=== PATIENT | female | born 1995 | race Caucasian/White ===

== ENCOUNTER 2023-06-03 06:36 | Outpatient (OUT) | payer BC, OTHER, SELFPAY ==
[2023-06-03 07:15] LABS: Basophils Percent Auto 0.3 % (0.2-2.0); Eosinophils Absolute Auto 0.1 10^3/uL (0.0-0.7); Eosinophils Percent Auto 1.2 % (0.9-7.0); Hematocrit 41.3 % (36.0-48.0); Hemoglobin 13.8 g/dL (12.0-16.0); Immature Granulocytes Abs Auto 0.01 10^3/uL (0.00-0.03); Immature Granulocytes Pct Auto 0.2 % (0.0-0.5); Lymphocytes Absolute Auto 1.7 10^3/uL (1.2-3.8); Lymphocytes Percent Auto 29.2 % (20.5-60.0); Mean Corpuscular HGB Conc 33.4 g/dL (29.9-35.2); Mean Corpuscular Hemoglobin 30.9 pg (26.7-34.0); Mean Corpuscular Volume 92.6 fL (81.0-99.0); Mean Platelet Volume 10.9 fL (9.5-13.5); Monocytes Absolute Auto 0.5 10^3/uL (0.3-0.8); Monocytes Percent Auto 8.6 % (1.7-12.0); Neutrophils Absolute Auto 3.6 10^3/uL (1.4-6.5); Neutrophils Percent Auto 60.5 % (43.0-75.0); Platelet Count 188 10^3/uL (150-450); Red Blood Count 4.46 10^6/uL (4.20-5.40); Red Cell Distribution Width 13.1 % (11.0-15.0)
[2023-06-03 07:21] LABS: Estimated Average Glucose 94 mg/dL; Glycohemoglobin A1C 4.9 % (4.5-6.2)
[2023-06-03 07:33] LABS: Alanine Aminotransferase 21 U/L (14-59); Albumin Globulin Ratio 1.1; Albumin Level 3.9 g/dL (3.4-5.0); Alkaline Phosphatase 49 U/L (46-116); Anion Gap 10.5; Aspartate Amino Transferase 17 U/L (15-37); BUN Creatinine Ratio 24.6; Bilirubin Total 0.2 mg/dL (0.2-1.0); Calcium 8.5 mg/dL (8.5-10.1); Carbon Dioxide 28.2 mmol/L (21.0-32.0); Chloride 105 mmol/L (98-107); Estimated GFR (African America >60 (>=60); Estimated GFR (Non-African Ame >60 (>=60); Globulin 3.5 g/dL; Glucose 100 mg/dL (74-106); Potassium 4.7 mmol/L (3.5-5.1); Sodium 139 mmol/L (136-145); Total Protein 7.4 g/dL (6.4-8.2)
[2023-06-03 08:24] LABS: Chol HDL Ratio 2.7; Cholesterol 126 mg/dL (<=200); HDL Cholesterol 47 mg/dL (40-60); Thyroid Stimulating Hormone 2.831 uIU/mL (0.358-3.740); Triglycerides 54 mg/dL (<=150); VLDL CHOLESTEROL 10.8 mg/dL
[2023-06-04 05:12] LABS: HCV Ab Non Reactive (Non Reactive); HIV Ab/p24 Ag Screen Non Reactive (Non Reactive)
== END 2023-06-03 06:37 | disposition home or self-care (01) ==
LOC: LAB 06:36
PROVIDERS: PCP Nurse Practitioner Primary Care; Visit Provider Nurse Practitioner Primary Care
DX: Z00.00 Encounter for general adult medical examination without abnormal findings (principal); Z11.59 Encounter for screening for other viral diseases; Z13.6 Encounter for screening for cardiovascular disorders; Z13.29 Encounter for screening for other suspected endocrine disorder; Z11.4 Encounter for screening for human immunodeficiency virus [HIV]
CPT/HCPCS: 36415; 80053; 80061; 83036; 84443; 85025; 86803; 87389

== ENCOUNTER 2023-07-06 21:55 | Outpatient (REF) | payer BC, SELFPAY ==
[2023-07-11 09:11] LABS: Age Gdln ACOG Testing Note (.); IGP, rfx Aptima HPV ASCU Note (.)
== END 2023-07-06 21:56 | disposition home or self-care (01) ==
LOC: LAB 21:55
PROVIDERS: PCP Nurse Practitioner Primary Care; Visit Provider Obstetrics & Gynecology
DX: Z01.419 Encounter for gynecological examination (general) (routine) without abnormal findings (principal)
CPT/HCPCS: G0145

== ENCOUNTER 2023-08-05 06:12 | Emergency (ER) | payer OTHER, BC, SELFPAY ==
[2023-08-05 06:20] VITALS: BP 98/70; PULSE 80; RESP 16; TEMP 36.6; O2SAT 98
--- NOTE | 2023-08-05 06:32 | PC.NURSE ---
Pt presents to ER post needle stick from work yesterday Pt states she had given a patient a vaccination and then stuck herself in the left hand with the needle Pt has no abnormal signs or symptoms at this time
--- NOTE | 2023-08-05 07:31 | ED.GENADUL1 ---
HPI - General Adult General Chief complaint: Extremity Injury, Upper Stated complaint: NEEDLE STICK/BWC Time Seen by Provider: 08/05/23 07:08 History of Present Illness HPI narrative: 28-year-old female presents for needlestick. 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 She was attempting to close the safety mechanism on the syringe and her hand slipped proximal to the base of the index finger. 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 The patient herself has no symptoms now. Related Data Home Medications Medication Instructions Recorded Confirmed No Known Home Medications 08/05/23 08/05/23 Allergies Allergy/AdvReac Type Severity Reaction Status Date / Time No Known Drug Allergies Allergy Verified 08/05/23 06:23 Review of Systems ROS Narrative A ten point review of systems is negative except as noted above. Exam Narrative Exam Narrative: Nurses note and vital signs reviewed and patient is not hypoxic. General: The patient appears well and in no apparent distress. Patient is resting comfortably sitting in the chair. Skin: Warm, dry, no pallor noted. There is no rash noted. Head: Normocephalic, atraumatic Eye: Normal conjunctiva, no drainage Ears, Nose, Mouth, and Throat: oral mucosa is moist. Nares patent. Cardiovascular: Regular Rate and Rhythm Respiratory: Patient is in no distress, no accessory muscle use, lungs are clear to auscultation, no wheezing, rales or rhonchi GI: nondistended Musculoskeletal: no erythema or dried blood on her hand Neurological: A&O, normal speech Psychiatric: Cooperative Constitutional Vital Signs, click to edit/add: Last Vital Signs Temp 97.8 F 08/05/23 06:20 Pulse 80 08/05/23 06:20 Resp 16 08/05/23 06:20 BP 98/70 08/05/23 06:20 Pulse Ox 98 08/05/23 06:20 O2 Del Method Room Air 08/05/23 06:20 Course Vital Signs Vital signs: Vital Signs Temperature 97.8 F 08/05/23 06:20 Pulse Rate 80 08/05/23 06:20 Respiratory Rate 16 08/05/23 06:20 Blood Pressure 98/70 08/05/23 06:20 Pulse Oximetry 98 08/05/23 06:20 Oxygen Delivery Method Room Air 08/05/23 06:20 Temperature 97.8 F 08/05/23 06:20 Pulse Rate 80 08/05/23 06:20 Respiratory Rate 16 08/05/23 06:20 Blood Pressure 98/70 08/05/23 06:20 Pulse Oximetry 98 08/05/23 06:20 Oxygen Delivery Method Room Air 08/05/23 06:20 Medical Decision Making MDM Narrative Medical decision making narrative: needlestick protocol followed. The patient's tetanus is up-to-date. She'll follow-up with occupational health. Differential Diagnosis Differential Diagnosis: needlestick Discharge Plan Discharge Chief Complaint: Extremity Injury, Upper Clinical Impression: Needlestick injury accident Patient Disposition: Home, Self-Care Time of Disposition Decision: 07:31 Condition: Good Mode of Transportation: Private Vehicle Prescriptions / Home Meds: No Action No Known Home Medications Instructions: Needle Stick Injuries (ED) Additional Instructions: follow-up with occupational health Stand Alone Forms: Portal Instructions Referrals: YANG EMANUEL APRN [Primary Care Provider] - 1 week
[2023-08-06 05:07] LABS: HBsAg Screen Negative (Negative); HCV Antibody Non Reactive (Non Reactive); HIV Ab/p24 Ag Screen Non Reactive (Non Reactive)
[2023-08-06 12:11] LABS: Rapid Plasma Reagin, Quant Non Reactive titer (NonRea<1:1)
== END 2023-08-05 08:41 | disposition home or self-care (01) ==
PROVIDERS: Emergency Provider Emergency Medicine; PCP Nurse Practitioner Primary Care
DX: S61.231A Puncture wound without foreign body of left index finger without damage to nail, initial encounter (principal); Z77.21 Contact with and (suspected) exposure to potentially hazardous body fluids; W46.1XXA Contact with contaminated hypodermic needle, initial encounter
CPT/HCPCS: 36415; 86592; 86803; 87340; 87389; 99283

== ENCOUNTER 2023-08-17 22:22 | Outpatient (REF) | payer BC, SELFPAY | END 2023-08-17 22:23 | disposition home or self-care (01) | LOC: LAB 22:22 | PROVIDERS: PCP Nurse Practitioner Primary Care; Visit Provider Nurse Practitioner Primary Care | DX: R30.0 Dysuria (principal) | CPT/HCPCS: 87086 ==

== ENCOUNTER 2023-10-15 07:23 | Outpatient (OUT) | payer BC, SELFPAY ==
[2023-10-15 08:32] LABS: HCG Quantitative 226 mIU/mL
--- OUTSIDE RECORDS SUMMARY | 2023-11-04 00:29 | XMS_ITS | CCD ---
Author Name Unknown Address [address] [place] [address] Organization [facility] Care Team Providers Care Photo Checker And Assembler Name Role Phone TARAS, DR EARLY Admitting Unavailable KARMARTK, DR EARLY Attending Unavailable HOY, DR GOLD Primary Care Unavailable KARASIK, DR EARLY Consulting Unavailable ZIEBER, DR SONIA Keen Consulting Unavailable KARASIK, DR EARLY Admitting Unavailable KARASIK, DR EARLY Attending Unavailable HOY, DR GOLD Primary Care Unavailable KARASIK, DR EARLY Consulting Unavailable KACEYY, DR GOLD Admitting Unavailable HOY, DR GOLD Attending Unavailable HOY, DR GOLD Primary Care Unavailable HOY, DR GOLD Consulting Unavailable HOY, DR GOLD Primary Care Unavailable HAWTHORNE, DR COREY Keen Admitting Unavailable HAWTHORNE, DR COREY Keen Attending Unavailable YAROSH, MARLENI Consulting Unavailable SHAISTA, VIVIEN Consulting Unavailable KACEYY, DR GOLD Admitting Unavailable HOY, DR GOLD Attending Unavailable HOY, DR GOLD Primary Care Unavailable HOY, DR GOLD Admitting Unavailable HOY, DR GOLD Attending Unavailable ROGERIO, DR GOLD Primary Care Unavailable KACEYY, DR GOLD Consulting Unavailable KACEYY, DR GOLD Admitting Unavailable HOY, DR GOLD Attending Unavailable HOY, DR GOLD Primary Care Unavailable HOY, DR GOLD Consulting Unavailable HOY, DR GOLD Admitting Unavailable KACEYY, DR GOLD Attending Unavailable KACEYY, DR GOLD Primary Care Unavailable ROGERIO, DR GOLD Consulting Unavailable KARASIK, DR EARLY Admitting Unavailable KARASIK, DR EARLY Attending Unavailable HOY, DR GOLD Primary Care Unavailable KARMARTK, DR EARLY Consulting Unavailable Problems Active Problems Problem Classification Problem Date Documented Date Episodic/Chronic Abdominal pain (4 sources) Pelvic and perineal pain; Translations: [PELVIC AND PERINEAL PAIN] Onset: 11-05-2022 Episodic Congestive heart failure; nonhypertensive (1 source) Unspecified diastolic (congestive) heart failure; Translations: [UNSPECIFIED DIASTOLIC HEART FAILURE] Onset: 02-05-2022 Chronic Deficiency and other anemia (1 source) Anemia, unspecified; Translations: [ANEMIA UNSPECIFIED] Onset: 11-07-2022 Episodic Diabetes mellitus without complication (1 source) Other abnormal glucose; Translations: [OTHER ABNORMAL GLUCOSE] Onset: 11-07-2022 Episodic Hypertension with complications and secondary hypertension (1 source) Hypertensive heart disease with heart failure; Translations: [HTN HEART DISEASE W/HEART FAIL] Onset: 02-05-2022 Chronic Malaise and fatigue (1 source) Other fatigue; Translations: [OTHER FATIGUE] Onset: 11-07-2022 Episodic Other female genital disorders (4 sources) Other specified noninflammatory disorders of vagina; Translations: [OTH SPEC NONINFLAMMATORY D/O VAGINA] Onset: 11-04-2022 Episodic Other upper respiratory infections (5 sources) Acute sinusitis, unspecified; Translations: [ACUTE SINUSITIS UNSPECIFIED] Onset: 01-15-2022 Episodic Unclassified (3 sources) CONTACT W/AND (SUSP) EXPOS COVID-19; Translations: [CONTACT W/AND (SUSP) EXPOS COVID-19] Onset: 01-15-2022 Viral infection (1 source) COVID-19; Translations: [COVID-19] Onset: 06-05-2022 Past or Other Problems Problem Classification Problem Date Documented Date Episodic/Chronic Immunizations and screening for infectious disease (1 source) Encounter for screening for human papillomavirus (HPV); Translations: [ENC SCREENING HUMAN PAPILLOMAVIRUS] Onset: 05-22-2022 Episodic Other circulatory disease (4 sources) Orthostatic hypotension; Translations: [ORTHOSTATIC HYPOTENSION] Onset: 02-01-2022 Episodic Other connective tissue disease (3 sources) Pain in right foot; Translations: [PAIN IN RIGHT FOOT] Onset: 03-27-2022 Episodic Other screening for suspected conditions (not mental disorders or infectious disease) (4 sources) Encounter for screening for malignant neoplasm of cervix; Translations: [ENC SCREENING MALIG NEOPLASM CERV] Onset: 05-16-2022 Episodic Other skin disorders (1 source) Corns and callosities; Translations: [CORNS AND CALLOSITIES] Onset: 03-28-2022 Episodic Skin and subcutaneous tissue infections (1 source) Cellulitis of right lower limb; Translations: [CELLULITIS OF RIGHT LOWER LIMB] Onset: 03-28-2022 Episodic Unclassified (1 source) CONTACT W/AND (SUSP) EXPOS COVID-19; Translations: [CONTACT W/AND (SUSP) EXPOS COVID-19] Onset: 06-04-2022 Results Test Name Value Interpretation Reference Range Facil ity CHLAMYDIA/GONOCOCCUS BACILIO (SW AB/URINE/PAPon 11-07-2022 Chlamydia trachomatis, BACILIO Negative Normal Negative [facility] Comment on above: Performed By: #### L IPID, CMP, T7, BNP, TSH #### [facility] [address], [place] [address] Dr. David Das Neisseria gonorrhoeae, BACILIO Negative Normal Negative [facility] Comment on above: Performed By: #### L IPID, CMP, T7, BNP, TSH #### [facility] [address], [place] [address] Dr. David Das US PELVIS AND TRANSVAGon US PELVIS AND TRANSVAG EXAMINATION: US P ARIEL AND TRANSVAG HISTORY: Pelvic and perineal pain COMPARISON: Ultrasound pelvis 10/30/2020 TECHNIQUE: Transabdominal and transvaginal sonographic examination. FINDINGS: UTERUS: Normal size and appearance. Uterus size: 9.4 x 5.0 x 5.0 cm ENDOMETRIUM: Normal homogeneous appearance. Endometrial thickness: 12 mm RIGHT OVARY: Normal size and appearance. Duplex Doppler demonstrates normal waveform and flow; resistive index 0.5. Ovary size: 3.5 x 2.3 x 3.5 cm LEFT OVARY: Normal size and appearance. Duplex Doppler demonstrates normal waveform and flow; resistive index 0.5. Ovary size: 2.8 x 1.7 x 3.2 cm CUL-DE-SAC: Unremarkable. No significant free fluid. BLADDER: Unremarkable. OTHER: None. IMPRESSION: 1. No acute or suspicious findings to account for patient's symptoms. Electronically authenticated by: SONIA CHEN Date: 2022-11-06 17:13 Normal [facility] V[facility]INITIS/VAGINOSIS DNA PROB Farhan 11-06-2022 Angelia species Negative Normal Negative [facility] Comment on above: Performed By: #### V AGINT #### [facility] [address] [place] [address] Dr. David Das Gardnerella vaginalis Negative Normal Negative [facility] Comment on above: Performed By: #### V AGINT #### [facility] [address] [place] [address] Dr. David Das Trichomonas vaginalis Negative Normal Negative [facility] Comment on above: Performed By: #### V AGINT #### [facility] [address] [place] [address] Dr. David Das INSULINon 11-04-2022 Insulin 17.4 uIU/mL Normal 2.6-24.9 [facility] Comment on above: Performed By: #### I NSULIN #### [facility] [address] [place] [address] Dr. David Das CBC AUTO DIFFon 11-03-2022 BASO # 0.0 103/ul Normal 0.0-0.1 [facility] Comment on above: Performed By: #### L IPID, CMP, T7, BNP, TSH #### [facility] [address] [place] [address] Dr. David Das Basophils/100 WBC (Bld) 0.4 % Normal 0.2-2.0 [facility] Comment on above: Performed By: #### L IPID, CMP, T7, BNP, TSH #### [facility] [address] [place] [address] Dr. David Das EO # 0.1 103/ul Normal 0.0-0.7 [facility] Comment on above: Performed By: #### L IPID, CMP, T7, BNP, TSH #### [facility] [address] [place] [address] Dr. David Das Eosinophils/100 WBC (Bld) 1.4 % Normal 0.9-7.0 [facility] Comment on above: Performed By: #### L IPID, CMP, T7, BNP, TSH #### [facility] [address] [place] [address] Dr. David Das Erythrocyte distribution wid th (RBC) [Ratio] 12.4 % Normal 11.0-15.0 [facility] Comment on above: Performed By: #### L IPID, CMP, T7, BNP, TSH #### [facility] [address] [place] [address] Dr. aDvid Das Hematocrit (Bld) [Volume fraction] 43.8 % Normal 3 6.0-48.0 [facility] Comment on above: Performed By: #### L IPID, CMP, T7, BNP, TSH #### [facility] [address] [place] [address] Dr. David Das Hemoglobin (Bld) [Mass/Vol] 14.6 g/dL Normal 12.0-16. 0 [facility] Comment on above: Performed By: #### L IPID, CMP, T7, BNP, TSH #### [facility] [address] [place] [address] Dr. David Das IG # 0.01 10e3/ul Normal 0.00-0.03 [facility] Comment on above: Performed By: #### L IPID, CMP, T7, BNP, TSH #### [facility] [address] [place] [address] Dr. David Das IG % 0.2 % Normal 0.0-0.5 [facility] Comment on above: Performed By: #### L IPID, CMP, T7, BNP, TSH #### [facility] [address] [place] [address] Dr. David Das LYMPH # 1.8 103/ul Normal 1.2-3.8 [facility] Comment on above: Performed By: #### L IPID, CMP, T7, BNP, TSH #### [facility] [address] [place] [address] Dr. David Das Lymphocytes/100 WBC (Bld) 33.3 % Normal 20.5-60.0 [facility] Comment on above: Performed By: #### L IPID, CMP, T7, BNP, TSH #### [facility] [address] [place] [address] Dr. David Das MANUAL DIFF REQ NO Normal [facility] Comment on above: Performed By: #### L IPID, CMP, T7, BNP, TSH #### [facility] [address] [place] [address] Dr. David Das MCH (RBC) [Entitic mass] 30.7 pg Normal 26.7-34.0 [facility] Comment on above: Performed By: #### L IPID, CMP, T7, BNP, TSH #### [facility] [address] [place] [address] Dr. David Das MCHC (RBC) [Mass/Vol] 33.3 g/dL Normal 29.9-35.2 [facility] Comment on above: Performed By: #### L IPID, CMP, T7, BNP, TSH #### [facility] [address] [place] [address] Dr. David Das MCV (RBC) [Entitic vol] 92.0 fL Normal 81.0-99.0 [facility] Comment on above: Performed By: #### L IPID, CMP, T7, BNP, TSH #### [facility] [address] [place] [address] Dr. David Das MONO # 0.4 103/ul Normal 0.3-0.8 [facility] Comment on above: Performed By: #### L IPID, CMP, T7, BNP, TSH #### [facility] [address] [place] [address] Dr. David Das Monocytes/100 WBC (Bld) 7.6 % Normal 1.7-12.0 [facility] Comment on above: Performed By: #### L IPID, CMP, T7, BNP, TSH #### [facility] [address] [place] [address] Dr. David Das NEUT # 3.2 103/ul Normal 1.4-6.5 [facility] Comment on above: Performed By: #### L IPID, CMP, T7, BNP, TSH #### [facility] [address] [place] [address] Dr. David Das Neutrophils/100 WBC (Bld) 57.1 % Normal 43.0-75.0 [facility] Comment on above: Performed By: #### L IPID, CMP, T7, BNP, TSH #### [facility] [address] [place] [address] Dr. David Das Platelet mean volume (Bld) [ Entitic vol] 10.5 fL Normal 9.5-13.5 [facility] Comment on above: Performed By: #### L IPID, CMP, T7, BNP, TSH #### [facility] [address] [place] [address] Dr. David Das PLT 200 103/ul Normal 150-450 [facility] Comment on above: Performed By: #### L IPID, CMP, T7, BNP, TSH #### [facility] [address] [place] [address] Dr. David Das RBC 4.76 106/ul Normal 4.20-5.40 [facility] Comment on above: Performed By: #### L IPID, CMP, T7, BNP, TSH #### [facility] [address] [place] [address] Dr. David Das WBC 5.5 103/ul Normal 4.0-11.0 [facility] Comment on above: Performed By: #### L IPID, CMP, T7, BNP, TSH #### [facility] [address] [place] [address] Dr. David Das FREE THYROXINE INDEX T7on FTI 2.38 Normal 1.30-4.50 [facility] Comment on above: Performed By: #### L IPID, CMP, T7, BNP, TSH #### [facility] [address] [place] [address] Dr. David Das T3U 33.0 % Normal 30.0-39.0 [facility] Comment on above: Performed By: #### L IPID, CMP, T7, BNP, TSH #### [facility] [address] [place] [address] Dr. David Das T4 [Mass/Vol] 7.20 ug/dL Normal 4.80-13.90 [facility] Comment on above: Performed By: #### L IPID, CMP, T7, BNP, TSH #### [facility] [address] [place] [address] [address] David Das GLYCOHEMOGLOBIN A1Con 2021 ADA RECOMMENDATION SEE BELOW Normal [facility] Comment on above: Result Comment: ADA RECOMMENDED LIMIT 4.0 - 6.0 ADA THERAPEUTIC TARGET < 7.0 ACTION SUGGESTED > 7.0 Performed By: #### L IPID, CMP, T7, BNP, TSH #### [facility] [address] [place] [address] [address] David Das Glucose [Mass/Vol] 103 mg/dL Normal [facility] Comment on above: Performed By: #### L IPID, CMP, T7, BNP, TSH #### [facility] [address] [place] [address] [address] David Das HbA1c (Bld) [Mass fraction] 5.2 % Normal 4.5-6.2 [facility] Comment on above: Performed By: #### L IPID, CMP, T7, BNP, TSH #### [facility] [address] [place] [address] [address] David Das IRONon 11-03-2022 Iron [Mass/Vol] 117.0 ug/dL Normal 50.0-170.0 [facility] Comment on above: Performed By: #### L IPID, CMP, T7, BNP, TSH #### [facility] [address] [place] [address] Dr. David Das LIPID PROFILEon 11-03-2022 CHOL-HDL RATIO NORM SEE BELOW Normal [facility] Comment on above: Result Comment: 3.3 - 4.4 LOW RISK 4.4 - 7.1 AVERAGE RISK 7.1 - 11.0 MODERATE RISK >11.0 HIGH RISK Performed By: #### L IPID, CMP, T7, BNP, TSH #### [facility] [address] [place] [address] [address] David Das Cholesterol [Mass/Vol] 120 mg/dL Normal <=200 Th [facility] Comment on above: Performed By: #### L IPID, CMP, T7, BNP, TSH #### [facility] [address] [place] [address] [address] David Das Cholesterol in HDL [Mass/Vol] 54 mg/dL Normal 40-60 [facility] Comment on above: Performed By: #### L IPID, CMP, T7, BNP, TSH #### [facility] [address] [place] [address] [address] David Das Cholesterol in LDL [Mass/Vol] 56.8 mg/dL Normal [facility] Comment on above: Performed By: #### L IPID, CMP, T7, BNP, TSH #### [facility] [address] [place] [address] Dr. David Das Cholesterol.total/Cholestero l in HDL [Mass ratio] 2.2 {ratio} Normal [facility] Comment on above: Performed By: #### L IPID, CMP, T7, BNP, TSH #### [facility] [address] [place] [address] Dr. David Das HDL NORMAL > or = 60 mg/dl - LO W CARDIOVASCULAR RISK <40 mg/dl - HIGH CARDIOVASCULAR RISK Normal [facility] Comment on above: Performed By: #### L IPID, CMP, T7, BNP, TSH #### [facility] [address] [place] [address] Dr. David Das LDL CALC NORMAL SEE BELOW Normal [facility] Comment on above: Result Comment: <100 mg/dl OPTIMAL 100 - 129 mg/dl NEAR OR ABOVE OPTIMAL 130 - 159 mg/dl BORDERLINE HIGH 160 - 189 mg/dl HIGH >190 mg/dl VERY HIGH Performed By: #### L IPID, CMP, T7, BNP, TSH #### [facility] [address] [place] [address] Dr. David Das Triglyceride [Mass/Vol] 46 mg/dL Normal <=150 T [facility] Comment on above: Performed By: #### L IPID, CMP, T7, BNP, TSH #### [facility] [address] [place] [address] Dr. David Das VLDL CALC 9.2 mg/dL Normal [facility] Comment on above: Performed By: #### L IPID, CMP, T7, BNP, TSH #### [facility] [address] [address] [address] David Das PROF 14(COMP METB)on 022 Albumin [Mass/Vol] 4.1 g/dL Normal 3.4-5.0 [facility] Comment on above: Performed By: #### L IPID, CMP, T7, BNP, TSH #### [facility] [address] [place] [address] [address] David Das Albumin/Globulin [Mass ratio] 1.2 {ratio} Normal [facility] Comment on above: Performed By: #### L IPID, CMP, T7, BNP, TSH #### [facility] [address] [place] [address] Dr. David Das ALP [Catalytic activity/Vol] 50 U/L Normal 46-116 [facility] Comment on above: Performed By: #### L IPID, CMP, T7, BNP, TSH #### [facility] [address] [place] [address] [address] David Das ALT [Catalytic activity/Vol] 15 U/L Normal 14-59 [facility] Comment on above: Performed By: #### L IPID, CMP, T7, BNP, TSH #### [facility] [address] [place] [address] [address] David Das Anion gap [Moles/Vol] 11.0 mmol/L Normal [facility] Comment on above: Performed By: #### L IPID, CMP, T7, BNP, TSH #### [facility] [address] [place] [address] [address] David Das AST [Catalytic activity/Vol] 16 U/L Normal 15-37 [facility] Comment on above: Performed By: #### L IPID, CMP, T7, BNP, TSH #### [facility] [address] [address] [address] David Das Bilirubin [Mass/Vol] 0.5 mg/dL Normal 0.2-1.0 [facility] Comment on above: Performed By: #### L IPID, CMP, T7, BNP, TSH #### [facility] [address] [address] [address] David Das Calcium [Mass/Vol] 8.7 mg/dL Normal 8.5-10.1 [facility] Comment on above: Performed By: #### L IPID, CMP, T7, BNP, TSH #### [facility] [address] [place] [address] [address] David Das Chloride [Moles/Vol] 104 mmol/L Normal 98-107 [facility] Comment on above: Performed By: #### L IPID, CMP, T7, BNP, TSH #### [facility] [address] [place] [address] Dr. David Das CO2 [Moles/Vol] 31.4 mmol/L Normal 21.0-32.0 [facility] Comment on above: Performed By: #### L IPID, CMP, T7, BNP, TSH #### [facility] [address] [place] [address] Dr. David Das Creatinine [Mass/Vol] 0.64 mg/dL Normal 0.55-1.02 [facility] Comment on above: Performed By: #### L IPID, CMP, T7, BNP, TSH #### [facility] [address] [place] [address] Dr. David Das EGFR-AF SWAZI >60 Normal >=60 [facility] Comment on above: Performed By: #### L IPID, CMP, T7, BNP, TSH #### [facility] [address] [place] [address] Dr. David Das EGFR-NON AF SWAZI >60 Normal >=60 [facility] Comment on above: Performed By: #### L IPID, CMP, T7, BNP, TSH #### [facility] [address] [place] [address] Dr. David Das Globulin (S) [Mass/Vol] 3.4 g/dL Normal T [facility] Comment on above: Performed By: #### L IPID, CMP, T7, BNP, TSH #### [facility] [address] [address] [address] David Das Glucose [Mass/Vol] 92 mg/dL Normal 74-106 [facility] Comment on above: Performed By: #### L IPID, CMP, T7, BNP, TSH #### [facility] [address] [place] [address] [address] David Das Potassium [Moles/Vol] 4.4 mmol/L Normal 3.5-5.1 [facility] Comment on above: Performed By: #### L IPID, CMP, T7, BNP, TSH #### [facility] [address] [place] [address] Dr. David Das Protein [Mass/Vol] 7.5 g/dL Normal 6.4-8.2 [facility] Comment on above: Performed By: #### L IPID, CMP, T7, BNP, TSH #### [facility] [address] [place] [address] Dr. David Das Sodium [Moles/Vol] 142 mmol/L Normal 136-145 [facility] Comment on above: Performed By: #### L IPID, CMP, T7, BNP, TSH #### [facility] [address] [place] [address] Dr. David Das Urea nitrogen [Mass/Vol] 11.0 mg/dL Normal 7.0-18.0 [facility] Comment on above: Performed By: #### L IPID, CMP, T7, BNP, TSH #### [facility] [address] [place] [address] Dr. David Das Urea nitrogen/Creatinine [Mass ratio] 17.2 mg/mg Normal [facility] Comment on above: Performed By: #### L IPID, CMP, T7, BNP, TSH #### [facility] [address] [place] [address] Dr. David Das TSHon 11-03-2022 TSH 1.923 uIU/mL Normal 0.358-3.740 [facility] Comment on above: Performed By: #### L IPID, CMP, T7, BNP, TSH #### [facility] [address] [address] [address] David Das Covid-19 PCR ([facility])on 05-17 SARS-CoV-2 (COVID-19) RNA BACILIO+probe Ql (Unsp spec) Detected Critically abnormal NOT DETECTED [facility] Comment on above: Result Comment: This test is not yet approved or cleared by the [place] FDA. When there are no FDA-approved or cleared tests available, and other criteria are met, FDA can make tests available under an emergency access mechanism called an Emergency Use Authorization (EUA). The EUA for this test is supported by the [place] of Health and Human Service's declaration that circumstances exist to justify the emergency use of in vitro diagnostics for the detection and/or diagnosis of the virus that causes COVID-19. This EUA will remain in effect for the duration of the COVID-19 declaration justifying emergency of IVDs, unless it is terminated or revoked by the FDA (after which the test may no longer be used). Performed By: #### C VDTBH #### [facility] [address] [address] [address] David Das PAP ACOG PANEL 2: 21 to 29on 05-23-2022 . . Normal [facility] Comment on above: Performed By: #### L IPID, CMP, T7, BNP, TSH #### [facility] [address] [id number] Daivd Das Age Gdln ACOG Testing - Normal [facility] Comment on above: Performed By: #### L IPID, CMP, T7, BNP, TSH #### [facility] [address], [place] [address] Dr. David Das DIAGNOSIS: Comment Normal [facility] Comment on above: Result Comment: NEGA TIVE FOR INTRAEPITHELIAL LESION OR MALIGNANCY. Performed By: #### L IPID, CMP, T7, BNP, TSH #### [facility] [address] [address] [address] David Das Methodology: Comment Normal [facility] Comment on above: Result Comment: This liquid based ThinPrep(R) pap test was screened with the use of an image guided system. Performed By: #### L IPID, CMP, T7, BNP, TSH #### [facility] [address] [address] [address] David Das Note: Comment Normal [facility] Comment on above: Result Comment: The Pap smear is a screening test designed to aid in the detection of premalignant and malignant conditions of the uterine cervix. It is not a diagnostic procedure and should not be used as the sole means of detecting cervical cancer. Both false-positive and false-negative reports do occur. . Performed By: #### L IPID, CMP, T7, BNP, TSH #### [facility] [address] [address] [address] David Das Performed by: Comment Normal [facility] Comment on above: Result Comment: Cayla Jay, Passenger Vessel Chef (ASCP) Performed By: #### L IPID, CMP, T7, BNP, TSH #### [facility] [address] [address] [address] David Das Reflex Criteria: Comment Normal [facility] Comment on above: Result Comment: The HPV DNA reflex criteria were not met with this specimen result therefore, no HPV testing was performed. . Performed By: #### L IPID, CMP, T7, BNP, TSH #### [facility] [address] [address] [address] David Das Specimen adequacy: Comment Normal [facility] Comment on above: Result Comment: Sati sfactory for evaluation. Endocervical and/or squamous metaplastic cells (endocervical component) are present. Areas of partially obscuring inflammatory exudate are present. Performed By: #### L IPID, CMP, T7, BNP, TSH #### [facility] [id number] David Das XR FOOT RT MIN 3 VIEWSon XR FOOT RT MIN 3 VIEWS IMAGES REVIEWED: XR FOOT RT MIN 3 VIEWS COMPARISON: None available. CLINICAL INDICATION: Pain, no injury. FINDINGS/IMPRESSION: Unremarkable radiographic appearance of the right foot. Electronically authenticated by: VIVIEN NOONAN Date: 2022-03-27 20:26 Normal [facility] Pathology Noteon 02-24-2022 Pathology Note [id number]:127 Normal [facility] Ambulatory Visit Summaryon 0 02-19-2022 Ambulatory Visit Summary ABEL ROBISON :1995 Visit Date:02/19/2022 Ambulatory Visit Instructions Your Diagnosis Changing nevus Your Care Team Attending Physician - CHAMP FUENTES, Marleni Keen Primary Care Physician - Rogerio FUENTES, Alla This Is Your Medications List ethinyl estradiol-norgestimate (Ortho Tri-Cyclen) Procedures Performed EGD - Esophagogastroduodenoscopy, Tonsillectomy. Medications What How Much When Instructions Unchanged ethinyl estradiol-norgestimate (Ortho Tri-Cyclen) 1 Tablets By Mouth Every day Allergies No Known Allergies No Known Medication Allergies Problems Ongoing - Any problem that you are currently receiving treatment for. Asthma BMI 26.0-26.9,adult Changing nevus IBS (irritable bowel syndrome) Orthostatic hypotension Scoliosis Normal [facility] General Surgery Office/Clini c Noteon 02-19-2022 General Surgery Office/Clinic Note Chief Complaint in-office excisional biopsy HPI Staff Presents for in-office excisional biopsy x 2. History of Present Illness patient here for excisional biopsy of right arm nevus; no changes since recent evaluation; also complains of enlarging right parietal scalp skin lesion, becomes irritated, no ulceration or bleeding. Review of Systems ROS - Provider Constitutional: no fever, no sweats, no weight loss. Eyes: no glasses, no blurred vision, no visual loss. ENMT: no dentures, no hoarseness, no swallowing difficulties, no hearing loss, no ear infection(s), no nose bleeds. Cardiovascular: normal blood pressure, no chest pain, regular heartbeat, no heart murmur. Respiratory: no shortness of breath, no cough, no asthma, no wheezing. Gastrointestinal: no nausea, no vomiting, no diarrhea, no constipation, no blood in stool, no change in bowel habits, no abdominal pain, no hepatitis. Genitourinary: no kidney stones, no urine infection, no dysuria. Musculoskeletal: no pain, no weakness. Skin: no changing moles, no rash, no skin lumps. Neurologic: no seizures, no epilepsy, no headache. Psychiatric: no emotional or psychiatric problem. Heme/Lymph: no bleeding problems, no anemia, no blood clots, no transfusions. Allergy/Immunologic: no swollen lymph nodes/glands, no IV drug abuse. Other: Additional ROS info: Except as noted in the above Review of Systems and in the History of Present Illness, all other systems have been reviewed and are negative or noncontributory. Physical Exam skin: right forearm with 6 mm raised irregular nevus, irregular pigmentation; right parietal scalp with 5 mm raised, nonpigmented verrucous lesion. Procedure patient brought to the procedure room, placed in supine position, area prepped and draped in sterile fashion; anesthetized with 1 % lidocaine; scalp lesion excised in elliptical fashion down to subcutaneous fat; total length 6mm; closed with interrupted 4-0 nylon sutures; right forearm lesion excised and closed in an identical fashion, total length 1.7 cm; tolerated well; ebl < 3 ml; sterile dressing applied. Assessment/Plan 1. 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 2. Neoplasm of uncertain behavior of skin (D48.5: Neoplasm of uncertain behavior of skin) see # 1 Follow-up No qualifying data available Problem List/Past Medical History Ongoing Asthma BMI 26.0-26.9,adult Changing nevus IBS (irritable bowel syndrome) Neoplasm of uncertain behavior of skin Orthostatic hypotension Scoliosis Historical No qualifying data Procedure/Surgical History EGD - Esophagogastroduodenoscopy, Tonsillectomy. Medications Ortho Tri-Cyclen, 1 tab(s), Oral, Daily Allergies No Known Allergies No Known Medication Allergies Social History Alcohol - Denies Alcohol Use, 02/12/2022 Substance Abuse - Denies Substance Abuse, 02/12/2022 Tobacco Never (less than 100 in lifetime) Tobacco Use:. Never Smokeless Tobacco Use:., 02/12/2022 Family History Anxiety: Mother. COPD: Mother. Depression: Father. Hypertension: Sister. Immunizations Vaccine Date Status influenza virus vaccine, inactivated 07/2021 Recorded Normal [facility] Comment on above: Result Comment: Elec tronically Signed By: CHAMP FUENTES, Marleni Fletcher\Date and Time Signed: 02/19/22 17:00 EDT Facesheeton 02-12-2022 Facesheet [id number] :127 Normal [facility] BNPon 02-01-2022 Natriuretic peptide B (Bld) [Mass/Vol] 64.0 pg/mL Normal <=450.0 [facility] Comment on above: Performed By: #### L IPID, CMP, T7, BNP, TSH #### [facility] [address] [place] [address] Dr. David Das CBC AUTO DIFFon 02-01-2022 BASO # 0.0 103/ul Normal 0.0-0.1 [facility] Comment on above: Performed By: #### L IPID, CMP, T7, BNP, TSH #### [facility] [address] [place] [address] Dr. David Das Basophils/100 WBC (Bld) 0.4 % Normal 0.2-2.0 T [facility] Comment on above: Performed By: #### L IPID, CMP, T7, BNP, TSH #### [facility] [address] [place] [address] Dr. David Das EO # 0.1 103/ul Normal 0.0-0.7 [facility] Comment on above: Performed By: #### L IPID, CMP, T7, BNP, TSH #### [facility] [address] [place] [address] Dr. David Das Eosinophils/100 WBC (Bld) 1.8 % Normal 0.9-7.0 [facility] Comment on above: Performed By: #### L IPID, CMP, T7, BNP, TSH #### [facility] [address] [place] [address] Dr. David Das Erythrocyte distribution wid th (RBC) [Ratio] 12.5 % Normal 11.0-15.0 [facility] Comment on above: Performed By: #### L IPID, CMP, T7, BNP, TSH #### [facility] [address] [place] [address] Dr. David Das Hematocrit (Bld) [Volume fraction] 43.6 % Normal 3 6.0-48.0 [facility] Comment on above: Performed By: #### L IPID, CMP, T7, BNP, TSH #### [facility] [address] [place] [address] Dr. David Das Hemoglobin (Bld) [Mass/Vol] 14.2 g/dL Normal 12.0-16. 0 [facility] Comment on above: Performed By: #### L IPID, CMP, T7, BNP, TSH #### [facility] [address] [place] [address] Dr. David Das IG # 0.01 10e3/ul Normal 0.00-0.03 [facility] Comment on above: Performed By: #### L IPID, CMP, T7, BNP, TSH #### [facility] [address] [place] [address] Dr. David Das IG % 0.2 % Normal 0.0-0.5 [facility] Comment on above: Performed By: #### L IPID, CMP, T7, BNP, TSH #### [facility] [address] [place] [address] Dr. David Das LYMPH # 1.8 103/ul Normal 1.2-3.8 [facility] Comment on above: Performed By: #### L IPID, CMP, T7, BNP, TSH #### [facility] [address] [place] [address] Dr. David Das Lymphocytes/100 WBC (Bld) 32.0 % Normal 20.5-60.0 [facility] Comment on above: Performed By: #### L IPID, CMP, T7, BNP, TSH #### [facility] [address] [place] [address] Dr. David Das MANUAL DIFF REQ NO Normal [facility] Comment on above: Performed By: #### L IPID, CMP, T7, BNP, TSH #### [facility] [address] [place] [address] Dr. David Das MCH (RBC) [Entitic mass] 30.8 pg Normal 26.7-34.0 [facility] Comment on above: Performed By: #### L IPID, CMP, T7, BNP, TSH #### [facility] [address] [place] [address] Dr. David Das MCHC (RBC) [Mass/Vol] 32.6 g/dL Normal 29.9-35.2 [facility] Comment on above: Performed By: #### L IPID, CMP, T7, BNP, TSH #### [facility] [address] [place] [address] Dr. David Das MCV (RBC) [Entitic vol] 94.6 fL Normal 81.0-99.0 [facility] Comment on above: Performed By: #### L IPID, CMP, T7, BNP, TSH #### [facility] [address] [place] [address] Dr. David Das MONO # 0.4 103/ul Normal 0.3-0.8 [facility] Comment on above: Performed By: #### L IPID, CMP, T7, BNP, TSH #### [facility] [address] [place] [address] Dr. David Das Monocytes/100 WBC (Bld) 6.5 % Normal 1.7-12.0 [facility] Comment on above: Performed By: #### L IPID, CMP, T7, BNP, TSH #### [facility] [address] [place] [address] Dr. David Das NEUT # 3.3 103/ul Normal 1.4-6.5 [facility] Comment on above: Performed By: #### L IPID, CMP, T7, BNP, TSH #### [facility] [address] [place] [address] Dr. David Das Neutrophils/100 WBC (Bld) 59.1 % Normal 43.0-75.0 [facility] Comment on above: Performed By: #### L IPID, CMP, T7, BNP, TSH #### [facility] [address] [address] [address] David Das Platelet mean volume (Bld) [ Entitic vol] 10.5 fL Normal 9.5-13.5 [facility] Comment on above: Performed By: #### L IPID, CMP, T7, BNP, TSH #### [facility] [address] [address] [address] David Das PLT 195 103/ul Normal 150-450 [facility] Comment on above: Performed By: #### L IPID, CMP, T7, BNP, TSH #### [facility] [address] [place] [address] Dr. David Das RBC 4.61 106/ul Normal 4.20-5.40 [facility] Comment on above: Performed By: #### L IPID, CMP, T7, BNP, TSH #### [facility] [address] [place] [address] Dr. David Das WBC 5.7 103/ul Normal 4.0-11.0 [facility] Comment on above: Performed By: #### L IPID, CMP, T7, BNP, TSH #### [facility] [address] [place] [address] Dr. David Das FREE THYROXINE INDEX T7on FTI 2.41 Normal [facility] Comment on above: Performed By: #### L IPID, CMP, T7, BNP, TSH #### [facility] [address] [place] [address] Dr. David Das T3U 33.0 % Normal 23.5-40.5 [facility] Comment on above: Performed By: #### L IPID, CMP, T7, BNP, TSH #### [facility] [address] [place] [address] Dr. David Das T4 [Mass/Vol] 7.30 ug/dL Normal 5.53-11.00 [facility] Comment on above: Performed By: #### L IPID, CMP, T7, BNP, TSH #### [facility] [address] [address] [address] David Das GLYCOHEMOGLOBIN A1Con 2021 ADA RECOMMENDATION ADA THERAPEUTIC TARG ET 6.0 - 7.0 ACTION SUGGESTED > 7.0 Normal [facility] Comment on above: Performed By: #### A 1C #### [facility] [address] [address] [address] David Das Glucose [Mass/Vol] 100 mg/dL Normal [facility] Comment on above: Performed By: #### A 1C #### [facility] [address] [address] [address] David Das HbA1c (Bld) [Mass fraction] 5.1 % Normal <=6.0 [facility] Comment on above: Performed By: #### A 1C #### [facility] [address] [address] [address] David Das IRONon 02-01-2022 Iron [Mass/Vol] 101.0 ug/dL Normal 37.0-170.0 [facility] Comment on above: Performed By: #### L IPID, CMP, T7, BNP, TSH #### [facility] [address] [address] [address] David Das LIPID PROFILEon 02-01-2022 CHOL-HDL RATIO NORM SEE BELOW Normal [facility] Comment on above: Result Comment: 3.3 - 4.4 LOW RISK 4.4 - 7.1 AVERAGE RISK 7.1 - 11.0 MODERATE RISK >11.0 HIGH RISK Performed By: #### L IPID, CMP, T7, BNP, TSH #### [facility] [address] [address] [address] David Das Cholesterol [Mass/Vol] 123 mg/dL Normal <=200 [facility] Comment on above: Performed By: #### L IPID, CMP, T7, BNP, TSH #### [facility] [address] [address] [address] David Das Cholesterol in HDL [Mass/Vol] 44 mg/dL Normal 40-60 [facility] Comment on above: Performed By: #### L IPID, CMP, T7, BNP, TSH #### [facility] [address] [address] [address] David Das Cholesterol in LDL [Mass/Vol] 63.2 mg/dL Normal [facility] Comment on above: Performed By: #### L IPID, CMP, T7, BNP, TSH #### [facility] [address] [address] [address] David Das Cholesterol.total/Cholestero l in HDL [Mass ratio] 2.8 {ratio} Normal [facility] Comment on above: Performed By: #### L IPID, CMP, T7, BNP, TSH #### [facility] [address] [place] [address] Dr. David Das HDL NORMAL > or = 60 mg/dl - LO W CARDIOVASCULAR RISK <40 mg/dl - HIGH CARDIOVASCULAR RISK Normal [facility] Comment on above: Performed By: #### L IPID, CMP, T7, BNP, TSH #### [facility] [address] [address] [address] David Das LDL CALC NORMAL SEE BELOW Normal [facility] Comment on above: Result Comment: <100 mg/dl OPTIMAL 100 - 129 mg/dl NEAR OR ABOVE OPTIMAL 130 - 159 mg/dl BORDERLINE HIGH 160 - 189 mg/dl HIGH >190 mg/dl VERY HIGH Performed By: #### L IPID, CMP, T7, BNP, TSH #### [facility] [address] [address] [address] David Das Triglyceride [Mass/Vol] 79 mg/dL Normal <=150 [facility] Comment on above: Performed By: #### L IPID, CMP, T7, BNP, TSH #### [facility] [address] [place] [address] Dr. David Das VLDL CALC 15.8 mg/dL Normal [facility] Comment on above: Performed By: #### L IPID, CMP, T7, BNP, TSH #### [facility] [address] [place] [address] Dr. David Das PROF 14(COMP METB)on 022 Albumin [Mass/Vol] 3.9 g/dL Normal 3.4-5.0 [facility] Comment on above: Performed By: #### L IPID, CMP, T7, BNP, TSH #### [facility] [address] [place] [address] Dr. David Das Albumin/Globulin [Mass ratio] 1.2 {ratio} Normal [facility] Comment on above: Performed By: #### L IPID, CMP, T7, BNP, TSH #### [facility] [address] [place] [address] Dr. David Das ALP [Catalytic activity/Vol] 49 U/L Normal 46-116 [facility] Comment on above: Performed By: #### L IPID, CMP, T7, BNP, TSH #### [facility] [address] [place] [address] Dr. David Das ALT [Catalytic activity/Vol] 13 U/L Critically low 14- 59 [facility] Comment on above: Performed By: #### L IPID, CMP, T7, BNP, TSH #### [facility] [address] [address] [address] David Das Anion gap [Moles/Vol] 12.6 mmol/L Normal [facility] Comment on above: Performed By: #### L IPID, CMP, T7, BNP, TSH #### [facility] [address] [place] [address] Dr. David Das AST [Catalytic activity/Vol] 10 U/L Critically low 15- 37 [facility] Comment on above: Performed By: #### L IPID, CMP, T7, BNP, TSH #### [facility] [address] [place] [address] Dr. David Das Bilirubin [Mass/Vol] 0.4 mg/dL Normal 0.2-1.3 [facility] Comment on above: Performed By: #### L IPID, CMP, T7, BNP, TSH #### [facility] [address] [place] [address] Dr. David Das Calcium [Mass/Vol] 8.7 mg/dL Normal 8.5-10.1 [facility] Comment on above: Performed By: #### L IPID, CMP, T7, BNP, TSH #### [facility] [address] [address] [address] David Das Chloride [Moles/Vol] 106 mmol/L Normal 98-107 [facility] Comment on above: Performed By: #### L IPID, CMP, T7, BNP, TSH #### [facility] [address] [address] [address] David Das CO2 [Moles/Vol] 27.9 mmol/L Normal 22.0-30.0 [facility] Comment on above: Performed By: #### L IPID, CMP, T7, BNP, TSH #### [facility] [address] [address] [address] David Das Creatinine [Mass/Vol] 0.69 mg/dL Normal 0.52-1.04 [facility] Comment on above: Performed By: #### L IPID, CMP, T7, BNP, TSH #### [facility] [address] [address] [address] David Das EGFR-AF SWAZI >60 Normal >=60 [facility] Comment on above: Performed By: #### L IPID, CMP, T7, BNP, TSH #### [facility] [address] [address] [address] David Das EGFR-NON AF SWAZI >60 Normal >=60 [facility] Comment on above: Performed By: #### L IPID, CMP, T7, BNP, TSH #### [facility] [address] [address] [address] David Das Globulin (S) [Mass/Vol] 3.2 g/dL Normal [facility] Comment on above: Performed By: #### L IPID, CMP, T7, BNP, TSH #### [facility] [address] [address] [address] David Das Glucose [Mass/Vol] 104 mg/dL Normal 74-106 [facility] Comment on above: Performed By: #### L IPID, CMP, T7, BNP, TSH #### [facility] [address] [place] [address] Dr. David Das Potassium [Moles/Vol] 4.5 mmol/L Normal 3.4-5.0 [facility] Comment on above: Performed By: #### L IPID, CMP, T7, BNP, TSH #### [facility] [address] [place] [address] Dr. David Das Protein [Mass/Vol] 7.1 g/dL Normal 6.1-8.2 [facility] Comment on above: Performed By: #### L IPID, CMP, T7, BNP, TSH #### [facility] [address] [place] [address] Dr. David Das Sodium [Moles/Vol] 142 mmol/L Normal 137-145 [facility] Comment on above: Performed By: #### L IPID, CMP, T7, BNP, TSH #### [facility] [address] [place] [address] Dr. David Das Urea nitrogen [Mass/Vol] 12.0 mg/dL Normal 7.0-18.0 [facility] Comment on above: Performed By: #### L IPID, CMP, T7, BNP, TSH #### [facility] [address] [place] [address] Dr. David Das Urea nitrogen/Creatinine [Mass ratio] 17.4 mg/mg Normal [facility] Comment on above: Performed By: #### L IPID, CMP, T7, BNP, TSH #### [facility] [address] [place] [address] Dr. David Das TSHon 02-01-2022 TSH 1.718 uIU/mL Normal 0.470-4.680 [facility] Comment on above: Performed By: #### L IPID, CMP, T7, BNP, TSH #### [facility] [address] [place] [address] Dr. David Das TSH RANGE SEE BELOW Normal [facility] Comment on above: Result Comment: <0.3 4 UIU/ml HYPERTHYROID 0.34-5.60 UIU/ml EUTHYROID >5.60 UIU/ml HYPOTHYROID Performed By: #### L IPID, CMP, T7, BNP, TSH #### [facility] [address], [place] [address] Dr. David Das Physician Referralon 022 Physician Referral [id number]:127 Normal [facility] Covid-19 PCR (CVDTBH)on 12-18 SARS-CoV-2 (COVID-19) RNA BACILIO+probe Ql (Unsp spec) Not detected Normal NOT DETECTED [facility] Comment on above: Result Comment: This test is not yet approved or cleared by the [place] FDA. When there are no FDA-approved or cleared tests available, and other criteria are met, FDA can make tests available under an emergency access mechanism called an Emergency Use Authorization (EUA). The EUA for this test is supported by the Facilitator of Health and Human Service's (HHS's) declaration that circumstances exist to justify the emergency use of in vitro diagnostics for the detection and/or diagnosis of the virus that causes COVID-19. This EUA will remain in effect (meaning this test can be used) for the duration of the COVID-19 declaration justifying emergency of IVDs, unless it is terminated or revoked by FDA (after which the test may no longer be used). When diagnostic testing is negative, the possibility of a false negative should be considered in the context of a patient's recent exposures and the presence of clinical signs and symptoms consistent with SARS-CoV-2. Performed By: #### C VDTBH #### [facility] [address], [place] [address] Dr. David Das Encounters Encounter Date Encounter Type Care Provider Facility Start: 11-05-2022 End: 11-06-[address] NNEKA GRAJEDA Facility:[facility] Start: 11-04-2022 End: 11-04-[address] NNEKA GRAJEDA Facility:[facility] Start: 11-03-2022 End: 11-04-[address] ALLA BEATTY Facility:[facility] Start: 08-22-[address] ALLA BEATTY Facility :[facility] Start: 06-04-2022 End: 06-04-[address] ALLA BEATTY Facility:[facility] Start: 05-16-2022 End: 05-16-[address] NNEKA GRAJEDA Facility:[facility] Start: 03-27-2022 End: 03-27-[address] ALLA BEATTY Facility:[facility] Start: 02-01-2022 End: 02-02-[address] ALLA BEATTY Facility:[facility] Start: 01-13-2022 End: 01-13-[address] ALLA BEATTY Facility:[facility] Payers Date Payer Category Payer Unknown [id number] 2.16.84 [id number] 1993 Unknown [id number] 2.16.84 [id number] 1993 Unknown [id number] 2.16.84 [id number] 1993 Unknown [id number] 2.16.84 [id number] 1993 Unknown [id number] 2.16.84 [id number] 1993 Unknown [id number] 2.16.84 [id number] 1993 Unknown [id number] .16.84 [id number] 1993 Unknown [id number] .16.84 [id number] 1993 Unknown [id number] 2.16.84 [id number] 1959 Self-pay 1961 Unknown [id number] 1959 Unknown [id number] 1959 Unknown [id number] 1961 Unknown [id number] Clinical Note 03-31-2022 Note Date & Type Note Facility 02-13-2022 Note Chief Complaint consultation for changing nevus HPI Staff 26 year old female presents on consultation from Dr. Beatty for changing nevus right forearm. History of Present Illness 26 yo female with h/o afib, IBS, referred for changing nevus right forearm; has increased in size and pigmentation is now irregular, no bleeding or ulceration, no personal or fmhx of skin cancer or melanoma. no asa or NSAID use. no tobacco use. Review of Systems PHQ Score Initial Depression Screen Score: 0 ROS - Provider Constitutional: no fever, no sweats, no weight loss. Eyes: no glasses, no blurred vision, no visual loss. ENMT: no dentures, no hoarseness, no swallowing difficulties, no hearing loss, no ear infection(s), no nose bleeds. Cardiovascular: normal blood pressure, no chest pain, regular heartbeat, no heart murmur. Respiratory: no shortness of breath, no cough, no asthma, no wheezing. Gastrointestinal: no nausea, no vomiting, no diarrhea, no constipation, no blood in stool, no change in bowel habits, no abdominal pain, no hepatitis. Genitourinary: no kidney stones, no urine infection, no dysuria. Musculoskeletal: no pain, no weakness. Skin: yes changing moles, no rash, no skin lumps. Neurologic: no seizures, no epilepsy, no headache. Psychiatric: no emotional or psychiatric problem. Heme/Lymph: no bleeding problems, no anemia, no blood clots, no transfusions. Allergy/Immunologic: no swollen lymph nodes/glands, no IV drug abuse. Other: Additional ROS info: Except as noted in the above Review of Systems and in the History of Present Illness, all other systems have been reviewed and are negative or noncontributory. Physical Exam Vitals & Measurements HR: 74(Peripheral) RR: 16 BP: 114/72 HT: 154.9 cm HT: 154.9 cm WT: 63.5 kg WT: 63.5 kg BMI: 26.46 HEENT: normal conjunctiva, sclera clear, no scleral icterus, EOM intact, PERRLA, oral mucosa moist without lesions. Neck: trachea midline, no mass, symmetric, no thyromegaly or nodules, no adenopathy Respiratory: lungs CTA, respirations non labored. Cardiovascular: regular rate and rhythm, no murmur, no pedal edema or varicosities. Musculoskeletal: normal gait, digits and nails without infection, nodes, cyanosis, clubbing. Skin: no rashes, 6 mm raised, pigmented nevus right forearm, irregular border and inrregular pigmentation, no ulceration, no subcutaneous nodules, induration. Psychiatric/Neuro: oriented to time, place, person, judgement normal, affect appropriate for age, insight intact, no focal deficits. Tests: review of old records completed, Discussed surgical options, risks, and possible complications with patient. Assessment/Plan 1. 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 Follow-up No qualifying data available Problem List/Past Medical History Ongoing Asthma BMI 26.0-26.9,adult Changing nevus IBS (irritable bowel syndrome) Orthostatic hypotension Scoliosis Historical No qualifying data Procedure/Surgical History EGD - Esophagogastroduodenoscopy, Tonsillectomy. Medications Ortho Tri-Cyclen, 1 tab(s), Oral, Daily Allergies No Known Allergies No Known Medication Allergies Social History Alcohol - Denies Alcohol Use, 02/12/2022 Substance Abuse - Denies Substance Abuse, 02/12/2022 Tobacco Never (less than 100 in lifetime) Tobacco Use:. Never Smokeless Tobacco Use:., 02/12/2022 Family History Anxiety: Mother. COPD: Mother. Depression: Father. Hypertension: Sister. Immunizations Vaccine Date Status influenza virus vaccine, inactivated 07/2021 Recorded [facility] Comment on above: Result Comment: Elec tronically Signed By: CHAMP FUENTES, Marleni Fletcher\Date and Time Signed: 02/13/22 15:41 EDT Summary Purpose Family History No Family History Records FoundNo Family History Records Found Advance Directives No Advanced Directives Records FoundNo Advanced Directives Records Found Additional Source Comments INFORMATION SOURCE (unrecogn ized section and content) DATE CREATED AUTHOR 02/25/2022 [facility] DATE CREATED AUTHOR AUTHOR'S ORGANIZ ATION 11/13/2022 [facility] FOR RECORDS PERTAINING TO PATIENTS WHO ARE OR HAVE BEEN ENROLLED IN A CHEMICAL DEPENDENCY/SUBSTANCEABUSE PROGRAM, SOME INFORMATION MAY BE OMITTED. This clinical summary was aggregated from multiple sources. Caution should be exercised in using it in the provision of clinical care. This summary normalizes information from multiple sources, and as a consequence, information in this document may materially change the coding, format and clinical context of patient data. In addition, data may be omitted in some cases. CLINICAL DECISIONS SHOULD BE BASED ON THE PRIMARY CLINICAL RECORDS. [employer] [facility]. provides no warranty or guarantee of the accuracy or completeness of information in this document.
== END 2023-10-15 07:24 | disposition home or self-care (01) ==
LOC: LAB 07:23
PROVIDERS: PCP Nurse Practitioner Primary Care
DX: Z32.00 Encounter for pregnancy test, result unknown (principal)
CPT/HCPCS: 36415; 84702

== ENCOUNTER 2023-10-19 08:29 | Outpatient (OUT) | payer BC, SELFPAY ==
[2023-10-19 09:48] LABS: HCG Quantitative 1340 mIU/mL
== END 2023-10-19 08:30 | disposition home or self-care (01) ==
LOC: LAB 08:32
PROVIDERS: PCP Nurse Practitioner Primary Care
DX: Z32.01 Encounter for pregnancy test, result positive (principal)
CPT/HCPCS: 36415; 84702

== ENCOUNTER 2023-12-14 14:56 | Outpatient (OUT) | payer BC, SELFPAY ==
--- OUTSIDE RECORDS SUMMARY | 2023-12-14 15:00 | XMS_ITS | CCD ---
Author Name Unknown Address [address] [place] [address] Organization [facility] Care Team Providers [facility] Director Name Role Phone TARAS, DR EARLY Admitting Unavailable KARASIK, DR EARLY Attending Unavailable HOY, DR GOLD Primary Care Unavailable KARASIK, DR EARLY Consulting Unavailable ZIEBER, DR SONIA Keen Consulting Unavailable KARASIK, DR EARLY Admitting Unavailable KARASIK, DR EARLY Attending Unavailable KACEYY, DR GOLD Primary Care Unavailable KARASIK, DR EARLY Consulting Unavailable HOY, DR GOLD Admitting Unavailable HOY, DR GOLD Attending Unavailable HOY, DR GOLD Primary Care Unavailable HOY, DR GOLD Consulting Unavailable HOY, DR GOLD Primary Care Unavailable MARINE, DR COREY Keen Admitting Unavailable HAWTHORNE, DR COREY Keen Attending Unavailable YAROSHMARLENI Consulting Unavailable SHAISTAVIVIEN Consulting Unavailable HOY, DR GOLD Admitting Unavailable HOY, DR GOLD Attending Unavailable HOY, DR GOLD Primary Care Unavailable HOY, DR GOLD Admitting Unavailable KACEYY, DR GOLD Attending Unavailable JESE, DR GOLD Primary Care Unavailable KACEYY, DR GOLD Consulting Unavailable HOY, DR GOLD Admitting Unavailable HOY, DR GOLD Attending Unavailable HOY, DR GOLD Primary Care Unavailable HOY, DR GOLD Consulting Unavailable KACEYY, DR GOLD Admitting Unavailable KACEYY, DR GOLD Attending Unavailable KACEYY, DR GOLD Primary Care Unavailable KACEYY, DR GOLD Consulting Unavailable KARASIK, DR EARLY Admitting Unavailable KARASIK, DR EARLY Attending Unavailable HOY, DR GOLD Primary Care Unavailable KARLETY, DR EARLY Consulting Unavailable GONZALES LEON Attending Unavailable Problems Active Problems Problem Classification Problem [...] Results Test Name Value Interpretation Reference Range Facility CHLAMYDIA/GONOCOCCUS BACILIO (SW AB/URINE/PAPon 11-07-2022 Chlamydia trachomatis, BACILIO Negative Normal Negative [facility] Comment on above: Performed By: #### L IPID, CMP, T7, BNP, TSH #### [facility] [address], [place] [address] Dr. David Das Neisseria gonorrhoeae, BACILIO Negative Normal Negative [facility] Comment on above: Performed By: #### L IPID, CMP, T7, BNP, TSH #### [facility] [address], [place] [address] Dr. David Das US PELVIS AND TRANSVAGon US PELVIS AND TRANSVAG EXAMINATION: US PELVIS AND TRANSVAG HISTORY: Pelvic and perineal pain [...] CHEN Date: 2022-11-06 17:13 Normal [facility] VAGINITIS/VAGINOSIS DNA PROB Farhan 11-06-2022 Angelia species Negative Normal Negative [facility] Comment on above: Performed By: #### V AGINT #### [facility] [address] [place] [address] Dr. David Das Gardnerella vaginalis Negative Normal Negative [facility] Comment on above: Performed By: #### V AGINT #### [facility] [address] [place] [address] Dr. David Das Trichomonas vaginalis Negative Normal Negative [facility] Comment on above: Performed By: #### V AGINT #### [facility] [address] [place] [address] Dr. David Das INSULINon 11-04-2022 Insulin 17.4 uIU/mL Normal 2.6-24.9 [facility] Comment on above: Performed By: #### I NSULIN #### [facility] [address] [place] [address] Dr. David Das CBC AUTO DIFFon 11-03-2022 BASO # 0.0 103/ul Normal 0.0-0.1 [facility] Comment on above: Performed By: #### L IPID, CMP, T7, BNP, TSH #### [facility] [address] [place] [address] Dr. David Das Basophils/100 WBC (Bld) 0.4 % Normal 0.2-2.0 [facility] Comment on above: Performed By: #### L IPID, CMP, T7, BNP, TSH #### [facility] [address] [place] [address] Dr. David Das EO # 0.1 103/ul Normal 0.0-0.7 [facility] Comment on above: Performed By: #### L IPID, CMP, T7, BNP, TSH #### [facility] [address] [place] [address] Dr. David Das Eosinophils/100 WBC (Bld) 1.4 % Normal 0.9-7.0 [facility] Comment on above: Performed By: #### L IPID, CMP, T7, BNP, TSH #### [facility] [address] [place] [address] Dr. David Das Erythrocyte distribution width (RBC) [Ratio] 12.4 % Normal 11.0-15.0 [facility] Comment on above: Performed By: #### L IPID, CMP, T7, BNP, TSH #### [facility] [address] [place] [address] Dr. David Das Hematocrit (Bld) [Volume fraction] 43.8 % Normal 36.0-48.0 [facility] Comment on above: Performed By: #### L IPID, CMP, T7, BNP, TSH #### [facility] [address] [place] [address] Dr. David Das Hemoglobin (Bld) [Mass/Vol] 14.6 g/dL Normal 12.0-16.0 [facility] Comment on above: Performed By: #### L IPID, CMP, T7, BNP, TSH #### [facility] [address] [place] [address] Dr. David Das IG # 0.01 10e3/ul Normal 0.00-0.03 [facility] Comment on above: Performed By: #### L IPID, CMP, T7, BNP, TSH #### [facility] [address] [place] [address] Dr. David Das IG % 0.2 % Normal 0.0-0.5 [facility] Comment on above: Performed By: #### L IPID, CMP, T7, BNP, TSH #### [facility] [address] [place] [address] Dr. David Das LYMPH # 1.8 103/ul Normal 1.2-3.8 [facility] Comment on above: Performed By: #### L IPID, CMP, T7, BNP, TSH #### [facility] [address] [place] [address] Dr. David Das Lymphocytes/100 WBC (Bld) 33.3 % Normal 20.5-60.0 [facility] Comment on above: Performed By: #### L IPID, CMP, T7, BNP, TSH #### [facility] [address] [place] [address] Dr. David Das MANUAL DIFF REQ NO Normal [facility] Comment on above: Performed By: #### L IPID, CMP, T7, BNP, TSH #### [facility] [address] [place] [address] Dr. David Das MCH (RBC) [Entitic mass] 30.7 pg Normal 26.7-34.0 [facility] Comment on above: Performed By: #### L IPID, CMP, T7, BNP, TSH #### [facility] [address] [place] [address] Dr. David Das MCHC (RBC) [Mass/Vol] 33.3 g/dL Normal 29.9-35.2 [facility] Comment on above: Performed By: #### L IPID, CMP, T7, BNP, TSH #### [facility] [address] [place] [address] Dr. David Das MCV (RBC) [Entitic vol] 92.0 fL Normal 81.0-99.0 [facility] Comment on above: Performed By: #### L IPID, CMP, T7, BNP, TSH #### [facility] [address] [place] [address] Dr. David Das MONO # 0.4 103/ul Normal 0.3-0.8 [facility] Comment on above: Performed By: #### L IPID, CMP, T7, BNP, TSH #### [facility] [address] [place] [address] Dr. David Das Monocytes/100 WBC (Bld) 7.6 % Normal 1.7-12.0 [facility] Comment on above: Performed By: #### L IPID, CMP, T7, BNP, TSH #### [facility] [address] [place] [address] Dr. David Das NEUT # 3.2 103/ul Normal 1.4-6.5 [facility] Comment on above: Performed By: #### L IPID, CMP, T7, BNP, TSH #### [facility] [address] [place] [address] Dr. David Das Neutrophils/100 WBC (Bld) 57.1 % Normal 43.0-75.0 [facility] Comment on above: Performed By: #### L IPID, CMP, T7, BNP, TSH #### [facility] [address] [place] [address] Dr. David Das Platelet mean volume (Bld) [Entitic vol] 10.5 fL Normal 9.5-13.5 [facility] Comment on above: Performed By: #### L IPID, CMP, T7, BNP, TSH #### [facility] [address] [place] [address] Dr. David Das PLT 200 103/ul Normal 150-450 [facility] Comment on above: Performed By: #### L IPID, CMP, T7, BNP, TSH #### [facility] [address] [place] [address] Dr. David Das RBC 4.76 106/ul Normal 4.20-5.40 [facility] Comment on above: Performed By: #### L IPID, CMP, T7, BNP, TSH #### [facility] [address] [place] [address] Dr. David Das WBC 5.5 103/ul Normal 4.0-11.0 [facility] Comment on above: Performed By: #### L IPID, CMP, T7, BNP, TSH #### [facility] [address] [place] [address] Dr. David Das FREE THYROXINE INDEX T7on FTI 2.38 Normal 1.30-4.50 [facility] Comment on above: Performed By: #### L IPID, CMP, T7, BNP, TSH #### [facility] [address] [place] [address] Dr. David Das T3U 33.0 % Normal 30.0-39.0 [facility] Comment on above: Performed By: #### L IPID, CMP, T7, BNP, TSH #### [facility] [address] [place] [address] Dr. David Das T4 [Mass/Vol] 7.20 ug/dL Normal 4.80-13.90 [facility] Comment on above: Performed By: #### L IPID, CMP, T7, BNP, TSH #### [facility] [address] [address] [address] David Das GLYCOHEMOGLOBIN A1Con 2021 ADA RECOMMENDATION SEE BELOW Normal [facility] Comment on above: Result Comment: ADA RECOMMENDED LIMIT 4.0 - 6.0 ADA THERAPEUTIC TARGET < 7.0 ACTION SUGGESTED > 7.0 Performed By: #### L IPID, CMP, T7, BNP, TSH #### [facility] [address] [address] [address] David Das Glucose [Mass/Vol] 103 mg/dL Normal [facility] Comment on above: Performed By: #### L IPID, CMP, T7, BNP, TSH #### [facility] [address] [address] [address] David Das HbA1c (Bld) [Mass fraction] 5.2 % Normal 4.5-6.2 [facility] Comment on above: Performed By: #### L IPID, CMP, T7, BNP, TSH #### [facility] [address] [address] [address] David Das IRONon 11-03-2022 Iron [Mass/Vol] 117.0 ug/dL Normal 50.0-170.0 [facility] Comment on above: Performed By: #### L IPID, CMP, T7, BNP, TSH #### [facility] [address] [address] [address] David Das LIPID PROFILEon 11-03-2022 CHOL-HDL RATIO NORM SEE BELOW Normal [facility] Comment on above: Result Comment: 3.3 - 4.4 LOW RISK 4.4 - 7.1 AVERAGE RISK 7.1 - 11.0 MODERATE RISK >11.0 HIGH RISK Performed By: #### L IPID, CMP, T7, BNP, TSH #### [facility] [address] [address] [address] David Das Cholesterol [Mass/Vol] 120 mg/dL Normal <=200 [facility] Comment on above: Performed By: #### L IPID, CMP, T7, BNP, TSH #### [facility] [address] [address] [address] David Das Cholesterol in HDL [Mass/Vol] 54 mg/dL Normal 40-60 [facility] Comment on above: Performed By: #### L IPID, CMP, T7, BNP, TSH #### [facility] [address] [address] [address] David Das Cholesterol in LDL [Mass/Vol] 56.8 mg/dL Normal [facility] Comment on above: Performed By: #### L IPID, CMP, T7, BNP, TSH #### [facility] [address] [address] [address] David Das Cholesterol.total/Ch olesterol in HDL [Mass ratio] 2.2 {ratio} Normal [facility] Comment on above: Performed By: #### L IPID, CMP, T7, BNP, TSH #### [facility] [address] [address] [address] David Das HDL NORMAL > or = 60 mg/dl - LO W CARDIOVASCULAR RISK <40 mg/dl - HIGH CARDIOVASCULAR RISK Normal [facility] Comment on above: Performed By: #### L IPID, CMP, T7, BNP, TSH #### [facility] [address] [address] [address] David Das LDL CALC NORMAL SEE BELOW Normal [facility] Comment on above: Result Comment: <100 mg/dl OPTIMAL 100 - 129 mg/dl NEAR OR ABOVE OPTIMAL 130 - 159 mg/dl BORDERLINE HIGH 160 - 189 mg/dl HIGH >190 mg/dl VERY HIGH Performed By: #### L IPID, CMP, T7, BNP, TSH #### [facility] [address] [address] [address] David Das Triglyceride [Mass/Vol] 46 mg/dL Normal <=150 [facility] Comment on above: Performed By: #### L IPID, CMP, T7, BNP, TSH #### [facility] [address] [address] [address] David Das VLDL CALC 9.2 mg/dL Normal [facility] Comment on above: Performed By: #### L IPID, CMP, T7, BNP, TSH #### [facility] [address] [place] [address] Dr. David Das PROF 14(COMP METB)on 022 Albumin [Mass/Vol] 4.1 g/dL Normal 3.4-5.0 [facility] Comment on above: Performed By: #### L IPID, CMP, T7, BNP, TSH #### [facility] [address] [place] [address] Dr. David Das Albumin/Globulin [Mass ratio] 1.2 {ratio} Normal [facility] Comment on above: Performed By: #### L IPID, CMP, T7, BNP, TSH #### [facility] [address] [place] [address] Dr. David Das ALP [Catalytic activity/Vol] 50 U/L Normal 46-116 [facility] Comment on above: Performed By: #### L IPID, CMP, T7, BNP, TSH #### [facility] [address] [place] [address] Dr. David Das ALT [Catalytic activity/Vol] 15 U/L Normal 14-59 [facility] Comment on above: Performed By: #### L IPID, CMP, T7, BNP, TSH #### [facility] [address] [place] [address] Dr. David Das Anion gap [Moles/Vol] 11.0 mmol/L Normal [facility] Comment on above: Performed By: #### L IPID, CMP, T7, BNP, TSH #### [facility] [address] [place] [address] Dr. David Das AST [Catalytic activity/Vol] 16 U/L Normal 15-37 [facility] Comment on above: Performed By: #### L IPID, CMP, T7, BNP, TSH #### [facility] [address] [place] [address] Dr. David Das Bilirubin [Mass/Vol] 0.5 mg/dL Normal 0.2-1.0 [facility] Comment on above: Performed By: #### L IPID, CMP, T7, BNP, TSH #### [facility] [address] [place] [address] Dr. David Das Calcium [Mass/Vol] 8.7 mg/dL Normal 8.5-10.1 [facility] Comment on above: Performed By: #### L IPID, CMP, T7, BNP, TSH #### [facility] [address] [place] [address] Dr. David Das Chloride [Moles/Vol] 104 mmol/L Normal 98-107 [facility] Comment on above: Performed By: #### L IPID, CMP, T7, BNP, TSH #### [facility] [address] [place] [address] Dr. David Das CO2 [Moles/Vol] 31.4 mmol/L Normal 21.0-32.0 [facility] Comment on above: Performed By: #### L IPID, CMP, T7, BNP, TSH #### [facility] [address] [place] [address] Dr. David Das Creatinine [Mass/Vol] 0.64 mg/dL Normal 0.55-1.02 [facility] Comment on above: Performed By: #### L IPID, CMP, T7, BNP, TSH #### [facility] [address] [place] [address] Dr. David Das EGFR-AF IRAQI >60 Normal >=60 [facility] Comment on above: Performed By: #### L IPID, CMP, T7, BNP, TSH #### [facility] [address] [place] [address] Dr. David Das EGFR-NON AF IRAQI >60 Normal >=60 [facility] Comment on above: Performed By: #### L IPID, CMP, T7, BNP, TSH #### [facility] [address] [place] [address] Dr. David Das Globulin (S) [Mass/Vol] 3.4 g/dL Normal [facility] Comment on above: Performed By: #### L IPID, CMP, T7, BNP, TSH #### [facility] [address] [place] [address] Dr. David Das Glucose [Mass/Vol] 92 mg/dL Normal 74-106 [facility] Comment on above: Performed By: #### L IPID, CMP, T7, BNP, TSH #### [facility] [address] [place] [address] Dr. David Das Potassium [Moles/Vol] 4.4 mmol/L Normal 3.5-5.1 [facility] Comment on above: Performed By: #### L IPID, CMP, T7, BNP, TSH #### [facility] [address] [place] [address] Dr. David Das Protein [Mass/Vol] 7.5 g/dL Normal 6.4-8.2 [facility] Comment on above: Performed By: #### L IPID, CMP, T7, BNP, TSH #### [facility] [address] [place] [address] Dr. David Das Sodium [Moles/Vol] 142 mmol/L Normal 136-145 [facility] Comment on above: Performed By: #### L IPID, CMP, T7, BNP, TSH #### [facility] [address] [place] [address] Dr. David Das Urea nitrogen [Mass/Vol] 11.0 mg/dL Normal 7.0-18.0 [facility] Comment on above: Performed By: #### L IPID, CMP, T7, BNP, TSH #### [facility] [address] [place] [address] Dr. David Das Urea nitrogen/Creatinine [Mass ratio] 17.2 mg/mg Normal [facility] Comment on above: Performed By: #### L IPID, CMP, T7, BNP, TSH #### [facility] [address] [place] [address] Dr. David Das TSHon 11-03-2022 TSH 1.923 uIU/mL Normal 0.358-3.740 [facility] Comment on above: Performed By: #### L IPID, CMP, T7, BNP, TSH #### [facility] [address] [place] [address] Dr. David Das Covid-19 PCR (CVDTB)on 05-17 SARS-CoV-2 (COVID-19) RNA BACILIO+probe Ql (Unsp spec) Detected Critically abnormal NOT DETECTED [facility] Comment on above: Result Comment: This test is not yet approved or cleared by the [place] FDA. When there are no FDA-approved or cleared tests available, and other criteria are met, FDA can make tests available under an emergency access mechanism called an Emergency Use Authorization (EUA). The EUA for this test is supported by the [place] of Health and Human Service's declaration that [...] used). Performed By: #### C VDTBH #### [facility] [address] [place] [address] Dr. David Das PAP ACOG PANEL 2: 21 to 29on 05-23-2022 . . Normal [facility] Comment on above: Performed By: #### L IPID, CMP, T7, BNP, TSH #### [facility] [address] [place] [address] Dr. David Das Age Gdln ACOG Testing - Normal [facility] Comment on above: Performed By: #### L IPID, CMP, T7, BNP, TSH #### [facility] [address] [place] [address] Dr. David Das DIAGNOSIS: Comment Normal [facility] Comment on above: Result Comment: NEGA TIVE FOR INTRAEPITHELIAL LESION OR MALIGNANCY. Performed By: #### L IPID, CMP, T7, BNP, TSH #### [facility] [address] [place] [address] Dr. David Das Methodology: Comment Normal [facility] Comment on above: Result Comment: This liquid based ThinPrep(R) pap test was screened with the use of an image guided system. Performed By: #### L IPID, CMP, T7, BNP, TSH #### [facility] [address] [address] [address] David Das Note: Comment Normal [facility] Comment on above: Result Comment: The Pap [...] L IPID, CMP, T7, BNP, TSH #### [facility] [address] [address] [address] David Das Performed by: Comment Normal [facility] Comment on above: Result Comment: Cayla Jay, Glass Embosser (ASCP) Performed By: #### L IPID, CMP, T7, BNP, TSH #### [facility] [address] [address] [address] David Das Reflex Criteria: Comment Normal [facility] Comment on above: Result Comment: The HPV DNA reflex criteria were not met with this specimen result therefore, no HPV testing was performed. . Performed By: #### L IPID, CMP, T7, BNP, TSH #### [facility] [address] [address] [address] David Das Specimen adequacy: Comment Normal [facility] Comment on above: Result Comment: Sati sfactory for evaluation. Endocervical and/or squamous metaplastic cells (endocervical component) are present. Areas of partially obscuring inflammatory exudate are present. Performed By: #### L IPID, CMP, T7, BNP, TSH #### [facility] [address] [address] [address] David Das XR FOOT RT MIN 3 VIEWSon XR FOOT RT MIN 3 VIEWS IMAGES REVIEWED: XR FOOT RT MIN 3 VIEWS COMPARISON: None available. CLINICAL INDICATION: Pain, no injury. FINDINGS/IMPRESSION: Unremarkable radiographic appearance of the right foot. Electronically authenticated by: VIVIEN NOONAN Date: 2022-03-27 20:26 Normal [facility] Pathology Noteon 02-24-2022 Pathology Note [id number]:127 Normal [facility] Ambulatory Visit Summaryon 0 02-19-2022 Ambulatory Visit Summary ABEL ROBISON :1995 Visit Date:02/19/2022 Ambulatory Visit Instructions Your Diagnosis Changing nevus Your Care Team Attending Physician - CHAMP FUENTES, Marleni Keen Primary Care Physician - Alla Sawant MD This Is Your Medications List ethinyl estradiol-norgestimat e (Ortho Tri-Cyclen) Procedures Performed EGD - Esophagogastroduodeno scopy, Tonsillectomy. Medications What How Much When Instructions Unchanged ethinyl estradiol-norgestimat e (Ortho Tri-Cyclen) 1 Tablets By Mouth Every day Allergies No Known Allergies No Known Medication Allergies Problems Ongoing - Any problem that you are currently receiving treatment for. Asthma BMI 26.0-26.9,adult Changing nevus IBS (irritable bowel syndrome) Orthostatic hypotension Scoliosis Normal [facility] General Surgery Office/Clini c Noteon 02-19-2022 [...] No qualifying data Procedure/Surgical History EGD - Esophagogastroduodeno scopy, Tonsillectomy. Medications Ortho Tri-Cyclen, 1 tab(s), Oral, [...] influenza virus vaccine, inactivated 07/2021 Recorded Normal [facility] Comment on above: Result Comment: Elec tronically Signed By: CHAMP FUENTES, Marleni Fletcher\Date and Time Signed: 02/19/22 17:00 EDT Facesheeton 02-12-2022 Facesheet [id number] .[id number]:127 Normal [facility] BNPon 02-01-2022 Natriuretic peptide B (Bld) [Mass/Vol] 64.0 pg/mL Normal <=450.0 [facility] Comment on above: Performed By: #### L IPID, CMP, T7, BNP, TSH #### [facility] [address] [place] [address] Dr. David Das CBC AUTO DIFFon 02-01-2022 BASO # 0.0 103/ul Normal 0.0-0.1 [facility] Comment on above: Performed By: #### L IPID, CMP, T7, BNP, TSH #### [facility] [address] [place] [address] Dr. David Das Basophils/100 WBC (Bld) 0.4 % Normal 0.2-2.0 [facility] Comment on above: Performed By: #### L IPID, CMP, T7, BNP, TSH #### [facility] [address] [place] [address] Dr. David Das EO # 0.1 103/ul Normal 0.0-0.7 [facility] Comment on above: Performed By: #### L IPID, CMP, T7, BNP, TSH #### [facility] [address] [place] [address] Dr. David Das Eosinophils/100 WBC (Bld) 1.8 % Normal 0.9-7.0 [facility] Comment on above: Performed By: #### L IPID, CMP, T7, BNP, TSH #### [facility] [address] [place] [address] Dr. David Das Erythrocyte distribution width (RBC) [Ratio] 12.5 % Normal 11.0-15.0 [facility] Comment on above: Performed By: #### L IPID, CMP, T7, BNP, TSH #### [facility] [address] [place] [address] Dr. David Das Hematocrit (Bld) [Volume fraction] 43.6 % Normal 36.0-48.0 [facility] Comment on above: Performed By: #### L IPID, CMP, T7, BNP, TSH #### [facility] [address] [place] [address] Dr. David Das Hemoglobin (Bld) [Mass/Vol] 14.2 g/dL Normal 12.0-16.0 [facility] Comment on above: Performed By: #### L IPID, CMP, T7, BNP, TSH #### [facility] [address] [place] [address] Dr. David aDs IG # 0.01 10e3/ul Normal 0.00-0.03 [facility] Comment on above: Performed By: #### L IPID, CMP, T7, BNP, TSH #### [facility] [address] [place] [address] Dr. David Das IG % 0.2 % Normal 0.0-0.5 [facility] Comment on above: Performed By: #### L IPID, CMP, T7, BNP, TSH #### [facility] [address] [place] [address] Dr. David Das LYMPH # 1.8 103/ul Normal 1.2-3.8 [facility] Comment on above: Performed By: #### L IPID, CMP, T7, BNP, TSH #### [facility] [address] [place] [address] Dr. David Das Lymphocytes/100 WBC (Bld) 32.0 % Normal 20.5-60.0 [facility] Comment on above: Performed By: #### L IPID, CMP, T7, BNP, TSH #### [facility] [address] [place] [address] Dr. David Das MANUAL DIFF REQ NO Normal [facility] Comment on above: Performed By: #### L IPID, CMP, T7, BNP, TSH #### [facility] [address] [place] [address] Dr. David Das MCH (RBC) [Entitic mass] 30.8 pg Normal 26.7-34.0 [facility] Comment on above: Performed By: #### L IPID, CMP, T7, BNP, TSH #### [facility] [address] [place] [address] Dr. David Das MCHC (RBC) [Mass/Vol] 32.6 g/dL Normal 29.9-35.2 [facility] Comment on above: Performed By: #### L IPID, CMP, T7, BNP, TSH #### [facility] [address] [place] [address] Dr. David Das MCV (RBC) [Entitic vol] 94.6 fL Normal 81.0-99.0 [facility] Comment on above: Performed By: #### L IPID, CMP, T7, BNP, TSH #### [facility] [address] [place] [address] Dr. David Das MONO # 0.4 103/ul Normal 0.3-0.8 [facility] Comment on above: Performed By: #### L IPID, CMP, T7, BNP, TSH #### [facility] [address] [place] [address] Dr. David Das Monocytes/100 WBC (Bld) 6.5 % Normal 1.7-12.0 [facility] Comment on above: Performed By: #### L IPID, CMP, T7, BNP, TSH #### [facility] [address] [place] [address] Dr. David Das NEUT # 3.3 103/ul Normal 1.4-6.5 [facility] Comment on above: Performed By: #### L IPID, CMP, T7, BNP, TSH #### [facility] [address] [place] [address] Dr. David Das Neutrophils/100 WBC (Bld) 59.1 % Normal 43.0-75.0 [facility] Comment on above: Performed By: #### L IPID, CMP, T7, BNP, TSH #### [facility] [address] [place] [address] Dr. David Das Platelet mean volume (Bld) [Entitic vol] 10.5 fL Normal 9.5-13.5 [facility] Comment on above: Performed By: #### L IPID, CMP, T7, BNP, TSH #### [facility] [address] [address] [address] David Das PLT 195 103/ul Normal 150-450 [facility] Comment on above: Performed By: #### L IPID, CMP, T7, BNP, TSH #### [facility] [address] [address] [address] David Das RBC 4.61 106/ul Normal 4.20-5.40 [facility] Comment on above: Performed By: #### L IPID, CMP, T7, BNP, TSH #### [facility] [address] [address] [address] David Das WBC 5.7 103/ul Normal 4.0-11.0 [facility] Comment on above: Performed By: #### L IPID, CMP, T7, BNP, TSH #### [facility] [address] [place] [address] Dr. David Das FREE THYROXINE INDEX T7on FTI 2.41 Normal [facility] Comment on above: Performed By: #### L IPID, CMP, T7, BNP, TSH #### [facility] [address] [place] [address] Dr. David Das T3U 33.0 % Normal 23.5-40.5 [facility] Comment on above: Performed By: #### L IPID, CMP, T7, BNP, TSH #### [facility] [address] [place] [address] Dr. David Das T4 [Mass/Vol] 7.30 ug/dL Normal 5.53-11.00 [facility] Comment on above: Performed By: #### L IPID, CMP, T7, BNP, TSH #### [facility] [address] [place] [address] Dr. David Das GLYCOHEMOGLOBIN A1Con 2021 ADA RECOMMENDATION ADA THERAPEUTIC TARGET 6.0 - 7.0 ACTION SUGGESTED > 7.0 Normal [facility] Comment on above: Performed By: #### A 1C #### [facility] [address] [address] [address] David Das Glucose [Mass/Vol] 100 mg/dL Normal [facility] Comment on above: Performed By: #### A 1C #### [facility] [address] [address] [address] David Das HbA1c (Bld) [Mass fraction] 5.1 % Normal <=6.0 [facility] Comment on above: Performed By: #### A 1C #### [facility] [address] [address] [address] David Das IRONon 02-01-2022 Iron [Mass/Vol] 101.0 ug/dL Normal 37.0-170.0 [facility] Comment on above: Performed By: #### L IPID, CMP, T7, BNP, TSH #### [facility] [address] [address] [address] David Das LIPID PROFILEon 02-01-2022 CHOL-HDL RATIO NORM SEE BELOW Normal [facility] Comment on above: Result Comment: 3.3 - 4.4 LOW RISK 4.4 - 7.1 AVERAGE RISK 7.1 - 11.0 MODERATE RISK >11.0 HIGH RISK Performed By: #### L IPID, CMP, T7, BNP, TSH #### [facility] [address] [address] [address] David Das Cholesterol [Mass/Vol] 123 mg/dL Normal <=200 [facility] Comment on above: Performed By: #### L IPID, CMP, T7, BNP, TSH #### [facility] [address] [address] [address] David Das Cholesterol in HDL [Mass/Vol] 44 mg/dL Normal 40-60 [facility] Comment on above: Performed By: #### L IPID, CMP, T7, BNP, TSH #### [facility] [address] [address] [address] David Das Cholesterol in LDL [Mass/Vol] 63.2 mg/dL Normal [facility] Comment on above: Performed By: #### L IPID, CMP, T7, BNP, TSH #### [facility] [address] [address] [address] David Das Cholesterol.total/Ch olesterol in HDL [Mass ratio] 2.8 {ratio} Normal [facility] Comment on above: Performed By: #### L IPID, CMP, T7, BNP, TSH #### [facility] [address] [address] [address] David Das HDL NORMAL > or = 60 mg/dl - LO W CARDIOVASCULAR RISK <40 mg/dl - HIGH CARDIOVASCULAR RISK Normal [facility] Comment on above: Performed By: #### L IPID, CMP, T7, BNP, TSH #### [facility] [address] [address] [address] David Das LDL CALC NORMAL SEE BELOW Normal [facility] Comment on above: Result Comment: <100 mg/dl OPTIMAL 100 - 129 mg/dl NEAR OR ABOVE OPTIMAL 130 - 159 mg/dl BORDERLINE HIGH 160 - 189 mg/dl HIGH >190 mg/dl VERY HIGH Performed By: #### L IPID, CMP, T7, BNP, TSH #### [facility] [address] [address] [address] David Das Triglyceride [Mass/Vol] 79 mg/dL Normal <=150 [facility] Comment on above: Performed By: #### L IPID, CMP, T7, BNP, TSH #### [facility] [address] [address] [address] David Das VLDL CALC 15.8 mg/dL Normal [facility] Comment on above: Performed By: #### L IPID, CMP, T7, BNP, TSH #### [facility] [address] [address] [address] David Das PROF 14(COMP METB)on 022 Albumin [Mass/Vol] 3.9 g/dL Normal 3.4-5.0 [facility] Comment on above: Performed By: #### L IPID, CMP, T7, BNP, TSH #### [facility] [address] [address] [address] David Das Albumin/Globulin [Mass ratio] 1.2 {ratio} Normal [facility] Comment on above: Performed By: #### L IPID, CMP, T7, BNP, TSH #### [facility] [address] [address] [address] David Das ALP [Catalytic activity/Vol] 49 U/L Normal 46-116 [facility] Comment on above: Performed By: #### L IPID, CMP, T7, BNP, TSH #### [facility] [address] [address] [address] David Das ALT [Catalytic activity/Vol] 13 U/L Critically low 14-59 [facility] Comment on above: Performed By: #### L IPID, CMP, T7, BNP, TSH #### [facility] [address] [address] [address] David Das Anion gap [Moles/Vol] 12.6 mmol/L Normal [facility] Comment on above: Performed By: #### L IPID, CMP, T7, BNP, TSH #### [facility] [address] [address] [address] David Das AST [Catalytic activity/Vol] 10 U/L Critically low 15-37 [facility] Comment on above: Performed By: #### L IPID, CMP, T7, BNP, TSH #### [facility] [address] [address] [address] David Das Bilirubin [Mass/Vol] 0.4 mg/dL Normal 0.2-1.3 [facility] Comment on above: Performed By: #### L IPID, CMP, T7, BNP, TSH #### [facility] [address] [address] [address] David Das Calcium [Mass/Vol] 8.7 mg/dL Normal 8.5-10.1 [facility] Comment on above: Performed By: #### L IPID, CMP, T7, BNP, TSH #### [facility] [address] [address] [address] David Das Chloride [Moles/Vol] 106 mmol/L Normal 98-107 [facility] Comment on above: Performed By: #### L IPID, CMP, T7, BNP, TSH #### [facility] [address] [address] [address] David Das CO2 [Moles/Vol] 27.9 mmol/L Normal 22.0-30.0 [facility] Comment on above: Performed By: #### L IPID, CMP, T7, BNP, TSH #### [facility] [address] [address] [address] David Das Creatinine [Mass/Vol] 0.69 mg/dL Normal 0.52-1.04 [facility] Comment on above: Performed By: #### L IPID, CMP, T7, BNP, TSH #### [facility] [address] [place] [address] Dr. David Das EGFR-AF IRAQI >60 Normal >=60 [facility] Comment on above: Performed By: #### L IPID, CMP, T7, BNP, TSH #### [facility] [address] [place] [address] Dr. David Das EGFR-NON AF IRAQI >60 Normal >=60 [facility] Comment on above: Performed By: #### L IPID, CMP, T7, BNP, TSH #### [facility] [address] [place] [address] Dr. David Das Globulin (S) [Mass/Vol] 3.2 g/dL Normal [facility] Comment on above: Performed By: #### L IPID, CMP, T7, BNP, TSH #### [facility] [address] [place] [address] Dr. David Das Glucose [Mass/Vol] 104 mg/dL Normal 74-106 [facility] Comment on above: Performed By: #### L IPID, CMP, T7, BNP, TSH #### [facility] [address] [place] [address] Dr. David Das Potassium [Moles/Vol] 4.5 mmol/L Normal 3.4-5.0 [facility] Comment on above: Performed By: #### L IPID, CMP, T7, BNP, TSH #### [facility] [address] [place] [address] Dr. David Das Protein [Mass/Vol] 7.1 g/dL Normal 6.1-8.2 [facility] Comment on above: Performed By: #### L IPID, CMP, T7, BNP, TSH #### [facility] [address] [place] [address] Dr. David Das Sodium [Moles/Vol] 142 mmol/L Normal 137-145 [facility] Comment on above: Performed By: #### L IPID, CMP, T7, BNP, TSH #### [facility] [address] [place] [address] Dr. David Das Urea nitrogen [Mass/Vol] 12.0 mg/dL Normal 7.0-18.0 [facility] Comment on above: Performed By: #### L IPID, CMP, T7, BNP, TSH #### [facility] [address] [place] [address] Dr. David Das Urea nitrogen/Creatinine [Mass ratio] 17.4 mg/mg Normal [facility] Comment on above: Performed By: #### L IPID, CMP, T7, BNP, TSH #### [facility] [address] [place] [address] Dr. David Das TSHon 02-01-2022 TSH 1.718 uIU/mL Normal 0.470-4.680 [facility] Comment on above: Performed By: #### L IPID, CMP, T7, BNP, TSH #### [facility] [address] [place] [address] Dr. David Das TSH RANGE SEE BELOW Normal [facility] Comment on above: Result Comment: <0.3 4 UIU/ml HYPERTHYROID 0.34-5.60 UIU/ml EUTHYROID >5.60 UIU/ml HYPOTHYROID Performed By: #### L IPID, CMP, T7, BNP, TSH #### [facility] [address] [place] [address] Dr. David Das Physician Referralon 03-16-2 022 Physician Referral [phone] [id number]:[id number] Normal [facility] Covid-19 PCR (CVDTB)on 12-18 SARS-CoV-2 (COVID-19) RNA BACILIO+probe Ql (Unsp spec) Not detected Normal NOT DETECTED [facility] Comment on above: Result Comment: This test is not yet approved or cleared by the [place] FDA. When there are no FDA-approved or cleared tests available, and other criteria are met, FDA can make tests available under an emergency access mechanism called an Emergency Use Authorization (EUA). The EUA for this test is supported by the [place] of Health and Human Service's (HHS's) declaration [...] consistent with SARS-CoV-2. Performed By: #### C [facility] #### [facility] [address] [place] [address] Dr. David Das Encounters Encounter Date Encounter Type Care Provider Facility Start: 12-09-2023 End: 12-09-2023 ambulatory GONZALES LEON Not Available Start: 11-05-2022 End: 11-06-[address] NNEKA GRAJEDA Facility:[facility] Start: 11-04-2022 End: 11-04-[address] NNEKA GRAJEDA Facility:[facility] Start: 11-03-2022 End: 11-04-[address] ALLA SAWANT Facility:[facility] Start: 08-22-[address] ALLA SAWANT Facility :[facility] Start: 06-04-2022 End: 06-04-[address] ALLA SAWANT Facility:[facility] Start: 05-16-2022 End: 05-16-[address] NNEKA GRAJEDA Facility:[facility] Start: 03-27-2022 End: 03-27-[address] ALLA SAWANT Facility:[facility] Start: 02-01-2022 End: 02-02-[address] ALLA SAWANT Facility:[facility] Start: 01-13-2022 End: 01-13-[address] ALLA SAWANT Facility:[facility] Payers Date Payer Category Payer Unknown [id number] 1995 Unknown [id number] 2.16.84 [id number] 1995 Unknown [id number] 2.16.84 [id number] 1993 Unknown [id number] 2.16.84 [id number] 1993 Unknown [id number] 2.16.84 [id number] 1993 Unknown [id number] 2.16.84 [id number] 1993 Unknown [id number] 2.16.84 [id number] 1993 Unknown [id number] 2.16.84 [id number] 1993 Unknown [id number] 2.16.84 [id number] 1993 Unknown [id number] 2.16.84 [id number] 1993 Unknown [id number] 2.16.84 [id number] 1959 Self-pay 1959 Unknown [id number] 1959 Unknown [id number] 1959 Unknown [id number] 1961 Unknown [id number] Clinical Note 02-13-2022 Note Date & Type Note Facility 02-13-2022 Note Chief Complaint consultation for changing nevus HPI Staff 26 year old female presents on consultation from Dr. Sawant for changing nevus right forearm. History of [...] Status influenza virus vaccine, inactivated 07/2021 Recorded [facility] Comment on above: Result Comment: Elec tronically Signed By: CHAMP FUENTES, Marleni Fletcher\Date and Time Signed: 02/13/22 15:41 EDT Summary Purpose Family History No Family History Records FoundNo Family History Records FoundNo Family History Records Found Advance Directives No Advanced Directives Records FoundNo Advanced Directives Records FoundNo Advanced Directives Records Found Additional Source Comments INFORMATION SOURCE (unrecogn ized section and content) DATE CREATED AUTHOR 02/25/2022 [facility] DATE CREATED AUTHOR AUTHOR'S ORGANIZ ATION 11/13/2022 [facility] DATE CREATED AUTHOR AUTHOR'S ORGANIZ ATION 12/10/2023 [facility] FOR RECORDS PERTAINING TO PATIENTS WHO ARE [...] BE BASED ON THE PRIMARY CLINICAL RECORDS. [facility] Values of n [facility]. provides no warranty or guarantee of the accuracy or completeness of information in this document.
--- NOTE | 2023-12-14 15:03 | US_ITS ---
[address] [address] Patient Name: ABEL ROBISON MRN: [id number] date: 1995 Sex: F Assigned Patient Location: [place] Current Patient Location: [place] Accession/Order Number: [id number] Exam Date: 12/14/2023 15:40 Report Date: 12/14/2023 17:11 At the request of: GONZALES LEON Procedure: US OB growth EXAMINATION: US OB growth HISTORY: bleeding in early O20.9 COMPARISON: No relevant comparison available. TECHNIQUE: Transabdominal sonographic examination was performed for obstetrical and evaluation. FINDINGS: Number: 1 Heart Rate: 159.8 bpm H.B. /min Amniotic Fluid Volume: Subjectively normal Placental Location: ANTERIOR Hypoechoic area measuring 3.9 x 2.8 x 4.4 cm adjacent to the gestational sac BIOMETRY: BPD: 2.1 cm 13 weeks 3 days , 51% HC: 8.2 cm 13 weeks 4 days, 50% AC: 6.6 cm 13 weeks 2 days, 70% FL: 0.9 cm 12 weeks 5 days, 27% EFW:68.1 grams; 2 oz, 28% FL/AC: 13.3 FL/BPD: 41.5 HC/AC: 1.2 GESTATIONAL AGE: Age by EDC: 13 weeks 0 days Age by current US: 13 weeks 2 days IBRAHIMA by current US: 06/18/24 IBRAHIMA by EDC: 06/20/24 US/US OB growth IMPRESSION: Normal interval growth 4.4 cm subchorionic hemorrhage *Reference: [employer] Practice Guideline for the performance of Obstetric Ultrasound Examinations, August 16, 2007. Electronically authenticated by: LINA MODI Date: 12/14/2023 17:11
== END 2023-12-14 14:57 | disposition home or self-care (01) ==
LOC: US 14:57
PROVIDERS: PCP Nurse Practitioner Primary Care; Visit Provider Obstetrics & Gynecology
DX: O20.9 Hemorrhage in early pregnancy, unspecified (principal); Z3A.13 13 weeks gestation of pregnancy
CPT/HCPCS: 76816

== ENCOUNTER 2023-12-28 12:46 | Outpatient (OUT) | payer BC, SELFPAY ==
--- OUTSIDE RECORDS SUMMARY | 2023-12-28 13:06 | XMS_ITS | CCD ---
Author Name Unknown Address [address] [place] [address] Organization [facility] Care Team Providers Care Fur Glazer Name Role Phone TARAS, DR EARLY Admitting [...] Chlamydia trachomatis, BACILIO Negative Normal Negative [facility] Comment on above: Performed By: #### L IPID, CMP, T7, BNP, TSH #### [facility] [address], [place] [address] Dr. David Das Neisseria gonorrhoeae, BACILIO Negative Normal Negative [facility] Comment on above: Performed By: #### L IPID, CMP, T7, BNP, TSH #### [facility] [address], [place] [address] Dr. David Das US PELVIS AND TRANSVAGon [...] SONIA CHEN Date: 2022-11-06 17:13 Normal [facility] VAGINITIS/VAGINOSIS DNA PROB Farhan 11-06-2022 Angelia species Negative Normal Negative [facility] [place] [facility] Comment on above: Performed By: #### V AGINT #### [facility] [address] [place] [address] Dr. David Das Gardnerella vaginalis Negative Normal Negative [facility] Comment on above: Performed By: #### V AGINT #### [facility] [address] [place] [address] Dr. David Das Trichomonas vaginalis Negative Normal Negative [facility] Comment on above: Performed By: #### V AGINT #### [facility] [address] [place] [address] Dr. David Das INSULINon 11-04-2022 Insulin 17.4 uIU/mL Normal 2.6-24.9 [facility] Comment on above: Performed By: #### I NSULIN #### [facility] [address] [place] [address] Dr. David Das CBC AUTO DIFFon 11-03-2022 BASO # 0.0 103/ul Normal 0.0-0.1 [facility] Comment on above: Performed By: #### L IPID, CMP, T7, BNP, TSH #### [facility] [address] [place] [address] Dr. David Das Basophils/100 WBC (Bld) 0.4 % Normal 0.2-2.0 [facility] Comment on above: Performed By: #### L IPID, CMP, T7, BNP, TSH #### [facility] [address] [place] [address] Dr. David Das EO # 0.1 103/ul Normal 0.0-0.7 [facility] Comment on above: Performed By: #### L IPID, CMP, T7, BNP, TSH #### [facility] [address] [place] [address] Dr. David Das Eosinophils/100 WBC (Bld) 1.4 % Normal 0.9-7.0 [facility] Comment on above: Performed By: #### L IPID, CMP, T7, BNP, TSH #### [facility] [address] [place] [address] Dr. David Das Erythrocyte distribution width (RBC) [Ratio] 12.4 % Normal 11.0-15.0 [facility] Comment on above: Performed By: #### L IPID, CMP, T7, BNP, TSH #### [facility] [address] [place] [address] Dr. David Das Hematocrit (Bld) [Volume fraction] 43.8 % Normal 36.0-48.0 [facility] Comment on above: Performed By: #### L IPID, CMP, T7, BNP, TSH #### [facility] [address] [place] [address] Dr. David Das Hemoglobin (Bld) [Mass/Vol] 14.6 g/dL Normal 12.0-16.0 [facility] Comment on above: Performed By: #### L IPID, CMP, T7, BNP, TSH #### [facility] [address] [place] [address] Dr. David Das IG # 0.01 10e3/ul Normal 0.00-0.03 [facility] Comment on above: Performed By: #### L IPID, CMP, T7, BNP, TSH #### [facility] [address] [place] [address] Dr. David Das IG % 0.2 % Normal 0.0-0.5 [facility] Comment on above: Performed By: #### L IPID, CMP, T7, BNP, TSH #### [facility] [address] [place] [address] Dr. David Das LYMPH # 1.8 103/ul Normal 1.2-3.8 [facility] Comment on above: Performed By: #### L IPID, CMP, T7, BNP, TSH #### [facility] [address] [place] [address] Dr. David Das Lymphocytes/100 WBC (Bld) 33.3 % Normal 20.5-60.0 [facility] Comment on above: Performed By: #### L IPID, CMP, T7, BNP, TSH #### [facility] [address] [place] [address] Dr. David Das MANUAL DIFF REQ NO Normal [facility] [place] [facility] Comment on above: Performed By: #### L IPID, CMP, T7, BNP, TSH #### [facility] [address] [place] [address] Dr. David Das MCH (RBC) [Entitic mass] 30.7 pg Normal 26.7-34.0 [facility] Comment on above: Performed By: #### L IPID, CMP, T7, BNP, TSH #### [facility] [address] [place] [address] Dr. David Das MCHC (RBC) [Mass/Vol] 33.3 g/dL Normal 29.9-35.2 [facility] Comment on above: Performed By: #### L IPID, CMP, T7, BNP, TSH #### [facility] [address] [place] [address] Dr. David Das MCV (RBC) [Entitic vol] 92.0 fL Normal 81.0-99.0 [facility] Comment on above: Performed By: #### L IPID, CMP, T7, BNP, TSH #### [facility] [address] [place] [address] Dr. David Das MONO # 0.4 103/ul Normal 0.3-0.8 [facility] Comment on above: Performed By: #### L IPID, CMP, T7, BNP, TSH #### [facility] [address] [place] [address] Dr. David Das Monocytes/100 WBC (Bld) 7.6 % Normal 1.7-12.0 [facility] Comment on above: Performed By: #### L IPID, CMP, T7, BNP, TSH #### [facility] [address] [place] [address] Dr. David Das NEUT # 3.2 103/ul Normal 1.4-6.5 [facility] Comment on above: Performed By: #### L IPID, CMP, T7, BNP, TSH #### [facility] [address] [place] [address] Dr. David Das Neutrophils/100 WBC (Bld) 57.1 % Normal 43.0-75.0 [facility] Comment on above: Performed By: #### L IPID, CMP, T7, BNP, TSH #### [facility] [address] [place] [address] Dr. David Das Platelet mean volume (Bld) [Entitic vol] 10.5 fL Normal 9.5-13.5 [facility] Comment on above: Performed By: #### L IPID, CMP, T7, BNP, TSH #### [facility] [address] [place] [address] Dr. David Das PLT 200 103/ul Normal 150-450 [facility] Comment on above: Performed By: #### L IPID, CMP, T7, BNP, TSH #### [facility] [address] [place] [address] Dr. David Das RBC 4.76 106/ul Normal 4.20-5.40 [facility] Comment on above: Performed By: #### L IPID, CMP, T7, BNP, TSH #### [facility] [address] [place] [address] Dr. David Das WBC 5.5 103/ul Normal 4.0-11.0 [facility] Comment on above: Performed By: #### L IPID, CMP, T7, BNP, TSH #### [facility] [address] [place] [address] Dr. David Das FREE THYROXINE INDEX T7on FTI 2.38 Normal 1.30-4.50 [facility] Comment on above: Performed By: #### L IPID, CMP, T7, BNP, TSH #### [facility] [address] [place] [address] Dr. David Das T3U 33.0 % Normal 30.0-39.0 [facility] Comment on above: Performed By: #### L IPID, CMP, T7, BNP, TSH #### [facility] [address] [place] [address] Dr. David Das T4 [Mass/Vol] 7.20 ug/dL Normal 4.80-13.90 [facility] [place] [facility] Comment on above: Performed By: #### L IPID, CMP, T7, BNP, TSH #### [facility] [address] [place] [address] [address] David Das GLYCOHEMOGLOBIN A1Con 2021 ADA RECOMMENDATION SEE BELOW Normal [facility] Comment on above: Result Comment: ADA RECOMMENDED LIMIT 4.0 - 6.0 ADA THERAPEUTIC TARGET < 7.0 ACTION SUGGESTED > 7.0 Performed By: #### L IPID, CMP, T7, BNP, TSH #### [facility] [address] [place] [address] [address] David Das Glucose [Mass/Vol] 103 mg/dL Normal [facility] Comment on above: Performed By: #### L IPID, CMP, T7, BNP, TSH #### [facility] [address] [address] [address] David Das HbA1c (Bld) [Mass fraction] 5.2 % Normal 4.5-6.2 [facility] Comment on above: Performed By: #### L IPID, CMP, T7, BNP, TSH #### [facility] [address] [address] [address] David Das IRONon 11-03-2022 Iron [Mass/Vol] 117.0 ug/dL Normal 50.0-170.0 [facility] Comment on above: Performed By: #### L IPID, CMP, T7, BNP, TSH #### [facility] [address] [address] [address] David Das LIPID PROFILEon 11-03-2022 CHOL-HDL RATIO NORM SEE BELOW Normal [facility] Comment on above: Result Comment: 3.3 - 4.4 LOW RISK 4.4 - 7.1 AVERAGE RISK 7.1 - 11.0 MODERATE RISK >11.0 HIGH RISK Performed By: #### L IPID, CMP, T7, BNP, TSH #### [facility] [address] [place] [address] [address] David Das Cholesterol [Mass/Vol] 120 mg/dL Normal <=200 [facility] Comment on above: Performed By: #### L IPID, CMP, T7, BNP, TSH #### [facility] [address] [address] [address] David Das Cholesterol in HDL [Mass/Vol] 54 mg/dL Normal 40-60 [facility] Comment on above: Performed By: #### L IPID, CMP, T7, BNP, TSH #### [facility] [address] [address] [address] David Das Cholesterol in LDL [Mass/Vol] 56.8 mg/dL Normal [facility] Comment on above: Performed By: #### L IPID, CMP, T7, BNP, TSH #### [facility] [address] [address] [address] David Das Cholesterol.total/Ch olesterol in HDL [Mass ratio] 2.2 {ratio} Normal [facility] Comment on above: Performed By: #### L IPID, CMP, T7, BNP, TSH #### [facility] [address] [address] [address] David Das HDL NORMAL > or = 60 mg/dl - LO W CARDIOVASCULAR RISK <40 mg/dl - HIGH CARDIOVASCULAR RISK Normal [facility] Comment on above: Performed By: #### L IPID, CMP, T7, BNP, TSH #### [facility] [address] [address] [address] David Das LDL CALC NORMAL SEE BELOW Normal [facility] [place] [facility] Comment on above: Result Comment: <100 mg/dl OPTIMAL 100 - 129 mg/dl NEAR OR ABOVE OPTIMAL 130 - 159 mg/dl BORDERLINE HIGH 160 - 189 mg/dl HIGH >190 mg/dl VERY HIGH Performed By: #### L IPID, CMP, T7, BNP, TSH #### [facility] [address] [place] [address] [address] David Das Triglyceride [Mass/Vol] 46 mg/dL Normal <=150 [facility] Comment on above: Performed By: #### L IPID, CMP, T7, BNP, TSH #### [facility] [address] [address] [address] David Das VLDL CALC 9.2 mg/dL Normal [facility] Comment on above: Performed By: #### L IPID, CMP, T7, BNP, TSH #### [facility] [address] [place] [address] Dr. David Das PROF 14(COMP METB)on 022 Albumin [Mass/Vol] 4.1 g/dL Normal 3.4-5.0 [facility] Comment on above: Performed By: #### L IPID, CMP, T7, BNP, TSH #### [facility] [address] [place] [address] Dr. David Das Albumin/Globulin [Mass ratio] 1.2 {ratio} Normal [facility] Comment on above: Performed By: #### L IPID, CMP, T7, BNP, TSH #### [facility] [address] [place] [address] Dr. David Das ALP [Catalytic activity/Vol] 50 U/L Normal 46-116 [facility] Comment on above: Performed By: #### L IPID, CMP, T7, BNP, TSH #### [facility] [address] [place] [address] Dr. David Das ALT [Catalytic activity/Vol] 15 U/L Normal 14-59 [facility] Comment on above: Performed By: #### L IPID, CMP, T7, BNP, TSH #### [facility] [address] [place] [address] Dr. David Das Anion gap [Moles/Vol] 11.0 mmol/L Normal [facility] Comment on above: Performed By: #### L IPID, CMP, T7, BNP, TSH #### [facility] [address] [place] [address] Dr. David Das AST [Catalytic activity/Vol] 16 U/L Normal 15-37 [facility] Comment on above: Performed By: #### L IPID, CMP, T7, BNP, TSH #### [facility] [address] [place] [address] Dr. David Das Bilirubin [Mass/Vol] 0.5 mg/dL Normal 0.2-1.0 [facility] Comment on above: Performed By: #### L IPID, CMP, T7, BNP, TSH #### [facility] [address] [place] [address] Dr. David Das Calcium [Mass/Vol] 8.7 mg/dL Normal 8.5-10.1 [facility] Comment on above: Performed By: #### L IPID, CMP, T7, BNP, TSH #### [facility] [address] [place] [address] Dr. David Das Chloride [Moles/Vol] 104 mmol/L Normal 98-107 [facility] Comment on above: Performed By: #### L IPID, CMP, T7, BNP, TSH #### [facility] [address] [place] [address] Dr. David Das CO2 [Moles/Vol] 31.4 mmol/L Normal 21.0-32.0 [facility] Comment on above: Performed By: #### L IPID, CMP, T7, BNP, TSH #### [facility] [address] [place] [address] Dr. David Das Creatinine [Mass/Vol] 0.64 mg/dL Normal 0.55-1.02 [facility] Comment on above: Performed By: #### L IPID, CMP, T7, BNP, TSH #### [facility] [address] [place] [address] Dr. David Das EGFR-AF ANDORRAN >60 Normal >=60 [facility] Comment on above: Performed By: #### L IPID, CMP, T7, BNP, TSH #### [facility] [address] [place] [address] Dr. David Das EGFR-NON AF ANDORRAN >60 Normal >=60 [facility] Comment on above: Performed By: #### L IPID, CMP, T7, BNP, TSH #### [facility] [address] [place] [address] Dr. David Das Globulin (S) [Mass/Vol] 3.4 g/dL Normal [facility] Comment on above: Performed By: #### L IPID, CMP, T7, BNP, TSH #### [facility] [address] [place] [address] Dr. David Das Glucose [Mass/Vol] 92 mg/dL Normal 74-106 [facility] Comment on above: Performed By: #### L IPID, CMP, T7, BNP, TSH #### [facility] [address] [place] [address] Dr. David Das Potassium [Moles/Vol] 4.4 mmol/L Normal 3.5-5.1 [facility] Comment on above: Performed By: #### L IPID, CMP, T7, BNP, TSH #### [facility] [address] [place] [address] Dr. David Das Protein [Mass/Vol] 7.5 g/dL Normal 6.4-8.2 [facility] Comment on above: Performed By: #### L IPID, CMP, T7, BNP, TSH #### [facility] [address] [place] [address] Dr. David Das Sodium [Moles/Vol] 142 mmol/L Normal 136-145 [facility] Comment on above: Performed By: #### L IPID, CMP, T7, BNP, TSH #### [facility] [address] [place] [address] Dr. David Das Urea nitrogen [Mass/Vol] 11.0 mg/dL Normal 7.0-18.0 [facility] Comment on above: Performed By: #### L IPID, CMP, T7, BNP, TSH #### [facility] [address] [place] [address] Dr. David Das Urea nitrogen/Creatinine [Mass ratio] 17.2 mg/mg Normal [facility] Comment on above: Performed By: #### L IPID, CMP, T7, BNP, TSH #### [facility] [address] [place] [address] Dr. David Das TSHon 11-03-2022 TSH 1.923 uIU/mL Normal 0.358-3.740 [facility] [place] [facility] Comment on above: Performed By: #### L IPID, CMP, T7, BNP, TSH #### [facility] [address] [place] [address] Dr. David Das Covid-19 PCR (CVDTB)on 05-17 SARS-CoV-2 (COVID-19) RNA BACILIO+probe Ql (Unsp spec) Detected Critically abnormal NOT DETECTED [facility] Comment on above: Result Comment: This test is not yet approved or cleared by the [place] FDA. When there are no FDA-approved or cleared tests available, and other criteria are met, FDA can make tests available under an emergency access mechanism called an Emergency Use Authorization (EUA). The EUA for this test is supported by the [place] of Health and Human Service's declaration that [...] used). Performed By: #### C VDTBH #### [facility] [address] [place] [address] Dr. David Das PAP ACOG PANEL 2: 21 to 29on 05-23-2022 . . Normal [facility] Comment on above: Performed By: #### L IPID, CMP, T7, BNP, TSH #### [facility] [address] [place] [address] Dr. David Das Age Gdln ACOG Testing - Normal [facility] Comment on above: Performed By: #### L IPID, CMP, T7, BNP, TSH #### [facility] [address] [place] [address] Dr. David Das DIAGNOSIS: Comment Normal [facility] Comment on above: Result Comment: NEGA TIVE FOR INTRAEPITHELIAL LESION OR MALIGNANCY. Performed By: #### L IPID, CMP, T7, BNP, TSH #### [facility] [address] [place] [address] Dr. David Das Methodology: Comment Normal [facility] Comment on above: Result Comment: This liquid based ThinPrep(R) pap test was screened with the use of an image guided system. Performed By: #### L IPID, CMP, T7, BNP, TSH #### [facility] [address] [address] [address] David Das Note: Comment Normal [facility] Comment on above: Result Comment: The Pap [...] L IPID, CMP, T7, BNP, TSH #### [facility] [address] [address] [address] David Das Performed by: Comment Normal [facility] [place] [facility] Comment on above: Result Comment: Cayla Jay, Pan Shaker (ASCP) Performed By: #### L IPID, CMP, T7, BNP, TSH #### [facility] [address] [address] [address] David Das Reflex Criteria: Comment Normal [facility] Comment on above: Result Comment: The HPV DNA reflex criteria were not met with this specimen result therefore, no HPV testing was performed. . Performed By: #### L IPID, CMP, T7, BNP, TSH #### [facility] [address] [address] [address] David Das Specimen adequacy: Comment Normal [facility] Comment on above: Result Comment: Sati sfactory for evaluation. Endocervical and/or squamous metaplastic cells (endocervical component) are present. Areas of partially obscuring inflammatory exudate are present. Performed By: #### L IPID, CMP, T7, BNP, TSH #### [facility] [address] [address] [address] David Das XR FOOT RT MIN 3 VIEWSon XR FOOT RT MIN 3 VIEWS IMAGES REVIEWED: XR FOOT RT MIN 3 VIEWS COMPARISON: None available. CLINICAL INDICATION: Pain, no injury. FINDINGS/IMPRESSION: Unremarkable radiographic appearance of the right foot. Electronically authenticated by: VIVIEN NOONAN Date: 2022-03-27 20:26 Normal [facility] Pathology Noteon 02-24-2022 Pathology Note [id number]:127 Normal [facility] Ambulatory Visit Summaryon 0 02-19-2022 Ambulatory [...] (irritable bowel syndrome) Orthostatic hypotension Scoliosis Normal [facility] General Surgery Office/Clini c Noteon 02-19-2022 [...] influenza virus vaccine, inactivated 07/2021 Recorded Normal [facility] Comment on above: Result Comment: Elec tronically Signed By: CHAMP FUENTES, Marleni Fletcher\Date and Time Signed: 02/19/22 17:00 EDT Facesheeton 02-12-2022 Facesheet [id number] .[id number]:127 Normal [facility] BNPon 02-01-2022 Natriuretic peptide B (Bld) [Mass/Vol] 64.0 pg/mL Normal <=450.0 [facility] Comment on above: Performed By: #### L IPID, CMP, T7, BNP, TSH #### [facility] [address] [place] [address] Dr. David Das CBC AUTO DIFFon 02-01-2022 BASO # 0.0 103/ul Normal 0.0-0.1 [facility] Comment on above: Performed By: #### L IPID, CMP, T7, BNP, TSH #### [facility] [address] [place] [address] Dr. David Das Basophils/100 WBC (Bld) 0.4 % Normal 0.2-2.0 [facility] Comment on above: Performed By: #### L IPID, CMP, T7, BNP, TSH #### [facility] [address] [place] [address] Dr. David Das EO # 0.1 103/ul Normal 0.0-0.7 [facility] Comment on above: Performed By: #### L IPID, CMP, T7, BNP, TSH #### [facility] [address] [place] [address] Dr. David Das Eosinophils/100 WBC (Bld) 1.8 % Normal 0.9-7.0 [facility] Comment on above: Performed By: #### L IPID, CMP, T7, BNP, TSH #### [facility] [address] [place] [address] Dr. David Das Erythrocyte distribution width (RBC) [Ratio] 12.5 % Normal 11.0-15.0 [facility] Comment on above: Performed By: #### L IPID, CMP, T7, BNP, TSH #### [facility] [address] [place] [address] Dr. David Das Hematocrit (Bld) [Volume fraction] 43.6 % Normal 36.0-48.0 [facility] Comment on above: Performed By: #### L IPID, CMP, T7, BNP, TSH #### [facility] [address] [place] [address] Dr. David Das Hemoglobin (Bld) [Mass/Vol] 14.2 g/dL Normal 12.0-16.0 [facility] Comment on above: Performed By: #### L IPID, CMP, T7, BNP, TSH #### [facility] [address] [place] [address] Dr. David Das IG # 0.01 10e3/ul Normal 0.00-0.03 [facility] Comment on above: Performed By: #### L IPID, CMP, T7, BNP, TSH #### [facility] [address] [place] [address] Dr. David Das IG % 0.2 % Normal 0.0-0.5 [facility] Comment on above: Performed By: #### L IPID, CMP, T7, BNP, TSH #### [facility] [address] [place] [address] Dr. David Das LYMPH # 1.8 103/ul Normal 1.2-3.8 [facility] Comment on above: Performed By: #### L IPID, CMP, T7, BNP, TSH #### [facility] [address] [place] [address] Dr. David Das Lymphocytes/100 WBC (Bld) 32.0 % Normal 20.5-60.0 [facility] Comment on above: Performed By: #### L IPID, CMP, T7, BNP, TSH #### [facility] [address] [place] [address] Dr. David Das MANUAL DIFF REQ NO Normal [facility] Comment on above: Performed By: #### L IPID, CMP, T7, BNP, TSH #### [facility] [address] [place] [address] Dr. David Das MCH (RBC) [Entitic mass] 30.8 pg Normal 26.7-34.0 [facility] Comment on above: Performed By: #### L IPID, CMP, T7, BNP, TSH #### [facility] [address] [place] [address] Dr. David Das MCHC (RBC) [Mass/Vol] 32.6 g/dL Normal 29.9-35.2 [facility] Comment on above: Performed By: #### L IPID, CMP, T7, BNP, TSH #### [facility] [address] [place] [address] Dr. David Das MCV (RBC) [Entitic vol] 94.6 fL Normal 81.0-99.0 [facility] Comment on above: Performed By: #### L IPID, CMP, T7, BNP, TSH #### [facility] [address] [place] [address] Dr. David Das MONO # 0.4 103/ul Normal 0.3-0.8 [facility] Comment on above: Performed By: #### L IPID, CMP, T7, BNP, TSH #### [facility] [address] [place] [address] Dr. David Das Monocytes/100 WBC (Bld) 6.5 % Normal 1.7-12.0 [facility] Comment on above: Performed By: #### L IPID, CMP, T7, BNP, TSH #### [facility] [address] [place] [address] Dr. David Das NEUT # 3.3 103/ul Normal 1.4-6.5 [facility] Comment on above: Performed By: #### L IPID, CMP, T7, BNP, TSH #### [facility] [address] [place] [address] Dr. David Das Neutrophils/100 WBC (Bld) 59.1 % Normal 43.0-75.0 [facility] Comment on above: Performed By: #### L IPID, CMP, T7, BNP, TSH #### [facility] [address] [place] [address] Dr. David Das Platelet mean volume (Bld) [Entitic vol] 10.5 fL Normal 9.5-13.5 [facility] Comment on above: Performed By: #### L IPID, CMP, T7, BNP, TSH #### [facility] [address] [address] [address] David Das PLT 195 103/ul Normal 150-450 [facility] Comment on above: Performed By: #### L IPID, CMP, T7, BNP, TSH #### [facility] [address] [address] [address] David Das RBC 4.61 106/ul Normal 4.20-5.40 [facility] Comment on above: Performed By: #### L IPID, CMP, T7, BNP, TSH #### [facility] [address] [address] [address] David Das WBC 5.7 103/ul Normal 4.0-11.0 [facility] Comment on above: Performed By: #### L IPID, CMP, T7, BNP, TSH #### [facility] [address] [place] [address] Dr. David Das FREE THYROXINE INDEX T7on FTI 2.41 Normal [facility] Comment on above: Performed By: #### L IPID, CMP, T7, BNP, TSH #### [facility] [address] [place] [address] Dr. David Das T3U 33.0 % Normal 23.5-40.5 [facility] Comment on above: Performed By: #### L IPID, CMP, T7, BNP, TSH #### [facility] [address] [place] [address] Dr. David Das T4 [Mass/Vol] 7.30 ug/dL Normal 5.53-11.00 [facility] Comment on above: Performed By: #### L IPID, CMP, T7, BNP, TSH #### [facility] [address] [place] [address] Dr. David Das GLYCOHEMOGLOBIN A1Con 2021 ADA RECOMMENDATION ADA THERAPEUTIC TARGET 6.0 - 7.0 ACTION SUGGESTED > 7.0 Normal [facility] Comment on above: Performed By: #### A 1C #### [facility] [address] [address] [address] David Das Glucose [Mass/Vol] 100 mg/dL Normal [facility] Comment on above: Performed By: #### A 1C #### [facility] [address] [address] [address] David Das HbA1c (Bld) [Mass fraction] 5.1 % Normal <=6.0 [facility] Comment on above: Performed By: #### A 1C #### [facility] [address] [address] [address] David Das IRONon 02-01-2022 Iron [Mass/Vol] 101.0 ug/dL Normal 37.0-170.0 [facility] Comment on above: Performed By: #### L IPID, CMP, T7, BNP, TSH #### [facility] [address] [address] [address] David Das LIPID PROFILEon 02-01-2022 CHOL-HDL RATIO NORM SEE BELOW Normal [facility] Comment on above: Result Comment: 3.3 - 4.4 LOW RISK 4.4 - 7.1 AVERAGE RISK 7.1 - 11.0 MODERATE RISK >11.0 HIGH RISK Performed By: #### L IPID, CMP, T7, BNP, TSH #### [facility] [address] [address] [address] David Das Cholesterol [Mass/Vol] 123 mg/dL Normal <=200 [facility] Comment on above: Performed By: #### L IPID, CMP, T7, BNP, TSH #### [facility] [address] [address] [address] David Das Cholesterol in HDL [Mass/Vol] 44 mg/dL Normal 40-60 [facility] Comment on above: Performed By: #### L IPID, CMP, T7, BNP, TSH #### [facility] [address] [address] [address] David Das Cholesterol in LDL [Mass/Vol] 63.2 mg/dL Normal [facility] Comment on above: Performed By: #### L IPID, CMP, T7, BNP, TSH #### [facility] [address] [address] [address] David Das Cholesterol.total/Ch olesterol in HDL [Mass ratio] 2.8 {ratio} Normal [facility] Comment on above: Performed By: #### L IPID, CMP, T7, BNP, TSH #### [facility] [address] [address] [address] David Das HDL NORMAL > or = 60 mg/dl - LO W CARDIOVASCULAR RISK <40 mg/dl - HIGH CARDIOVASCULAR RISK Normal [facility] Comment on above: Performed By: #### L IPID, CMP, T7, BNP, TSH #### [facility] [address] [address] [address] David Das LDL CALC NORMAL SEE BELOW Normal [facility] Comment on above: Result Comment: <100 mg/dl OPTIMAL 100 - 129 mg/dl NEAR OR ABOVE OPTIMAL 130 - 159 mg/dl BORDERLINE HIGH 160 - 189 mg/dl HIGH >190 mg/dl VERY HIGH Performed By: #### L IPID, CMP, T7, BNP, TSH #### [facility] [address] [address] [address] David Das Triglyceride [Mass/Vol] 79 mg/dL Normal <=150 [facility] Comment on above: Performed By: #### L IPID, CMP, T7, BNP, TSH #### [facility] [address] [address] [address] David Das VLDL CALC 15.8 mg/dL Normal [facility] Comment on above: Performed By: #### L IPID, CMP, T7, BNP, TSH #### [facility] [address] [address] [address] David Das PROF 14(COMP METB)on 022 Albumin [Mass/Vol] 3.9 g/dL Normal 3.4-5.0 [facility] Comment on above: Performed By: #### L IPID, CMP, T7, BNP, TSH #### [facility] [address] [address] [address] David Dsa Albumin/Globulin [Mass ratio] 1.2 {ratio} Normal [facility] Comment on above: Performed By: #### L IPID, CMP, T7, BNP, TSH #### [facility] [address] [address] [address] David Das ALP [Catalytic activity/Vol] 49 U/L Normal 46-116 [facility] Comment on above: Performed By: #### L IPID, CMP, T7, BNP, TSH #### [facility] [address] [address] [address] David Das ALT [Catalytic activity/Vol] 13 U/L Critically low 14-59 [facility] Comment on above: Performed By: #### L IPID, CMP, T7, BNP, TSH #### [facility] [address] [address] [address] David Das Anion gap [Moles/Vol] 12.6 mmol/L Normal [facility] Comment on above: Performed By: #### L IPID, CMP, T7, BNP, TSH #### [facility] [address] [address] [address] David Das AST [Catalytic activity/Vol] 10 U/L Critically low 15-37 [facility] Comment on above: Performed By: #### L IPID, CMP, T7, BNP, TSH #### [facility] [address] [address] [address] David Das Bilirubin [Mass/Vol] 0.4 mg/dL Normal 0.2-1.3 [facility] Comment on above: Performed By: #### L IPID, CMP, T7, BNP, TSH #### [facility] [address] [address] [address] David Das Calcium [Mass/Vol] 8.7 mg/dL Normal 8.5-10.1 [facility] Comment on above: Performed By: #### L IPID, CMP, T7, BNP, TSH #### [facility] [address] [address] [address] David Das Chloride [Moles/Vol] 106 mmol/L Normal 98-107 [facility] Comment on above: Performed By: #### L IPID, CMP, T7, BNP, TSH #### [facility] [address] [address] [address] David Das CO2 [Moles/Vol] 27.9 mmol/L Normal 22.0-30.0 [facility] Comment on above: Performed By: #### L IPID, CMP, T7, BNP, TSH #### [facility] [address] [address] [address] David Das Creatinine [Mass/Vol] 0.69 mg/dL Normal 0.52-1.04 [facility] Comment on above: Performed By: #### L IPID, CMP, T7, BNP, TSH #### [facility] [address] [place] [address] Dr. David Das EGFR-AF ANDORRAN >60 Normal >=60 [facility] Comment on above: Performed By: #### L IPID, CMP, T7, BNP, TSH #### [facility] [address] [place] [address] Dr. David Das EGFR-NON AF ANDORRAN >60 Normal >=60 [facility] Comment on above: Performed By: #### L IPID, CMP, T7, BNP, TSH #### [facility] [address] [place] [address] Dr. David Das Globulin (S) [Mass/Vol] 3.2 g/dL Normal [facility] Comment on above: Performed By: #### L IPID, CMP, T7, BNP, TSH #### [facility] [address] [place] [address] Dr. David Das Glucose [Mass/Vol] 104 mg/dL Normal 74-106 [facility] Comment on above: Performed By: #### L IPID, CMP, T7, BNP, TSH #### [facility] [address] [place] [address] Dr. David Das Potassium [Moles/Vol] 4.5 mmol/L Normal 3.4-5.0 [facility] Comment on above: Performed By: #### L IPID, CMP, T7, BNP, TSH #### [facility] [address] [place] [address] Dr. David Das Protein [Mass/Vol] 7.1 g/dL Normal 6.1-8.2 [facility] Comment on above: Performed By: #### L IPID, CMP, T7, BNP, TSH #### [facility] [address] [place] [address] Dr. David Das Sodium [Moles/Vol] 142 mmol/L Normal 137-145 [facility] Comment on above: Performed By: #### L IPID, CMP, T7, BNP, TSH #### [facility] [address] [place] [address] Dr. David Das Urea nitrogen [Mass/Vol] 12.0 mg/dL Normal 7.0-18.0 [facility] Comment on above: Performed By: #### L IPID, CMP, T7, BNP, TSH #### [facility] [address] [place] [address] Dr. David Das Urea nitrogen/Creatinine [Mass ratio] 17.4 mg/mg Normal [facility] Comment on above: Performed By: #### L IPID, CMP, T7, BNP, TSH #### [facility] [address] [place] [address] Dr. David Das TSHon 02-01-2022 TSH 1.718 uIU/mL Normal 0.470-4.680 [facility] Comment on above: Performed By: #### L IPID, CMP, T7, BNP, TSH #### [facility] [address] [place] [address] Dr. David Das TSH RANGE SEE BELOW Normal [facility] Comment on above: Result Comment: <0.3 4 UIU/ml HYPERTHYROID 0.34-5.60 UIU/ml EUTHYROID >5.60 UIU/ml HYPOTHYROID Performed By: #### L IPID, CMP, T7, BNP, TSH #### [facility] [address] [place] [address] Dr. David Das Physician Referralon 03-16-2 022 Physician Referral [phone] [id number]:[id number] Normal [facility] Covid-19 PCR (CVDTB)on 12-18 SARS-CoV-2 (COVID-19) RNA BACILIO+probe Ql (Unsp spec) Not detected Normal NOT DETECTED [facility] Comment on above: Result Comment: This test is not yet approved or cleared by the [place] FDA. When there are no FDA-approved or cleared tests available, and other criteria are met, FDA can make tests available under an emergency access mechanism called an Emergency Use Authorization (EUA). The EUA for this test is supported by the [place] of Health and Human Service's (HHS's) declaration [...] #### [facility] #### [facility] [address] [place] [address] Dr. David Das Encounters Encounter Date Encounter [...] Facility:[facility] Payers Date Payer Category Payer Unknown [id number] 1995 Unknown [id number] 2.16.84 [id number] 1993 Unknown [id number] 2.16.84 [id number] 1993 Unknown [id number] 2.16.84 [id number] 1993 Unknown [id number] 2.16.84 [id number] 1993 Unknown [id number] 2.16.84 [id number] 1993 Unknown [id number] 2.16.84 [id number] 1993 Unknown [id number] 2.16.84 [id number] 1993 Unknown [id number] 2.16.84 [id number] 1993 Unknown [id number] 2.16.84 [id number] 1993 Unknown [id number] 2.16.84 [id number] 1959 Self-pay 1959 Unknown [id number] 1959 Unknown [id number] 1959 Unknown [id number] 1959 Unknown [id number] Clinical Note 02-13-2022 Note Date & Type [...] Status influenza virus vaccine, inactivated 07/2021 Recorded [facility] Comment on above: Result Comment: Elec [...] section and content) DATE CREATED AUTHOR 02/25/2022 [facility] DATE CREATED AUTHOR AUTHOR'S ORGANIZ ATION 11/13/2022 [facility] DATE CREATED AUTHOR AUTHOR'S ORGANIZ ATION 12/10/2023 [facility] FOR RECORDS PERTAINING TO PATIENTS WHO [...] BE BASED ON THE PRIMARY CLINICAL RECORDS. [facility] [employer] [facility]. provides no warranty or guarantee of the accuracy or completeness of information in this document.
[2023-12-28 14:14] LABS: Basophils Percent Auto 0.3 % (0.2-2.0); Eosinophils Absolute Auto 0.1 10^3/uL (0.0-0.7); Eosinophils Percent Auto 0.6 % (0.9-7.0); Hematocrit 36.6 % (36.0-48.0); Hemoglobin 12.2 g/dL (12.0-16.0); Immature Granulocytes Abs Auto 0.04 10^3/uL (0.00-0.03); Immature Granulocytes Pct Auto 0.5 % (0.0-0.5); Lymphocytes Percent Auto 23.3 % (20.5-60.0); Mean Corpuscular HGB Conc 33.3 g/dL (29.9-35.2); Mean Corpuscular Hemoglobin 31.5 pg (26.7-34.0); Mean Corpuscular Volume 94.6 fL (81.0-99.0); Mean Platelet Volume 11.3 fL (9.5-13.5); Monocytes Absolute Auto 0.5 10^3/uL (0.3-0.8); Monocytes Percent Auto 6.3 % (1.7-12.0); Platelet Count 208 10^3/uL (150-450); Red Blood Count 3.87 10^6/uL (4.20-5.40); Red Cell Distribution Width 13.3 % (11.0-15.0); White Blood Count 8.6 10^3/uL (4.0-11.0)
[2023-12-29 06:12] LABS: Rubella Antibodies, IgG 1.69 index (Immune >0.99)
[2023-12-29 12:10] LABS: Rapid Plasma Reagin, Quant Non Reactive titer (NonRea<1:1)
[2024-01-04 12:13] LABS: AFP Value 37.6 ng/mL (.); Gest. Age on Collection Date 14.7 weeks (.); Gestat. Age Based On Ultrasound (.); Insulin Dep Diabetes No (.); Maternal Age At EDD 30.9 yr (.); OSBR Risk 1 IN See interpretation. (.); Results Report (.)
== END 2023-12-28 12:47 | disposition home or self-care (01) ==
LOC: LAB 12:46
PROVIDERS: PCP Nurse Practitioner Primary Care; Visit Provider Obstetrics & Gynecology
DX: Z34.91 Encounter for supervision of normal pregnancy, unspecified, first trimester (principal); N92.6 Irregular menstruation, unspecified; Z36.0 Encounter for antenatal screening for chromosomal anomalies
CPT/HCPCS: 36415; 82105; 85025; 86592; 86593; 86762; 86850; 86900; 86901; 87086

== ENCOUNTER 2024-01-11 14:44 | Outpatient (OUT) | payer BC, SELFPAY ==
--- NOTE | 2024-01-11 14:48 | US_ITS ---
[address] [address] Patient Name: ABEL ROBISON MRN: [id number] date: 1995 Sex: F Assigned Patient Location: US Current Patient Location: US Accession/Order Number: [id number] Exam Date: 01/11/2024 14:50 Report Date: 01/11/2024 15:22 At the request of: GONZALES LEON Procedure: US OB growth EXAMINATION: US OB growth HISTORY: subchorionic hemorrhage of placenta in second trimester COMPARISON: 12/14/2023 FINDINGS: Heart Rate: 159.8 bpm Amniotic Fluid Volume: Subjectively normal Number: 1.0 Position: Cephalic presentation, longitudinal lie PROCEDURE: Anterior fundal. No intraplacental or retroplacental echogenic abnormality BIOMETRY: BPD: 3.7 cm cm; 17 weeks 3 days; 68% HC: 13.6 cmcm; 17 weeks 1 days , 44% AC: 11.9 cm cm; 17 weeks 5 days, 71% FL: 2.2 cm cm; 16 weeks 4 days; 29.6 % % EFW: 183.0 grams, 6 ounces, 53% FL/AC: 18.5 FL/BPD: 59.2 HC/AC: 1.1 GESTATIONAL AGE: Age by EDC: 17 weeks 0 days IBRAHIMA by EDC: 06/20/2024 Age by US: 17 weeks 2 days IBRAHIMA by US: 06/18/2024 US/US OB growth IMPRESSION: Normal placenta Normal interval growth Electronically authenticated by: LINA MODI Date: 01/11/2024 15:22
[2024-01-13 01:07] LABS: Gest. Age on Collection Date 16.7 weeks (.); Gestat. Age Based On As provided (.); Insulin Dep Diabetes No (.); Maternal Age At EDD 30.9 yr (.); OSBR Risk 1 IN 3133 (.); Results Report (.)
== END 2024-01-11 14:45 | disposition home or self-care (01) ==
LOC: US 14:44
PROVIDERS: PCP Nurse Practitioner Primary Care; Visit Provider Obstetrics & Gynecology
DX: O41.8X20 Other specified disorders of amniotic fluid and membranes, second trimester, not applicable or unspecified (principal); O46.8X2 Other antepartum hemorrhage, second trimester; Z3A.17 17 weeks gestation of pregnancy
CPT/HCPCS: 36415; 76816; 82105

== ENCOUNTER 2024-03-09 12:03 | Outpatient (OUT) | payer BC, SELFPAY ==
[2024-03-09 13:43] LABS: Glucose 1 Hour 147 mg/dL (<130)
[2024-03-09 14:26] LABS: Basophils Percent Auto 0.2 % (0.2-2.0); Eosinophils Percent Auto 0.3 % (0.9-7.0); Hematocrit 35.8 % (36.0-48.0); Hemoglobin 11.8 g/dL (12.0-16.0); Immature Granulocytes Abs Auto 0.07 10^3/uL (0.00-0.03); Immature Granulocytes Pct Auto 0.8 % (0.0-0.5); Lymphocytes Absolute Auto 1.8 10^3/uL (1.2-3.8); Lymphocytes Percent Auto 20.3 % (20.5-60.0); Mean Corpuscular Hemoglobin 31.6 pg (26.7-34.0); Mean Corpuscular Volume 95.7 fL (81.0-99.0); Mean Platelet Volume 11.2 fL (9.5-13.5); Monocytes Absolute Auto 0.4 10^3/uL (0.3-0.8); Monocytes Percent Auto 4.8 % (1.7-12.0); Neutrophils Absolute Auto 6.5 10^3/uL (1.4-6.5); Neutrophils Percent Auto 73.6 % (43.0-75.0); Platelet Count 186 10^3/uL (150-450); Red Blood Count 3.74 10^6/uL (4.20-5.40); Red Cell Distribution Width 12.7 % (11.0-15.0); White Blood Count 8.8 10^3/uL (4.0-11.0)
== END 2024-03-09 12:04 | disposition home or self-care (01) ==
LOC: LAB 12:04
PROVIDERS: PCP Nurse Practitioner Primary Care; Visit Provider Obstetrics & Gynecology
DX: Z13.1 Encounter for screening for diabetes mellitus (principal)
CPT/HCPCS: 36415; 82950; 85025

== ENCOUNTER 2024-03-14 07:01 | Outpatient (OUT) | payer BC, SELFPAY ==
--- OUTSIDE RECORDS SUMMARY | 2024-03-14 07:04 | XMS_ITS | CCD ---
Author Organization [facility] Care Team Providers Care Tax Record Clerk Name Role Phone TARAS, DR EARLY Admitting [...] COREY Keen Attending Unavailable YAROSHMARLENI Consulting Unavailable SHAISTA, VIVIEN Consulting Unavailable KACEYY, [...] Care Unavailable HOY, DR GOLD Consulting Unavailable KARASIK, DR EARLY Admitting Unavailable KARMARTK, DR EARLY Attending Unavailable KACEYY, DR GOLD Primary Care Unavailable KARASIK, DR EARLY Consulting Unavailable Unavailable Primary Care Provider Unavailabl e GONZALES CUTLER Attending Unavailable GONZALES CUTLER Attending Unavailable GONZALES CUTLER Attending Unavailable GONZALES CUTLER Attending Unavailable Medications Current Medications Medication Drug Class(es) Dates Sig (Normalized) Sig (Original) loratadine 10 mg disintegrating oral tablet (1 source) take 1 tablet by mouth in the morning loratadine (Claritin Reditabs) 10 MG disintegrating tablet Take 10 mg by mouth in the morning. 0 Active ondansetron 4 mg disintegrating oral tablet (1 source) Serotonin-3 Receptor Antagonist Start: 12-09-2023 End: 01-08-2024 take 1 tablet by mouth every six hours as needed for nausea and vomiting and nausea and nausea ondansetron ODT (Zofran-ODT) 4 MG disintegrating tablet Indications: Nausea Take 1 tablet (4 mg) by mouth every 6 (six) hours if needed for nausea or vomiting 30 tablet 2 12/09/2023 01/08/2024 Active Vahkmfak-Wye-Pe-FA ( 1 + IRON PO) (1 source) Egieqjgd-Lrs-Ft-FA ( 1 + IRON PO) Take 1 each by mouth in the morning. 0 Active Problems Active Problems Problem Classification Problem Date [...] [CONTACT W/AND (SUSP) EXPOS COVID-19] Onset: 01-15-2022 Unclassified (1 source) OB Reminders Onset: 12-09-2023 12-09-2023 Viral infection (1 source) COVID-19; Translations: [COVID-19] [...] IN RIGHT FOOT] Onset: 03-27-2022 Episodic Other and delivery including normal (1 source) Surrogate ; Translations: [ state, gestational carrier] Onset: 07-06-2023 07-06-2023 Episodic Other screening for suspected conditions (not [...] Test Name Value Interpretation Reference Range Facility ALL CBC WITH AUTO DIFFon BASOPHILS ABSOLUTE AUTO 0.0 [facility] Basophils/100 WBC (Bld) 0.3 % 0.2 - 2.0 % [facility] Eosinophils/100 WBC (Bld) 0.6 % Low 0.9 - 7.0 % [facility] Erythrocyte distribution width (RBC) [Ratio] 13.3 % 11.0 - 15.0 % [facility] Hematocrit (Bld) [Volume fraction] 36.6 % 36.0 - 48.0 % [facility] Hemoglobin (Bld) [Mass/Vol] 12.2 g/dL 12.0 - 16.0 g/dL [facility] IMMATURE GRANULOCYTES ABS AUTO 0.04 High [facility] Immature granulocytes/100 WBC (Bld) 0.5 % 0.0 - 0.5 % [facility] Interpretation and review of laboratory results Abnormal [facility] LYMPHOCYTES ABSOLUTE AUTO 2.0 [facility] Lymphocytes/100 WBC (Bld) 23.3 % 20.5 - 60.0 % [facility] MCH (RBC) [Entitic mass] 31.5 pg 26.7 - 34.0 pg [facility] MCHC (RBC) [Mass/Vol] 33.3 g/dL 29.9 - 35.2 g/dL [facility] MCV (RBC) [Entitic vol] 94.6 fL 81.0 - 99.0 fL [facility] MONOCYTES ABSOLUTE AUTO 0.5 [facility] Monocytes/100 WBC (Bld) 6.3 % 1.7 - 12.0 % [facility] NEUTROPHILS ABSOLUTE AUTO 6.0 [facility] Neutrophils/100 WBC (Bld) 69.0 % 43.0 - 75.0 % [facility] Platelet mean volume (Bld) [Entitic vol] 11.3 fL 9.5 - 13.5 fL [facility] TBH EO # 0.1 [facility] TBH PLT 208 [facility] TB RBC 3.87 Low [facility] WBC 8.6 [facility] CHLAMYDIA/GONOCOCCUS BACILIO (SW AB/URINE/PAPon 11-07-2022 Chlamydia trachomatis, BACILIO Negative Normal Negative [facility] Comment on above: Performed By: #### L IPID, CMP, T7, BNP, TSH #### [facility] [address] [place], [place] [address] Dr. David Das Neisseria gonorrhoeae, BACILIO Negative Normal Negative [facility] Comment on above: Performed By: #### L IPID, CMP, T7, BNP, TSH #### [facility] [address] [place], [place] [address] Dr. David Das US PELVIS AND TRANSVAGon [...] SONIA CHEN Date: 2022-11-06 17:13 Normal [facility] VAGINITIS/VAGINOSIS DNA PROB Farhan 11-06-2022 Angelia species Negative Normal Negative [facility] Comment on above: Performed By: #### V AGINT #### [facility] [address] [place] [address] Dr. David Das Gardnerella vaginalis Negative Normal Negative [facility] Comment on above: Performed By: #### V AGINT #### [facility] [address] [place] [address] Dr. David Das Trichomonas vaginalis Negative Normal Negative [facility] Comment on above: Performed By: #### V AGINT #### [facility] [address] [place] [address] Dr. David Das INSULINon 11-04-2022 Insulin 17.4 uIU/mL Normal 2.6-24.9 [facility] Comment on above: Performed By: #### I NSULIN #### [facility] [address] [place] [address] Dr. David Das CBC AUTO DIFFon 11-03-2022 BASO # 0.0 103/ul Normal 0.0-0.1 [facility] Comment on above: Performed By: #### L IPID, CMP, T7, BNP, TSH #### [facility] [address] [place] [address] Dr. David Das Basophils/100 WBC (Bld) 0.4 % Normal 0.2-2.0 [facility] Comment on above: Performed By: #### L IPID, CMP, T7, BNP, TSH #### [facility] [address] [place] [address] Dr. David Das EO # 0.1 103/ul Normal 0.0-0.7 [facility] Comment on above: Performed By: #### L IPID, CMP, T7, BNP, TSH #### [facility] [address] [place] [address] [address] David Das Eosinophils/100 WBC (Bld) 1.4 % Normal 0.9-7.0 [facility] Comment on above: Performed By: #### L IPID, CMP, T7, BNP, TSH #### [facility] [address] [place] [address] Dr. David Das Erythrocyte distribution width (RBC) [Ratio] 12.4 % Normal 11.0-15.0 [facility] Comment on above: Performed By: #### L IPID, CMP, T7, BNP, TSH #### [facility] [address] [place] [address] Dr. David Das Hematocrit (Bld) [Volume fraction] 43.8 % Normal 36.0-48.0 [facility] Comment on above: Performed By: #### L IPID, CMP, T7, BNP, TSH #### [facility] [address] [place] [address] Dr. David Das Hemoglobin (Bld) [Mass/Vol] 14.6 g/dL Normal 12.0-16.0 [facility] Comment on above: Performed By: #### L IPID, CMP, T7, BNP, TSH #### [facility] [address] [place] [address] Dr. David Das IG # 0.01 10e3/ul Normal 0.00-0.03 [facility] Comment on above: Performed By: #### L IPID, CMP, T7, BNP, TSH #### [facility] [address] [place] [address] Dr. David Das IG % 0.2 % Normal 0.0-0.5 [facility] Comment on above: Performed By: #### L IPID, CMP, T7, BNP, TSH #### [facility] [address] [place] [address] Dr. David Das LYMPH # 1.8 103/ul Normal 1.2-3.8 [facility] Comment on above: Performed By: #### L IPID, CMP, T7, BNP, TSH #### [facility] [address] [place] [address] Dr. David Das Lymphocytes/100 WBC (Bld) 33.3 % Normal 20.5-60.0 [facility] Comment on above: Performed By: #### L IPID, CMP, T7, BNP, TSH #### [facility] [address] [place] [address] Dr. David Das MANUAL DIFF REQ NO Normal [facility] Comment on above: Performed By: #### L IPID, CMP, T7, BNP, TSH #### [facility] [address] [place] [address] Dr. David Das MCH (RBC) [Entitic mass] 30.7 pg Normal 26.7-34.0 [facility] Comment on above: Performed By: #### L IPID, CMP, T7, BNP, TSH #### [facility] [address] [place] [address] Dr. David Das MCHC (RBC) [Mass/Vol] 33.3 g/dL Normal 29.9-35.2 [facility] Comment on above: Performed By: #### L IPID, CMP, T7, BNP, TSH #### [facility] [address] [place] [address] Dr. David Das MCV (RBC) [Entitic vol] 92.0 fL Normal 81.0-99.0 [facility] Comment on above: Performed By: #### L IPID, CMP, T7, BNP, TSH #### [facility] [address] [place] [address] Dr. David Das MONO # 0.4 103/ul Normal 0.3-0.8 [facility] Comment on above: Performed By: #### L IPID, CMP, T7, BNP, TSH #### [facility] [address] [place] [address] [address] David Das Monocytes/100 WBC (Bld) 7.6 % Normal 1.7-12.0 [facility] Comment on above: Performed By: #### L IPID, CMP, T7, BNP, TSH #### [facility] [address] [place] [address] Dr. David Das NEUT # 3.2 103/ul Normal 1.4-6.5 [facility] Comment on above: Performed By: #### L IPID, CMP, T7, BNP, TSH #### [facility] [address] [place] [address] Dr. David Das Neutrophils/100 WBC (Bld) 57.1 % Normal 43.0-75.0 [facility] Comment on above: Performed By: #### L IPID, CMP, T7, BNP, TSH #### [facility] [address] [place] [address] Dr. David Das Platelet mean volume (Bld) [Entitic vol] 10.5 fL Normal 9.5-13.5 [facility] Comment on above: Performed By: #### L IPID, CMP, T7, BNP, TSH #### [facility] [address] [place] [address] Dr. David Das PLT 200 103/ul Normal 150-450 [facility] Comment on above: Performed By: #### L IPID, CMP, T7, BNP, TSH #### [facility] [address] [place] [address] Dr. David Das RBC 4.76 106/ul Normal 4.20-5.40 [facility] Comment on above: Performed By: #### L IPID, CMP, T7, BNP, TSH #### [facility] [address] [place] [address] Dr. David Das WBC 5.5 103/ul Normal 4.0-11.0 [facility] Comment on above: Performed By: #### L IPID, CMP, T7, BNP, TSH #### [facility] [address] [place] [address] [address] David Das FREE THYROXINE INDEX T7on FTI 2.38 Normal 1.30-4.50 [facility] Comment on above: Performed By: #### L IPID, CMP, T7, BNP, TSH #### [facility] [address] [place] [address] [address] David Das T3U 33.0 % Normal 30.0-39.0 [facility] Comment on above: Performed By: #### L IPID, CMP, T7, BNP, TSH #### [facility] [address] [place] [address] Dr. David Das T4 [Mass/Vol] 7.20 ug/dL Normal 4.80-13.90 [facility] Comment on above: Performed By: #### L IPID, CMP, T7, BNP, TSH #### [facility] [address] [place] [address] Dr. David Das GLYCOHEMOGLOBIN A1Con 2021 ADA RECOMMENDATION SEE BELOW Normal [facility] Comment on above: Result Comment: ADA RECOMMENDED LIMIT 4.0 - 6.0 ADA THERAPEUTIC TARGET < 7.0 ACTION SUGGESTED > 7.0 Performed By: #### L IPID, CMP, T7, BNP, TSH #### [facility] [address] [place] [address] Dr. David Das Glucose [Mass/Vol] 103 mg/dL Normal [facility] Comment on above: Performed By: #### L IPID, CMP, T7, BNP, TSH #### [facility] [address] [place] [address] Dr. David Das HbA1c (Bld) [Mass fraction] 5.2 % Normal 4.5-6.2 [facility] Comment on above: Performed By: #### L IPID, CMP, T7, BNP, TSH #### [facility] [address] [place] [address] Dr. David Das IRONon 11-03-2022 Iron [Mass/Vol] 117.0 ug/dL Normal 50.0-170.0 [facility] Comment on above: Performed By: #### L IPID, CMP, T7, BNP, TSH #### [facility] [address] [place] [address] [address] David Das LIPID PROFILEon 11-03-2022 CHOL-HDL RATIO NORM SEE BELOW Normal [facility] Comment on above: Result Comment: 3.3 - 4.4 LOW RISK 4.4 - 7.1 AVERAGE RISK 7.1 - 11.0 MODERATE RISK >11.0 HIGH RISK Performed By: #### L IPID, CMP, T7, BNP, TSH #### [facility] [address] [place] [address] [address] David Das Cholesterol [Mass/Vol] 120 mg/dL Normal <=200 [facility] Comment on above: Performed By: #### L IPID, CMP, T7, BNP, TSH #### [facility] [address] [place] [address] [address] David Das Cholesterol in HDL [Mass/Vol] 54 mg/dL Normal 40-60 [facility] Comment on above: Performed By: #### L IPID, CMP, T7, BNP, TSH #### [facility] [address] [place] [address] [address] David Das Cholesterol in LDL [Mass/Vol] 56.8 mg/dL Normal [facility] Comment on above: Performed By: #### L IPID, CMP, T7, BNP, TSH #### [facility] [address] [place] [address] [address] David Das Cholesterol.total/Ch olesterol in HDL [Mass ratio] 2.2 {ratio} Normal [facility] Comment on above: Performed By: #### L IPID, CMP, T7, BNP, TSH #### [facility] [address] [place] [address] Dr. David Das HDL NORMAL > or = 60 mg/dl - LOW CARDIOVASCULAR RISK <40 mg/dl - HIGH CARDIOVASCULAR RISK Normal [facility] Comment on above: Performed By: #### L IPID, CMP, T7, BNP, TSH #### [facility] [address] [place] [address] [address] David Das LDL CALC NORMAL SEE BELOW Normal [facility] Comment on above: Result Comment: <100 mg/dl OPTIMAL 100 - 129 mg/dl NEAR OR ABOVE OPTIMAL 130 - 159 mg/dl BORDERLINE HIGH 160 - 189 mg/dl HIGH >190 mg/dl VERY HIGH Performed By: #### L IPID, CMP, T7, BNP, TSH #### [facility] [address] [place] [address] [address] David Das Triglyceride [Mass/Vol] 46 mg/dL Normal <=150 [facility] Comment on above: Performed By: #### L IPID, CMP, T7, BNP, TSH #### [facility] [address] [place] [address] [address] David Das VLDL CALC 9.2 mg/dL Normal [facility] Comment on above: Performed By: #### L IPID, CMP, T7, BNP, TSH #### [facility] [address] [place] [address] [address] David Das PROF 14(COMP METB)on 022 Albumin [Mass/Vol] 4.1 g/dL Normal 3.4-5.0 [facility] Comment on above: Performed By: #### L IPID, CMP, T7, BNP, TSH #### [facility] [address] [place] [address] [address] David Das Albumin/Globulin [Mass ratio] 1.2 {ratio} Normal [facility] Comment on above: Performed By: #### L IPID, CMP, T7, BNP, TSH #### [facility] [address] [place] [address] [address] David Das ALP [Catalytic activity/Vol] 50 U/L Normal 46-116 [facility] Comment on above: Performed By: #### L IPID, CMP, T7, BNP, TSH #### [facility] [address] [place] [address] [address] David Dsa ALT [Catalytic activity/Vol] 15 U/L Normal 14-59 [facility] Comment on above: Performed By: #### L IPID, CMP, T7, BNP, TSH #### [facility] [address] [place] [address] [address] David Das Anion gap [Moles/Vol] 11.0 mmol/L Normal [facility] Comment on above: Performed By: #### L IPID, CMP, T7, BNP, TSH #### [facility] [address] [place] [address] [address] David aDs AST [Catalytic activity/Vol] 16 U/L Normal 15-37 [facility] Comment on above: Performed By: #### L IPID, CMP, T7, BNP, TSH #### [facility] [address] [place] [address] Dr. David Das Bilirubin [Mass/Vol] 0.5 mg/dL Normal 0.2-1.0 [facility] Comment on above: Performed By: #### L IPID, CMP, T7, BNP, TSH #### [facility] [address] [place] [address] [address] David Das Calcium [Mass/Vol] 8.7 mg/dL Normal 8.5-10.1 [facility] Comment on above: Performed By: #### L IPID, CMP, T7, BNP, TSH #### [facility] [address] [place] [address] Dr. David Das Chloride [Moles/Vol] 104 mmol/L Normal 98-107 [facility] Comment on above: Performed By: #### L IPID, CMP, T7, BNP, TSH #### [facility] [address] [place] [address] Dr. David Das CO2 [Moles/Vol] 31.4 mmol/L Normal 21.0-32.0 [facility] Comment on above: Performed By: #### L IPID, CMP, T7, BNP, TSH #### [facility] [address] [place] [address] Dr. David Das Creatinine [Mass/Vol] 0.64 mg/dL Normal 0.55-1.02 [facility] Comment on above: Performed By: #### L IPID, CMP, T7, BNP, TSH #### [facility] [address] [place] [address] [address] David Das EGFR-AF CITIZEN OF [place] >60 Normal >=60 [facility] Comment on above: Performed By: #### L IPID, CMP, T7, BNP, TSH #### [facility] [address] [place] [address] [address] David Das EGFR-NON AF CITIZEN OF [place] >60 Normal >=60 [facility] Comment on above: Performed By: #### L IPID, CMP, T7, BNP, TSH #### [facility] [address] [place] [address] [address] David Das Globulin (S) [Mass/Vol] 3.4 g/dL Normal [facility] Comment on above: Performed By: #### L IPID, CMP, T7, BNP, TSH #### [facility] [address] [place] [address] [address] David Das Glucose [Mass/Vol] 92 mg/dL Normal 74-106 [facility] Comment on above: Performed By: #### L IPID, CMP, T7, BNP, TSH #### [facility] [address] [place] [address] [address] David Das Potassium [Moles/Vol] 4.4 mmol/L Normal 3.5-5.1 [facility] Comment on above: Performed By: #### L IPID, CMP, T7, BNP, TSH #### [facility] [address] [place] [address] [address] David Das Protein [Mass/Vol] 7.5 g/dL Normal 6.4-8.2 [facility] Comment on above: Performed By: #### L IPID, CMP, T7, BNP, TSH #### [facility] [address] [place] [address] Dr. David Das Sodium [Moles/Vol] 142 mmol/L Normal 136-145 [facility] Comment on above: Performed By: #### L IPID, CMP, T7, BNP, TSH #### [facility] [address] [place] [address] [address] David Das Urea nitrogen [Mass/Vol] 11.0 mg/dL Normal 7.0-18.0 [facility] Comment on above: Performed By: #### L IPID, CMP, T7, BNP, TSH #### [facility] [address] [place] [address] [address] David Das Urea nitrogen/Creatinine [Mass ratio] 17.2 mg/mg Normal [facility] Comment on above: Performed By: #### L IPID, CMP, T7, BNP, TSH #### [facility] [address] [place] [address] [address] David Das TSHon 11-03-2022 TSH 1.923 uIU/mL Normal 0.358-3.740 [facility] Comment on above: Performed By: #### L IPID, CMP, T7, BNP, TSH #### [facility] [address] [place] [address] [address] David Das Covid-19 PCR (CVDTBH)on 05-17 SARS-CoV-2 (COVID-19) RNA BACILIO+probe Ql (Unsp spec) Detected Critically abnormal NOT DETECTED [facility] Comment on above: Result Comment: This test is not yet approved or cleared by the [place] FDA. When there are no FDA-approved or cleared tests available, and other criteria are met, FDA can make tests available under an emergency access mechanism called an Emergency Use Authorization (EUA). The EUA for this test is supported by the [place] of Health and Human Service's declaration that [...] used). Performed By: #### C VDTBH #### [facility] [address] [place] [address] Dr. David Das PAP ACOG PANEL 2: 21 to 29on 05-23-2022 . . Normal [facility] Comment on above: Performed By: #### L IPID, CMP, T7, BNP, TSH #### [facility] [address] [place] [address] [address] David Das Age Gdln ACOG Testing 21-29 Normal [facility] Comment on above: Performed By: #### L IPID, CMP, T7, BNP, TSH #### [facility] [address] [place] [address] [address] David Das DIAGNOSIS: Comment Normal [facility] Comment on above: Result Comment: NEGA TIVE FOR INTRAEPITHELIAL LESION OR MALIGNANCY. Performed By: #### L IPID, CMP, T7, BNP, TSH #### [facility] [address] [place] [address] [address] David Das Methodology: Comment Normal [facility] Comment on above: Result Comment: This liquid based ThinPrep(R) pap test was screened with the use of an image guided system. Performed By: #### L IPID, CMP, T7, BNP, TSH #### [facility] [address] [place] [address] [address] David Das Note: Comment [facility] Comment on above: Result Comment: The Pap [...] L IPID, CMP, T7, BNP, TSH #### [facility] [address] [place] [address] [address] David Das Performed by: Comment Normal [facility] Comment on above: Result Comment: Cayla Jay, Beamer Operator (ASCP) Performed By: #### L IPID, CMP, T7, BNP, TSH #### [facility] [address] [address] [address] David Das Reflex Criteria: Comment Normal [facility] Comment on above: Result Comment: The HPV DNA reflex criteria were not met with this specimen result therefore, no HPV testing was performed. . Performed By: #### L IPID, CMP, T7, BNP, TSH #### [facility] [address] [place], [place] [address] Dr. David Das Specimen adequacy: Comment Normal [facility] Comment on above: Result Comment: Sati sfactory for evaluation. Endocervical and/or squamous metaplastic cells (endocervical component) are present. Areas of partially obscuring inflammatory exudate are present. Performed By: #### L IPID, CMP, T7, BNP, TSH #### [facility] [address] [place], [place] [address] Dr. David Das XR FOOT RT MIN 3 VIEWSon XR FOOT RT MIN 3 VIEWS IMAGES REVIEWED: XR FOOT RT MIN 3 VIEWS COMPARISON: None available. CLINICAL INDICATION: Pain, no injury. FINDINGS/IMPRESSION: Unremarkable radiographic appearance of the right foot. Electronically authenticated by: VIVIEN NOONAN Date: 2022-03-27 20:26 Normal [facility] Pathology Noteon 02-24-2022 Pathology Note [id number] #[id number] Normal [facility] Ambulatory Visit Summaryon 0 02-19-2022 Ambulatory Visit Summary ABEL ROBISON Trae :1995 Visit Date:02/19/2022 Ambulatory Visit Instructions Your Diagnosis Changing nevus Your Care Team Attending Physician - CHAMP FUENTES, Marleni Keen Primary Care Physician - Alla Beatty MD This Is Your Medications List ethinyl estradiol-norgestima te (Ortho Tri-Cyclen) Procedures Performed EGD - Esophagogastroduoden oscopy, Tonsillectomy. Medications What How Much When Instructions Unchanged ethinyl estradiol-norgestima te (Ortho Tri-Cyclen) 1 Tablets By Mouth Every day Allergies No Known Allergies No Known Medication Allergies Problems Ongoing - Any problem that you are currently receiving treatment for. Asthma BMI 26.0-26.9,adult Changing nevus IBS (irritable bowel syndrome) Orthostatic hypotension Scoliosis Normal [facility] General Surgery Office/Clini c Noteon 02-19-2022 General [...] No qualifying data Procedure/Surgical History EGD - Esophagogastroduoden oscopy, Tonsillectomy. Medications Ortho Tri-Cyclen, 1 tab(s), Oral, [...] influenza virus vaccine, inactivated 07/2021 Recorded Normal [facility] Comment on above: Result Comment: Elec tronically Signed By: CHAMP FUENTES, Marleni Fletcher\Date and Time Signed: 02/19/22 17:00 EDT Facesheeton 02-12-2022 Facesheet [id number] #1.00CD:127 Normal [facility] BNPon 02-01-2022 Natriuretic peptide B (Bld) [Mass/Vol] 64.0 pg/mL Normal <=450.0 [facility] Comment on above: Performed By: #### L IPID, CMP, T7, BNP, TSH #### [facility] [address] [place] [address] Dr. David Das CBC AUTO DIFFon 02-01-2022 BASO # 0.0 103/ul Normal 0.0-0.1 [facility] Comment on above: Performed By: #### L IPID, CMP, T7, BNP, TSH #### [facility] [address] [address] [address] David Das Basophils/100 WBC (Bld) 0.4 % Normal 0.2-2.0 [facility] Comment on above: Performed By: #### L IPID, CMP, T7, BNP, TSH #### [facility] [address] [place] [address] Dr. David Das EO # 0.1 103/ul Normal 0.0-0.7 [facility] Comment on above: Performed By: #### L IPID, CMP, T7, BNP, TSH #### [facility] [address] [place] [address] Dr. David Das Eosinophils/100 WBC (Bld) 1.8 % Normal 0.9-7.0 [facility] Comment on above: Performed By: #### L IPID, CMP, T7, BNP, TSH #### [facility] [address] [place] [address] Dr. David Das Erythrocyte distribution width (RBC) [Ratio] 12.5 % Normal 11.0-15.0 [facility] Comment on above: Performed By: #### L IPID, CMP, T7, BNP, TSH #### [facility] [address] [place] [address] Dr. David Das Hematocrit (Bld) [Volume fraction] 43.6 % Normal 36.0-48.0 [facility] Comment on above: Performed By: #### L IPID, CMP, T7, BNP, TSH #### [facility] [address] [place] [address] Dr. David Das Hemoglobin (Bld) [Mass/Vol] 14.2 g/dL Normal 12.0-16.0 [facility] Comment on above: Performed By: #### L IPID, CMP, T7, BNP, TSH #### [facility] [address] [place] [address] Dr. David Das IG # 0.01 10e3/ul Normal 0.00-0.03 [facility] Comment on above: Performed By: #### L IPID, CMP, T7, BNP, TSH #### [facility] [address] [place] [address] Dr. David Das IG % 0.2 % Normal 0.0-0.5 [facility] Comment on above: Performed By: #### L IPID, CMP, T7, BNP, TSH #### [facility] [address] [place] [address] Dr. David Das LYMPH # 1.8 103/ul Normal 1.2-3.8 [facility] Comment on above: Performed By: #### L IPID, CMP, T7, BNP, TSH #### [facility] [address] [address] [address] David Das Lymphocytes/100 WBC (Bld) 32.0 % Normal 20.5-60.0 [facility] Comment on above: Performed By: #### L IPID, CMP, T7, BNP, TSH #### [facility] [address] [place] [address] Dr. David Das MANUAL DIFF REQ NO Normal [facility] Comment on above: Performed By: #### L IPID, CMP, T7, BNP, TSH #### [facility] [address] [place] [address] Dr. David Das MCH (RBC) [Entitic mass] 30.8 pg Normal 26.7-34.0 [facility] Comment on above: Performed By: #### L IPID, CMP, T7, BNP, TSH #### [facility] [address] [place] [address] Dr. David Das MCHC (RBC) [Mass/Vol] 32.6 g/dL Normal 29.9-35.2 [facility] Comment on above: Performed By: #### L IPID, CMP, T7, BNP, TSH #### [facility] [address] [place] [address] Dr. David Das MCV (RBC) [Entitic vol] 94.6 fL Normal 81.0-99.0 [facility] Comment on above: Performed By: #### L IPID, CMP, T7, BNP, TSH #### [facility] [address] [place] [address] Dr. David Das MONO # 0.4 103/ul Normal 0.3-0.8 [facility] Comment on above: Performed By: #### L IPID, CMP, T7, BNP, TSH #### [facility] [address] [place] [address] Dr. David Das Monocytes/100 WBC (Bld) 6.5 % Normal 1.7-12.0 [facility] Comment on above: Performed By: #### L IPID, CMP, T7, BNP, TSH #### [facility] [address] [place] [address] Dr. David Das NEUT # 3.3 103/ul Normal 1.4-6.5 [facility] Comment on above: Performed By: #### L IPID, CMP, T7, BNP, TSH #### [facility] [address] [place] [address] Dr. David Das Neutrophils/100 WBC (Bld) 59.1 % Normal 43.0-75.0 [facility] Comment on above: Performed By: #### L IPID, CMP, T7, BNP, TSH #### [facility] [address] [place] [address] Dr. David Das Platelet mean volume (Bld) [Entitic vol] 10.5 fL Normal 9.5-13.5 [facility] Comment on above: Performed By: #### L IPID, CMP, T7, BNP, TSH #### [facility] [address] [place] [address] Dr. David Das PLT 195 103/ul Normal 150-450 [facility] Comment on above: Performed By: #### L IPID, CMP, T7, BNP, TSH #### [facility] [address] [place] [address] Dr. David Das RBC 4.61 106/ul Normal 4.20-5.40 [facility] Comment on above: Performed By: #### L IPID, CMP, T7, BNP, TSH #### [facility] [address] [place] [address] Dr. David Das WBC 5.7 103/ul Normal 4.0-11.0 [facility] Comment on above: Performed By: #### L IPID, CMP, T7, BNP, TSH #### [facility] [address] [place] [address] Dr. David Das FREE THYROXINE INDEX T7on FTI 2.41 Normal [facility] Comment on above: Performed By: #### L IPID, CMP, T7, BNP, TSH #### [facility] [address] [address] [address] David Das T3U 33.0 % Normal 23.5-40.5 [facility] Comment on above: Performed By: #### L IPID, CMP, T7, BNP, TSH #### [facility] [address] [address] [address] David Das T4 [Mass/Vol] 7.30 ug/dL Normal 5.53-11.00 [facility] Comment on above: Performed By: #### L IPID, CMP, T7, BNP, TSH #### [facility] [address] [address] [address] David Das GLYCOHEMOGLOBIN A1Con 2021 ADA RECOMMENDATION ADA THERAPEUTIC TARGET 6.0 - 7.0 ACTION SUGGESTED > 7.0 Normal [facility] Comment on above: Performed By: #### A 1C #### [facility] [address] [address] [address] David Das Glucose [Mass/Vol] 100 mg/dL Normal [facility] Comment on above: Performed By: #### A 1C #### [facility] [address] [address] [address] David Das HbA1c (Bld) [Mass fraction] 5.1 % Normal <=6.0 [facility] Comment on above: Performed By: #### A 1C #### [facility] [address] [address] [address] David Das IRONon 02-01-2022 Iron [Mass/Vol] 101.0 ug/dL Normal 37.0-170.0 [facility] Comment on above: Performed By: #### L IPID, CMP, T7, BNP, TSH #### [facility] [address] [place] [address] Dr. David Das LIPID PROFILEon 02-01-2022 CHOL-HDL RATIO NORM SEE BELOW Normal [facility] Comment on above: Result Comment: 3.3 - 4.4 LOW RISK 4.4 - 7.1 AVERAGE RISK 7.1 - 11.0 MODERATE RISK >11.0 HIGH RISK Performed By: #### L IPID, CMP, T7, BNP, TSH #### [facility] [address] [place] [address] Dr. David Das Cholesterol [Mass/Vol] 123 mg/dL Normal <=200 [facility] Comment on above: Performed By: #### L IPID, CMP, T7, BNP, TSH #### [facility] [address] [address] [address] David Das Cholesterol in HDL [Mass/Vol] 44 mg/dL Normal 40-60 [facility] Comment on above: Performed By: #### L IPID, CMP, T7, BNP, TSH #### [facility] [address] [place] [address] Dr. David Das Cholesterol in LDL [Mass/Vol] 63.2 mg/dL Normal [facility] Comment on above: Performed By: #### L IPID, CMP, T7, BNP, TSH #### [facility] [address] [place] [address] Dr. David Das Cholesterol.total/Ch olesterol in HDL [Mass ratio] 2.8 {ratio} Normal [facility] Comment on above: Performed By: #### L IPID, CMP, T7, BNP, TSH #### [facility] [address] [address] [address] David Das HDL NORMAL > or = 60 mg/dl - LOW CARDIOVASCULAR RISK <40 mg/dl - HIGH CARDIOVASCULAR RISK Normal [facility] Comment on above: Performed By: #### L IPID, CMP, T7, BNP, TSH #### [facility] [address] [place] [address] Dr. David Das LDL CALC NORMAL SEE BELOW Normal [facility] Comment on above: Result Comment: <100 mg/dl OPTIMAL 100 - 129 mg/dl NEAR OR ABOVE OPTIMAL 130 - 159 mg/dl BORDERLINE HIGH 160 - 189 mg/dl HIGH >190 mg/dl VERY HIGH Performed By: #### L IPID, CMP, T7, BNP, TSH #### [facility] [address] [place] [address] Dr. David Das Triglyceride [Mass/Vol] 79 mg/dL Normal <=150 [facility] Comment on above: Performed By: #### L IPID, CMP, T7, BNP, TSH #### [facility] [address] [address] [address] David Das VLDL CALC 15.8 mg/dL Normal [facility] Comment on above: Performed By: #### L IPID, CMP, T7, BNP, TSH #### [facility] [address] [address] [address] David Das PROF 14(COMP METB)on 022 Albumin [Mass/Vol] 3.9 g/dL Normal 3.4-5.0 [facility] Comment on above: Performed By: #### L IPID, CMP, T7, BNP, TSH #### [facility] [address] [address] [address] David Das Albumin/Globulin [Mass ratio] 1.2 {ratio} Normal [facility] Comment on above: Performed By: #### L IPID, CMP, T7, BNP, TSH #### [facility] [address] [address] [address] David Das ALP [Catalytic activity/Vol] 49 U/L Normal 46-116 [facility] Comment on above: Performed By: #### L IPID, CMP, T7, BNP, TSH #### [facility] [address] [address] [address] David Das ALT [Catalytic activity/Vol] 13 U/L Critically low 14-59 [facility] Comment on above: Performed By: #### L IPID, CMP, T7, BNP, TSH #### [facility] [address] [address] [address] David Das Anion gap [Moles/Vol] 12.6 mmol/L Normal [facility] Comment on above: Performed By: #### L IPID, CMP, T7, BNP, TSH #### [facility] [address] [address] [address] David Das AST [Catalytic activity/Vol] 10 U/L Critically low 15-37 [facility] Comment on above: Performed By: #### L IPID, CMP, T7, BNP, TSH #### [facility] [address] [address] [address] David Das Bilirubin [Mass/Vol] 0.4 mg/dL Normal 0.2-1.3 [facility] Comment on above: Performed By: #### L IPID, CMP, T7, BNP, TSH #### [facility] [address] [address] [address] David Das Calcium [Mass/Vol] 8.7 mg/dL Normal 8.5-10.1 [facility] Comment on above: Performed By: #### L IPID, CMP, T7, BNP, TSH #### [facility] [address] [place] [address] Dr. David Das Chloride [Moles/Vol] 106 mmol/L Normal 98-107 [facility] Comment on above: Performed By: #### L IPID, CMP, T7, BNP, TSH #### [facility] [address] [address] [address] David Das CO2 [Moles/Vol] 27.9 mmol/L Normal 22.0-30.0 [facility] Comment on above: Performed By: #### L IPID, CMP, T7, BNP, TSH #### [facility] [address] [place] [address] Dr. David Das Creatinine [Mass/Vol] 0.69 mg/dL Normal 0.52-1.04 [facility] Comment on above: Performed By: #### L IPID, CMP, T7, BNP, TSH #### [facility] [address] [address] [address] David Das EGFR-AF CITIZEN OF [place] >60 Normal >=60 [facility] Comment on above: Performed By: #### L IPID, CMP, T7, BNP, TSH #### [facility] [address] [place] [address] Dr. David Das EGFR-NON AF CITIZEN OF [place] >60 Normal >=60 [facility] Comment on above: Performed By: #### L IPID, CMP, T7, BNP, TSH #### [facility] [address] [place] [address] Dr. David Das Globulin (S) [Mass/Vol] 3.2 g/dL Normal [facility] Comment on above: Performed By: #### L IPID, CMP, T7, BNP, TSH #### [facility] [address] [place] [address] Dr. David Das Glucose [Mass/Vol] 104 mg/dL Normal 74-106 [facility] Comment on above: Performed By: #### L IPID, CMP, T7, BNP, TSH #### [facility] [address] [place] [address] Dr. David Das Potassium [Moles/Vol] 4.5 mmol/L Normal 3.4-5.0 [facility] Comment on above: Performed By: #### L IPID, CMP, T7, BNP, TSH #### [facility] [address] [place] [address] Dr. David Das Protein [Mass/Vol] 7.1 g/dL Normal 6.1-8.2 [facility] Comment on above: Performed By: #### L IPID, CMP, T7, BNP, TSH #### [facility] [address] [place] [address] Dr. David Das Sodium [Moles/Vol] 142 mmol/L Normal 137-145 [facility] Comment on above: Performed By: #### L IPID, CMP, T7, BNP, TSH #### [facility] [address] [place] [address] Dr. David Das Urea nitrogen [Mass/Vol] 12.0 mg/dL Normal 7.0-18.0 [facility] Comment on above: Performed By: #### L IPID, CMP, T7, BNP, TSH #### [facility] [address] [place] [address] Dr. David Das Urea nitrogen/Creatinine [Mass ratio] 17.4 mg/mg Normal [facility] Comment on above: Performed By: #### L IPID, CMP, T7, BNP, TSH #### [facility] [address] [place], [place] [address] Dr. David Das TSHon 02-01-2022 TSH 1.718 uIU/mL Normal 0.470-4.680 [facility] Comment on above: Performed By: #### L IPID, CMP, T7, BNP, TSH #### [facility] [address] [address] [address] David Das TSH RANGE SEE BELOW Normal [facility] Comment on above: Result Comment: <0.3 4 UIU/ml HYPERTHYROID 0.34-5.60 UIU/ml EUTHYROID >5.60 UIU/ml HYPOTHYROID Performed By: #### L IPID, CMP, T7, BNP, TSH #### [facility] [address] [address] [address] David Das Physician Referralon 022 Physician Referral [id number] #1.00CD:127 Normal [facility] Covid-19 PCR (CVDTBH)on 12-18 SARS-CoV-2 (COVID-19) RNA BACILIO+probe Ql (Unsp spec) Not detected Normal NOT DETECTED [facility] Comment on above: Result Comment: This test is not yet approved or cleared by the [place] FDA. When there are no FDA-approved or cleared tests available, and other criteria are met, FDA can make tests available under an emergency access mechanism called an Emergency Use Authorization (EUA). The EUA for this test is supported by the [place] of Health and Human Service's (HHS's) declaration [...] SARS-CoV-2. Performed By: #### C VDTBH #### [facility] [address] [place] [address] Dr. David Das Encounters Encounter Date Encounter Type Care Provider Facility Start: 03-02-2024 End: 03-02-2024 ambulatory GONZALES OMAYRA Not Available Start: 02-03-2024 End: 02-03-2024 ambulatory GONZALES OMAYRA Not Available Start: 01-06-2024 End: 01-06-2024 ambulatory GONZALES OMAYRA Not Available Start: 12-28-2023 Clinisync Result Encounter Gonzales Omayra DO Work Phone: [facility] Unsolicited Start: 12-28-2023 Clinisync Result Encounter Gonzales Omayra DO Work Phone: [facility] Unsolicited Start: 12-09-2023 End: 12-09-2023 ambulatory GONZALES OMAYRA Not Available Start: 11-05-2022 End: 11-06-2022 ambulatory [...] End: 01-13-[address] ALLA BEATTY Facility:[facility] Procedures Date Procedure Procedure Detail Performing Clinician Start: 12-28-2023 ALL CBC WITH AUTO DIFF Gonzales Omayra DO Work Phone: Plan of Treatment Date Care Activity Detail Author Start: 01-06-2024 End: 01-06-2024 Patient encounter procedure 01/06/2024 2:10 PM EST Routine [facility] [address] [place] [address] Gonzales Cutler, [address] [place] [address] [facility] Start: 07-17-2023 Influenza vaccination Influenza Vacc ine (#1) [facility] Start: 2023 Screening for malign ant neoplasm of cervix [facility] Start: 2014 Screening for malign ant neoplasm of cervix Pap Smear [facility] Healthcare Immunizations Immunization Date Immunization Notes Care Provider Fa cility 08-03-2022 influenza virus vacc ine, unspecified formulation Gonzales Cutler DO Work Phone: [facility] Payers Date Payer Category Payer Unknown BCBS BCBS xxxxxx [id number] 2023-Present [phone] [address] [place] [address] [id number] 2023 Unknown [id number] 1993 Unknown [id number] 1993 Unknown [id number] [id number] 1993 Unknown [id number] [id number] 1993 Unknown [id number] 1993 Unknown [id number] 2.840.1.209246.3.579.2.593 1993 Unknown [id number] 2.840.1.273694.3.579.2.593 1993 Unknown [id number] 2.840.1.505991.3.579.2.593 1993 Unknown [id number] [id number] 1993 Unknown [id number] 2.16.840.1.493045.3.579.2.593 1993 Unknown [id number] 2.16.840.1.115514.3.579.2.9 1993 Unknown [id number] 2.16.840.1.706628.3.579.2.1259 1993 Unknown [id number] 2.16.840.1.050781.3.579.2.1259 1993 Unknown [id number] [id number] 1959 Self-pay 1959 Unknown [id number] 1959 Unknown [id number] 1959 Unknown [id number] 1959 Unknown [id number] Social History Date Type Detail Facility Start: 07-01-2023 Tobacco smoking stat [facility] Never smoked tobacco [facility] Start: 07-01-2023 History of Social function [facility] Start: 07-01-2023 Tobacco use panel [facility] Start: 09-28-2023 [facility] Start: 1995 Sex Assigned At Female [facility] Start: 05-08-2023 Gender identity Identifies as female gender (finding) [facility] Start: 05-08-2023 Sexual orientation Heterosexual (fin ding) [facility] Goals Date Patient Goal Desired Activity /State Personal health goal Clinical Note 02-13-2022 Note Date & Type [...] Status influenza virus vaccine, inactivated 07/2021 Recorded [facility] Comment on above: Result Comment: [...] section and content) DATE CREATED AUTHOR 02/25/2022 [facility] DATE CREATED AUTHOR AUTHOR'S ORGANIZ ATION 11/13/2022 [facility] DATE CREATED AUTHOR AUTHOR'S ORGANIZ ATION 03/03/2024 [facility] FOR RECORDS PERTAINING TO PATIENTS WHO ARE [...] BE BASED ON THE PRIMARY CLINICAL RECORDS. [employer] provides no warranty or guarantee of the accuracy or completeness of information in this document.
[2024-03-14 07:28] LABS: Glucose Fasting 77 mg/dL (<95)
[2024-03-14 09:23] LABS: Glucose 1 Hour 113 mg/dL (<180)
[2024-03-14 10:25] LABS: Glucose 2 Hour 105 mg/dL (<155)
[2024-03-14 11:14] LABS: Glucose 3 Hour 78 mg/dL (<140)
== END 2024-03-14 07:02 | disposition home or self-care (01) ==
LOC: LAB 07:01
PROVIDERS: Visit Provider Obstetrics & Gynecology
DX: R73.09 Other abnormal glucose (principal)
CPT/HCPCS: 36415; 82951; 82952

== ENCOUNTER 2024-04-04 10:49 | Outpatient (OUT) | payer BC, SELFPAY ==
--- NOTE | 2024-04-04 10:53 | US_ITS ---
The [address] [address] Patient Name: ABEL ROBISON MRN: [id number] date: 1995 Sex: F Assigned Patient Location: US Current Patient Location: US Accession/Order Number: [id number] Exam Date: 04/04/2024 11:04 Report Date: 04/04/2024 12:24 At the request of: GONZALES LEON Procedure: US OB growth EXAMINATION: US OB growth HISTORY: Surrogate Z33.3 COMPARISON: No relevant comparison available. FINDINGS: Heart Rate: 150.0 bpm Number: 1.0 Position: CEPHALIC Amniotic Fluid Volume: 12.2 cm Maximum Vertical Pocket: 4.8 cm BIOMETRY: BPD: 7.1 cm cm; 28 weeks 2 days; 18% HC: 27.1 cmcm; 29 weeks 4 days ; 31% AC: 24.3 cm cm; 28 weeks 4 days; 29% FL: 5.4 cm cm; 28 weeks 5 days; 28% EFW: 1267.5 grams; 26% FL/AC: 22.4 FL/BPD: 77.2 HC/AC: 1.1 OTHER: Small venous lopez noted within the placenta. GESTATIONAL AGE: Age by EDC: 29 weeks 0 days IBRAHIMA by EDC: 06/20/2024 Age by US: 20 weeks 6 days IBRAHIMA by US: 06/21/2024 US/US OB growth IMPRESSION: 1. Single live intrauterine with growth detailed above. Electronically authenticated by: SONIA CHEN Date: 04/04/2024 12:24
== END 2024-04-04 10:50 | disposition home or self-care (01) ==
LOC: US 10:49
PROVIDERS: Visit Provider Obstetrics & Gynecology
DX: Z33.3 Pregnant state, gestational carrier (principal); Z3A.20 20 weeks gestation of pregnancy
CPT/HCPCS: 76816

== ENCOUNTER 2024-05-03 07:03 | Outpatient (OUT) | payer BC, SELFPAY ==
--- NOTE | 2024-05-03 14:06 | US_ITS ---
[address] [address] Patient Name: ABEL ROBISON MRN: [id number] date: 1995 Sex: F Assigned Patient Location: US Current Patient Location: US Accession/Order Number: [id number] Exam Date: 05/03/2024 14:48 Report Date: 05/04/2024 06:58 At the request of: GONZALES LEON Procedure: US OB growth EXAMINATION: US OB growth HISTORY: Surrogate Z33.3 COMPARISON: Ultrasound OB growth 04/04/2024 FINDINGS: Heart Rate: 156 bpm Number: One Position: Cephalic Amniotic Fluid Volume: 8.7 cm (5th percentiles 8.3 cm) Maximum Vertical Pocket: 2.7 cm BIOMETRY: BPD: 7.9 cm, 31 weeks 4 days, 7.1% HC: 29.9cm; 33 weeks 1 day; 14% AC: 27.0 cm; 31 weeks 1 day; 6% FL: 6.1 cm; 31 weeks 6 days; 11% EFW: 8% FL/AC: 22.7 FL/BPD: 78.2 HC/AC: 1.1 GESTATIONAL AGE: Age by EDC: 33 weeks 1 day IBRAHIMA by EDC: 06/20/2024 Age by US: 32 weeks 0 days IBRAHIMA by US: 06/28/2024 US/US OB growth IMPRESSION: 1. Single live intrauterine with growth detailed above. 2. Amniotic fluid approaches oligohydramnios. 3. Abdominal circumference is at 6th percentile. Electronically authenticated by: SONIA CHEN Date: 05/04/2024 06:58
--- NOTE | 2024-05-03 14:06 | US_ITS ---
[address] [address] Patient Name: ABEL ROBISON MRN: [id number] date: 1995 Sex: F Assigned Patient Location: US Current Patient Location: LAB Accession/Order Number: [id number] Exam Date: 05/03/2024 14:48 Report Date: 05/04/2024 06:53 At the request of: GONZALES LEON Procedure: US OB BPP w non-stress EXAMINATION: US OB BPP w non-stress HISTORY: Surrogate Z33.3 COMPARISON: No relevant comparison available. TECHNIQUE: Ultrasound biophysical profile was performed in the radiology department. BREATHING MOVEMENTS: 2 GROSS BODY MOVEMENTS: 2 TONE: 2 QUALITATIVE AMNIOTIC FLUID VOLUME: 2 PRESENTATION: Cephalic HEART RATE: 156 bpm. AMNIOTIC FLUID VOLUME: 8.7 cm (deepest pocket 2.7 cm) (5th percentile is 8.3 cm) GESTATIONAL AGE: 33 weeks 1 day CONCLUSION: 1. Total biophysical profile score 8. 2. Borderline oligohydramnios. Electronically authenticated by: SONIA CHEN Date: 05/04/2024 06:53
[2024-05-03 14:11] VITALS: BP 106/73; PULSE 86
== END 2024-05-03 15:36 | disposition home or self-care (01) ==
LOC: US 07:03 → FBC 14:04
PROVIDERS: Visit Provider Obstetrics & Gynecology
DX: Z33.3 Pregnant state, gestational carrier (principal); Z3A.33 33 weeks gestation of pregnancy
CPT/HCPCS: 76816; 76818; 84443

== ENCOUNTER 2024-05-06 07:04 | Outpatient (OUT) | payer BC, SELFPAY ==
--- OUTSIDE RECORDS SUMMARY | 2024-05-06 07:08 | XMS_ITS | CCD ---
Author Organization [facility] CliniSyal Care Team Providers Care Machine Brush Maker Name Role Phone TARAS, DR EARLY Admitting Unavailable KARASILorie, DR EARLY Attending Unavailable HOY, DR GOLD [...] YAROSHMARLENI Consulting Unavailable SHAISTA, VIVIEN Consulting Unavailable HOY, DR GOLD Admitting Unavailable [...] EARLY Consulting Unavailable Unavailable Primary Care Provider UnavailGONZALES Soliz Attending Unavailable GONZALES CUTLER Attending Unavailable GONZALES CUTLER Attending Unavailable GONZALES CUTLER Attending Unavailable ANGELALEXIS DU Attending Unavailable GONZALES CUTLER Attending Unavailable GONZALES [...] vomiting 30 tablet 2 12/09/2023 01/08/2024 Active Djotixgg-Lmm-Uv-FA ( 1 + IRON PO) (1 source) Oqhljmsp-Gqj-Zh-FA ( 1 + IRON PO) Take 1 [...] WITH AUTO DIFFon BASOPHILS ABSOLUTE AUTO 0.0 [facility] Basophils/100 WBC (Bld) 0.3 % 0.2 - 2.0 % [facility] Eosinophils/100 WBC (Bld) 0.6 % Low 0.9 - 7.0 % [facility] Erythrocyte distribution width (RBC) [Ratio] 13.3 % 11.0 - 15.0 % [facility] Hematocrit (Bld) [Volume fraction] 36.6 % 36.0 - 48.0 % [facility] Hemoglobin (Bld) [Mass/Vol] 12.2 g/dL 12.0 - 16.0 g/dL [facility] IMMATURE GRANULOCYTES ABS AUTO 0.04 High [facility] Immature granulocytes/100 WBC (Bld) 0.5 % 0.0 - 0.5 % [facility] Interpretation and review of laboratory results Abnormal [facility] LYMPHOCYTES ABSOLUTE AUTO 2.0 [facility] Lymphocytes/100 WBC (Bld) 23.3 % 20.5 - 60.0 % [facility] MCH (RBC) [Entitic mass] 31.5 pg 26.7 - 34.0 pg [facility] MCHC (RBC) [Mass/Vol] 33.3 g/dL 29.9 - 35.2 g/dL [facility] MCV (RBC) [Entitic vol] 94.6 fL 81.0 - 99.0 fL [facility] MONOCYTES ABSOLUTE AUTO 0.5 [facility] Monocytes/100 WBC (Bld) 6.3 % 1.7 - 12.0 % [facility] NEUTROPHILS ABSOLUTE AUTO 6.0 [facility] Neutrophils/100 WBC (Bld) 69.0 % 43.0 - 75.0 % [facility] Platelet mean volume (Bld) [Entitic vol] 11.3 fL 9.5 - 13.5 fL [facility] TBH EO # 0.1 [facility] TB PLT 208 [facility] TB RBC 3.87 [facility] WBC 8.6 [facility] CHLAMYDIA/GONOCOCCUS BACILIO ( AB/URINE/PAPon 11-07-2022 Chlamydia trachomatis, BACILIO Negative Normal Negative [facility] Comment on above: Performed By: #### L IPID, CMP, T7, BNP, TSH #### [facility] [address] [place], [place] [address] Dr. David Das Neisseria gonorrhoeae, BACILIO Negative Normal Negative [facility] Comment on above: Performed By: #### L IPID, CMP, T7, BNP, TSH #### [facility] [address] [place], [place] [address] Dr. David Das US PELVIS AND TRANSVAGon [...] SONIA CHEN Date: 2022-11-06 17:13 Normal [facility] VAGINITIS/VAGINOSIS DNA PROB Farhan 11-06-2022 Angelia species Negative Normal Negative [facility] Comment on above: Performed By: #### V AGINT #### [facility] [address] [place] [address] Dr. David Das Gardnerella vaginalis Negative Normal Negative [facility] Comment on above: Performed By: #### V AGINT #### [facility] [address] [place] [address] [address] David Das Trichomonas vaginalis Negative Normal Negative [facility] Comment on above: Performed By: #### V AGINT #### [facility] [address] [place] [address] [address] David Das INSULINon 11-04-2022 Insulin 17.4 uIU/mL Normal 2.6-24.9 [facility] Comment on above: Performed By: #### I NSULIN #### [facility] [address] [place] [address] Dr. David Das CBC AUTO DIFFon 11-03-2022 BASO # 0.0 103/ul Normal 0.0-0.1 [facility] Comment on above: Performed By: #### L IPID, CMP, T7, BNP, TSH #### [facility] [address] [place] [address] Dr. Daivd Das Basophils/100 WBC (Bld) 0.4 % Normal 0.2-2.0 [facility] Comment on above: Performed By: #### L IPID, CMP, T7, BNP, TSH #### [facility] [address] [place] [address] Dr. David Das EO # 0.1 103/ul Normal 0.0-0.7 [facility] Comment on above: Performed By: #### L IPID, CMP, T7, BNP, TSH #### [facility] [address] [place] [address] Dr. David Das Eosinophils/100 WBC (Bld) 1.4 % Normal 0.9-7.0 [facility] Comment on above: Performed By: #### L IPID, CMP, T7, BNP, TSH #### [facility] [address] [place] [address] Dr. David Das Erythrocyte distribution width (RBC) [Ratio] 12.4 % Normal 11.0-15.0 [facility] Comment on above: Performed By: #### L IPID, CMP, T7, BNP, TSH #### [facility] [address] [place] [address] Dr. David Das Hematocrit (Bld) [Volume fraction] 43.8 % Normal 36.0-48.0 [facility] Comment on above: Performed By: #### L IPID, CMP, T7, BNP, TSH #### [facility] [address] [place] [address] Dr. David Das Hemoglobin (Bld) [Mass/Vol] 14.6 g/dL Normal 12.0-16.0 [facility] Comment on above: Performed By: #### L IPID, CMP, T7, BNP, TSH #### [facility] [address] [place] [address] Dr. David Das IG # 0.01 10e3/ul Normal 0.00-0.03 [facility] Comment on above: Performed By: #### L IPID, CMP, T7, BNP, TSH #### [facility] [address] [place] [address] Dr. David Das IG % 0.2 % Normal 0.0-0.5 [facility] Comment on above: Performed By: #### L IPID, CMP, T7, BNP, TSH #### [facility] [address] [place] [address] Dr. David Das LYMPH # 1.8 103/ul Normal 1.2-3.8 [facility] Comment on above: Performed By: #### L IPID, CMP, T7, BNP, TSH #### [facility] [address] [place] [address] Dr. David Das Lymphocytes/100 WBC (Bld) 33.3 % Normal 20.5-60.0 [facility] Comment on above: Performed By: #### L IPID, CMP, T7, BNP, TSH #### [facility] [address] [place] [address] Dr. David Das MANUAL DIFF REQ NO Normal [facility] Comment on above: Performed By: #### L IPID, CMP, T7, BNP, TSH #### [facility] [address] [place] [address] Dr. David Das MCH (RBC) [Entitic mass] 30.7 pg Normal 26.7-34.0 [facility] Comment on above: Performed By: #### L IPID, CMP, T7, BNP, TSH #### [facility] [address] [place] [address] Dr. David Das MCHC (RBC) [Mass/Vol] 33.3 g/dL Normal 29.9-35.2 [facility] Comment on above: Performed By: #### L IPID, CMP, T7, BNP, TSH #### [facility] [address] [place] [address] Dr. David Das MCV (RBC) [Entitic vol] 92.0 fL Normal 81.0-99.0 [facility] Comment on above: Performed By: #### L IPID, CMP, T7, BNP, TSH #### [facility] [address] [place] [address] Dr. David Das MONO # 0.4 103/ul Normal 0.3-0.8 [facility] Comment on above: Performed By: #### L IPID, CMP, T7, BNP, TSH #### [facility] [address] [place] [address] Dr. David Das Monocytes/100 WBC (Bld) 7.6 % Normal 1.7-12.0 [facility] Comment on above: Performed By: #### L IPID, CMP, T7, BNP, TSH #### [facility] [address] [place] [address] Dr. David Das NEUT # 3.2 103/ul Normal 1.4-6.5 [facility] Comment on above: Performed By: #### L IPID, CMP, T7, BNP, TSH #### [facility] [address] [place] [address] Dr. David Das Neutrophils/100 WBC (Bld) 57.1 % Normal 43.0-75.0 [facility] Comment on above: Performed By: #### L IPID, CMP, T7, BNP, TSH #### [facility] [address] [place] [address] Dr. David Das Platelet mean volume (Bld) [Entitic vol] 10.5 fL Normal 9.5-13.5 [facility] Comment on above: Performed By: #### L IPID, CMP, T7, BNP, TSH #### [facility] [address] [place] [address] Dr. David Das PLT 200 103/ul Normal 150-450 [facility] Comment on above: Performed By: #### L IPID, CMP, T7, BNP, TSH #### [facility] [address] [place] [address] Dr. David Das RBC 4.76 106/ul Normal 4.20-5.40 [facility] Comment on above: Performed By: #### L IPID, CMP, T7, BNP, TSH #### [facility] [address] [place] [address] [address] David Das WBC 5.5 103/ul Normal 4.0-11.0 [facility] Comment on above: Performed By: #### L IPID, CMP, T7, BNP, TSH #### [facility] [address] [place] [address] Dr. David Das FREE THYROXINE INDEX T7on FTI 2.38 Normal 1.30-4.50 [facility] Comment on above: Performed By: #### L IPID, CMP, T7, BNP, TSH #### [facility] [address] [place] [address] Dr. David Das T3U 33.0 % Normal 30.0-39.0 [facility] Comment on above: Performed By: #### L IPID, CMP, T7, BNP, TSH #### [facility] [address] [place] [address] Dr. David Das T4 [Mass/Vol] 7.20 ug/dL Normal 4.80-13.90 [facility] Comment on above: Performed By: #### L IPID, CMP, T7, BNP, TSH #### [facility] [address] [place] [address] Dr. David Das GLYCOHEMOGLOBIN A1Con 2021 ADA RECOMMENDATION SEE BELOW Normal [facility] Comment on above: Result Comment: ADA RECOMMENDED LIMIT 4.0 - 6.0 ADA THERAPEUTIC TARGET < 7.0 ACTION SUGGESTED > 7.0 Performed By: #### L IPID, CMP, T7, BNP, TSH #### [facility] [address] [place] [address] Dr. David Das Glucose [Mass/Vol] 103 mg/dL Normal [facility] Comment on above: Performed By: #### L IPID, CMP, T7, BNP, TSH #### [facility] [address] [place] [address] Dr. David Das HbA1c (Bld) [Mass fraction] 5.2 % Normal 4.5-6.2 [facility] Comment on above: Performed By: #### L IPID, CMP, T7, BNP, TSH #### [facility] [address] [place] [address] [address] David Das IRONon 11-03-2022 Iron [Mass/Vol] 117.0 ug/dL Normal 50.0-170.0 [facility] Comment on above: Performed By: #### L IPID, CMP, T7, BNP, TSH #### [facility] [address] [place] [address] [address] David Das LIPID PROFILEon 11-03-2022 CHOL-HDL RATIO NORM SEE BELOW Normal [facility] Comment on above: Result Comment: 3.3 - 4.4 LOW RISK 4.4 - 7.1 AVERAGE RISK 7.1 - 11.0 MODERATE RISK >11.0 HIGH RISK Performed By: #### L IPID, CMP, T7, BNP, TSH #### [facility] [address] [address] [address] David Das Cholesterol [Mass/Vol] 120 mg/dL Normal <=200 [facility] Comment on above: Performed By: #### L IPID, CMP, T7, BNP, TSH #### [facility] [address] [place] [address] [address] David Das Cholesterol in HDL [Mass/Vol] 54 mg/dL Normal 40-60 [facility] Comment on above: Performed By: #### L IPID, CMP, T7, BNP, TSH #### [facility] [address] [place] [address] [address] David Das Cholesterol in LDL [Mass/Vol] 56.8 mg/dL Normal [facility] Comment on above: Performed By: #### L IPID, CMP, T7, BNP, TSH #### [facility] [address] [place] [address] [address] David Das Cholesterol.total/Ch olesterol in HDL [Mass ratio] 2.2 {ratio} Normal [facility] Comment on above: Performed By: #### L IPID, CMP, T7, BNP, TSH #### [facility] [address] [place] [address] [address] David Das HDL NORMAL > or = 60 mg/dl - LOW CARDIOVASCULAR RISK <40 mg/dl - HIGH CARDIOVASCULAR RISK Normal [facility] Comment on above: Performed By: #### L IPID, CMP, T7, BNP, TSH #### [facility] [address] [place] [address] [address] David Das LDL CALC NORMAL SEE BELOW Normal [facility] Comment on above: Result Comment: <100 mg/dl OPTIMAL 100 - 129 mg/dl NEAR OR ABOVE OPTIMAL 130 - 159 mg/dl BORDERLINE HIGH 160 - 189 mg/dl HIGH >190 mg/dl VERY HIGH Performed By: #### L IPID, CMP, T7, BNP, TSH #### [facility] [address] [address] [address] David Das Triglyceride [Mass/Vol] 46 mg/dL Normal <=150 [facility] Comment on above: Performed By: #### L IPID, CMP, T7, BNP, TSH #### [facility] [address] [place] [address] [address] David Das VLDL CALC 9.2 mg/dL Normal [facility] Comment on above: Performed By: #### L IPID, CMP, T7, BNP, TSH #### [facility] [address] [place] [address] [address] David Das PROF 14(COMP METB)on 022 Albumin [Mass/Vol] 4.1 g/dL Normal 3.4-5.0 [facility] Comment on above: Performed By: #### L IPID, CMP, T7, BNP, TSH #### [facility] [address] [address] [address] David Das Albumin/Globulin [Mass ratio] 1.2 {ratio} Normal [facility] Comment on above: Performed By: #### L IPID, CMP, T7, BNP, TSH #### [facility] [address] [place] [address] [address] David Das ALP [Catalytic activity/Vol] 50 U/L Normal 46-116 [facility] Comment on above: Performed By: #### L IPID, CMP, T7, BNP, TSH #### [facility] [address] [place] [address] [address] David Das ALT [Catalytic activity/Vol] 15 U/L Normal 14-59 [facility] Comment on above: Performed By: #### L IPID, CMP, T7, BNP, TSH #### [facility] [address] [place] [address] [address] David Das Anion gap [Moles/Vol] 11.0 mmol/L Normal [facility] Comment on above: Performed By: #### L IPID, CMP, T7, BNP, TSH #### [facility] [address] [place] [address] [address] David Das AST [Catalytic activity/Vol] 16 U/L Normal 15-37 [facility] Comment on above: Performed By: #### L IPID, CMP, T7, BNP, TSH #### [facility] [address] [place] [address] [address] David Das Bilirubin [Mass/Vol] 0.5 mg/dL Normal 0.2-1.0 [facility] Comment on above: Performed By: #### L IPID, CMP, T7, BNP, TSH #### [facility] [address] [place] [address] [address] David Das Calcium [Mass/Vol] 8.7 mg/dL Normal 8.5-10.1 [facility] Comment on above: Performed By: #### L IPID, CMP, T7, BNP, TSH #### [facility] [address] [place] [address] [address] David Das Chloride [Moles/Vol] 104 mmol/L Normal 98-107 [facility] Comment on above: Performed By: #### L IPID, CMP, T7, BNP, TSH #### [facility] [address] [place] [address] [address] David Das CO2 [Moles/Vol] 31.4 mmol/L Normal 21.0-32.0 [facility] Comment on above: Performed By: #### L IPID, CMP, T7, BNP, TSH #### [facility] [address] [place] [address] [address] David Das Creatinine [Mass/Vol] 0.64 mg/dL Normal 0.55-1.02 [facility] Comment on above: Performed By: #### L IPID, CMP, T7, BNP, TSH #### [facility] [address] [place] [address] [address] David Das EGFR-AF SOUTH [place]OREAN >60 Normal >=60 [facility] Comment on above: Performed By: #### L IPID, CMP, T7, BNP, TSH #### [facility] [address] [place] [address] [address] David Das EGFR-NON AF [place] >60 Normal >=60 [facility] Comment on above: Performed By: #### L IPID, CMP, T7, BNP, TSH #### [facility] [address] [place] [address] [address] David Das Globulin (S) [Mass/Vol] 3.4 g/dL Normal [facility] Comment on above: Performed By: #### L IPID, CMP, T7, BNP, TSH #### [facility] [address] [place] [address] Dr. David Das Glucose [Mass/Vol] 92 mg/dL Normal 74-106 [facility] Comment on above: Performed By: #### L IPID, CMP, T7, BNP, TSH #### [facility] [address] [place] [address] Dr. David Das Potassium [Moles/Vol] 4.4 mmol/L Normal 3.5-5.1 [facility] Comment on above: Performed By: #### L IPID, CMP, T7, BNP, TSH #### [facility] [address] [place] [address] [address] David Das Protein [Mass/Vol] 7.5 g/dL Normal 6.4-8.2 [facility] Comment on above: Performed By: #### L IPID, CMP, T7, BNP, TSH #### [facility] [address] [place] [address] Dr. David Das Sodium [Moles/Vol] 142 mmol/L Normal 136-145 [facility] Comment on above: Performed By: #### L IPID, CMP, T7, BNP, TSH #### [facility] [address] [place] [address] Dr. David Das Urea nitrogen [Mass/Vol] 11.0 mg/dL Normal 7.0-18.0 [facility] Comment on above: Performed By: #### L IPID, CMP, T7, BNP, TSH #### [facility] [address] [place] [address] Dr. David Das Urea nitrogen/Creatinine [Mass ratio] 17.2 mg/mg Normal [facility] Comment on above: Performed By: #### L IPID, CMP, T7, BNP, TSH #### [facility] [address] [place] [address] Dr. David Das TSHon 11-03-2022 TSH 1.923 uIU/mL Normal 0.358-3.740 [facility] Comment on above: Performed By: #### L IPID, CMP, T7, BNP, TSH #### [facility] [address] [place] [address] Dr. David Das Covid-19 PCR (CVDTB)on 05-17 SARS-CoV-2 (COVID-19) RNA BACILIO+probe Ql (Unsp spec) Detected Critically abnormal NOT DETECTED [facility] Comment on above: Result Comment: This test is not yet approved or cleared by the [place] FDA. When there are no FDA-approved or cleared tests available, and other criteria are met, FDA can make tests available under an emergency access mechanism called an Emergency Use Authorization (EUA). The EUA for this test is supported by the [employer] Clerk of Health and Human Service's declaration that [...] used). Performed By: #### C VDTBH #### [facility] [address] [place] [address] Dr. David Das PAP ACOG PANEL 2: 21 to 29on 05-23-2022 . . Normal [facility] Comment on above: Performed By: #### L IPID, CMP, T7, BNP, TSH #### [facility] [address] [place] [address] [address] David Das Age Gdln ACOG Testing 19- [facility] Comment on above: Performed By: #### L IPID, CMP, T7, BNP, TSH #### [facility] [address] [place] [address] [address] David Das DIAGNOSIS: Comment [facility] Comment on above: Result Comment: NEGA TIVE FOR INTRAEPITHELIAL LESION OR MALIGNANCY. Performed By: #### L IPID, CMP, T7, BNP, TSH #### [facility] [address] [address] [address] David Das Methodology: Comment [facility] Comment on above: Result Comment: This liquid based ThinPrep(R) pap test was screened with the use of an image guided system. Performed By: #### L IPID, CMP, T7, BNP, TSH #### [facility] [address] [address] [address] David Das Note: Comment [facility] Comment on above: Result Comment: [...] L IPID, CMP, T7, BNP, TSH #### [facility] [address] [place] [address] [address] David Das Performed by: Comment [facility] Comment on above: Result Comment: Cayla Jay, Resident Care Spec (ASCP) Performed By: #### L IPID, CMP, T7, BNP, TSH #### [facility] [address] [place] [address] [address] David Das Reflex Criteria: Comment [facility] Comment on above: Result Comment: The HPV DNA reflex criteria were not met with this specimen result therefore, no HPV testing was performed. . Performed By: #### L IPID, CMP, T7, BNP, TSH #### [facility] [address] [place], [place] [address] Dr. David Das Specimen adequacy: Comment Normal [facility] Comment on above: Result Comment: Sati sfactory for evaluation. Endocervical and/or squamous metaplastic cells (endocervical component) are present. Areas of partially obscuring inflammatory exudate are present. Performed By: #### L IPID, CMP, T7, BNP, TSH #### [facility] [address] [place], [place] [address] Dr. David Das XR FOOT RT MIN 3 VIEWSon XR FOOT RT MIN 3 VIEWS IMAGES REVIEWED: XR FOOT RT MIN 3 VIEWS COMPARISON: None available. CLINICAL INDICATION: Pain, no injury. FINDINGS/IMPRESSION: Unremarkable radiographic appearance of the right foot. Electronically authenticated by: VIVIEN NOONAN Date: 2022-03-27 20:26 Normal [facility] Pathology Noteon 02-24-2022 Pathology Note [id number] #1.00CD:127 Normal [facility] Ambulatory Visit Summaryon 0 02-19-2022 Ambulatory [...] (irritable bowel syndrome) Orthostatic hypotension Scoliosis Normal [facility] General Surgery Office/Clini c Noteon 02-19-2022 [...] influenza virus vaccine, inactivated 07/2021 Recorded Normal [facility] Comment on above: Result Comment: Elec tronically Signed By: CHAMP FUENTES, Marleni Fletcher\Date and Time Signed: 02/19/22 17:00 EDT Facesheeton 02-12-2022 Facesheet [id number] #[id number]:127 Normal [facility] BNPon 02-01-2022 Natriuretic peptide B (Bld) [Mass/Vol] 64.0 pg/mL Normal <=450.0 [facility] Comment on above: Performed By: #### L IPID, CMP, T7, BNP, TSH #### [facility] [address] [place] [address] [address] David Das CBC AUTO DIFFon 02-01-2022 BASO # 0.0 103/ul Normal 0.0-0.1 [facility] Comment on above: Performed By: #### L IPID, CMP, T7, BNP, TSH #### [facility] [address] [place] [address] [address] David Das Basophils/100 WBC (Bld) 0.4 % Normal 0.2-2.0 [facility] Comment on above: Performed By: #### L IPID, CMP, T7, BNP, TSH #### [facility] [address] [place] [address] Dr. David Das EO # 0.1 103/ul Normal 0.0-0.7 [facility] Comment on above: Performed By: #### L IPID, CMP, T7, BNP, TSH #### [facility] [address] [place] [address] Dr. David Das Eosinophils/100 WBC (Bld) 1.8 % Normal 0.9-7.0 [facility] Comment on above: Performed By: #### L IPID, CMP, T7, BNP, TSH #### [facility] [address] [place] [address] Dr. David Das Erythrocyte distribution width (RBC) [Ratio] 12.5 % Normal 11.0-15.0 [facility] Comment on above: Performed By: #### L IPID, CMP, T7, BNP, TSH #### [facility] [address] [place] [address] Dr. David Das Hematocrit (Bld) [Volume fraction] 43.6 % Normal 36.0-48.0 [facility] Comment on above: Performed By: #### L IPID, CMP, T7, BNP, TSH #### [facility] [address] [place] [address] Dr. David Das Hemoglobin (Bld) [Mass/Vol] 14.2 g/dL Normal 12.0-16.0 [facility] Comment on above: Performed By: #### L IPID, CMP, T7, BNP, TSH #### [facility] [address] [place] [address] Dr. David Das IG # 0.01 10e3/ul Normal 0.00-0.03 [facility] Comment on above: Performed By: #### L IPID, CMP, T7, BNP, TSH #### [facility] [address] [place] [address] Dr. David Das IG % 0.2 % Normal 0.0-0.5 [facility] Comment on above: Performed By: #### L IPID, CMP, T7, BNP, TSH #### [facility] [address] [place] [address] Dr. David Das LYMPH # 1.8 103/ul Normal 1.2-3.8 [facility] Comment on above: Performed By: #### L IPID, CMP, T7, BNP, TSH #### [facility] [address] [place] [address] Dr. David Das Lymphocytes/100 WBC (Bld) 32.0 % Normal 20.5-60.0 [facility] Comment on above: Performed By: #### L IPID, CMP, T7, BNP, TSH #### [facility] [address] [place] [address] Dr. David Das MANUAL DIFF REQ NO Normal [facility] Comment on above: Performed By: #### L IPID, CMP, T7, BNP, TSH #### [facility] [address] [place] [address] Dr. David Das MCH (RBC) [Entitic mass] 30.8 pg Normal 26.7-34.0 [facility] Comment on above: Performed By: #### L IPID, CMP, T7, BNP, TSH #### [facility] [address] [place] [address] Dr. David Das MCHC (RBC) [Mass/Vol] 32.6 g/dL Normal 29.9-35.2 [facility] Comment on above: Performed By: #### L IPID, CMP, T7, BNP, TSH #### [facility] [address] [place] [address] Dr. David Das MCV (RBC) [Entitic vol] 94.6 fL Normal 81.0-99.0 [facility] Comment on above: Performed By: #### L IPID, CMP, T7, BNP, TSH #### [facility] [address] [place] [address] Dr. David Das MONO # 0.4 103/ul Normal 0.3-0.8 [facility] Comment on above: Performed By: #### L IPID, CMP, T7, BNP, TSH #### [facility] [address] [place] [address] Dr. David Das Monocytes/100 WBC (Bld) 6.5 % Normal 1.7-12.0 [facility] Comment on above: Performed By: #### L IPID, CMP, T7, BNP, TSH #### [facility] [address] [place] [address] Dr. David Das NEUT # 3.3 103/ul Normal 1.4-6.5 [facility] Comment on above: Performed By: #### L IPID, CMP, T7, BNP, TSH #### [facility] [address] [place] [address] Dr. David Das Neutrophils/100 WBC (Bld) 59.1 % Normal 43.0-75.0 [facility] Comment on above: Performed By: #### L IPID, CMP, T7, BNP, TSH #### [facility] [address] [place] [address] Dr. David Das Platelet mean volume (Bld) [Entitic vol] 10.5 fL Normal 9.5-13.5 [facility] Comment on above: Performed By: #### L IPID, CMP, T7, BNP, TSH #### [facility] [address] [place] [address] Dr. David Das PLT 195 103/ul Normal 150-450 [facility] Comment on above: Performed By: #### L IPID, CMP, T7, BNP, TSH #### [facility] [address] [place] [address] Dr. David Das RBC 4.61 106/ul Normal 4.20-5.40 [facility] Comment on above: Performed By: #### L IPID, CMP, T7, BNP, TSH #### [facility] [address] [place] [address] Dr. David Das WBC 5.7 103/ul Normal 4.0-11.0 [facility] Comment on above: Performed By: #### L IPID, CMP, T7, BNP, TSH #### [facility] [address] [place] [address] Dr. David Das FREE THYROXINE INDEX T7on FTI 2.41 Normal [facility] Comment on above: Performed By: #### L IPID, CMP, T7, BNP, TSH #### [facility] [address] [address] [address] David Das T3U 33.0 % Normal 23.5-40.5 [facility] Comment on above: Performed By: #### L IPID, CMP, T7, BNP, TSH #### [facility] [address] [address] [address] David Das T4 [Mass/Vol] 7.30 ug/dL Normal 5.53-11.00 [facility] Comment on above: Performed By: #### L IPID, CMP, T7, BNP, TSH #### [facility] [address] [address] [address] David Das GLYCOHEMOGLOBIN A1Con 2021 ADA RECOMMENDATION ADA THERAPEUTIC TARGET 6.0 - 7.0 ACTION SUGGESTED > 7.0 Normal [facility] Comment on above: Performed By: #### A 1C #### [facility] [address] [address] [address] David Das Glucose [Mass/Vol] 100 mg/dL Normal [facility] Comment on above: Performed By: #### A 1C #### [facility] [address] [address] [address] David Das HbA1c (Bld) [Mass fraction] 5.1 % Normal <=6.0 [facility] Comment on above: Performed By: #### A 1C #### [facility] [address] [address] [address] David Das IRONon 02-01-2022 Iron [Mass/Vol] 101.0 ug/dL Normal 37.0-170.0 [facility] Comment on above: Performed By: #### L IPID, CMP, T7, BNP, TSH #### [facility] [address] [address] [address] David Das LIPID PROFILEon 02-01-2022 CHOL-HDL RATIO NORM SEE BELOW Normal [facility] Comment on above: Result Comment: 3.3 - 4.4 LOW RISK 4.4 - 7.1 AVERAGE RISK 7.1 - 11.0 MODERATE RISK >11.0 HIGH RISK Performed By: #### L IPID, CMP, T7, BNP, TSH #### [facility] [address] [address] [address] David Das Cholesterol [Mass/Vol] 123 mg/dL Normal <=200 [facility] Comment on above: Performed By: #### L IPID, CMP, T7, BNP, TSH #### [facility] [address] [address] [address] David Das Cholesterol in HDL [Mass/Vol] 44 mg/dL Normal 40-60 [facility] Comment on above: Performed By: #### L IPID, CMP, T7, BNP, TSH #### [facility] [address] [address] [address] David Das Cholesterol in LDL [Mass/Vol] 63.2 mg/dL Normal [facility] Comment on above: Performed By: #### L IPID, CMP, T7, BNP, TSH #### [facility] [address] [address] [address] David Das Cholesterol.total/Ch olesterol in HDL [Mass ratio] 2.8 {ratio} Normal [facility] Comment on above: Performed By: #### L IPID, CMP, T7, BNP, TSH #### [facility] [address] [address] [address] David Das HDL NORMAL > or = 60 mg/dl - LOW CARDIOVASCULAR RISK <40 mg/dl - HIGH CARDIOVASCULAR RISK Normal [facility] Comment on above: Performed By: #### L IPID, CMP, T7, BNP, TSH #### [facility] [address] [address] [address] David Das LDL CALC NORMAL SEE BELOW Normal [facility] Comment on above: Result Comment: <100 mg/dl OPTIMAL 100 - 129 mg/dl NEAR OR ABOVE OPTIMAL 130 - 159 mg/dl BORDERLINE HIGH 160 - 189 mg/dl HIGH >190 mg/dl VERY HIGH Performed By: #### L IPID, CMP, T7, BNP, TSH #### [facility] [address] [address] [address] David Das Triglyceride [Mass/Vol] 79 mg/dL Normal <=150 [facility] Comment on above: Performed By: #### L IPID, CMP, T7, BNP, TSH #### [facility] [address] [address] [address] David Das VLDL CALC 15.8 mg/dL Normal [facility] Comment on above: Performed By: #### L IPID, CMP, T7, BNP, TSH #### [facility] [address] [address] [address] David Das PROF 14(COMP METB)on 022 Albumin [Mass/Vol] 3.9 g/dL Normal 3.4-5.0 [facility] Comment on above: Performed By: #### L IPID, CMP, T7, BNP, TSH #### [facility] [address] [address] [address] David Das Albumin/Globulin [Mass ratio] 1.2 {ratio} Normal [facility] Comment on above: Performed By: #### L IPID, CMP, T7, BNP, TSH #### [facility] [address] [address] [address] David Das ALP [Catalytic activity/Vol] 49 U/L Normal 46-116 [facility] Comment on above: Performed By: #### L IPID, CMP, T7, BNP, TSH #### [facility] [address] [address] [address] David Das ALT [Catalytic activity/Vol] 13 U/L Critically low 14-59 [facility] Comment on above: Performed By: #### L IPID, CMP, T7, BNP, TSH #### [facility] [address] [address] [address] David Das Anion gap [Moles/Vol] 12.6 mmol/L Normal [facility] Comment on above: Performed By: #### L IPID, CMP, T7, BNP, TSH #### [facility] [address] [place] [address] Dr. David Das AST [Catalytic activity/Vol] 10 U/L Critically low 15-37 [facility] Comment on above: Performed By: #### L IPID, CMP, T7, BNP, TSH #### [facility] [address] [address] [address] David Das Bilirubin [Mass/Vol] 0.4 mg/dL Normal 0.2-1.3 [facility] Comment on above: Performed By: #### L IPID, CMP, T7, BNP, TSH #### [facility] [address] [place] [address] Dr. David Das Calcium [Mass/Vol] 8.7 mg/dL Normal 8.5-10.1 [facility] Comment on above: Performed By: #### L IPID, CMP, T7, BNP, TSH #### [facility] [address] [place] [address] Dr. David Das Chloride [Moles/Vol] 106 mmol/L Normal 98-107 [facility] Comment on above: Performed By: #### L IPID, CMP, T7, BNP, TSH #### [facility] [address] [place] [address] Dr. David Das CO2 [Moles/Vol] 27.9 mmol/L Normal 22.0-30.0 [facility] Comment on above: Performed By: #### L IPID, CMP, T7, BNP, TSH #### [facility] [address] [place] [address] Dr. David Das Creatinine [Mass/Vol] 0.69 mg/dL Normal 0.52-1.04 [facility] Comment on above: Performed By: #### L IPID, CMP, T7, BNP, TSH #### [facility] [address] [place] [address] Dr. David Das EGFR-AF SOUTH [place]OREAN >60 Normal >=60 [facility] Comment on above: Performed By: #### L IPID, CMP, T7, BNP, TSH #### [facility] [address] [place] [address] Dr. David Das EGFR-NON AF [place]OREAN >60 Normal >=60 [facility] Comment on above: Performed By: #### L IPID, CMP, T7, BNP, TSH #### [facility] [address] [address] [address] David Das Globulin (S) [Mass/Vol] 3.2 g/dL Normal [facility] Comment on above: Performed By: #### L IPID, CMP, T7, BNP, TSH #### [facility] [address] [address] [address] David Das Glucose [Mass/Vol] 104 mg/dL Normal 74-106 [facility] Comment on above: Performed By: #### L IPID, CMP, T7, BNP, TSH #### [facility] [address] [place] [address] Dr. David Das Potassium [Moles/Vol] 4.5 mmol/L Normal 3.4-5.0 [facility] Comment on above: Performed By: #### L IPID, CMP, T7, BNP, TSH #### [facility] [address] [place] [address] Dr. David Das Protein [Mass/Vol] 7.1 g/dL Normal 6.1-8.2 [facility] Comment on above: Performed By: #### L IPID, CMP, T7, BNP, TSH #### [facility] [address] [place] [address] Dr. David Das Sodium [Moles/Vol] 142 mmol/L Normal 137-145 [facility] Comment on above: Performed By: #### L IPID, CMP, T7, BNP, TSH #### [facility] [address] [address] [address] David Das Urea nitrogen [Mass/Vol] 12.0 mg/dL Normal 7.0-18.0 [facility] Comment on above: Performed By: #### L IPID, CMP, T7, BNP, TSH #### [facility] [address] [place] [address] Dr. David Das Urea nitrogen/Creatinine [Mass ratio] 17.4 mg/mg Normal [facility] Comment on above: Performed By: #### L IPID, CMP, T7, BNP, TSH #### [facility] [address] [address] [address] David Das TSHon 02-01-2022 TSH 1.718 uIU/mL Normal 0.470-4.680 [facility] Comment on above: Performed By: #### L IPID, CMP, T7, BNP, TSH #### [facility] [address] [address] [address] David Das TSH RANGE SEE BELOW Normal [facility] Comment on above: Result Comment: <0.3 4 UIU/ml HYPERTHYROID 0.34-5.60 UIU/ml EUTHYROID >5.60 UIU/ml HYPOTHYROID Performed By: #### L IPID, CMP, T7, BNP, TSH #### [facility] [address] [address] [address] David Das Physician Referralon 022 Physician Referral [id number] #[id number] Normal [facility] Covid-19 PCR (CVDTB)on 12-18 SARS-CoV-2 (COVID-19) RNA BACILIO+probe Ql (Unsp spec) Not detected Normal NOT DETECTED [facility] Comment on above: Result Comment: This test is not yet approved or cleared by the [place] FDA. When there are no FDA-approved or cleared tests available, and other criteria are met, FDA can make tests available under an emergency access mechanism called an Emergency Use Authorization (EUA). The EUA for this test is supported by the [place] of Health and Human Service's (HHS's) declaration [...] consistent with SARS-CoV-2. Performed By: #### C VDTB #### [facility] [address] [place] [address] Dr. David Das Encounters Encounter Date Encounter Type Care Provider Facility Start: 04-26-2024 End: 04-26-2024 ambulatory GONZALES OMAYRA Not Available Start: 04-12-2024 End: 04-12-2024 ambulatory GONZALES OMAYRA Not Available Start: 03-28-2024 End: 03-28-2024 ambulatory ALEXIS ORTIZ Not Available Start: 03-02-2024 End: 03-02-2024 ambulatory GONZALES OMAYRA [...] 12-28-2023 ALL CBC WITH AUTO DIFF Gonzales Cutler DO Work Phone: Plan of Treatment Date Care Activity Detail Author Start: 01-06-2024 End: 01-06-2024 Patient encounter procedure 01/06/2024 2:10 PM EST Routine [facility] [address] [place] [id number] Gonzales Cutler, DO [address] [place] [address] [facility] Start: 07-17-2023 Influenza vaccination Influenza Vacc ine (#1) [facility] Start: 2023 Screening for malign ant neoplasm of cervix [facility] Start: 2014 Screening for malign ant neoplasm of cervix Pap Smear [facility] Immunizations Immunization Date Immunization Notes Care Provider Fa cility 08-03-2022 influenza virus vacc ine, unspecified formulation Gonzales Cutler DO Work Phone: [facility] Payers Date Payer Category Payer Unknown BCBS BCBS xxxxxx [id number] 2023-Present [phone] [address] [place] [address] [id number] 2023 Unknown [id number] 1993 Unknown [id number] 2..[id number] 1993 Unknown [id number] 2.840.1.467864.3.579.2.593 1993 Unknown [id number] 2..840.1.813978.3.579.2.593 1993 Unknown [id number] 2..840.1.122580.3.579.2.593 1993 Unknown [id number] 2.16.840.1.034348.3.579.2.593 1993 Unknown [id number] 2.16.840.1.826070.3.579.2.593 1993 Unknown [id number] 2.16.840.1.564147.3.579.2.593 1993 Unknown [id number] 2.16.840.1.193304.3.579.2.593 1993 Unknown [id number] 2.16.840.1.600411.3.579.2.593 1993 Unknown [id number] 2.16.840.1.133830.3.579.2.1259 1993 Unknown [id number] 2.16840.1.569004.3.579.2.1259 1993 Unknown [id number] 2.16.840.1.411798.3.579.2.1259 1993 Unknown [id number] 2.16.840.1.598573.3.579.2.1259 1993 Unknown [id number] 2.16.840.1.206103.3.579.2.1259 1993 Unknown [id number] 2.16840.1.362878.3.579.2.1259 1993 Unknown [id number] 2.16840.1.916919.3.579.2.1259 1959 Self-pay 1959 Unknown [id number] 1959 Unknown [id number] 1959 Unknown [id number] 1959 Unknown [id number] Social History Date Type Detail Facility Start: 07-01-2023 Tobacco smoking stat [facility] Never smoked tobacco [facility] Start: 07-01-2023 History of Social function [facility] Start: 07-01-2023 Tobacco use panel [facility] Start: 09-28-2023 [facility] Start: 1995 Sex Assigned At Female [facility] Start: 05-08-2023 Gender identity Identifies as female gender (finding) [facility] Start: 05-08-2023 Sexual orientation Heterosexual (arthur lorie) [facility] Goals Date Patient Goal Desired Activity [...] Status influenza virus vaccine, inactivated 07/2021 Recorded [facility] Comment on above: Result Comment: Elec [...] section and content) DATE CREATED AUTHOR 02/25/2022 Albaro Rodriguez [facility] DATE CREATED AUTHOR AUTHOR'S ORGANIZ ATION 11/13/2022 [facility] DATE CREATED AUTHOR AUTHOR'S ORGANIZ ATION 04/26/2024 [facility] FOR RECORDS PERTAINING TO PATIENTS WHO [...] BE BASED ON THE PRIMARY CLINICAL RECORDS. [facility] [employer] provides no warranty or guarantee of the accuracy or completeness of information in this document.
--- NOTE | 2024-05-06 15:23 | US_ITS ---
[address] [address] Patient Name: ABEL ROBISON MRN: [id number] date: 1995 Sex: F Assigned Patient Location: [facility] Current Patient Location: Accession/Order Number: [id number] Exam Date: 05/06/2024 15:29 Report Date: 05/06/2024 16:42 At the request of: GONZALES LEON Procedure: US OB BPP w non-stress EXAM: US OB BPP w non-stress HISTORY: low mikey COMPARISON: US OB BPP w non-stress Study Date: 05/03/2024 TECHNIQUE: Limited ultrasound for evaluation of biophysical profile is performed. Multiple grayscale and color images are submitted for review. FINDINGS: Single live intrauterine seen with heart rate 153 bpm. Biophysical profile: breathin body movements: 2 tone: 2 Amniotic fluid volume: 2 Total biophysical profile score is 8 out of 8. Amniotic fluid index measures 11.5 cm. US/US OB BPP w non-stress IMPRESSION: Single live intrauterine seen with heart rate 153 bpm. Total biophysical profile score is 8 out of 8. Electronically authenticated by: DAVIS NORIEGA Date: 05/06/2024 16:42
[2024-05-06 15:57] VITALS: BP 107/69; PULSE 88
[2024-05-06 16:01] LABS: Thyroid Stimulating Hormone 2.229 uIU/mL (0.358-3.740)
== END 2024-05-06 16:22 | disposition home or self-care (01) ==
LOC: LAB 07:05 → FBC 14:58
PROVIDERS: Visit Provider Obstetrics & Gynecology
DX: Z33.3 Pregnant state, gestational carrier (principal)
CPT/HCPCS: 36415; 76818; 84443

== ENCOUNTER 2024-05-10 07:00 | Outpatient (OUT) | payer BC, SELFPAY ==
--- OUTSIDE RECORDS SUMMARY | 2024-05-10 07:04 | XMS_ITS | CCD ---
Author Organization [facility] CliniSysc Care Team Providers Care Life Teacher Name Role Phone TARAS, DR EARLY Admitting [...] COREY Keen Attending Unavailable YAROSHMARLENI Consulting Unavailable HSAISTA, VIVIEN Consulting Unavailable HOY, DR GOLD Admitting Unavailable HOY, DR GOLD Attending Unavailable HOY, DR GOLD Primary Care Unavailable HOY, DR GOLD Admitting Unavailable HOY, DR OGLD Attending Unavailable HOY, DR GOLD Primary Care Unavailable HOY, DR GOLD Consulting Unavailable HOY, DR GLOD Admitting Unavailable HOY, DR GOLD Attending Unavailable [...] vomiting 30 tablet 2 12/09/2023 01/08/2024 Active Rsrbgjlf-Klz-Hj-FA ( 1 + IRON PO) (1 source) Vafzdphk-Ouq-Ke-FA ( 1 + IRON PO) Take 1 [...] fraction] 36.6 % 36.0 - 48.0 % [facility] Hemoglobin (Bld) [Mass/Vol] 12.2 g/dL 12.0 - 16.0 g/dL [facility] IMMATURE GRANULOCYTES ABS AUTO 0.04 High [facility] Immature granulocytes/100 WBC (Bld) 0.5 % 0.0 - 0.5 % [facility] Interpretation and review of laboratory results Abnormal [facility] LYMPHOCYTES ABSOLUTE AUTO 2.0 [facility] Lymphocytes/100 WBC (Bld) 23.3 % 20.5 - 60.0 % [facility] MCH (RBC) [Entitic mass] 31.5 pg 26.7 - 34.0 pg [facility] MCHC (RBC) [Mass/Vol] 33.3 g/dL 29.9 - 35.2 g/dL [facility] MCV (RBC) [Entitic vol] 94.6 fL 81.0 - 99.0 fL [facility] MONOCYTES ABSOLUTE AUTO 0.5 [facility] Monocytes/100 WBC (Bld) 6.3 % 1.7 - 12.0 % [facility] NEUTROPHILS ABSOLUTE AUTO 6.0 [facility] Neutrophils/100 WBC (Bld) 69.0 % 43.0 - 75.0 % [facility] Platelet mean volume (Bld) [Entitic vol] 11.3 fL 9.5 - 13.5 fL [facility] TBH EO # 0.1 [facility] TB PLT 208 [facility] TB RBC 3.87 Low [facility] WBC 8.6 [facility] CHLAMYDIA/GONOCOCCUS BACILIO ( AB/URINE/PAPon 11-07-2022 Chlamydia trachomatis, BACILIO Negative Normal Negative [facility] Comment on above: Performed By: #### L IPID, CMP, T7, BNP, TSH #### [facility] [address], [place] [address] Dr. David Das Neisseria gonorrhoeae, BACILIO Negative Normal Negative [facility] Comment on above: Performed By: #### L IPID, CMP, T7, BNP, TSH #### [facility] [address], [place] [address] Dr. David Das US PELVIS AND TRANSVAGon [...] SONIA CHEN Date: 2022-11-06 17:13 Normal [facility] VAGINITIS/VAGINOSIS DNA PROB Farhan 11-06-2022 Angelia species Negative Normal Negative [facility] Comment on above: Performed By: #### V AGINT #### [facility] [address] [place] [address] Dr. David Das Gardnerella vaginalis Negative Normal Negative [facility] Comment on above: Performed By: #### V AGINT #### [facility] [address] [address] [address] David Das Trichomonas vaginalis Negative Normal Negative [facility] Comment on above: Performed By: #### V AGINT #### [facility] [address] [address] [address] David Das INSULINon 11-04-2022 Insulin 17.4 uIU/mL Normal 2.6-24.9 [facility] Comment on above: Performed By: #### I NSULIN #### [facility] [address] [place] [address] Dr. David Das CBC AUTO DIFFon 11-03-2022 BASO # 0.0 103/ul Normal 0.0-0.1 [facility] Comment on above: Performed By: #### L IPID, CMP, T7, BNP, TSH #### [facility] [address] [place] [address] Dr. David Das Basophils/100 WBC (Bld) 0.4 % Normal 0.2-2.0 [facility] Comment on above: Performed By: #### L IPID, CMP, T7, BNP, TSH #### [facility] [address] [place] [address] Dr. David Das EO # 0.1 103/ul Normal 0.0-0.7 [facility] Comment on above: Performed By: #### L IPID, CMP, T7, BNP, TSH #### [facility] [address] [place] [address] Dr. David Das Eosinophils/100 WBC (Bld) 1.4 % Normal 0.9-7.0 [facility] Comment on above: Performed By: #### L IPID, CMP, T7, BNP, TSH #### [facility] [address] [place] [address] Dr. David Das Erythrocyte distribution width (RBC) [Ratio] 12.4 % Normal 11.0-15.0 [facility] Comment on above: Performed By: #### L IPID, CMP, T7, BNP, TSH #### [facility] [address] [place] [address] Dr. David Das Hematocrit (Bld) [Volume fraction] 43.8 % Normal 36.0-48.0 [facility] Comment on above: Performed By: #### L IPID, CMP, T7, BNP, TSH #### [facility] [address] [place] [address] Dr. David Das Hemoglobin (Bld) [Mass/Vol] 14.6 g/dL Normal 12.0-16.0 [facility] Comment on above: Performed By: #### L IPID, CMP, T7, BNP, TSH #### [facility] [address] [place] [address] Dr. David Das IG # 0.01 10e3/ul Normal 0.00-0.03 [facility] Comment on above: Performed By: #### L IPID, CMP, T7, BNP, TSH #### [facility] [address] [place] [address] Dr. David Das IG % 0.2 % Normal 0.0-0.5 [facility] Comment on above: Performed By: #### L IPID, CMP, T7, BNP, TSH #### [facility] [address] [place] [address] Dr. David Das LYMPH # 1.8 103/ul Normal 1.2-3.8 [facility] Comment on above: Performed By: #### L IPID, CMP, T7, BNP, TSH #### [facility] [address] [place] [address] Dr. David Das Lymphocytes/100 WBC (Bld) 33.3 % Normal 20.5-60.0 [facility] Comment on above: Performed By: #### L IPID, CMP, T7, BNP, TSH #### [facility] [address] [place] [address] Dr. aDvid Das MANUAL DIFF REQ NO Normal [facility] Comment on above: Performed By: #### L IPID, CMP, T7, BNP, TSH #### [facility] [address] [place] [address] Dr. David Das MCH (RBC) [Entitic mass] 30.7 pg Normal 26.7-34.0 [facility] Comment on above: Performed By: #### L IPID, CMP, T7, BNP, TSH #### [facility] [address] [place] [address] Dr. David Das MCHC (RBC) [Mass/Vol] 33.3 g/dL Normal 29.9-35.2 [facility] Comment on above: Performed By: #### L IPID, CMP, T7, BNP, TSH #### [facility] [address] [place] [address] Dr. David Das MCV (RBC) [Entitic vol] 92.0 fL Normal 81.0-99.0 [facility] Comment on above: Performed By: #### L IPID, CMP, T7, BNP, TSH #### [facility] [address] [place] [address] Dr. David Das MONO # 0.4 103/ul Normal 0.3-0.8 [facility] Comment on above: Performed By: #### L IPID, CMP, T7, BNP, TSH #### [facility] [address] [place] [address] Dr. David Das Monocytes/100 WBC (Bld) 7.6 % Normal 1.7-12.0 [facility] Comment on above: Performed By: #### L IPID, CMP, T7, BNP, TSH #### [facility] [address] [place] [address] Dr. David Das NEUT # 3.2 103/ul Normal 1.4-6.5 [facility] Comment on above: Performed By: #### L IPID, CMP, T7, BNP, TSH #### [facility] [address] [place] [address] Dr. David Das Neutrophils/100 WBC (Bld) 57.1 % Normal 43.0-75.0 [facility] Comment on above: Performed By: #### L IPID, CMP, T7, BNP, TSH #### [facility] [address] [place] [address] Dr. David Das Platelet mean volume (Bld) [Entitic vol] 10.5 fL Normal 9.5-13.5 [facility] Comment on above: Performed By: #### L IPID, CMP, T7, BNP, TSH #### [facility] [address] [place] [address] Dr. David Das PLT 200 103/ul Normal 150-450 [facility] Comment on above: Performed By: #### L IPID, CMP, T7, BNP, TSH #### [facility] [address] [place] [address] Dr. David Das RBC 4.76 106/ul Normal 4.20-5.40 [facility] Comment on above: Performed By: #### L IPID, CMP, T7, BNP, TSH #### [facility] [address] [address] [address] David Das WBC 5.5 103/ul Normal 4.0-11.0 [facility] Comment on above: Performed By: #### L IPID, CMP, T7, BNP, TSH #### [facility] [address] [place] [address] Dr. David Das FREE THYROXINE INDEX T7on FTI 2.38 Normal 1.30-4.50 [facility] Comment on above: Performed By: #### L IPID, CMP, T7, BNP, TSH #### [facility] [address] [place] [address] Dr. David Das T3U 33.0 % Normal 30.0-39.0 [facility] Comment on above: Performed By: #### L IPID, CMP, T7, BNP, TSH #### [facility] [address] [place] [address] Dr. David Das T4 [Mass/Vol] 7.20 ug/dL Normal 4.80-13.[address] [facility] Comment on above: Performed By: #### L IPID, CMP, T7, BNP, TSH #### [facility] [address] [place] [address] Dr. David Das GLYCOHEMOGLOBIN A1Con 2021 ADA RECOMMENDATION SEE BELOW Normal [facility] Comment on above: Result Comment: ADA RECOMMENDED LIMIT 4.0 - 6.0 ADA THERAPEUTIC TARGET < 7.0 ACTION SUGGESTED > 7.0 Performed By: #### L IPID, CMP, T7, BNP, TSH #### [facility] [address] [place] [address] Dr. David Das Glucose [Mass/Vol] 103 mg/dL Normal [facility] Comment on above: Performed By: #### L IPID, CMP, T7, BNP, TSH #### [facility] [address] [place] [address] Dr. David Das HbA1c (Bld) [Mass fraction] 5.2 % Normal 4.5-6.2 [facility] Comment on above: Performed By: #### L IPID, CMP, T7, BNP, TSH #### [facility] [address] [address] [address] David Das IRONon 11-03-2022 Iron [Mass/Vol] 117.0 ug/dL Normal 50.0-170.0 [facility] Comment on above: Performed By: #### L IPID, CMP, T7, BNP, TSH #### [facility] [address] [address] [address] David Das LIPID PROFILEon 11-03-2022 CHOL-HDL RATIO NORM SEE BELOW Normal [facility] Comment on above: Result Comment: 3.3 - 4.4 LOW RISK 4.4 - 7.1 AVERAGE RISK 7.1 - 11.0 MODERATE RISK >11.0 HIGH RISK Performed By: #### L IPID, CMP, T7, BNP, TSH #### [facility] [address] [address] [address] David Das Cholesterol [Mass/Vol] 120 mg/dL Normal <=200 [facility] Comment on above: Performed By: #### L IPID, CMP, T7, BNP, TSH #### [facility] [address] [address] [address] David Das Cholesterol in HDL [Mass/Vol] 54 mg/dL Normal 40-60 [facility] Comment on above: Performed By: #### L IPID, CMP, T7, BNP, TSH #### [facility] [address] [address] [address] David Das Cholesterol in LDL [Mass/Vol] 56.8 mg/dL Normal [facility] Comment on above: Performed By: #### L IPID, CMP, T7, BNP, TSH #### [facility] [address] [address] [address] David Das Cholesterol.total/Ch olesterol in HDL [Mass ratio] 2.2 {ratio} Normal [facility] Comment on above: Performed By: #### L IPID, CMP, T7, BNP, TSH #### [facility] [address] [address] [address] David aDs HDL NORMAL > or = 60 mg/dl - LOW CARDIOVASCULAR RISK <40 mg/dl - HIGH CARDIOVASCULAR RISK Normal [facility] Comment on above: Performed By: #### L IPID, CMP, T7, BNP, TSH #### [facility] [address] [address] [address] David Das LDL CALC NORMAL SEE BELOW Normal [facility] Comment on above: Result Comment: <100 mg/dl OPTIMAL 100 - 129 mg/dl NEAR OR ABOVE OPTIMAL 130 - 159 mg/dl BORDERLINE HIGH 160 - 189 mg/dl HIGH >190 mg/dl VERY HIGH Performed By: #### L IPID, CMP, T7, BNP, TSH #### [facility] [address] [address] [address] David Das Triglyceride [Mass/Vol] 46 mg/dL Normal <=150 [facility] Comment on above: Performed By: #### L IPID, CMP, T7, BNP, TSH #### [facility] [address] [address] [address] David Das VLDL CALC 9.2 mg/dL Normal [facility] Comment on above: Performed By: #### L IPID, CMP, T7, BNP, TSH #### [facility] [address] [address] [address] David Das PROF 14(COMP METB)on 022 Albumin [Mass/Vol] 4.1 g/dL Normal 3.4-5.0 [facility] Comment on above: Performed By: #### L IPID, CMP, T7, BNP, TSH #### [facility] [address] [address] [address] David Das Albumin/Globulin [Mass ratio] 1.2 {ratio} Normal [facility] Comment on above: Performed By: #### L IPID, CMP, T7, BNP, TSH #### [facility] [address] [address] [address] David Das ALP [Catalytic activity/Vol] 50 U/L Normal 46-116 [facility] Comment on above: Performed By: #### L IPID, CMP, T7, BNP, TSH #### [facility] [address] [address] [address] David Das ALT [Catalytic activity/Vol] 15 U/L Normal 14-59 [facility] Comment on above: Performed By: #### L IPID, CMP, T7, BNP, TSH #### [facility] [address] [address] [address] David Das Anion gap [Moles/Vol] 11.0 mmol/L Normal [facility] Comment on above: Performed By: #### L IPID, CMP, T7, BNP, TSH #### [facility] [address] [address] [address] David Das AST [Catalytic activity/Vol] 16 U/L Normal 15-37 [facility] Comment on above: Performed By: #### L IPID, CMP, T7, BNP, TSH #### [facility] [address] [address] [address] David Das Bilirubin [Mass/Vol] 0.5 mg/dL Normal 0.2-1.0 [facility] Comment on above: Performed By: #### L IPID, CMP, T7, BNP, TSH #### [facility] [address] [address] [address] David Das Calcium [Mass/Vol] 8.7 mg/dL Normal 8.5-10.1 [facility] Comment on above: Performed By: #### L IPID, CMP, T7, BNP, TSH #### [facility] [address] [address] [address] David Das Chloride [Moles/Vol] 104 mmol/L Normal 98-107 [facility] Comment on above: Performed By: #### L IPID, CMP, T7, BNP, TSH #### [facility] [address] [address] [address] David Das CO2 [Moles/Vol] 31.4 mmol/L Normal 21.0-32.0 [facility] Comment on above: Performed By: #### L IPID, CMP, T7, BNP, TSH #### [facility] [address] [address] [address] David Das Creatinine [Mass/Vol] 0.64 mg/dL Normal 0.55-1.02 [facility] Comment on above: Performed By: #### L IPID, CMP, T7, BNP, TSH #### [facility] [address] [address] [address] David Das EGFR-AF TRINIDADIAN >60 Normal >=60 [facility] Comment on above: Performed By: #### L IPID, CMP, T7, BNP, TSH #### [facility] [address] [address] [address] David Das EGFR-NON AF TRINIDADIAN >60 Normal >=60 [facility] Comment on above: Performed By: #### L IPID, CMP, T7, BNP, TSH #### [facility] [address] [address] [address] David Das Globulin (S) [Mass/Vol] 3.4 g/dL Normal [facility] Comment on above: Performed By: #### L IPID, CMP, T7, BNP, TSH #### [facility] [address] [place] [address] Dr. David Das Glucose [Mass/Vol] 92 mg/dL Normal 74-[address] [facility] Comment on above: Performed By: #### L IPID, CMP, T7, BNP, TSH #### [facility] [address] [place] [address] Dr. David Das Potassium [Moles/Vol] 4.4 mmol/L Normal 3.5-5.1 [facility] Comment on above: Performed By: #### L IPID, CMP, T7, BNP, TSH #### [facility] [address] [address] [address] David Das Protein [Mass/Vol] 7.5 g/dL Normal 6.4-8.[address] [facility] Comment on above: Performed By: #### L IPID, CMP, T7, BNP, TSH #### [facility] [address] [place] [address] Dr. David Das Sodium [Moles/Vol] 142 mmol/L Normal 136-[address] [facility] Comment on above: Performed By: #### L IPID, CMP, T7, BNP, TSH #### [facility] [address] [place] [address] Dr. David Das Urea nitrogen [Mass/Vol] 11.0 mg/dL Normal 7.0-18.0 [facility] Comment on above: Performed By: #### L IPID, CMP, T7, BNP, TSH #### [facility] [address] [place] [address] Dr. David Das Urea nitrogen/Creatinine [Mass ratio] 17.2 mg/mg Normal [facility] Comment on above: Performed By: #### L IPID, CMP, T7, BNP, TSH #### [facility] [address] [place] [address] Dr. David Das TSHon 11-03-2022 TSH 1.923 uIU/mL Normal 0.358-3.[address] [facility] Comment on above: Performed By: #### L IPID, CMP, T7, BNP, TSH #### [facility] [address] [place] [address] Dr. David Das Covid-19 PCR (CVDTB)on 05-17 SARS-CoV-2 (COVID-19) RNA BACILIO+probe Ql (Unsp spec) Detected Critically abnormal NOT DETECTED [facility] Comment on above: Result Comment: This test is not yet approved or cleared by the [place] FDA. When there are no FDA-approved or cleared tests available, and other criteria are met, FDA can make tests available under an emergency access mechanism called an Emergency Use Authorization (EUA). The EUA for this test is supported by the Repossession Agent of Health and Human Service's declaration that [...] used). Performed By: #### C VDTBH #### [facility] [address] [place] [address] Dr. David Das PAP ACOG PANEL 2: 21 to 29on 05-23-2022 . . Normal [facility] Comment on above: Performed By: #### L IPID, CMP, T7, BNP, TSH #### [facility] [address] [address] [address] David Das Age Gdln ACOG Testing 19- [facility] Comment on above: Performed By: #### L IPID, CMP, T7, BNP, TSH #### [facility] [address] [address] [address] David Das DIAGNOSIS: Comment [facility] Comment on above: Result Comment: NEGA TIVE FOR INTRAEPITHELIAL LESION OR MALIGNANCY. Performed By: #### L IPID, CMP, T7, BNP, TSH #### [facility] [address] [address] [address] David Das Methodology: Comment [facility] Comment on above: Result Comment: This liquid based ThinPrep(R) pap test was screened with the use of an image guided system. Performed By: #### L IPID, CMP, T7, BNP, TSH #### [facility] [address] [address] [address] David Das Note: Comment [facility] Comment on above: Result Comment: The [...] L IPID, CMP, T7, BNP, TSH #### [facility] [address] [address] [address] David Das Performed by: Comment [facility] Comment on above: Result Comment: Cayla Jay, Airfield Manager (ASCP) Performed By: #### L IPID, CMP, T7, BNP, TSH #### [facility] [address] [address] [address] David Das Reflex Criteria: Comment [facility] Comment on above: Result Comment: The HPV DNA reflex criteria were not met with this specimen result therefore, no HPV testing was performed. . Performed By: #### L IPID, CMP, T7, BNP, TSH #### [facility] [address], [place] [address] Dr. David Dsa Specimen adequacy: Comment Normal [facility] Comment on above: Result Comment: Sati sfactory for evaluation. Endocervical and/or squamous metaplastic cells (endocervical component) are present. Areas of partially obscuring inflammatory exudate are present. Performed By: #### L IPID, CMP, T7, BNP, TSH #### [facility] [address], [place] [address] Dr. David Das XR FOOT RT MIN 3 VIEWSon XR FOOT RT MIN 3 VIEWS IMAGES REVIEWED: XR FOOT RT MIN 3 VIEWS COMPARISON: None available. CLINICAL INDICATION: Pain, no injury. FINDINGS/IMPRESSION: Unremarkable radiographic appearance of the right foot. Electronically authenticated by: VIVIEN NOONAN Date: 2022-03-27 20:26 Normal [facility] Pathology Noteon 02-24-2022 Pathology Note [id number] #1.00CD:127 Normal [facility] Ambulatory Visit Summaryon 0 02-19-2022 Ambulatory [...] (irritable bowel syndrome) Orthostatic hypotension Scoliosis Normal [facility] General Surgery Office/Clini c Noteon 02-19-2022 [...] influenza virus vaccine, inactivated 07/2021 Recorded Normal [facility] Comment on above: Result Comment: Elec tronically Signed By: CHAMP FUENTES, Marleni Fletcher\Date and Time Signed: 02/19/22 17:00 EDT Facesheeton 02-12-2022 Facesheet [id number] #1.00CD:127 Normal [facility] BNPon 02-01-2022 Natriuretic peptide B (Bld) [Mass/Vol] 64.0 pg/mL Normal <=450.0 [facility] Comment on above: Performed By: #### L IPID, CMP, T7, BNP, TSH #### [facility] [address] [address] [address] David Das CBC AUTO DIFFon 02-01-2022 BASO # 0.0 103/ul Normal 0.0-0.1 [facility] Comment on above: Performed By: #### L IPID, CMP, T7, BNP, TSH #### [facility] [address] [address] [address] David Das Basophils/100 WBC (Bld) 0.4 % Normal 0.2-2.0 [facility] Comment on above: Performed By: #### L IPID, CMP, T7, BNP, TSH #### [facility] [address] [place] [address] Dr. David Das EO # 0.1 103/ul Normal 0.0-0.7 [facility] Comment on above: Performed By: #### L IPID, CMP, T7, BNP, TSH #### [facility] [address] [place] [address] Dr. David Das Eosinophils/100 WBC (Bld) 1.8 % Normal 0.9-7.0 [facility] Comment on above: Performed By: #### L IPID, CMP, T7, BNP, TSH #### [facility] [address] [place] [address] Dr. David Das Erythrocyte distribution width (RBC) [Ratio] 12.5 % Normal 11.0-15.0 [facility] Comment on above: Performed By: #### L IPID, CMP, T7, BNP, TSH #### [facility] [address] [place] [address] Dr. David Das Hematocrit (Bld) [Volume fraction] 43.6 % Normal 36.0-48.0 [facility] Comment on above: Performed By: #### L IPID, CMP, T7, BNP, TSH #### [facility] [address] [place] [address] Dr. David Das Hemoglobin (Bld) [Mass/Vol] 14.2 g/dL Normal 12.0-16.0 [facility] Comment on above: Performed By: #### L IPID, CMP, T7, BNP, TSH #### [facility] [address] [place] [address] Dr. David Das IG # 0.01 10e3/ul Normal 0.00-0.03 [facility] Comment on above: Performed By: #### L IPID, CMP, T7, BNP, TSH #### [facility] [address] [place] [address] Dr. David Das IG % 0.2 % Normal 0.0-0.5 [facility] Comment on above: Performed By: #### L IPID, CMP, T7, BNP, TSH #### [facility] [address] [place] [address] Dr. David Das LYMPH # 1.8 103/ul Normal 1.2-3.8 [facility] Comment on above: Performed By: #### L IPID, CMP, T7, BNP, TSH #### [facility] [address] [place] [address] Dr. David Das Lymphocytes/100 WBC (Bld) 32.0 % Normal 20.5-60.0 [facility] Comment on above: Performed By: #### L IPID, CMP, T7, BNP, TSH #### [facility] [address] [place] [address] Dr. David Das MANUAL DIFF REQ NO Normal [facility] Comment on above: Performed By: #### L IPID, CMP, T7, BNP, TSH #### [facility] [address] [place] [address] Dr. David Das MCH (RBC) [Entitic mass] 30.8 pg Normal 26.7-34.0 [facility] Comment on above: Performed By: #### L IPID, CMP, T7, BNP, TSH #### [facility] [address] [place] [address] Dr. David Das MCHC (RBC) [Mass/Vol] 32.6 g/dL Normal 29.9-35.2 [facility] Comment on above: Performed By: #### L IPID, CMP, T7, BNP, TSH #### [facility] [address] [place] [address] Dr. David Das MCV (RBC) [Entitic vol] 94.6 fL Normal 81.0-99.0 [facility] Comment on above: Performed By: #### L IPID, CMP, T7, BNP, TSH #### [facility] [address] [place] [address] Dr. David Das MONO # 0.4 103/ul Normal 0.3-0.8 [facility] Comment on above: Performed By: #### L IPID, CMP, T7, BNP, TSH #### [facility] [address] [place] [address] Dr. David Das Monocytes/100 WBC (Bld) 6.5 % Normal 1.7-12.0 [facility] Comment on above: Performed By: #### L IPID, CMP, T7, BNP, TSH #### [facility] [address] [place] [address] Dr. David Das NEUT # 3.3 103/ul Normal 1.4-6.5 [facility] Comment on above: Performed By: #### L IPID, CMP, T7, BNP, TSH #### [facility] [address] [place] [address] Dr. David Das Neutrophils/100 WBC (Bld) 59.1 % Normal 43.0-75.0 [facility] Comment on above: Performed By: #### L IPID, CMP, T7, BNP, TSH #### [facility] [address] [place] [address] Dr. David Das Platelet mean volume (Bld) [Entitic vol] 10.5 fL Normal 9.5-13.5 [facility] Comment on above: Performed By: #### L IPID, CMP, T7, BNP, TSH #### [facility] [address] [place] [address] Dr. David Das PLT 195 103/ul Normal 150-450 [facility] Comment on above: Performed By: #### L IPID, CMP, T7, BNP, TSH #### [facility] [address] [place] [address] Dr. David Das RBC 4.61 106/ul Normal 4.20-5.40 [facility] Comment on above: Performed By: #### L IPID, CMP, T7, BNP, TSH #### [facility] [address] [place] [address] Dr. David Das WBC 5.7 103/ul Normal 4.0-11.0 [facility] Comment on above: Performed By: #### L IPID, CMP, T7, BNP, TSH #### [facility] [address] [place] [address] Dr. David Das FREE THYROXINE INDEX T7on FTI 2.41 Normal [facility] Comment on above: Performed By: #### L IPID, CMP, T7, BNP, TSH #### [facility] [address] [address] [address] David Das T3U 33.0 % Normal 23.5-40.5 [facility] Comment on above: Performed By: #### L IPID, CMP, T7, BNP, TSH #### [facility] [address] [address] [address] David Das T4 [Mass/Vol] 7.30 ug/dL Normal 5.53-11.00 [facility] Comment on above: Performed By: #### L IPID, CMP, T7, BNP, TSH #### [facility] [address] [address] [address] David Das GLYCOHEMOGLOBIN A1Con 2021 ADA RECOMMENDATION ADA THERAPEUTIC TARGET 6.0 - 7.0 ACTION SUGGESTED > 7.0 Normal [facility] Comment on above: Performed By: #### A 1C #### [facility] [address] [address] [address] David Das Glucose [Mass/Vol] 100 mg/dL Normal [facility] Comment on above: Performed By: #### A 1C #### [facility] [address] [address] [address] David Das HbA1c (Bld) [Mass fraction] 5.1 % Normal <=6.0 [facility] Comment on above: Performed By: #### A 1C #### [facility] [address] [address] [address] David Das IRONon 02-01-2022 Iron [Mass/Vol] 101.0 ug/dL Normal 37.0-170.0 [facility] Comment on above: Performed By: #### L IPID, CMP, T7, BNP, TSH #### [facility] [address] [address] [address] David Das LIPID PROFILEon 02-01-2022 CHOL-HDL RATIO NORM SEE BELOW Normal [facility] Comment on above: Result Comment: 3.3 - 4.4 LOW RISK 4.4 - 7.1 AVERAGE RISK 7.1 - 11.0 MODERATE RISK >11.0 HIGH RISK Performed By: #### L IPID, CMP, T7, BNP, TSH #### [facility] [address] [address] [address] David Das Cholesterol [Mass/Vol] 123 mg/dL Normal <=200 [facility] Comment on above: Performed By: #### L IPID, CMP, T7, BNP, TSH #### [facility] [address] [address] [address] David Das Cholesterol in HDL [Mass/Vol] 44 mg/dL Normal 40-60 [facility] Comment on above: Performed By: #### L IPID, CMP, T7, BNP, TSH #### [facility] [address] [address] [address] David Das Cholesterol in LDL [Mass/Vol] 63.2 mg/dL Normal [facility] Comment on above: Performed By: #### L IPID, CMP, T7, BNP, TSH #### [facility] [address] [address] [address] David Das Cholesterol.total/Ch olesterol in HDL [Mass ratio] 2.8 {ratio} Normal [facility] Comment on above: Performed By: #### L IPID, CMP, T7, BNP, TSH #### [facility] [address] [address] [address] David Das HDL NORMAL > or = 60 mg/dl - LOW CARDIOVASCULAR RISK <40 mg/dl - HIGH CARDIOVASCULAR RISK Normal [facility] Comment on above: Performed By: #### L IPID, CMP, T7, BNP, TSH #### [facility] [address] [address] [address] David Das LDL CALC NORMAL SEE BELOW Normal [facility] Comment on above: Result Comment: <100 mg/dl OPTIMAL 100 - 129 mg/dl NEAR OR ABOVE OPTIMAL 130 - 159 mg/dl BORDERLINE HIGH 160 - 189 mg/dl HIGH >190 mg/dl VERY HIGH Performed By: #### L IPID, CMP, T7, BNP, TSH #### [facility] [address] [address] [address] David Das Triglyceride [Mass/Vol] 79 mg/dL Normal <=150 [facility] Comment on above: Performed By: #### L IPID, CMP, T7, BNP, TSH #### [facility] [address] [address] [address] David Das VLDL CALC 15.8 mg/dL Normal [facility] Comment on above: Performed By: #### L IPID, CMP, T7, BNP, TSH #### [facility] [address] [address] [address] David Das PROF 14(COMP METB)on 022 Albumin [Mass/Vol] 3.9 g/dL Normal 3.4-5.0 [facility] Comment on above: Performed By: #### L IPID, CMP, T7, BNP, TSH #### [facility] [address] [address] [address] David Das Albumin/Globulin [Mass ratio] 1.2 {ratio} Normal [facility] Comment on above: Performed By: #### L IPID, CMP, T7, BNP, TSH #### [facility] [address] [address] [address] David Das ALP [Catalytic activity/Vol] 49 U/L Normal 46-116 [facility] Comment on above: Performed By: #### L IPID, CMP, T7, BNP, TSH #### [facility] [address] [address] [address] David Das ALT [Catalytic activity/Vol] 13 U/L Critically low 14-59 [facility] Comment on above: Performed By: #### L IPID, CMP, T7, BNP, TSH #### [facility] [address] [address] [address] David Das Anion gap [Moles/Vol] 12.6 mmol/L Normal [facility] Comment on above: Performed By: #### L IPID, CMP, T7, BNP, TSH #### [facility] [address] [place] [address] Dr. David Das AST [Catalytic activity/Vol] 10 U/L Critically low 15-37 [facility] Comment on above: Performed By: #### L IPID, CMP, T7, BNP, TSH #### [facility] [address] [address] [address] David Das Bilirubin [Mass/Vol] 0.4 mg/dL Normal 0.2-1.3 [facility] Comment on above: Performed By: #### L IPID, CMP, T7, BNP, TSH #### [facility] [address] [place] [address] Dr. David Das Calcium [Mass/Vol] 8.7 mg/dL Normal 8.5-10.[address] [facility] Comment on above: Performed By: #### L IPID, CMP, T7, BNP, TSH #### [facility] [address] [place] [address] Dr. David Das Chloride [Moles/Vol] 106 mmol/L Normal 98-107 [facility] Comment on above: Performed By: #### L IPID, CMP, T7, BNP, TSH #### [facility] [address] [place] [address] Dr. David Das CO2 [Moles/Vol] 27.9 mmol/L Normal 22.0-30.0 [facility] Comment on above: Performed By: #### L IPID, CMP, T7, BNP, TSH #### [facility] [address] [place] [address] Dr. David Das Creatinine [Mass/Vol] 0.69 mg/dL Normal 0.52-1.04 [facility] Comment on above: Performed By: #### L IPID, CMP, T7, BNP, TSH #### [facility] [address] [place] [address] Dr. David Das EGFR-AF TRINIDADIAN >60 Normal >=60 [facility] Comment on above: Performed By: #### L IPID, CMP, T7, BNP, TSH #### [facility] [address] [place] [address] Dr. David Das EGFR-NON AF TRINIDADIAN >60 Normal >=60 [facility] Comment on above: Performed By: #### L IPID, CMP, T7, BNP, TSH #### [facility] [address] [address] [address] David Das Globulin (S) [Mass/Vol] 3.2 g/dL Normal [facility] Comment on above: Performed By: #### L IPID, CMP, T7, BNP, TSH #### [facility] [address] [address] [address] David Das Glucose [Mass/Vol] 104 mg/dL Normal 74-[address] [facility] Comment on above: Performed By: #### L IPID, CMP, T7, BNP, TSH #### [facility] [address] [place] [address] Dr. David Das Potassium [Moles/Vol] 4.5 mmol/L Normal 3.4-5.0 [facility] Comment on above: Performed By: #### L IPID, CMP, T7, BNP, TSH #### [facility] [address] [place] [address] Dr. David Das Protein [Mass/Vol] 7.1 g/dL Normal 6.1-8.[address] [facility] Comment on above: Performed By: #### L IPID, CMP, T7, BNP, TSH #### [facility] [address] [place] [address] Dr. David Das Sodium [Moles/Vol] 142 mmol/L Normal 137-[address] [facility] Comment on above: Performed By: #### L IPID, CMP, T7, BNP, TSH #### [facility] [address] [address] [address] David Das Urea nitrogen [Mass/Vol] 12.0 mg/dL Normal 7.0-18.0 [facility] Comment on above: Performed By: #### L IPID, CMP, T7, BNP, TSH #### [facility] [address] [place] [address] Dr. David Das Urea nitrogen/Creatinine [Mass ratio] 17.4 mg/mg Normal [facility] Comment on above: Performed By: #### L IPID, CMP, T7, BNP, TSH #### [facility] [address] [address] [address] David Das TSHon 02-01-2022 TSH 1.718 uIU/mL Normal 0.470-4.680 [facility] Comment on above: Performed By: #### L IPID, CMP, T7, BNP, TSH #### [facility] [address] [address] [address] David Das TSH RANGE SEE BELOW Normal [facility] Comment on above: Result Comment: <0.3 4 UIU/ml HYPERTHYROID 0.34-5.60 UIU/ml EUTHYROID >5.60 UIU/ml HYPOTHYROID Performed By: #### L IPID, CMP, T7, BNP, TSH #### [facility] [address] [address] [address] David Das Physician Referralon 022 Physician Referral [id number] #[id number] Normal [facility] Covid-19 PCR (CVDTB)on 12-18 SARS-CoV-2 (COVID-19) RNA BACILIO+probe Ql (Unsp spec) Not detected Normal NOT DETECTED [facility] Comment on above: Result Comment: This test is not yet approved or cleared by the [place] FDA. When there are no FDA-approved or cleared tests available, and other criteria are met, FDA can make tests available under an emergency access mechanism called an Emergency Use Authorization (EUA). The EUA for this test is supported by the [place] of Health and Human Service's (HHS's) declaration [...] SARS-CoV-2. Performed By: #### C VDTB #### [facility] [address] [place] [address] Dr. David Das Encounters Encounter Date Encounter [...] EST Routine [facility] [address] [place] [id number] Gonzales Cutler, DO [address] [place] [address] [facility] Start: 07-17-2023 Influenza vaccination Influenza Vacc ine (#1) [facility] Start: 2023 Screening for malign ant neoplasm of cervix [facility] Start: 2014 Screening for malign ant neoplasm of cervix Pap Smear [facility] Immunizations Immunization Date Immunization Notes Care Provider Fa cility 08-03-2022 influenza virus vacc ine, unspecified formulation Gonzales Cutler DO Work Phone: [facility] Payers Date Payer Category Payer Unknown BCBS BCBS xxxxxx [id number] 2023-Present [phone] [address] [place] [address] [id number] 2023 Unknown [id number] 1993 Unknown [id number] 2..[id number] 1993 Unknown [id number] 2.840.1.737229.3.579.2.593 1993 Unknown [id number] 2..840.1.675731.3.579.2.593 1993 Unknown [id number] 2..840.1.827322.3.579.2.593 1993 Unknown [id number] 2.16.840.1.259543.3.579.2.593 1993 Unknown [id number] 2.16.840.1.361891.3.579.2.593 1993 Unknown [id number] 2.16.840.1.291986.3.579.2.593 1993 Unknown [id number] 2.16.840.1.393541.3.579.2.593 1993 Unknown [id number] 2.16.840.1.269176.3.579.2.593 1993 Unknown [id number] 2.16.840.1.108568.3.579.2.1259 1993 Unknown [id number] 2.16840.1.542957.3.579.2.1259 1993 Unknown [id number] 2.16.840.1.900220.3.579.2.1259 1993 Unknown [id number] 2.16.840.1.319430.3.579.2.1259 1993 Unknown [id number] 2.16.840.1.992692.3.579.2.1259 1993 Unknown [id number] 2.16840.1.854456.3.579.2.1259 1993 Unknown [id number] 2.16840.1.229128.3.579.2.1259 1959 Self-pay 1959 Unknown [id number] 1959 Unknown [id number] 1959 Unknown [id number] 1959 Unknown [id number] Social History Date Type Detail Facility Start: 07-01-2023 Tobacco smoking stat [facility] Never smoked tobacco [facility] Start: 07-01-2023 History of Social function [facility] Start: 07-01-2023 Tobacco use panel [facility] Start: 09-28-2023 [facility] Start: 1995 Sex Assigned At Female [facility] Start: 05-08-2023 Gender identity Identifies as female gender (finding) [facility] Start: 05-08-2023 Sexual orientation Heterosexual (arthur lorie) [facility] Healthcare Goals Date Patient Goal Desired [...] Status influenza virus vaccine, inactivated 07/2021 Recorded [facility] Comment on above: Result Comment: Elec [...] content) DATE CREATED AUTHOR 02/25/2022 Albaro Rodriguez [facility] DATE CREATED AUTHOR AUTHOR'S ORGANIZ ATION 11/13/2022 [facility] DATE CREATED AUTHOR AUTHOR'S ORGANIZ ATION 04/26/2024 [facility] FOR RECORDS PERTAINING TO PATIENTS WHO [...] BE BASED ON THE PRIMARY CLINICAL RECORDS. [facility] [employer] provides no warranty or guarantee of the accuracy or completeness of information in this document.
--- NOTE | 2024-05-10 14:05 | US_ITS ---
[address] [address] Patient Name: ABEL ROBISON MRN: [id number] date: 1995 Sex: F Assigned Patient Location: [facility] Current Patient Location: [facility] Accession/Order Number: [id number] Exam Date: 05/10/2024 14:12 Report Date: 05/10/2024 14:51 At the request of: GONZALES LEON Procedure: US OB BPP w non-stress EXAMINATION: US OB BPP w non-stress HISTORY: Surrogate Z33.3 COMPARISON: 07/06/2024 TECHNIQUE: Ultrasound biophysical profile was performed in the radiology department. FINDINGS: BREATHING MOVEMENTS: 2 GROSS BODY MOVEMENTS: 2 TONE: 2 QUALITATIVE AMNIOTIC FLUID VOLUME: 2 PRESENTATION: CEPHALIC HEART RATE: 127.92 bpm AMNIOTIC FLUID VOLUME: 12.2 cm GESTATIONAL AGE: 34 weeks 1 day US/US OB BPP w non-stress IMPRESSION: Total biophysical profile score: 8 Electronically authenticated by: LINA MODI Date: 05/10/2024 14:51
[2024-05-10 14:34] VITALS: BP 101/59; PULSE 82
== END 2024-05-10 14:58 | disposition home or self-care (01) ==
LOC: US 07:04 → FBC 14:01
PROVIDERS: Visit Provider Obstetrics & Gynecology
DX: Z33.3 Pregnant state, gestational carrier (principal); Z3A.34 34 weeks gestation of pregnancy
CPT/HCPCS: 76818

== ENCOUNTER 2024-05-17 07:04 | Outpatient (OUT) | payer BC, SELFPAY ==
--- OUTSIDE RECORDS SUMMARY | 2024-05-17 07:06 | XMS_ITS ---
Patient Summarization (C-CDA 2.1 CCD) Created on: May 17, 2024 ABEL ROBISON~ENRIQUETA ROMAN : 1995 Sex: Female Author Organization Sample organization Care Team Providers Care Relay Engineer Name Role Phone TARAS, DR EARLY Admitting [...] Unavailable MARINE, DR COREY Keen Admitting Unavailable MARINE, DR COREY Keen Attending Unavailable YAROSMARLENI Jacques Consulting Unavailable SHAISTA, VIVIEN Consulting Unavailable KACEYY, DR GOLD Admitting Unavailable HOY, DR GOLD Attending Unavailable HOY, DR GOLD Primary Care Unavailable HOY, DR GOLD Admitting Unavailable HOY, DR GOLD Attending Unavailable HOY, DR GOLD Primary Care Unavailable HOY, DR GOLD Consulting Unavailable HOY, DR GOLD Admjanett Unavailable HOY, DR GOLD Attending Unavailable HOY, [...] CUTLER Attending Unavailable GONZALES CUTLER Attending Unavailable ALEXIS ORTIZ Attending Unavailable GONZALES CUTLER Attending Unavailable GONZALES CUTLER Attending Unavailable OMAYRA, GONZALES Attending Unavailable Encounters Encounter Date Encounter Type Care Provider [...] Facility:[facility] Start: 11-04-2022 End: 11-04-[address] NENKA GRAJEDA Facility:[facility] Start: 11-03-2022 End: 11-04-2022 ambulatory [...] End: 01-13-[address] ALLA BEATTY Facility:[facility] Goals Date Patient Goal Desired Activity /State Personal health goal Immunizations Immunization Date Immunization Notes Care Provider Debbie chamorro 08-03-2022 influenza virus vacc ine, unspecified formulation Gonzales Cutler DO Work Phone: [facility] Medications Current Medications Medication Drug Class(es) Dates [...] vomiting 30 tablet 2 12/09/2023 01/08/2024 Active Dgprlfbf-Gsk-Il-FA ( 1 + IRON PO) (1 source) Mliszjog-Hcs-Ix-FA ( 1 + IRON PO) Take 1 each by mouth in the morning. 0 Active Payers Date Payer Category Payer Unknown BCBS BCBS xxxxxx [id number] 2023-Present [phone] [address] [place] [address] [id number] 2023 Unknown [id number] 1995 Unknown [id number] [id number] 1995 Unknown [id number] 2.16.840.1.239421.3.579.2.593 1995 Unknown [id number] 2.16.840.1.281716.3.579.2.593 1993 Unknown [id number] 2.16.840.1.207033.3.579.2.593 1993 Unknown [id number] 2.16.840.1.785981.3.579.2.593 1993 Unknown [id number] 2.16.840.1.133321.3.579.2.593 1993 Unknown [id number] 2.16.840.1.234477.3.579.2.593 1993 Unknown [id number] 2.16.840.1.939755.3.579.2.593 1993 Unknown [id number] 2.16.840.1.087017.3.579.2.593 1993 Unknown [id number] 2.16.840.1.354790.3.579.2.1259 1993 Unknown [id number] 2.16.840.1.222625.3.579.2.1259 1993 Unknown [id number] 2.16.840.1.590755.3.579.2.1259 1993 Unknown [id number] 2.16.840.1.612873.3.579.2.1259 1993 Unknown [id number] 2.16.840.1.499285.3.579.2.1259 1993 Unknown [id number] 2.16.840.1.932202.3.579.2.1259 1993 Unknown [id number] 2.16.840.1.539165.3.579.2.1259 1993 Unknown [id number] 2.16.840.1.083936.3.579.2.1259 1959 Self-pay 1959 Unknown [id number] 1959 Unknown [id number] 1959 Unknown [id number] 1959 Unknown [id number] Plan of Treatment Date Care Activity Detail Author Start: 01-06-2024 End: 01-06-2024 Patient encounter procedure 01/06/2024 2:10 PM EST Routine [facility] [address] [place] [address] [place] [id number] Gonzales Cutler, DO [address] [place] [address] [facility] Start: 07-17-2023 Influenza vaccination Influenza Vacc ine (#1) [facility] Start: 2023 Screening for malign ant neoplasm of cervix [facility] Start: 2014 Screening for malign ant neoplasm of cervix Pap Smear [facility] Problems Active Problems Problem Classification Problem Date [...] [CONTACT W/AND (SUSP) EXPOS COVID-19] Onset: 06-04-2022 Procedures Date Procedure Procedure Detail Performing Clinician Start: 12-28-2023 ALL CBC WITH AUTO DIFF Gonzales Cutler DO Work Phone: Results Test Name Value Interpretation Reference Range Facility ALL CBC WITH AUTO DIFFon BASOPHILS ABSOLUTE AUTO 0.0 [facility] Basophils/100 WBC (Bld) 0.3 % 0.2 - 2.0 % [facility] Eosinophils/100 WBC (Bld) 0.6 % Low 0.9 - 7.0 % [facility] Erythrocyte distribution width (RBC) [Ratio] 13.3 % 11.0 - 15.0 % [facility] Hematocrit (Bld) [Volume fraction] 36.6 % 36.0 - 48.0 % [facility] Hemoglobin (Bld) [Mass/Vol] 12.2 g/dL 12.0 - 16.0 g/dL [facility] IMMATURE GRANULOCYTES ABS AUTO 0.04 High [facility] Immature granulocytes/100 WBC (Bld) 0.5 % 0.0 - 0.5 % [facility] Interpretation and review of laboratory results Abnormal [facility] LYMPHOCYTES ABSOLUTE AUTO 2.0 [facility] Lymphocytes/100 WBC (Bld) 23.3 % 20.5 - 60.0 % [facility] MCH (RBC) [Entitic mass] 31.5 pg 26.7 - 34.0 pg [facility] MCHC (RBC) [Mass/Vol] 33.3 g/dL 29.9 - 35.2 g/dL [facility] MCV (RBC) [Entitic vol] 94.6 fL 81.0 - 99.0 fL [facility] MONOCYTES ABSOLUTE AUTO 0.5 [facility] Monocytes/100 WBC (Bld) 6.3 % 1.7 - 12.0 % [facility] NEUTROPHILS ABSOLUTE AUTO 6.0 [facility] Neutrophils/100 WBC (Bld) 69.0 % 43.0 - 75.0 % [facility] Platelet mean volume (Bld) [Entitic vol] 11.3 fL 9.5 - 13.5 fL [facility] EO # 0.1 [facility] PLT 208 [facility] RBC 3.87 Low [facility] WBC 8.6 [facility] CHLAMYDIA/GONOCOCCUS BACILIO (SW AB/URINE/PAPon 11-07-2022 Chlamydia trachomatis, BACILIO Negative Normal Negative [facility] Comment on above: Performed By: #### L IPID, CMP, T7, BNP, TSH #### [facility] [address] [address] [address] David Das Neisseria gonorrhoeae, BACILIO Negative Normal Negative [facility] Comment on above: Performed By: #### L IPID, CMP, T7, BNP, TSH #### [facility] [address] [place], [place] [address] Dr. David Das US PELVIS AND TRANSVAGon [...] Date: 2022-11-06 17:13 Normal [facility] VAGINITIS/VAGINOSIS DNA PROB Farhan 11-06-2022 Angelia species Negative Normal Negative [facility] Comment on above: Performed By: #### V AGINT #### [facility] [address] [place] [address] Dr. David Das Gardnerella vaginalis Negative Normal Negative [facility] Comment on above: Performed By: #### V AGINT #### [facility] [address] [address] [address] David Das Trichomonas vaginalis Negative Normal Negative [facility] Comment on above: Performed By: #### V AGINT #### [facility] [address] [address] [address] David Das INSULINon 11-04-2022 Insulin 17.4 uIU/mL Normal 2.6-24.9 [facility] Comment on above: Performed By: #### I NSULIN #### [facility] [address] [address] [address] David Das CBC AUTO DIFFon 11-03-2022 BASO # 0.0 103/ul Normal 0.0-0.1 [facility] Comment on above: Performed By: #### L IPID, CMP, T7, BNP, TSH #### [facility] [address] [place] [address] Dr. David Das Basophils/100 WBC (Bld) 0.4 % Normal 0.2-2.0 [facility] Comment on above: Performed By: #### L IPID, CMP, T7, BNP, TSH #### [facility] [address] [place] [address] Dr. David Das EO # 0.1 103/ul Normal 0.0-0.7 [facility] Comment on above: Performed By: #### L IPID, CMP, T7, BNP, TSH #### [facility] [address] [place] [address] Dr. David Das Eosinophils/100 WBC (Bld) 1.4 % Normal 0.9-7.0 [facility] Comment on above: Performed By: #### L IPID, CMP, T7, BNP, TSH #### [facility] [address] [place] [address] Dr. David Das Erythrocyte distribution width (RBC) [Ratio] 12.4 % Normal 11.0-15.0 [facility] Comment on above: Performed By: #### L IPID, CMP, T7, BNP, TSH #### [facility] [address] [place] [address] Dr. David Das Hematocrit (Bld) [Volume fraction] 43.8 % Normal 36.0-48.0 [facility] Comment on above: Performed By: #### L IPID, CMP, T7, BNP, TSH #### [facility] [address] [place] [address] Dr. David Das Hemoglobin (Bld) [Mass/Vol] 14.6 g/dL Normal 12.0-16.0 [facility] Comment on above: Performed By: #### L IPID, CMP, T7, BNP, TSH #### [facility] [address] [place] [address] Dr. David Das IG # 0.01 10e3/ul Normal 0.00-0.03 [facility] Comment on above: Performed By: #### L IPID, CMP, T7, BNP, TSH #### [facility] [address] [place] [address] Dr. David Das IG % 0.2 % Normal 0.0-0.5 [facility] Comment on above: Performed By: #### L IPID, CMP, T7, BNP, TSH #### [facility] [address] [place] [address] Dr. David Das LYMPH # 1.8 103/ul Normal 1.2-3.8 [facility] Comment on above: Performed By: #### L IPID, CMP, T7, BNP, TSH #### [facility] [address] [place] [address] Dr. David Das Lymphocytes/100 WBC (Bld) 33.3 % Normal 20.5-60.0 [facility] Comment on above: Performed By: #### L IPID, CMP, T7, BNP, TSH #### [facility] [address] [place] [address] Dr. David Das MANUAL DIFF REQ NO Normal [facility] Comment on above: Performed By: #### L IPID, CMP, T7, BNP, TSH #### [facility] [address] [place] [address] Dr. David Das MCH (RBC) [Entitic mass] 30.7 pg Normal 26.7-34.0 [facility] Comment on above: Performed By: #### L IPID, CMP, T7, BNP, TSH #### [facility] [address] [place] [address] Dr. David Das MCHC (RBC) [Mass/Vol] 33.3 g/dL Normal 29.9-35.2 [facility] Comment on above: Performed By: #### L IPID, CMP, T7, BNP, TSH #### [facility] [address] [place] [address] Dr. David Das MCV (RBC) [Entitic vol] 92.0 fL Normal 81.0-99.0 [facility] Comment on above: Performed By: #### L IPID, CMP, T7, BNP, TSH #### [facility] [address] [place] [address] Dr. David Das MONO # 0.4 103/ul Normal 0.3-0.8 [facility] Comment on above: Performed By: #### L IPID, CMP, T7, BNP, TSH #### [facility] [address] [place] [address] Dr. David Das Monocytes/100 WBC (Bld) 7.6 % Normal 1.7-12.0 [facility] Comment on above: Performed By: #### L IPID, CMP, T7, BNP, TSH #### [facility] [address] [place] [address] Dr. David Das NEUT # 3.2 103/ul Normal 1.4-6.5 [facility] Comment on above: Performed By: #### L IPID, CMP, T7, BNP, TSH #### [facility] [address] [place] [address] Dr. David Das Neutrophils/100 WBC (Bld) 57.1 % Normal 43.0-75.0 [facility] Comment on above: Performed By: #### L IPID, CMP, T7, BNP, TSH #### [facility] [address] [place] [address] Dr. David Das Platelet mean volume (Bld) [Entitic vol] 10.5 fL Normal 9.5-13.5 [facility] Comment on above: Performed By: #### L IPID, CMP, T7, BNP, TSH #### [facility] [address] [place] [address] Dr. David Das PLT 200 103/ul Normal 150-450 [facility] Comment on above: Performed By: #### L IPID, CMP, T7, BNP, TSH #### [facility] [address] [place] [address] Dr. David Das RBC 4.76 106/ul Normal 4.20-5.40 [facility] Comment on above: Performed By: #### L IPID, CMP, T7, BNP, TSH #### [facility] [address] [place] [address] Dr. David Das WBC 5.5 103/ul Normal 4.0-11.0 [facility] Comment on above: Performed By: #### L IPID, CMP, T7, BNP, TSH #### [facility] [address] [address] [address] David Das FREE THYROXINE INDEX T7on FTI 2.38 Normal 1.30-4.50 [facility] Comment on above: Performed By: #### L IPID, CMP, T7, BNP, TSH #### [facility] [address] [place] [address] Dr. David Das T3U 33.0 % Normal 30.0-39.0 [facility] Comment on above: Performed By: #### L IPID, CMP, T7, BNP, TSH #### [facility] [address] [place] [address] Dr. David Das T4 [Mass/Vol] 7.20 ug/dL Normal 4.80-13.90 [facility] Comment on above: Performed By: #### L IPID, CMP, T7, BNP, TSH #### [facility] [address] [place] [address] Dr. David Das GLYCOHEMOGLOBIN A1Con 2021 ADA RECOMMENDATION SEE BELOW Normal [facility] Comment on above: Result Comment: ADA RECOMMENDED LIMIT 4.0 - 6.0 ADA THERAPEUTIC TARGET < 7.0 ACTION SUGGESTED > 7.0 Performed By: #### L IPID, CMP, T7, BNP, TSH #### [facility] [address] [place] [address] Dr. David Das Glucose [Mass/Vol] 103 mg/dL Normal [facility] Comment on above: Performed By: #### L IPID, CMP, T7, BNP, TSH #### [facility] [address] [place] [address] Dr. David Das HbA1c (Bld) [Mass fraction] 5.2 % Normal 4.5-6.2 [facility] Comment on above: Performed By: #### L IPID, CMP, T7, BNP, TSH #### [facility] [address] [place] [address] Dr. David Das IRONon 11-03-2022 Iron [Mass/Vol] 117.0 ug/dL Normal 50.0-170.0 [facility] Comment on above: Performed By: #### L IPID, CMP, T7, BNP, TSH #### [facility] [address] [address] [address] David Das LIPID PROFILEon 11-03-2022 CHOL-HDL RATIO NORM SEE BELOW Normal [facility] Comment on above: Result Comment: 3.3 - 4.4 LOW RISK 4.4 - 7.1 AVERAGE RISK 7.1 - 11.0 MODERATE RISK >11.0 HIGH RISK Performed By: #### L IPID, CMP, T7, BNP, TSH #### [facility] [address] [address] [address] David Das Cholesterol [Mass/Vol] 120 mg/dL Normal <=200 [facility] Comment on above: Performed By: #### L IPID, CMP, T7, BNP, TSH #### [facility] [address] [address] [address] David Das Cholesterol in HDL [Mass/Vol] 54 mg/dL Normal 40-60 [facility] Comment on above: Performed By: #### L IPID, CMP, T7, BNP, TSH #### [facility] [address] [address] [address] David Das Cholesterol in LDL [Mass/Vol] 56.8 mg/dL Normal [facility] Comment on above: Performed By: #### L IPID, CMP, T7, BNP, TSH #### [facility] [address] [address] [address] David Das Cholesterol.total/Ch olesterol in HDL [Mass ratio] 2.2 {ratio} Normal [facility] Comment on above: Performed By: #### L IPID, CMP, T7, BNP, TSH #### [facility] [address] [address] [address] David Das HDL NORMAL > or = 60 mg/dl - LOW CARDIOVASCULAR RISK <40 mg/dl - HIGH CARDIOVASCULAR RISK Normal [facility] Comment on above: Performed By: #### L IPID, CMP, T7, BNP, TSH #### [facility] [address] [address] [address] David Das LDL CALC NORMAL SEE BELOW Normal [facility] Comment on above: Result Comment: <100 mg/dl OPTIMAL 100 - 129 mg/dl NEAR OR ABOVE OPTIMAL 130 - 159 mg/dl BORDERLINE HIGH 160 - 189 mg/dl HIGH >190 mg/dl VERY HIGH Performed By: #### L IPID, CMP, T7, BNP, TSH #### [facility] [address] [address] [address] David Das Triglyceride [Mass/Vol] 46 mg/dL Normal <=150 [facility] Comment on above: Performed By: #### L IPID, CMP, T7, BNP, TSH #### [facility] [address] [address] [address] David Das VLDL CALC 9.2 mg/dL Normal [facility] Comment on above: Performed By: #### L IPID, CMP, T7, BNP, TSH #### [facility] [address] [address] [address] David Das PROF 14(COMP METB)on 11-03- 022 Albumin [Mass/Vol] 4.1 g/dL Normal 3.4-5.0 [facility] Comment on above: Performed By: #### L IPID, CMP, T7, BNP, TSH #### [facility] [address] [address] [address] David Das Albumin/Globulin [Mass ratio] 1.2 {ratio} Normal [facility] Comment on above: Performed By: #### L IPID, CMP, T7, BNP, TSH #### [facility] [address] [address] [address] David Das ALP [Catalytic activity/Vol] 50 U/L Normal 46-116 [facility] Comment on above: Performed By: #### L IPID, CMP, T7, BNP, TSH #### [facility] [address] [address] [address] David Das ALT [Catalytic activity/Vol] 15 U/L Normal 14-59 [facility] Comment on above: Performed By: #### L IPID, CMP, T7, BNP, TSH #### [facility] [address] [place] [address] Dr. David Das Anion gap [Moles/Vol] 11.0 mmol/L Normal [facility] Comment on above: Performed By: #### L IPID, CMP, T7, BNP, TSH #### [facility] [address] [place] [address] Dr. David Das AST [Catalytic activity/Vol] 16 U/L Normal 15-37 [facility] Comment on above: Performed By: #### L IPID, CMP, T7, BNP, TSH #### [facility] [address] [address] [address] David Das Bilirubin [Mass/Vol] 0.5 mg/dL Normal 0.2-1.0 [facility] Comment on above: Performed By: #### L IPID, CMP, T7, BNP, TSH #### [facility] [address] [place] [address] Dr. David Das Calcium [Mass/Vol] 8.7 mg/dL Normal 8.5-10.1 [facility] Comment on above: Performed By: #### L IPID, CMP, T7, BNP, TSH #### [facility] [address] [place] [address] Dr. David Das Chloride [Moles/Vol] 104 mmol/L Normal 98-107 [facility] Comment on above: Performed By: #### L IPID, CMP, T7, BNP, TSH #### [facility] [address] [place] [address] Dr. David Das CO2 [Moles/Vol] 31.4 mmol/L Normal 21.0-32.0 [facility] Comment on above: Performed By: #### L IPID, CMP, T7, BNP, TSH #### [facility] [address] [place] [address] Dr. David Das Creatinine [Mass/Vol] 0.64 mg/dL Normal 0.55-1.02 [facility] Comment on above: Performed By: #### L IPID, CMP, T7, BNP, TSH #### [facility] [address] [place] [address] Dr. David Das EGFR-AF [place] >60 Normal >=60 [facility] Comment on above: Performed By: #### L IPID, CMP, T7, BNP, TSH #### [facility] [address] [address] [address] David Das EGFR-NON AF [place] >60 Normal >=60 [facility] Comment on above: Performed By: #### L IPID, CMP, T7, BNP, TSH #### [facility] [address] [address] [address] David Das Globulin (S) [Mass/Vol] 3.4 g/dL Normal [facility] Comment on above: Performed By: #### L IPID, CMP, T7, BNP, TSH #### [facility] [address] [place] [address] Dr. David Das Glucose [Mass/Vol] 92 mg/dL Normal 74-106 [facility] Comment on above: Performed By: #### L IPID, CMP, T7, BNP, TSH #### [facility] [address] [address] [address] David Das Potassium [Moles/Vol] 4.4 mmol/L Normal 3.5-5.1 [facility] Comment on above: Performed By: #### L IPID, CMP, T7, BNP, TSH #### [facility] [address] [place] [address] Dr. David Das Protein [Mass/Vol] 7.5 g/dL Normal 6.4-8.2 [facility] Comment on above: Performed By: #### L IPID, CMP, T7, BNP, TSH #### [facility] [address] [address] [address] David Das Sodium [Moles/Vol] 142 mmol/L Normal 136-145 [facility] Comment on above: Performed By: #### L IPID, CMP, T7, BNP, TSH #### [facility] [address] [address] [address] David Das Urea nitrogen [Mass/Vol] 11.0 mg/dL Normal 7.0-18.0 [facility] Comment on above: Performed By: #### L IPID, CMP, T7, BNP, TSH #### [facility] [address] [place] [address] Dr. David Das Urea nitrogen/Creatinine [Mass ratio] 17.2 mg/mg Normal [facility] Comment on above: Performed By: #### L IPID, CMP, T7, BNP, TSH #### [facility] [address] [place] [address] Dr. David Das TSHon 11-03-2022 TSH 1.923 uIU/mL Normal 0.358-3.740 [facility] Comment on above: Performed By: #### L IPID, CMP, T7, BNP, TSH #### [facility] [address] [place] [address] Dr. David Das [facility]17 SARS-CoV-2 (COVID-19) RNA BACILIO+probe Ql [...] for this test is supported by the Case Mgr of Health and Human Service's declaration that [...] By: #### C VDTBH #### [facility] [address] [place] [address] Dr. David Das PAP ACOG PANEL 2: 21 to 29on 05-23-2022 . . Normal [facility] Comment on above: Performed By: #### L IPID, CMP, T7, BNP, TSH #### [facility] [address] [address] [address] David Das Age Gdln ACOG Testing 21-29 Normal [facility] Comment on above: Performed By: #### L IPID, CMP, T7, BNP, TSH #### [facility] [address] [address] [address] David Das DIAGNOSIS: Comment Normal [facility] Comment on above: Result Comment: NEGA TIVE FOR INTRAEPITHELIAL LESION OR MALIGNANCY. Performed By: #### L IPID, CMP, T7, BNP, TSH #### [facility] [address] [address] [address] David Das Methodology: Comment [facility] Comment on above: Result Comment: This liquid based ThinPrep(R) pap test was screened with the use of an image guided system. Performed By: #### L IPID, CMP, T7, BNP, TSH #### [facility] [address] [place] [address] Dr. David Das Note: Comment Normal [facility] Comment on above: Result Comment: The Pap [...] CMP, T7, BNP, TSH #### [facility] [address] [place] [address] Dr. David Das Performed by: Comment Normal [facility] Comment on above: Result Comment: Cayla Jay Healthcare Technician (ASCP) Performed By: #### L IPID, CMP, T7, BNP, TSH #### [facility] [address] [place] [address] Dr. David Das Reflex Criteria: Comment [facility] Comment on above: Result Comment: The HPV DNA reflex criteria were not met with this specimen result therefore, no HPV testing was performed. . Performed By: #### L IPID, CMP, T7, BNP, TSH #### [facility] [address] [place] [address] Dr. David Das Specimen adequacy: Comment Normal [facility] Comment on above: Result Comment: Sati sfactory for evaluation. Endocervical and/or squamous metaplastic cells (endocervical component) are present. Areas of partially obscuring inflammatory exudate are present. Performed By: #### L IPID, CMP, T7, BNP, TSH #### [facility] [address] [address] [address] David Das XR FOOT RT MIN 3 VIEWSon XR FOOT RT MIN 3 VIEWS IMAGES REVIEWED: XR FOOT RT MIN 3 VIEWS COMPARISON: None available. CLINICAL INDICATION: Pain, no injury. FINDINGS/IMPRESSION: Unremarkable radiographic appearance of the right foot. Electronically authenticated by: VIVIEN NOONAN Date: 2022-03-27 20:26 Normal [facility] Pathology Noteon 02-24-2022 Pathology Note [id number] #[id number]:127 Normal [facility] Ambulatory Visit Summaryon 0 02-19-2022 Ambulatory [...] (irritable bowel syndrome) Orthostatic hypotension Scoliosis Normal [facility] General Surgery Office/Clini c Noteon 02-19-2022 [...] influenza virus vaccine, inactivated 07/2021 Recorded Normal [facility] Comment on above: Result Comment: Elec tronically Signed By: CHAMP FUENTES, Marleni Fletcher\Date and Time Signed: 02/19/22 17:00 EDT Facesheeton 02-12-2022 Facesheet [id number] #[id number]:127 Normal [facility] BNPon 02-01-2022 Natriuretic peptide B (Bld) [Mass/Vol] 64.0 pg/mL Normal <=450.0 [facility] Comment on above: Performed By: #### L IPID, CMP, T7, BNP, TSH #### [facility] [address] [place] [address] Dr. David Das CBC AUTO DIFFon 02-01-2022 BASO # 0.0 103/ul Normal 0.0-0.1 [facility] Comment on above: Performed By: #### L IPID, CMP, T7, BNP, TSH #### [facility] [address] [address] [address] David Das Basophils/100 WBC (Bld) 0.4 % Normal 0.2-2.0 [facility] Comment on above: Performed By: #### L IPID, CMP, T7, BNP, TSH #### [facility] [address] [place] [address] Dr. David Das EO # 0.1 103/ul Normal 0.0-0.7 [facility] Comment on above: Performed By: #### L IPID, CMP, T7, BNP, TSH #### [facility] [address] [place] [address] Dr. David Das Eosinophils/100 WBC (Bld) 1.8 % Normal 0.9-7.0 [facility] Comment on above: Performed By: #### L IPID, CMP, T7, BNP, TSH #### [facility] [address] [place] [address] Dr. David Das Erythrocyte distribution width (RBC) [Ratio] 12.5 % Normal 11.0-15.0 [facility] Comment on above: Performed By: #### L IPID, CMP, T7, BNP, TSH #### [facility] [address] [place] [address] Dr. David Das Hematocrit (Bld) [Volume fraction] 43.6 % Normal 36.0-48.0 [facility] Comment on above: Performed By: #### L IPID, CMP, T7, BNP, TSH #### [facility] [address] [place] [address] Dr. David Das Hemoglobin (Bld) [Mass/Vol] 14.2 g/dL Normal 12.0-16.0 [facility] Comment on above: Performed By: #### L IPID, CMP, T7, BNP, TSH #### [facility] [address] [place] [address] Dr. David Das IG # 0.01 10e3/ul Normal 0.00-0.03 [facility] Comment on above: Performed By: #### L IPID, CMP, T7, BNP, TSH #### [facility] [address] [place] [address] Dr. David Das IG % 0.2 % Normal 0.0-0.5 [facility] Comment on above: Performed By: #### L IPID, CMP, T7, BNP, TSH #### [facility] [address] [place] [address] Dr. David Das LYMPH # 1.8 103/ul Normal 1.2-3.8 [facility] Comment on above: Performed By: #### L IPID, CMP, T7, BNP, TSH #### [facility] [address] [place] [address] Dr. David Das Lymphocytes/100 WBC (Bld) 32.0 % Normal 20.5-60.0 [facility] Comment on above: Performed By: #### L IPID, CMP, T7, BNP, TSH #### [facility] [address] [place] [address] Dr. David Das MANUAL DIFF REQ NO Normal [facility] Comment on above: Performed By: #### L IPID, CMP, T7, BNP, TSH #### [facility] [address] [place] [address] Dr. David Das MCH (RBC) [Entitic mass] 30.8 pg Normal 26.7-34.0 [facility] Comment on above: Performed By: #### L IPID, CMP, T7, BNP, TSH #### [facility] [address] [place] [address] Dr. David Das MCHC (RBC) [Mass/Vol] 32.6 g/dL Normal 29.9-35.2 [facility] Comment on above: Performed By: #### L IPID, CMP, T7, BNP, TSH #### [facility] [address] [place] [address] Dr. David Das MCV (RBC) [Entitic vol] 94.6 fL Normal 81.0-99.0 [facility] Comment on above: Performed By: #### L IPID, CMP, T7, BNP, TSH #### [facility] [address] [place] [address] Dr. David Das MONO # 0.4 103/ul Normal 0.3-0.8 [facility] Comment on above: Performed By: #### L IPID, CMP, T7, BNP, TSH #### [facility] [address] [place] [address] Dr. David Das Monocytes/100 WBC (Bld) 6.5 % Normal 1.7-12.0 [facility] Comment on above: Performed By: #### L IPID, CMP, T7, BNP, TSH #### [facility] [address] [place] [address] Dr. David Das NEUT # 3.3 103/ul Normal 1.4-6.5 [facility] Comment on above: Performed By: #### L IPID, CMP, T7, BNP, TSH #### [facility] [address] [place] [address] Dr. David Das Neutrophils/100 WBC (Bld) 59.1 % Normal 43.0-75.0 [facility] Comment on above: Performed By: #### L IPID, CMP, T7, BNP, TSH #### [facility] [address] [place] [address] Dr. David Das Platelet mean volume (Bld) [Entitic vol] 10.5 fL Normal 9.5-13.5 [facility] Comment on above: Performed By: #### L IPID, CMP, T7, BNP, TSH #### [facility] [address] [place] [address] Dr. David Das PLT 195 103/ul Normal 150-450 [facility] Comment on above: Performed By: #### L IPID, CMP, T7, BNP, TSH #### [facility] [address] [place] [address] Dr. David Das RBC 4.61 106/ul Normal 4.20-5.40 [facility] Comment on above: Performed By: #### L IPID, CMP, T7, BNP, TSH #### [facility] [address] [place] [address] Dr. David Das WBC 5.7 103/ul Normal 4.0-11.0 [facility] Comment on above: Performed By: #### L IPID, CMP, T7, BNP, TSH #### [facility] [address] [place] [address] Dr. David Das FREE THYROXINE INDEX T7on FTI 2.41 Normal [facility] Comment on above: Performed By: #### L IPID, CMP, T7, BNP, TSH #### [facility] [address] [place], [place] [id number] Dr. David Das T3U 33.0 % Normal 23.5-40.5 [facility] Comment on above: Performed By: #### L IPID, CMP, T7, BNP, TSH #### [facility] [address] [place] [address] Dr. David Das T4 [Mass/Vol] 7.30 ug/dL Normal 5.53-11.00 [facility] Comment on above: Performed By: #### L IPID, CMP, T7, BNP, TSH #### [facility] [address] [address] [address] David Das GLYCOHEMOGLOBIN A1Con 2021 ADA RECOMMENDATION ADA THERAPEUTIC TARGET 6.0 - 7.0 ACTION SUGGESTED > 7.0 Normal [facility] Comment on above: Performed By: #### A 1C #### [facility] [address] [place] [address] Dr. David Das Glucose [Mass/Vol] 100 mg/dL Normal [facility] Comment on above: Performed By: #### A 1C #### [facility] [address] [place] [address] Dr. David Das HbA1c (Bld) [Mass fraction] 5.1 % Normal <=6.0 [facility] Comment on above: Performed By: #### A 1C #### [facility] [address] [place] [address] Dr. David aDs IRONon 02-01-2022 Iron [Mass/Vol] 101.0 ug/dL Normal 37.0-170.0 [facility] Comment on above: Performed By: #### L IPID, CMP, T7, BNP, TSH #### [facility] [address] [place] [address] Dr. David Das LIPID PROFILEon 02-01-2022 CHOL-HDL RATIO NORM SEE BELOW Normal [facility] Comment on above: Result Comment: 3.3 - 4.4 LOW RISK 4.4 - 7.1 AVERAGE RISK 7.1 - 11.0 MODERATE RISK >11.0 HIGH RISK Performed By: #### L IPID, CMP, T7, BNP, TSH #### [facility] [address] [address] [address] David Das Cholesterol [Mass/Vol] 123 mg/dL Normal <=200 [facility] Comment on above: Performed By: #### L IPID, CMP, T7, BNP, TSH #### [facility] [address] [address] [address] David Das Cholesterol in HDL [Mass/Vol] 44 mg/dL Normal 40-60 [facility] Comment on above: Performed By: #### L IPID, CMP, T7, BNP, TSH #### [facility] [address] [address] [address] David Das Cholesterol in LDL [Mass/Vol] 63.2 mg/dL Normal [facility] Comment on above: Performed By: #### L IPID, CMP, T7, BNP, TSH #### [facility] [address] [address] [address] David Das Cholesterol.total/Ch olesterol in HDL [Mass ratio] 2.8 {ratio} Normal [facility] Comment on above: Performed By: #### L IPID, CMP, T7, BNP, TSH #### [facility] [address] [address] [address] David Das HDL NORMAL > or = 60 mg/dl - LOW CARDIOVASCULAR RISK <40 mg/dl - HIGH CARDIOVASCULAR RISK Normal [facility] Comment on above: Performed By: #### L IPID, CMP, T7, BNP, TSH #### [facility] [address] [address] [address] David Das LDL CALC NORMAL SEE BELOW Normal [facility] Comment on above: Result Comment: <100 mg/dl OPTIMAL 100 - 129 mg/dl NEAR OR ABOVE OPTIMAL 130 - 159 mg/dl BORDERLINE HIGH 160 - 189 mg/dl HIGH >190 mg/dl VERY HIGH Performed By: #### L IPID, CMP, T7, BNP, TSH #### [facility] [address] [address] [address] aDvid Das Triglyceride [Mass/Vol] 79 mg/dL Normal <=150 [facility] Comment on above: Performed By: #### L IPID, CMP, T7, BNP, TSH #### [facility] [address] [address] [address] David Das VLDL CALC 15.8 mg/dL Normal [facility] Comment on above: Performed By: #### L IPID, CMP, T7, BNP, TSH #### [facility] [address] [address] [address] David Das PROF 14(COMP METB)on 022 Albumin [Mass/Vol] 3.9 g/dL Normal 3.4-5.0 [facility] Comment on above: Performed By: #### L IPID, CMP, T7, BNP, TSH #### [facility] [address] [place] [address] Dr. David Das Albumin/Globulin [Mass ratio] 1.2 {ratio} Normal [facility] Comment on above: Performed By: #### L IPID, CMP, T7, BNP, TSH #### [facility] [address] [place] [address] Dr. David Das ALP [Catalytic activity/Vol] 49 U/L Normal 46-116 [facility] Comment on above: Performed By: #### L IPID, CMP, T7, BNP, TSH #### [facility] [address] [place] [address] Dr. David Das ALT [Catalytic activity/Vol] 13 U/L Critically low 14-59 [facility] Comment on above: Performed By: #### L IPID, CMP, T7, BNP, TSH #### [facility] [address] [place] [address] Dr. David Das Anion gap [Moles/Vol] 12.6 mmol/L Normal [facility] Comment on above: Performed By: #### L IPID, CMP, T7, BNP, TSH #### [facility] [address] [place] [address] Dr. David Das AST [Catalytic activity/Vol] 10 U/L Critically low 15-37 [facility] Comment on above: Performed By: #### L IPID, CMP, T7, BNP, TSH #### [facility] [address] [address] [address] David Das Bilirubin [Mass/Vol] 0.4 mg/dL Normal 0.2-1.3 [facility] Comment on above: Performed By: #### L IPID, CMP, T7, BNP, TSH #### [facility] [address] [place] [address] Dr. David Das Calcium [Mass/Vol] 8.7 mg/dL Normal 8.5-10.1 [facility] Comment on above: Performed By: #### L IPID, CMP, T7, BNP, TSH #### [facility] [address] [place] [address] Dr. David Das Chloride [Moles/Vol] 106 mmol/L Normal 98-107 [facility] Comment on above: Performed By: #### L IPID, CMP, T7, BNP, TSH #### [facility] [address] [place] [address] Dr. David Das CO2 [Moles/Vol] 27.9 mmol/L Normal 22.0-30.0 [facility] Comment on above: Performed By: #### L IPID, CMP, T7, BNP, TSH #### [facility] [address] [place] [address] Dr. David Das Creatinine [Mass/Vol] 0.69 mg/dL Normal 0.52-1.04 [facility] Comment on above: Performed By: #### L IPID, CMP, T7, BNP, TSH #### [facility] [address] [place] [address] Dr. David Das EGFR-AF [place] >60 Normal >=60 [facility] Comment on above: Performed By: #### L IPID, CMP, T7, BNP, TSH #### [facility] [address] [place] [address] Dr. David Das EGFR-NON AF [place] >60 Normal >=60 [facility] Comment on above: Performed By: #### L IPID, CMP, T7, BNP, TSH #### [facility] [address] [place] [address] Dr. David Das Globulin (S) [Mass/Vol] 3.2 g/dL Normal [facility] Comment on above: Performed By: #### L IPID, CMP, T7, BNP, TSH #### [facility] [address] [place] [address] Dr. David Das Glucose [Mass/Vol] 104 mg/dL Normal 74-106 [facility] Comment on above: Performed By: #### L IPID, CMP, T7, BNP, TSH #### [facility] [address] [place] [address] Dr. David Das Potassium [Moles/Vol] 4.5 mmol/L Normal 3.4-5.0 [facility] Comment on above: Performed By: #### L IPID, CMP, T7, BNP, TSH #### [facility] [address] [place] [address] Dr. David Das Protein [Mass/Vol] 7.1 g/dL Normal 6.1-8.2 [facility] Comment on above: Performed By: #### L IPID, CMP, T7, BNP, TSH #### [facility] [address] [place] [address] Dr. David Das Sodium [Moles/Vol] 142 mmol/L Normal 137-145 [facility] Comment on above: Performed By: #### L IPID, CMP, T7, BNP, TSH #### [facility] [address] [place] [address] Dr. David Das Urea nitrogen [Mass/Vol] 12.0 mg/dL Normal 7.0-18.0 [facility] Comment on above: Performed By: #### L IPID, CMP, T7, BNP, TSH #### [facility] [address] [place] [address] Dr. David Das Urea nitrogen/Creatinine [Mass ratio] 17.4 mg/mg Normal [facility] Comment on above: Performed By: #### L IPID, CMP, T7, BNP, TSH #### [facility] [address] [place] [address] Dr. David Das TSHon 02-01-2022 TSH 1.718 uIU/mL Normal 0.470-4.680 [facility] Comment on above: Performed By: #### L IPID, CMP, T7, BNP, TSH #### [facility] [address] [address] [address] David Das TSH RANGE SEE BELOW Normal [facility] Comment on above: Result Comment: <0.3 4 UIU/ml HYPERTHYROID 0.34-5.60 UIU/ml EUTHYROID >5.60 UIU/ml HYPOTHYROID Performed By: #### L IPID, CMP, T7, BNP, TSH #### [facility] [address] [address] [address] David Das Physician Referralon 022 Physician Referral [phone] #[id number] Normal [facility] Covid-19 PCR (CVDTB)on 12-18 SARS-CoV-2 (COVID-19) RNA BACILIO+probe Ql (Unsp spec) Not detected Normal NOT DETECTED [facility] Comment on above: Result Comment: This test is not yet approved or cleared by the [place] FDA. When there are no FDA-approved or cleared tests available, and other criteria are met, FDA can make tests available under an emergency access mechanism called an Emergency Use Authorization (EUA). The EUA for this test is supported by the Case Mgr of Health and Human Service's (HHS's) declaration [...] By: #### C VDTBH #### [facility] [address] [address] [address] David Das Social History Date Type Detail Facility Start: 09-28-2023 [facility] Start: 07-01-2023 [facility] Start: 07-01-2023 History of Social function [facility] Start: 07-01-2023 Tobacco use panel [facility] Start: 05-08-2023 Gender identity Identifies as female gender (finding) [facility] Start: 05-08-2023 Sexual orientation Heterosexual (fin ding) [facility] Start: 1995 Sex Assigned At Female [facility] Clinical Note 02-13-2022 Note Date & Type [...] Status influenza virus vaccine, inactivated 07/2021 Recorded [facility] Comment on above: Result Comment: Elec tronically Signed By: CHAMP FUENTES, Marleni R\.br\Date and Time Signed: 02/13/22 15:41 EDT Summary Purpose Family History No Family History Records FoundNo Family History Records FoundNo Family History Records Found Advance Directives No Advanced Directives Records FoundNo Advanced Directives Records FoundNo Advanced Directives Records Found Additional Source Comments INFORMATION SOURCE (unrecogn ized section and content) DATE CREATED AUTHOR 02/25/2022 Albaro Rodriguez [facility] DATE CREATED AUTHOR AUTHOR'S ORGANIZ ATION 11/13/2022 [facility] DATE CREATED AUTHOR AUTHOR'S ORGANIZ ATION 05/11/2024 [facility] EPIC FOR RECORDS PERTAINING TO [...] BE BASED ON THE PRIMARY CLINICAL RECORDS. [facility] provides no warranty or guarantee of the accuracy or completeness of information in this document.
--- NOTE | 2024-05-17 14:04 | US_ITS ---
[address] [address] Patient Name: ABEL ROBISON MRN: [id number] date: 1995 Sex: F Assigned Patient Location: [place] Current Patient Location: Accession/Order Number: [id number] Exam Date: 05/17/2024 14:30 Report Date: 05/17/2024 15:25 At the request of: GONZALES LEON Procedure: US OB BPP w non-stress EXAMINATION: US OB BPP w non-stress HISTORY:Surrogate Z33.3 COMPARISON: Ultrasound OB biophysical 05/10/2024 TECHNIQUE: Ultrasound biophysical profile was performed in the radiology department. BREATHING MOVEMENTS: 2 GROSS BODY MOVEMENTS: 2 TONE: 2 QUALITATIVE AMNIOTIC FLUID VOLUME: 2 PRESENTATION: CEPHALIC HEART RATE: 139.90 bpm AMNIOTIC FLUID VOLUME: 12.05 cm GESTATIONAL AGE: 35 weeks 1 day US/US OB BPP w non-stress IMPRESSION: Total biophysical profile score: 8 Electronically authenticated by: SONIA CHEN Date: 05/17/2024 15:25
[2024-05-17 14:20] VITALS: BP 113/66; PULSE 91
== END 2024-05-17 14:53 | disposition home or self-care (01) ==
LOC: US 07:04 → FBC 14:06
PROVIDERS: Visit Provider Obstetrics & Gynecology
DX: Z33.3 Pregnant state, gestational carrier (principal); Z3A.35 35 weeks gestation of pregnancy
CPT/HCPCS: 76818

== ENCOUNTER 2024-05-20 09:16 | Outpatient (OUT) | payer BC, SELFPAY ==
--- OUTSIDE RECORDS SUMMARY | 2024-05-13 07:12 | XMS_ITS | CCD ---
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 Phone TARAS, DR EARLY Admitting [...] HOY, DR GOLD Attending Unavailable HOY, DR OGLD Primary Care Unavailable HOY, DR GOLD Admitting [...] Primary Care Provider UnavailGONZALES Soliz Attending Unavailable OMAYRAGONZALES ABBASI Attending Unavailable OMAYRAGONZALES ABBASI Attending Unavailable OMAYRAGONZALES ABBASI Attending Unavailable ALEXIS ORTIZ Attending Unavailable OMAYRAGONZALES ABBASI Attending Unavailable OMAYRAGONZALES ABBASI Attending Unavailable OMAYRAGONZALES ABBASI Attending Unavailable Medications Current Medications Medication Drug [...] vomiting 30 tablet 2 12/09/2023 01/08/2024 Active Hrphrfll-Gsj-Uh-FA ( 1 + IRON PO) (1 source) Mpksrbxb-Tik-Dx-FA ( 1 + IRON PO) Take 1 [...] [Ratio] 13.3 % 11.0 - 15.0 % [facility] Hematocrit (Bld) [Volume fraction] 36.6 % 36.0 - 48.0 % [facility] Hemoglobin (Bld) [Mass/Vol] 12.2 g/dL 12.0 - 16.0 g/dL [facility] IMMATURE GRANULOCYTES ABS AUTO 0.04 High [facility] Immature granulocytes/100 WBC (Bld) 0.5 % 0.0 - 0.5 % [facility] Interpretation and review of laboratory results Abnormal [facility] LYMPHOCYTES ABSOLUTE AUTO 2.0 [facility] Lymphocytes/100 WBC (Bld) 23.3 % 20.5 - 60.0 % [facility] MCH (RBC) [Entitic mass] 31.5 pg 26.7 - 34.0 pg [facility] MCHC (RBC) [Mass/Vol] 33.3 g/dL 29.9 - 35.2 g/dL [facility] MCV (RBC) [Entitic vol] 94.6 fL 81.0 - 99.0 fL [facility] MONOCYTES ABSOLUTE AUTO 0.5 [facility] Monocytes/100 WBC (Bld) 6.3 % 1.7 - 12.0 % [facility] NEUTROPHILS ABSOLUTE AUTO 6.0 [facility] Neutrophils/100 WBC (Bld) 69.0 % 43.0 - 75.0 % [facility] Platelet mean volume (Bld) [Entitic vol] 11.3 fL 9.5 - 13.5 fL [facility] EO # 0.1 [facility] PLT 208 [facility] RBC 3.87 Low [facility] WBC 8.6 [facility] CHLAMYDIA/GONOCOCCUS BACILIO (SW AB/URINE/PAPon 11-07-2022 Chlamydia trachomatis, BACILIO Negative Normal Negative [facility] Comment on above: Performed By: #### L IPID, CMP, T7, BNP, TSH #### [facility] [address] [place], [place] [address] Dr. David Das Neisseria gonorrhoeae, BACILIO Negative Normal Negative [facility] Comment on above: Performed By: #### L IPID, CMP, T7, BNP, TSH #### [facility] [address] [place], [place] [address] Dr. David Das US PELVIS AND TRANSVAGon [...] SONIA CHEN Date: 2022-11-06 17:13 Normal [facility] VAGINITIS/VAGINOSIS DNA PROB Farhan 11-06-2022 Angelia species Negative Normal Negative [facility] Comment on above: Performed By: #### V AGINT #### [facility] [address] [place] [address] [address] David Das Gardnerella vaginalis Negative Normal Negative [facility] Comment on above: Performed By: #### V AGINT #### [facility] [address] [place] [address] [address] David Das Trichomonas vaginalis Negative Normal Negative [facility] Comment on above: Performed By: #### V AGINT #### [facility] [address] [place] [address] [address] David Das INSULINon 11-04-2022 Insulin 17.4 uIU/mL Normal 2.6-24.9 [facility] Comment on above: Performed By: #### I NSULIN #### [facility] [address] [place] [address] [address] David Das CBC AUTO DIFFon 11-03-2022 BASO # 0.0 103/ul Normal 0.0-0.1 [facility] Comment on above: Performed By: #### L IPID, CMP, T7, BNP, TSH #### [facility] [address] [place] [address] Dr. David Das Basophils/100 WBC (Bld) 0.4 % Normal 0.2-2.0 [facility] Comment on above: Performed By: #### L IPID, CMP, T7, BNP, TSH #### [facility] [address] [place] [address] Dr. David Das EO # 0.1 103/ul Normal 0.0-0.7 [facility] Comment on above: Performed By: #### L IPID, CMP, T7, BNP, TSH #### [facility] [address] [place] [address] Dr. David Das Eosinophils/100 WBC (Bld) 1.4 % Normal 0.9-7.0 [facility] Comment on above: Performed By: #### L IPID, CMP, T7, BNP, TSH #### [facility] [address] [place] [address] Dr. David Das Erythrocyte distribution width (RBC) [Ratio] 12.4 % Normal 11.0-15.0 [facility] Comment on above: Performed By: #### L IPID, CMP, T7, BNP, TSH #### [facility] [address] [place] [address] Dr. David Das Hematocrit (Bld) [Volume fraction] 43.8 % Normal 36.0-48.0 [facility] Comment on above: Performed By: #### L IPID, CMP, T7, BNP, TSH #### [facility] [address] [place] [address] Dr. David Das Hemoglobin (Bld) [Mass/Vol] 14.6 g/dL Normal 12.0-16.0 [facility] Comment on above: Performed By: #### L IPID, CMP, T7, BNP, TSH #### [facility] [address] [place] [address] Dr. David Das IG # 0.01 10e3/ul Normal 0.00-0.03 [facility] Comment on above: Performed By: #### L IPID, CMP, T7, BNP, TSH #### [facility] [address] [place] [address] Dr. David Das IG % 0.2 % Normal 0.0-0.5 [facility] Comment on above: Performed By: #### L IPID, CMP, T7, BNP, TSH #### [facility] [address] [place] [address] Dr. David Das LYMPH # 1.8 103/ul Normal 1.2-3.8 [facility] Comment on above: Performed By: #### L IPID, CMP, T7, BNP, TSH #### [facility] [address] [place] [address] Dr. David Das Lymphocytes/100 WBC (Bld) 33.3 % Normal 20.5-60.0 [facility] Comment on above: Performed By: #### L IPID, CMP, T7, BNP, TSH #### [facility] [address] [place] [address] Dr. David Das MANUAL DIFF REQ NO Normal [facility] Comment on above: Performed By: #### L IPID, CMP, T7, BNP, TSH #### [facility] [address] [place] [address] Dr. David Das MCH (RBC) [Entitic mass] 30.7 pg Normal 26.7-34.0 [facility] Comment on above: Performed By: #### L IPID, CMP, T7, BNP, TSH #### [facility] [address] [place] [address] Dr. David Das MCHC (RBC) [Mass/Vol] 33.3 g/dL Normal 29.9-35.2 [facility] Comment on above: Performed By: #### L IPID, CMP, T7, BNP, TSH #### [facility] [address] [place] [address] Dr. David Das MCV (RBC) [Entitic vol] 92.0 fL Normal 81.0-99.0 [facility] Comment on above: Performed By: #### L IPID, CMP, T7, BNP, TSH #### [facility] [address] [place] [address] Dr. David Das MONO # 0.4 103/ul Normal 0.3-0.8 [facility] Comment on above: Performed By: #### L IPID, CMP, T7, BNP, TSH #### [facility] [address] [place] [address] Dr. David Das Monocytes/100 WBC (Bld) 7.6 % Normal 1.7-12.0 [facility] Comment on above: Performed By: #### L IPID, CMP, T7, BNP, TSH #### [facility] [address] [place] [address] Dr. David Das NEUT # 3.2 103/ul Normal 1.4-6.5 [facility] Comment on above: Performed By: #### L IPID, CMP, T7, BNP, TSH #### [facility] [address] [place] [address] Dr. David Das Neutrophils/100 WBC (Bld) 57.1 % Normal 43.0-75.0 [facility] Comment on above: Performed By: #### L IPID, CMP, T7, BNP, TSH #### [facility] [address] [place] [address] Dr. David Das Platelet mean volume (Bld) [Entitic vol] 10.5 fL Normal 9.5-13.5 [facility] Comment on above: Performed By: #### L IPID, CMP, T7, BNP, TSH #### [facility] [address] [place] [address] Dr. David Das PLT 200 103/ul Normal 150-450 [facility] Comment on above: Performed By: #### L IPID, CMP, T7, BNP, TSH #### [facility] [address] [place] [address] Dr. David Das RBC 4.76 106/ul Normal 4.20-5.40 [facility] Comment on above: Performed By: #### L IPID, CMP, T7, BNP, TSH #### [facility] [address] [place] [address] [address] David Das WBC 5.5 103/ul Normal 4.0-11.0 [facility] Comment on above: Performed By: #### L IPID, CMP, T7, BNP, TSH #### [facility] [address] [place] [address] [address] David Das FREE THYROXINE INDEX T7on FTI 2.38 Normal 1.30-4.50 [facility] Comment on above: Performed By: #### L IPID, CMP, T7, BNP, TSH #### [facility] [address] [place] [address] [address] David Das T3U 33.0 % Normal 30.0-39.0 [facility] Comment on above: Performed By: #### L IPID, CMP, T7, BNP, TSH #### [facility] [address] [place] [address] Dr. David Das T4 [Mass/Vol] 7.20 ug/dL Normal 4.80-13.90 [facility] Comment on above: Performed By: #### L IPID, CMP, T7, BNP, TSH #### [facility] [address] [place] [address] Dr. David Das GLYCOHEMOGLOBIN A1Con 2021 ADA RECOMMENDATION SEE BELOW Normal [facility] Comment on above: Result Comment: ADA RECOMMENDED LIMIT 4.0 - 6.0 ADA THERAPEUTIC TARGET < 7.0 ACTION SUGGESTED > 7.0 Performed By: #### L IPID, CMP, T7, BNP, TSH #### [facility] [address] [place] [address] Dr. David Das Glucose [Mass/Vol] 103 mg/dL Normal [facility] Comment on above: Performed By: #### L IPID, CMP, T7, BNP, TSH #### [facility] [address] [place] [address] Dr. David Das HbA1c (Bld) [Mass fraction] 5.2 % Normal 4.5-6.2 [facility] Comment on above: Performed By: #### L IPID, CMP, T7, BNP, TSH #### [facility] [address] [place] [address] [address] David Das IRONon 11-03-2022 Iron [Mass/Vol] 117.0 ug/dL Normal 50.0-170.0 [facility] Comment on above: Performed By: #### L IPID, CMP, T7, BNP, TSH #### [facility] [address] [place] [address] [address] David Das LIPID PROFILEon 11-03-2022 CHOL-HDL RATIO NORM SEE BELOW Normal [facility] Comment on above: Result Comment: 3.3 - 4.4 LOW RISK 4.4 - 7.1 AVERAGE RISK 7.1 - 11.0 MODERATE RISK >11.0 HIGH RISK Performed By: #### L IPID, CMP, T7, BNP, TSH #### [facility] [address] [place] [address] [address] David Das Cholesterol [Mass/Vol] 120 mg/dL Normal <=200 [facility] Comment on above: Performed By: #### L IPID, CMP, T7, BNP, TSH #### [facility] [address] [place] [address] [address] David Das Cholesterol in HDL [Mass/Vol] 54 mg/dL Normal 40-60 [facility] Comment on above: Performed By: #### L IPID, CMP, T7, BNP, TSH #### [facility] [address] [place] [address] [address] David Das Cholesterol in LDL [Mass/Vol] 56.8 mg/dL Normal [facility] Comment on above: Performed By: #### L IPID, CMP, T7, BNP, TSH #### [facility] [address] [place] [address] [address] David Das Cholesterol.total/Ch olesterol in HDL [Mass ratio] 2.2 {ratio} Normal [facility] Comment on above: Performed By: #### L IPID, CMP, T7, BNP, TSH #### [facility] [address] [place] [address] [address] David Das HDL NORMAL > or = 60 mg/dl - LOW CARDIOVASCULAR RISK <40 mg/dl - HIGH CARDIOVASCULAR RISK Normal [facility] Comment on above: Performed By: #### L IPID, CMP, T7, BNP, TSH #### [facility] [address] [place] [address] [address] David Das LDL CALC NORMAL SEE BELOW Normal [facility] Comment on above: Result Comment: <100 mg/dl OPTIMAL 100 - 129 mg/dl NEAR OR ABOVE OPTIMAL 130 - 159 mg/dl BORDERLINE HIGH 160 - 189 mg/dl HIGH >190 mg/dl VERY HIGH Performed By: #### L IPID, CMP, T7, BNP, TSH #### [facility] [address] [place] [address] [address] David Das Triglyceride [Mass/Vol] 46 mg/dL Normal <=150 [facility] Comment on above: Performed By: #### L IPID, CMP, T7, BNP, TSH #### [facility] [address] [place] [address] [address] David Das VLDL CALC 9.2 mg/dL Normal [facility] Comment on above: Performed By: #### L IPID, CMP, T7, BNP, TSH #### [facility] [address] [place] [address] [address] David Das PROF 14(COMP METB)on 022 Albumin [Mass/Vol] 4.1 g/dL Normal 3.4-5.0 [facility] Comment on above: Performed By: #### L IPID, CMP, T7, BNP, TSH #### [facility] [address] [place] [address] [address] David Das Albumin/Globulin [Mass ratio] 1.2 {ratio} Normal [facility] Comment on above: Performed By: #### L IPID, CMP, T7, BNP, TSH #### [facility] [address] [place] [address] [address] David Das ALP [Catalytic activity/Vol] 50 U/L Normal 46-116 [facility] Comment on above: Performed By: #### L IPID, CMP, T7, BNP, TSH #### [facility] [address] [place] [address] Dr. David Das ALT [Catalytic activity/Vol] 15 U/L Normal 14-59 [facility] Comment on above: Performed By: #### L IPID, CMP, T7, BNP, TSH #### [facility] [address] [place] [address] Dr. David Das Anion gap [Moles/Vol] 11.0 mmol/L Normal [facility] Comment on above: Performed By: #### L IPID, CMP, T7, BNP, TSH #### [facility] [address] [place] [address] [address] David Das AST [Catalytic activity/Vol] 16 U/L Normal 15-37 [facility] Comment on above: Performed By: #### L IPID, CMP, T7, BNP, TSH #### [facility] [address] [place] [address] Dr. David Das Bilirubin [Mass/Vol] 0.5 mg/dL Normal 0.2-1.0 [facility] Comment on above: Performed By: #### L IPID, CMP, T7, BNP, TSH #### [facility] [address] [place] [address] Dr. David Das Calcium [Mass/Vol] 8.7 mg/dL Normal 8.5-10.1 [facility] Comment on above: Performed By: #### L IPID, CMP, T7, BNP, TSH #### [facility] [address] [place] [address] Dr. David Das Chloride [Moles/Vol] 104 mmol/L Normal 98-107 [facility] Comment on above: Performed By: #### L IPID, CMP, T7, BNP, TSH #### [facility] [address] [place] [address] Dr. David Das CO2 [Moles/Vol] 31.4 mmol/L Normal 21.0-32.0 [facility] Comment on above: Performed By: #### L IPID, CMP, T7, BNP, TSH #### [facility] [address] [place] [address] Dr. David Das Creatinine [Mass/Vol] 0.64 mg/dL Normal 0.55-1.02 [facility] Comment on above: Performed By: #### L IPID, CMP, T7, BNP, TSH #### [facility] [address] [place] [address] [address] David Das EGFR-AF ENGLISH >60 Normal >=60 [facility] Comment on above: Performed By: #### L IPID, CMP, T7, BNP, TSH #### [facility] [address] [place] [address] [address] David Das EGFR-NON AF ENGLISH >60 Normal >=60 [facility] Comment on above: Performed By: #### L IPID, CMP, T7, BNP, TSH #### [facility] [address] [place] [address] Dr. David Das Globulin (S) [Mass/Vol] 3.4 g/dL Normal [facility] Comment on above: Performed By: #### L IPID, CMP, T7, BNP, TSH #### [facility] [address] [place] [address] [address] David Das Glucose [Mass/Vol] 92 mg/dL Normal 74-106 [facility] Comment on above: Performed By: #### L IPID, CMP, T7, BNP, TSH #### [facility] [address] [place] [address] [address] David Das Potassium [Moles/Vol] 4.4 mmol/L Normal 3.5-5.1 [facility] Comment on above: Performed By: #### L IPID, CMP, T7, BNP, TSH #### [facility] [address] [place] [address] Dr. David Das Protein [Mass/Vol] 7.5 g/dL Normal 6.4-8.2 [facility] Comment on above: Performed By: #### L IPID, CMP, T7, BNP, TSH #### [facility] [address] [place] [address] [address] David Das Sodium [Moles/Vol] 142 mmol/L Normal 136-145 [facility] Comment on above: Performed By: #### L IPID, CMP, T7, BNP, TSH #### [facility] [address] [place] [address] [address] David Das Urea nitrogen [Mass/Vol] 11.0 mg/dL Normal 7.0-18.0 [facility] Comment on above: Performed By: #### L IPID, CMP, T7, BNP, TSH #### [facility] [address] [place] [address] [address] David Das Urea nitrogen/Creatinine [Mass ratio] 17.2 mg/mg Normal [facility] Comment on above: Performed By: #### L IPID, CMP, T7, BNP, TSH #### [facility] [address] [place] [address] Dr. David Das TSHon 11-03-2022 TSH 1.923 uIU/mL Normal 0.358-3.740 [facility] Comment on above: Performed By: #### L IPID, CMP, T7, BNP, TSH #### [facility] [address] [place] [address] [address] David Das Covid-19 PCR (CVDTBH)on 05-17 SARS-CoV-2 (COVID-19) RNA BACILIO+probe Ql (Unsp spec) Detected Critically abnormal NOT DETECTED [facility] Comment on above: Result Comment: This test is not yet approved or cleared by the [place] FDA. When there are no FDA-approved or cleared tests available, and other criteria are met, FDA can make tests available under an emergency access mechanism called an Emergency Use Authorization (EUA). The EUA for this test is supported by the Catering Server of Health and Human Service's declaration that [...] used). Performed By: #### C VDTBH #### [facility] [address] [place] [address] Dr. David Das PAP ACOG PANEL 2: 21 to 29on 05-23-2022 . . Normal [facility] Comment on above: Performed By: #### L IPID, CMP, T7, BNP, TSH #### [facility] [address] [place] [address] [address] David Das Age Gdln ACOG Testing 19- [facility] Comment on above: Performed By: #### L IPID, CMP, T7, BNP, TSH #### [facility] [address] [place] [address] [address] David Das DIAGNOSIS: Comment [facility] Comment on above: Result Comment: NEGA TIVE FOR INTRAEPITHELIAL LESION OR MALIGNANCY. Performed By: #### L IPID, CMP, T7, BNP, TSH #### [facility] [address] [place] [address] [address] David Das Methodology: Comment [facility] Comment on above: Result Comment: This liquid based ThinPrep(R) pap test was screened with the use of an image guided system. Performed By: #### L IPID, CMP, T7, BNP, TSH #### [facility] [address] [place] [address] [address] David Das Note: Comment [facility] Comment on above: Result Comment: The [...] L IPID, CMP, T7, BNP, TSH #### [facility] [address] [place] [address] [address] David Das Performed by: Comment Normal [facility] Comment on above: Result Comment: Cayla Jay Stock Order Lister (ASCP) Performed By: #### L IPID, CMP, T7, BNP, TSH #### [facility] [address] [place] [address] [address] David Das Reflex Criteria: Comment [facility] Comment on above: Result Comment: The HPV DNA reflex criteria were not met with this specimen result therefore, no HPV testing was performed. . Performed By: #### L IPID, CMP, T7, BNP, TSH #### [facility] [address] [place], [place] [address] Dr. David Das Specimen adequacy: Comment Normal [facility] Comment on above: Result Comment: Sati sfactory for evaluation. Endocervical and/or squamous metaplastic cells (endocervical component) are present. Areas of partially obscuring inflammatory exudate are present. Performed By: #### L IPID, CMP, T7, BNP, TSH #### [facility] [address] [place], [place] [address] Dr. David Das XR FOOT RT MIN 3 VIEWSon XR FOOT RT MIN 3 VIEWS IMAGES REVIEWED: XR FOOT RT MIN 3 VIEWS COMPARISON: None available. CLINICAL INDICATION: Pain, no injury. FINDINGS/IMPRESSION: Unremarkable radiographic appearance of the right foot. Electronically authenticated by: VIVIEN NOONAN Date: 2022-03-27 20:26 Normal [facility] Pathology Noteon 02-24-2022 Pathology Note [id number] #1.00CD:127 Normal [facility] [place] [facility] Ambulatory Visit Summaryon 0 02-19-2022 Ambulatory Visit Summary ENRIQUETAABEL Trae :1995 Visit Date:02/19/2022 Ambulatory Visit Instructions [...] (irritable bowel syndrome) Orthostatic hypotension Scoliosis Normal [facility] [place] [facility] General Surgery Office/Clini c Noteon [...] influenza virus vaccine, inactivated 07/2021 Recorded Normal [facility] [place] [facility] Comment on above: Result Comment: Elec tronically Signed By: CHAMP FUENTES, Marleni Fletcher\Date and Time Signed: 02/19/22 17:00 EDT Facesheeton 02-12-2022 Facesheet [id number] #1.00CD:127 Normal [facility] [place] [facility] BNPon 02-01-2022 Natriuretic peptide B (Bld) [Mass/Vol] 64.0 pg/mL Normal <=450.0 [facility] Comment on above: Performed By: #### L IPID, CMP, T7, BNP, TSH #### [facility] [address] [address] [address] David Das CBC AUTO DIFFon 02-01-2022 BASO # 0.0 103/ul Normal 0.0-0.1 [facility] Comment on above: Performed By: #### L IPID, CMP, T7, BNP, TSH #### [facility] [address] [place], [place] [address] Dr. David Das Basophils/100 WBC (Bld) 0.4 % Normal 0.2-2.0 [facility] Comment on above: Performed By: #### L IPID, CMP, T7, BNP, TSH #### [facility] [address] [place] [address] Dr. David Dsa EO # 0.1 103/ul Normal 0.0-0.7 [facility] Comment on above: Performed By: #### L IPID, CMP, T7, BNP, TSH #### [facility] [address] [place] [address] Dr. David Das Eosinophils/100 WBC (Bld) 1.8 % Normal 0.9-7.0 [facility] Comment on above: Performed By: #### L IPID, CMP, T7, BNP, TSH #### [facility] [address] [place] [address] Dr. David Das Erythrocyte distribution width (RBC) [Ratio] 12.5 % Normal 11.0-15.0 [facility] Comment on above: Performed By: #### L IPID, CMP, T7, BNP, TSH #### [facility] [address] [place] [address] Dr. David Das Hematocrit (Bld) [Volume fraction] 43.6 % Normal 36.0-48.0 [facility] Comment on above: Performed By: #### L IPID, CMP, T7, BNP, TSH #### [facility] [address] [place] [address] Dr. David Das Hemoglobin (Bld) [Mass/Vol] 14.2 g/dL Normal 12.0-16.0 [facility] Comment on above: Performed By: #### L IPID, CMP, T7, BNP, TSH #### [facility] [address] [place] [address] Dr. David Das IG # 0.01 10e3/ul Normal 0.00-0.03 [facility] Comment on above: Performed By: #### L IPID, CMP, T7, BNP, TSH #### [facility] [address] [place] [address] Dr. David Das IG % 0.2 % Normal 0.0-0.5 [facility] Comment on above: Performed By: #### L IPID, CMP, T7, BNP, TSH #### [facility] [address] [place] [address] Dr. David Das LYMPH # 1.8 103/ul Normal 1.2-3.8 [facility] Comment on above: Performed By: #### L IPID, CMP, T7, BNP, TSH #### [facility] [address] [place] [address] Dr. David Das Lymphocytes/100 WBC (Bld) 32.0 % Normal 20.5-60.0 [facility] Comment on above: Performed By: #### L IPID, CMP, T7, BNP, TSH #### [facility] [address] [place] [address] Dr. David Das MANUAL DIFF REQ NO Normal [facility] Comment on above: Performed By: #### L IPID, CMP, T7, BNP, TSH #### [facility] [address] [place] [address] Dr. David Das MCH (RBC) [Entitic mass] 30.8 pg Normal 26.7-34.0 [facility] Comment on above: Performed By: #### L IPID, CMP, T7, BNP, TSH #### [facility] [address] [place] [address] Dr. David Das MCHC (RBC) [Mass/Vol] 32.6 g/dL Normal 29.9-35.2 [facility] Comment on above: Performed By: #### L IPID, CMP, T7, BNP, TSH #### [facility] [address] [place] [address] Dr. David Das MCV (RBC) [Entitic vol] 94.6 fL Normal 81.0-99.0 [facility] Comment on above: Performed By: #### L IPID, CMP, T7, BNP, TSH #### [facility] [address] [place] [address] Dr. David Das MONO # 0.4 103/ul Normal 0.3-0.8 [facility] Comment on above: Performed By: #### L IPID, CMP, T7, BNP, TSH #### [facility] [address] [place] [address] Dr. David Das Monocytes/100 WBC (Bld) 6.5 % Normal 1.7-12.0 [facility] Comment on above: Performed By: #### L IPID, CMP, T7, BNP, TSH #### [facility] [address] [place] [address] Dr. David Das NEUT # 3.3 103/ul Normal 1.4-6.5 [facility] Comment on above: Performed By: #### L IPID, CMP, T7, BNP, TSH #### [facility] [address] [place] [address] Dr. David Das Neutrophils/100 WBC (Bld) 59.1 % Normal 43.0-75.0 [facility] Comment on above: Performed By: #### L IPID, CMP, T7, BNP, TSH #### [facility] [address] [place] [address] Dr. David Das Platelet mean volume (Bld) [Entitic vol] 10.5 fL Normal 9.5-13.5 [facility] Comment on above: Performed By: #### L IPID, CMP, T7, BNP, TSH #### [facility] [address] [place] [address] Dr. David Das PLT 195 103/ul Normal 150-450 [facility] Comment on above: Performed By: #### L IPID, CMP, T7, BNP, TSH #### [facility] [address] [place] [address] Dr. David Das RBC 4.61 106/ul Normal 4.20-5.40 [facility] Comment on above: Performed By: #### L IPID, CMP, T7, BNP, TSH #### [facility] [address] [place] [address] Dr. David Das WBC 5.7 103/ul Normal 4.0-11.0 [facility] Comment on above: Performed By: #### L IPID, CMP, T7, BNP, TSH #### [facility] [address] [place] [address] Dr. David Das FREE THYROXINE INDEX T7on FTI 2.41 Normal [facility] Comment on above: Performed By: #### L IPID, CMP, T7, BNP, TSH #### [facility] [address] [address] [address] David Das T3U 33.0 % Normal 23.5-40.5 [facility] Comment on above: Performed By: #### L IPID, CMP, T7, BNP, TSH #### [facility] [address] [address] [address] David Das T4 [Mass/Vol] 7.30 ug/dL Normal 5.53-11.00 [facility] Comment on above: Performed By: #### L IPID, CMP, T7, BNP, TSH #### [facility] [address] [address] [address] David Das GLYCOHEMOGLOBIN A1Con 2021 ADA RECOMMENDATION ADA THERAPEUTIC TARGET 6.0 - 7.0 ACTION SUGGESTED > 7.0 Normal [facility] Comment on above: Performed By: #### A 1C #### [facility] [address] [address] [address] David Das Glucose [Mass/Vol] 100 mg/dL Normal [facility] Comment on above: Performed By: #### A 1C #### [facility] [address] [address] [address] David Das HbA1c (Bld) [Mass fraction] 5.1 % Normal <=6.0 [facility] Comment on above: Performed By: #### A 1C #### [facility] [address] [address] [address] David Das IRONon 02-01-2022 Iron [Mass/Vol] 101.0 ug/dL Normal 37.0-170.0 [facility] Comment on above: Performed By: #### L IPID, CMP, T7, BNP, TSH #### [facility] [address] [address] [address] David Das LIPID PROFILEon 02-01-2022 CHOL-HDL RATIO NORM SEE BELOW Normal [facility] Comment on above: Result Comment: 3.3 - 4.4 LOW RISK 4.4 - 7.1 AVERAGE RISK 7.1 - 11.0 MODERATE RISK >11.0 HIGH RISK Performed By: #### L IPID, CMP, T7, BNP, TSH #### [facility] [address] [address] [address] David Das Cholesterol [Mass/Vol] 123 mg/dL Normal <=200 [facility] Comment on above: Performed By: #### L IPID, CMP, T7, BNP, TSH #### [facility] [address] [address] [address] David Das Cholesterol in HDL [Mass/Vol] 44 mg/dL Normal 40-60 [facility] Comment on above: Performed By: #### L IPID, CMP, T7, BNP, TSH #### [facility] [address] [address] [address] David Das Cholesterol in LDL [Mass/Vol] 63.2 mg/dL Normal [facility] Comment on above: Performed By: #### L IPID, CMP, T7, BNP, TSH #### [facility] [address] [address] [address] David Das Cholesterol.total/Ch olesterol in HDL [Mass ratio] 2.8 {ratio} Normal [facility] Comment on above: Performed By: #### L IPID, CMP, T7, BNP, TSH #### [facility] [address] [address] [address] David Das HDL NORMAL > or = 60 mg/dl - LOW CARDIOVASCULAR RISK <40 mg/dl - HIGH CARDIOVASCULAR RISK Normal [facility] Comment on above: Performed By: #### L IPID, CMP, T7, BNP, TSH #### [facility] [address] [address] [address] David Das LDL CALC NORMAL SEE BELOW Normal [facility] Comment on above: Result Comment: <100 mg/dl OPTIMAL 100 - 129 mg/dl NEAR OR ABOVE OPTIMAL 130 - 159 mg/dl BORDERLINE HIGH 160 - 189 mg/dl HIGH >190 mg/dl VERY HIGH Performed By: #### L IPID, CMP, T7, BNP, TSH #### [facility] [address] [address] [address] David Das Triglyceride [Mass/Vol] 79 mg/dL Normal <=150 [facility] Comment on above: Performed By: #### L IPID, CMP, T7, BNP, TSH #### [facility] [address] [address] [address] David Das VLDL CALC 15.8 mg/dL Normal [facility] Comment on above: Performed By: #### L IPID, CMP, T7, BNP, TSH #### [facility] [address] [address] [address] David Das PROF 14(COMP METB)on 022 Albumin [Mass/Vol] 3.9 g/dL Normal 3.4-5.0 [facility] Comment on above: Performed By: #### L IPID, CMP, T7, BNP, TSH #### [facility] [address] [address] [address] David Das Albumin/Globulin [Mass ratio] 1.2 {ratio} Normal [facility] Comment on above: Performed By: #### L IPID, CMP, T7, BNP, TSH #### [facility] [address] [address] [address] David Das ALP [Catalytic activity/Vol] 49 U/L Normal 46-116 [facility] Comment on above: Performed By: #### L IPID, CMP, T7, BNP, TSH #### [facility] [address] [address] [address] David Das ALT [Catalytic activity/Vol] 13 U/L Critically low 14-59 [facility] Comment on above: Performed By: #### L IPID, CMP, T7, BNP, TSH #### [facility] [address] [address] [address] David Das Anion gap [Moles/Vol] 12.6 mmol/L Normal [facility] Comment on above: Performed By: #### L IPID, CMP, T7, BNP, TSH #### [facility] [address] [address] [address] David Das AST [Catalytic activity/Vol] 10 U/L Critically low 15-37 [facility] Comment on above: Performed By: #### L IPID, CMP, T7, BNP, TSH #### [facility] [address] [place] [address] Dr. David Das Bilirubin [Mass/Vol] 0.4 mg/dL Normal 0.2-1.3 [facility] Comment on above: Performed By: #### L IPID, CMP, T7, BNP, TSH #### [facility] [address] [place] [address] Dr. David Das Calcium [Mass/Vol] 8.7 mg/dL Normal 8.5-10.1 [facility] Comment on above: Performed By: #### L IPID, CMP, T7, BNP, TSH #### [facility] [address] [place] [address] Dr. David Das Chloride [Moles/Vol] 106 mmol/L Normal 98-107 [facility] Comment on above: Performed By: #### L IPID, CMP, T7, BNP, TSH #### [facility] [address] [place] [address] Dr. David Das CO2 [Moles/Vol] 27.9 mmol/L Normal 22.0-30.0 [facility] Comment on above: Performed By: #### L IPID, CMP, T7, BNP, TSH #### [facility] [address] [place] [address] Dr. David Das Creatinine [Mass/Vol] 0.69 mg/dL Normal 0.52-1.04 [facility] Comment on above: Performed By: #### L IPID, CMP, T7, BNP, TSH #### [facility] [address] [place] [address] Dr. David Das EGFR-AF ENGLISH >60 Normal >=60 [facility] Comment on above: Performed By: #### L IPID, CMP, T7, BNP, TSH #### [facility] [address] [address] [address] David Das EGFR-NON AF ENGLISH >60 Normal >=60 [facility] Comment on above: Performed By: #### L IPID, CMP, T7, BNP, TSH #### [facility] [address] [place] [address] Dr. David Das Globulin (S) [Mass/Vol] 3.2 g/dL Normal [facility] Comment on above: Performed By: #### L IPID, CMP, T7, BNP, TSH #### [facility] [address] [place] [address] Dr. David Das Glucose [Mass/Vol] 104 mg/dL Normal 74-106 [facility] Comment on above: Performed By: #### L IPID, CMP, T7, BNP, TSH #### [facility] [address] [place] [address] Dr. David Das Potassium [Moles/Vol] 4.5 mmol/L Normal 3.4-5.0 [facility] Comment on above: Performed By: #### L IPID, CMP, T7, BNP, TSH #### [facility] [address] [place] [address] Dr. David Das Protein [Mass/Vol] 7.1 g/dL Normal 6.1-8.2 [facility] Comment on above: Performed By: #### L IPID, CMP, T7, BNP, TSH #### [facility] [address] [place] [address] Dr. David Das Sodium [Moles/Vol] 142 mmol/L Normal 137-145 [facility] Comment on above: Performed By: #### L IPID, CMP, T7, BNP, TSH #### [facility] [address] [place] [address] Dr. David Das Urea nitrogen [Mass/Vol] 12.0 mg/dL Normal 7.0-18.0 [facility] Comment on above: Performed By: #### L IPID, CMP, T7, BNP, TSH #### [facility] [address] [place] [address] Dr. David Das Urea nitrogen/Creatinine [Mass ratio] 17.4 mg/mg Normal [facility] Comment on above: Performed By: #### L IPID, CMP, T7, BNP, TSH #### [facility] [address] [address] [address] David Das TSHon 02-01-2022 TSH 1.718 uIU/mL Normal 0.470-4.680 [facility] Comment on above: Performed By: #### L IPID, CMP, T7, BNP, TSH #### [facility] [address] [place] [address] Dr. David Das TSH RANGE SEE BELOW Normal [facility] Comment on above: Result Comment: <0.3 4 UIU/ml HYPERTHYROID 0.34-5.60 UIU/ml EUTHYROID >5.60 UIU/ml HYPOTHYROID Performed By: #### L IPID, CMP, T7, BNP, TSH #### [facility] [address] [place] [address] Dr. David Das Physician Referralon 022 Physician Referral [id number] #[id number] Normal [facility] Covid-19 PCR ([facility])on 12-18 SARS-CoV-2 (COVID-19) RNA BACILIO+probe Ql (Unsp spec) Not detected Normal NOT DETECTED [facility] Comment on above: Result Comment: This test is not yet approved or cleared by the [place] FDA. When there are no FDA-approved or cleared tests available, and other criteria are met, FDA can make tests available under an emergency access mechanism called an Emergency Use Authorization (EUA). The EUA for this test is supported by the [place] of Health and Human Service's (HHS's) declaration [...] SARS-CoV-2. Performed By: #### C VDTB #### [facility] [address] [address] [address] David Das Encounters Encounter Date Encounter Type Care Provider Facility Start: 05-10-2024 End: 05-10-2024 ambulatory GONZALES OMAYRA Not Available Start: 04-26-2024 End: 04-26-2024 ambulatory GONZALES OMAYRA Not Available Start: 04-12-2024 End: 04-12-2024 ambulatory GONZALES OMAYRA Not Available Start: 03-28-2024 End: 03-28-2024 ambulatory AELXIS ORTIZ Not Available Start: 03-02-2024 End: 03-02-2024 [...] EST Routine [facility] [address] [place] [address] Gonzales Cutler, DO [address] [place] [address] [facility] Start: 07-17-2023 Influenza vaccination Influenza Vacc ine (#1) [facility] Start: 2023 Screening for malign ant neoplasm of cervix [facility] Start: 2014 Screening for malign ant neoplasm of cervix Pap Smear [facility] Immunizations Immunization Date Immunization Notes Care Provider Fa cility 08-03-2022 influenza virus vacc ine, unspecified formulation Gonzales Cutler DO Work Phone: [facility] Payers Date Payer Category Payer Unknown BCBS BCBS xxxxxx [id number] 2023-Present [phone] [address] [place] [address] [id number] 2023 Unknown [id number] 1993 Unknown [id number] ..[id number] 1993 Unknown [id number] ..840.1.562780.3.579.2.593 1993 Unknown [id number] 2..840.1.398564.3.579.2.593 1993 Unknown [id number] 2.16.840.1.152034.3.579.2.593 1993 Unknown [id number] 2.16.840.1.245598.3.579.2.593 1993 Unknown [id number] 2.16.840.1.926807.3.579.2.593 1993 Unknown [id number] 2.16.840.1.031479.3.579.2.593 1993 Unknown [id number] 2.16.840.1.223559.3.579.2.593 1993 Unknown [id number] 2.16.840.1.317121.3.579.2.593 1993 Unknown [id number] 2.16.840.1.294296.3.579.2.1259 1993 Unknown [id number] 2.16.840.1.037015.3.579.2.1259 1993 Unknown [id number] 2.16.840.1.939205.3.579.2.1259 1993 Unknown [id number] 2.16.840.1.481458.3.579.2.1259 1993 Unknown [id number] 2.16840.1.151957.3.579.2.1259 1993 Unknown [id number] 2.16.840.1.553620.3.579.2.1259 1993 Unknown [id number] 2.16.840.1.008326.3.579.2.1259 1993 Unknown [id number] 2.16.840.1.594883.3.579.2.1259 1959 Self-pay 1959 Unknown [id number] 1959 Unknown [id number] 1959 Unknown [id number] 1959 Unknown [id number] Social History Date Type Detail Facility Start: [facility]01-[facility]23 [facility] Start: 07-01-2023 [...] Status influenza virus vaccine, inactivated 07/2021 Recorded [facility] Comment on above: Result Comment: Elec tronically Signed By: CHAMP FUENTES, Marleni Yung.bunny\Date and Time Signed: 02/13/22 15:41 EDT Summary Purpose Family History No Family History Records FoundNo Family History Records FoundNo Family History Records Found Advance Directives No Advanced Directives Records FoundNo Advanced Directives Records FoundNo Advanced Directives Records Found Additional Source Comments INFORMATION SOURCE (unrecogn ized section and content) DATE CREATED AUTHOR 02/25/2022 [facility] DATE CREATED AUTHOR AUTHOR'S ORGANIZ ATION 11/13/2022 [facility] DATE CREATED AUTHOR AUTHOR'S ORGANIZ ATION 05/11/2024 [facility] EPIC FOR RECORDS PERTAINING TO PATIENTS WHO ARE [...] BE BASED ON THE PRIMARY CLINICAL RECORDS. [facility] [employer] [facility]. provides no warranty or guarantee of the accuracy or completeness of information in this document.
--- OUTSIDE RECORDS SUMMARY | 2024-05-20 09:20 | XMS_ITS | CCD ---
Author Organization [facility] CliniSyde Care Team Providers Care Scrap Picker Name Role Phone TARAS, DR EARLY Admitting [...] vomiting 30 tablet 2 12/09/2023 01/08/2024 Active Yxkyldgh-Eme-Vo-FA ( 1 + IRON PO) (1 source) Qfvkjjqq-Hll-Pq-FA ( 1 + IRON PO) Take 1 [...] [Ratio] 13.3 % 11.0 - 15.0 % [facility] Hematocrit (Bld) [Volume fraction] 36.6 % 36.0 - 48.0 % [facility] Hemoglobin (Bld) [Mass/Vol] 12.2 g/dL 12.0 - 16.0 g/dL [facility] IMMATURE GRANULOCYTES ABS AUTO 0.[address] [facility] Immature granulocytes/100 WBC (Bld) 0.5 % 0.0 - 0.5 % [facility] Interpretation and review of laboratory results Abnormal [facility] LYMPHOCYTES ABSOLUTE AUTO 2.0 [facility] Lymphocytes/100 WBC (Bld) 23.3 % 20.5 - 60.0 % [facility] MCH (RBC) [Entitic mass] 31.5 pg 26.7 - 34.[address] [facility] MCHC (RBC) [Mass/Vol] 33.3 g/dL 29.9 - 35.2 g/dL [facility] MCV (RBC) [Entitic vol] 94.6 fL 81.0 - 99.[address] [facility] MONOCYTES ABSOLUTE AUTO 0.5 [facility] Monocytes/100 WBC (Bld) 6.3 % 1.7 - 12.0 % [facility] NEUTROPHILS ABSOLUTE AUTO 6.0 [facility] Neutrophils/100 WBC (Bld) 69.0 % 43.0 - 75.0 % [facility] Platelet mean volume (Bld) [Entitic vol] 11.3 fL 9.5 - 13.[address] [facility] EO # 0.1 [facility] PLT 208 [facility] RBC 3.87 Low [facility] WBC 8.6 [facility] CHLAMYDIA/GONOCOCCUS BACILIO (SW AB/URINE/PAPon 11-07-2022 Chlamydia trachomatis, BACILIO Negative Normal Negative [facility] Comment on above: Performed By: #### L IPID, CMP, T7, BNP, TSH #### [facility] [address] [place], [place] [address] Dr. David Das Neisseria gonorrhoeae, BACILIO Negative Normal Negative [facility] Comment on above: Performed By: #### L IPID, CMP, T7, BNP, TSH #### [facility] [address] [place], [place] [address] Dr. David Das US PELVIS AND TRANSVAGon [...] CHEN Date: 2022-11-06 17:13 Normal [facility] VAGINITIS/VAGINOSIS DNA PROB Farhan 11-06-2022 Angelia species Negative Normal Negative [facility] Comment on above: Performed By: #### V AGINT #### [facility] [address] [address] [address] David Das Gardnerella vaginalis Negative Normal Negative [facility] Comment on above: Performed By: #### V AGINT #### [facility] [address] [address] [address] David Das Trichomonas vaginalis Negative Normal Negative [facility] Comment on above: Performed By: #### V AGINT #### [facility] [address] [address] [address] David Das INSULINon 11-04-2022 Insulin 17.4 uIU/mL Normal 2.6-24.9 [facility] Comment on above: Performed By: #### I NSULIN #### [facility] [address] [address] [address] David Das CBC AUTO DIFFon 11-03-2022 BASO # 0.0 103/ul Normal 0.0-0.1 [facility] Comment on above: Performed By: #### L IPID, CMP, T7, BNP, TSH #### [facility] [address] [place] [address] Dr. David Das Basophils/100 WBC (Bld) 0.4 % Normal 0.2-2.0 [facility] Comment on above: Performed By: #### L IPID, CMP, T7, BNP, TSH #### [facility] [address] [place] [address] Dr. David Das EO # 0.1 103/ul Normal 0.0-0.7 [facility] Comment on above: Performed By: #### L IPID, CMP, T7, BNP, TSH #### [facility] [address] [place] [address] Dr. David Das Eosinophils/100 WBC (Bld) 1.4 % Normal 0.9-7.0 [facility] Comment on above: Performed By: #### L IPID, CMP, T7, BNP, TSH #### [facility] [address] [place] [address] Dr. David Das Erythrocyte distribution width (RBC) [Ratio] 12.4 % Normal 11.0-15.0 [facility] Comment on above: Performed By: #### L IPID, CMP, T7, BNP, TSH #### [facility] [address] [place] [address] Dr. David Das Hematocrit (Bld) [Volume fraction] 43.8 % Normal 36.0-48.0 [facility] Comment on above: Performed By: #### L IPID, CMP, T7, BNP, TSH #### [facility] [address] [place] [address] Dr. David Das Hemoglobin (Bld) [Mass/Vol] 14.6 g/dL Normal 12.0-16.0 [facility] Comment on above: Performed By: #### L IPID, CMP, T7, BNP, TSH #### [facility] [address] [place] [address] Dr. David Das IG # 0.01 10e3/ul Normal 0.00-0.03 [facility] Comment on above: Performed By: #### L IPID, CMP, T7, BNP, TSH #### [facility] [address] [place] [address] Dr. David Das IG % 0.2 % Normal 0.0-0.5 [facility] Comment on above: Performed By: #### L IPID, CMP, T7, BNP, TSH #### [facility] [address] [place] [address] Dr. David Das LYMPH # 1.8 103/ul Normal 1.2-3.8 [facility] Comment on above: Performed By: #### L IPID, CMP, T7, BNP, TSH #### [facility] [address] [place] [address] Dr. David Das Lymphocytes/100 WBC (Bld) 33.3 % Normal 20.5-60.0 [facility] Comment on above: Performed By: #### L IPID, CMP, T7, BNP, TSH #### [facility] [address] [place] [address] Dr. David Das MANUAL DIFF REQ NO Normal [facility] Comment on above: Performed By: #### L IPID, CMP, T7, BNP, TSH #### [facility] [address] [place] [address] Dr. David Das MCH (RBC) [Entitic mass] 30.7 pg Normal 26.7-34.0 [facility] Comment on above: Performed By: #### L IPID, CMP, T7, BNP, TSH #### [facility] [address] [place] [address] Dr. David Das MCHC (RBC) [Mass/Vol] 33.3 g/dL Normal 29.9-35.2 [facility] Comment on above: Performed By: #### L IPID, CMP, T7, BNP, TSH #### [facility] [address] [place] [address] Dr. David Das MCV (RBC) [Entitic vol] 92.0 fL Normal 81.0-99.0 [facility] Comment on above: Performed By: #### L IPID, CMP, T7, BNP, TSH #### [facility] [address] [place] [address] Dr. David Das MONO # 0.4 103/ul Normal 0.3-0.8 [facility] Comment on above: Performed By: #### L IPID, CMP, T7, BNP, TSH #### [facility] [address] [place] [address] Dr. David Das Monocytes/100 WBC (Bld) 7.6 % Normal 1.7-12.0 [facility] Comment on above: Performed By: #### L IPID, CMP, T7, BNP, TSH #### [facility] [address] [place] [address] Dr. David Das NEUT # 3.2 103/ul Normal 1.4-6.5 [facility] Comment on above: Performed By: #### L IPID, CMP, T7, BNP, TSH #### [facility] [address] [place] [address] Dr. David Das Neutrophils/100 WBC (Bld) 57.1 % Normal 43.0-75.0 [facility] Comment on above: Performed By: #### L IPID, CMP, T7, BNP, TSH #### [facility] [address] [place] [address] Dr. David Das Platelet mean volume (Bld) [Entitic vol] 10.5 fL Normal 9.5-13.5 [facility] Comment on above: Performed By: #### L IPID, CMP, T7, BNP, TSH #### [facility] [address] [place] [address] Dr. David Das PLT 200 103/ul Normal 150-450 [facility] Comment on above: Performed By: #### L IPID, CMP, T7, BNP, TSH #### [facility] [address] [place] [address] Dr. David Das RBC 4.76 106/ul Normal 4.20-5.40 [facility] Comment on above: Performed By: #### L IPID, CMP, T7, BNP, TSH #### [facility] [address] [address] [address] David Das WBC 5.5 103/ul Normal 4.0-11.0 [facility] Comment on above: Performed By: #### L IPID, CMP, T7, BNP, TSH #### [facility] [address] [address] [address] David Das FREE THYROXINE INDEX T7on FTI 2.38 Normal 1.30-4.50 [facility] Comment on above: Performed By: #### L IPID, CMP, T7, BNP, TSH #### [facility] [address] [address] [address] David Das T3U 33.0 % Normal 30.0-39.0 [facility] Comment on above: Performed By: #### L IPID, CMP, T7, BNP, TSH #### [facility] [address] [place] [address] Dr. David Das T4 [Mass/Vol] 7.20 ug/dL Normal 4.80-13.90 [facility] Comment on above: Performed By: #### L IPID, CMP, T7, BNP, TSH #### [facility] [address] [place] [address] Dr. David Das GLYCOHEMOGLOBIN A1Con 2021 ADA RECOMMENDATION SEE BELOW Normal [facility] Comment on above: Result Comment: ADA RECOMMENDED LIMIT 4.0 - 6.0 ADA THERAPEUTIC TARGET < 7.0 ACTION SUGGESTED > 7.0 Performed By: #### L IPID, CMP, T7, BNP, TSH #### [facility] [address] [place] [address] Dr. David Das Glucose [Mass/Vol] 103 mg/dL Normal [facility] Comment on above: Performed By: #### L IPID, CMP, T7, BNP, TSH #### [facility] [address] [place] [address] Dr. David Das HbA1c (Bld) [Mass fraction] 5.2 % Normal 4.5-6.2 [facility] Comment on above: Performed By: #### L IPID, CMP, T7, BNP, TSH #### [facility] [address] [address] [address] David Das IRONon 11-03-2022 Iron [Mass/Vol] 117.0 ug/dL Normal 50.0-170.0 [facility] Comment on above: Performed By: #### L IPID, CMP, T7, BNP, TSH #### [facility] [address] [address] [address] David Das LIPID PROFILEon 11-03-2022 CHOL-HDL RATIO NORM SEE BELOW Normal [facility] Comment on above: Result Comment: 3.3 - 4.4 LOW RISK 4.4 - 7.1 AVERAGE RISK 7.1 - 11.0 MODERATE RISK >11.0 HIGH RISK Performed By: #### L IPID, CMP, T7, BNP, TSH #### [facility] [address] [address] [address] David Das Cholesterol [Mass/Vol] 120 mg/dL Normal <=200 [facility] Comment on above: Performed By: #### L IPID, CMP, T7, BNP, TSH #### [facility] [address] [address] [address] David Das Cholesterol in HDL [Mass/Vol] 54 mg/dL Normal 40-60 [facility] Comment on above: Performed By: #### L IPID, CMP, T7, BNP, TSH #### [facility] [address] [address] [address] David Das Cholesterol in LDL [Mass/Vol] 56.8 mg/dL Normal [facility] Comment on above: Performed By: #### L IPID, CMP, T7, BNP, TSH #### [facility] [address] [address] [address] David Das Cholesterol.total/Ch olesterol in HDL [Mass ratio] 2.2 {ratio} Normal [facility] Comment on above: Performed By: #### L IPID, CMP, T7, BNP, TSH #### [facility] [address] [address] [address] David Das HDL NORMAL > or = 60 mg/dl - LOW CARDIOVASCULAR RISK <40 mg/dl - HIGH CARDIOVASCULAR RISK Normal [facility] Comment on above: Performed By: #### L IPID, CMP, T7, BNP, TSH #### [facility] [address] [address] [address] David Das LDL CALC NORMAL SEE BELOW Normal [facility] Comment on above: Result Comment: <100 mg/dl OPTIMAL 100 - 129 mg/dl NEAR OR ABOVE OPTIMAL 130 - 159 mg/dl BORDERLINE HIGH 160 - 189 mg/dl HIGH >190 mg/dl VERY HIGH Performed By: #### L IPID, CMP, T7, BNP, TSH #### [facility] [address] [address] [address] David Das Triglyceride [Mass/Vol] 46 mg/dL Normal <=150 [facility] Comment on above: Performed By: #### L IPID, CMP, T7, BNP, TSH #### [facility] [address] [address] [address] David Das VLDL CALC 9.2 mg/dL Normal [facility] Comment on above: Performed By: #### L IPID, CMP, T7, BNP, TSH #### [facility] [address] [address] [address] David Das PROF 14(COMP METB)on 022 Albumin [Mass/Vol] 4.1 g/dL Normal 3.4-5.0 [facility] Comment on above: Performed By: #### L IPID, CMP, T7, BNP, TSH #### [facility] [address] [address] [address] David Das Albumin/Globulin [Mass ratio] 1.2 {ratio} Normal [facility] Comment on above: Performed By: #### L IPID, CMP, T7, BNP, TSH #### [facility] [address] [address] [address] David Das ALP [Catalytic activity/Vol] 50 U/L Normal 46-116 [facility] Comment on above: Performed By: #### L IPID, CMP, T7, BNP, TSH #### [facility] [address] [place] [address] Dr. David Das ALT [Catalytic activity/Vol] 15 U/L Normal 14-59 [facility] Comment on above: Performed By: #### L IPID, CMP, T7, BNP, TSH #### [facility] [address] [place] [address] Dr. David Das Anion gap [Moles/Vol] 11.0 mmol/L Normal [facility] Comment on above: Performed By: #### L IPID, CMP, T7, BNP, TSH #### [facility] [address] [address] [address] David Das AST [Catalytic activity/Vol] 16 U/L Normal 15-37 [facility] Comment on above: Performed By: #### L IPID, CMP, T7, BNP, TSH #### [facility] [address] [place] [address] Dr. David Das Bilirubin [Mass/Vol] 0.5 mg/dL Normal 0.2-1.0 [facility] Comment on above: Performed By: #### L IPID, CMP, T7, BNP, TSH #### [facility] [address] [place] [address] Dr. David Das Calcium [Mass/Vol] 8.7 mg/dL Normal 8.5-10.1 [facility] Comment on above: Performed By: #### L IPID, CMP, T7, BNP, TSH #### [facility] [address] [place] [address] Dr. David Das Chloride [Moles/Vol] 104 mmol/L Normal 98-107 [facility] Comment on above: Performed By: #### L IPID, CMP, T7, BNP, TSH #### [facility] [address] [place] [address] Dr. David Das CO2 [Moles/Vol] 31.4 mmol/L Normal 21.0-32.0 [facility] Comment on above: Performed By: #### L IPID, CMP, T7, BNP, TSH #### [facility] [address] [place] [address] Dr. David Das Creatinine [Mass/Vol] 0.64 mg/dL Normal 0.55-1.02 [facility] Comment on above: Performed By: #### L IPID, CMP, T7, BNP, TSH #### [facility] [address] [address] [address] David Das EGFR-AF GUAMANIAN >60 Normal >=60 [facility] Comment on above: Performed By: #### L IPID, CMP, T7, BNP, TSH #### [facility] [address] [address] [address] David Das EGFR-NON AF GUAMANIAN >60 Normal >=60 [facility] Comment on above: Performed By: #### L IPID, CMP, T7, BNP, TSH #### [facility] [address] [place] [address] Dr. David Das Globulin (S) [Mass/Vol] 3.4 g/dL Normal [facility] Comment on above: Performed By: #### L IPID, CMP, T7, BNP, TSH #### [facility] [address] [address] [address] David Das Glucose [Mass/Vol] 92 mg/dL Normal 74-106 [facility] Comment on above: Performed By: #### L IPID, CMP, T7, BNP, TSH #### [facility] [address] [address] [address] David Das Potassium [Moles/Vol] 4.4 mmol/L Normal 3.5-5.1 [facility] Comment on above: Performed By: #### L IPID, CMP, T7, BNP, TSH #### [facility] [address] [place] [address] Dr. David Das Protein [Mass/Vol] 7.5 g/dL Normal 6.4-8.2 [facility] Comment on above: Performed By: #### L IPID, CMP, T7, BNP, TSH #### [facility] [address] [address] [address] David Das Sodium [Moles/Vol] 142 mmol/L Normal 136-145 [facility] Comment on above: Performed By: #### L IPID, CMP, T7, BNP, TSH #### [facility] [address] [address] [address] David aDs Urea nitrogen [Mass/Vol] 11.0 mg/dL Normal 7.0-18.0 [facility] Comment on above: Performed By: #### L IPID, CMP, T7, BNP, TSH #### [facility] [address] [address] [address] David Das Urea nitrogen/Creatinine [Mass ratio] 17.2 mg/mg Normal [facility] Comment on above: Performed By: #### L IPID, CMP, T7, BNP, TSH #### [facility] [address] [place] [address] Dr. David Das TSHon 11-03-2022 TSH 1.923 uIU/mL Normal 0.358-3.740 [facility] Comment on above: Performed By: #### L IPID, CMP, T7, BNP, TSH #### [facility] [address] [address] [address] David Das Covid-19 PCR (CVDTBH)on 05-17 SARS-CoV-2 (COVID-19) RNA BACILIO+probe Ql (Unsp spec) Detected Critically abnormal NOT DETECTED [facility] Comment on above: Result Comment: This test is not yet approved or cleared by the [place] FDA. When there are no FDA-approved or cleared tests available, and other criteria are met, FDA can make tests available under an emergency access mechanism called an Emergency Use Authorization (EUA). The EUA for this test is supported by the Microbiological Laboratory Technician of Health and Human Service's declaration that [...] Performed By: #### C VDTBH #### [facility] [address] [place] [address] Dr. David Das PAP ACOG PANEL 2: 21 to 29on 05-23-2022 . . Normal [facility] Comment on above: Performed By: #### L IPID, CMP, T7, BNP, TSH #### [facility] [address] [address] [address] David Das Age Gdln ACOG Testing 19- [facility] Comment on above: Performed By: #### L IPID, CMP, T7, BNP, TSH #### [facility] [address] [address] [address] David Das DIAGNOSIS: Comment [facility] Comment on above: Result Comment: NEGA TIVE FOR INTRAEPITHELIAL LESION OR MALIGNANCY. Performed By: #### L IPID, CMP, T7, BNP, TSH #### [facility] [address] [address] [address] David Das Methodology: Comment [facility] Comment on above: Result Comment: This liquid based ThinPrep(R) pap test was screened with the use of an image guided system. Performed By: #### L IPID, CMP, T7, BNP, TSH #### [facility] [address] [address] [address] David Das Note: Comment [facility] Comment on above: Result Comment: The [...] IPID, CMP, T7, BNP, TSH #### [facility] [address] [address] [address] 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 David Das Reflex Criteria: Comment [facility] Comment on above: Result Comment: The HPV DNA reflex criteria were not met with this specimen result therefore, no HPV testing was performed. . Performed By: #### L IPID, CMP, T7, BNP, TSH #### [facility] [address], [place] [address] Dr. David Das Specimen adequacy: Comment Normal [facility] Comment on above: Result Comment: Sati sfactory for evaluation. Endocervical and/or squamous metaplastic cells (endocervical component) are present. Areas of partially obscuring inflammatory exudate are present. Performed By: #### L IPID, CMP, T7, BNP, TSH #### [facility] [address] [place], [place] [address] Dr. David Das XR FOOT RT MIN 3 VIEWSon XR FOOT RT MIN 3 VIEWS IMAGES REVIEWED: XR FOOT RT MIN 3 VIEWS COMPARISON: None available. CLINICAL INDICATION: Pain, no injury. FINDINGS/IMPRESSION: Unremarkable radiographic appearance of the right foot. Electronically authenticated by: VIVIEN NOONAN Date: 2022-03-27 20:26 Normal [facility] Pathology Noteon 02-24-2022 Pathology Note [id number] #1.00CD:127 Normal [facility] Ambulatory Visit Summaryon 0 02-19-2022 Ambulatory [...] (irritable bowel syndrome) Orthostatic hypotension Scoliosis Normal [facility] General Surgery Office/Clini c Noteon 02-19-2022 [...] influenza virus vaccine, inactivated 07/2021 Recorded Normal [facility] Comment on above: Result Comment: Elec tronically Signed By: CHAMP FUENTES, Marleni Fletcher\Date and Time Signed: 02/19/22 17:00 EDT Facesheeton 02-12-2022 Facesheet [id number] #1.00CD:127 Normal [facility] BNPon 02-01-2022 Natriuretic peptide B (Bld) [Mass/Vol] 64.0 pg/mL Normal <=450.0 [facility] Comment on above: Performed By: #### L IPID, CMP, T7, BNP, TSH #### [facility] [address] [address] [address] David Das CBC AUTO DIFFon 02-01-2022 BASO # 0.0 103/ul Normal 0.0-0.1 [facility] Comment on above: Performed By: #### L IPID, CMP, T7, BNP, TSH #### [facility] [address] [place], [place] [address] Dr. David Das Basophils/100 WBC (Bld) 0.4 % Normal 0.2-2.0 [facility] Comment on above: Performed By: #### L IPID, CMP, T7, BNP, TSH #### [facility] [address] [place] [address] Dr. David Das EO # 0.1 103/ul Normal 0.0-0.7 [facility] Comment on above: Performed By: #### L IPID, CMP, T7, BNP, TSH #### [facility] [address] [place] [address] Dr. David Das Eosinophils/100 WBC (Bld) 1.8 % Normal 0.9-7.0 [facility] Comment on above: Performed By: #### L IPID, CMP, T7, BNP, TSH #### [facility] [address] [place] [address] Dr. David Das Erythrocyte distribution width (RBC) [Ratio] 12.5 % Normal 11.0-15.0 [facility] Comment on above: Performed By: #### L IPID, CMP, T7, BNP, TSH #### [facility] [address] [place] [address] Dr. David Das Hematocrit (Bld) [Volume fraction] 43.6 % Normal 36.0-48.0 [facility] Comment on above: Performed By: #### L IPID, CMP, T7, BNP, TSH #### [facility] [address] [place] [address] Dr. David Das Hemoglobin (Bld) [Mass/Vol] 14.2 g/dL Normal 12.0-16.0 [facility] Comment on above: Performed By: #### L IPID, CMP, T7, BNP, TSH #### [facility] [address] [place] [address] Dr. David Das IG # 0.01 10e3/ul Normal 0.00-0.03 [facility] Comment on above: Performed By: #### L IPID, CMP, T7, BNP, TSH #### [facility] [address] [place] [address] Dr. David Das IG % 0.2 % Normal 0.0-0.5 [facility] Comment on above: Performed By: #### L IPID, CMP, T7, BNP, TSH #### [facility] [address] [place] [address] Dr. David Das LYMPH # 1.8 103/ul Normal 1.2-3.8 [facility] Comment on above: Performed By: #### L IPID, CMP, T7, BNP, TSH #### [facility] [address] [place] [address] Dr. David Das Lymphocytes/100 WBC (Bld) 32.0 % Normal 20.5-60.0 [facility] Comment on above: Performed By: #### L IPID, CMP, T7, BNP, TSH #### [facility] [address] [place] [address] Dr. David Das MANUAL DIFF REQ NO Normal [facility] Comment on above: Performed By: #### L IPID, CMP, T7, BNP, TSH #### [facility] [address] [place] [address] Dr. David Das MCH (RBC) [Entitic mass] 30.8 pg Normal 26.7-34.0 [facility] Comment on above: Performed By: #### L IPID, CMP, T7, BNP, TSH #### [facility] [address] [place] [address] Dr. David Das MCHC (RBC) [Mass/Vol] 32.6 g/dL Normal 29.9-35.2 [facility] Comment on above: Performed By: #### L IPID, CMP, T7, BNP, TSH #### [facility] [address] [place] [address] Dr. David Das MCV (RBC) [Entitic vol] 94.6 fL Normal 81.0-99.0 [facility] Comment on above: Performed By: #### L IPID, CMP, T7, BNP, TSH #### [facility] [address] [place] [address] Dr. David Das MONO # 0.4 103/ul Normal 0.3-0.8 [facility] Comment on above: Performed By: #### L IPID, CMP, T7, BNP, TSH #### [facility] [address] [place] [address] Dr. David Das Monocytes/100 WBC (Bld) 6.5 % Normal 1.7-12.0 [facility] Comment on above: Performed By: #### L IPID, CMP, T7, BNP, TSH #### [facility] [address] [place] [address] Dr. David Das NEUT # 3.3 103/ul Normal 1.4-6.5 [facility] Comment on above: Performed By: #### L IPID, CMP, T7, BNP, TSH #### [facility] [address] [place] [address] Dr. David Das Neutrophils/100 WBC (Bld) 59.1 % Normal 43.0-75.0 [facility] Comment on above: Performed By: #### L IPID, CMP, T7, BNP, TSH #### [facility] [address] [place] [address] Dr. David Das Platelet mean volume (Bld) [Entitic vol] 10.5 fL Normal 9.5-13.5 [facility] Comment on above: Performed By: #### L IPID, CMP, T7, BNP, TSH #### [facility] [address] [place] [address] Dr. David Das PLT 195 103/ul Normal 150-450 [facility] Comment on above: Performed By: #### L IPID, CMP, T7, BNP, TSH #### [facility] [address] [place] [address] Dr. David Das RBC 4.61 106/ul Normal 4.20-5.40 [facility] Comment on above: Performed By: #### L IPID, CMP, T7, BNP, TSH #### [facility] [address] [place] [address] Dr. David Das WBC 5.7 103/ul Normal 4.0-11.0 [facility] Comment on above: Performed By: #### L IPID, CMP, T7, BNP, TSH #### [facility] [address] [place] [address] Dr. David Das FREE THYROXINE INDEX T7on FTI 2.41 Normal [facility] Comment on above: Performed By: #### L IPID, CMP, T7, BNP, TSH #### [facility] [address] [address] [address] David Das T3U 33.0 % Normal 23.5-40.5 [facility] Comment on above: Performed By: #### L IPID, CMP, T7, BNP, TSH #### [facility] [address] [address] [address] David Das T4 [Mass/Vol] 7.30 ug/dL Normal 5.53-11.00 [facility] Comment on above: Performed By: #### L IPID, CMP, T7, BNP, TSH #### [facility] [address] [address] [address] David Das GLYCOHEMOGLOBIN A1Con 2021 ADA RECOMMENDATION ADA THERAPEUTIC TARGET 6.0 - 7.0 ACTION SUGGESTED > 7.0 Normal [facility] Comment on above: Performed By: #### A 1C #### [facility] [address] [address] [address] David Das Glucose [Mass/Vol] 100 mg/dL Normal [facility] Comment on above: Performed By: #### A 1C #### [facility] [address] [address] [address] David Das HbA1c (Bld) [Mass fraction] 5.1 % Normal <=6.0 [facility] Comment on above: Performed By: #### A 1C #### [facility] [address] [address] [address] David Das IRONon 02-01-2022 Iron [Mass/Vol] 101.0 ug/dL Normal 37.0-170.0 [facility] Comment on above: Performed By: #### L IPID, CMP, T7, BNP, TSH #### [facility] [address] [address] [address] David Das LIPID PROFILEon 02-01-2022 CHOL-HDL RATIO NORM SEE BELOW Normal [facility] Comment on above: Result Comment: 3.3 - 4.4 LOW RISK 4.4 - 7.1 AVERAGE RISK 7.1 - 11.0 MODERATE RISK >11.0 HIGH RISK Performed By: #### L IPID, CMP, T7, BNP, TSH #### [facility] [address] [address] [address] David Das Cholesterol [Mass/Vol] 123 mg/dL Normal <=200 [facility] Comment on above: Performed By: #### L IPID, CMP, T7, BNP, TSH #### [facility] [address] [address] [address] David Das Cholesterol in HDL [Mass/Vol] 44 mg/dL Normal 40-60 [facility] Comment on above: Performed By: #### L IPID, CMP, T7, BNP, TSH #### [facility] [address] [address] [address] David Das Cholesterol in LDL [Mass/Vol] 63.2 mg/dL Normal [facility] Comment on above: Performed By: #### L IPID, CMP, T7, BNP, TSH #### [facility] [address] [address] [address] David Das Cholesterol.total/Ch olesterol in HDL [Mass ratio] 2.8 {ratio} Normal [facility] Comment on above: Performed By: #### L IPID, CMP, T7, BNP, TSH #### [facility] [address] [address] [address] David Das HDL NORMAL > or = 60 mg/dl - LOW CARDIOVASCULAR RISK <40 mg/dl - HIGH CARDIOVASCULAR RISK Normal [facility] Comment on above: Performed By: #### L IPID, CMP, T7, BNP, TSH #### [facility] [address] [address] [address] David Das LDL CALC NORMAL SEE BELOW Normal [facility] Comment on above: Result Comment: <100 mg/dl OPTIMAL 100 - 129 mg/dl NEAR OR ABOVE OPTIMAL 130 - 159 mg/dl BORDERLINE HIGH 160 - 189 mg/dl HIGH >190 mg/dl VERY HIGH Performed By: #### L IPID, CMP, T7, BNP, TSH #### [facility] [address] [address] [address] David Das Triglyceride [Mass/Vol] 79 mg/dL Normal <=150 [facility] Comment on above: Performed By: #### L IPID, CMP, T7, BNP, TSH #### [facility] [address] [address] [address] David Das VLDL CALC 15.8 mg/dL Normal [facility] Comment on above: Performed By: #### L IPID, CMP, T7, BNP, TSH #### [facility] [address] [address] [address] David Das PROF 14(COMP METB)on 022 Albumin [Mass/Vol] 3.9 g/dL Normal 3.4-5.0 [facility] Comment on above: Performed By: #### L IPID, CMP, T7, BNP, TSH #### [facility] [address] [address] [address] David Das Albumin/Globulin [Mass ratio] 1.2 {ratio} Normal [facility] Comment on above: Performed By: #### L IPID, CMP, T7, BNP, TSH #### [facility] [address] [address] [address] David Das ALP [Catalytic activity/Vol] 49 U/L Normal 46-116 [facility] Comment on above: Performed By: #### L IPID, CMP, T7, BNP, TSH #### [facility] [address] [address] [address] David Das ALT [Catalytic activity/Vol] 13 U/L Critically low 14-59 [facility] Comment on above: Performed By: #### L IPID, CMP, T7, BNP, TSH #### [facility] [address] [address] [address] David Das Anion gap [Moles/Vol] 12.6 mmol/L Normal [facility] Comment on above: Performed By: #### L IPID, CMP, T7, BNP, TSH #### [facility] [address] [address] [address] David Das AST [Catalytic activity/Vol] 10 U/L Critically low 15-37 [facility] Comment on above: Performed By: #### L IPID, CMP, T7, BNP, TSH #### [facility] [address] [place] [address] Dr. David Das Bilirubin [Mass/Vol] 0.4 mg/dL Normal 0.2-1.3 [facility] Comment on above: Performed By: #### L IPID, CMP, T7, BNP, TSH #### [facility] [address] [place] [address] Dr. David Das Calcium [Mass/Vol] 8.7 mg/dL Normal 8.5-10.1 [facility] Comment on above: Performed By: #### L IPID, CMP, T7, BNP, TSH #### [facility] [address] [place] [address] Dr. David Das Chloride [Moles/Vol] 106 mmol/L Normal 98-107 [facility] Comment on above: Performed By: #### L IPID, CMP, T7, BNP, TSH #### [facility] [address] [place] [address] Dr. David Das CO2 [Moles/Vol] 27.9 mmol/L Normal 22.0-30.0 [facility] Comment on above: Performed By: #### L IPID, CMP, T7, BNP, TSH #### [facility] [address] [place] [address] Dr. David Das Creatinine [Mass/Vol] 0.69 mg/dL Normal 0.52-1.04 [facility] Comment on above: Performed By: #### L IPID, CMP, T7, BNP, TSH #### [facility] [address] [place] [address] Dr. David Das EGFR-AF GUAMANIAN >60 Normal >=60 [facility] Comment on above: Performed By: #### L IPID, CMP, T7, BNP, TSH #### [facility] [address] [address] [address] David Das EGFR-NON AF GUAMANIAN >60 Normal >=60 [facility] Comment on above: Performed By: #### L IPID, CMP, T7, BNP, TSH #### [facility] [address] [place] [address] Dr. David Das Globulin (S) [Mass/Vol] 3.2 g/dL Normal [facility] Comment on above: Performed By: #### L IPID, CMP, T7, BNP, TSH #### [facility] [address] [place] [address] Dr. David Das Glucose [Mass/Vol] 104 mg/dL Normal 74-106 [facility] Comment on above: Performed By: #### L IPID, CMP, T7, BNP, TSH #### [facility] [address] [place] [address] Dr. David aDs Potassium [Moles/Vol] 4.5 mmol/L Normal 3.4-5.0 [facility] Comment on above: Performed By: #### L IPID, CMP, T7, BNP, TSH #### [facility] [address] [place] [address] Dr. David Das Protein [Mass/Vol] 7.1 g/dL Normal 6.1-8.2 [facility] Comment on above: Performed By: #### L IPID, CMP, T7, BNP, TSH #### [facility] [address] [place] [address] Dr. David Das Sodium [Moles/Vol] 142 mmol/L Normal 137-145 [facility] Comment on above: Performed By: #### L IPID, CMP, T7, BNP, TSH #### [facility] [address] [place] [address] Dr. David Das Urea nitrogen [Mass/Vol] 12.0 mg/dL Normal 7.0-18.0 [facility] Comment on above: Performed By: #### L IPID, CMP, T7, BNP, TSH #### [facility] [address] [place] [address] Dr. David Das Urea nitrogen/Creatinine [Mass ratio] 17.4 mg/mg Normal [facility] Comment on above: Performed By: #### L IPID, CMP, T7, BNP, TSH #### [facility] [address] [address] [address] David Das TSHon 02-01-2022 TSH 1.718 uIU/mL Normal 0.470-4.680 [facility] Comment on above: Performed By: #### L IPID, CMP, T7, BNP, TSH #### [facility] [address] [place] [address] Dr. David Das TSH RANGE SEE BELOW Normal [facility] Comment on above: Result Comment: <0.3 4 UIU/ml HYPERTHYROID 0.34-5.60 UIU/ml EUTHYROID >5.60 UIU/ml HYPOTHYROID Performed By: #### L IPID, CMP, T7, BNP, TSH #### [facility] [address] [place] [address] Dr. David Das Physician Referralon 022 Physician Referral [id number] #[id number] Normal [facility] Covid-19 PCR ([facility])on 12-18 SARS-CoV-2 (COVID-19) RNA BACILIO+probe Ql (Unsp spec) Not detected Normal NOT DETECTED [facility] Comment on above: Result Comment: This test is not yet approved or cleared by the [place] FDA. When there are no FDA-approved or cleared tests available, and other criteria are met, FDA can make tests available under an emergency access mechanism called an Emergency Use Authorization (EUA). The EUA for this test is supported by the Microbiological Laboratory Technician of Health and Human Service's (HHS's) declaration [...] SARS-CoV-2. Performed By: #### C VDTB #### [facility] [address] [address] [address] David Das Encounters Encounter Date Encounter Type Care Provider Facility Start: 05-10-2024 End: 05-10-2024 ambulatory GONZALES OMAYRA Not Available Start: 04-26-2024 End: 04-26-2024 ambulatory GONZALES OMAYRA Not Available Start: 04-12-2024 End: 04-12-2024 ambulatory GONZALES OMAYRA Not Available Start: 03-28-2024 End: 03-28-2024 ambulatory ALEXIS ORTIZ Not Available Start: 03-02-2024 End: 03-02-2024 ambulatory GONZALES OMAYRA Not Available Start: 02-03-2024 End: 02-03-2024 ambulatory GONZALES OMYARA Not Available Start: 01-06-2024 End: 01-06-2024 ambulatory [...] EST Routine [facility] [address] [place] [address] Gonzales Cutler, DO [address] [place] [address] [facility] Start: 07-17-2023 Influenza vaccination [...] Payer Category Payer Unknown BCBS BCBS xxxxxx [id number] 2023-Present [phone] [address] [place] [address] [id number] 2023 Unknown [id number] 1993 Unknown [id number] 1993 Unknown [id number] ..[id number] 1993 Unknown [id number] 2..840.1.358264.3.579.2.593 1993 Unknown [id number] 2.16.840.1.996698.3.579.2.593 1993 Unknown [id number] 2.16.840.1.871345.3.579.2.593 1993 Unknown [id number] 2.16.840.1.041307.3.579.2.593 1993 Unknown [id number] 2.16.840.1.906599.3.579.2.593 1993 Unknown [id number] 2.16.840.1.658779.3.579.2.593 1993 Unknown [id number] 2.16.840.1.345479.3.579.2.593 1993 Unknown [id number] 2.16.840.1.932669.3.579.2.1259 1993 Unknown [id number] 2.16.840.1.031781.3.579.2.1259 1993 Unknown [id number] 2.16.840.1.283331.3.579.2.1259 1993 Unknown [id number] 2.16.840.1.826905.3.579.2.1259 1993 Unknown [id number] 2.16840.1.295673.3.579.2.1259 1993 Unknown [id number] 2.16.840.1.068984.3.579.2.1259 1993 Unknown [id number] 2.16.840.1.772095.3.579.2.1259 1993 Unknown [id number] 2.16.840.1.856183.3.579.2.1259 1959 Self-pay 1959 Unknown [id number] 1959 Unknown [id number] 1959 Unknown [id number] 1959 Unknown [id number] Social History Date Type Detail Facility Start: [facility]01[facility]2023 [facility] Start: [...] Status influenza virus vaccine, inactivated 07/2021 Recorded [facility] Comment on above: Result Comment: Elec [...] and content) DATE CREATED AUTHOR 02/25/2022 [facility] DATE CREATED AUTHOR AUTHOR'S ORGANIZ ATION 11/13/2022 [facility] DATE CREATED AUTHOR AUTHOR'S ORGANIZ ATION 05/11/2024 [facility] EPIC FOR RECORDS PERTAINING TO [...] BE BASED ON THE PRIMARY CLINICAL RECORDS. [facility]. provides no warranty or guarantee of the accuracy or completeness of information in this document.
[2024-05-20 14:09] VITALS: BP 104/62; PULSE 86
== END 2024-05-20 14:44 | disposition home or self-care (01) ==
LOC: FBCO 09:17 → FBC 13:59
PROVIDERS: Visit Provider Obstetrics & Gynecology
DX: O26.893 Other specified pregnancy related conditions, third trimester (principal)
CPT/HCPCS: 59025

== ENCOUNTER 2024-05-24 07:06 | Outpatient (OUT) | payer BC, SELFPAY ==
--- NOTE | 2024-05-24 13:04 | US_ITS ---
[address] [address] Patient Name: ABEL ROBISON MRN: [id number] date: 1995 Sex: F Assigned Patient Location: US Current Patient Location: Accession/Order Number: [id number] Exam Date: 05/24/2024 13:06 Report Date: 05/24/2024 14:41 At the request of: GONZALES LEON Procedure: US OB BPP w non-stress EXAMINATION: US OB BPP w non-stress HISTORY: Surrogate COMPARISON: No relevant comparison available. TECHNIQUE: Ultrasound biophysical profile was performed in the radiology department. non-reactive stress testing was performed by nursing staff in the birthing center. FINDINGS: BREATHING MOVEMENTS: 2 GROSS BODY MOVEMENTS: 2 TONE: 2 QUALITATIVE AMNIOTIC FLUID VOLUME: 2 PRESENTATION: CEPHALIC HEART RATE: 144.39 bpm AMNIOTIC FLUID VOLUME: 10.6 cm GESTATIONAL AGE: 36 weeks 1 day US/US OB BPP w non-stress IMPRESSION: Total biophysical profile score: 8 Electronically authenticated by: LINA MODI Date: 05/24/2024 14:41
[2024-05-24 13:40] VITALS: BP 95/60; PULSE 86
== END 2024-05-24 14:05 | disposition home or self-care (01) ==
LOC: US 07:07 → FBC 12:59
PROVIDERS: Visit Provider Obstetrics & Gynecology
DX: Z34.93 Encounter for supervision of normal pregnancy, unspecified, third trimester (principal); Z3A.36 36 weeks gestation of pregnancy
CPT/HCPCS: 76818

== ENCOUNTER 2024-05-24 20:10 | Outpatient (REF) | payer BC, SELFPAY | END 2024-05-24 20:11 | disposition home or self-care (01) | LOC: LAB 20:10 | PROVIDERS: Visit Provider Obstetrics & Gynecology | DX: Z34.93 Encounter for supervision of normal pregnancy, unspecified, third trimester (principal) | CPT/HCPCS: 87081 ==

== ENCOUNTER 2024-05-27 07:13 | Outpatient (OUT) | payer BC, SELFPAY ==
--- NOTE | 2024-05-27 15:00 | US_ITS ---
[address] [address] Patient Name: ABEL ROBISON MRN: [id number] date: 1995 Sex: F Assigned Patient Location: [facility] Current Patient Location: [facility] Accession/Order Number: [id number] Exam Date: 05/27/2024 15:30 Report Date: 05/27/2024 16:15 At the request of: GONZALES LEON Procedure: US OB growth EXAMINATION: US OB growth HISTORY: low mikey COMPARISON: No relevant comparison available. FINDINGS: Heart Rate: 157 Amniotic Fluid Volume: 10.5 cm Number: Single Position: Cephalic BIOMETRY: BPD: 8.86 cm; 35 weeks 6 days; 41% HC: 32.55 cm; 36 weeks 6 days; 29% AC: 29.57 cm; 33 weeks 4 days; <3% FL: 6.8 cm; 34 weeks 5 days; 9% EFW: 2434 g, 5 lbs. 6 oz.; 90% FL/AC: 23% FL/BPD: 76% HC/AC: 1.1 GESTATIONAL AGE: Age by EDC: 36 weeks 4 days IBRAHIMA by EDC: 06/20/2024 Age by US: 35 weeks 2 days IBRAHIMA by US: 06/29/2024 US/US OB growth IMPRESSION: Abdominal circumference less than the 3rd percentile, otherwise normal interval growth Electronically authenticated by: LINA MODI Date: 05/27/2024 16:15
--- NOTE | 2024-05-27 15:00 | US_ITS ---
[address] [address] Patient Name: ABEL ROBISON MRN: [id number] date: 1995 Sex: F Assigned Patient Location: [facility] [place] [facility] [place]ion/Order Number: [id number] Exam Date: 05/27/2024 15:30 Report Date: 05/27/2024 16:17 At the request of: GONZALES LEON Procedure: US OB umbilical artery EXAM: US OB umbilical artery HISTORY: surrogate, low mikey EXAMINATION: US OB umbilical artery HISTORY: surrogate, low mikey COMPARISON: No relevant comparison available. TECHNIQUE: Duplex Doppler evaluation of the umbilical arteries. FINDINGS: Hernandez intrauterine gestation Heart rate: 157 beats minute Clinical age: 36 weeks 4 days Proximal umbilical artery: 87/25 cm/s. Resistive index 0.72. Ratio is 3.5 Mid umbilical artery: 71/32 cm/s. Resistive index 0.55. Ratio 2.2 Distal umbilical artery: 74/33 cm/s. Resistive index 0.56. Ratio 2.3 Forward flow identified throughout diastole US/US OB umbilical artery IMPRESSION: Normal exam. Class 0 Umbilical Artery: Class 0 = Normal umbilical artery blood velocity Class I = increased RI or PI, but still forward flow in diastole Class II = Absent end diastolic flow (AEDF) Class III = Reversal of end diastolic flow (REDF) Resistive Index (RI)<1 Systolic/Diastolic ratio (S:D): An S:D ratio of 2-3 after 34 wks is normal Systolic/Diastolic ratio (S:D): Age 16: 3.01 for the 10th percentile, 4.25 for the 50th percentile, 6.07 for the 90th percentile Age 20: 3.16 for the 10th percentile, 4.04 for the 50th percentile, 5.24 for the 90th percentile Age 24: 2.70 for the 10th percentile, 3.50 for the 50th percentile, 4.75 for the 90th percentile Age 28: 2.41 for the 10th percentile, 3.02 for the 50th percentile, 3.97 for the 90th percentile Age 30: 2.43 for the 10th percentile, 3.04 for the 50th percentile, 3.80 for the 90th percentile Age 32: 2.27 for the 10th percentile, 2.73 for the 50th percentile, 3.57 for the 90th percentile Age 34: 2.08 for the 10th percentile, 2.52 for the 50th percentile, 3.41 for the 90th percentile Age 36: 1.96 for the 10th percentile, 2.35 for the 50th percentile, 3.15 for the 90th percentile Age 38: 1.89 for the 10th percentile, 2.24 for the 50th percentile, 3.10 for the 90th percentile Age 40: 1.88 for the 10th percentile, 2.22 for the 50th percentile, 2.68 for the 90th percentile Age 41: 1.93 for the 10th percentile, 2.21 for the 50th percentile, 2.55 for the 90th percentile Age 42: 1.91 for the 10th percentile, 2.51 for the 50th percentile, 3.21 for the 90th percentile Uteroplacental Artery: Resistive Index (RI): Normal=<0.55 High Resistance=Bilateral notches (after 26 wks) and RI>0.55. Unilateral notches (after 26 wks) and RI>0.65 Systolic/Diastolic ratio (S:D) = 2-3 is normal after 32 weeks. COMPARISON: None. TECHNIQUE: FINDINGS: IMPRESSION: Electronically authenticated by: LINA MODI Date: 05/27/2024 16:17
--- NOTE | 2024-05-27 15:00 | US_ITS ---
[address] [address] Patient Name: ABEL ROBISON MRN: [id number] date: 1995 Sex: F Assigned Patient Location: [facility] Current Patient Location: Accession/Order Number: [id number] Exam Date: 05/27/2024 15:30 Report Date: 05/27/2024 16:12 At the request of: GONZALES LEON Procedure: US OB BPP w non-stress EXAMINATION: US OB BPP w non-stress HISTORY: surrogate, low mikey COMPARISON: No relevant comparison available. TECHNIQUE: Ultrasound biophysical profile was performed in the radiology department. non-reactive stress testing was performed by nursing staff in the birthing center. FINDINGS: BREATHING MOVEMENTS: 2 GROSS BODY MOVEMENTS: 2 TONE: 2 QUALITATIVE AMNIOTIC FLUID VOLUME: 2 PRESENTATION: Cephalic HEART RATE: 157 AMNIOTIC FLUID VOLUME: 10.5 cm GESTATIONAL AGE: 36 weeks 4 days US/US OB BPP w non-stress IMPRESSION: Total biophysical profile score: 8/8 Electronically authenticated by: LINA MODI Date: 05/27/2024 16:12
[2024-05-27 15:42] VITALS: BP 101/68; PULSE 90
== END 2024-05-27 16:13 | disposition home or self-care (01) ==
LOC: FBCO 07:13 → FBC 14:59
PROVIDERS: Visit Provider Obstetrics & Gynecology
DX: O41.03X0 Oligohydramnios, third trimester, not applicable or unspecified (principal); Z3A.36 36 weeks gestation of pregnancy; Z33.3 Pregnant state, gestational carrier
CPT/HCPCS: 76816; 76818; 76820

== ENCOUNTER 2024-05-31 14:22 | Outpatient (OUT) | payer BC, SELFPAY ==
--- NOTE | 2024-05-31 14:44 | US_ITS ---
[address] [address] Patient Name: ABEL ROBISON MRN: [id number] date: 1995 Sex: F Assigned Patient Location: [facility] Current Patient Location: [facility] Accession/Order Number: [id number] Exam Date: 05/31/2024 14:48 Report Date: 05/31/2024 15:11 At the request of: GONZALES LEON Procedure: US OB BPP w non-stress EXAMINATION: US OB BPP w non-stress HISTORY: Surrogate Z33.3 COMPARISON: No relevant comparison available. TECHNIQUE: Ultrasound biophysical profile was performed in the radiology department. FINDINGS: BREATHING MOVEMENTS: 2 GROSS BODY MOVEMENTS: 2 TONE: 2 QUALITATIVE AMNIOTIC FLUID VOLUME: 2 PRESENTATION: CEPHALIC HEART RATE: 170.89 bpm AMNIOTIC FLUID VOLUME: 12.4 cm GESTATIONAL AGE: 37 weeks 1 day US/US OB BPP w non-stress IMPRESSION: Total biophysical profile score: 8 Electronically authenticated by: LINA MODI Date: 05/31/2024 15:11
--- OUTSIDE RECORDS SUMMARY | 2024-05-31 14:45 | XMS_ITS | CCD ---
Author Organization [facility] CliniSynh Care Team Providers Care Crime Investigator Special Agent Name Role Phone TARAS, DR EARLY Admitting [...] DR GOLD Primary Care Unavailable HAWTHORNE, DR OCREY Keen Admitting Unavailable HAWTHORNE, DR COREY Keen [...] vomiting 30 tablet 2 12/09/2023 01/08/2024 Active Heatgcnv-Qed-Zt-FA ( 1 + IRON PO) (1 source) Wqhhlxkt-Tyq-Gc-FA ( 1 + IRON PO) Take 1 [...] [Ratio] 13.3 % 11.0 - 15.0 % [facility] Hematocrit (Bld) [Volume fraction] 36.6 % 36.0 - 48.0 % [facility] Hemoglobin (Bld) [Mass/Vol] 12.2 g/dL 12.0 - 16.0 g/dL [facility] IMMATURE GRANULOCYTES ABS AUTO 0.04 High [facility] Immature granulocytes/100 WBC (Bld) 0.5 % 0.0 - 0.5 % [facility] Interpretation and review of laboratory results Abnormal [facility] LYMPHOCYTES ABSOLUTE AUTO 2.0 [facility] Lymphocytes/100 WBC (Bld) 23.3 % 20.5 - 60.0 % [facility] MCH (RBC) [Entitic mass] 31.5 pg 26.7 - 34.0 pg [facility] MCHC (RBC) [Mass/Vol] 33.3 g/dL 29.9 - 35.2 g/dL [facility] MCV (RBC) [Entitic vol] 94.6 fL 81.0 - 99.0 fL [facility] MONOCYTES ABSOLUTE AUTO 0.5 [facility] Monocytes/100 WBC (Bld) 6.3 % 1.7 - 12.0 % [facility] NEUTROPHILS ABSOLUTE AUTO 6.0 [facility] Neutrophils/100 WBC (Bld) 69.0 % 43.0 - 75.0 % [facility] Platelet mean volume (Bld) [Entitic vol] 11.3 fL 9.5 - 13.5 fL [facility] TBH EO # 0.1 [facility]H PLT 208 [facility] RBC 3.87 Low [facility] WBC 8.6 [facility]IN[facility] CHLAMYDIA/GONOCOCCUS BACILIO (SW AB/URINE/PAPon 11-07-2022 Chlamydia trachomatis, BACILIO Negative Normal Negative [facility] Comment on above: Performed By: #### L IPID, CMP, T7, BNP, TSH #### [facility] [address], [place] [address] Dr. David Das Neisseria gonorrhoeae, BACILIO Negative Normal Negative [facility] Comment on above: Performed By: #### L IPID, CMP, T7, BNP, TSH #### [facility] [address], [place] [address] Dr. David Das US PELVIS AND TRANSVAGon [...] SONIA CHEN Date: 2022-11-06 17:13 Normal [facility] VAGINITIS/VAGINOSIS DNA PROB Farhan 11-06-2022 Angelia species Negative Normal Negative [facility] Comment on above: Performed By: #### V AGINT #### [facility] [address] [address] [address] David Das Gardnerella vaginalis Negative Normal Negative [facility] Comment on above: Performed By: #### V AGINT #### [facility] [address] [address] [address] David Das Trichomonas vaginalis Negative Normal Negative [facility] Comment on above: Performed By: #### V AGINT #### [facility] [address] [address] [address] David Das INSULINon 11-04-2022 Insulin 17.4 uIU/mL Normal 2.6-24.9 [facility] Comment on above: Performed By: #### I NSULIN #### [facility] [address] [address] [address] David Das CBC AUTO DIFFon 11-03-2022 BASO # 0.0 103/ul Normal 0.0-0.1 [facility] Comment on above: Performed By: #### L IPID, CMP, T7, BNP, TSH #### [facility] [address] [place] [address] Dr. David Das Basophils/100 WBC (Bld) 0.4 % Normal 0.2-2.0 [facility] Comment on above: Performed By: #### L IPID, CMP, T7, BNP, TSH #### [facility] [address] [place] [address] Dr. David Das EO # 0.1 103/ul Normal 0.0-0.7 [facility] Comment on above: Performed By: #### L IPID, CMP, T7, BNP, TSH #### [facility] [address] [place] [address] Dr. David Das Eosinophils/100 WBC (Bld) 1.4 % Normal 0.9-7.0 [facility] Comment on above: Performed By: #### L IPID, CMP, T7, BNP, TSH #### [facility] [address] [place] [address] Dr. David Das Erythrocyte distribution width (RBC) [Ratio] 12.4 % Normal 11.0-15.0 [facility] Comment on above: Performed By: #### L IPID, CMP, T7, BNP, TSH #### [facility] [address] [place] [address] Dr. David Das Hematocrit (Bld) [Volume fraction] 43.8 % Normal 36.0-48.0 [facility] Comment on above: Performed By: #### L IPID, CMP, T7, BNP, TSH #### [facility] [address] [place] [address] Dr. David Das Hemoglobin (Bld) [Mass/Vol] 14.6 g/dL Normal 12.0-16.0 [facility] Comment on above: Performed By: #### L IPID, CMP, T7, BNP, TSH #### [facility] [address] [place] [address] Dr. David Das IG # 0.01 10e3/ul Normal 0.00-0.03 [facility] Comment on above: Performed By: #### L IPID, CMP, T7, BNP, TSH #### [facility] [address] [place] [address] Dr. David Das IG % 0.2 % Normal 0.0-0.5 [facility] Comment on above: Performed By: #### L IPID, CMP, T7, BNP, TSH #### [facility] [address] [place] [address] Dr. David Das LYMPH # 1.8 103/ul Normal 1.2-3.8 [facility] Comment on above: Performed By: #### L IPID, CMP, T7, BNP, TSH #### [facility] [address] [place] [address] Dr. David Das Lymphocytes/100 WBC (Bld) 33.3 % Normal 20.5-60.0 [facility] Comment on above: Performed By: #### L IPID, CMP, T7, BNP, TSH #### [facility] [address] [place] [address] Dr. David Das MANUAL DIFF REQ NO Normal [facility] Comment on above: Performed By: #### L IPID, CMP, T7, BNP, TSH #### [facility] [address] [place] [address] Dr. David Das MCH (RBC) [Entitic mass] 30.7 pg Normal 26.7-34.0 [facility] Comment on above: Performed By: #### L IPID, CMP, T7, BNP, TSH #### [facility] [address] [place] [address] Dr. David Das MCHC (RBC) [Mass/Vol] 33.3 g/dL Normal 29.9-35.2 [facility] Comment on above: Performed By: #### L IPID, CMP, T7, BNP, TSH #### [facility] [address] [place] [address] Dr. David Das MCV (RBC) [Entitic vol] 92.0 fL Normal 81.0-99.0 [facility] Comment on above: Performed By: #### L IPID, CMP, T7, BNP, TSH #### [facility] [address] [place] [address] Dr. David Das MONO # 0.4 103/ul Normal 0.3-0.8 [facility] Comment on above: Performed By: #### L IPID, CMP, T7, BNP, TSH #### [facility] [address] [place] [address] Dr. David Das Monocytes/100 WBC (Bld) 7.6 % Normal 1.7-12.0 [facility] Comment on above: Performed By: #### L IPID, CMP, T7, BNP, TSH #### [facility] [address] [place] [address] Dr. David Das NEUT # 3.2 103/ul Normal 1.4-6.5 [facility] Comment on above: Performed By: #### L IPID, CMP, T7, BNP, TSH #### [facility] [address] [place] [address] Dr. David Das Neutrophils/100 WBC (Bld) 57.1 % Normal 43.0-75.0 [facility] Comment on above: Performed By: #### L IPID, CMP, T7, BNP, TSH #### [facility] [address] [place] [address] Dr. David Das Platelet mean volume (Bld) [Entitic vol] 10.5 fL Normal 9.5-13.5 [facility] Comment on above: Performed By: #### L IPID, CMP, T7, BNP, TSH #### [facility] [address] [place] [address] Dr. David Das PLT 200 103/ul Normal 150-450 [facility] Comment on above: Performed By: #### L IPID, CMP, T7, BNP, TSH #### [facility] [address] [place] [address] Dr. David Das RBC 4.76 106/ul Normal 4.20-5.40 [facility] Comment on above: Performed By: #### L IPID, CMP, T7, BNP, TSH #### [facility] [address] [address] [address] David Das WBC 5.5 103/ul Normal 4.0-11.0 [facility] Comment on above: Performed By: #### L IPID, CMP, T7, BNP, TSH #### [facility] [address] [address] [address] David Das FREE THYROXINE INDEX T7on FTI 2.38 Normal 1.30-4.50 [facility] Comment on above: Performed By: #### L IPID, CMP, T7, BNP, TSH #### [facility] [address] [address] [address] David Das T3U 33.0 % Normal 30.0-39.0 [facility] Comment on above: Performed By: #### L IPID, CMP, T7, BNP, TSH #### [facility] [address] [place] [address] Dr. David Das T4 [Mass/Vol] 7.20 ug/dL Normal 4.80-13.90 [facility] Comment on above: Performed By: #### L IPID, CMP, T7, BNP, TSH #### [facility] [address] [place] [address] Dr. David Das GLYCOHEMOGLOBIN A1Con 2021 ADA RECOMMENDATION SEE BELOW Normal [facility] Comment on above: Result Comment: ADA RECOMMENDED LIMIT 4.0 - 6.0 ADA THERAPEUTIC TARGET < 7.0 ACTION SUGGESTED > 7.0 Performed By: #### L IPID, CMP, T7, BNP, TSH #### [facility] [address] [place] [address] Dr. David Das Glucose [Mass/Vol] 103 mg/dL Normal [facility] Comment on above: Performed By: #### L IPID, CMP, T7, BNP, TSH #### [facility] [address] [place] [address] Dr. David Das HbA1c (Bld) [Mass fraction] 5.2 % Normal 4.5-6.2 [facility] Comment on above: Performed By: #### L IPID, CMP, T7, BNP, TSH #### [facility] [address] [address] [address] David Das IRONon 11-03-2022 Iron [Mass/Vol] 117.0 ug/dL Normal 50.0-170.0 [facility] Comment on above: Performed By: #### L IPID, CMP, T7, BNP, TSH #### [facility] [address] [address] [address] David Das LIPID PROFILEon 11-03-2022 CHOL-HDL RATIO NORM SEE BELOW Normal [facility] Comment on above: Result Comment: 3.3 - 4.4 LOW RISK 4.4 - 7.1 AVERAGE RISK 7.1 - 11.0 MODERATE RISK >11.0 HIGH RISK Performed By: #### L IPID, CMP, T7, BNP, TSH #### [facility] [address] [address] [address] David Das Cholesterol [Mass/Vol] 120 mg/dL Normal <=200 [facility] Comment on above: Performed By: #### L IPID, CMP, T7, BNP, TSH #### [facility] [address] [address] [address] David Das Cholesterol in HDL [Mass/Vol] 54 mg/dL Normal 40-60 [facility] Comment on above: Performed By: #### L IPID, CMP, T7, BNP, TSH #### [facility] [address] [address] [address] David Das Cholesterol in LDL [Mass/Vol] 56.8 mg/dL Normal [facility] Comment on above: Performed By: #### L IPID, CMP, T7, BNP, TSH #### [facility] [address] [address] [address] David Das Cholesterol.total/Ch olesterol in HDL [Mass ratio] 2.2 {ratio} Normal [facility] Comment on above: Performed By: #### L IPID, CMP, T7, BNP, TSH #### [facility] [address] [address] [address] David Das HDL NORMAL > or = 60 mg/dl - LOW CARDIOVASCULAR RISK <40 mg/dl - HIGH CARDIOVASCULAR RISK Normal [facility] Comment on above: Performed By: #### L IPID, CMP, T7, BNP, TSH #### [facility] [address] [address] [address] David Das LDL CALC NORMAL SEE BELOW Normal [facility] Comment on above: Result Comment: <100 mg/dl OPTIMAL 100 - 129 mg/dl NEAR OR ABOVE OPTIMAL 130 - 159 mg/dl BORDERLINE HIGH 160 - 189 mg/dl HIGH >190 mg/dl VERY HIGH Performed By: #### L IPID, CMP, T7, BNP, TSH #### [facility] [address] [address] [address] David Das Triglyceride [Mass/Vol] 46 mg/dL Normal <=150 [facility] Comment on above: Performed By: #### L IPID, CMP, T7, BNP, TSH #### [facility] [address] [address] [address] David Das VLDL CALC 9.2 mg/dL Normal [facility] Comment on above: Performed By: #### L IPID, CMP, T7, BNP, TSH #### [facility] [address] [address] [address] David Das PROF 14(COMP METB)on 022 Albumin [Mass/Vol] 4.1 g/dL Normal 3.4-5.0 [facility] Comment on above: Performed By: #### L IPID, CMP, T7, BNP, TSH #### [facility] [address] [address] [address] David Das Albumin/Globulin [Mass ratio] 1.2 {ratio} Normal [facility] Comment on above: Performed By: #### L IPID, CMP, T7, BNP, TSH #### [facility] [address] [address] [address] David Das ALP [Catalytic activity/Vol] 50 U/L Normal 46-116 [facility] Comment on above: Performed By: #### L IPID, CMP, T7, BNP, TSH #### [facility] [address] [place] [address] Dr. David Das ALT [Catalytic activity/Vol] 15 U/L Normal 14-59 [facility] Comment on above: Performed By: #### L IPID, CMP, T7, BNP, TSH #### [facility] [address] [place] [address] Dr. David Das Anion gap [Moles/Vol] 11.0 mmol/L Normal [facility] Comment on above: Performed By: #### L IPID, CMP, T7, BNP, TSH #### [facility] [address] [address] [address] David Das AST [Catalytic activity/Vol] 16 U/L Normal 15-37 [facility] Comment on above: Performed By: #### L IPID, CMP, T7, BNP, TSH #### [facility] [address] [place] [address] Dr. David Das Bilirubin [Mass/Vol] 0.5 mg/dL Normal 0.2-1.0 [facility] Comment on above: Performed By: #### L IPID, CMP, T7, BNP, TSH #### [facility] [address] [place] [address] Dr. David Das Calcium [Mass/Vol] 8.7 mg/dL Normal 8.5-10.1 [facility] Comment on above: Performed By: #### L IPID, CMP, T7, BNP, TSH #### [facility] [address] [place] [address] Dr. David Das Chloride [Moles/Vol] 104 mmol/L Normal 98-107 [facility] Comment on above: Performed By: #### L IPID, CMP, T7, BNP, TSH #### [facility] [address] [place] [address] Dr. David Das CO2 [Moles/Vol] 31.4 mmol/L Normal 21.0-32.0 [facility] Comment on above: Performed By: #### L IPID, CMP, T7, BNP, TSH #### [facility] [address] [place] [address] Dr. David Das Creatinine [Mass/Vol] 0.64 mg/dL Normal 0.55-1.02 [facility] Comment on above: Performed By: #### L IPID, CMP, T7, BNP, TSH #### [facility] [address] [address] [address] David Das EGFR-AF KENYAN >60 Normal >=60 [facility] Comment on above: Performed By: #### L IPID, CMP, T7, BNP, TSH #### [facility] [address] [address] [address] David Das EGFR-NON AF KENYAN >60 Normal >=60 [facility] Comment on above: Performed By: #### L IPID, CMP, T7, BNP, TSH #### [facility] [address] [place] [address] Dr. David Das Globulin (S) [Mass/Vol] 3.4 g/dL Normal [facility] Comment on above: Performed By: #### L IPID, CMP, T7, BNP, TSH #### [facility] [address] [address] [address] David Das Glucose [Mass/Vol] 92 mg/dL Normal 74-106 [facility] Comment on above: Performed By: #### L IPID, CMP, T7, BNP, TSH #### [facility] [address] [address] [address] David Das Potassium [Moles/Vol] 4.4 mmol/L Normal 3.5-5.1 [facility] Comment on above: Performed By: #### L IPID, CMP, T7, BNP, TSH #### [facility] [address] [place] [address] Dr. David Das Protein [Mass/Vol] 7.5 g/dL Normal 6.4-8.2 [facility] Comment on above: Performed By: #### L IPID, CMP, T7, BNP, TSH #### [facility] [address] [address] [address] David Das Sodium [Moles/Vol] 142 mmol/L Normal 136-145 [facility] Comment on above: Performed By: #### L IPID, CMP, T7, BNP, TSH #### [facility] [address] [address] [address] David Das Urea nitrogen [Mass/Vol] 11.0 mg/dL Normal 7.0-18.0 [facility] Comment on above: Performed By: #### L IPID, CMP, T7, BNP, TSH #### [facility] [address] [address] [address] David Das Urea nitrogen/Creatinine [Mass ratio] 17.2 mg/mg Normal [facility] Comment on above: Performed By: #### L IPID, CMP, T7, BNP, TSH #### [facility] [address] [place] [address] Dr. David Das TSHon 11-03-2022 TSH 1.923 uIU/mL Normal 0.358-3.740 [facility] Comment on above: Performed By: #### L IPID, CMP, T7, BNP, TSH #### [facility] [address] [address] [address] David Das Covid-19 PCR (CVDTBH)on 05-17 SARS-CoV-2 (COVID-19) RNA BACILIO+probe Ql (Unsp spec) Detected Critically abnormal NOT DETECTED [facility] Comment on above: Result Comment: This test is not yet approved or cleared by the [place] FDA. When there are no FDA-approved or cleared tests available, and other criteria are met, FDA can make tests available under an emergency access mechanism called an Emergency Use Authorization (EUA). The EUA for this test is supported by the Prototype Engineer Manager of Health and Human Service's declaration that [...] used). Performed By: #### C VDTBH #### [facility] [address] [place] [address] Dr. David Das PAP ACOG PANEL 2: 21 to 29on 05-23-2022 . . Normal [facility] Comment on above: Performed By: #### L IPID, CMP, T7, BNP, TSH #### [facility] [address] [address] [address] David Das Age Gdln ACOG Testing 19- [facility] Comment on above: Performed By: #### L IPID, CMP, T7, BNP, TSH #### [facility] [address] [address] [address] David Das DIAGNOSIS: Comment [facility] Comment on above: Result Comment: NEGA TIVE FOR INTRAEPITHELIAL LESION OR MALIGNANCY. Performed By: #### L IPID, CMP, T7, BNP, TSH #### [facility] [address] [address] [address] David Das Methodology: Comment [facility] Comment on above: Result Comment: This liquid based ThinPrep(R) pap test was screened with the use of an image guided system. Performed By: #### L IPID, CMP, T7, BNP, TSH #### [facility] [address] [address] [address] David Das Note: Comment [facility] Comment on above: Result Comment: The [...] L IPID, CMP, T7, BNP, TSH #### [facility] [address] [address] [address] David Das Performed by: Comment Normal [facility] Comment on above: Result Comment: Cayla Jay Assistant Account Executive (ASCP) Performed By: #### L IPID, CMP, T7, BNP, TSH #### [facility] [address] [address] [address] David Das Reflex Criteria: Comment [facility] Comment on above: Result Comment: The HPV DNA reflex criteria were not met with this specimen result therefore, no HPV testing was performed. . Performed By: #### L IPID, CMP, T7, BNP, TSH #### [facility] [address], [place] [address] Dr. David Das Specimen adequacy: Comment Normal [facility] Comment on above: Result Comment: Sati sfactory for evaluation. Endocervical and/or squamous metaplastic cells (endocervical component) are present. Areas of partially obscuring inflammatory exudate are present. Performed By: #### L IPID, CMP, T7, BNP, TSH #### [facility] [address], [place] [address] Dr. David Das XR FOOT RT MIN 3 VIEWSon XR FOOT RT MIN 3 VIEWS IMAGES REVIEWED: XR FOOT RT MIN 3 VIEWS COMPARISON: None available. CLINICAL INDICATION: Pain, no injury. FINDINGS/IMPRESSION: Unremarkable radiographic appearance of the right foot. Electronically authenticated by: VIVIEN NOONAN Date: 2022-03-27 20:26 Normal [facility] Pathology Noteon 02-24-2022 Pathology Note [id number] #[id number]:127 Normal [facility] Ambulatory Visit Summaryon 0 02-19-2022 Ambulatory [...] (irritable bowel syndrome) Orthostatic hypotension Scoliosis Normal [facility] General Surgery Office/Clini c Noteon 02-19-2022 [...] influenza virus vaccine, inactivated 07/2021 Recorded Normal [facility] Comment on above: Result Comment: Elec tronically Signed By: CHAMP FUENTES, Marleni Fletcher\Date and Time Signed: 02/19/22 17:00 EDT Facesheeton 02-12-2022 Facesheet [id number] #[id number]:127 Normal [facility] BNPon 02-01-2022 Natriuretic peptide B (Bld) [Mass/Vol] 64.0 pg/mL Normal <=450.0 [facility] Comment on above: Performed By: #### L IPID, CMP, T7, BNP, TSH #### [facility] [address] [address] [address] David Das CBC AUTO DIFFon 02-01-2022 BASO # 0.0 103/ul Normal 0.0-0.1 [facility] Comment on above: Performed By: #### L IPID, CMP, T7, BNP, TSH #### [facility] [address], [place] [address] Dr. David Das Basophils/100 WBC (Bld) 0.4 % Normal 0.2-2.0 [facility] Comment on above: Performed By: #### L IPID, CMP, T7, BNP, TSH #### [facility] [address] [place] [address] Dr. David Das EO # 0.1 103/ul Normal 0.0-0.7 [facility] Comment on above: Performed By: #### L IPID, CMP, T7, BNP, TSH #### [facility] [address] [place] [address] Dr. David Das Eosinophils/100 WBC (Bld) 1.8 % Normal 0.9-7.0 [facility] Comment on above: Performed By: #### L IPID, CMP, T7, BNP, TSH #### [facility] [address] [place] [address] Dr. David Das Erythrocyte distribution width (RBC) [Ratio] 12.5 % Normal 11.0-15.0 [facility] Comment on above: Performed By: #### L IPID, CMP, T7, BNP, TSH #### [facility] [address] [place] [address] Dr. David Das Hematocrit (Bld) [Volume fraction] 43.6 % Normal 36.0-48.0 [facility] Comment on above: Performed By: #### L IPID, CMP, T7, BNP, TSH #### [facility] [address] [place] [address] Dr. David Das Hemoglobin (Bld) [Mass/Vol] 14.2 g/dL Normal 12.0-16.0 [facility] Comment on above: Performed By: #### L IPID, CMP, T7, BNP, TSH #### [facility] [address] [place] [address] Dr. David Das IG # 0.01 10e3/ul Normal 0.00-0.03 [facility] Comment on above: Performed By: #### L IPID, CMP, T7, BNP, TSH #### [facility] [address] [place] [address] Dr. David Das IG % 0.2 % Normal 0.0-0.5 [facility] Comment on above: Performed By: #### L IPID, CMP, T7, BNP, TSH #### [facility] [address] [place] [address] Dr. David Das LYMPH # 1.8 103/ul Normal 1.2-3.8 [facility] Comment on above: Performed By: #### L IPID, CMP, T7, BNP, TSH #### [facility] [address] [place] [address] Dr. David Das Lymphocytes/100 WBC (Bld) 32.0 % Normal 20.5-60.0 [facility] Comment on above: Performed By: #### L IPID, CMP, T7, BNP, TSH #### [facility] [address] [place] [address] Dr. David Das MANUAL DIFF REQ NO Normal [facility] Comment on above: Performed By: #### L IPID, CMP, T7, BNP, TSH #### [facility] [address] [place] [address] Dr. David Das MCH (RBC) [Entitic mass] 30.8 pg Normal 26.7-34.0 [facility] Comment on above: Performed By: #### L IPID, CMP, T7, BNP, TSH #### [facility] [address] [place] [address] Dr. David Das MCHC (RBC) [Mass/Vol] 32.6 g/dL Normal 29.9-35.2 [facility] Comment on above: Performed By: #### L IPID, CMP, T7, BNP, TSH #### [facility] [address] [place] [address] Dr. David Das MCV (RBC) [Entitic vol] 94.6 fL Normal 81.0-99.0 [facility] Comment on above: Performed By: #### L IPID, CMP, T7, BNP, TSH #### [facility] [address] [place] [address] Dr. David Das MONO # 0.4 103/ul Normal 0.3-0.8 [facility] Comment on above: Performed By: #### L IPID, CMP, T7, BNP, TSH #### [facility] [address] [place] [address] Dr. David Das Monocytes/100 WBC (Bld) 6.5 % Normal 1.7-12.0 [facility] Comment on above: Performed By: #### L IPID, CMP, T7, BNP, TSH #### [facility] [address] [place] [address] Dr. David Das NEUT # 3.3 103/ul Normal 1.4-6.5 [facility] Comment on above: Performed By: #### L IPID, CMP, T7, BNP, TSH #### [facility] [address] [place] [address] Dr. David Das Neutrophils/100 WBC (Bld) 59.1 % Normal 43.0-75.0 [facility] Comment on above: Performed By: #### L IPID, CMP, T7, BNP, TSH #### [facility] [address] [place] [address] Dr. David Das Platelet mean volume (Bld) [Entitic vol] 10.5 fL Normal 9.5-13.5 [facility] Comment on above: Performed By: #### L IPID, CMP, T7, BNP, TSH #### [facility] [address] [place] [address] Dr. David Das PLT 195 103/ul Normal 150-450 [facility] Comment on above: Performed By: #### L IPID, CMP, T7, BNP, TSH #### [facility] [address] [place] [address] Dr. David Das RBC 4.61 106/ul Normal 4.20-5.40 [facility] Comment on above: Performed By: #### L IPID, CMP, T7, BNP, TSH #### [facility] [address] [place] [address] Dr. David Das WBC 5.7 103/ul Normal 4.0-11.0 [facility] Comment on above: Performed By: #### L IPID, CMP, T7, BNP, TSH #### [facility] [address] [place] [address] Dr. David Das FREE THYROXINE INDEX T7on FTI 2.41 Normal [facility] Comment on above: Performed By: #### L IPID, CMP, T7, BNP, TSH #### [facility] [address] [address] [address] David Das T3U 33.0 % Normal 23.5-40.5 [facility] Comment on above: Performed By: #### L IPID, CMP, T7, BNP, TSH #### [facility] [address] [address] [address] David Das T4 [Mass/Vol] 7.30 ug/dL Normal 5.53-11.00 [facility] Comment on above: Performed By: #### L IPID, CMP, T7, BNP, TSH #### [facility] [address] [address] [address] David Das GLYCOHEMOGLOBIN A1Con 2021 ADA RECOMMENDATION ADA THERAPEUTIC TARGET 6.0 - 7.0 ACTION SUGGESTED > 7.0 Normal [facility] Comment on above: Performed By: #### A 1C #### [facility] [address] [address] [address] David Das Glucose [Mass/Vol] 100 mg/dL Normal [facility] Comment on above: Performed By: #### A 1C #### [facility] [address] [address] [address] David Das HbA1c (Bld) [Mass fraction] 5.1 % Normal <=6.0 [facility] Comment on above: Performed By: #### A 1C #### [facility] [address] [address] [address] David Das IRONon 02-01-2022 Iron [Mass/Vol] 101.0 ug/dL Normal 37.0-170.0 [facility] Comment on above: Performed By: #### L IPID, CMP, T7, BNP, TSH #### [facility] [address] [address] [address] David Das LIPID PROFILEon 02-01-2022 CHOL-HDL RATIO NORM SEE BELOW Normal [facility] Comment on above: Result Comment: 3.3 - 4.4 LOW RISK 4.4 - 7.1 AVERAGE RISK 7.1 - 11.0 MODERATE RISK >11.0 HIGH RISK Performed By: #### L IPID, CMP, T7, BNP, TSH #### [facility] [address] [address] [address] David Das Cholesterol [Mass/Vol] 123 mg/dL Normal <=200 [facility] Comment on above: Performed By: #### L IPID, CMP, T7, BNP, TSH #### [facility] [address] [address] [address] David Das Cholesterol in HDL [Mass/Vol] 44 mg/dL Normal 40-60 [facility] Comment on above: Performed By: #### L IPID, CMP, T7, BNP, TSH #### [facility] [address] [address] [address] David Das Cholesterol in LDL [Mass/Vol] 63.2 mg/dL Normal [facility] Comment on above: Performed By: #### L IPID, CMP, T7, BNP, TSH #### [facility] [address] [address] [address] David Das Cholesterol.total/Ch olesterol in HDL [Mass ratio] 2.8 {ratio} Normal [facility] Comment on above: Performed By: #### L IPID, CMP, T7, BNP, TSH #### [facility] [address] [address] [address] David Das HDL NORMAL > or = 60 mg/dl - LOW CARDIOVASCULAR RISK <40 mg/dl - HIGH CARDIOVASCULAR RISK Normal [facility] Comment on above: Performed By: #### L IPID, CMP, T7, BNP, TSH #### [facility] [address] [address] [address] David Das LDL CALC NORMAL SEE BELOW Normal [facility] Comment on above: Result Comment: <100 mg/dl OPTIMAL 100 - 129 mg/dl NEAR OR ABOVE OPTIMAL 130 - 159 mg/dl BORDERLINE HIGH 160 - 189 mg/dl HIGH >190 mg/dl VERY HIGH Performed By: #### L IPID, CMP, T7, BNP, TSH #### [facility] [address] [address] [address] David Das Triglyceride [Mass/Vol] 79 mg/dL Normal <=150 [facility] Comment on above: Performed By: #### L IPID, CMP, T7, BNP, TSH #### [facility] [address] [address] [address] David Das VLDL CALC 15.8 mg/dL Normal [facility] Comment on above: Performed By: #### L IPID, CMP, T7, BNP, TSH #### [facility] [address] [address] [address] David Das PROF 14(COMP METB)on 022 Albumin [Mass/Vol] 3.9 g/dL Normal 3.4-5.0 [facility] Comment on above: Performed By: #### L IPID, CMP, T7, BNP, TSH #### [facility] [address] [address] [address] David Das Albumin/Globulin [Mass ratio] 1.2 {ratio} Normal [facility] Comment on above: Performed By: #### L IPID, CMP, T7, BNP, TSH #### [facility] [address] [address] [address] David Das ALP [Catalytic activity/Vol] 49 U/L Normal 46-116 [facility] Comment on above: Performed By: #### L IPID, CMP, T7, BNP, TSH #### [facility] [address] [address] [address] David Das ALT [Catalytic activity/Vol] 13 U/L Critically low 14-59 [facility] Comment on above: Performed By: #### L IPID, CMP, T7, BNP, TSH #### [facility] [address] [address] [address] David Das Anion gap [Moles/Vol] 12.6 mmol/L Normal [facility] Comment on above: Performed By: #### L IPID, CMP, T7, BNP, TSH #### [facility] [address] [address] [address] David Das AST [Catalytic activity/Vol] 10 U/L Critically low 15-37 [facility] Comment on above: Performed By: #### L IPID, CMP, T7, BNP, TSH #### [facility] [address] [place] [address] Dr. David Das Bilirubin [Mass/Vol] 0.4 mg/dL Normal 0.2-1.3 [facility] Comment on above: Performed By: #### L IPID, CMP, T7, BNP, TSH #### [facility] [address] [place] [address] Dr. David Das Calcium [Mass/Vol] 8.7 mg/dL Normal 8.5-10.1 [facility] Comment on above: Performed By: #### L IPID, CMP, T7, BNP, TSH #### [facility] [address] [place] [address] Dr. David Das Chloride [Moles/Vol] 106 mmol/L Normal 98-107 [facility] Comment on above: Performed By: #### L IPID, CMP, T7, BNP, TSH #### [facility] [address] [place] [address] Dr. David Das CO2 [Moles/Vol] 27.9 mmol/L Normal 22.0-30.0 [facility] Comment on above: Performed By: #### L IPID, CMP, T7, BNP, TSH #### [facility] [address] [place] [address] Dr. David Das Creatinine [Mass/Vol] 0.69 mg/dL Normal 0.52-1.04 [facility] Comment on above: Performed By: #### L IPID, CMP, T7, BNP, TSH #### [facility] [address] [place] [address] Dr. David Das EGFR-AF KENYAN >60 Normal >=60 [facility] Comment on above: Performed By: #### L IPID, CMP, T7, BNP, TSH #### [facility] [address] [address] [address] David Das EGFR-NON AF KENYAN >60 Normal >=60 [facility] Comment on above: Performed By: #### L IPID, CMP, T7, BNP, TSH #### [facility] [address] [place] [address] Dr. David Das Globulin (S) [Mass/Vol] 3.2 g/dL Normal [facility] Comment on above: Performed By: #### L IPID, CMP, T7, BNP, TSH #### [facility] [address] [place] [address] Dr. David Das Glucose [Mass/Vol] 104 mg/dL Normal 74-106 [facility] Comment on above: Performed By: #### L IPID, CMP, T7, BNP, TSH #### [facility] [address] [place] [address] Dr. David Das Potassium [Moles/Vol] 4.5 mmol/L Normal 3.4-5.0 [facility] Comment on above: Performed By: #### L IPID, CMP, T7, BNP, TSH #### [facility] [address] [place] [address] Dr. David Das Protein [Mass/Vol] 7.1 g/dL Normal 6.1-8.2 [facility] Comment on above: Performed By: #### L IPID, CMP, T7, BNP, TSH #### [facility] [address] [place] [address] Dr. David Das Sodium [Moles/Vol] 142 mmol/L Normal 137-145 [facility] Comment on above: Performed By: #### L IPID, CMP, T7, BNP, TSH #### [facility] [address] [place] [address] Dr. David Das Urea nitrogen [Mass/Vol] 12.0 mg/dL Normal 7.0-18.0 [facility] Comment on above: Performed By: #### L IPID, CMP, T7, BNP, TSH #### [facility] [address] [place] [address] Dr. David Das Urea nitrogen/Creatinine [Mass ratio] 17.4 mg/mg Normal [facility] Comment on above: Performed By: #### L IPID, CMP, T7, BNP, TSH #### [facility] [address] [address] [address] David Das TSHon 02-01-2022 TSH 1.718 uIU/mL Normal 0.470-4.680 [facility] Comment on above: Performed By: #### L IPID, CMP, T7, BNP, TSH #### [facility] [address] [place] [address] Dr. David Das TSH RANGE SEE BELOW Normal [facility] Comment on above: Result Comment: <0.3 4 UIU/ml HYPERTHYROID 0.34-5.60 UIU/ml EUTHYROID >5.60 UIU/ml HYPOTHYROID Performed By: #### L IPID, CMP, T7, BNP, TSH #### [facility] [address] [place] [address] Dr. David Das Physician Referralon 022 Physician Referral [id number] #[id number] Normal [facility] Covid-19 PCR ([facility])on 12-18 SARS-CoV-2 (COVID-19) RNA BACILIO+probe Ql (Unsp spec) Not detected Normal NOT DETECTED [facility] Comment on above: Result Comment: This test is not yet approved or cleared by the [place] FDA. When there are no FDA-approved or cleared tests available, and other criteria are met, FDA can make tests available under an emergency access mechanism called an Emergency Use Authorization (EUA). The EUA for this test is supported by the [place] of Health and Human Service's (HHS's) declaration [...] SARS-CoV-2. Performed By: #### C VDTB #### [facility] [address] [address] [address] David Das Encounters Encounter Date Encounter [...] EST Routine [facility] [address] [place] [address] Gonzales Cutler, DO [address] [place] [address] [facility] Start: 07-17-2023 Influenza vaccination [...] Payer Category Payer Unknown BCBS BCBS xxxxxx [id number] 2023-Present [phone] [address] [place] [address] [id number] 2023 Unknown [id number] 1993 Unknown [id number] ..[id number] 1993 Unknown [id number] ..840.1.404160.3.579.2.593 1993 Unknown [id number] 2..840.1.475219.3.579.2.593 1993 Unknown [id number] 2.16.840.1.234512.3.579.2.593 1993 Unknown [id number] 2.16.840.1.336272.3.579.2.593 1993 Unknown [id number] 2.16.840.1.681713.3.579.2.593 1993 Unknown [id number] 2.16.840.1.473948.3.579.2.593 1993 Unknown [id number] 2.16.840.1.726290.3.579.2.593 1993 Unknown [id number] 2.16.840.1.817931.3.579.2.593 1993 Unknown [id number] 2.16.840.1.408014.3.579.2.1259 1993 Unknown [id number] 2.16.840.1.357192.3.579.2.1259 1993 Unknown [id number] 2.16.840.1.474697.3.579.2.1259 1993 Unknown [id number] 2.16.840.1.420276.3.579.2.1259 1993 Unknown [id number] 2.16840.1.582896.3.579.2.1259 1993 Unknown [id number] 2.16.840.1.676403.3.579.2.1259 1993 Unknown [id number] 2.16.840.1.474515.3.579.2.1259 1993 Unknown [id number] 2.16.840.1.916227.3.579.2.1259 1959 Self-pay 1959 Unknown [id number] 1959 Unknown [id number] 1959 Unknown [id number] 1959 Unknown [id number] Social History Date Type Detail Facility [facility]: [facility] Start: 07-01-2023 [...] Status influenza virus vaccine, inactivated 07/2021 Recorded [facility] Comment on above: Result Comment: Elec [...] and content) DATE CREATED AUTHOR 02/25/[address] [facility] DATE CREATED AUTHOR AUTHOR'S ORGANIZ ATION 11/13/2022 [facility] DATE CREATED AUTHOR AUTHOR'S ORGANIZ ATION 05/11/2024 [facility] EPIC FOR RECORDS PERTAINING [...] BE BASED ON THE PRIMARY CLINICAL RECORDS. [facility] [employer] [facility]. provides no warranty or guarantee of the accuracy or completeness of information in this document.
[2024-05-31 15:10] VITALS: BP 108/68; PULSE 90
== END 2024-05-31 15:58 | disposition home or self-care (01) ==
LOC: US 14:22 → FBC 14:41
PROVIDERS: Visit Provider Obstetrics & Gynecology
DX: Z33.3 Pregnant state, gestational carrier (principal); Z3A.37 37 weeks gestation of pregnancy
CPT/HCPCS: 76818

== ENCOUNTER 2024-06-02 05:05 | Inpatient (IN) | payer BC, SELFPAY ==
[2024-06-02] VITALS (20 sets, daily range): BP systolic 98–120; BP diastolic 56–78; PULSE 65–108; TEMP 36.5–37.2; O2SAT 98
--- OUTSIDE RECORDS SUMMARY | 2024-06-02 05:10 | XMS_ITS | CCD ---
Author Organization [facility] CliniSyct Care Team Providers Care Endoscopy Technican Name Role Phone TARAS, DR EARLY Admitting [...] vomiting 30 tablet 2 12/09/2023 01/08/2024 Active Qlbiqwuk-Hcv-Yv-FA ( 1 + IRON PO) (1 source) Wuwiptdo-Gck-Gj-FA ( 1 + IRON PO) Take 1 [...] 13.3 % 11.0 - 15.0 % [facility] Hematocrit (Bld) [Volume fraction] 36.6 % 36.0 - 48.0 % [facility] Hemoglobin (Bld) [Mass/Vol] 12.2 g/dL 12.0 - 16.0 g/dL [facility] IMMATURE GRANULOCYTES ABS AUTO 0.04 High [facility] Immature granulocytes/100 WBC (Bld) 0.5 % 0.0 - 0.5 % [facility] Interpretation and review of laboratory results Abnormal [facility] LYMPHOCYTES ABSOLUTE AUTO 2.0 [facility] Lymphocytes/100 WBC (Bld) 23.3 % 20.5 - 60.0 % [facility] MCH (RBC) [Entitic mass] 31.5 pg 26.7 - 34.0 pg [facility] MCHC (RBC) [Mass/Vol] 33.3 g/dL 29.9 - 35.2 g/dL [facility] MCV (RBC) [Entitic vol] 94.6 fL 81.0 - 99.0 fL [facility] MONOCYTES ABSOLUTE AUTO 0.5 [facility] Monocytes/100 WBC (Bld) 6.3 % 1.7 - 12.0 % [facility] NEUTROPHILS ABSOLUTE AUTO 6.0 [facility] Neutrophils/100 WBC (Bld) 69.0 % 43.0 - 75.0 % [facility] Platelet mean volume (Bld) [Entitic vol] 11.3 fL 9.5 - 13.5 fL [facility] TBH EO # 0.1 [facility] TBH PLT 208 [facility]H RBC 3.87 Low [facility] WBC 8.6 [facility] CHLAMYDIA/GONOCOCCUS BACILIO (SW AB/URINE/PAPon 11-07-2022 Chlamydia trachomatis, BACILIO Negative Normal Negative [facility] Comment on above: Performed By: #### L IPID, CMP, T7, BNP, TSH #### [facility] [address] [place], [place] [address] Dr. David Das Neisseria gonorrhoeae, BACILIO Negative Normal Negative [facility] Comment on above: Performed By: #### L IPID, CMP, T7, BNP, TSH #### [facility] [address] [place], [place] [address] Dr. David Das US PELVIS AND TRANSVAGon [...] 11-06-2022 Angelia species Negative Normal Negative [facility] Comment on above: Performed By: #### V AGINT #### [facility] [address] [address] [address] David Das Gardnerella vaginalis Negative Normal Negative [facility] Comment on above: Performed By: #### V AGINT #### [facility] [address] [address] [address] David Das Trichomonas vaginalis Negative Normal Negative [facility] Comment on above: Performed By: #### V AGINT #### [facility] [address] [address] [address] David Das INSULINon 11-04-2022 Insulin 17.4 uIU/mL Normal 2.6-24.9 [facility] Comment on above: Performed By: #### I NSULIN #### [facility] [address] [address] [address] David Das CBC AUTO DIFFon 11-03-2022 BASO # 0.0 103/ul Normal 0.0-0.1 [facility] Comment on above: Performed By: #### L IPID, CMP, T7, BNP, TSH #### [facility] [address] [place] [address] Dr. David Das Basophils/100 WBC (Bld) 0.4 % Normal 0.2-2.0 [facility] Comment on above: Performed By: #### L IPID, CMP, T7, BNP, TSH #### [facility] [address] [place] [address] Dr. David Das EO # 0.1 103/ul Normal 0.0-0.7 [facility] Comment on above: Performed By: #### L IPID, CMP, T7, BNP, TSH #### [facility] [address] [place] [address] Dr. David Das Eosinophils/100 WBC (Bld) 1.4 % Normal 0.9-7.0 [facility] Comment on above: Performed By: #### L IPID, CMP, T7, BNP, TSH #### [facility] [address] [place] [address] Dr. David Das Erythrocyte distribution width (RBC) [Ratio] 12.4 % Normal 11.0-15.0 [facility] Comment on above: Performed By: #### L IPID, CMP, T7, BNP, TSH #### [facility] [address] [place] [address] Dr. David Das Hematocrit (Bld) [Volume fraction] 43.8 % Normal 36.0-48.0 [facility] Comment on above: Performed By: #### L IPID, CMP, T7, BNP, TSH #### [facility] [address] [place] [address] Dr. David Das Hemoglobin (Bld) [Mass/Vol] 14.6 g/dL Normal 12.0-16.0 [facility] Comment on above: Performed By: #### L IPID, CMP, T7, BNP, TSH #### [facility] [address] [place] [address] Dr. David Das IG # 0.01 10e3/ul Normal 0.00-0.03 [facility] Comment on above: Performed By: #### L IPID, CMP, T7, BNP, TSH #### [facility] [address] [place] [address] Dr. David Das IG % 0.2 % Normal 0.0-0.5 [facility] Comment on above: Performed By: #### L IPID, CMP, T7, BNP, TSH #### [facility] [address] [place] [address] Dr. David Das LYMPH # 1.8 103/ul Normal 1.2-3.8 [facility] Comment on above: Performed By: #### L IPID, CMP, T7, BNP, TSH #### [facility] [address] [place] [address] Dr. David Das Lymphocytes/100 WBC (Bld) 33.3 % Normal 20.5-60.0 [facility] Comment on above: Performed By: #### L IPID, CMP, T7, BNP, TSH #### [facility] [address] [place] [address] Dr. David Das MANUAL DIFF REQ NO Normal [facility] Comment on above: Performed By: #### L IPID, CMP, T7, BNP, TSH #### [facility] [address] [place] [address] Dr. David Das MCH (RBC) [Entitic mass] 30.7 pg Normal 26.7-34.0 [facility] Comment on above: Performed By: #### L IPID, CMP, T7, BNP, TSH #### [facility] [address] [place] [address] Dr. David Das MCHC (RBC) [Mass/Vol] 33.3 g/dL Normal 29.9-35.2 [facility] Comment on above: Performed By: #### L IPID, CMP, T7, BNP, TSH #### [facility] [address] [place] [address] Dr. David Das MCV (RBC) [Entitic vol] 92.0 fL Normal 81.0-99.0 [facility] Comment on above: Performed By: #### L IPID, CMP, T7, BNP, TSH #### [facility] [address] [place] [address] Dr. David Das MONO # 0.4 103/ul Normal 0.3-0.8 [facility] Comment on above: Performed By: #### L IPID, CMP, T7, BNP, TSH #### [facility] [address] [place] [address] Dr. David Das Monocytes/100 WBC (Bld) 7.6 % Normal 1.7-12.0 [facility] Comment on above: Performed By: #### L IPID, CMP, T7, BNP, TSH #### [facility] [address] [place] [address] Dr. David Das NEUT # 3.2 103/ul Normal 1.4-6.5 [facility] Comment on above: Performed By: #### L IPID, CMP, T7, BNP, TSH #### [facility] [address] [place] [address] Dr. David Das Neutrophils/100 WBC (Bld) 57.1 % Normal 43.0-75.0 [facility] Comment on above: Performed By: #### L IPID, CMP, T7, BNP, TSH #### [facility] [address] [place] [address] Dr. David Das Platelet mean volume (Bld) [Entitic vol] 10.5 fL Normal 9.5-13.5 [facility] Comment on above: Performed By: #### L IPID, CMP, T7, BNP, TSH #### [facility] [address] [place] [address] Dr. David Das PLT 200 103/ul Normal 150-450 [facility] Comment on above: Performed By: #### L IPID, CMP, T7, BNP, TSH #### [facility] [address] [place] [address] Dr. David Das RBC 4.76 106/ul Normal 4.20-5.40 [facility] Comment on above: Performed By: #### L IPID, CMP, T7, BNP, TSH #### [facility] [address] [address] [address] David Das WBC 5.5 103/ul Normal 4.0-11.0 [facility] Comment on above: Performed By: #### L IPID, CMP, T7, BNP, TSH #### [facility] [address] [address] [address] David Das FREE THYROXINE INDEX T7on FTI 2.38 Normal 1.30-4.50 [facility] Comment on above: Performed By: #### L IPID, CMP, T7, BNP, TSH #### [facility] [address] [address] [address] David Das T3U 33.0 % Normal 30.0-39.0 [facility] Comment on above: Performed By: #### L IPID, CMP, T7, BNP, TSH #### [facility] [address] [place] [address] Dr. David Das T4 [Mass/Vol] 7.20 ug/dL Normal 4.80-13.90 [facility] Comment on above: Performed By: #### L IPID, CMP, T7, BNP, TSH #### [facility] [address] [place] [address] Dr. David Das GLYCOHEMOGLOBIN A1Con 2021 ADA RECOMMENDATION SEE BELOW Normal [facility] Comment on above: Result Comment: ADA RECOMMENDED LIMIT 4.0 - 6.0 ADA THERAPEUTIC TARGET < 7.0 ACTION SUGGESTED > 7.0 Performed By: #### L IPID, CMP, T7, BNP, TSH #### [facility] [address] [place] [address] Dr. David Das Glucose [Mass/Vol] 103 mg/dL Normal [facility] Comment on above: Performed By: #### L IPID, CMP, T7, BNP, TSH #### [facility] [address] [place] [address] Dr. David Das HbA1c (Bld) [Mass fraction] 5.2 % Normal 4.5-6.2 [facility] Comment on above: Performed By: #### L IPID, CMP, T7, BNP, TSH #### [facility] [address] [address] [address] David Das IRONon 11-03-2022 Iron [Mass/Vol] 117.0 ug/dL Normal 50.0-170.0 [facility] Comment on above: Performed By: #### L IPID, CMP, T7, BNP, TSH #### [facility] [address] [address] [address] David Das LIPID PROFILEon 11-03-2022 CHOL-HDL RATIO NORM SEE BELOW Normal [facility] Comment on above: Result Comment: 3.3 - 4.4 LOW RISK 4.4 - 7.1 AVERAGE RISK 7.1 - 11.0 MODERATE RISK >11.0 HIGH RISK Performed By: #### L IPID, CMP, T7, BNP, TSH #### [facility] [address] [address] [address] David Das Cholesterol [Mass/Vol] 120 mg/dL Normal <=200 [facility] Comment on above: Performed By: #### L IPID, CMP, T7, BNP, TSH #### [facility] [address] [address] [address] David Das Cholesterol in HDL [Mass/Vol] 54 mg/dL Normal 40-60 [facility] Comment on above: Performed By: #### L IPID, CMP, T7, BNP, TSH #### [facility] [address] [address] [address] David Das Cholesterol in LDL [Mass/Vol] 56.8 mg/dL Normal [facility] Comment on above: Performed By: #### L IPID, CMP, T7, BNP, TSH #### [facility] [address] [address] [address] David Das Cholesterol.total/Ch olesterol in HDL [Mass ratio] 2.2 {ratio} Normal [facility] Comment on above: Performed By: #### L IPID, CMP, T7, BNP, TSH #### [facility] [address] [address] [address] David Das HDL NORMAL > or = 60 mg/dl - LOW CARDIOVASCULAR RISK <40 mg/dl - HIGH CARDIOVASCULAR RISK Normal [facility] Comment on above: Performed By: #### L IPID, CMP, T7, BNP, TSH #### [facility] [address] [address] [address] David Das LDL CALC NORMAL SEE BELOW Normal [facility] Comment on above: Result Comment: <100 mg/dl OPTIMAL 100 - 129 mg/dl NEAR OR ABOVE OPTIMAL 130 - 159 mg/dl BORDERLINE HIGH 160 - 189 mg/dl HIGH >190 mg/dl VERY HIGH Performed By: #### L IPID, CMP, T7, BNP, TSH #### [facility] [address] [address] [address] David Das Triglyceride [Mass/Vol] 46 mg/dL Normal <=150 [facility] Comment on above: Performed By: #### L IPID, CMP, T7, BNP, TSH #### [facility] [address] [address] [address] David Das VLDL CALC 9.2 mg/dL Normal [facility] Comment on above: Performed By: #### L IPID, CMP, T7, BNP, TSH #### [facility] [address] [address] [address] David Das PROF 14(COMP METB)on 022 Albumin [Mass/Vol] 4.1 g/dL Normal 3.4-5.0 [facility] Comment on above: Performed By: #### L IPID, CMP, T7, BNP, TSH #### [facility] [address] [address] [address] David Das Albumin/Globulin [Mass ratio] 1.2 {ratio} Normal [facility] Comment on above: Performed By: #### L IPID, CMP, T7, BNP, TSH #### [facility] [address] [address] [address] David Das ALP [Catalytic activity/Vol] 50 U/L Normal 46-116 [facility] Comment on above: Performed By: #### L IPID, CMP, T7, BNP, TSH #### [facility] [address] [place] [address] Dr. David Das ALT [Catalytic activity/Vol] 15 U/L Normal 14-59 [facility] Comment on above: Performed By: #### L IPID, CMP, T7, BNP, TSH #### [facility] [address] [place] [address] Dr. David Das Anion gap [Moles/Vol] 11.0 mmol/L Normal [facility] Comment on above: Performed By: #### L IPID, CMP, T7, BNP, TSH #### [facility] [address] [address] [address] David Das AST [Catalytic activity/Vol] 16 U/L Normal 15-37 [facility] Comment on above: Performed By: #### L IPID, CMP, T7, BNP, TSH #### [facility] [address] [place] [address] Dr. David Das Bilirubin [Mass/Vol] 0.5 mg/dL Normal 0.2-1.0 [facility] Comment on above: Performed By: #### L IPID, CMP, T7, BNP, TSH #### [facility] [address] [place] [address] Dr. David Das Calcium [Mass/Vol] 8.7 mg/dL Normal 8.5-10.1 [facility] Comment on above: Performed By: #### L IPID, CMP, T7, BNP, TSH #### [facility] [address] [place] [address] Dr. David Das Chloride [Moles/Vol] 104 mmol/L Normal 98-107 [facility] Comment on above: Performed By: #### L IPID, CMP, T7, BNP, TSH #### [facility] [address] [place] [address] Dr. David Das CO2 [Moles/Vol] 31.4 mmol/L Normal 21.0-32.0 [facility] Comment on above: Performed By: #### L IPID, CMP, T7, BNP, TSH #### [facility] [address] [place] [address] Dr. David Das Creatinine [Mass/Vol] 0.64 mg/dL Normal 0.55-1.02 [facility] Comment on above: Performed By: #### L IPID, CMP, T7, BNP, TSH #### [facility] [address] [address] [address] David Das EGFR-AF KENYAN >60 Normal >=60 [facility] Comment on above: Performed By: #### L IPID, CMP, T7, BNP, TSH #### [facility] [address] [address] [address] David Das EGFR-NON AF KENYAN >60 Normal >=60 [facility] Comment on above: Performed By: #### L IPID, CMP, T7, BNP, TSH #### [facility] [address] [place] [address] Dr. David Das Globulin (S) [Mass/Vol] 3.4 g/dL Normal [facility] Comment on above: Performed By: #### L IPID, CMP, T7, BNP, TSH #### [facility] [address] [address] [address] David Das Glucose [Mass/Vol] 92 mg/dL Normal 74-106 [facility] Comment on above: Performed By: #### L IPID, CMP, T7, BNP, TSH #### [facility] [address] [address] [address] David Das Potassium [Moles/Vol] 4.4 mmol/L Normal 3.5-5.1 [facility] Comment on above: Performed By: #### L IPID, CMP, T7, BNP, TSH #### [facility] [address] [place] [address] Dr. David Das Protein [Mass/Vol] 7.5 g/dL Normal 6.4-8.2 [facility] Comment on above: Performed By: #### L IPID, CMP, T7, BNP, TSH #### [facility] [address] [address] [address] David Das Sodium [Moles/Vol] 142 mmol/L Normal 136-145 [facility] Comment on above: Performed By: #### L IPID, CMP, T7, BNP, TSH #### [facility] [address] [address] [address] David Das Urea nitrogen [Mass/Vol] 11.0 mg/dL Normal 7.0-18.0 [facility] Comment on above: Performed By: #### L IPID, CMP, T7, BNP, TSH #### [facility] [address] [address] [address] David Das Urea nitrogen/Creatinine [Mass ratio] 17.2 mg/mg Normal [facility] Comment on above: Performed By: #### L IPID, CMP, T7, BNP, TSH #### [facility] [address] [place] [address] Dr. David Das TSHon 11-03-2022 TSH 1.923 uIU/mL Normal 0.358-3.740 [facility] Comment on above: Performed By: #### L IPID, CMP, T7, BNP, TSH #### [facility] [address] [address] [address] David Das Covid-19 PCR (CVDTBH)on 05-17 SARS-CoV-2 (COVID-19) RNA BACILIO+probe Ql (Unsp spec) Detected Critically abnormal NOT DETECTED [facility] Comment on above: Result Comment: This test is not yet approved or cleared by the [place] FDA. When there are no FDA-approved or cleared tests available, and other criteria are met, FDA can make tests available under an emergency access mechanism called an Emergency Use Authorization (EUA). The EUA for this test is supported by the [employer] of Health and Human Service's declaration that [...] C VDTBH #### [facility] [address] [place] [address] Dr. David Das PAP ACOG PANEL 2: 21 to 29on 05-23-2022 . . Normal [facility] Comment on above: Performed By: #### L IPID, CMP, T7, BNP, TSH #### [facility] [address] [address] [address] David Das Age Gdln ACOG Testing 19- [facility] Comment on above: Performed By: #### L IPID, CMP, T7, BNP, TSH #### [facility] [address] [address] [address] David Das DIAGNOSIS: Comment [facility] Comment on above: Result Comment: NEGA TIVE FOR INTRAEPITHELIAL LESION OR MALIGNANCY. Performed By: #### L IPID, CMP, T7, BNP, TSH #### [facility] [address] [address] [address] David Das Methodology: Comment [facility] Comment on above: Result Comment: This liquid based ThinPrep(R) pap test was screened with the use of an image guided system. Performed By: #### L IPID, CMP, T7, BNP, TSH #### [facility] [address] [address] [address] David Das Note: Comment [facility] Comment on above: Result Comment: The Pap [...] TSH #### [facility] [address] [address] [address] David Das Performed by: Comment Normal [facility] Comment on above: Result Comment: Cayla Jay Staffing Rn (ASCP) Performed By: #### L IPID, CMP, T7, BNP, TSH #### [facility] [address] [address] [address] David Das Reflex Criteria: Comment [facility] Comment on above: Result Comment: The HPV DNA reflex criteria were not met with this specimen result therefore, no HPV testing was performed. . Performed By: #### L IPID, CMP, T7, BNP, TSH #### [facility] [address] [place], [place] [address] Dr. David Das Specimen adequacy: Comment Normal [facility] Comment on above: Result Comment: Sati sfactory for evaluation. Endocervical and/or squamous metaplastic cells (endocervical component) are present. Areas of partially obscuring inflammatory exudate are present. Performed By: #### L IPID, CMP, T7, BNP, TSH #### [facility] [address] [place], [place] [address] Dr. David Das XR FOOT RT MIN 3 VIEWSon XR FOOT RT MIN 3 VIEWS IMAGES REVIEWED: XR FOOT RT MIN 3 VIEWS COMPARISON: None available. CLINICAL INDICATION: Pain, no injury. FINDINGS/IMPRESSION: Unremarkable radiographic appearance of the right foot. Electronically authenticated by: VIVIEN NOONAN Date: 2022-03-27 20:26 Normal [facility] Pathology Noteon 02-24-2022 Pathology Note [id number] #1.00CD:127 Normal [facility] [place] [facility] Ambulatory [...] Signed: 02/19/22 17:00 EDT Facesheeton 02-12-2022 Facesheet [id number] #1.00CD:127 Normal [facility] [place] [facility] BNPon 02-01-2022 Natriuretic peptide B (Bld) [Mass/Vol] 64.0 pg/mL Normal <=450.0 [facility] Comment on above: Performed By: #### L IPID, CMP, T7, BNP, TSH #### [facility] [address] [address] [address] David Das CBC AUTO DIFFon 02-01-2022 BASO # 0.0 103/ul Normal 0.0-0.1 [facility] Comment on above: Performed By: #### L IPID, CMP, T7, BNP, TSH #### [facility] [address] [place], [place] [address] Dr. David Das Basophils/100 WBC (Bld) 0.4 % Normal 0.2-2.0 [facility] Comment on above: Performed By: #### L IPID, CMP, T7, BNP, TSH #### [facility] [address] [place] [address] Dr. David Das EO # 0.1 103/ul Normal 0.0-0.7 [facility] Comment on above: Performed By: #### L IPID, CMP, T7, BNP, TSH #### [facility] [address] [place] [address] Dr. aDvid Das Eosinophils/100 WBC (Bld) 1.8 % Normal 0.9-7.0 [facility] Comment on above: Performed By: #### L IPID, CMP, T7, BNP, TSH #### [facility] [address] [place] [address] Dr. David Das Erythrocyte distribution width (RBC) [Ratio] 12.5 % Normal 11.0-15.0 [facility] Comment on above: Performed By: #### L IPID, CMP, T7, BNP, TSH #### [facility] [address] [place] [address] Dr. David Das Hematocrit (Bld) [Volume fraction] 43.6 % Normal 36.0-48.0 [facility] Comment on above: Performed By: #### L IPID, CMP, T7, BNP, TSH #### [facility] [address] [place] [address] Dr. David Das Hemoglobin (Bld) [Mass/Vol] 14.2 g/dL Normal 12.0-16.0 [facility] Comment on above: Performed By: #### L IPID, CMP, T7, BNP, TSH #### [facility] [address] [place] [address] Dr. David Das IG # 0.01 10e3/ul Normal 0.00-0.03 [facility] Comment on above: Performed By: #### L IPID, CMP, T7, BNP, TSH #### [facility] [address] [place] [address] Dr. David Das IG % 0.2 % Normal 0.0-0.5 [facility] Comment on above: Performed By: #### L IPID, CMP, T7, BNP, TSH #### [facility] [address] [place] [address] Dr. David Das LYMPH # 1.8 103/ul Normal 1.2-3.8 [facility] Comment on above: Performed By: #### L IPID, CMP, T7, BNP, TSH #### [facility] [address] [place] [address] Dr. David Das Lymphocytes/100 WBC (Bld) 32.0 % Normal 20.5-60.0 [facility] Comment on above: Performed By: #### L IPID, CMP, T7, BNP, TSH #### [facility] [address] [place] [address] Dr. David Das MANUAL DIFF REQ NO Normal [facility] Comment on above: Performed By: #### L IPID, CMP, T7, BNP, TSH #### [facility] [address] [place] [address] Dr. David Das MCH (RBC) [Entitic mass] 30.8 pg Normal 26.7-34.0 [facility] Comment on above: Performed By: #### L IPID, CMP, T7, BNP, TSH #### [facility] [address] [place] [address] Dr. David Das MCHC (RBC) [Mass/Vol] 32.6 g/dL Normal 29.9-35.2 [facility] Comment on above: Performed By: #### L IPID, CMP, T7, BNP, TSH #### [facility] [address] [place] [address] Dr. David Das MCV (RBC) [Entitic vol] 94.6 fL Normal 81.0-99.0 [facility] Comment on above: Performed By: #### L IPID, CMP, T7, BNP, TSH #### [facility] [address] [place] [address] Dr. David Das MONO # 0.4 103/ul Normal 0.3-0.8 [facility] Comment on above: Performed By: #### L IPID, CMP, T7, BNP, TSH #### [facility] [address] [place] [address] Dr. David Das Monocytes/100 WBC (Bld) 6.5 % Normal 1.7-12.0 [facility] Comment on above: Performed By: #### L IPID, CMP, T7, BNP, TSH #### [facility] [address] [place] [address] Dr. David Das NEUT # 3.3 103/ul Normal 1.4-6.5 [facility] Comment on above: Performed By: #### L IPID, CMP, T7, BNP, TSH #### [facility] [address] [place] [address] Dr. David Das Neutrophils/100 WBC (Bld) 59.1 % Normal 43.0-75.0 [facility] Comment on above: Performed By: #### L IPID, CMP, T7, BNP, TSH #### [facility] [address] [place] [address] Dr. David Das Platelet mean volume (Bld) [Entitic vol] 10.5 fL Normal 9.5-13.5 [facility] Comment on above: Performed By: #### L IPID, CMP, T7, BNP, TSH #### [facility] [address] [place] [address] Dr. David Das PLT 195 103/ul Normal 150-450 [facility] Comment on above: Performed By: #### L IPID, CMP, T7, BNP, TSH #### [facility] [address] [place] [address] Dr. David Das RBC 4.61 106/ul Normal 4.20-5.40 [facility] Comment on above: Performed By: #### L IPID, CMP, T7, BNP, TSH #### [facility] [address] [place] [address] Dr. David Das WBC 5.7 103/ul Normal 4.0-11.0 [facility] Comment on above: Performed By: #### L IPID, CMP, T7, BNP, TSH #### [facility] [address] [place] [address] Dr. David Das FREE THYROXINE INDEX T7on FTI 2.41 Normal [facility] Comment on above: Performed By: #### L IPID, CMP, T7, BNP, TSH #### [facility] [address] [address] [address] David Das T3U 33.0 % Normal 23.5-40.5 [facility] Comment on above: Performed By: #### L IPID, CMP, T7, BNP, TSH #### [facility] [address] [address] [address] David Das T4 [Mass/Vol] 7.30 ug/dL Normal 5.53-11.00 [facility] Comment on above: Performed By: #### L IPID, CMP, T7, BNP, TSH #### [facility] [address] [address] [address] David Das GLYCOHEMOGLOBIN A1Con 2021 ADA RECOMMENDATION ADA THERAPEUTIC TARGET 6.0 - 7.0 ACTION SUGGESTED > 7.0 Normal [facility] Comment on above: Performed By: #### A 1C #### [facility] [address] [address] [address] David Das Glucose [Mass/Vol] 100 mg/dL Normal [facility] Comment on above: Performed By: #### A 1C #### [facility] [address] [address] [address] David Das HbA1c (Bld) [Mass fraction] 5.1 % Normal <=6.0 [facility] Comment on above: Performed By: #### A 1C #### [facility] [address] [address] [address] David Das IRONon 02-01-2022 Iron [Mass/Vol] 101.0 ug/dL Normal 37.0-170.0 [facility] Comment on above: Performed By: #### L IPID, CMP, T7, BNP, TSH #### [facility] [address] [address] [address] David Das LIPID PROFILEon 02-01-2022 CHOL-HDL RATIO NORM SEE BELOW Normal [facility] Comment on above: Result Comment: 3.3 - 4.4 LOW RISK 4.4 - 7.1 AVERAGE RISK 7.1 - 11.0 MODERATE RISK >11.0 HIGH RISK Performed By: #### L IPID, CMP, T7, BNP, TSH #### [facility] [address] [address] [address] David Das Cholesterol [Mass/Vol] 123 mg/dL Normal <=200 [facility] Comment on above: Performed By: #### L IPID, CMP, T7, BNP, TSH #### [facility] [address] [address] [address] David Das Cholesterol in HDL [Mass/Vol] 44 mg/dL Normal 40-60 [facility] Comment on above: Performed By: #### L IPID, CMP, T7, BNP, TSH #### [facility] [address] [address] [address] David Das Cholesterol in LDL [Mass/Vol] 63.2 mg/dL Normal [facility] Comment on above: Performed By: #### L IPID, CMP, T7, BNP, TSH #### [facility] [address] [address] [address] David Das Cholesterol.total/Ch olesterol in HDL [Mass ratio] 2.8 {ratio} Normal [facility] Comment on above: Performed By: #### L IPID, CMP, T7, BNP, TSH #### [facility] [address] [address] [address] David Das HDL NORMAL > or = 60 mg/dl - LOW CARDIOVASCULAR RISK <40 mg/dl - HIGH CARDIOVASCULAR RISK Normal [facility] Comment on above: Performed By: #### L IPID, CMP, T7, BNP, TSH #### [facility] [address] [address] [address] David Das LDL CALC NORMAL SEE BELOW Normal [facility] Comment on above: Result Comment: <100 mg/dl OPTIMAL 100 - 129 mg/dl NEAR OR ABOVE OPTIMAL 130 - 159 mg/dl BORDERLINE HIGH 160 - 189 mg/dl HIGH >190 mg/dl VERY HIGH Performed By: #### L IPID, CMP, T7, BNP, TSH #### [facility] [address] [address] [address] David Das Triglyceride [Mass/Vol] 79 mg/dL Normal <=150 [facility] Comment on above: Performed By: #### L IPID, CMP, T7, BNP, TSH #### [facility] [address] [address] [address] David Das VLDL CALC 15.8 mg/dL Normal [facility] Comment on above: Performed By: #### L IPID, CMP, T7, BNP, TSH #### [facility] [address] [address] [address] David Das PROF 14(COMP METB)on 022 Albumin [Mass/Vol] 3.9 g/dL Normal 3.4-5.0 [facility] Comment on above: Performed By: #### L IPID, CMP, T7, BNP, TSH #### [facility] [address] [address] [address] David Das Albumin/Globulin [Mass ratio] 1.2 {ratio} Normal [facility] Comment on above: Performed By: #### L IPID, CMP, T7, BNP, TSH #### [facility] [address] [address] [address] David Das ALP [Catalytic activity/Vol] 49 U/L Normal 46-116 [facility] Comment on above: Performed By: #### L IPID, CMP, T7, BNP, TSH #### [facility] [address] [address] [address] David Das ALT [Catalytic activity/Vol] 13 U/L Critically low 14-59 [facility] Comment on above: Performed By: #### L IPID, CMP, T7, BNP, TSH #### [facility] [address] [address] [address] David Das Anion gap [Moles/Vol] 12.6 mmol/L Normal [facility] Comment on above: Performed By: #### L IPID, CMP, T7, BNP, TSH #### [facility] [address] [address] [address] David Das AST [Catalytic activity/Vol] 10 U/L Critically low 15-37 [facility] Comment on above: Performed By: #### L IPID, CMP, T7, BNP, TSH #### [facility] [address] [place] [address] Dr. David Das Bilirubin [Mass/Vol] 0.4 mg/dL Normal 0.2-1.3 [facility] Comment on above: Performed By: #### L IPID, CMP, T7, BNP, TSH #### [facility] [address] [place] [address] Dr. David Das Calcium [Mass/Vol] 8.7 mg/dL Normal 8.5-10.1 [facility] Comment on above: Performed By: #### L IPID, CMP, T7, BNP, TSH #### [facility] [address] [place] [address] Dr. David Das Chloride [Moles/Vol] 106 mmol/L Normal 98-107 [facility] Comment on above: Performed By: #### L IPID, CMP, T7, BNP, TSH #### [facility] [address] [place] [address] Dr. David Das CO2 [Moles/Vol] 27.9 mmol/L Normal 22.0-30.0 [facility] Comment on above: Performed By: #### L IPID, CMP, T7, BNP, TSH #### [facility] [address] [place] [address] Dr. David Das Creatinine [Mass/Vol] 0.69 mg/dL Normal 0.52-1.04 [facility] Comment on above: Performed By: #### L IPID, CMP, T7, BNP, TSH #### [facility] [address] [place] [address] Dr. David Das EGFR-AF KENYAN >60 Normal >=60 [facility] Comment on above: Performed By: #### L IPID, CMP, T7, BNP, TSH #### [facility] [address] [address] [address] David Das EGFR-NON AF KENYAN >60 Normal >=60 [facility] Comment on above: Performed By: #### L IPID, CMP, T7, BNP, TSH #### [facility] [address] [place] [address] Dr. David Das Globulin (S) [Mass/Vol] 3.2 g/dL Normal [facility] Comment on above: Performed By: #### L IPID, CMP, T7, BNP, TSH #### [facility] [address] [place] [address] Dr. David Das Glucose [Mass/Vol] 104 mg/dL Normal 74-106 [facility] Comment on above: Performed By: #### L IPID, CMP, T7, BNP, TSH #### [facility] [address] [place] [address] Dr. David Das Potassium [Moles/Vol] 4.5 mmol/L Normal 3.4-5.0 [facility] Comment on above: Performed By: #### L IPID, CMP, T7, BNP, TSH #### [facility] [address] [place] [address] Dr. David Das Protein [Mass/Vol] 7.1 g/dL Normal 6.1-8.2 [facility] Comment on above: Performed By: #### L IPID, CMP, T7, BNP, TSH #### [facility] [address] [place] [address] Dr. David Das Sodium [Moles/Vol] 142 mmol/L Normal 137-145 [facility] Comment on above: Performed By: #### L IPID, CMP, T7, BNP, TSH #### [facility] [address] [place] [address] Dr. David Das Urea nitrogen [Mass/Vol] 12.0 mg/dL Normal 7.0-18.0 [facility] Comment on above: Performed By: #### L IPID, CMP, T7, BNP, TSH #### [facility] [address] [place] [address] Dr. David Das Urea nitrogen/Creatinine [Mass ratio] 17.4 mg/mg Normal [facility] Comment on above: Performed By: #### L IPID, CMP, T7, BNP, TSH #### [facility] [address] [address] [address] David Das TSHon 02-01-2022 TSH 1.718 uIU/mL Normal 0.470-4.680 [facility] Comment on above: Performed By: #### L IPID, CMP, T7, BNP, TSH #### [facility] [address] [place] [address] Dr. David Das TSH RANGE SEE BELOW Normal [facility] Comment on above: Result Comment: <0.3 4 UIU/ml HYPERTHYROID 0.34-5.60 UIU/ml EUTHYROID >5.60 UIU/ml HYPOTHYROID Performed By: #### L IPID, CMP, T7, BNP, TSH #### [facility] [address] [place] [address] Dr. David Das Physician Referralon 022 Physician Referral [id number] #[id number] Normal [facility] Covid-19 PCR ([facility])on 12-18 SARS-CoV-2 (COVID-19) RNA BACILIO+probe Ql (Unsp [...] for this test is supported by the [place] of Health and Human Service's (HHS's) declaration [...] Performed By: #### C VDTB #### [facility] [address] [address] [address] David Das Encounters Encounter Date Encounter Type Care Provider Facility Start: 05-10-2024 End: 05-10-2024 ambulatory GONZALES OMAYRA Not Available Start: 04-26-2024 End: 04-26-2024 ambulatory GONZALES OMAYRA Not Available Start: 04-12-2024 End: 04-12-2024 ambulatory GONZALES OMAYRA Not Available Start: 03-28-2024 End: 03-28-2024 ambulatory ALEXIS ORTIZ Not Available Start: 03-02-2024 End: 03-02-2024 ambulatory GONZALES OMAYRA Not Available Start: 02-03-2024 End: 02-03-2024 ambulatory GONAZLES OMAYRA Not Available Start: 01-06-2024 End: 01-06-2024 [...] EST Routine [facility] [address] [place] [address] Gonzales Cutler, DO [address] [place] [address] [facility] Start: 07-17-2023 Influenza vaccination [...] Payer Category Payer Unknown BCBS BCBS xxxxxx [id number] 2023-Present [phone] [address] [place] [address] [id number] 2023 Unknown [id number] 1993 Unknown [id number] ..[id number] 1993 Unknown [id number] ..840.1.114408.3.579.2.593 1993 Unknown [id number] 2..840.1.472816.3.579.2.593 1993 Unknown [id number] 2.16.840.1.476281.3.579.2.593 1993 Unknown [id number] 2.16.840.1.793966.3.579.2.593 1993 Unknown [id number] 2.16.840.1.189328.3.579.2.593 1993 Unknown [id number] 2.16.840.1.995167.3.579.2.593 1993 Unknown [id number] 2.16.840.1.939389.3.579.2.593 1993 Unknown [id number] 2.16.840.1.473698.3.579.2.593 1993 Unknown [id number] 2.16.840.1.500672.3.579.2.1259 1993 Unknown [id number] 2.16.840.1.406980.3.579.2.1259 1993 Unknown [id number] 2.16.840.1.495906.3.579.2.1259 1993 Unknown [id number] 2.16.840.1.295781.3.579.2.1259 1993 Unknown [id number] 2.16840.1.428672.3.579.2.1259 1993 Unknown [id number] 2.16.840.1.381469.3.579.2.1259 1993 Unknown [id number] 2.16.840.1.123606.3.579.2.1259 1993 Unknown [id number] 2.16.840.1.291399.3.579.2.1259 1959 Self-pay 1959 Unknown [id number] 1959 Unknown [id number] 1959 Unknown [id number] 1959 Unknown [id number] Social History Date Type Detail Facility Start: [facility]23 [facility] [...] and content) DATE CREATED AUTHOR 02/25/2022 [facility] DATE CREATED AUTHOR AUTHOR'S ORGANIZ ATION 11/13/2022 [facility] DATE CREATED AUTHOR AUTHOR'S ORGANIZ ATION 05/11/2024 [facility] EPIC FOR RECORDS PERTAINING [...] BE BASED ON THE PRIMARY CLINICAL RECORDS. [facility]. provides no warranty or guarantee of the accuracy or completeness of information in this document.
--- NOTE | 2024-06-02 05:48 | PC.NURSE ---
IV started and blood drawn for lab along with 4 additonal vials for [place] kit. Specimens labeled and placed in box
--- NOTE | 2024-06-02 06:01 | PM.OBHP ---
OB - H&P: HPI History of Present Illness Chief complaint: Surrogate /INDUCTION : 5 Para: 4 Gestational age based on last menstrual period: 37 3/7wks Indications for induction: other (intrauterine growth restriction) Comments: 28 yo presents for induction of labor dt intrauterine growth restiction. pt is surrogate History of Present Dating criteria: LMP confirmed by 1st trimester US care: good care Ultrasounds: normal 1st trimester US and normal mid trimester US complications comment: intrauterine growth restriction Medical complications OB: none Labs Blood type: A (+) positive Rubella: immune RPR/VDLR: nonreactive GBS status: negative HBsAG: negative Review of Systems ROS Status of ROS: 10 or more systems reviewed and unremarkable except as noted in history and below PFSH PFSH Family History Mother Family history of COPD (chronic obstructive pulmonary disease) Family history of hypertension Grandfather Family history of cancer Sister Family history of cancer Family history of hypertension Grandmother Family history of myocardial infarction Family history of stroke Meds Home Medications and Allergies Home Medications ?Medication ?Instructions ?Recorded ?Confirmed ?Type No Known Home Medications 08/05/23 08/05/23 History Allergies Allergy/AdvReac Type Severity Reaction Status Date / Time No Known Drug Allergies Allergy Verified 08/05/23 06:23 Exam Constitutional Vital Signs, click to edit/add: Last Vital Signs Pulse 100 H 06/02/24 05:19 BP 107/70 06/02/24 05:19 Documenting provider has reviewed patient's vital signs: yes Common normals: no apparent distress Respiratory Common normals: clear to auscultation bilaterally Cardio Common normals: regular rate and regular rhythm GI Common normals: Normal to inspection, nondistended, normoactive bowel sounds present Extremity Common normals: no clubbing, cyanosis or edema OB - A/P Assessment and Plan (1) Intrauterine : (2) Intrauterine growth restriction (IUGR) affecting care of mother, third trimester, single gestation: Assessment and Plan: labor induction, cont efm, pit induction, arom, routine labs (3) Surrogate :
[2024-06-02 06:05] LABS: Hemoglobin 11.2 g/dL (12.0-16.0); Mean Corpuscular HGB Conc 32.9 g/dL (29.9-35.2); Mean Corpuscular Hemoglobin 30.2 pg (26.7-34.0); Mean Corpuscular Volume 91.6 fL (81.0-99.0); Mean Platelet Volume 11.2 fL (9.5-13.5); Platelet Count 154 10^3/uL (150-450); Red Blood Count 3.71 10^6/uL (4.20-5.40); Red Cell Distribution Width 13.2 % (11.0-15.0); White Blood Count 8.1 10^3/uL (4.0-11.0)
[2024-06-02] MEDS: 0.9 % SODIUM CHLORIDE 1,000 ML 125 ML IV ×2 (06:20→19:45)
[2024-06-02] MEDS: OXYTOCIN/0.9 % SODIUM CHLORIDE 10 UNITS/500 ML PLAST..BAG 6 UNIT IV (06:22)
[2024-06-02 06:47] LABS: Amphetamine Screen Urine NEGATIVE (NEGATIVE); Barbiturates Screen Urine NEGATIVE (NEGATIVE); Benzodiazepines Screen Urine NEGATIVE (NEGATIVE); Buprenorphine Screen Urine NEGATIVE (NEGATIVE); Cannabinoid Screen Urine NEGATIVE (NEGATIVE); Cocaine Screen Urine NEGATIVE (NEGATIVE); Methadone Screen Urine NEGATIVE (NEGATIVE); Methamphetamines Screen Urine NEGATIVE (NEGATIVE); Opiate Screen Urine NEGATIVE (NEGATIVE); Oxycodone Screen Urine NEGATIVE (NEGATIVE); Phencyclidine Screen Urine NEGATIVE (NEGATIVE); Tricyclic Antidepressant Urine NEGATIVE (NEGATIVE)
[2024-06-02] MEDS: NALBUPHINE HCL 10 MG/ML AMPULE IV (09:57)
[2024-06-02] MEDS: OXYTOCIN/0.9 % SODIUM CHLORIDE 20 UNITS/1,000 ML PLAST..BAG 125 UNIT IV (10:57)
--- NOTE | 2024-06-02 11:05 | PM.OBPRCVD ---
Procedure Intrapartal events: None Induction method: per pitocin protocol Delivery augmentation: rupture of membranes and pitocin Delivery monitor: external FHT and external uterine Route of delivery: Episiotomy Description: none L&D Laceration Description: none Anesthesia type: None Disposition: floor Delivery date: 06/02/24 Gender: male presentation: vertex Placental delivery description: Spontaneous cord description: 3 Vessels and Nuchal Cord
--- NOTE | 2024-06-02 11:22 | SWNOTE1 ---
Surrogate . SW did speak with Audra in [facility] and she did get a copy of the father's (father who the baby is discharging with) license and insurance card that baby will be going under and placed in baby chart and registration has already been up to get information. All legal paperwork is in the chart as well. SW reviewed paperwork and everything looks good.
[2024-06-02] MEDS: HYDROCORTISONE 1% CREAM 28 GRAM TUBE 1 APPLIC TOPICAL (21:04)
[2024-06-02] MEDS: IBUPROFEN 600 MG TABLET PO (22:35)
[2024-06-03] VITALS: PULSE 83
[2024-06-03 02:00] VITALS: PULSE 73
[2024-06-03] MEDS: 0.9 % SODIUM CHLORIDE 1,000 ML 125 ML IV (03:42)
[2024-06-03 03:58] VITALS: PULSE 65
--- NOTE | 2024-06-03 04:42 | P.OBPN_ITS ---
OB - PN: Subj Subjective Patient comments: no complaints and pain well controlled [place] status: doing well Exam Constitutional Vital Signs, click to edit/add: Last Vital Signs Temp 98.1 F 06/02/24 20:03 Pulse 65 06/03/24 03:58 Resp 18 06/02/24 20:03 BP 107/69 06/02/24 20:03 Pulse Ox 98 06/02/24 20:03 O2 Del Method Room Air 06/02/24 20:03 Documenting provider has reviewed patient's vital signs: yes Common normals: no apparent distress Respiratory Common normals: normal respiratory effort and clear to auscultation bilaterally Cardio Common normals: regular rate and regular rhythm GI Common normals: Normal to inspection, nondistended, normoactive bowel sounds present Extremity Common normals: no calf tenderness Results Labs Labs: Short CBC 06/02/24 Range/Units 05:35 WBC 8.1 (4.0-11.0) 10^3/uL Hgb 11.2 L (12.0-16.0) g/dL Hct 34.0 L (36.0-48.0) % Plt Count 154 (150-450) 10^3/uL OB - PN: A/P Assessment and Plan (1) Intrauterine : (2) Intrauterine growth restriction (IUGR) affecting care of mother, third trimester, single gestation: (3) Surrogate : Plan - Vaginal Delivery day: 1 Plan: routine care, discharge home and follow up 6 weeks Time Spent with Patient Time: Total time spent is greater than 50% in coordination of care (as documented) at patient's floor/unit and/or counseling patient: Total time spent with greater than 50% in coordination of care (as documented) at patient's floor/unit and/or counseling patient: less than 15 minutes
[2024-06-03 05:46] LABS: Basophils Percent Auto 0.3 % (0.2-2.0); Eosinophils Absolute Auto 0.1 10^3/uL (0.0-0.7); Eosinophils Percent Auto 1.2 % (0.9-7.0); Hematocrit 29.2 % (36.0-48.0); Hemoglobin 9.4 g/dL (12.0-16.0); Immature Granulocytes Abs Auto 0.09 10^3/uL (0.00-0.03); Immature Granulocytes Pct Auto 0.9 % (0.0-0.5); Lymphocytes Absolute Auto 1.6 10^3/uL (1.2-3.8); Lymphocytes Percent Auto 15.8 % (20.5-60.0); Mean Corpuscular HGB Conc 32.2 g/dL (29.9-35.2); Mean Corpuscular Hemoglobin 29.7 pg (26.7-34.0); Mean Corpuscular Volume 92.4 fL (81.0-99.0); Mean Platelet Volume 11.3 fL (9.5-13.5); Monocytes Absolute Auto 0.6 10^3/uL (0.3-0.8); Monocytes Percent Auto 6.3 % (1.7-12.0); Neutrophils Absolute Auto 7.4 10^3/uL (1.4-6.5); Neutrophils Percent Auto 75.5 % (43.0-75.0); Platelet Count 149 10^3/uL (150-450); Red Blood Count 3.16 10^6/uL (4.20-5.40); Red Cell Distribution Width 13.2 % (11.0-15.0); White Blood Count 9.9 10^3/uL (4.0-11.0)
[2024-06-03 05:58] VITALS: PULSE 62
== END 2024-06-03 08:11 | disposition home or self-care (01) | DRG 807 ==
LOC: FBC 09:03 → MS 18:29
PROVIDERS: Admitting Provider Obstetrics & Gynecology; Visit Provider Obstetrics & Gynecology
DX: O36.5930 Maternal care for other known or suspected poor fetal growth, third trimester, not applicable or unspecified (principal); Z37.0 Single live birth; O69.81X0 Labor and delivery complicated by cord around neck, without compression, not applicable or unspecified; Z3A.37 37 weeks gestation of pregnancy; Z33.3 Pregnant state, gestational carrier
CPT/HCPCS: 36415; 59050; 59410; 80307; 85025; 85027; 86850; 86900; 86901; 96365; 96366; 96368; 96375; J2300

== ENCOUNTER 2025-07-20 09:09 | Outpatient (REF) | payer BC, SELFPAY ==
--- OUTSIDE RECORDS SUMMARY | 2024-06-03 06:00 | XMS_ITS ---
Author Organization [facility] vices Address [address] [place], [place] [id number] Care Team Providers Care Loom Setter Fourdrinier Name Role Phone Wesley Franks Primary Care Provider REASON FOR VISIT Wellness Social History Sex Assigned At : Social History Observation Description Sex Assigned At Female Encounters Encounter Location Date Provider Diagnosis [facility] [address] [place] [address] 06/03/2024 Wesley Franks Plan Of Treatment No Information Progress Notes * Zara ROBISON NDOB:1994 (30 yo F)Acc No.[id number]:06/03/2024 Medical Note Patient: Zara CRANE Provider: ANA Charles :1995 A ge:28 Y S ex:Female Date:06/03/2024 Address:[address] [place], [place] [address] Subjective: * Chief Complaints: * 1 . Wellness. * Medical History: Objective: * Vitals: Assessment: Plan: * Treatment: * Billing Information: * Visit Code: * Procedure Codes: * Electronic signature of Wai Franks NP on 07/20/2025 at 09:09 AM EDT Sign off status: Pending * Provider: ANA Charles Date: 06/03/2024 Generated for Azrai ng/Fabertin/eTransmitting on: 07/20/2025 09:09 AM EDT
--- OUTSIDE RECORDS SUMMARY | 2025-07-20 09:00 | XMS_ITS | Encounter Summary ---
Author Organization [facility] Address [address] [place] [address] Care Team Providers Care Processing Analyst Name Role Phone Unavailable Primary Care Provider Unavailabl e Reason for Visit * Reason Comments Well Women Visit Encounter Details Date Type Department Care Team (Latest Contact Info) Description 07/20/2025 9:00 AM EDT Procedure Visit [facility] [address] [place] [address] Cherie Callahan, [facility] [address] [place] [address] Well woman exam with routine gynecological exam (Primary Dx); Exposure to STD; Vaginal discharge; Pelvic pain in female; Hormone disorder; Cervicitis and endocervicitis Social History Tobacco Use Types Packs/Day Years Used Date Smoking Tobacco: Never Comments Unknown Sex and Gender Information Value Date Recorded Sex Assigned at Female 05/08/2023 11:20 AM EDT Legal Sex Female 11:47 PM EDT Gender Identity Female 05/08/2023 11:20 AM EDT Sexual Orientation Straight 05/08/2023 11 :20 AM EDT documented as of this encounter Last Filed Vital Signs Vital Sign Reading Time Taken Comments Blood Pressure 120/70 07/20/2025 9:16 AM EDT Pulse - - Temperature - - Respiratory Rate - - Oxygen Saturation - - Inhaled Oxygen Concentration - - Weight 59.5 kg (131 lb 1.9 oz) 07/20/2025 9:16 A M EDT Height - - Body Mass Index 23.98 07/06/2023 8:57 AM EDT documented in this encounter Progress Notes * Cherie Callahan NP - 07/20/2025 9:00 AM EDT Reason for Appointment: Patient ID: Zara Gao is a 30 y.o. female who presents for Well Women Visit Patient presents today for Annual Exam. MEDICATIONS Current Outpatient Medications Medication Instructions albuterol HFA 90 mcg/act inhaler 2 puffs, Every 6 hours PRN loratadine-pseudoephedrine ER (Alavert Allergy/Sinus) 5-120 MG 12 hr tablet Every 12 hours omeprazole (PRILOSEC) 20 mg, Oral, Daily before breakfast, Do not crush or chew. ondansetron ODT (Zofran-ODT) 4 MG disintegrating tablet DISSOLVE 1 TABLET ON TONGUE EVERY 6 HOURS NEEDED FOR NAUSEA OR VOMITING ALLERGIES No Known Allergies PROBLEMS Active Ambulatory Problems Diagnosis Date Noted Surrogate ([facility]) 07/06/2023 Resolved Ambulatory Problems Diagnosis Date Noted No Resolved Ambulatory Problems Past Medical History: Diagnosis Date Anxiety Seasonal allergies HISTORY PAST MEDICAL HISTORY SOCIAL HISTORY Past Medical History: Diagnosis Date Anxiety Seasonal allergies Social History Tobacco Use Smoking status: Never Smokeless tobacco: Not on file Substance Use Topics Alcohol use: Not on file Drug use: Not on file FAMILY HISTORY Family History Problem Relation Name Age of Onset Anxiety disorder Mother COPD Mother Hypertension Mother Depression Father Alcohol abuse Father Hypertension Sister Anxiety disorder Sister Sarcoidosis Sister Depression Sister No Known Problems Daughter No Known Problems Daughter No Known Problems Daughter No Known Problems Son Stroke Maternal Grandmother Stroke Paternal Grandmother Brain cancer Paternal Grandfather SURGICAL HISTORY Past Surgical History: Procedure Laterality Date EGD 2019 TONSILLECTOMY 1998 REVIEW OF SYSTEMS Review of Systems: Review of Systems Constitutional: Positive for fatigue. HENT: Negative. Eyes: Negative. Respiratory: Negative. Cardiovascular: Negative. Gastrointestinal: Negative. Genitourinary: Positive for vaginal discharge. Musculoskeletal: Negative. Skin: Negative. Neurological: Negative. All other systems reviewed and are negative. Hematological: Negative. Endocrine: Negative. Allergic/Immunologic: Negative. OBJECTIVE Objective: Physical Exam Constitutional: Appearance: Normal appearance. She is well-developed. Genitourinary: Vulva normal. Genitourinary Comments: Enlarged labia majora bilaterally Cervical motion tenderness present. Breasts: Breasts are soft. Right: Normal. Left: Normal. Cardiovascular: Rate and Rhythm: Normal rate and regular rhythm. Pulmonary: Effort: Pulmonary effort is normal. Breath sounds: Normal breath sounds. Abdominal: General: Bowel sounds are normal. There is no distension. Palpations: Abdomen is soft. Tenderness: There is no abdominal tenderness. There is no guarding or rebound. Musculoskeletal: General: No swelling. Normal range of motion. Right lower leg: No edema. Left lower leg: No edema. Neurological: Mental Status: She is alert and oriented to person, place, and time. Skin: General: Skin is warm and dry. Psychiatric: Mood and Affect: Mood normal. Behavior: Behavior normal. Vitals and nursing note reviewed. Exam conducted with a securities vault supervisor present. Vitals: Estimated body mass index is 23.98 kg/m?? as calculated from the following: Height as of 07/06/23: 5' 2 . Weight as of this encounter: 131 lb 1.9 oz. BP: 120/70 Patient's last menstrual period was 06/28/2025. ASSESSMENT & PLAN ICD-10-CM 1. Well woman exam with routine gynecological exam Z01.419 Pap Smear HPV DNA probe, amplified 2. Exposure to STD Z20.2 CHLAMYDIA TRACHOMATIS (GENITO/STI) Neisseria gonorrhea DNA probe, direct 3. Vaginal discharge N89.8 SURESWAB(R) ADVANCED VAGINITIS PLUS, TMA 4. Pelvic pain in female R10.2 POCT , urine manually resulted POCT urinalysis dipstick manually resulted Annual Exam: Patient presents today for an annual exam. Patient states she is doing well and has no complaints. Pap was obtained without difficulty. Orders Placed This Encounter Procedures HPV DNA probe, amplified CHLAMYDIA TRACHOMATIS (GENITO/STI) Neisseria gonorrhea DNA probe, direct Estradiol Estrone Cortisol, free DHEA-sulfate Sex hormone binding globulin Insulin, total Serotonin serum T4, free T3, reverse Progesterone Vitamin D 1,25 dihydroxy Ferritin T3, free Thyroglobulin Thyroglobulin Antibody Thyroid peroxidase antibody T4 TESTOSTERONE, FREE Testosterone, free, total Glucose, random C-peptide POCT , urine manually resulted POCT urinalysis dipstick manually resulted Follow Up: Patient reports fatigue and just feeling off and would like her hormone labs checked . Reports burning pain after intercourse and pain with movement of the cervix today. Mild erythema is noted at the cervix without significant discharge. STI cultures obtain and will treat with Doxycycline. Patient would like to discuss labiaplasty with complaints of pain to labia, pain with intercourse and difficulty urinating due to enlarged labia. Patient to follow up after labs and will recommend pre op appointment for labiaplasty. Documented by Cherie Callahan NP on behalf of: Cherie Callahan NP documented in this encounter Plan of Treatment Upcoming Encounters Date Type Department Care Team (Late st Contact Info) Description 08/01/2025 2:20 PM EDT Consult [facility] [address] [place] [phone] Power Cutler DO [address] [place] [address] Scheduled Orders Name Type Priority Associated Diagnoses Orde r Schedule Pap Smear Pathology and Cytology Routine Well woman exam with routine gynecological exam Ordered: 07/20/2025 HPV DNA probe, amplified Microbiology Routine Well woman exam with routine gynecological exam Ordered: 07/20/2025 SURESWAB(R) ADVANCED VAGINITIS PLUS, TMA Pathology and Cytology Routine Vaginal discharge Ordered: 07/20/2025 CHLAMYDIA TRACHOMATIS (GENITO/STI) Lab Routine Exposure to STD Ordered: 07/20/2025 Neisseria gonorrhea DNA probe, direct Lab Routine Exposure to STD Ordered: 07/20/2025 Estradiol Lab Routine Hormone disorder Ordered: 07/20/2025 Estrone Lab Routine Hormone disorder Ordered: 07/20/2025 Cortisol, free Lab Routine Hormone disorder Expected: 07/20/2025 (Approximate), Expires: 07/20/2026 DHEA-sulfate Lab Routine Hormone disorder Ordered: 07/20/2025 Sex hormone binding globulin Lab Routine Hormone disorder Ordered: 07/20/2025 Insulin, total Lab Routine Hormone disorder Expected: 07/20/2025 (Approximate), Expires: 07/20/2026 Serotonin serum Lab Routine Hormone disorder Expected: 07/20/2025 (Approximate), Expires: 07/20/2026 T4, free Lab Routine Hormone disorder Ordered: 07/20/2025 T3, reverse Lab Routine Hormone disorder Ordered: 07/20/2025 Progesterone Lab Routine Hormone disorder Ordered: 07/20/2025 Vitamin D 1,25 dihydroxy Lab Routine Hormone disorder Ordered: 07/20/2025 Ferritin Lab Routine Hormone disorder Ordered: 07/20/2025 T3, free Lab Routine Hormone disorder Ordered: 07/20/2025 Thyroglobulin Lab Routine Hormone disorder Expected: 07/20/2025 (Approximate), Expires: 07/20/2026 Thyroglobulin Antibody Lab Routine Hormone disorder Expected: 07/20/2025 (Approximate), Expires: 07/20/2026 Thyroid peroxidase antibody Lab Routine Hormone disorder Ordered: 07/20/2025 T4 Lab Routine Hormone disorder Expected: 07/20/2025 (Approximate), Expires: 07/20/2026 TESTOSTERONE, FREE Lab Routine Hormone disorder Ordered: 07/20/2025 Testosterone, free, total Lab Routine Hormone disorder Ordered: 07/20/2025 Glucose, random Lab Routine Hormone disorder Expected: 07/20/2025 (Approximate), Expires: 07/20/2026 C-peptide Lab Routine Hormone disorder Expected: 07/20/2025 (Approximate), Expires: 07/20/2026 documented as of this encounter Goals Goal Patient Goal Type Associated Problems Recent Progress Patient-Stated? Author Reminders Care Plan OB Reminders No Open Scheduling, Background documented as of this encounter Procedures Procedure Name Priority Date/Time Associated Diagnosis Comments POCT URINALYSIS DIPSTICK Routine 07/20/2025 9:27 AM EDT Pelvic pain in female POCT , URINE Routine 07/20/2025 9:26 AM EDT Pelvic pain in female documented in this encounter Results * (ABNORMAL) POCT urinalysis dipstick manually resulted (07/20/2025 9:27 AM EDT) Color, UA Straw Clarity, UA Clear Glucose, UA Negative Negative - 2000(110) ++++ mg/dL Bilirubin, UA Negative Negative - 4(70) +++ mg/dL Ketones, UA Negative Negative - 160(16) ++++ mg/dL Spec Grav, UA 1.025 1 - 1.03 Blood, UA Negative Negative - 50 Ervin/mcL pH, UA 6.0 5 - 9 Protein, UA Negative Negative - 2000(20) ++++ mg/dL Urobilinogen, UA 1.0 0.2 - 12 mg/dL Leukocytes, UA Positive Negative - 500+++ Cathi/mcL Nitrite, UA Negative Negative - Positive Urine 07/20/2025 9:27 AM EDT us Cherie Callahan NP POINT OF CARE TEST ENTER/EDIT ORDERABLES Final Result * POCT , urine manually resulted (07/20/2025 9:26 AM EDT) Preg Test, Ur Negative Negative Urine 07/20/2025 9:26 AM EDT us Cherie Callahan NP POINT OF CARE TEST ENTER/EDIT ORDERABLES Final Result documented in this encounter Visit Diagnoses Diagnosis Well woman exam with routine gynecological exam- Primary Routine gynecological examination Exposure to STD Vaginal discharge Leukorrhea, not specified as infective Pelvic pain in female Unspecified symptom associated with female genital organs Hormone disorder Unspecified endocrine disorder Cervicitis and endocervicitis documented in this encounter Additional Health Concerns Active Problems Noted Date Diagnosed Date OB Reminders 12/09/2023 documented as of this encounter
--- OUTSIDE RECORDS SUMMARY | 2025-07-20 14:41 | XMS_ITS | Clinical Summary ---
Author Organization [facility] Address [address], [address] [place] [address] Care Team Providers Care Industrial Staff Nurse Name Role Phone None, None Primary Care Provider Unavailabl e Allergies No known active allergies Medications MV-Min-Fe Fum-FA-DHA ( 1 PO) Take by mouth Active loratadine (CLARITIN) 10 MG capsule Take 1 capsule by mouth daily Active ondansetron (ZOFRAN) 8 MG tablet Take 1 tablet by mouth every 8 hours as needed for Nausea or Vomiting Active albuterol sulfate HFA (VENTOLIN HFA) 108 (90 Base) MCG/ACT inhaler Inhale 2 puffs into the lungs every 6 hours as needed for Wheezing Active Social History Tobacco Use Types Packs/Day Years Used Date Smoking Tobacco: Never Smokeless Tobacco: Never Tobacco Cessation:Counseling Given: Not Answered Alcohol Use Standard Drinks/Week Comments Not Currently 0 (1 standard drink = 0.6 oz pur e alcohol) Comments No Sex and Gender Information Value Date Recorded Sex Assigned at Not on file Legal Sex Female 3:11 PM EST Gender Identity Not on file Sexual Orientation Not on file Last Filed Vital Signs Vital Sign Reading Time Taken Comments Blood Pressure 105/68 03/15/2024 7:59 AM EDT Pulse 96 03/15/2024 7:59 AM EDT Temperature 36.7 C (98 F) 03/15/2024 7:59 AM EDT Respiratory Rate 16 03/15/2024 7:59 AM EDT Oxygen Saturation - - Inhaled Oxygen Concentration - - Weight 65.3 kg (144 lb) 03/15/2024 7:59 AM EDT Height 157.5 cm (5' 2 ) 03/15/2024 7:59 AM EDT Body Mass Index 26.34 03/15/2024 7:59 AM EDT Plan of Treatment Health Maintenance Due Date Last Done Comments Depression Screen 2005 Varicella vaccine (1 of 2 - 13+ 2-dose series) 2006 HIV screen 2008 Hepatitis C screen 2011 Hepatitis B vaccine (1 of 3 - 19+ 3-dose series) 2012 Pap smear 2014 Cervical cancer screen 2023 HPV (without or with Pap) 2023 COVID-19 Vaccine (4 - 2023-2 5 season) 2024 10/24/2021, 04/24/2021, 04/07/2021 DTaP/Tdap/Td vaccine (2 - Td or Tdap) 03/20/2025 03/20/2015 Flu vaccine (#1) 06/16/2025 08/03/2022, 08/04/2021, 06/24/2018 HPV vaccine Aged Out No longer eligi ble based on patient's age to complete this topic Hepatitis A vaccine Aged Out No longe r eligible based on patient's age to complete this topic Hib vaccine Aged Out No longer eligi ble based on patient's age to complete this topic Meningococcal (ACWY) vaccine Aged Out No longer eligible based on patient's age to complete this topic Meningococcal B vaccine Aged Out No l onger eligible based on patient's age to complete this topic Pneumococcal 0-49 years Vaccine Aged Out No longer eligible b ased on patient's age to complete this topic Polio vaccine Aged Out No longer elig ible based on patient's age to complete this topic Insurance Care Teams Industrial Staff Nurse Relationship Specialty Start Date End Date None, None PCP - General 02/03/24
--- OUTSIDE RECORDS SUMMARY | 2025-07-20 14:41 | XMS_ITS | Encounter Summary ---
Author Organization [facility] Address [address] [place] [address] Care Team Providers Care Unmanned Equipment Operator Name Role Phone Unavailable Primary Care Provider Unavailabl e Encounter Details Date Type Department Care Team (Late st Contact Info) Description 05/17/2024 Clinisync Result Encounter [facility] External Department Unsolicited Gonzales Cutler DO [address] [place], [facility] Social History Tobacco Use Types Packs/Day Years Used Date Smoking Tobacco: Never Comments Yes Sex and Gender Information Value Date Recorded Sex Assigned at Female 05/08/2023 11:20 AM EDT Legal Sex Female 11:47 PM EDT Gender Identity Female 05/08/2023 11:20 AM EDT Sexual Orientation Straight 05/08/2023 11 :20 AM EDT documented as of this encounter Plan of Treatment Upcoming Encounters Date Type Department Care Team (Late st Contact Info) Description 08/01/2025 2:20 PM EDT Consult [facility] [address] [place] [phone] Gonzales Cutler DO [address] [place] [address] documented as of this encounter Goals Goal Patient Goal Type Associated Problems Recent Progress Patient-Stated? Author Reminders Care Plan OB Reminders No Open Scheduling, Background documented as of this encounter Procedures Procedure Name Priority Date/Time Associated Diagnosis Comments US OB BPP W NON-STRESS 05/17/2024 3:25 PM EDT documented in this encounter Results * US OB BPP W NON-STRESS (05/17/2024 3:25 PM EDT) Anatomical Region Laterality Modality Other 05/17/2024 3:25 PM EDT Narrative 05/17/2024 3:28 [place] [address] Ultrasound Report Signed Patient: ZARA ROBISON MR#: [id number] : 1995 Acct:[id number] Age/Sex: 28 / F ADM Date: 05/17/24 Loc: US Attending Dr: Gonzales Cutler D.O. Ordering Physician: Gonzales Cutler D.O. Date of Service: 05/17/24 Procedure(s): US OB BPP w non-stress Accession Number(s): [id number] cc: Gonzales Cutler D.O.; Physician,Non-Staff M.DMegan [address] [address] Patient Name: ZARA ROBISON MRN: [id number] date: 1995 Sex: F Assigned Patient Location: US Current Patient Location: US Accession/Order Number: [id number] Exam Date: 05/17/2024 14:30 Report Date: 05/17/2024 15:25 At the request of: GONZALES CUTLER Procedure: US OB BPP w non-stress EXAMINATION: US OB BPP w non-stress HISTORY:Surrogate Z33.3 COMPARISON: Ultrasound OB biophysical 05/10/2024 TECHNIQUE: Ultrasound biophysical profile was performed in the radiology department. BREATHING MOVEMENTS: 2 GROSS BODY MOVEMENTS: 2 TONE: 2 QUALITATIVE AMNIOTIC FLUID VOLUME: 2 PRESENTATION: CEPHALIC HEART RATE: 139.90 bpm AMNIOTIC FLUID VOLUME: 12.05 cm GESTATIONAL AGE: 35 weeks 1 day US/US OB BPP w non-stress IMPRESSION: Total biophysical profile score: 8 Electronically authenticated by: DALE VILLANUEVA Date: 05/17/2024 15:25 Dictated By: Dale Villanueva M.D. Signed By: 05/17/24 1528 DD/ 152 TD/TT: Braid Maker: Procedure Note Radiology, Radiologist, MD - 05/17/2024 [place] [address] Ultrasound Report Signed Patient: ZARA ROBISON NMR#: [id number] : 1995Acct:[id number] Age/Sex: 28 / FADM Date: 05/17/24 Loc: US Attending Dr: Gonzales Cutler D.O. Ordering Physician: Gonzales Cutler D.O. Date of Service: 05/17/24 Procedure(s): US OB BPP w non-stress Accession Number(s): [id number] cc: Gonzales Cutler D.O.; Physician,Non-Staff [place] [address] [place] [address] Patient Name: ZARA ROBISON MRN: [id number] date: 1995 Sex: F Assigned Patient Location: US Current Patient Location: US Accession/Order Number: [id number] Exam Date: 05/17/2024 14:30 Report Date: 05/17/2024 15:25 At the request of: GONZALES CUTLER Procedure: US OB BPP w non-stress EXAMINATION: US OB BPP w non-stress HISTORY:Surrogate Z33.3 COMPARISON: Ultrasound OB biophysical 05/10/2024 TECHNIQUE: Ultrasound biophysical profile was performed in the radiology department. BREATHING MOVEMENTS: 2 GROSS BODY MOVEMENTS: 2 TONE: 2 QUALITATIVE AMNIOTIC FLUID VOLUME: 2 PRESENTATION: CEPHALIC HEART RATE: 139.90 bpm AMNIOTIC FLUID VOLUME: 12.05 cm GESTATIONAL AGE: 35 weeks 1 day US/US OB BPP w non-stress IMPRESSION: Total biophysical profile score: 8 Electronically authenticated by: DALE VILLANUEVA Date: 05/17/2024 15:25 Dictated By: Dale Villanueva M.D. Signed By:05/17/24 1528 DD/ 1525 TD/TT: Braid Maker: us Gonzales Cutler DO [facility] Final Result documented in this encounter Visit Diagnoses Not on filedocumented in this encounter Additional Health Concerns Active Problems Noted Date Diagnosed Date OB Reminders 12/09/2023 documented as of this encounter
--- OUTSIDE RECORDS SUMMARY | 2025-07-20 14:41 | XMS_ITS | Encounter Summary ---
Author Organization [facility] Address [address] [place] [address] Care Team Providers Care Sheet Manager Name Role Phone Unavailable Primary Care Provider Unavailabl e Encounter Details Date Type Department Care Team (Late st Contact Info) Description 01/11/2024 Clinisync Result Encounter [facility] External Department Unsolicited Gonzales Cutler DO [address], [facility] Social History Tobacco Use Types Packs/Day Years [...] Consult [facility] [address] [place] [phone] Gonzales Cutler DO [address] [place] [address] documented as of this encounter Goals Goal Patient Goal Type Associated Problems Recent Progress Patient-Stated? Author Reminders Care Plan OB Reminders No Open Scheduling, Background documented as of this encounter Procedures Procedure Name Priority Date/Time Associated Diagnosis Comments US OB GROWTH 01/11/2024 3:22 PM EST documented in this encounter Results * US OB GROWTH (01/11/2024 3:22 PM EST) Anatomical Region Laterality Modality Other 01/11/2024 3:22 PM EST Narrative 01/11/2024 3:24 [place] [address] Ultrasound Report Signed Patient: ZARA ROBISON MR#: [id number] : 1995 Acct:[id number] Age/Sex: 28 / F ADM Date: 01/11/24 Loc: US Attending Dr: Gonzales Cutler D.O. Ordering Physician: Gonzales Cutler D.O. Date of Service: 01/11/24 Procedure(s): US OB growth Accession Number(s): [id number] cc: Gonzales Cutler D.O.; YANG EMANUEL M.D. [facility] [place] [address] Patient Name: ZARA ROBISON MRN: [id number] date: 1995 Sex: F Assigned Patient Location: US Current Patient Location: US Accession/Order Number: [id number] Exam Date: 01/11/2024 14:50 Report Date: 01/11/2024 15:22 At the request of: GONZALES CUTLER Procedure: US OB growth EXAMINATION: US OB growth HISTORY: subchorionic hemorrhage of placenta in second trimester COMPARISON: 12/14/2023 FINDINGS: Heart Rate: 159.8 bpm Amniotic Fluid Volume: Subjectively normal Number: 1.0 Position: Cephalic presentation, longitudinal lie PROCEDURE: Anterior fundal. No intraplacental or retroplacental echogenic abnormality BIOMETRY: BPD: 3.7 cm cm; 17 weeks 3 days; 68% HC: 13.6 cmcm; 17 weeks 1 days , 44% AC: 11.9 cm cm; 17 weeks 5 days, 71% FL: 2.2 cm cm; 16 weeks 4 days; 29.6 % % EFW: 183.0 grams, 6 ounces, 53% FL/AC: 18.5 FL/BPD: 59.2 HC/AC: 1.1 GESTATIONAL AGE: Age by EDC: 17 weeks 0 days [email or web address] by EDC: 06/20/2024 Age by US: 17 weeks 2 days [email or web address] by US: 06/18/2024 US/US OB growth IMPRESSION: Normal placenta Normal interval growth Electronically authenticated by: LINA MODI Date: 01/11/2024 15:22 Dictated By: Lina Modi M.D. Signed By: 01/11/24 152 DD/ 21 TD/TT: Action Finisher: Procedure Note Radiology, Radiologist, MD - 01/20/2024 [place] [address] Ultrasound Report Signed Patient: ZARA ROBISON NMR#: [id number] : 1995Acct:[id number] Age/Sex: 28 / FADM Date: 01/11/24 Loc: US Attending Dr: Gonzales Cutler D.O. Ordering Physician: Gonzales Cutler D.O. Date of Service: 01/11/24 Procedure(s): US OB growth Accession Number(s): [id number] cc: Gonzales Cutler D.O.; YANG EMANUEL M.D. [facility] [place] [address] Patient Name: ZARA ROBISON MRN: [id number] date: 1995 Sex: F Assigned Patient Location: US Current Patient Location: US Accession/Order Number: [id number] Exam Date: 01/11/2024 14:50 Report Date: 01/11/2024 15:22 At the request of: GONZALES CUTLER Procedure: US OB growth EXAMINATION: US OB growth HISTORY: subchorionic hemorrhage of placenta in second trimester COMPARISON: 12/14/2023 FINDINGS: Heart Rate: 159.8 bpm Amniotic Fluid Volume: Subjectively normal Number: 1.0 Position: Cephalic presentation, longitudinal lie PROCEDURE: Anterior fundal. No intraplacental or retroplacental echogenic abnormality BIOMETRY: BPD: 3.7 cm cm; 17 weeks 3 days; 68% HC: 13.6 cmcm; 17 weeks 1 days , 44% AC: 11.9 cm cm; 17 weeks 5 days, 71% FL: 2.2 cm cm; 16 weeks 4 days; 29.6 % % EFW: 183.0 grams, 6 ounces, 53% FL/AC: 18.5 FL/BPD: 59.2 HC/AC: 1.1 GESTATIONAL AGE: Age by EDC: 17 weeks 0 days [email or web address] by EDC: 06/20/2024 Age by US: 17 weeks 2 days IBRAHIMA by US: 06/18/2024 US/US OB growth IMPRESSION: Normal placenta Normal interval growth Electronically authenticated by: LINA MODI Date: 01/11/2024 15:22 Dictated By: Lina Modi M.D. Signed By:01/11/24 1524 DD/ 1522 TD/TT: Action Finisher: us Gonzales Cutler DO [facility] Final Result documented in this encounter Visit Diagnoses Not on filedocumented in this encounter Additional Health Concerns Active Problems Noted Date Diagnosed Date OB Reminders 12/09/2023 documented as of this encounter
--- OUTSIDE RECORDS SUMMARY | 2025-07-20 14:41 | XMS_ITS | Encounter Summary ---
Author Organization [facility] Address [address] [place] [address] Care Team Providers Care Building Rental Manager Name Role Phone Unavailable Primary Care Provider Unavailabl e Encounter Details Date Type Department Care Team (Late st Contact Info) Description 05/24/2024 Clinisync Result Encounter [facility] External Department Unsolicited Gonzales Cutler DO [address], [facility]11 Social History Tobacco Use Types Packs/Day Years [...] Consult [facility] [address] [place] [phone] Gonzales Cutler DO [address] [place] [address] documented as of this encounter Goals Goal Patient Goal Type Associated Problems Recent Progress Patient-Stated? Author Reminders Care Plan OB Reminders No Open Scheduling, Background documented as of this encounter Procedures Procedure Name Priority Date/Time Associated Diagnosis Comments US OB BPP W NON-STRESS 05/24/2024 2:41 PM EDT documented in this encounter Results * US OB BPP W NON-STRESS (05/24/2024 2:41 PM EDT) Anatomical Region Laterality Modality Other 05/24/2024 2:41 PM EDT Narrative 05/24/2024 2:43 [place] [address] Ultrasound Report Signed Patient: ZARA ROBISON MR#: [id number] : 1995 Acct:[id number] Age/Sex: 28 / F ADM Date: 05/24/24 Loc: US Attending Dr: Gonzales Cutler D.O. Ordering Physician: Gonzales Cutler D.O. Date of Service: 05/24/24 Procedure(s): US OB BPP w non-stress Accession Number(s): [id number] cc: Gonzales Cutler D.O.; Physician,Non-Staff M.DMegan The [address] [address] Patient Name: ZARA ROBISON MRN: [id number] date: 1995 Sex: F Assigned Patient Location: US Current Patient Location: Accession/Order Number: [id number] Exam Date: 05/24/2024 13:06 Report Date: 05/24/2024 14:41 At the request of: GONZALES CUTLER Procedure: US OB BPP w non-stress EXAMINATION: US OB BPP w non-stress HISTORY: Surrogate COMPARISON: No relevant comparison available. TECHNIQUE: Ultrasound biophysical profile was performed in the radiology department. non-reactive stress testing was performed by nursing staff in the birthing center. FINDINGS: BREATHING MOVEMENTS: 2 GROSS BODY MOVEMENTS: 2 TONE: 2 QUALITATIVE AMNIOTIC FLUID VOLUME: 2 PRESENTATION: CEPHALIC HEART RATE: 144.39 bpm AMNIOTIC FLUID VOLUME: 10.6 cm GESTATIONAL AGE: 36 weeks 1 day US/US OB BPP w non-stress IMPRESSION: Total biophysical profile score: 8 Electronically authenticated by: LINA MODI Date: 05/24/2024 14:41 Dictated By: Lina Modi M.D. Signed By: 05/24/24 1443 DD/ 144 TD/TT: Business Teacher: Procedure Note Radiology, Radiologist, - 05/24/2024 [place] [address] Ultrasound Report Signed Patient: ZARA ROBISON NMR#: [id number] : 1995Acct:[id number] Age/Sex: 28 / FADM Date: 05/24/24 Loc: US Attending Dr: Gonzales Cutler D.O. Ordering Physician: Gonzales Cutler D.O. Date of Service: 05/24/24 Procedure(s): US OB BPP w non-stress Accession Number(s): [id number] cc: Gonzales Cutler D.O.; Physician,Non-Staff Theron The [place] [id number] Patient Name: ZARA ROBISON MRN: [id number] date: 1995 Sex: F Assigned Patient Location: US Current Patient Location: Accession/Order Number: [id number] Exam Date: 05/24/2024 13:06 Report Date: 05/24/2024 14:41 At the request of: GONZALES CUTLER Procedure: US OB BPP w non-stress EXAMINATION: US OB BPP w non-stress HISTORY: Surrogate COMPARISON: No relevant comparison available. TECHNIQUE: Ultrasound biophysical profile was performed in the radiology department. non-reactive stress testing was performed by nursingstaff in the birthing center. FINDINGS: BREATHING MOVEMENTS: 2 GROSS BODY MOVEMENTS: 2 TONE: 2 QUALITATIVE AMNIOTIC FLUID VOLUME: 2 PRESENTATION: CEPHALIC HEART RATE: 144.39 bpm AMNIOTIC FLUID VOLUME: 10.6 cm GESTATIONAL AGE: 36 weeks 1 day US/US OB BPP w non-stress IMPRESSION: Total biophysical profile score: 8 Electronically authenticated by: LINA MODI Date: 05/24/2024 14:41 Dictated By: Lina Modi M.D. Signed By:05/24/24 1443 DD/ 1441 TD/TT: Business Teacher: us Gonzales Cutler DO [facility] Final Result documented in this encounter Visit Diagnoses Not on filedocumented in this encounter Additional Health Concerns Active Problems Noted Date Diagnosed Date OB Reminders 12/09/2023 documented as of this encounter
--- OUTSIDE RECORDS SUMMARY | 2025-07-20 14:41 | XMS_ITS | Encounter Summary ---
Author Organization [facility] Address [address] [place] [address] Care Team Providers Care Legal Clerk Name Role Phone Unavailable Primary Care Provider Unavailabl e Encounter Details Date Type Department Care Team (Late st Contact Info) Description 05/27/2024 Clinisync Result Encounter [facility] External Department Unsolicited Gonzales Cutler DO [address], [facility]11 Social History Tobacco Use Types Packs/Day [...] Consult [facility] [address] [place] [phone] Gonzales Cutler DO [address] [place] [address] documented as of this encounter Goals Goal Patient Goal Type Associated Problems Recent Progress Patient-Stated? Author Reminders Care Plan OB Reminders No Open Scheduling, Background documented as of this encounter Procedures Procedure Name Priority Date/Time Associated Diagnosis Comments US OB BPP W NON-STRESS 05/27/2024 4:12 PM EDT documented in this encounter Results * US OB BPP W NON-STRESS (05/27/2024 4:12 PM EDT) Anatomical Region Laterality Modality Other 05/27/2024 4:12 PM EDT Narrative 05/27/2024 4:15 [place] [address] Ultrasound Report Signed Patient: ZARA ROBISON MR#: [id number] : 1995 Acct:[id number] Age/Sex: 28 / F ADM Date: 05/27/24 Loc: FBCO Attending Dr: Gonzales Cutler D.O. Ordering Physician: Gonzales Cutler D.O. Date of Service: 05/27/24 Procedure(s): US OB BPP w non-stress Accession Number(s): [id number] cc: Gonzales Cutler D.O.; Physician,Non-Staff M.DMegan [address] [id number] Patient Name: ZARA ROBISON MRN: [id number] date: 1995 Sex: F Assigned Patient Location: [facility] Current Patient Location: Accession/Order Number: [id number] Exam Date: 05/27/2024 15:30 Report Date: 05/27/2024 16:12 At the request of: GONZALES CUTLER Procedure: US OB BPP w non-stress EXAMINATION: US OB BPP w non-stress HISTORY: surrogate, low mikey COMPARISON: No relevant comparison available. TECHNIQUE: Ultrasound biophysical profile was performed in the radiology department. non-reactive stress testing was performed by nursing staff in the birthing center. FINDINGS: BREATHING MOVEMENTS: 2 GROSS BODY MOVEMENTS: 2 TONE: 2 QUALITATIVE AMNIOTIC FLUID VOLUME: 2 PRESENTATION: Cephalic HEART RATE: 157 AMNIOTIC FLUID VOLUME: 10.5 cm GESTATIONAL AGE: 36 weeks 4 days US/US OB BPP w non-stress IMPRESSION: Total biophysical profile score: 8/8 Electronically authenticated by: LINA MODI Date: 05/27/2024 16:12 Dictated By: Lina Modi M.D. Signed By: 05/27/241614 DD/ 11 TD/TT: Gas Meter Repairer: Procedure Note Radiology, Radiologist, - 05/27/2024 [place] [address] Ultrasound Report Signed Patient: ZARA ROBISON NMR#: [id number] : 1995Acct:[id number] Age/Sex: 28 / FADM Date: 05/27/24 Loc: FBCO Attending Dr: Gonzales Cutler D.O. Ordering Physician: Gonzales Cutler D.O. Date of Service: 05/27/24 Procedure(s): US OB BPP w non-stress Accession Number(s): [id number] cc: Gonzales Cutler D.O.; Physician,Non-Staff Theron The [place] [id number] Patient Name: ZARA ROBISON MRN: [id number] date: 1995 Sex: F Assigned Patient Location: [facility] Current Patient Location: Accession/Order Number: [id number] Exam Date: 05/27/2024 15:30 Report Date: 05/27/2024 16:12 At the request of: GONZALES CUTLER Procedure: US OB BPP w non-stress EXAMINATION: US OB BPP w non-stress HISTORY: surrogate, low mikey COMPARISON: No relevant comparison available. TECHNIQUE: Ultrasound biophysical profile was performed in the radiology department. non-reactive stress testing was performed by nursingstaff in the birthing center. FINDINGS: BREATHING MOVEMENTS: 2 GROSS BODY MOVEMENTS: 2 TONE: 2 QUALITATIVE AMNIOTIC FLUID VOLUME: 2 PRESENTATION: Cephalic HEART RATE: 157 AMNIOTIC FLUID VOLUME: 10.5 cm GESTATIONAL AGE: 36 weeks 4 days US/US OB BPP w non-stress IMPRESSION: Total biophysical profile score: 8/8 Electronically authenticated by: LINA MODI Date: 05/27/2024 16:12 Dictated By: Lina Modi M.D. Signed By:05/27/24 1615 DD/ 1612 TD/TT: Gas Meter Repairer: us Gonzales Cutler DO [facility] Final Result documented in this encounter Visit Diagnoses Not on filedocumented in this encounter Additional Health Concerns Active Problems Noted Date Diagnosed Date OB Reminders 12/09/2023 documented as of this encounter
--- OUTSIDE RECORDS SUMMARY | 2025-07-20 14:41 | XMS_ITS | Encounter Summary ---
Author Organization [facility] Address [address] [place] [address] Care Team Providers Care Jacquard Plate Maker Name Role Phone Unavailable Primary Care Provider Unavailabl e Encounter Details Date Type Department Care Team (Late st Contact Info) Description 05/27/2024 Clinisync Result Encounter [facility] External Department Unsolicited Gonzales Cutler DO [address], [facility]11 Social History Tobacco Use Types Packs/Day [...] [facility] [address] [place] [phone] Gonzales Cutler DO [address] [place] [address] documented as of this encounter Goals Goal Patient Goal Type Associated Problems Recent Progress Patient-Stated? Author Reminders Care Plan OB Reminders No Open Scheduling, Background documented as of this encounter Procedures Procedure Name Priority Date/Time Associated Diagnosis Comments US OB UMBILICAL ARTERY DOPPLER 05/27/2024 4:17 PM EDT documented in this encounter Results * US OB UMBILICAL ARTERY DOPPLER (05/27/2024 4:17 PM EDT) Anatomical Region Laterality Modality Radiographic Clara ging 05/27/2024 4:17 PM EDT Narrative 05/27/2024 4:20 [place] [address] Ultrasound Report Signed Patient: ZARA ROBISON MR#: [id number] : 1995 Acct:[id number] Age/Sex: 28 / F ADM Date: 05/27/24 Loc: FBCO Attending Dr: Gonzales Cutler D.O. Ordering Physician: Gonzales Cutler D.O. Date of Service: 05/27/24 Procedure(s): US OB umbilical artery Accession Number(s): [id number] cc: Gonzales Ctuler D.O.; Physician,Non-Staff M.DMegan [place] [address] Patient Name: ZARA ROBISON MRN: [id number] date: 1995 Sex: F Assigned Patient Location: [facility] Current Patient Location: [facility] Accession/Order Number: [id number] Exam Date: 05/27/2024 15:30 Report Date: 05/27/2024 16:17 At the request of: GONZALES CUTLER Procedure: US OB umbilical artery EXAM: US OB umbilical artery HISTORY: surrogate, low mikey EXAMINATION: US OB umbilical artery HISTORY: surrogate, low mikey COMPARISON: No relevant comparison available. TECHNIQUE: Duplex Doppler evaluation of the umbilical arteries. FINDINGS: Hernandez intrauterine gestation Heart rate: 157 beats minute Clinical age: 36 weeks 4 days Proximal umbilical artery: 87/25 cm/s. Resistive index 0.72. Ratio is 3.5 Mid umbilical artery: 71/32 cm/s. Resistive index 0.55. Ratio 2.2 Distal umbilical artery: 74/33 cm/s. Resistive index 0.56. Ratio 2.3 Forward flow identified throughout diastole US/US OB umbilical artery IMPRESSION: Normal exam. Class 0 Umbilical Artery: Class 0 = Normal umbilical artery blood velocity Class I = increased RI or PI, but still forward flow in diastole Class II = Absent end diastolic flow (AEDF) Class III = Reversal of end diastolic flow (REDF) Resistive Index (RI)<1 Systolic/Diastolic ratio (S:D): An S:D ratio of 2-3 after 34 wks is normal Systolic/Diastolic ratio (S:D): Age 16: 3.01 for the 10th percentile, 4.25 for the 50th percentile, 6.07 for the 90th percentile Age 20: 3.16 for the 10th percentile, 4.04 for the 50th percentile, 5.24 for the 90th percentile Age 24: 2.70 for the 10th percentile, 3.50 for the 50th percentile, 4.75 for the 90th percentile Age 28: 2.41 for the 10th percentile, 3.02 for the 50th percentile, 3.97 for the 90th percentile Age 30: 2.43 for the 10th percentile, 3.04 for the 50th percentile, 3.80 for the 90th percentile Age 32: 2.27 for the 10th percentile, 2.73 for the 50th percentile, 3.57 for the 90th percentile Age 34: 2.08 for the 10th percentile, 2.52 for the 50th percentile, 3.41 for the 90th percentile Age 36: 1.96 for the 10th percentile, 2.35 for the 50th percentile, 3.15 for the 90th percentile Age 38: 1.89 for the 10th percentile, 2.24 for the 50th percentile, 3.10 for the 90th percentile Age 40: 1.88 for the 10th percentile, 2.22 for the 50th percentile, 2.68 for the 90th percentile Age 41: 1.93 for the 10th percentile, 2.21 for the 50th percentile, 2.55 for the 90th percentile Age 42: 1.91 for the 10th percentile, 2.51 for the 50th percentile, 3.21 for the 90th percentile Uteroplacental Artery: Resistive Index (RI): Normal=<0.55 High Resistance=Bilateral notches (after 26 wks) and RI>0.55. Unilateral notches (after 26 wks) and RI>0.65 Systolic/Diastolic ratio (S:D) = 2-3 is normal after 32 weeks. COMPARISON: None. TECHNIQUE: FINDINGS: IMPRESSION: Electronically authenticated by: LINA MODI Date: 05/27/2024 16:17 Dictated By: Lina Modi M.D. Signed By: 05/27/24 1620 DD/ 1617 TD/TT: Community Outreach Coordinator: Procedure Note Radiology, Radiologist, MD - 05/27/2024 [place] [address] Ultrasound Report Signed Patient: ZARA ROBISON NMR#: [id number] : 1995Acct:[id number] Age/Sex: 28 / FADM Date: 05/27/24 Loc: FBCO Attending Dr: Gonzales Cutler D.O. Ordering Physician: Gonzales Cutler D.O. Date of Service: 05/27/24 Procedure(s): US OB umbilical artery Accession Number(s): [id number] cc: Gonzales Cutler D.O.; Physician,Non-Staff Theron [facility] [place] [address] Patient Name: ZARA ROBISON MRN: [id number] date: 1995 Sex: F Assigned Patient Location: [facility] Current Patient Location: [facility] Accession/Order Number: [id number] Exam Date: 05/27/2024 15:30 Report Date: 05/27/2024 16:17 At the request of: GONZALES CUTLER Procedure: US OB umbilical artery EXAM: US OB umbilical artery HISTORY: surrogate, low mikey EXAMINATION: US OB umbilical artery HISTORY: surrogate, low mikey COMPARISON: No relevant comparison available. TECHNIQUE: Duplex Doppler evaluation of the umbilical arteries. FINDINGS: Hernandez intrauterine gestation Heart rate: 157 beats minute Clinical age: 36 weeks 4 days Proximal umbilical artery: 87/25 cm/s. Resistive index 0.72. Ratio is 3.5 Mid umbilical artery: 71/32 cm/s. Resistive index 0.55. Ratio 2.2 Distal umbilical artery: 74/33 cm/s. Resistive index 0.56. Ratio 2.3 Forward flow identified throughout diastole US/US OB umbilical artery IMPRESSION: Normal exam. Class 0 Umbilical Artery: Class 0 = Normal umbilical artery blood velocity Class I = increased RI or PI, but still forward flow in diastole Class II = Absent end diastolic flow (AEDF) Class III = Reversal of end diastolic flow (REDF) Resistive Index (RI)<1 Systolic/Diastolic ratio (S:D): An S:D ratio of 2-3 after 34 wks is normal Systolic/Diastolic ratio (S:D): Age 16: 3.01 for the 10th percentile, 4.25 for the 50th percentile, 6.07for the 90th percentile Age 20: 3.16 for the 10th percentile, 4.04 for the 50th percentile, 5.24for the 90th percentile Age 24: 2.70 for the 10th percentile, 3.50 for the 50th percentile, 4.75for the 90th percentile Age 28: 2.41 for the 10th percentile, 3.02 for the 50th percentile, 3.97for the 90th percentile Age 30: 2.43 for the 10th percentile, 3.04 for the 50th percentile, 3.80for the 90th percentile Age 32: 2.27 for the 10th percentile, 2.73 for the 50th percentile, 3.57for the 90th percentile Age 34: 2.08 for the 10th percentile, 2.52 for the 50th percentile, 3.41for the 90th percentile Age 36: 1.96 for the 10th percentile, 2.35 for the 50th percentile, 3.15for the 90th percentile Age 38: 1.89 for the 10th percentile, 2.24 for the 50th percentile, 3.10for the 90th percentile Age 40: 1.88 for the 10th percentile, 2.22 for the 50th percentile, 2.68for the 90th percentile Age 41: 1.93 for the 10th percentile, 2.21 for the 50th percentile, 2.55for the 90th percentile Age 42: 1.91 for the 10th percentile, 2.51 for the 50th percentile, 3.21for the 90th percentile Uteroplacental Artery: Resistive Index (RI): Normal=<0.55 High Resistance=Bilateral notches (after 26 wks) and RI>0.55. Unilateral notches (after 26 wks) and RI>0.65 Systolic/Diastolic ratio (S:D) = 2-3 is normal after 32 weeks. COMPARISON: None. TECHNIQUE: FINDINGS: IMPRESSION: Electronically authenticated by: LINA MODI Date: 05/27/2024 16:17 Dictated By: Lina Modi M.D. Signed By:05/27/24 1620 DD/ 1617 TD/TT: Community Outreach Coordinator: us Gonzales Cutler DO IMG XR PROCEDURES Final Result documented in this encounter Visit Diagnoses Not on filedocumented in this encounter Additional Health Concerns Active Problems Noted Date Diagnosed Date OB Reminders 12/09/2023 documented as of this encounter
--- OUTSIDE RECORDS SUMMARY | 2025-07-20 14:41 | XMS_ITS | Patient Health Record ---
Author Organization [facility] Address [address] [place], [place] [address] Care Team Providers Care Bi Data Modeler Name Role Phone Wesley Franks Primary Care Provider Allergies No Known Allergies Reason For Referral No Information Medications Medication SIG (Take, Route, Frequency, Duration) Notes Start Date End Date Status Ventolin HFA 108 (90 Base) MCG/ACT INHALE 2 PUFFS BY MOUTH 4 TIMES A DAY; Duration: 75 Active Immunizations Vaccine Route Administration Date Status Comme nts *Tdap (Adacel)-VFC IM Intramuscular 03/20/2015 Administered Status:Complete ,Reason:Given or N/A Social History Tobacco Use: Social History Observation Description Date Details (start date - stop date) Never Smoker NA - NA Sex Assigned At : Social History Observation Description Sex Assigned At Female Household Question Answer Notes Marital status: Number of adults in household: 2 Number of children in household: 4 Tobacco Use/Smoking Question Answer Notes Tobacco use: nonsmoker Sexual History Question Answer Notes Had sex in the past 12 months (vaginal, oral, or anal)? Yes with Men only Use protection? No Last menstrual period 05/18/2023 Plan Of Treatment No Information Insurance Providers Payer Name Payer Address Payer Phone Subscriber Number Group Number Insured Name Patient Relationship to Insured Coverage Start Date Coverage End Date [employer] [address] [place], [place] [id number] Alan Gao Spouse - patient is the spouse of the insured 3 Medical (General) History Medical History History ICD Code Asthma J45.909 Surgical History Surgery Date(Month/Year) Tonsillectomy 1997 Endoscopy 2018
--- OUTSIDE RECORDS SUMMARY | 2025-07-20 14:41 | XMS_ITS | Encounter Summary ---
Author Organization [facility] Address [address] [place] [address] Care Team Providers Care Account Development Specialist Name Role Phone Unavailable Primary Care Provider Unavailabl e Encounter Details Date Type Department Care Team (Late Contact Info) Description 05/30/2024 Abstract NOMSonja TORRES [facility] [place] [address] Power Cutler DO [facility] [address], [place] [address] Social History Tobacco Use Types Packs/Day Years [...] Description 08/01/2025 2:20 PM EDT Consult NOMSonja TORRES [address] [place] [address] Power Cutler DO [address] [place] [id number] documented as of this encounter Goals Goal Patient Goal Type Associated Problems Recent Progress Patient-Stated? Author Reminders Care Plan OB Reminders No Open Scheduling, Background documented as of this encounter Visit Diagnoses Not on filedocumented in this encounter Additional Health Concerns Active Problems Noted Date Diagnosed Date OB Reminders 12/09/2023 documented as of this encounter
--- OUTSIDE RECORDS SUMMARY | 2025-07-20 14:41 | XMS_ITS | Encounter Summary ---
Author Organization [facility] Address [address] [place] [address] Care Team Providers Care Ac/Dc Rewinder Name Role Phone Unavailable Primary Care Provider Unavailabl e Encounter Details Date Type Department Care Team (Late st Contact Info) Description 05/27/2024 Clinisync Result Encounter [facility] External Department Unsolicited Gonzales Cutler DO [address], [facility]11 Social History Tobacco Use Types Packs/Day Years [...] Consult [facility] [address] [place] [phone] Gonzales Cutler DO [address] [place] [address] documented as of this encounter Goals Goal Patient Goal Type Associated Problems Recent Progress Patient-Stated? Author Reminders Care Plan OB Reminders No Open Scheduling, Background documented as of this encounter Procedures Procedure Name Priority Date/Time Associated Diagnosis Comments US OB GROWTH 05/27/2024 4:15 PM EDT documented in this encounter Results * US OB GROWTH (05/27/2024 4:15 PM EDT) Anatomical Region Laterality Modality Other 05/27/2024 4:15 PM EDT Narrative 05/27/2024 4:18 [place] [address] Ultrasound Report Signed Patient: ZARA ROBISON MR#: [id number] : 1995 Acct:[id number] Age/Sex: 28 / F ADM Date: 05/27/24 Loc: [facility] Attending Dr: Gonzales Cutler D.O. Ordering Physician: Gonzales Cutler D.O. Date of Service: 05/27/24 Procedure(s): US OB growth Accession Number(s): [id number] cc: Gonzales Cutler D.O.; Physician,Non-Staff M.DMegan [facility] [place] [address] Patient Name: ZARA ROBISON MRN: [id number] date: 1995 Sex: F Assigned Patient Location: [facility] [place] [facility] [place]/Order Number: [id number] Exam Date: 05/27/2024 15:30 Report Date: 05/27/2024 16:15 At the request of: GONZALES CUTLER Procedure: US OB growth EXAMINATION: US OB growth HISTORY: low mikey COMPARISON: No relevant comparison available. FINDINGS: Heart Rate: 157 Amniotic Fluid Volume: 10.5 cm Number: Single Position: Cephalic BIOMETRY: BPD: 8.86 cm; 35 weeks 6 days; 41% HC: 32.55 cm; 36 weeks 6 days; 29% AC: 29.57 cm; 33 weeks 4 days; <3% FL: 6.8 cm; 34 weeks 5 days; 9% EFW: 2434 g, 5 lbs. 6 oz.; 90% FL/AC: 23% FL/BPD: 76% HC/AC: 1.1 GESTATIONAL AGE: Age by EDC: 36 weeks 4 days IBRAHIMA by EDC: 06/20/2024 Age by US: 35 weeks 2 days IBRAHIMA by US: 06/29/2024 US/US OB growth IMPRESSION: Abdominal circumference less than the 3rd percentile, otherwise normal interval growth Electronically authenticated by: LINA MODI Date: 05/27/2024 16:15 Dictated By: Lina Modi M.D. Signed By: 05/27/248 DD/ 14 TD/TT: Returns Clerk: Procedure Note Radiology, Radiologist, MD - 05/27/2024 [place] [address] Ultrasound Report Signed Patient: ZARA ROBISON NMR#: [id number] : 1995Acct:[id number] Age/Sex: 28 / FADM Date: 05/27/24 Loc: [facility] Attending Dr: Gonzales Cutler D.O. Ordering Physician: Gonzales Cutler D.O. Date of Service: 05/27/24 Procedure(s): US OB growth Accession Number(s): [id number] cc: Gonzales Cutler D.O.; Physician,Non-Staff Theron [facility] [place] [id number] Patient Name: ZARA ROBISON MRN: [id number] date: 1995 Sex: F Assigned Patient Location: [facility] [place] [facility] [place]/Order Number: [id number] Exam Date: 05/27/2024 15:30 Report Date: 05/27/2024 16:15 At the request of: GONZALES CUTLER Procedure: US OB growth EXAMINATION: US OB growth HISTORY: low mikey COMPARISON: No relevant comparison available. FINDINGS: Heart Rate: 157 Amniotic Fluid Volume: 10.5 cm Number: Single Position: Cephalic BIOMETRY: BPD: 8.86 cm; 35 weeks 6 days; 41% HC: 32.55 cm; 36 weeks 6 days; 29% AC: 29.57 cm; 33 weeks 4 days; <3% FL: 6.8 cm; 34 weeks 5 days; 9% EFW: 2434 g, 5 lbs. 6 oz.; 90% FL/AC: 23% FL/BPD: 76% HC/AC: 1.1 GESTATIONAL AGE: Age by EDC: 36 weeks 4 days IBRAHIMA by EDC: 06/20/2024 Age by US: 35 weeks 2 days IBRAHIMA by US: 06/29/2024 US/US OB growth IMPRESSION: Abdominal circumference less than the 3rd percentile, otherwise normal interval growth Electronically authenticated by: LINA MODI Date: 05/27/2024 16:15 Dictated By: Lina Modi M.D. Signed By:05/27/24 1618 DD/ 1615 TD/TT: Returns Clerk: us Gonzales Cutler DO [facility] Final Result documented in this encounter Visit Diagnoses Not on filedocumented in this encounter Additional Health Concerns Active Problems Noted Date Diagnosed Date OB Reminders 12/09/2023 documented as of this encounter
--- OUTSIDE RECORDS SUMMARY | 2025-07-20 14:41 | XMS_ITS | Clinical Summary ---
Author Organization [facility] Address [id number] [address] [place] [address] Care Team Providers Care Ordnance Truck Installation Mechanic Name Role Phone Alan Beatty MD Primary Care Provider [phone] Allergies No known active allergies Medications vit,calc76/iron /folic (PNV 29-1 ORAL) Take 1 tablet by mouth daily. Active magnesium oxide (MAG-OX) 400 mg tablet Take 400 mg by mouth 2 (two) times a day. Active promethazine (PHENERGAN) 12.5 mg tablet Take 12.5 mg by mouth every 4 (four) hours as needed for nausea or vomiting. Active albuterol sulfate (PROAIR HFA INHL) Inhale 1 inhalation 2 (two) times a day as needed. Active cetirizine (ZyrTEC) 10 MG chewable tablet Chew 10 mg and swallow daily. Active Active Problems Patient Care Coordination No te Formatting of this note migh t be different from the original. Per NICU/ High Risk Meeting held on 10/04/19 in the [facility], attended by Dr. Connell, Dr. Garcia, Dr. Mike De Anda, Dr. Wang De Anda, Dr. Moser, Dr. Mendoza, Dr. Villarreal, Fartun Neil [facility], Anna De León ASSISTANT DESIGNER, Jaelyn Carson [facility], Delmy Christian [facility], Safia Rasheed- Lead parking lot attendant and cashier, Esther Dimas RN, and Sugar Shah RN, The following recommendations were made: No NICU needed at this time; Need to re-evaluate and follow-up at [facility]; no formal dx on cystic structure; no recommendations for delivery location at this point No known active problems Family History Medical History Relation Name Comments Anxiety disorder Mother COPD Mother Relation Name Status Comments Mother Social History Tobacco Use Types Packs/Day Years Used Date Smoking Tobacco: Never Smokeless Tobacco: Never Alcohol Use Standard Drinks/Week Comments Never 0 (1 standard drink = 0.6 oz pur e alcohol) AUDIT-C Answer Date Recorded Frequency of Alcohol Consumption Never 09/13/2019 Average Number of Drinks Not on file 019 Frequency of Binge Drinking Not on file 08/17 Childcare Answer Date Recorded Childcare Unknown 04/27/2019 Employment Answer Date Recorded Employment Unknown 04/27/2019 Purpose - Life Answer Date Recorded Purpose and direction in life Unknown Comments No Sex and Gender Information Value Date Recorded Sex Assigned at Not on file Legal Sex Female 12:12 PM EDT Gender Identity Not on file Sexual Orientation Not on file Last Filed Vital Signs Vital Sign Reading Time Taken Comments Blood Pressure 106/61 09/16/2019 12:03 PM EDT Pulse 79 09/16/2019 12:03 PM EDT Temperature - - Respiratory Rate - - Oxygen Saturation - - Inhaled Oxygen Concentration - - Weight 60.6 kg (133 lb 9.6 oz) 09/16/2019 12:03 PM EDT Height 154.9 cm (5' 1 ) 09/16/2019 12:03 PM EDT Body Mass Index 25.24 09/16/2019 12:03 PM EDT Plan of Treatment Health Maintenance Due Date Last Done Comments Depression Screening 2005 Tobacco Screening 2005 Adult BMI Screening 2011 DTaP,Tdap and Td Vaccines (1 - Tdap) 2012 Pap Smear 2014 Influenza Vaccine 07/17/2025 Medical Devices Not on file Insurance [facility] MEDICAID Care Teams Ordnance Truck Installation Mechanic Relationship Specialty Start Date End Date Alan Beatty MD PCP - General Family Medicine 09/16/19
--- OUTSIDE RECORDS SUMMARY | 2025-07-20 14:41 | XMS_ITS | Encounter Summary ---
Author Organization [facility] Address [address] [place] [address] Care Team Providers Care Magazine Filler Name Role Phone Unavailable Primary Care Provider Unavailabl e Encounter Details Date Type Department Care Team (Late st Contact Info) Description 05/10/2024 Clinisync Result Encounter [facility] External Department Unsolicited Gonzales Cutler DO [address], [facility]11 Social History Tobacco Use Types Packs/Day [...] Consult [facility] [address] [place] [phone] Gonzales Cutler DO [address] [place] [address] documented as of this encounter Goals Goal Patient Goal Type Associated Problems Recent Progress Patient-Stated? Author Reminders Care Plan OB Reminders No Open Scheduling, Background documented as of this encounter Procedures Procedure Name Priority Date/Time Associated Diagnosis Comments US OB BPP W NON-STRESS 05/10/2024 2:51 PM EDT documented in this encounter Results * US OB BPP W NON-STRESS (05/10/2024 2:51 PM EDT) Anatomical Region Laterality Modality Other 05/10/2024 2:51 PM EDT Narrative 05/10/2024 2:54 [place] [address] Ultrasound Report Signed Patient: ZARA ROBISON MR#: [id number] : 1995 Acct:[id number] Age/Sex: 28 / F ADM Date: 05/10/24 Loc: [facility] 250-[address]: Gonzales Cutler D.O. Ordering Physician: Gonzales Cutler D.O. Date of Service: 05/10/24 Procedure(s): US OB BPP w non-stress Accession Number(s): [id number] cc: Gonzales Cutelr D.O.; Physician,Non-Staff M.DMegan [facility] [place] [address] Patient Name: ZARA ROBISON MRN: [id number] date: 1995 Sex: F Assigned Patient Location: [facility] Current Patient Location: [facility] Accession/Order Number: [id number] Exam Date: 05/10/2024 14:12 Report Date: 05/10/2024 14:51 At the request of: GONZALES CUTLER Procedure: US OB BPP w non-stress EXAMINATION: US OB BPP w non-stress HISTORY: Surrogate Z33.3 COMPARISON: 07/06/2024 TECHNIQUE: Ultrasound biophysical profile was performed in the radiology department. FINDINGS: BREATHING MOVEMENTS: 2 GROSS BODY MOVEMENTS: 2 TONE: 2 QUALITATIVE AMNIOTIC FLUID VOLUME: 2 PRESENTATION: CEPHALIC HEART RATE: 127.92 bpm AMNIOTIC FLUID VOLUME: 12.2 cm GESTATIONAL AGE: 34 weeks 1 day US/US OB BPP w non-stress IMPRESSION: Total biophysical profile score: 8 Electronically authenticated by: LINA MODI Date: 05/10/2024 14:51 Dictated By: Lina Modi M.D. Signed By: 05/10/241453 DD/ 50 TD/TT: Physical Sciences Instructor: Procedure Note Radiology, Radiologist, - 05/10/2024 [place] [address] Ultrasound Report Signed Patient: ZARA ROBISON NMR#: [id number] : 1995Acct:[id number] Age/Sex: 28 / FADM Date: 05/10/24 Loc: [facility] 250-[address]: Gonzales Cutler D.O. Ordering Physician: Gonzales Cutler D.O. Date of Service: 05/10/24 Procedure(s): US OB BPP w non-stress Accession Number(s): [id number] cc: Gonzales Cutler D.O.; Physician,Non-Staff Theron [facility] [place] [address] Patient Name: ZARA ROBISON MRN: [id number] date: 1995 Sex: F Assigned Patient Location: [facility] Current Patient Location: [facility] Accession/Order Number: [id number] Exam Date: 05/10/2024 14:12 Report Date: 05/10/2024 14:51 At the request of: GONZALES CUTLER Procedure: US OB BPP w non-stress EXAMINATION: US OB BPP w non-stress HISTORY: Surrogate Z33.3 COMPARISON: 07/06/2024 TECHNIQUE: Ultrasound biophysical profile was performed in the radiology department. FINDINGS: BREATHING MOVEMENTS: 2 GROSS BODY MOVEMENTS: 2 TONE: 2 QUALITATIVE AMNIOTIC FLUID VOLUME: 2 PRESENTATION: CEPHALIC HEART RATE: 127.92 bpm AMNIOTIC FLUID VOLUME: 12.2 cm GESTATIONAL AGE: 34 weeks 1 day US/US OB BPP w non-stress IMPRESSION: Total biophysical profile score: 8 Electronically authenticated by: LINA MODI Date: 05/10/2024 14:51 Dictated By: Lina Modi M.D. Signed By:05/10/241453 DD/ 50 TD/TT: Physical Sciences Instructor: us Gonzales Cutler DO [facility] Final Result documented in this encounter Visit Diagnoses Not on filedocumented in this encounter Additional Health Concerns Active Problems Noted Date Diagnosed Date OB Reminders 12/09/2023 documented as of this encounter
--- OUTSIDE RECORDS SUMMARY | 2025-07-20 14:42 | XMS_ITS | Encounter Summary ---
Author Organization [facility] Address [address] [place] [address] Care Team Providers Care Commissions Coordinator Name Role Phone Unavailable Primary Care Provider Unavailabl e Encounter Details Date Type Department Care Team (Late st Contact Info) Description 05/31/2024 Clinisync Result Encounter [facility] External Department Unsolicited Gonzales Cutler DO [address], [facility]11 Social History Tobacco Use Types Packs/Day Years [...] Consult [facility] [address] [place] [phone] Gonzales Cutler DO [address] [place] [address] documented as of this encounter Goals Goal Patient Goal Type Associated Problems Recent Progress Patient-Stated? Author Reminders Care Plan OB Reminders No Open Scheduling, Background documented as of this encounter Procedures Procedure Name Priority Date/Time Associated Diagnosis Comments US OB BPP W NON-STRESS 05/31/2024 3:11 PM EDT documented in this encounter Results * US OB BPP W NON-STRESS (05/31/2024 3:11 PM EDT) Anatomical Region Laterality Modality Other 05/31/2024 3:11 PM EDT Narrative 05/31/2024 3:14 [place] [address] Ultrasound Report Signed Patient: ZARA ROBISON MR#: [id number] : 1995 Acct:[id number] Age/Sex: 28 / F ADM Date: 05/31/24 Loc: [facility] 250-[address]: Gonzales Cutler D.O. Ordering Physician: Gonzales Cutler D.O. Date of Service: 05/31/24 Procedure(s): US OB BPP w non-stress Accession Number(s): [id number] cc: Gonzales Cutler D.O.; Physician,Non-Staff M.DMegan [facility] [place] [id number] Patient Name: ZARA ROBISON MRN: [id number] date: 1995 Sex: F Assigned Patient Location: [facility] Current Patient Location: [facility] Accession/Order Number: [id number] Exam Date: 05/31/2024 14:48 Report Date: 05/31/2024 15:11 At the request of: GONZALES CUTLER Procedure: US OB BPP w non-stress EXAMINATION: US OB BPP w non-stress HISTORY: Surrogate Z33.3 COMPARISON: No relevant comparison available. TECHNIQUE: Ultrasound biophysical profile was performed in the radiology department. FINDINGS: BREATHING MOVEMENTS: 2 GROSS BODY MOVEMENTS: 2 TONE: 2 QUALITATIVE AMNIOTIC FLUID VOLUME: 2 PRESENTATION: CEPHALIC HEART RATE: 170.89 bpm AMNIOTIC FLUID VOLUME: 12.4 cm GESTATIONAL AGE: 37 weeks 1 day US/US OB BPP w non-stress IMPRESSION: Total biophysical profile score: 8 Electronically authenticated by: LINA MODI Date: 05/31/2024 15:11 Dictated By: Lina Modi M.D. Signed By: 05/31/241513 DD/ 10 TD/TT: Spark Plug Tester: Procedure Note Radiology, Radiologist, - 05/31/2024 [place] [address] Ultrasound Report Signed Patient: ZARA ROBISON NMR#: [id number] : 1995Acct:[id number] Age/Sex: 28 / FADM Date: 05/31/24 Loc: [facility] 250-[address]: Gonzales Cutler D.O. Ordering Physician: Gonzales Cutler D.O. Date of Service: 05/31/24 Procedure(s): US OB BPP w non-stress Accession Number(s): [id number] cc: Gonzales Cutler D.O.; Physician,Non-Staff Ther[place] [facility] [place] [address] Patient Name: ZARA ROBISON MRN: [id number] date: 1995 Sex: F Assigned Patient Location: [facility] Current Patient Location: [facility] Accession/Order Number: [id number] Exam Date: 05/31/2024 14:48 Report Date: 05/31/2024 15:11 At the request of: GONZALES CUTLER Procedure: US OB BPP w non-stress EXAMINATION: US OB BPP w non-stress HISTORY: Surrogate Z33.3 COMPARISON: No relevant comparison available. TECHNIQUE: Ultrasound biophysical profile was performed in the radiology department. FINDINGS: BREATHING MOVEMENTS: 2 GROSS BODY MOVEMENTS: 2 TONE: 2 QUALITATIVE AMNIOTIC FLUID VOLUME: 2 PRESENTATION: CEPHALIC HEART RATE: 170.89 bpm AMNIOTIC FLUID VOLUME: 12.4 cm GESTATIONAL AGE: 37 weeks 1 day US/US OB BPP w non-stress IMPRESSION: Total biophysical profile score: 8 Electronically authenticated by: LINA MODI Date: 05/31/2024 15:11 Dictated By: Lina Modi M.D. Signed By:05/31/241513 DD/ 1511 TD/TT: Spark Plug Tester: us Gonzales Cutler DO [facility] Final Result documented in this encounter Visit Diagnoses Not on filedocumented in this encounter Additional Health Concerns Active Problems Noted Date Diagnosed Date OB Reminders 12/09/2023 documented as of this encounter
--- OUTSIDE RECORDS SUMMARY | 2025-07-20 14:42 | XMS_ITS | Encounter Summary ---
Author Organization [facility] Address [address] [place] [address] Care Team Providers Care Brick Pointer Name Role Phone Unavailable Primary Care Provider Unavailabl e Encounter Details Date Type Department Care Team (Late Contact Info) Description 05/31/2024 Abstract [facility] TORRES [address] [place] [address] Teagan Mello LPN [address] [facility] [place] [id number] Social History Tobacco Use Types Packs/Day Years [...] 2:20 PM EDT Consult NOMSonja TORRES [address] [place] [address] Poewr Cutler DO [address] [facility] [place] [address] documented as of this encounter Goals Goal Patient Goal Type Associated Problems Recent Progress Patient-Stated? Author Reminders Care Plan OB Reminders No Open Scheduling, Background documented as of this encounter Visit Diagnoses Not on filedocumented in this encounter Additional Health Concerns Active Problems Noted Date Diagnosed Date OB Reminders 12/09/2023 documented as of this encounter
--- OUTSIDE RECORDS SUMMARY | 2025-07-20 14:42 | XMS_ITS | Encounter Summary ---
Author Organization [facility] Address [address] [place] [address] Care Team Providers Care Blackener Name Role Phone Unavailable Primary Care Provider Unavailabl e Encounter Details Date Type Department Care Team (Late st Contact Info) Description 12/14/2023 Clinisync Result Encounter [facility] External Department Unsolicited Gonzales Cutler DO [address], [facility]11 Social History Tobacco Use Types Packs/Day [...] Consult [facility]BG[facility] [address] [place] [phone] Gonzales Cutler DO [address] [place] [address] documented as of this encounter Goals Goal Patient Goal Type Associated Problems Recent Progress Patient-Stated? Author Reminders Care Plan OB Reminders No Open Scheduling, Background documented as of this encounter Procedures Procedure Name Priority Date/Time Associated Diagnosis Comments US OB GROWTH 12/14/2023 5:11 PM EST documented in this encounter Results * US OB GROWTH (12/14/2023 5:11 PM EST) Anatomical Region Laterality Modality Other 12/14/2023 5:11 PM EST Narrative 12/14/2023 5:14 [place] [address] Ultrasound Report Signed Patient: ZARA ROBISON MR#: [id number] : 1995 Acct:[id number] Age/Sex: 28 / F ADM Date: 12/14/23 Loc: US Attending Dr: Gonzales Cutler D.O. Ordering Physician: Gonzales Cutler D.O. Date of Service: 12/14/23 Procedure(s): US OB growth Accession Number(s): [id number] cc: Gonzales Cutler D.O.; YANG EMANUEL M.D. [facility] [place] [address] Patient Name: ZARA ROBISON MRN: [id number] date: 1995 Sex: F Assigned Patient Location: US Current Patient Location: US Accession/Order Number: [id number] Exam Date: 12/14/2023 15:40 Report Date: 12/14/2023 17:11 At the request of: GONZALES CUTLER Procedure: US OB growth EXAMINATION: US OB growth HISTORY: bleeding in early O20.9 COMPARISON: No relevant comparison available. TECHNIQUE: Transabdominal sonographic examination was performed for obstetrical and evaluation. FINDINGS: Number: 1 Heart Rate: 159.8 bpm H.B. /min Amniotic Fluid Volume: Subjectively normal Placental Location: ANTERIOR Hypoechoic area measuring 3.9 x 2.8 x 4.4 cm adjacent to the gestational sac BIOMETRY: BPD: 2.1 cm 13 weeks 3 days , 51% HC: 8.2 cm 13 weeks 4 days, 50% AC: 6.6 cm 13 weeks 2 days, 70% FL: 0.9 cm 12 weeks 5 days, 27% EFW:68.1 grams; 2 oz, 28% FL/AC: 13.3 FL/BPD: 41.5 HC/AC: 1.2 GESTATIONAL AGE: Age by EDC: 13 weeks 0 days Age by current US: 13 weeks 2 days IBRAHIMA by current US: 06/18/24 IBRAHIMA by EDC: 06/20/24 US/US OB growth IMPRESSION: Normal interval growth 4.4 cm subchorionic hemorrhage *Reference: [employer] Practice Guideline for the performance of Obstetric Ultrasound Examinations, August 16, 2007. Electronically authenticated by: LINA MODI Date: 12/14/2023 17:11 Dictated By: Lina Modi M.D. Signed By: 12/14/231713 DD/ 10 TD/TT: Cleaning Handyman: Procedure Note Radiology, Radiologist, - 12/14/2023 [place] [address] Ultrasound Report Signed Patient: ZARA ROBISON NMR#: [id number] : 1995Acct:[id number] Age/Sex: 28 / FADM Date: 12/14/23 Loc: US Attending Dr: Gonzales Cutler D.O. Ordering Physician: Gonzales Cutler D.O. Date of Service: 12/14/23 Procedure(s): US OB growth Accession Number(s): [id number] cc: Gonzales Cutler D.O.; YANG EMANUEL M.D. [facility] [place] [address] Patient Name: ZARA ROBISON MRN: [id number] date: 1995 Sex: F Assigned Patient Location: US Current Patient Location: US Accession/Order Number: [id number] Exam Date: 12/14/2023 15:40 Report Date: 12/14/2023 17:11 At the request of: GONZALES CUTLER Procedure: US OB growth EXAMINATION: US OB growth HISTORY: bleeding in early O20.9 COMPARISON: No relevant comparison available. TECHNIQUE: Transabdominal sonographic examination was performed for obstetrical and evaluation. FINDINGS: Number: 1 Heart Rate: 159.8 bpm H.B. /min Amniotic Fluid Volume: Subjectively normal Placental Location: ANTERIOR Hypoechoic area measuring 3.9 x 2.8 x 4.4 cm adjacent to the gestationalsac BIOMETRY: BPD: 2.1 cm 13 weeks 3 days , 51% HC: 8.2 cm 13 weeks 4 days, 50% AC: 6.6 cm 13 weeks 2 days, 70% FL: 0.9 cm 12 weeks 5 days, 27% EFW:68.1 grams; 2 oz, 28% FL/AC: 13.3 FL/BPD: 41.5 HC/AC: 1.2 GESTATIONAL AGE: Age by EDC: 13 weeks 0 days Age by current US: 13 weeks 2 days IBRAHIMA by current US: 06/18/24 IBRAHMIA by EDC: 06/20/24 US/US OB growth IMPRESSION: Normal interval growth 4.4 cm subchorionic hemorrhage *Reference: [employer] Practice Guideline for the performance of Obstetric Ultrasound Examinations, August 16, 2007. Electronically authenticated by: LINA MODI Date: 12/14/2023 17:11 Dictated By: Lina Modi M.D. Signed By:12/14/231713 DD/ 10 TD/TT: Cleaning Handyman: us Gonzales Omayra DO [facility] Final Result documented in this encounter Visit Diagnoses Not on filedocumented in this encounter Additional Health Concerns Active Problems Noted Date Diagnosed Date OB Reminders 12/09/2023 documented as of this encounter
--- OUTSIDE RECORDS SUMMARY | 2025-07-20 14:42 | XMS_ITS | Encounter Summary ---
Author Organization [facility] Address [address] [place] [address] Care Team Providers Care Test Architect Name Role Phone Unavailable Primary Care Provider Unavailabl e Encounter Details Date Type Department Care Team (Late Contact Info) Description 04/13/2024 Abstract NOMSonja TORRES [facility] [place] [phone] Power Cutler DO [facility] [address], [place] [address] Social History Tobacco Use Types Packs/Day Years [...] EDT Consult NOMSonja TORRES [address] [place] [phone] Power Cutler DO [address] [place] [phone] documented as of this encounter Goals Goal Patient Goal Type Associated Problems Recent Progress Patient-Stated? Author Reminders Care Plan OB Reminders No Open Scheduling, Background documented as of this encounter Visit Diagnoses Not on filedocumented in this encounter Additional Health Concerns Active Problems Noted Date Diagnosed Date OB Reminders 12/09/2023 documented as of this encounter
--- OUTSIDE RECORDS SUMMARY | 2025-07-20 14:42 | XMS_ITS | Encounter Summary ---
Author Organization [facility] Address [address] [place] [address] Care Team Providers Care Anode Rebuilder Name Role Phone Unavailable Primary Care Provider Unavailabl e Encounter Details Date Type Department Care Team (Late Contact Info) Description 05/31/2024 Abstract NOMSonja TORRES [facility] [place] [address] Power Cutler DO [facility] [place]a Liao, [place] [address] Social History Tobacco Use Types Packs/Day Years [...] EDT Consult NOMSonja TORRES [address] [place] [address] Power Cutler DO [address] [place] [id number] documented as of this encounter Goals Goal Patient Goal Type Associated Problems Recent Progress Patient-Stated? Author Reminders Care Plan OB Reminders No Open Scheduling, Background documented as of this encounter Visit Diagnoses Not on filedocumented in this encounter Additional Health Concerns Active Problems Noted Date Diagnosed Date OB Reminders 12/09/2023 documented as of this encounter
--- OUTSIDE RECORDS SUMMARY | 2025-07-20 14:42 | XMS_ITS | Encounter Summary ---
Author Organization [facility] Address [address] [place] [address] Care Team Providers Care Attacher Name Role Phone Unavailable Primary Care Provider Unavailabl e Encounter Details Date Type Department Care Team (Late Contact Info) Description 06/02/2024 Abstract NOMSonja TORRES [facility] [place] [address] Power Cutler DO [facility] [place]iao, [place] [address] Social History Tobacco Use Types Packs/Day Years [...] EDT Consult NOMSonja TORRES [address] [place] [address] Power Cutler DO [address] [place] [phone] documented as of this encounter Goals Goal Patient Goal Type Associated Problems Recent Progress Patient-Stated? Author Reminders Care Plan OB Reminders No Open Scheduling, Background documented as of this encounter Visit Diagnoses Not on filedocumented in this encounter Additional Health Concerns Active Problems Noted Date Diagnosed Date OB Reminders 12/09/2023 documented as of this encounter
--- OUTSIDE RECORDS SUMMARY | 2025-07-20 14:42 | XMS_ITS | Encounter Summary ---
Author Organization [facility] Address [address] [place] [address] Care Team Providers Care Mail Processor Name Role Phone Unavailable Primary Care Provider Unavailabl e Encounter Details Date Type Department Care Team (Late st Contact Info) Description 05/29/2023 Abstract NOMSonja TORRES [facility] [place] [address] Power Cutler DO [address], [place] [address] Social History Tobacco Use Types Packs/Day Years Used Date Smoking Tobacco: Never Assessed Comments Unknown Sex and Gender Information Value [...] 08/01/2025 2:20 PM EDT Consult NOMSonja TORRES [facility] [place] [address] Power Cutler DO [address], [facility]11 documented as of this encounter Visit Diagnoses Not on filedocumented in this encounter
--- OUTSIDE RECORDS SUMMARY | 2025-07-20 14:42 | XMS_ITS | Encounter Summary ---
Author Organization [facility] Address [address] [place] [address] Care Team Providers Care Hydraulic Specialist Name Role Phone Unavailable Primary Care Provider Unavailabl e Encounter Details Date Type Department Care Team (Late st Contact Info) Description 05/06/2024 Clinisync Result Encounter NOMS External Department Unsolicited Gonzales Cutler DO [address], [facility]11 Social History Tobacco Use Types Packs/Day [...] Consult NOMSonja Liao OBGYN [address] [place] [phone] Gonzales Cutler DO [address] [place] [address] documented as of this encounter Goals Goal Patient Goal Type Associated Problems Recent Progress Patient-Stated? Author Reminders Care Plan OB Reminders No Open Scheduling, Background documented as of this encounter Procedures Procedure Name Priority Date/Time Associated Diagnosis Comments US OB BPP W NON-STRESS 05/06/2024 4:42 PM EDT documented in this encounter Results * US OB BPP W NON-STRESS (05/06/2024 4:42 PM EDT) Anatomical Region Laterality Modality Other 05/06/2024 4:42 PM EDT Narrative 05/06/2024 4:45 [place] [address] Ultrasound Report Signed Patient: ZARA ROBISON MR#: [id number] : 1995 Acct:[id number] Age/Sex: 28 / F ADM Date: 05/06/24 Loc: LAB Attending Dr: Gonzales Cutler D.O. Ordering Physician: Gonzales Cutler D.O. Date of Service: 05/06/24 Procedure(s): US OB BPP w non-stress Accession Number(s): [id number] cc: Gonzales Cutler D.O.; Physician,Non-Staff M.Ahmet [address] [address] Patient Name: ZARA ROBISON MRN: [id number] date: 1995 Sex: F Assigned Patient Location: [facility] Current Patient Location: Accession/Order Number: [id number] Exam Date: 05/06/2024 15:29 Report Date: 05/06/2024 16:42 At the request of: GONZALES CUTLER Procedure: US OB BPP w non-stress EXAM: US OB BPP w non-stress HISTORY: low mikey COMPARISON: US OB BPP w non-stress Study Date: 05/03/2024 TECHNIQUE: Limited ultrasound for evaluation of biophysical profile is performed. Multiple grayscale and color images are submitted for review. FINDINGS: Single live intrauterine seen with heart rate 153 bpm. Biophysical profile: breathin body movements: 2 tone: 2 Amniotic fluid volume: 2 Total biophysical profile score is 8 out of 8. Amniotic fluid index measures 11.5 cm. US/US OB BPP w non-stress IMPRESSION: Single live intrauterine seen with heart rate 153 bpm. Total biophysical profile score is 8 out of 8. Electronically authenticated by: MARY CAMPBELL Date: 05/06/2024 16:42 Dictated By: Mary Campbell M.D. Signed By: 05/06/241644 DD/ 41 TD/TT: Lighting Engineering Technician: Procedure Note Radiology, Radiologist, MD - 05/06/2024 [place] [address] Ultrasound Report Signed Patient: ZARA ROBISON NMR#: [id number] : 1995Acct:[id number] Age/Sex: 28 / FADM Date: 05/06/24 Loc: LAB Attending Dr: Gonzales Cutler D.O. Ordering Physician: Gonzales Cutler D.O. Date of Service: 05/06/24 Procedure(s): US OB BPP w non-stress Accession Number(s): [id number] cc: Gonzales Cutler D.O.; Physician,Non-Staff Theron The [place] [address] Patient Name: ZARA ROBISON MRN: [id number] date: 1995 Sex: F Assigned Patient Location: [facility] Current Patient Location: Accession/Order Number: [id number] Exam Date: 05/06/2024 15:29 Report Date: 05/06/2024 16:42 At the request of: GONZALES CUTLER Procedure: US OB BPP w non-stress EXAM: US OB BPP w non-stress HISTORY: low mikey COMPARISON: US OB BPP w non-stress Study Date: 05/03/2024 TECHNIQUE: Limited ultrasound for evaluation of biophysical profile is performed. Multiple grayscale and color images are submitted for review. FINDINGS: Single live intrauterine seen with heart qpul507 bpm. Biophysical profile: breathin body movements: 2 tone: 2 Amniotic fluid volume: 2 Total biophysical profile score is 8 out of 8. Amniotic fluid index measures 11.5 cm. US/US OB BPP w non-stress IMPRESSION: Single live intrauterine seen with heart rate 153 bpm. Total biophysical profile score is 8 out of 8. Electronically authenticated by: MARY CAMPBELL Date: 05/06/2024 16:42 Dictated By: Mary Campbell M.D. Signed By:05/06/24 1645 DD/ 41 TD/TT: Lighting Engineering Technician: us Gonzales Omayra DO [facility] Final Result documented in this encounter Visit Diagnoses Not on filedocumented in this encounter Additional Health Concerns Active Problems Noted Date Diagnosed Date OB Reminders 12/09/2023 documented as of this encounter
--- OUTSIDE RECORDS SUMMARY | 2025-07-20 14:42 | XMS_ITS | Encounter Summary ---
Author Organization [facility] Address [address] [place] [address] Care Team Providers Care Chief Fishery Division Name Role Phone Unavailable Primary Care Provider Unavailabl e Encounter Details Date Type Department Care Team (Late Contact Info) Description 07/20/2025 Bamboo flowsheet NOMSonja Liao OBLEANNE [address] [facility] [address] Cherie Callahan, PAPER REEL OPERATOR [address] [facility] [place] [address] Social History Tobacco Use Types Packs/Day Years [...] 08/01/2025 2:20 PM EDT Consult NOMSonja Liao OBLEANNE [address] [place] [address] Power Cutler DO [address] [facility] [address] [place], [facility]11 documented as of this encounter Goals Goal Patient Goal Type Associated Problems Recent Progress Patient-Stated? Author Reminders Care Plan OB Reminders No Open Scheduling, Background documented as of this encounter Visit Diagnoses Not on filedocumented in this encounter Additional Health Concerns Active Problems Noted Date Diagnosed Date OB Reminders 12/09/2023 documented as of this encounter
--- OUTSIDE RECORDS SUMMARY | 2025-07-20 14:42 | XMS_ITS | Encounter Summary ---
Author Organization [facility] Address [address] [place] [address] Care Team Providers Care Devil Tender Name Role Phone Unavailable Primary Care Provider Unavailabl e Encounter Details Date Type Department Care Team (Late Contact Info) Description 06/01/2024 Abstract NOMSonja TORRES [address] [facility] [place] [address] Teagan Mello LPN 102 [facility] [place] [phone] Social History Tobacco Use Types Packs/Day Years [...] 2:20 PM EDT Consult NOMSonja TORRES [address] [facility] [place] [address] Power Cutler DO [address] [facility] [place] [address] documented as of this encounter Goals Goal Patient Goal Type Associated Problems Recent Progress Patient-Stated? Author Reminders Care Plan OB Reminders No Open Scheduling, Background documented as of this encounter Visit Diagnoses Not on filedocumented in this encounter Additional Health Concerns Active Problems Noted Date Diagnosed Date OB Reminders 12/09/2023 documented as of this encounter
--- OUTSIDE RECORDS SUMMARY | 2025-07-20 14:42 | XMS_ITS | Encounter Summary ---
Author Organization [facility] Address [address] [place] [address] Care Team Providers Care Synthetic Resin Operator Name Role Phone Unavailable Primary Care Provider Unavailabl e Encounter Details Date Type Department Care Team (Late Contact Info) Description 04/12/2024 Abstract NOMSonja TORRES [facility] [place] [phone] Power Cutler DO [facility] [address], [place] [address] Social History Tobacco Use Types Packs/Day Years [...] EDT Consult NOMSonja TORRES [address] [place] [address] Power Cutler DO [address] [place] [place] [phone] documented as of this encounter Goals Goal Patient Goal Type Associated Problems Recent Progress Patient-Stated? Author Reminders Care Plan OB Reminders No Open Scheduling, Background documented as of this encounter Visit Diagnoses Not on filedocumented in this encounter Additional Health Concerns Active Problems Noted Date Diagnosed Date OB Reminders 12/09/2023 documented as of this encounter
--- OUTSIDE RECORDS SUMMARY | 2025-07-20 14:42 | XMS_ITS | Clinical Summary ---
Author Organization [facility] Address [address] [place] [address] Care Team Providers Care Tape Calender Name Role Phone Unavailable Primary Care Provider Unavailabl e Social History Tobacco Use Types Packs/Day Years Used Date Smoking Tobacco: Never Assessed Comments Unknown Sex and Gender Information Value Date Recorded Sex Assigned at Not on file Legal Sex Female 12:27 AM EDT Gender Identity Not on file Sexual Orientation Not on file Plan of Treatment Not on file
--- OUTSIDE RECORDS SUMMARY | 2025-07-20 14:42 | XMS_ITS | Clinical Summary ---
Author Organization [facility] Address [address] [place] [address] Care Team Providers Care Corporate Meeting Planner Name Role Phone Unavailable Primary Care Provider Unavailabl e Allergies No known active allergies Medications albuterol HFA 90 mcg/act inhaler Inhale 2 puffs every 6 (six) hours if needed Active loratadine-pseudoe phedrine ER (Alavert Allergy/Sinus) 5-120 MG 12 hr tablet every 12 (twelve) hours Active ondansetron ODT (Zofran-ODT) 4 MG disintegrating tabletIndications: Nausea DISSOLVE 1 TABLET ON TONGUE EVERY 6 HOURS NEEDED FOR NAUSEA OR VOMITING 30 tablet 2 03/24/20 24 Active omeprazole (PriLOSEC) [address] capsuleIndications :Third trimester ([facility]) Take 1 capsule (20 mg) by mouth in the morning. Take before meals. Do not crush or chew.. 30 capsule 11 03/28/20 24 Active doxycycline (Vibramycin) 100 MG capsuleIndications :Cervicitis and endocervicitis Take 1 capsule (100 mg) by mouth in the morning and 1 capsule (100 mg) before bedtime. Do all this for 7 days. Take with at least 8 ounces (large glass) of water, do not lie down for 30 minutes after. 14 capsule 07/20/20 25 025 Active Vqgobogu-Jtv-Da-FA ( 1 + IRON PO) Take 1 each by mouth in the morning. 025 Discontinued ondansetron (Zofran) 4 MG tabletIndications: Nausea and vomiting, unspecified vomiting type TAKE 1 TABLET BY MOUTH EVERY 6 HOURS NEEDED FOR NAUSEA OR VOMITING FOR UP TO 14 DAYS 56 tablet 12/23/19 25 025 Discontinued norgestimate-ethin yl estradiol (Sprintec 28) 0.25-35 MG-MCG tabletIndications: Encounter for initial prescription of contraceptive pills Take 1 tablet by mouth Daily for 28 days Take 1 tablet by mouth daily 28 tablet 11 06/21/20 25 025 Discontinued Active Problems Problem Noted Date Diagnosed Date Surrogate ([facility]) 07/06/2023 Encounters Date Type Department Care Team Description 07/20/2025 9:00 AM EDT Procedure Visit [facility] Keshawn TORRES [address] [place] [address] Cherie Callahan, SHU Well woman exam with routine gynecological exam (Primary Dx); Exposure to STD; Vaginal discharge; Pelvic pain in female; Hormone disorder; Cervicitis and endocervicitis 07/20/2025 Bamboo flowsheet [facility] Keshawn TORRES [facility] [place] [address] Cherie Callahan NP 07/19/2025 Travel 06/21/2025 Refill [facility] Keshawn TORRES [address] [place], [place] [address] [place] [address] Safia Avalos, PA Encounter for initial prescription of contraceptive pills from Last 3 Months Family History Medical History Relation Name Comments No Known Problems Daughter 1 No Known Problems Daughter 2 No Known Problems Daughter 3 Alcohol abuse Father Depression Father Stroke Maternal Grandmother Anxiety disorder Mother COPD Mother Hypertension Mother Brain cancer Paternal Grandfather Stroke Paternal Grandmother Anxiety disorder Sister Depression Sister Hypertension Sister Sarcoidosis Sister No Known Problems Son Relation Name Status Comments Daughter 1 Alive Daughter 2 Alive Daughter 3 Alive Father Maternal Grandmother Mother Alive Paternal Grandfather Paternal Grandmother Sister Son Alive Social History Tobacco Use Types Packs/Day Years Used Date Smoking Tobacco: Never Tobacco Cessation:Counseling Given: Not Answered Comments Unknown Sex and Gender Information Value Date Recorded Sex Assigned at Female 05/08/2023 11:20 AM EDT Legal Sex Female 11:47 PM EDT Gender Identity Female 05/08/2023 11:20 AM EDT Sexual Orientation Straight 05/08/2023 11 :20 AM EDT Last Filed Vital Signs Vital Sign Reading Time Taken Comments Blood Pressure 120/70 07/20/2025 9:16 AM EDT Pulse - - Temperature - - Respiratory Rate - - Oxygen Saturation - - Inhaled Oxygen Concentration - - Weight 59.5 kg (131 lb 1.9 oz) 07/20/2025 9:16 A M EDT Height 157.5 cm (5' 2 ) 07/06/2023 8:57 AM EDT Body Mass Index 23.98 07/06/2023 8:57 AM EDT Plan of Treatment Upcoming Encounters Date Type Department Care Team (Late st Contact Info) Description 08/01/2025 2:20 PM EDT Consult [facility]S Keshawn OBGYN [address] [facility] [place] [address] Poewr Cutler DO [address] [facility] [address] [place] [place], [place] [id number] Health Maintenance Due Date Last Done Comments Influenza Vaccine (#1) 2025 2, 08/04/2021, 09/13/2020, Additional history exists Cervical Cancer Screening 07/06/2028 HPV/Cotest 07/06/2028 Pap Smear 07/06/2028 07/06/2023 Goals Goal Patient Goal Type Associated Problems Recent Progress Patient-Stated? Author Reminders Care Plan OB Reminders No Open Scheduling, Background Procedures Procedure Name Priority Date/Time Associated Diagnosis Comments POCT URINALYSIS DIPSTICK Routine 07/20/2025 9:27 AM EDT Pelvic pain in female POCT , URINE Routine 07/20/2025 9:26 AM EDT Pelvic pain in female PAP SMEAR Routine 07/06/2023 12:00 AM EDT from Last 3 Months or Most Recently Relevant to Health Maintenance Results * (ABNORMAL) POCT urinalysis dipstick manually resulted (07/20/2025 9:27 AM EDT) Color, UA Straw Clarity, UA Clear Glucose, UA Negative Negative - 1999(110) ++++ mg/dL Bilirubin, UA Negative Negative - 4(70) +++ mg/dL Ketones, UA Negative Negative - 160(16) ++++ mg/dL Spec Grav, UA 1.025 1 - 1.03 Blood, UA Negative Negative - 50 Ervin/mcL pH, UA 6.0 5 - 9 Protein, UA Negative Negative - 1999(20) ++++ mg/dL Urobilinogen, UA 1.0 0.2 - 12 mg/dL Leukocytes, UA Positive Negative - 500+++ Cathi/mcL Nitrite, UA Negative Negative - Positive Urine 07/20/2025 9:27 AM EDT Cherie Callahan NP POINT OF CARE TEST ENTER/EDIT ORDERABLES Final Result * POCT , urine manually resulted (07/20/2025 9:26 AM EDT) Preg Test, Ur Negative Negative Urine 07/20/2025 9:26 AM EDT us Cherie Callahan NP POINT OF CARE TEST ENTER/EDIT ORDERABLES Final Result * Pap Smear (07/06/2023 12:00 AM EDT) Swab Cervical swab / Unknown us Power Cutler DO LAB CYTOLOGY ORDERABLES Final Re sult EXTERNAL LAB from Last 3 Months or Most Recently Relevant to Health Maintenance Additional Health Concerns Active Problems Noted Date Diagnosed Date OB Reminders 12/09/2023 Insurance [facility]
--- OUTSIDE RECORDS SUMMARY | 2025-07-20 14:42 | XMS_ITS | Encounter Summary ---
Author Organization [facility] Address [address] [place] [address] Care Team Providers Care Program Control Analyst Name Role Phone Unavailable Primary Care Provider Unavailabl e Encounter Details Date Type Department Care Team (Late Contact Info) Description 04/18/2024 Abstract NOMSonja TORRES [address] [facility] [address] Teagan Mello LPN 102 [facility] [place] [address] Social History Tobacco Use Types Packs/Day Years [...] 2:20 PM EDT Consult NOMSonja TORRES [address] [facility] [place] [address] Power Cutler DO [address] [facility] [place] [address] documented as of this encounter Goals Goal Patient Goal Type Associated Problems Recent Progress Patient-Stated? Author Reminders Care Plan OB Reminders No Open Scheduling, Background documented as of this encounter Visit Diagnoses Not on filedocumented in this encounter Additional Health Concerns Active Problems Noted Date Diagnosed Date OB Reminders 12/09/2023 documented as of this encounter
--- OUTSIDE RECORDS SUMMARY | 2025-07-20 14:42 | XMS_ITS | Encounter Summary ---
Author Organization [facility] Address [address] [place] [address] Care Team Providers Care Workforce Planning Analyst Name Role Phone Unavailable Primary Care Provider Unavailabl e Encounter Details Date Type Department Care Team (Late st Contact Info) Description 05/04/2024 Clinisync Result Encounter NOMS External Department Unsolicited Gonzales Cutler DO [address], [facility]11 Social History Tobacco Use Types Packs/Day [...] Consult NOMSonja Liao OBGYN [address] [place] [phone] Gonzales Cutler DO [address] [place] [address] documented as of this encounter Goals Goal Patient Goal Type Associated Problems Recent Progress Patient-Stated? Author Reminders Care Plan OB Reminders No Open Scheduling, Background documented as of this encounter Procedures Procedure Name Priority Date/Time Associated Diagnosis Comments US OB BPP W NON-STRESS 05/04/2024 6:53 AM EDT documented in this encounter Results * US OB BPP W NON-STRESS (05/04/2024 6:53 AM EDT) Anatomical Region Laterality Modality Other 05/04/2024 6:53 AM EDT Narrative 05/04/2024 6:55 [place] [address] Ultrasound Report Signed Patient: ZARA ROBISON MR#: [id number] : 1995 Acct:[id number] Age/Sex: 28 / F ADM Date: 05/03/24 Loc: US Attending Dr: Gonzales Cutler D.O. Ordering Physician: Gonzales Cutler D.O. Date of Service: 05/03/24 Procedure(s): US OB BPP w non-stress Accession Number(s): [id number] cc: Gonzales Cutler D.O.; Physician,Non-Staff M.DMegan [address] [address] Patient Name: ZARA ROBISON MRN: [id number] date: 1995 Sex: F Assigned Patient Location: US Current Patient Location: LAB Accession/Order Number: [id number] Exam Date: 05/03/2024 14:48 Report Date: 05/04/2024 06:53 At the request of: GONZALES CUTLER Procedure: US OB BPP w non-stress EXAMINATION: US OB BPP w non-stress HISTORY: Surrogate Z33.3 COMPARISON: No relevant comparison available. TECHNIQUE: Ultrasound biophysical profile was performed in the radiology department. BREATHING MOVEMENTS: 2 GROSS BODY MOVEMENTS: 2 TONE: 2 QUALITATIVE AMNIOTIC FLUID VOLUME: 2 PRESENTATION: Cephalic HEART RATE: 156 bpm. AMNIOTIC FLUID VOLUME: 8.7 cm (deepest pocket 2.7 cm) (5th percentile is 8.3 cm) GESTATIONAL AGE: 33 weeks 1 day CONCLUSION: 1. Total biophysical profile score 8. 2. Borderline oligohydramnios. Electronically authenticated by: DALE VILLANUEVA Date: 05/04/2024 06:53 Dictated By: Dale Villanueva M.D. Signed By: 05/04/24 0655 DD/ TD/TT: Extrusion Supervisor: Procedure Note Radiology, Radiologist, MD - 05/04/2024 [place] [address] Ultrasound Report Signed Patient: ZARA ROBISON NMR#: [id number] : 1995Acct:[id number] Age/Sex: 28 / FADM Date: 05/03/24 Loc: US Attending Dr: Gonzales Cutler D.O. Ordering Physician: Gonzales Cutler D.O. Date of Service: 05/03/24 Procedure(s): US OB BPP w non-stress Accession Number(s): [id number] cc: Gonzales Cutler D.O.; Physician,Non-Staff Theron The [place] [address] Patient Name: ZARA ROBISON MRN: [id number] date: 1995 Sex: F Assigned Patient Location: US Current Patient Location: LAB Accession/Order Number: [id number] Exam Date: 05/03/2024 14:48 Report Date: 05/04/2024 06:53 At the request of: GONZALES CUTLER Procedure: US OB BPP w non-stress EXAMINATION: US OB BPP w non-stress HISTORY: Surrogate Z33.3 COMPARISON: No relevant comparison available. TECHNIQUE: Ultrasound biophysical profile was performed in the radiology department. BREATHING MOVEMENTS: 2 GROSS BODY MOVEMENTS: 2 TONE: 2 QUALITATIVE AMNIOTIC FLUID VOLUME: 2 PRESENTATION: Cephalic HEART RATE: 156 bpm. AMNIOTIC FLUID VOLUME: 8.7 cm (deepest pocket 2.7 cm) (5th percentile is8.3 cm) GESTATIONAL AGE: 33 weeks 1 day CONCLUSION: 1. Total biophysical profile score 8. 2. Borderline oligohydramnios. Electronically authenticated by: DALE VILLANUEVA Date: 05/04/2024 06:53 Dictated By: Dale Villanueva M.D. Signed By:05/04/24 0655 DD/ 0653 TD/TT: Extrusion Supervisor: us Gonzales Cutler DO [facility] Final Result documented in this encounter Visit Diagnoses Not on filedocumented in this encounter Additional Health Concerns Active Problems Noted Date Diagnosed Date OB Reminders 12/09/2023 documented as of this encounter
--- OUTSIDE RECORDS SUMMARY | 2025-07-20 14:42 | XMS_ITS | Encounter Summary ---
Author Organization [facility] Address [address] [place] [address] Care Team Providers Care Tamale Machine Feeder Name Role Phone Unavailable Primary Care Provider Unavailabl e Encounter Details Date Type Department Care Team (Late st Contact Info) Description 05/04/2024 Clinisync Result Encounter [facility] External Department Unsolicited Gonzales Cutler DO [address], [facility]11 Social History Tobacco Use Types Packs/Day Years [...] Consult [facility] [address] [place] [phone] Gonzales Cutler DO [address] [place] [address] documented as of this encounter Goals Goal Patient Goal Type Associated Problems Recent Progress Patient-Stated? Author Reminders Care Plan OB Reminders No Open Scheduling, Background documented as of this encounter Procedures Procedure Name Priority Date/Time Associated Diagnosis Comments US OB GROWTH 05/04/2024 6:58 AM EDT documented in this encounter Results * US OB GROWTH (05/04/2024 6:58 AM EDT) Anatomical Region Laterality Modality Other 05/04/2024 6:58 AM EDT Narrative 05/04/2024 7:00 [place] [address] Ultrasound Report Signed Patient: ZARA ROBISON MR#: [id number] : 1995 Acct:[id number] Age/Sex: 28 / F ADM Date: 05/03/24 Loc: US Attending Dr: Gonzales Cutler D.O. Ordering Physician: Gonzales Cutler D.O. Date of Service: 05/03/24 Procedure(s): US OB growth Accession Number(s): [id number] cc: Gonzales Cutler D.O.; Physician,Non-Staff M.D. [facility] [place] [address] Patient Name: ZARA ROBISON MRN: [id number] date: 1995 Sex: F Assigned Patient Location: US Current Patient Location: US Accession/Order Number: [id number] Exam Date: 05/03/2024 14:48 Report Date: 05/04/2024 06:58 At the request of: GONZALES CUTLER Procedure: US OB growth EXAMINATION: US OB growth HISTORY: Surrogate Z33.3 COMPARISON: Ultrasound OB growth 04/04/2024 FINDINGS: Heart Rate: 156 bpm Number: One Position: Cephalic Amniotic Fluid Volume: 8.7 cm (5th percentiles 8.3 cm) Maximum Vertical Pocket: 2.7 cm BIOMETRY: BPD: 7.9 cm, 31 weeks 4 days, 7.1% HC: 29.9cm; 33 weeks 1 day; 14% AC: 27.0 cm; 31 weeks 1 day; 6% FL: 6.1 cm; 31 weeks 6 days; 11% EFW: 8% FL/AC: 22.7 FL/BPD: 78.2 HC/AC: 1.1 GESTATIONAL AGE: Age by EDC: 33 weeks 1 day IBRAHIMA by EDC: 06/20/2024 Age by US: 32 weeks 0 days IBRAHIMA by US: 06/28/2024 US/US OB growth IMPRESSION: 1. Single live intrauterine with growth detailed above. 2. Amniotic fluid approaches oligohydramnios. 3. Abdominal circumference is at 6th percentile. Electronically authenticated by: DALE VILLANUEVA Date: 05/04/2024 06:58 Dictated By: Dale Villanueva M.D. Signed By: 05/04/24 0700 DD/ 0658 TD/TT: Credit Collector: Procedure Note Radiology, Radiologist, MD - 05/04/2024 [place] [address] Ultrasound Report Signed Patient: ZARA ROBISON NMR#: [id number] : 1995Acct:[id number] Age/Sex: 28 / FADM Date: 05/03/24 Loc: US Attending Dr: Gonzales Cutler D.O. Ordering Physician: Gonzales Cutler D.O. Date of Service: 05/03/24 Procedure(s): US OB growth Accession Number(s): [id number] cc: Gonzales Cutler D.O.; Physician,Non-Staff [place]on [facility] [place] [address] Patient Name: ZARA ROBISON MRN: [facility]:[id number] date: 1995 Sex: F Assigned Patient Location: US Current Patient Location: US Accession/Order Number: [id number] Exam Date: 05/03/2024 14:48 Report Date: 05/04/2024 06:58 At the request of: GONZALES CUTLER Procedure: US OB growth EXAMINATION: US OB growth HISTORY: Surrogate Z33.3 COMPARISON: Ultrasound OB growth 04/04/2024 FINDINGS: Heart Rate: 156 bpm Number: One Position: Cephalic Amniotic Fluid Volume: 8.7 cm (5th percentiles 8.3 cm) Maximum Vertical Pocket: 2.7 cm BIOMETRY: BPD: 7.9 cm, 31 weeks 4 days, 7.1% HC: 29.9cm; 33 weeks 1 day; 14% AC: 27.0 cm; 31 weeks 1 day; 6% FL: 6.1 cm; 31 weeks 6 days; 11% EFW: 8% FL/AC: 22.7 FL/BPD: 78.2 HC/AC: 1.1 GESTATIONAL AGE: Age by EDC: 33 weeks 1 day IBRAHIMA by EDC: 06/20/2024 Age by US: 32 weeks 0 days IBRAHIMA by US: 06/28/2024 US/US OB growth IMPRESSION: 1. Single live intrauterine with growth detailed above. 2. Amniotic fluid approaches oligohydramnios. 3. Abdominal circumference is at 6th percentile. Electronically authenticated by: DALE VILLANUEVA Date: 05/04/2024 06:58 Dictated By: Dale Villanueva M.D. Signed By:05/04/24 0700 DD/ 0658 TD/TT: Credit Collector: [facility] Final Result documented in this encounter Visit Diagnoses Not on filedocumented in this encounter Additional Health Concerns Active Problems Noted Date Diagnosed Date OB Reminders 12/09/2023 documented as of this encounter
--- OUTSIDE RECORDS SUMMARY | 2025-07-20 14:42 | XMS_ITS | Encounter Summary ---
Author Organization [facility] Address [address] [place] [address] Care Team Providers Care Property Disposal Officer Name Role Phone Unavailable Primary Care Provider Unavailabl e Encounter Details Date Type Department Care Team (Late st Contact Info) Description 04/04/2024 Clinisync Result Encounter [facility] External Department Unsolicited Gonzales Cutler DO [address], [facility]11 Social History Tobacco Use Types Packs/Day [...] Consult [facility] [address] [place] [phone] Gonzales Cutler DO [address] [place] [address] documented as of this encounter Goals Goal Patient Goal Type Associated Problems Recent Progress Patient-Stated? Author Reminders Care Plan OB Reminders No Open Scheduling, Background documented as of this encounter Procedures Procedure Name Priority Date/Time Associated Diagnosis Comments US OB GROWTH 04/04/2024 12:24 PM EDT documented in this encounter Results * US OB GROWTH (04/04/2024 12:24 PM EDT) Anatomical Region Laterality Modality Other 04/04/2024 12:2 4 PM EDT Narrative 04/04/2024 12:27 [place] [address] Ultrasound Report Signed Patient: ZARA ROBISON MR#: [id number] : 1995 Acct:[id number] Age/Sex: 28 / F ADM Date: 04/04/24 Loc: US Attending Dr: Gonzales Cutler D.O. Ordering Physician: Gonzales Cutler D.O. Date of Service: 04/04/24 Procedure(s): US OB growth Accession Number(s): [id number] cc: Gonzales Cutler D.O.; Physician,Non-Staff M.D. [facility] [place] [address] Patient Name: ZARA ROBISON MRN: [id number] date: 1995 Sex: F Assigned Patient Location: Current Patient Location: US Accession/Order Number: [id number] Exam Date: 04/04/2024 11:04 Report Date: 04/04/2024 12:24 At the request of: GONZALSE CUTLER Procedure: US OB growth EXAMINATION: US OB growth HISTORY: Surrogate Z33.3 COMPARISON: No relevant comparison available. FINDINGS: Heart Rate: 150.0 bpm Number: 1.0 Position: CEPHALIC Amniotic Fluid Volume: 12.2 cm Maximum Vertical Pocket: 4.8 cm BIOMETRY: BPD: 7.1 cm cm; 28 weeks 2 days; 18% HC: 27.1 cmcm; 29 weeks 4 days ; 31% AC: 24.3 cm cm; 28 weeks 4 days; 29% FL: 5.4 cm cm; 28 weeks 5 days; 28% EFW: 1267.5 grams; 26% FL/AC: 22.4 FL/BPD: 77.2 HC/AC: 1.1 OTHER: Small venous lopez noted within the placenta. GESTATIONAL AGE: Age by EDC: 29 weeks 0 days IBRAHIMA by EDC: 06/20/2024 Age by US: 20 weeks 6 days IBRAHIMA by US: 06/21/2024 US/US OB growth IMPRESSION: 1. Single live intrauterine with growth detailed above. Electronically authenticated by: DALE VILLANUEVA Date: 04/04/2024 12:24 Dictated By: Dale Villanueva M.D. Signed By: 04/04/24 1227 DD/ 1224 TD/TT: Staple Side Laster: Procedure Note Radiology, Radiologist, MD - 04/04/2024 [place] [address] Ultrasound Report Signed Patient: ZARA ROBISON NMR#: [id number] : 1995Acct:[id number] Age/Sex: 28 / FADM Date: 04/04/24 Loc: US Attending Dr: Gonzales Cutler D.O. Ordering Physician: Gonzales Cutler D.O. Date of Service: 04/04/24 Procedure(s): US OB growth Accession Number(s): [id number] cc: Gonzales Cutler D.O.; Physician,Non-Staff Theron [facility] [place] [address] Patient Name: ZARA ROBISON MRN: [id number] date: 1995 Sex: F Assigned Patient Location: US Current Patient Location: US Accession/Order Number: [id number] Exam Date: 04/04/2024 11:04 Report Date: 04/04/2024 12:24 At the request of: GONZALES CUTLER Procedure: US OB growth EXAMINATION: US OB growth HISTORY: Surrogate Z33.3 COMPARISON: No relevant comparison available. FINDINGS: Heart Rate: 150.0 bpm Number: 1.0 Position: CEPHALIC Amniotic Fluid Volume: 12.2 cm Maximum Vertical Pocket: 4.8 cm BIOMETRY: BPD: 7.1 cm cm; 28 weeks 2 days; 18% HC: 27.1 cmcm; 29 weeks 4 days ; 31% AC: 24.3 cm cm; 28 weeks 4 days; 29% FL: 5.4 cm cm; 28 weeks 5 days; 28% EFW: 1267.5 grams; 26% FL/AC: 22.4 FL/BPD: 77.2 HC/AC: 1.1 OTHER: Small venous lopez noted within the placenta. GESTATIONAL AGE: Age by EDC: 29 weeks 0 days IBRAHIMA by EDC: 06/20/2024 Age by US: 20 weeks 6 days IBRAHIMA by US: 06/21/2024 US/US OB growth IMPRESSION: 1. Single live intrauterine with growth detailed above. Electronically authenticated by: DALE VILLANUEVA Date: 04/04/2024 12:24 Dictated By: Dale Villanueva M.D. Signed By:04/04/24 1227 DD/ 1224 TD/TT: Staple Side Laster: us Gonzales Omayra DO [facility] Final Result documented in this encounter Visit Diagnoses Not on filedocumented in this encounter Additional Health Concerns Active Problems Noted Date Diagnosed Date OB Reminders 12/09/2023 documented as of this encounter
--- OUTSIDE RECORDS SUMMARY | 2025-07-20 14:42 | XMS_ITS | Encounter Summary ---
Author Organization [facility] Address [address] [place] [address] Care Team Providers Care Journalism Internship Name Role Phone Unavailable Primary Care Provider Unavailabl e Encounter Details Date Type Department Care Team (Latest Contact Info) Description 07/19/2025 Travel Social History Tobacco Use Types Packs/Day Years Used Date Smoking Tobacco: Never Comments No Sex and Gender Information Value Date Recorded Sex Assigned at Female 05/08/2023 11:20 AM EDT Legal Sex Female 11:47 PM EDT Gender Identity Female 05/08/2023 11:20 AM EDT Sexual Orientation Straight 05/08/2023 11 :20 AM EDT documented as of this encounter Plan of Treatment Upcoming Encounters Date Type Department Care Team (Late st Contact Info) Description 08/01/2025 2:20 PM EDT Consult [facility] [address] [place] [phone] Power Cutler DO [address], [facility]11 documented as of this encounter Goals Goal Patient Goal Type Associated Problems Recent Progress Patient-Stated? Author Reminders Care Plan OB Reminders No Open Scheduling, Background documented as of this encounter Visit Diagnoses Not on filedocumented in this encounter Additional Health Concerns Active Problems Noted Date Diagnosed Date OB Reminders 12/09/2023 documented as of this encounter
--- OUTSIDE RECORDS SUMMARY | 2025-07-20 14:59 | XMS_ITS | CCD ---
Author Organization [facility] CliniSymo Care Team Providers Care Senior Stack Engineer Name Role Phone TARAS, DR EARLY [...] Attending Unavailable OMAYRAGONZALES ABBASI Attending Unavailable OMAYRAGONZALES Attending Unavailable OMAYRAGONZALES ABBASI Attending Unavailable GONZALES CUTLER Attending Unavailable ALEXIS ORTIZ Attending Unavailable GONZALES CUTLER Attending Unavailable HMAMAD SUTTON A Admitting Unavailable HAMMAD SUTTON A Attending Unavailable HAMMAD SUTTON A Attending Unavailable HERMAN, YUN CUEVA A Attending Unavailaleksandra e HERMAN, YUN HAMMAD A Admitting Unavailabl e Deborah Deutsch Attending Unavailable HAMMAD SUTTON A Admitting Unavailable HAMMAD SUTTON A Attending Unavailable HAMMAD SUTTON A Attending Unavailable Allergies Allergy Classification Reported Allergen(s) Allergy Type Date of Onset Reaction(s) Facility (3 sources) Penicillin; Translations: [penicillin] Drug Allergy [facility] Repository (3 sources) No Known Medication Allergies; Translations: [No Known Medication Allergies] Propensity to adverse reactions (disorder) [facility] Rep[facility] Medications Current Medications Medication Drug Class(es) Dates Sig (Normalized) Sig (Original) [id number] 200 actuat albuterol 0.09 mg/actuat metered dose inhaler (4 sources) beta2-Adrenergic Agonist take 2 puff(s) by inhalation every six hours albuterol HFA 90 mcg/act inhaler Inhale 2 puffs every 6 (six) hours if needed Active doxycycline hyclate 100 mg oral capsule (1 source) Tetracycline-cla ss Drug Start: 07-20-2025 End: 07-27-2025 doxycycline (Vibramycin) 100 MG capsule Indications: Cervicitis and endocervicitis Take 1 capsule (100 mg) by mouth in the morning and 1 capsule (100 mg) before bedtime. Do all this for 7 days. Take with at least 8 ounces (large glass) of water, do not lie down for 30 minutes after. 14 capsule 07/20/2025 07/27/2025 Active ethinyl estradiol 0.035 mg / norgestimate 0.25 mg oral tablet (2 sources) Progestin, Estrogen Start: 06-21-2025 End: 07-20-2025 take 1 tablet by mouth once daily, then take 1 tablet by mouth once daily norgestimate-ethiny l estradiol (Sprintec 28) 0.25-35 MG-MCG tablet Indications: Encounter for initial prescription of contraceptive pills Take 1 tablet by mouth Daily for 28 days Take 1 tablet by mouth daily 28 tablet 11 06/21/2025 07/20/2025 Discontinued loratadine 10 mg disintegrating oral tablet (1 source) take 1 tablet by mouth in the morning loratadine (Claritin Reditabs) 10 MG disintegrating tablet Take 10 mg by mouth in the morning. 0 Active 12 hr loratadine 5 mg / pseudoephedrine sulfate 120 mg extended release oral tablet (4 sources) alpha-Adrenergic Agonist loratadine-pseudoep hedrine ER (Alavert Allergy/Sinus) 5-120 MG 12 hr tablet every 12 (twelve) hours Active omeprazole 20 mg delayed release oral capsule (4 sources) Proton Pump Inhibitor Start: 03-28-2024 End: 03-28-2025 take 1 capsule by mouth before mealtime omeprazole (PriLOSEC) [address] capsule Indications: Third trimester ([facility]) Take 1 capsule (20 mg) by mouth in the morning. Take before meals. Do not crush or chew.. 30 capsule 11 03/28/2024 Active ondansetron 4 mg oral tablet (7 sources) Serotonin-3 Receptor Antagonist Start: 12-23-2024 End: 07-20-2025 take 1 tablet by mouth every six hours as needed for nausea ondansetron (Zofran) 4 MG tablet Indications: Nausea and vomiting, unspecified vomiting type TAKE 1 TABLET BY MOUTH EVERY 6 HOURS NEEDED FOR NAUSEA OR VOMITING FOR UP TO 14 DAYS 56 tablet 12/23/2024 07/20/2025 Discontinued Start: 03-24-2024 ondansetron OD T (Zofran-ODT) 4 MG disintegrating tablet Indications: Nausea DISSOLVE 1 TABLET ON TONGUE EVERY 6 HOURS NEEDED FOR NAUSEA OR VOMITING 30 tablet 2 03/24/2024 Active Start: 12-09-2023 End: 01-08-2024 take 1 tablet by mouth every six hours as needed for nausea and vomiting and nausea and nausea ondansetron ODT (Zofran-ODT) 4 MG disintegrating tablet Indications: Nausea Take 1 tablet (4 mg) by mouth every 6 (six) hours if needed for nausea or vomiting 30 tablet 2 12/09/2023 01/08/2024 Active Drxmkivb-Cvn-Cv-FA ( 1 + IRON PO) (5 sources) End: 07-20-2025 Lavqacej-Scb-Hk-FA ( 1 + IRON PO) Take 1 each by mouth in the morning. 07/20/2025 Discontinued Multivi t-Min-Fe-FA ( 1 + IRON PO) Take 1 each by mouth in the morning. Active Multivi t-Min-Fe-FA ( 1 + IRON PO) Take 1 each by mouth in the morning. 0 Active Problems Active Problems Problem Classification Problem Date Documented Date Episodic/Chronic Abdominal pain (5 sources) Pelvic and perineal pain; Translations: [Pain in female pelvis] Onset: 11-05-2022 Episodic Congestive heart failure; nonhypertensive [...] HEART DISEASE W/HEART FAIL] Onset: 02-05-2022 Chronic Immunizations and screening for infectious disease (2 sources) Encounter for screening for human papillomavirus (HPV); Translations: [Exposure to sexually transmissible disorder] Onset: 05-22-2022 07-20-2025 Episodic Inflammatory diseases of female pelvic organs (1 source) Cervicitis and endocervicitis; Translations: [Inflammatory disease of cervix uteri] 07-20-2025 Episodic Malaise and fatigue (1 source) Other fatigue; Translations: [OTHER FATIGUE] Onset: 11-07-2022 Episodic Other endocrine disorders (1 source) Disorder of endocrine system; Translations: [Endocrine disorder, unspecified] 07-20-2025 Episodic Other female genital disorders (4 sources) Other specified noninflammatory disorders of vagina; Translations: [OTH SPEC NONINFLAMMATORY D/O VAGINA] Onset: 11-04-2022 Episodic Other female genital disorders (1 source) Vaginal discharge; Translations: [Other specified noninflammatory disorders of vagina] 07-20-2025 Episodic Other upper respiratory infections (5 sources) Acute sinusitis, unspecified; Translations: [ACUTE SINUSITIS UNSPECIFIED] Onset: 01-15-2022 Episodic Unclassified (3 sources) CONTACT W/AND (SUSP) EXPOS COVID-19; Translations: [CONTACT W/AND (SUSP) EXPOS COVID-19] Onset: 01-15-2022 Unclassified (5 sources) OB Reminders Onset: 12-09-2023 12-09-2023 Viral infection (1 source) COVID-19; Translations: [COVID-19] Onset: 06-05-2022 Past or Other Problems Problem Classification Problem Date Documented Da te Episodic/Chronic Other circulatory disease (4 sources) Orthostatic hypotension; Translations: [ORTHOSTATIC HYPOTENSION] Onset: 02-01-2022 Episodic Other connective tissue disease (3 sources) Pain in right foot; Translations: [PAIN IN RIGHT FOOT] Onset: 03-27-2022 Episodic Other female genital disorders (2 sources) Disorder of vulva; Translations: [Other specified conditions associated with female genital organs and menstrual cycle] 07-13-2024 Episodic Other and delivery including normal (7 sources) Surrogate ; Translations: [ state, gestational carrier] [...] Test Name Value Interpretation Reference Range Facility HCG ( test) Ql (U)o n 07-20-2025 Interpretation and review of laboratory results Normal [facility] Preg Test, Ur Negative Negative [facility] Urinalysis macro (dipstick) panel (U)on 07-20-2025 Bilirubin, UA Negative Negative - 4(70) +++ mg/dL [facility] Blood, UA Negative Negative - 50 Ervin/mcL [facility] Clarity, UA Clear [facility] Color, UA Straw [facility] Glucose, UA Negative Negative - 1999(110) ++++ mg/dL [facility] Interpretation and review of laboratory results Abnormal [facility] Ketones, UA Negative Negative - 160(16) ++++ mg/dL [facility] Leukocytes, UA Positive Negative - 500+++ Cathi/mcL [facility] Nitrite, UA Negative Negative - Positive [facility] pH, UA 6 5 - 9 [facility] Protein, UA Negative Negative - 1999(20) ++++ mg/dL [facility] Spec Grav, UA 1.025 1 - 1.03 [facility] Urobilinogen, UA 1.0 0.2 - 12 mg/dL [facility] Ambulatory Visit Summaryon 0 02-22-2025 Ambulatory Visit Summary Ambulatory Visit Summary ZARA GAO Trae :1995 Visit Date:02/22/2025 Ambulatory Visit Instructions Your Diagnosis Well adult exam Blood in stool Constipation Coccyx pain Non-smoker BMI 23.0-23.9, adult Your Care Team Attending Physician - HAMMAD SUTTON CNP Primary Care Physician - HAMMAD SUTTON CNP This Is Your Medications List albuterol (albuterol 90 mcg/inh inhalation powder) doxycycline (doxycycline hyclate 100 mg Tab) ondansetron (ondansetron 4 mg Tab) Procedures Performed EGD - Esophagogastroduoden oscopy, Tonsillectomy. Discharge Vitals Temperature (Oral) 36.3 ???C Heart Rate (Peripheral) 88 Respiratory Rate 20 Blood Pressure 124/84 Height 159.0 cm Height 63 in Weight 59.2 kg Weight 130.514 lb BMI 23.42 What to do next You Need to Complete the Following XR Sacrum and Coccyx Min 2 Views, 02/22/25, Routine, Order for future visit, Transport Mode: Ambulatory, Reason: Pain, Non Traumatic, No, Blood in stool Coccyx pain, pp_set_radiology_sub specialty, Irvin - Michael Medications What How Much When Instructions Unchanged albuterol (albuterol 90 mcg/ inh inhalation powder) 1.0 Inhaler(s) Inhalation Every 6 hours Unchanged doxycycline (doxycycline hyclate 100 mg Tab) 30 Tablets By Mouth Once a day (in the evening) Unchanged ondansetron (ondansetron 4 mg Tab) 56 Tablets By Mouth Every 6 hours Allergies No Known Allergies No Known Medication Allergies Problems Ongoing - Any problem that you are currently receiving treatment for. Anxiety disorder Asthma BMI 24.0-24.9, adult BMI 26.0-26.9,adult Changing nevus IBS (irritable bowel syndrome) Neoplasm of uncertain behavior of skin Nonsmoker Orthostatic hypotension Scoliosis Patient Survey You may receive a survey via text or e-mail asking about your office visit. Please share your experience with us by completing your survey. We appreciate your feedback and thank you for choosing us for your care. Normal [facility] CBC w/ Auto Diffon 5 Basophils/100 WBC (Bld) 0.7 % Normal 0.0-2.0 [facility] Comment on above: Performed By: #### 2 [id number] #### [facility] [address] [place] [address] Basophils/Leukocytes Auto (Bld) [Pure # fraction] 0.0 E9/L Normal 0.0-0.2 [facility] Comment on above: Performed By: #### 2 [id number] #### [facility] [address] [place] [address] Eosinophils (Bld) [#/Vol] 0.0 E9/L Normal 0.0-0.5 [facility] Comment on above: Performed By: #### 2 [id number] #### [facility] [address] [place] [address] Eosinophils/100 WBC (Bld) 0.6 % Normal 0.0-8.0 [facility] Comment on above: Performed By: #### 2 [id number] #### [facility] [address] [place] [address] Erythrocyte distribution width (RBC) [Ratio] 14.5 % High 10.9-14.2 [facility] Comment on above: Performed By: #### 2 [id number] #### [facility] [address] [place] [address] Hematocrit (Bld) [Volume fraction] 43.2 % Normal 34.0-46.0 [facility] Comment on above: Performed By: #### 2 [id number] #### [facility] [address] [place] [address] Hemoglobin (Bld) [Mass/Vol] 14.7 g/dL Normal 12.0-16.0 [facility] Comment on above: Performed By: #### 2 [id number] #### [facility] [address] [place] [address] Lymphocytes (Bld) [#/Vol] 2.1 E9/L Normal 1.0-4.0 [facility] Comment on above: Performed By: #### 2 [id number] #### [facility] [address] [place] [address] Lymphocytes/100 WBC (Bld) 34.2 % Normal 14.0-50.0 [facility] Comment on above: Performed By: #### 2 [id number] #### [facility] [address] [place] [address] MCH (RBC) [Entitic mass] 30.8 pg Normal 27.0-34.0 [facility] Comment on above: Performed By: #### 2 [id number] #### [facility] [address] [place] [address] MCHC (RBC) [Mass/Vol] 33.9 g/dL Normal 31.4-36.0 [facility] Comment on above: Performed By: #### 2 [id number] #### [facility] [address] [place] [address] MCV (RBC) [Entitic vol] 90.8 fL Normal 80.0-100.0 [facility] Comment on above: Performed By: #### 2 [id number] #### [facility] [address] [place] [address] Monocytes (Bld) [#/Vol] 0.5 E9/L Normal 0.2-1.0 [facility] Comment on above: Performed By: #### 2 [id number] #### [facility] [address] [place] [address] Neutrophils (Bld) [#/Vol] 3.4 E9/L Normal 2.0-7.5 [facility] Comment on above: Performed By: #### 2 [id number] #### [facility] [address] [place] [address] Neutrophils/100 WBC (Bld) 57.0 % Normal 36.0-75.0 [facility] Comment on above: Performed By: #### 2 [id number] #### [facility] [address] [place] [address] Platelet mean volume (Bld) [Entitic vol] 10.2 fL Normal 6.4-10.8 [facility] Comment on above: Performed By: #### 2 [id number] #### [facility] [address] [place] [address] Platelets (Bld) [#/Vol] 185.0 E9/L Normal 150.0-500.0 [facility] Comment on above: Performed By: #### 2 [id number] #### [facility] [address] [place] [address] RBC (Bld) [#/Vol] 4.8 E12/L Normal 4.3-5.9 [facility] Comment on above: Performed By: #### 2 [id number] #### [facility] [address] [place] [address] WBC corrected for nucl RBC Auto (Bld) [#/Vol] 6.0 E9/L Normal 4.0-11.0 [facility] Comment on above: Performed By: #### 2 [id number] #### [facility] [address] [place] [address] CMPon 02-22-2025 Albumin [Mass/Vol] 4.5 g/dL Normal 3.3-5.0 [facility] Comment on above: Performed By: #### 2 [id number] #### [facility] [address] [place] [address] Albumin/Globulin (S) [Mass conc ratio] 1.6 Normal 1.1-2.2 [facility] Comment on above: Performed By: #### 2 [id number] #### [facility] [address] [place] [address] ALP [Catalytic activity/Vol] 48 Int._Unit/L Normal 21-98 [facility] Comment on above: Performed By: #### 2 [id number] #### [facility] [address] [place] [address] ALT No additional P-5'-P [Catalytic activity/Vol] 14 Int._Unit/L Normal 6-46 [facility] Comment on above: Performed By: #### 2 [id number] #### [facility] [address] [place] [address] Anion gap [Moles/Vol] 10 mmol/L Normal 6-16 [facility] Comment on above: Performed By: #### 2 [id number] #### [facility] [address] [place] [address] AST [Catalytic activity/Vol] 17 Int._Unit/L Normal 5-43 [facility] Comment on above: Performed By: #### 2 595663 #### [facility] [address] [place] [address] Bilirubin [Mass/Vol] 0.8 mg/dL Normal 0.0-1.1 [place] Comment on above: Performed By: #### 2 [id number] #### [facility] [address] [place] [address] Calcium [Mass/Vol] 9.1 mg/dL Normal 8.9-11.1 [facility] Comment on above: Performed By: #### 2 477498 #### [facility] [address] [place] [address] Chloride [Moles/Vol] 106 mmol/L Normal 101-111 [place] Comment on above: Performed By: #### 2 017081 #### [facility] [address] [place] [address] CO2 [Moles/Vol] 25 mmol/L Normal 21-31 [facility] Comment on above: Performed By: #### 2 [id number] #### [facility] [address] [place] [address] Creatinine [Mass/Vol] 0.7 mg/dL Normal 0.5-1.3 [facility] Comment on above: Performed By: #### 2 637302 #### [facility] [address] [place] [address] Globulin (S) [Mass/Vol] 2.9 g/dL Normal 1.4-4.0 [facility] Comment on above: Performed By: #### 2 024165 #### [facility] [address] [place] [address] Glucose [Mass/Vol] 86 mg/dL Normal 55-199 [facility] Comment on above: Performed By: #### 2 254039 #### [facility] [address] [place] [address] Potassium [Moles/Vol] 4.5 mmol/L Normal 3.5-5.3 [facility] Comment on above: Performed By: #### 2 463232 #### [facility] [address] [place] [address] Protein [Mass/Vol] 7.4 g/dL Normal 6.0-7.8 [facility] Comment on above: Performed By: #### 2 [id number] #### [facility] [address] [place] [address] Sodium [Moles/Vol] 136 mmol/L Normal 135-145 [facility] Comment on above: Performed By: #### 2 214661 #### [facility] [address] [place] [address] Urea nitrogen [Mass/Vol] 12 mg/dL Normal 5-21 [facility] Comment on above: Performed By: #### 2 [id number] #### [facility] [address] [place] [address] Urea nitrogen/Creatinine [Mass ratio] 17 No Units Normal 10-20 [facility] Comment on above: Performed By: #### 2 [id number] #### [facility] [address] [place] [address] Family Medicine Office/Clini c Noteon 02-22-2025 Family Medicine Office/Clinic Note Family Medicine Office/Clinic Note Chief Complaint The patient reports intermittent bleeding during defecation and coccyx pain worsening post-. HPI Staff Zara is a 29 year old female presenting with Health Maintenance: Colonoscopy: none... but wants a referral for blood in her B'M's. Mammo: None Pap:07/08/2023... Last Labs: NA Questions/concerns; pain on her tailbone, if she sits and stands up, she has pain History of Present Illness 29-year-old female presents for a well visit. She also would like to discuss the blood in her stool and coccyx pain. Bleeding is reported only on the tissue following bowel movements which have become less frequent and are marked by straining. The patient has noted an increase in abdominal firmness and pain during bowel movements, attributing the strain-induced anal tearing to infrequent bowel passage. She describes her stool as hard and pellet like. She denies any diet or activity changes to attribute her symptoms to. She reports she drinks plenty of water. She denies any known presence of external hemorrhoids. She has tried over the counter stool softeners without much relief. She reports her sister does have a history of a bowel issue which she believes to possibly be Crohn's disease. Coccyx pain started in May last year, post the of a surrogate child, exacerbating existing discomfort initially observed with the delivery of her daughter 10 years ago. Pain assessment indicates no neurological deficit except occasional numbness localized to the coccyx. Her pain does not radiate. She reports the pain is constant but is worse upon standing up or adjusting positions. She states the pain can reach a severity of 8/10 at times. She has not tried any treatments for this. Review of Systems PHQ Score Initial Depression Screen Score: 0 SCORE Constitutional: no fever, no chills, no sweats, no weakness Skin: no Jaundice, no rash, no lesions, nopetechiae ENMT: no ear pain, no sore throat, no congestion, no hoarseness Respiratory: no shortness of breath, no cough, no orthopnea, no wheezing Cardiovascular: no chest pain, no palpitations, no edema Gastrointestinal: no nausea, no vomiting, no diarrhea, mild GI bleeding; infrequent bowel movements, generalized abdominal pain, bloating Genitourinary: no dysuria, no hematuria, no discharge, no pain Musculoskeletal: coccyx pain Neurologic: no headache, no dizziness, no numbness, no weakness Psychiatric: no sleeping problems, no irritability, no mood swings/depression. Heme/Lymph: no bleeding tendency, no bruising tendency, no petechiae, no swollen nodes Allergy/Immunologic: no seasonal allergies, no food allergies, no recurrent infections, no impaired immunity Additional ROS info: Except as noted in the above Review of Systems and in the History of Present Illness all other systems have been reviewed and are negative or noncontributory. Physical Exam Vitals & Measurements T: 36.3 ???C(Oral) HR: 88(Peripheral) RR: 20 BP: 124/84 SpO2: 100% HT: 63 in HT: 159.0 cm WT: 130.514 lb WT: 59.2 kg BMI: 23.42 General: alert, no acute distress Skin: warm, dry Head: no trauma, normocephalic Neck: Trachea midline, no adenopathy, no tenderness Eye: normal conjunctiva, sclera clear Cardiovascular: regular rate and rhythm, normal peripheral perfusion Respiratory: Lungs CTA, respirations non labored Chest wall: no deformity. Gastrointestinal: soft, non distended, mild RLQ tenderness, moderate LLQ tenderness, no guarding. Back: Mild coccyx tenderness upon palpation, Normal ROM, Normal alignment. Extremities: no deformity, no trauma Neurological: oriented x 4, LOC appropriate for age, speech normal Psychiatric: cooperative, affect appropriate for age, normal judgement, normal psychiatric thoughts. Assessment/Plan 1. Well adult exam (Z00.00: Encounter for general adult medical examination without abnormal findings) - Follows with gynecology for routine pap smears - Routine labs done - Follow up in 12 months for well exam Ordered: CBC w/ Auto Diff Comprehensive Metabolic Panel Lab Specimen Collect [id number] Lipid Panel TSH With T4fr Reflex 2. Blood in stool (K92.1: Melena) - Recommend MiraLAX as a stool softener to alleviate symptoms linked with straining. - Initiate referral to gastroenterology for detailed evaluation due to family history considerations. - Continue assessing stool softening impact and adjust interventions as necessary. [place] [facility] [place] Ambulatory Referral XR Sacrum and Coccyx Min 2 Views 3. Constipation (K59.00: Constipation, unspecified) - Start MiraLAX - Encouraged to drink at least 64 ounces of water per day Ordered: polyethylene glycol 3350, 17 gm, Oral, Daily, # 10 EA, Refills(s) 1, Pharmacy: [facility] 0298, 159, cm, 02/22/25 7:44:00 EDT, Height/Length Dosing, 59.2, kg, 02/22/25 7:44:00 EDT, Weight Dosing 4. Coccyx pain (M53.3: Sacrococcygeal disorders, not elsewhere classi (more content not included)... Normal [facility] Comment on above: Result Comment: Elec tronically Signed By: HAMMAD SUTTON CNP\.bunny\Date and Time Signed: 02/22/25 09:52 EDT Lipid Panelon 02-22-2025 Cholesterol [Mass/Vol] 128 mg/dL Normal 120-200 [facility] Comment on above: Performed By: #### 2 [id number] #### [facility] [address] [facility] [place] [address] Cholesterol in HDL [Mass/Vol] 50 mg/dL Invalid Interpretation Code [facility] Comment on above: Result Comment: '>= 60 LOW RISK' '<= 40 HIGH RISK' Performed By: #### 2 [id number] #### [facility] [address] [place] [address] Cholesterol in LDL [Mass/Vol] 80 mg/dL Normal <=129 [facility] Comment on above: Performed By: #### 2 [id number] #### [facility] [address] [place] [address] Cholesterol in VLDL [Mass/Vol] 16 mg/dL Normal 7-40 [facility] Comment on above: Performed By: #### 2 [id number] #### [facility] [address] [place] [address] Triglyceride [Mass/Vol] 82 mg/dL Normal <=149 [facility] Comment on above: Performed By: #### 2 [id number] #### [facility] [address] [place] [address] TSH With T4fr Reflexon 02-22 TSH Qn 2.28 m[IU]/L Normal 0.34-5.60 [facility] Comment on above: Performed By: #### 1 [id number] #### [facility] [address] [place] [address] eGFRon 02-22-2025 eGFR 118 mL/min/1.73 m2 Normal >=59 [facility] Comment on above: Performed By: #### 1 [id number] #### [facility] [address] [place] [address] C Urineon 09-08-2024 Bacteria identified Cx Nom (U) Microbiology PROCEDURE: Urine Culture [R1] SOURCE: U Random BODY SITE: COLLECTED DATE/TIME: 09/06/2024 13:28 EDT RECEIVED DATE/TIME: 09/06/2024 18:02 EDT START DATE/TIME: 09/06/2024 18:02 EDT FREE TEXT SOURCE: HAMMAD SUTTON CNP, CNP, HAMMAD Fuller FINAL REPORTS Final Report [] Verified Date/Time: 09/08/2024 11:00 EDT 2,000 cfu/ml Mixed skin contaminants Performing Locations R1: This test was performed at: [facility], [address] [place] [address], [id number] , [facility] Comment on above: Performed By: #### 2 [id number] #### [facility] [address] [place] [address] Ambulatory Visit Summaryon 1 Ambulatory Visit Summary Ambulatory Visit Summary ZARA GAO :1995 Visit Date:09/06/2024 Ambulatory Visit Instructions Your Diagnosis UTI symptoms Encounter to establish care Your Care Team Attending Physician - HERMAN MALCOLM, HAMMAD Fuller Primary Care Physician - Alla Beatty MD Procedures Performed EGD - Esophagogastroduoden oscopy, Tonsillectomy. Discharge Vitals Temperature (Oral) 36.8 ?C Heart Rate (Peripheral) 85 Respiratory Rate 16 Blood Pressure 116/74 Height 159 cm Height 63 in Weight 63 kg Weight 138.6 lb BMI 24.92 Allergies No Known Allergies No Known Medication Allergies Problems Ongoing - Any problem that you are currently receiving treatment for. Anxiety disorder Asthma BMI 26.0-26.9,adult Changing nevus IBS (irritable bowel syndrome) Neoplasm of uncertain behavior of skin Orthostatic hypotension Scoliosis Patient Survey You may receive a survey via text or e-mail asking about your office visit. Please share your experience with us by completing your survey. We appreciate your feedback and thank you for choosing us for your care. Normal [facility] Family Medicine Office/Clini c Noteon 09-06-2024 Family Medicine Office/Clinic Note Family Medicine Office/Clinic Note Chief Complaint Establish Care *possible UTI HPI Staff Pt presents today to establish care. Establish Care: History: Any previous diagnosis: asthma History of seeing any specialist: Gen Surg-Mole removal When was your last doctors visit: 05/2023 Last provider: Wesley Jerez Any recent labs: 2021 Health Maintenance UTD: Colonoscopy: NA Mammogram: NA Pelvic/Pap: 07/08/2023 Acute: Current issues/complaints: Possible UTI. Sx started last Thursday. Frequency. Dysuria. Has been drinking increased fluids. Did take AZO this morning. Does get UTI 1-2x/yr. History of Present Illness 29 year old presents today to establish care and be evaluated for UTI. She reports she was a prior patient of Rebecca Jerez. She reports she has been healthy and was a surrogate and delivered in May. She has concerns for a UTI as she started last week with dysuria, frequency, and hesitancy. She reports she did take AZO today before her appointment. She reports she usually has 1-2 UTI's each year. Review of Systems PHQ Score Initial Depression Screen Score: 0 SCORE Constitutional: no fever, no chills, no sweats, no weakness Skin: no Jaundice, no rash, no lesions, nopetechiae ENMT: no ear pain, no sore throat, no congestion, no hoarseness Respiratory: no shortness of breath, no cough, no orthopnea, no wheezing Cardiovascular: no chest pain, no palpitations, no edema Gastrointestinal: no nausea, no vomiting, no diarrhea, no GI bleeding Genitourinary: no dysuria, no hematuria, no discharge, no pain Musculoskeletal: no back pain, no trauma Neurologic: no headache, no dizziness, no numbness, no weakness Psychiatric: no sleeping problems, no irritability, no mood swings/depression. Heme/Lymph: no bleeding tendency, no bruising tendency, no petechiae, no swollen nodes Allergy/Immunologic: no seasonal allergies, no food allergies, no recurrent infections, no impaired immunity Additional ROS info: Except as noted in the above Review of Systems and in the History of Present Illness all other systems have been reviewed and are negative or noncontributory. Physical Exam Vitals & Measurements T: 36.8 ?C(Oral) HR: 85(Peripheral) RR: 16 BP: 116/74 SpO2: 97% HT: 63 in HT: 159 cm WT: 63 kg WT: 138.6 lb BMI: 24.92 General: alert, no acute distress Skin: warm, dry Head: no trauma, normocephalic Neck: Trachea midline, no adenopathy, no tenderness Eye: normal conjunctiva, sclera clear ENMT: TM's clear, oral mucosa moist, no pharyngeal erythema or exudate Cardiovascular: regular rate and rhythm, normal peripheral perfusion Respiratory: Lungs CTA, respirations non labored Chest wall: no deformity. Gastrointestinal: soft, non distended, no tenderness, no guarding. Back: No tenderness, Normal ROM, Normal alignment. Extremities: no deformity, no trauma Neurological: oriented x 4, LOC appropriate for age, CN II-XII intact, motor strength equal & normal bilaterally, sensation equal & normal bilaterally, speech normal Psychiatric: cooperative, affect appropriate for age, normal judgement, normal psychiatric thoughts. Assessment/Plan 1. UTI symptoms (R39.9: Unspecified symptoms and signs involving the genitourinary system) POC UA- + for nitrites Start ciprofloxacin 500 mg one tablet po BID x 5 days Encourage to increase water to 64 oz daily f/u if no improvement Ordered: ciprofloxacin, 500 mg = 1 tab(s), Oral, q12hr, X 5 day(s), # 10 tab(s), Refills(s) 0, Pharmacy: [facility]/pharmacy #[id number], 159, cm, 09/06/24 13:14:00 EDT, Height/Length Dosing, 63, kg, 09/06/24 13:14:00 EDT, Weight Dosing Urine Culture Urnls Dip Stick Auto w/o Microscopy POC 83693 2. Encounter to establish care (Z76.89: Persons encountering health services in other specified circumstances) Ordered: ciprofloxacin, 500 mg = 1 tab(s), Oral, q12hr, X 5 day(s), # 10 tab(s), Refills(s) 0, Pharmacy: [facility]/pharmacy #[id number], 159, cm, 09/06/24 13:14:00 EDT, Height/Length Dosing, 63, kg, 09/06/24 13:14:00 EDT, Weight Dosing 3. BMI 24.0-24.9, adult (Z68.24: Body mass index [BMI] 24.0-24.9, adult) Monitor weight at each visit Encourage portion control and daily exercise Ordered: ciprofloxacin, 500 mg = 1 tab(s), Oral, q12hr, X 5 day(s), # 10 tab(s), Refills(s) 0, Pharmacy: [facility]/pharmacy #[id number], 159, cm, 09/06/24 13:14:00 EDT, Height/Length Dosing, 63, kg, 09/06/24 13:14:00 EDT, Weight Dosing 4. Nonsmoker (Z78.9: Other specified health status) Encouraged to continue as a non-smoker Ordered: ciprofloxacin, 500 mg = 1 tab(s), Oral, q12hr, X 5 day(s), # 10 tab(s), Refills(s) 0, Pharmacy: [facility]/pharmacy #[id number], 159, cm, 09/06/24 13:14:00 EDT, Height/Length Dosing, 63, kg, 09/06/24 13:14:00 EDT, Weight Dosing Follow-up With When Contact Information HAMMAD SUTTON CNP, PRINCE Within [address] [place] [phone] Business (1) Additional Instructions: Well check Problem List/Past Medical History Ongoing (more content not included)... Normal [facility] Comment on above: Result Comment: Elec tronically Signed By: HAMMAD SUTTON CNP\.br\Date and Time Signed: 09/06/24 14:04 EDT ALL CBC WITH AUTO DIFFon BASOPHILS ABSOLUTE AUTO 0.0 [facility] Basophils/100 WBC (Bld) 0.3 % 0.2 - 2.0 % [facility] Eosinophils/100 WBC (Bld) 0.6 % Low 0.9 - 7.0 % [facility] Erythrocyte distribution width (RBC) [Ratio] 13.3 % 11.0 - 15.0 % [facility] Hematocrit (Bld) [Volume fraction] 36.6 % 36.0 - 48.0 % [facility] Hemoglobin (Bld) [Mass/Vol] 12.2 g/dL 12.0 - 16.0 g/dL [facility] IMMATURE GRANULOCYTES ABS AUTO 0.04 High [facility] Immature granulocytes/100 WBC (Bld) 0.5 % 0.0 - 0.5 % [facility] Interpretation and review of laboratory results Abnormal [facility] LYMPHOCYTES ABSOLUTE AUTO 2.0 [facility] Lymphocytes/100 WBC (Bld) 23.3 % 20.5 - 60.0 % [facility] MCH (RBC) [Entitic mass] 31.5 pg 26.7 - 34.0 pg [facility] MCHC (RBC) [Mass/Vol] 33.3 g/dL 29.9 - 35.2 g/dL [facility] MCV (RBC) [Entitic vol] 94.6 fL 81.0 - 99.0 fL [facility] MONOCYTES ABSOLUTE AUTO 0.5 [facility] Monocytes/100 WBC (Bld) 6.3 % 1.7 - 12.0 % [facility] NEUTROPHILS ABSOLUTE AUTO 6.0 [facility] Neutrophils/100 WBC (Bld) 69.0 % 43.0 - 75.0 % [facility] Platelet mean volume (Bld) [Entitic vol] 11.3 fL 9.5 - 13.5 fL [facility] EO # 0.1 [facility] PLT 208 [facility] RBC 3.87 Low [facility] TB WBC 8.6 [facility] CHLAMYDIA/GONOCOCCUS BACILIO ( AB/URINE/PAPon 11-07-2022 Chlamydia trachomatis, BACILIO Negative Normal Negative [facility] Comment on above: Performed By: #### L IPID, CMP, T7, BNP, TSH #### [facility] [address] [address] [address] David Das Neisseria gonorrhoeae, BACILIO Negative Normal Negative [facility] Comment on above: Performed By: #### L IPID, CMP, T7, BNP, TSH #### [facility] [address] [address] [address] David Das US PELVIS AND TRANSVAGon [...] 11-06-2022 Angelia species Negative Normal Negative [facility] Comment on above: Performed By: #### V AGINT #### [facility] [address] [address] [address] David Das Gardnerella vaginalis Negative Normal Negative [facility] Comment on above: Performed By: #### V AGINT #### [facility] [address] [address] [address] David Das Trichomonas vaginalis Negative Normal Negative [facility] Comment on above: Performed By: #### V AGINT #### [facility] [address] [address] [address] David Das INSULINon 11-04-2022 Insulin 17.4 uIU/mL Normal 2.6-24.9 [facility] Comment on above: Performed By: #### I NSULIN #### [facility] [address] [place] [address] Dr. David Das CBC AUTO DIFFon 11-03-2022 BASO # 0.0 103/ul Normal 0.0-0.1 [facility] Comment on above: Performed By: #### L IPID, CMP, T7, BNP, TSH #### [facility] [address] [place] [address] Dr. David Das Basophils/100 WBC (Bld) 0.4 % Normal 0.2-2.0 [facility] Comment on above: Performed By: #### L IPID, CMP, T7, BNP, TSH #### [facility] [address] [place] [address] Dr. David Das EO # 0.1 103/ul Normal 0.0-0.7 [facility] Comment on above: Performed By: #### L IPID, CMP, T7, BNP, TSH #### [facility] [address] [place] [address] Dr. David Das Eosinophils/100 WBC (Bld) 1.4 % Normal 0.9-7.0 [facility] Comment on above: Performed By: #### L IPID, CMP, T7, BNP, TSH #### [facility] [address] [place] [address] Dr. David Das Erythrocyte distribution width (RBC) [Ratio] 12.4 % Normal 11.0-15.0 [facility] Comment on above: Performed By: #### L IPID, CMP, T7, BNP, TSH #### [facility] [address] [place] [address] Dr. David Das Hematocrit (Bld) [Volume fraction] 43.8 % Normal 36.0-48.0 [facility] Comment on above: Performed By: #### L IPID, CMP, T7, BNP, TSH #### [facility] [address] [place] [address] Dr. David Das Hemoglobin (Bld) [Mass/Vol] 14.6 g/dL Normal 12.0-16.0 [facility] Comment on above: Performed By: #### L IPID, CMP, T7, BNP, TSH #### [facility] [address] [place] [address] Dr. David Das IG # 0.01 10e3/ul Normal 0.00-0.03 [facility] Comment on above: Performed By: #### L IPID, CMP, T7, BNP, TSH #### [facility] [address] [place] [address] Dr. David Das IG % 0.2 % Normal 0.0-0.5 [facility] Comment on above: Performed By: #### L IPID, CMP, T7, BNP, TSH #### [facility] [address] [place] [address] Dr. David Das LYMPH # 1.8 103/ul Normal 1.2-3.8 [facility] Comment on above: Performed By: #### L IPID, CMP, T7, BNP, TSH #### [facility] [address] [place] [address] Dr. David Das Lymphocytes/100 WBC (Bld) 33.3 % Normal 20.5-60.0 [facility] Comment on above: Performed By: #### L IPID, CMP, T7, BNP, TSH #### [facility] [address] [place] [address] Dr. David Das MANUAL DIFF REQ NO Normal [facility] Comment on above: Performed By: #### L IPID, CMP, T7, BNP, TSH #### [facility] [address] [place] [address] Dr. David Das MCH (RBC) [Entitic mass] 30.7 pg Normal 26.7-34.0 [facility] Comment on above: Performed By: #### L IPID, CMP, T7, BNP, TSH #### [facility] [address] [place] [address] Dr. Davdi Das MCHC (RBC) [Mass/Vol] 33.3 g/dL Normal 29.9-35.2 [facility] Comment on above: Performed By: #### L IPID, CMP, T7, BNP, TSH #### [facility] [address] [place] [address] Dr. David Das MCV (RBC) [Entitic vol] 92.0 fL Normal 81.0-99.0 [facility] Comment on above: Performed By: #### L IPID, CMP, T7, BNP, TSH #### [facility] [address] [place] [address] Dr. David Das MONO # 0.4 103/ul Normal 0.3-0.8 [facility] Comment on above: Performed By: #### L IPID, CMP, T7, BNP, TSH #### [facility] [address] [place] [address] Dr. David Das Monocytes/100 WBC (Bld) 7.6 % Normal 1.7-12.0 [facility] Comment on above: Performed By: #### L IPID, CMP, T7, BNP, TSH #### [facility] [address] [place] [address] Dr. David Das NEUT # 3.2 103/ul Normal 1.4-6.5 [facility] Comment on above: Performed By: #### L IPID, CMP, T7, BNP, TSH #### [facility] [address] [place] [address] Dr. David Das Neutrophils/100 WBC (Bld) 57.1 % Normal 43.0-75.0 [facility] Comment on above: Performed By: #### L IPID, CMP, T7, BNP, TSH #### [facility] [address] [place] [address] Dr. David Das Platelet mean volume (Bld) [Entitic vol] 10.5 fL Normal 9.5-13.5 [facility] Comment on above: Performed By: #### L IPID, CMP, T7, BNP, TSH #### [facility] [address] [place] [address] Dr. David Das PLT 200 103/ul Normal 150-450 [facility] Comment on above: Performed By: #### L IPID, CMP, T7, BNP, TSH #### [facility] [address] [address] [address] David Das RBC 4.76 106/ul Normal 4.20-5.40 [facility] Comment on above: Performed By: #### L IPID, CMP, T7, BNP, TSH #### [facility] [address] [address] [address] David Das WBC 5.5 103/ul Normal 4.0-11.0 [facility] Comment on above: Performed By: #### L IPID, CMP, T7, BNP, TSH #### [facility] [address] [place] [address] Dr. David Das FREE THYROXINE INDEX T7on FTI 2.38 Normal 1.30-4.50 [facility] Comment on above: Performed By: #### L IPID, CMP, T7, BNP, TSH #### [facility] [address] [place] [address] Dr. David Das T3U 33.0 % Normal 30.0-39.0 [facility] Comment on above: Performed By: #### L IPID, CMP, T7, BNP, TSH #### [facility] [address] [place] [address] Dr. David Das T4 [Mass/Vol] 7.20 ug/dL Normal 4.80-13.90 [facility] Comment on above: Performed By: #### L IPID, CMP, T7, BNP, TSH #### [facility] [address] [place] [address] Dr. David Das GLYCOHEMOGLOBIN A1Con 2021 ADA RECOMMENDATION SEE BELOW Normal [facility] Comment on above: Result Comment: ADA RECOMMENDED LIMIT 4.0 - 6.0 ADA THERAPEUTIC TARGET < 7.0 ACTION SUGGESTED > 7.0 Performed By: #### L IPID, CMP, T7, BNP, TSH #### [facility] [address] [place] [address] Dr. David Das Glucose [Mass/Vol] 103 mg/dL Normal [facility] Comment on above: Performed By: #### L IPID, CMP, T7, BNP, TSH #### [facility] [address] [address] [address] David Das HbA1c (Bld) [Mass fraction] 5.2 % Normal 4.5-6.2 [facility] Comment on above: Performed By: #### L IPID, CMP, T7, BNP, TSH #### [facility] [address] [address] [address] David Das IRONon 11-03-2022 Iron [Mass/Vol] 117.0 ug/dL Normal 50.0-170.0 [facility] Comment on above: Performed By: #### L IPID, CMP, T7, BNP, TSH #### [facility] [address] [place] [address] Dr. David Das LIPID PROFILEon 11-03-2022 CHOL-HDL RATIO NORM SEE BELOW Normal [facility] Comment on above: Result Comment: 3.3 - 4.4 LOW RISK 4.4 - 7.1 AVERAGE RISK 7.1 - 11.0 MODERATE RISK >11.0 HIGH RISK Performed By: #### L IPID, CMP, T7, BNP, TSH #### [facility] [address] [address] [address] David Das Cholesterol [Mass/Vol] 120 mg/dL Normal <=200 [facility] Comment on above: Performed By: #### L IPID, CMP, T7, BNP, TSH #### [facility] [address] [address] [address] David Das Cholesterol in HDL [Mass/Vol] 54 mg/dL Normal 40-60 [facility] Comment on above: Performed By: #### L IPID, CMP, T7, BNP, TSH #### [facility] [address] [address] [address] David Das Cholesterol in LDL [Mass/Vol] 56.8 mg/dL Normal [facility] Comment on above: Performed By: #### L IPID, CMP, T7, BNP, TSH #### [facility] [address] [address] [address] David Das Cholesterol.total/Ch olesterol in HDL [Mass ratio] 2.2 {ratio} Normal [facility] Comment on above: Performed By: #### L IPID, CMP, T7, BNP, TSH #### [facility] [address] [address] [address] David Das HDL NORMAL > or = 60 mg/dl - LOW CARDIOVASCULAR RISK <40 mg/dl - HIGH CARDIOVASCULAR RISK Normal [facility] Comment on above: Performed By: #### L IPID, CMP, T7, BNP, TSH #### [facility] [address] [address] [address] David Das LDL CALC NORMAL SEE BELOW Normal [facility] Comment on above: Result Comment: <100 mg/dl OPTIMAL 100 - 129 mg/dl NEAR OR ABOVE OPTIMAL 130 - 159 mg/dl BORDERLINE HIGH 160 - 189 mg/dl HIGH >190 mg/dl VERY HIGH Performed By: #### L IPID, CMP, T7, BNP, TSH #### [facility] [address] [place] [address] Dr. David Das Triglyceride [Mass/Vol] 46 mg/dL Normal <=150 [facility] Comment on above: Performed By: #### L IPID, CMP, T7, BNP, TSH #### [facility] [address] [place] [address] Dr. David Das VLDL CALC 9.2 mg/dL Normal [facility] Comment on above: Performed By: #### L IPID, CMP, T7, BNP, TSH #### [facility] [address] [place] [address] Dr. David Das PROF 14(COMP METB)on 022 Albumin [Mass/Vol] 4.1 g/dL Normal 3.4-5.0 [facility] Comment on above: Performed By: #### L IPID, CMP, T7, BNP, TSH #### [facility] [address] [place] [address] Dr. David Das Albumin/Globulin [Mass ratio] 1.2 {ratio} Normal [facility] Comment on above: Performed By: #### L IPID, CMP, T7, BNP, TSH #### [facility] [address] [place] [address] Dr. David Das ALP [Catalytic activity/Vol] 50 U/L Normal 46-116 [facility] Comment on above: Performed By: #### L IPID, CMP, T7, BNP, TSH #### [facility] [address] [place] [address] Dr. David Das ALT [Catalytic activity/Vol] 15 U/L Normal 14-59 [facility] Comment on above: Performed By: #### L IPID, CMP, T7, BNP, TSH #### [facility] [address] [place] [address] Dr. David Das Anion gap [Moles/Vol] 11.0 mmol/L Normal [facility] Comment on above: Performed By: #### L IPID, CMP, T7, BNP, TSH #### [facility] [address] [place] [address] Dr. David Das AST [Catalytic activity/Vol] 16 U/L Normal 15-37 [facility] Comment on above: Performed By: #### L IPID, CMP, T7, BNP, TSH #### [facility] [address] [place] [address] Dr. David Das Bilirubin [Mass/Vol] 0.5 mg/dL Normal 0.2-1.0 [facility] Comment on above: Performed By: #### L IPID, CMP, T7, BNP, TSH #### [facility] [address] [place] [address] Dr. David Das Calcium [Mass/Vol] 8.7 mg/dL Normal 8.5-10.1 [facility] Comment on above: Performed By: #### L IPID, CMP, T7, BNP, TSH #### [facility] [address] [place] [address] Dr. David Das Chloride [Moles/Vol] 104 mmol/L Normal 98-107 [facility] Comment on above: Performed By: #### L IPID, CMP, T7, BNP, TSH #### [facility] [address] [place] [address] Dr. David Das CO2 [Moles/Vol] 31.4 mmol/L Normal 21.0-32.0 [facility] Comment on above: Performed By: #### L IPID, CMP, T7, BNP, TSH #### [facility] [address] [address] [address] David Das Creatinine [Mass/Vol] 0.64 mg/dL Normal 0.55-1.02 [facility] Comment on above: Performed By: #### L IPID, CMP, T7, BNP, TSH #### [facility] [address] [address] [address] David Das EGFR-AF SRI LANKAN >60 Normal >=60 [facility] Comment on above: Performed By: #### L IPID, CMP, T7, BNP, TSH #### [facility] [address] [address] [address] David Das EGFR-NON AF SRI LANKAN >60 Normal >=60 [facility] Comment on above: Performed By: #### L IPID, CMP, T7, BNP, TSH #### [facility] [address] [address] [address] David Das Globulin (S) [Mass/Vol] 3.4 g/dL Normal [facility] Comment on above: Performed By: #### L IPID, CMP, T7, BNP, TSH #### [facility] [address] [address] [address] David Das Glucose [Mass/Vol] 92 mg/dL Normal 74-106 [facility] Comment on above: Performed By: #### L IPID, CMP, T7, BNP, TSH #### [facility] [address] [address] [address] David Das Potassium [Moles/Vol] 4.4 mmol/L Normal 3.5-5.1 [facility] Comment on above: Performed By: #### L IPID, CMP, T7, BNP, TSH #### [facility] [address] [address] [address] David Das Protein [Mass/Vol] 7.5 g/dL Normal 6.4-8.2 [facility] Comment on above: Performed By: #### L IPID, CMP, T7, BNP, TSH #### [facility] [address] [place] [address] Dr. David Das Sodium [Moles/Vol] 142 mmol/L Normal 136-145 [facility] Comment on above: Performed By: #### L IPID, CMP, T7, BNP, TSH #### [facility] [address] [place] [address] Dr. David Das Urea nitrogen [Mass/Vol] 11.0 mg/dL Normal 7.0-18.0 [facility] Comment on above: Performed By: #### L IPID, CMP, T7, BNP, TSH #### [facility] [address] [place] [address] Dr. David Das Urea nitrogen/Creatinine [Mass ratio] 17.2 mg/mg Normal [facility] Comment on above: Performed By: #### L IPID, CMP, T7, BNP, TSH #### [facility] [address] [place] [address] Dr. David Das TSHon 11-03-2022 TSH 1.923 uIU/mL Normal 0.358-3.740 [facility] Comment on above: Performed By: #### L IPID, CMP, T7, BNP, TSH #### [facility] [address] [place] [address] Dr. David Das [facility] SARS-CoV-2 (COVID-19) RNA BACILIO+probe Ql (Unsp spec) Detected Critically abnormal NOT DETECTED [facility] Comment on above: Result Comment: This test is not yet approved or cleared by the [place] FDA. When there are no FDA-approved or cleared tests available, and other criteria are met, FDA can make tests available under an emergency access mechanism called an Emergency Use Authorization (EUA). The EUA for this test is supported by the [place] of Health and Human Service's declaration that [...] #### C VDTBH #### [facility] [address] [address] [address] David Das PAP ACOG PANEL 2: 21 to 27on 05-23-2022 . . Normal [facility] Comment on above: Performed By: #### L IPID, CMP, T7, BNP, TSH #### [facility] [address] [address] [address] David Das Age Gdln ACOG Testing [facility] Comment on above: Performed By: #### L IPID, CMP, T7, BNP, TSH #### [facility] [address] [place] [address] Dr. David Das DIAGNOSIS: Comment [facility] Comment on above: Result Comment: NEGA TIVE FOR INTRAEPITHELIAL LESION OR MALIGNANCY. Performed By: #### L IPID, CMP, T7, BNP, TSH #### [facility] [address] [place] [address] Dr. David Das Methodology: Comment [facility] Comment on above: Result Comment: This liquid based ThinPrep(R) pap test was screened with the use of an image guided system. Performed By: #### L IPID, CMP, T7, BNP, TSH #### [facility] [address] [place] [address] Dr. David Das Note: Comment [facility] Comment on above: Result Comment: The [...] T7, BNP, TSH #### [facility] [address] [place] [address] Dr. David Das Performed by: Comment [facility] Comment on above: Result Comment: Brid get Jay, Information Systems Professor (ASCP) Performed By: #### L IPID, CMP, T7, BNP, TSH #### [facility] [address] [place] [address] Dr. David Das Reflex Criteria: Comment Normal [facility] Comment on above: Result Comment: The HPV DNA reflex criteria were not met with this specimen result therefore, no HPV testing was performed. . Performed By: #### L IPID, CMP, T7, BNP, TSH #### [facility] [address] [address] [address] David Das Specimen adequacy: Comment Normal [facility] Comment on above: Result Comment: Sati sfactory for evaluation. Endocervical and/or squamous metaplastic cells (endocervical component) are present. Areas of partially obscuring inflammatory exudate are present. Performed By: #### L IPID, CMP, T7, BNP, TSH #### [facility] [address] [address] [address] David Das XR FOOT RT MIN 3 VIEWSon XR FOOT RT MIN 3 VIEWS IMAGES REVIEWED: XR FOOT RT MIN 3 VIEWS COMPARISON: None available. CLINICAL INDICATION: Pain, no injury. FINDINGS/IMPRESSION: Unremarkable radiographic appearance of the right foot. Electronically authenticated by: VIVIEN NOONAN Date: 2022-03-27 20:26 Normal [facility] BNPon 02-01-2022 Natriuretic peptide B (Bld) [Mass/Vol] 64.0 pg/mL Normal <=450.0 [facility] Comment on above: Performed By: #### L IPID, CMP, T7, BNP, TSH #### [facility] [address] [place] [address] Dr. David Das CBC AUTO DIFFon 02-01-2022 BASO # 0.0 103/ul Normal 0.0-0.1 [facility] Comment on above: Performed By: #### L IPID, CMP, T7, BNP, TSH #### [facility] [address] [place] [address] Dr. David Das Basophils/100 WBC (Bld) 0.4 % Normal 0.2-2.0 [facility] Comment on above: Performed By: #### L IPID, CMP, T7, BNP, TSH #### [facility] [address] [place] [address] Dr. David Das EO # 0.1 103/ul Normal 0.0-0.7 [facility] Comment on above: Performed By: #### L IPID, CMP, T7, BNP, TSH #### [facility] [address] [place] [address] Dr. David Das Eosinophils/100 WBC (Bld) 1.8 % Normal 0.9-7.0 [facility] Comment on above: Performed By: #### L IPID, CMP, T7, BNP, TSH #### [facility] [address] [place] [address] Dr. David Das Erythrocyte distribution width (RBC) [Ratio] 12.5 % Normal 11.0-15.0 [facility] Comment on above: Performed By: #### L IPID, CMP, T7, BNP, TSH #### [facility] [address] [place] [address] Dr. David Das Hematocrit (Bld) [Volume fraction] 43.6 % Normal 36.0-48.0 [facility] Comment on above: Performed By: #### L IPID, CMP, T7, BNP, TSH #### [facility] [address] [place] [address] Dr. David Das Hemoglobin (Bld) [Mass/Vol] 14.2 g/dL Normal 12.0-16.0 [facility] Comment on above: Performed By: #### L IPID, CMP, T7, BNP, TSH #### [facility] [address] [place] [address] Dr. David Das IG # 0.01 10e3/ul Normal 0.00-0.03 [facility] Comment on above: Performed By: #### L IPID, CMP, T7, BNP, TSH #### [facility] [address] [place] [address] Dr. David Das IG % 0.2 % Normal 0.0-0.5 [facility] Comment on above: Performed By: #### L IPID, CMP, T7, BNP, TSH #### [facility] [address] [address] [address] David Das LYMPH # 1.8 103/ul Normal 1.2-3.8 [facility] Comment on above: Performed By: #### L IPID, CMP, T7, BNP, TSH #### [facility] [address] [place] [address] Dr. David Das Lymphocytes/100 WBC (Bld) 32.0 % Normal 20.5-60.0 [facility] Comment on above: Performed By: #### L IPID, CMP, T7, BNP, TSH #### [facility] [address] [place] [address] Dr. David Das MANUAL DIFF REQ NO Normal [facility] Comment on above: Performed By: #### L IPID, CMP, T7, BNP, TSH #### [facility] [address] [place] [address] Dr. David Das MCH (RBC) [Entitic mass] 30.8 pg Normal 26.7-34.0 [facility] Comment on above: Performed By: #### L IPID, CMP, T7, BNP, TSH #### [facility] [address] [place] [address] Dr. David Das MCHC (RBC) [Mass/Vol] 32.6 g/dL Normal 29.9-35.2 [facility] Comment on above: Performed By: #### L IPID, CMP, T7, BNP, TSH #### [facility] [address] [place] [address] Dr. David Das MCV (RBC) [Entitic vol] 94.6 fL Normal 81.0-99.0 [facility] Comment on above: Performed By: #### L IPID, CMP, T7, BNP, TSH #### [facility] [address] [place] [address] Dr. David Das MONO # 0.4 103/ul Normal 0.3-0.8 [facility] Comment on above: Performed By: #### L IPID, CMP, T7, BNP, TSH #### [facility] [address] [place] [address] Dr. David Das Monocytes/100 WBC (Bld) 6.5 % Normal 1.7-12.0 [facility] Comment on above: Performed By: #### L IPID, CMP, T7, BNP, TSH #### [facility] [address] [place] [address] Dr. David Das NEUT # 3.3 103/ul Normal 1.4-6.5 [facility] Comment on above: Performed By: #### L IPID, CMP, T7, BNP, TSH #### [facility] [address] [place] [address] Dr. David Das Neutrophils/100 WBC (Bld) 59.1 % Normal 43.0-75.0 [facility] Comment on above: Performed By: #### L IPID, CMP, T7, BNP, TSH #### [facility] [address] [place] [address] Dr. David Das Platelet mean volume (Bld) [Entitic vol] 10.5 fL Normal 9.5-13.5 [facility] Comment on above: Performed By: #### L IPID, CMP, T7, BNP, TSH #### [facility] [address] [place] [address] Dr. David Das PLT 195 103/ul Normal 150-450 [facility] Comment on above: Performed By: #### L IPID, CMP, T7, BNP, TSH #### [facility] [address] [place] [address] Dr. David Das RBC 4.61 106/ul Normal 4.20-5.40 [facility] Comment on above: Performed By: #### L IPID, CMP, T7, BNP, TSH #### [facility] [address] [place] [address] Dr. David Das WBC 5.7 103/ul Normal 4.0-11.0 [facility] Comment on above: Performed By: #### L IPID, CMP, T7, BNP, TSH #### [facility] [address] [address] [address] David Das FREE THYROXINE INDEX T7on FTI 2.41 Normal [facility] Comment on above: Performed By: #### L IPID, CMP, T7, BNP, TSH #### [facility] [address] [place] [address] Dr. David Das T3U 33.0 % Normal 23.5-40.5 [facility] Comment on above: Performed By: #### L IPID, CMP, T7, BNP, TSH #### [facility] [address] [address] [address] David Das T4 [Mass/Vol] 7.30 ug/dL Normal 5.53-11.00 [facility] Comment on above: Performed By: #### L IPID, CMP, T7, BNP, TSH #### [facility] [address] [place] [address] Dr. David Das GLYCOHEMOGLOBIN A1Con 2021 ADA RECOMMENDATION ADA THERAPEUTIC TARGET 6.0 - 7.0 ACTION SUGGESTED > 7.0 Normal [facility] Comment on above: Performed By: #### A 1C #### [facility] [address] [place] [address] Dr. David Das Glucose [Mass/Vol] 100 mg/dL Normal [facility] Comment on above: Performed By: #### A 1C #### [facility] [address] [place] [address] Dr. David Das HbA1c (Bld) [Mass fraction] 5.1 % Normal <=6.0 [facility] Comment on above: Performed By: #### A 1C #### [facility] [address] [place] [address] Dr. David Das IRONon 02-01-2022 Iron [Mass/Vol] 101.0 ug/dL Normal 37.0-170.0 [facility] Comment on above: Performed By: #### L IPID, CMP, T7, BNP, TSH #### [facility] [address] [place] [address] Dr. David Das LIPID PROFILEon 02-01-2022 CHOL-HDL RATIO NORM SEE BELOW Normal [facility] Comment on above: Result Comment: 3.3 - 4.4 LOW RISK 4.4 - 7.1 AVERAGE RISK 7.1 - 11.0 MODERATE RISK >11.0 HIGH RISK Performed By: #### L IPID, CMP, T7, BNP, TSH #### [facility] [address] [address] [address] David Das Cholesterol [Mass/Vol] 123 mg/dL Normal <=200 [facility] Comment on above: Performed By: #### L IPID, CMP, T7, BNP, TSH #### [facility] [address] [address] [address] David Das Cholesterol in HDL [Mass/Vol] 44 mg/dL Normal 40-60 [facility] Comment on above: Performed By: #### L IPID, CMP, T7, BNP, TSH #### [facility] [address] [address] [address] David Das Cholesterol in LDL [Mass/Vol] 63.2 mg/dL Normal [facility] Comment on above: Performed By: #### L IPID, CMP, T7, BNP, TSH #### [facility] [address] [address] [address] David Das Cholesterol.total/Ch olesterol in HDL [Mass ratio] 2.8 {ratio} Normal [facility] Comment on above: Performed By: #### L IPID, CMP, T7, BNP, TSH #### [facility] [address] [address] [address] David Das HDL NORMAL > or = 60 mg/dl - LOW CARDIOVASCULAR RISK <40 mg/dl - HIGH CARDIOVASCULAR RISK Normal [facility] Comment on above: Performed By: #### L IPID, CMP, T7, BNP, TSH #### [facility] [address] [place] [address] Dr. David Das LDL CALC NORMAL SEE BELOW Normal [facility] Comment on above: Result Comment: <100 mg/dl OPTIMAL 100 - 129 mg/dl NEAR OR ABOVE OPTIMAL 130 - 159 mg/dl BORDERLINE HIGH 160 - 189 mg/dl HIGH >190 mg/dl VERY HIGH Performed By: #### L IPID, CMP, T7, BNP, TSH #### [facility] [address] [address] [address] David Das Triglyceride [Mass/Vol] 79 mg/dL Normal <=150 [facility] Comment on above: Performed By: #### L IPID, CMP, T7, BNP, TSH #### [facility] [address] [address] [address] David Das VLDL CALC 15.8 mg/dL Normal [facility] Comment on above: Performed By: #### L IPID, CMP, T7, BNP, TSH #### [facility] [address] [address] [address] David Das PROF 14(COMP METB)on 022 Albumin [Mass/Vol] 3.9 g/dL Normal 3.4-5.0 [facility] Comment on above: Performed By: #### L IPID, CMP, T7, BNP, TSH #### [facility] [address] [place] [address] Dr. David Das Albumin/Globulin [Mass ratio] 1.2 {ratio} Normal [facility] Comment on above: Performed By: #### L IPID, CMP, T7, BNP, TSH #### [facility] [address] [address] [address] David Das ALP [Catalytic activity/Vol] 49 U/L Normal 46-116 [facility] Comment on above: Performed By: #### L IPID, CMP, T7, BNP, TSH #### [facility] [address] [address] [address] David Das ALT [Catalytic activity/Vol] 13 U/L Critically low 14-59 [facility] Comment on above: Performed By: #### L IPID, CMP, T7, BNP, TSH #### [facility] [address] [address] [address] David Das Anion gap [Moles/Vol] 12.6 mmol/L Normal [facility] Comment on above: Performed By: #### L IPID, CMP, T7, BNP, TSH #### [facility] [address] [place] [address] Dr. David Das AST [Catalytic activity/Vol] 10 U/L Critically low 15-37 [facility] Comment on above: Performed By: #### L IPID, CMP, T7, BNP, TSH #### [facility] [address] [place] [address] Dr. David Das Bilirubin [Mass/Vol] 0.4 mg/dL Normal 0.2-1.3 [facility] Comment on above: Performed By: #### L IPID, CMP, T7, BNP, TSH #### [facility] [address] [place] [address] Dr. David Das Calcium [Mass/Vol] 8.7 mg/dL Normal 8.5-10.1 [facility] Comment on above: Performed By: #### L IPID, CMP, T7, BNP, TSH #### [facility] [address] [place] [address] Dr. David Das Chloride [Moles/Vol] 106 mmol/L Normal 98-107 [facility] Comment on above: Performed By: #### L IPID, CMP, T7, BNP, TSH #### [facility] [address] [place] [address] Dr. David Das CO2 [Moles/Vol] 27.9 mmol/L Normal 22.0-30.0 [facility] Comment on above: Performed By: #### L IPID, CMP, T7, BNP, TSH #### [facility] [address] [place] [address] Dr. David Das Creatinine [Mass/Vol] 0.69 mg/dL Normal 0.52-1.04 [facility] Comment on above: Performed By: #### L IPID, CMP, T7, BNP, TSH #### [facility] [address] [place] [address] Dr. David Das EGFR-AF SRI LANKAN >60 Normal >=60 [facility] Comment on above: Performed By: #### L IPID, CMP, T7, BNP, TSH #### [facility] [address] [place] [address] Dr. David Das EGFR-NON AF SRI LANKAN >60 Normal >=60 [facility] Comment on above: Performed By: #### L IPID, CMP, T7, BNP, TSH #### [facility] [address] [place] [address] Dr. David Das Globulin (S) [Mass/Vol] 3.2 g/dL Normal [facility] Comment on above: Performed By: #### L IPID, CMP, T7, BNP, TSH #### [facility] [address] [place] [address] Dr. David Das Glucose [Mass/Vol] 104 mg/dL Normal 74-106 [facility] Comment on above: Performed By: #### L IPID, CMP, T7, BNP, TSH #### [facility] [address] [place] [address] Dr. David Das Potassium [Moles/Vol] 4.5 mmol/L Normal 3.4-5.0 [facility] Comment on above: Performed By: #### L IPID, CMP, T7, BNP, TSH #### [facility] [address] [place] [address] Dr. David Das Protein [Mass/Vol] 7.1 g/dL Normal 6.1-8.2 [facility] Comment on above: Performed By: #### L IPID, CMP, T7, BNP, TSH #### [facility] [address] [place] [address] Dr. David Das Sodium [Moles/Vol] 142 mmol/L Normal 137-145 [facility] Comment on above: Performed By: #### L IPID, CMP, T7, BNP, TSH #### [facility] [address] [place] [address] Dr. David Das Urea nitrogen [Mass/Vol] 12.0 mg/dL Normal 7.0-18.0 [facility] Comment on above: Performed By: #### L IPID, CMP, T7, BNP, TSH #### [facility] [address] [place] [address] Dr. David Das Urea nitrogen/Creatinine [Mass ratio] 17.4 mg/mg Normal [facility] Comment on above: Performed By: #### L IPID, CMP, T7, BNP, TSH #### [facility] [address] [address] [address] David Das TSHon 02-01-2022 TSH 1.718 uIU/mL Normal 0.470-4.680 [facility] Comment on above: Performed By: #### L IPID, CMP, T7, BNP, TSH #### [facility] [address] [address] [address] David Das TSH RANGE SEE BELOW Normal [facility] Comment on above: Result Comment: <0.3 4 UIU/ml HYPERTHYROID 0.34-5.60 UIU/ml EUTHYROID >5.60 UIU/ml HYPOTHYROID Performed By: #### L IPID, CMP, T7, BNP, TSH #### [facility] [address] [place] [address] Dr. David Das [facility]18 SARS-CoV-2 (COVID-19) RNA BACILIO+probe [...] for this test is supported by the [employer] of Health and Human Service's (HHS's) declaration [...] SARS-CoV-2. Performed By: #### C VDTBH #### [facility] [address] [place] [address] Dr. David Das Vital Signs Date Time Vital Sign Value Performing Clinician Kelsey weaver 07-20-2025 09:16-0400 Body mass index (BMI) [Ratio] 23.98 kg/m2 Cherie Callahan [employer] Work Phone: [facility] 07-20-2025 09:16-0400 Body weight 59.48 kg Cherie Callahan [employer] Work Phone: [facility] 07-20-2025 09:16-0400 Diastolic blood pressure 70 mm[Hg] Cherie Callahan [employer] Work Phone: [facility] 07-20-2025 09:16-0400 Systolic blood pressure 120 mm[Hg] Cherie Callahan [employer] Work Phone: [facility] 07-13-2024 13:03-0400 Body mass index (BMI) [Ratio] 25.57 kg/m2 Gonzales Omayra DO Work Phone: [facility] 07-13-2024 13:03-0400 Body weight 63.41 kg Gonzales Omayra DO Work Phone: [facility] 07-13-2024 13:03-0400 Diastolic blood pressure 74 mm[Hg] Gonzales Omayra DO Work Phone: [facility] 07-13-2024 13:03-0400 Systolic blood pressure 104 mm[Hg] Gonzales Omayra DO Work Phone: [facility] Healthcare Encounters Encounter Date Encounter Type Care Provider Facility Start: 07-20-2025 End: 07-20-2025 Bamboo flowsheet Cherie Callahan [employer] Work Phone: [facility] Start: 07-20-2025 End: 07-20-2025 Bamboo flowsheet Cherie Callahan [employer] Work Phone: [facility] Start: 07-20-2025 End: 07-20-2025 Patient encounter procedure Cherie Sindy [employer] Work Phone: [facility] Healthcare Work Phone: Start: 07-20-2025 End: 07-20-2025 Periodic preventive med est patient 18-39 yrs Cherie Callahan [employer] Work Phone: [facility] Comment on above: Well woman exam with routine gynecological exam (Primary Dx); Exposure to STD; Vaginal discharge; Pelvic pain in female; Hormone disorder; Cervicitis and endocervicitis Start: 04-12-2025 End: 04-12-2025 ambulatory Deborah Deutsch Facility:[facility] Start: 02-27-2025 ambulatory YUN SUTTON [facility] lity:[facility] Start: 02-22-2025 End: 02-22-2025 ambulatory PROJECT DEVELOPMENT COORDINATOR HAMMAD A HERMAN [place] [place] Start: 09-06-2024 End: 09-06-2024 ambulatory HAMMAD A HERMAN [place] [place] Start: 09-06-2024 ambulatory HAMMAD HERMAN Facility :[facility] Start: 07-13-2024 End: 07-13-2024 Office outpatient visit 15 minutes Gonzales Omayra DO Work Phone: [facility] Comment on above: 6 weeks f ollow-up; Pre-op examination; Labial pain Start: 07-13-2024 End: 07-13-2024 Preprocedural examination done Gonzales Omayra DO Work Phone: [facility] Start: 07-13-2024 End: 07-13-2024 ambulatory GONZALES OMAYRA Not Available Start: 05-31-2024 End: 05-31-2024 ambulatory ALEXIS ORTIZ Not Available Start: 05-24-2024 End: 05-24-2024 ambulatory GONZALES OMAYRA Not Available Start: 05-10-2024 End: 05-10-2024 ambulatory GONZALES OMAYRA [...] Not Available Start: 12-28-2023 Clinisync Result Encounter Cor ey Omayra DO Work Phone: [facility] External [facility] Unsolicited Start: 12-28-2023 Clinisync Result Encounter Cor ey Omayra DO Work Phone: [facility] [...] Date Procedure Procedure Detail Performing Clinician Start: 07-20-2025 End: 07-20-2025 Urnls dip stick/tablet rgnt non-auto w/o micrscp Cherie Callahan [employer] Work Phone: Start: 12-28-2023 ALL CBC WITH AUTO DIFF Gonzales Omayra DO Work Phone: Start: 07-06-2023 Microscopic observat ion [Identifier] in Cervix by Cyto stain Gonzales Cutler DO Work Phone: Plan of Treatment Date Care Activity Detail Author Start: 07-06-2028 Screening for malign ant neoplasm of cervix [facility] Start: 08-01-2025 End: 08-01-2025 Patient encounter procedure 08/01/2025 2:20 PM EDT Consult SAIRA TORRES [address] [id number] Gonzales Cutler DO [address] [place] [address] [place] [address] [facility] Start: 07-20-2025 End: 07-20-2026 C-peptide C-peptide Lab Routine Hormone disorder Expected: 07/20/2025 (Approximate), Expires: 07/20/2026 [facility] Comment on above: Expected: 07/20/2025 (Approximate), Expires: 07/20/2026 Start: 07-20-2025 End: 07-20-2026 Cortisol free Cortisol, free Lab Routine Hormone disorder Expected: 07/20/2025 (Approximate), Expires: 07/20/2026 [facility] Comment on above: Expected: 07/20/2025 (Approximate), Expires: 07/20/2026 Start: 07-20-2025 End: 07-20-2026 Glucose [Mass/volume] in Serum or Plasma Glucose, random Lab Routine Hormone disorder Expected: 07/20/2025 (Approximate), Expires: 07/20/2026 [facility] Comment on above: Expected: 07/20/2025 (Approximate), Expires: 07/20/2026 Start: 07-20-2025 End: 07-20-2026 Insulin, total Insulin, total Lab Routine Hormone disorder Expected: 07/20/2025 (Approximate), Expires: 07/20/2026 [facility] Comment on above: Expected: 07/20/2025 (Approximate), Expires: 07/20/2026 Start: 07-20-2025 End: 07-20-2026 Serotonin serum Serotonin serum Lab Routine Hormone disorder Expected: 07/20/2025 (Approximate), Expires: 07/20/2026 [facility] Comment on above: Expected: 07/20/2025 (Approximate), Expires: 07/20/2026 Start: 07-20-2025 End: 07-20-2026 Thyroglobulin Thyroglobulin Lab Routine Hormone disorder Expected: 07/20/2025 (Approximate), Expires: 07/20/2026 [facility] Comment on above: Expected: 07/20/2025 (Approximate), Expires: 07/20/2026 Start: 07-20-2025 End: 07-20-2026 Thyroglobulin Antibody Thyroglobulin Antibody Lab Routine Hormone disorder Expected: 07/20/2025 (Approximate), Expires: 07/20/2026 [facility] Comment on above: Expected: 07/20/2025 (Approximate), Expires: 07/20/2026 Start: 07-20-2025 End: 07-20-2026 Thyrotropin [Units/volume] in Serum or Plasma T4 Lab Routine Hormone disorder Expected: 07/20/2025 (Approximate), Expires: 07/20/2026 [facility] Comment on above: Expected: 07/20/2025 (Approximate), Expires: 07/20/2026 Start: 07-20-2025 End: 07-20-2025 Patient encounter procedure 07/20/2025 9:00 AM EDT Procedure Visit SAIRA TORRES [address] [address] Cherie Callahan, [employer] [address] [place] [id number] Arrived [facility] Comment on above: Arrived Start: 07-17-2025 Influenza vaccination Influenza Vacc ine (#1) [facility] Start: 07-17-2024 Influenza vaccination Influenza Vacc ine (#1) [facility] Start: 01-06-2024 End: 01-06-2024 Patient encounter procedure 01/06/2024 2:10 PM EST Routine [facility] [address] [place] [id number] Gonzales Cutler, [address] [place] [address] [facility] Start: 07-17-2023 Influenza vaccination Influenza Vacc ine (#1) [facility] Start: 2023 Screening for malign ant neoplasm of cervix [facility] Start: 2014 Screening for malign ant neoplasm of cervix Pap Smear [facility] CHLAMYDIA TRACHOMATI S (GENITO/STI) CHLAMYDIA TRACHOMATIS (GENITO/STI) Lab Routine Exposure to STD Ordered: 07/20/2025 [facility] Comment on above: Ordered: 07/20/2025 Cytology Cervical or vaginal smear or scraping study Pap Smear Pathology and Cytology Routine Well woman exam with routine gynecological exam Ordered: 07/20/2025 [facility] Work Phone: Comment on above: Ordered: 07/20/2025 DHEA-sulfate DHEA-sulfate Lab Routine Hormone disorder Ordered: 07/20/2025 [facility] Comment on above: Ordered: 07/20/2025 Estradiol Estradiol Lab Ro utine Hormone disorder Ordered: 07/20/2025 [facility] Comment on above: Ordered: 07/20/2025 Estrone Estrone Lab Rout ine Hormone disorder Ordered: 07/20/2025 [facility] Comment on above: Ordered: 07/20/2025 Ferritin [Mass/volum e] in Serum or Plasma Ferritin Lab Routine Hormone disorder Ordered: 07/20/2025 [facility] Comment on above: Ordered: 07/20/2025 Human papilloma viru s DNA [Presence] in Unspecified specimen by Probe with amplification HPV DNA probe, amplified Microbiology Routine Well woman exam with routine gynecological exam Ordered: 07/20/2025 [facility] Comment on above: Ordered: 07/20/2025 Neisseria gonorrhoea e DNA [Presence] in Unspecified specimen by BACILIO with probe detection Neisseria gonorrhea DNA probe, direct Lab Routine Exposure to STD Ordered: 07/20/2025 [facility] Comment on above: Ordered: 07/20/2025 Progesterone Progesterone Lab Routine Hormone disorder Ordered: 07/20/2025 [facility] Comment on above: Ordered: 07/20/2025 Sex hormone binding globulin Sex hormone binding globulin Lab Routine Hormone disorder Ordered: 07/20/2025 [facility] Comment on above: Ordered: 07/20/2025 SURESWAB(R) ADVANCED VAGINITIS PLUS, TMA SURESWAB(R) ADVANCED VAGINITIS PLUS, TMA Pathology and Cytology Routine Vaginal discharge Ordered: 07/20/2025 [facility] Comment on above: Ordered: 07/20/2025 T3, reverse T3, reverse Lab Routine Hormone disorder Ordered: 07/20/2025 [facility] Comment on above: Ordered: 07/20/2025 TESTOSTERONE, FREE TESTOSTERONE, FREE Lab Routine Hormone disorder Ordered: 07/20/2025 [facility] Comment on above: Ordered: 07/20/2025 Testosterone, free, total Testos terone, free, total Lab Routine Hormone disorder Ordered: 07/20/2025 [facility] Comment on above: Ordered: 07/20/2025 Thyroid peroxidase antibody Thyroid peroxidase antibody Lab Routine Hormone disorder Ordered: 07/20/2025 [facility] Comment on above: Ordered: 07/20/2025 Thyroxine (T4) free [Mass/volume] in Serum or Plasma T4, free Lab Routine Hormone disorder Ordered: 07/20/2025 [facility] Comment on above: Ordered: 07/20/2025 Triiodothyronine (T3 ) Free [Mass/volume] in Serum or Plasma T3, free Lab Routine Hormone disorder Ordered: 07/20/2025 [facility] Comment on above: Ordered: 07/20/2025 Vitamin D 1,25 dihydroxy Vitamin D 1,25 dihydroxy Lab Routine Hormone disorder Ordered: 07/20/2025 [facility] Comment on above: Ordered: 07/20/2025 Immunizations Immunization Date Immunization Notes Care Provider Debbie chamorro 08-03-2022 influenza virus vacc ine, unspecified formulation Gonzales Cutler DO Work Phone: [facility] Healthcare Payers Date Payer Category Payer Self-pay [id number] 2023 [facility] [id number] 2023 Unknown BCBS BCBS xxxxxx [id number] 2023-Present [phone] [id number] [place] [address] [id number] 2023 Unknown [id number] 1993 Unknown [id number] 2.16840.1.885136.3.579.2. 593 1993 Unknown [id number] 2.840.1.712452.3.579.2. 593 1993 Unknown [id number] 2.16840.1.050423.3.579.2. 593 1993 Unknown [id number] 2.16840.1.516139.3.579.2. 593 1993 Unknown [id number] 2.16840.1.438563.3.579.2. 593 1993 Unknown [id number] 2.16840.1.556182.3.579.2. 593 1993 Unknown [id number] 2.16840.1.363545.3.579.2. 593 1993 Unknown [id number] 2.16840.1.716173.3.579.2. 593 1993 Unknown [id number] 2.16840.1.967499.3.579.2. 593 1993 Unknown [id number] 2.16840.1.875229.3.579.2. 1259 1993 Unknown [id number] 2.16.840.1.435750.3.579.2. 9 1993 Unknown [id number] 2.16.840.1.241531.3.579.2. 1258 1993 Unknown [id number] 2.16.840.1.107189.3.579.2. 1258 1993 Unknown [id number] 2.16.840.1.199110.3.579.2. 1258 1993 Unknown [id number] 2.16.840.1.573975.3.579.2. 1258 1993 Unknown [id number] 2.16.840.1.367611.3.579.2. 1258 1993 Unknown [id number] 2.16.840.1.808934.3.579.2. 1258 1993 Unknown [id number] 2.16.840.1.446730.3.579.2. 1258 1993 Unknown [id number] 2.16.840.1.515172.3.579.2. 1258 1993 Unknown [id number] 2.16.840.1.392640.3.579.2. 1258 1993 Unknown [id number] 2.16.840.1.016335.3.579.2. 1993 Unknown [id number] 2.16.840.1.199421.3.579.2. 1993 Unknown [id number] 2.16.840.1.992767.3.579.2. 727 1993 Unknown [id number] 2.16.840.1.939918.3.579.2. 1993 Unknown [id number] 2.16.840.1.840299.3.579.2. 727 1959 Self-pay 1959 Unknown [id number] 1959 Unknown [id number] 1959 Unknown [id number] 1959 Unknown [id number] Social History Date Type Detail Facility [facility]: [facility] Start: 07-01-2023 End: 09-12-2024 History of Social function [facility] Start: 07-01-2023 End: 09-12-2024 Tobacco use panel [facility] Start: 09-28-2023 [facility] Start: 1995 Sex Assigned At Female [facility] Start: 05-08-2023 Gender identity Identifies as female gender (finding) [facility] Start: 05-08-2023 Sexual orientation Heterosexual (fin ding) [facility] Goals Date Patient Goal Desired Activity /State Personal health goal History of Present illness Narrative 07-20-2025 Cherie Callahan NP - 07/20/2025 9:00 AM EDT Note Date & Type Note Facility 07-20-2025 History of Presen t illness Narrative Reason for Appointment: Patient ID: Zara Gao [...] Active Ambulatory Problems Diagnosis Date Noted Surrogate ([facility]) 07/06/2023 Resolved Ambulatory Problems Diagnosis Date Noted [...] nursing note reviewed. Exam conducted with a employment evaluator/case manager present. Vitals: Estimated body mass index is 23.98 kg/m as calculated from the following: Height as [...] by Cherie Callahan NP on behalf of: Chreie Callahan NP documented in this encounter [facility] Clinical Note 02-22-2025 Note Date & Type Note Facility 02-22-2025 Note Patient Education Obstetrics and Gynecology Health Maintenance, Female Adopting a healthy lifestyle and getting preventive care are important in promoting health and wellness. Ask your health care provider about: ??? The right schedule for you to have regular tests and exams. ??? Things you can do on your own to prevent diseases and keep yourself healthy. What should I know about diet, weight, and exercise? Eat a healthy diet ??? Eat a diet that includes plenty of vegetables, fruits, low-fat dairy products, and lean protein. ??? Do not eat a lot of foods that are high in solid fats, added sugars, or sodium. Maintain a healthy weight Body mass index (BMI) is used to identify weight problems. It estimates body fat based on height and weight. Your health care provider can help determine your BMI and help you achieve or maintain a healthy weight. Get regular exercise Get regular exercise. This is one of the most important things you can do for your health. Most adults should: ??? Exercise for at least 150 minutes each week. The exercise should increase your heart rate and make you sweat (moderate-intensity exercise). ??? Do strengthening exercises at least twice a week. This is in addition to the moderate-intensity exercise. ??? Spend less time sitting. Even light physical activity can be beneficial. Watch cholesterol and blood lipids Have your blood tested for lipids and cholesterol at 20 years of age, then have this test every 5 years. Have your cholesterol levels checked more often if: ??? Your lipid or cholesterol levels are high. ??? You are older than 40 years of age. ??? You are at high risk for heart disease. What should I know about cancer screening? Depending on your health history and family history, you may need to have cancer screening at various ages. This may include screening for: ??? Breast cancer. ??? Cervical cancer. ??? Colorectal cancer. ??? Skin cancer. ??? Lung cancer. What should I know about heart disease, diabetes, and high blood pressure? Blood pressure and heart disease ??? High blood pressure causes heart disease and increases the risk of stroke. This is more likely to develop in people who have high blood pressure readings or are overweight. ??? Have your blood pressure checked: ? Every 3?5 years if you are 18?39 years of age. ? Every year if you are 40 years old or older. Diabetes Have regular diabetes screenings. This checks your fasting blood sugar level. Have the screening done: ??? Once every three years after age 40 if you are at a normal weight and have a low risk for diabetes. ??? More often and at a younger age if you are overweight or have a high risk for diabetes. What should I know about preventing infection? Hepatitis B If you have a higher risk for hepatitis B, you should be screened for this virus. Talk with your health care provider to find out if you are at risk for hepatitis B infection. Hepatitis C Testing is recommended for: ??? Everyone born from 1945 through 1965. ??? Anyone with known risk factors for hepatitis C. Sexually transmitted infections (STIs) ??? Get screened for STIs, including gonorrhea and chlamydia, if: ? You are sexually active and are younger than 24 years of age. ? You are older than 24 years of age and your health care provider tells you that you are at risk for this type of infection. ? Your sexual activity has changed since you were last screened, and you are at increased risk for chlamydia or gonorrhea. Ask your health care provider if you are at risk. ??? Ask your health care provider about whether you are at high risk for HIV. Your health care provider may recommend a prescription medicine to help prevent HIV infection. If you choose to take medicine to prevent HIV, you should first get tested for HIV. You should then be tested every 3 months for as long as you are taking the medicine. ??? If you are about to stop having your period (premenopausal) and you may become , seek counseling before you get . ??? Take 400 to 800 micrograms (mcg) of folic acid every day if you become . ??? Ask for control (contraception) if you want to prevent . Osteoporosis and menopause Osteoporosis is a disease in which the bones lose minerals and strength with aging. This can result in bone fractures. If you are 65 years old or older, or if you are at risk for osteoporosis and fractures, ask your health care provider if you should: ??? Be screened for bone loss. ??? Take a calcium or vitamin D supplement to lower your risk of fractures. ??? Be given hormone replacement therapy (HRT) to treat symptoms of menopause. Follow these instructions at home: Alcohol use ??? Do not drink alcohol if: ? Your health care provider tells you not to drink. ? You are , may be , or are planning to become . ??? If you drink alcohol: ? (more content not included)... [facility] History of Present illness Narrative 07-13-2024 Mary Bryce - 07/13/2024 1:00 PM EDT Note Date & Type Note Facility 07-13-2024 History of Presen t illness Narrative Reason for Appointment: Patient ID: Zara Gao is a 29 y.o. female who presents for Care and Pre-op Visit Patient presents today for 6 Week Post /Pre Op appointment. Patient is scheduled to undergo Labial Reconstruction (Labiaplasty) on 08/12/[address] Cutler at [facility]. MEDICATIONS Current Outpatient Medications Medication Instructions albuterol HFA 90 mcg/act inhaler 2 puffs, Inhalation, Every 6 hours PRN loratadine-pseudoephedrine ER (Alavert Allergy/Sinus) 5-120 MG 12 hr tablet Every 12 hours omeprazole (PRILOSEC) 20 mg, Oral, Daily before breakfast, Do not crush or chew. ondansetron ODT (Zofran-ODT) 4 MG disintegrating tablet DISSOLVE 1 TABLET ON TONGUE EVERY 6 HOURS NEEDED FOR NAUSEA OR VOMITING Qtokgnjl-Igl-Ny-FA ( 1 + IRON PO) 1 each, Oral, Daily ALLERGIES No Known Allergies PROBLEMS Active Ambulatory Problems Diagnosis Date Noted Surrogate 07/06/2023 Resolved Ambulatory Problems Diagnosis Date Noted [...] Review of Systems: Review of Systems Constitutional: Negative. HENT: Negative. Eyes: Negative. Respiratory: Negative. Cardiovascular: Negative. Gastrointestinal: Negative. Genitourinary: Positive for vaginal pain. Musculoskeletal: Negative. Skin: Negative. Neurological: Negative. All other systems reviewed and are negative. Hematological: Negative. Endocrine: Negative. Allergic/Immunologic: Negative. OBJECTIVE Objective: Physical Exam Constitutional: Appearance: Normal appearance. She is well-developed. Cardiovascular: Rate and Rhythm: Normal rate and [...] nursing note reviewed. Exam conducted with a employment evaluator/case manager present. Vitals: Estimated body mass index is 25.57 kg/m as calculated from the following: Height as of 07/06/23: 5' 2 . Weight as of this encounter: 139 lb 12.8 oz. BP: 104/74 Patient's last menstrual period was 07/06/2023. ASSESSMENT & PLAN ICD-10-CM 1. 6 weeks follow-up Z39.2 2. Pre-op examination Z01.818 3. Labial pain N94.89 Post Follow Up: Patient presents today for 6 week visit following surrogate . Patient is s/p Vaginal delivery on 06/02/2024. Patient denies depression but denies suicidal and homicidal ideations. All options were discussed with the patient regarding control and patient desires none at this time. Pt has complaints of lump of right breast pt is currently pumping. Pt advised to apply heat and massage in one week if lump doesn't go away will order ultrasound. Pre Op: Patient is doing well but has complaints of labial pain. I have discussed conservative management vs. surgical management with the patient in detail and patient desires surgical management at this time. Patient will undergo Labial Reconstruction (Labiaplasty) on 08/12/2024. Surgical consents were signed, mmc was reviewed, and patient is to proceed to [facility] OR. Follow Up: Patient is to follow up between 1-2 weeks post operative to assess proper healing and recovery from procedure. Documented by Bailey Gallegos LPN on behalf of: Gonzales Cutler DO documented in this encounter [facility] Evaluation note Note Date & Type Note Facility Evaluation note Diagnosis 6 weeks follow-up Pre-op examination Labial pain Unspecified symptom associated with female genital organs documented in this encounter [facility] Evaluation note Note Date & Type Note Facility Evaluation note Diagnosis Well woman exam with routine gynecological exam- Primary Routine gynecological examination Exposure to STD Vaginal discharge Leukorrhea, not specified as infective Pelvic pain in female Unspecified symptom associated with female genital organs Hormone disorder Unspecified endocrine disorder Cervicitis and endocervicitis documented in this encounter [facility] Summary Purpose Family History No Family History [...] ized section and content) DATE CREATED AUTHOR 11/13/2022 [facility] DATE CREATED AUTHOR AUTHOR'S ORGANIZ ATION 07/15/2024 [facility]ical [facility] EPIC DATE CREATED AUTHOR AUTHOR'S ORGANIZ ATION 09/08/2024 [facility] DATE CREATED AUTHOR AUTHOR'S ORGANIZ ATION 09/10/2024 [facility] DATE CREATED AUTHOR AUTHOR'S ORGANIZ ATION 02/24/2025 [facility] DATE CREATED AUTHOR AUTHOR'S ORGANIZ ATION 04/13/2025 [facility] DATE CREATED AUTHOR AUTHOR'S ORGANIZ ATION 05/31/2025 [facility] Reason for Visit (unrecogniz ed section and content) Reason Comments Care Pre-op Visit Reason Comments Well Women Visit FOR RECORDS PERTAINING TO PATIENTS WHO ARE [...] BE BASED ON THE PRIMARY CLINICAL RECORDS. [facility] [employer] provides no warranty or guarantee of the accuracy or completeness of information in this document.
[2025-07-23 10:24] LABS: Age Gdln ACOG Testing Note (.); IGP, Aptima HPV, rfx 16/18,45 Note (.)
== END 2025-07-20 09:10 | disposition home or self-care (01) ==
LOC: LAB 09:09
PROVIDERS: Visit Provider Nurse Practitioner Family
DX: Z01.419 Encounter for gynecological examination (general) (routine) without abnormal findings (principal)
CPT/HCPCS: 87624; 88175

== ENCOUNTER 2025-08-14 08:54 | Outpatient (OUT) | payer BC, SELFPAY ==
--- OUTSIDE RECORDS SUMMARY | 2024-06-03 06:00 | XMS_ITS ---
Author Organization [facility] vices Address [address] [id number] Care Team Providers Care Sales Account Leader Name Role Phone Wesley Franks Primary Care Provider REASON FOR VISIT Wellness Social History Sex Assigned At : Social History Observation Description Sex Assigned At Female Encounters Encounter Location Date Provider Diagnosis [facility] [address] [place] [address] 06/03/2024 Wesley Franks Plan Of Treatment No Information Progress Notes * Zara ROBISON NDOB:1994 (30 yo F)Acc No.[id number]:06/03/2024 Medical Note Patient: Zara CRANE Provider: ANA Charles :1995 A ge:28 Y S ex:Female Date:06/03/2024 Address:[address] [place], [place] [address] Subjective: * Chief Complaints: * 1 . Wellness. * Medical History: Objective: * Vitals: Assessment: Plan: * Treatment: * Billing Information: * Visit Code: * Procedure Codes: * Electronic signature of Wai Franks NP on 08/14/2025 at 09:01 AM EDT Sign off status: Pending * Provider: ANA Charles Date: 06/03/2024 Generated for Azrai ng/Fabertin/eTransmitting on: 08/14/2025 09:01 AM EDT
--- OUTSIDE RECORDS SUMMARY | 2025-08-01 14:20 | XMS_ITS ---
Author Name Auto Generated Organization OHIP Care Team Providers Care Pharmacy District Manager Name Role Phone BENITO KIRKLAND Attending Unavailable GONZALES LEON Attending Unavailable Deborah Deutsch Attending Unavailable HERMAN, YUN HAMMAD A Attending Unavailabl e HERMAN, OFFICE MACHINE REPAIR SHOP SUPERVISOR HAMMAD A Attending Unavailabl e HERMAN, OFFICE MACHINE REPAIR SHOP SUPERVISOR HAMMAD A Admitting Unavailabl e HERMAN, OFFICE MACHINE REPAIR SHOP SUPERVISOR HAMMAD A Attending Unavailabl e HERMAN, OFFICE MACHINE REPAIR SHOP SUPERVISOR HAMMAD A Admitting Unavailabl e HERMAN, OFFICE MACHINE REPAIR SHOP SUPERVISOR HAMMAD A Attending Unavailabl e HERMAN, OFFICE MACHINE REPAIR SHOP SUPERVISOR HAMMAD A Admitting Unavailabl e HERMAN, OFFICE MACHINE REPAIR SHOP SUPERVISOR HAMMAD A Attending Unavailabl e PROBLEMS No Problem Records Found PROCEDURES No Procedure Records Found RESULTS PATIENT EDUCATION Observed: 02/22/2025 9:51 AM Status: F Source: [facility] Patient Education Obstetrics and Gynecology Health Maintenance, [...] . ??? If you drink alcohol: ? Limit how much you have to: ? 0?1 drink a day. ? Know how much alcohol is in your drink. In the [place] one drink equals one 12 oz bottle of beer (355 mL), one 5 oz glass of wine (148 mL), or one 1? oz glass of hard liquor (44 mL). Lifestyle ??? Do not use any products that contain nicotine or tobacco. These products include cigarettes, chewing tobacco, and vaping devices, such as e-cigarettes. If you need help quitting, ask your health care provider. ??? Do not use street drugs. ??? Do not share needles. ??? Ask your health care provider for help if you need support or information about quitting drugs. General instructions ??? Schedule regular health, dental, and eye exams. ??? Stay current with your vaccines. ??? Tell your health care provider if: ? You often feel depressed. ? You have ever been abused or do not feel safe at home. Summary ??? Adopting a healthy lifestyle and getting preventive care are important in promoting health and wellness. ??? Follow your health care provider's instructions about healthy diet, exercising, and getting tested or screened for diseases. ??? Follow your health care provider's instructions on monitoring your cholesterol and blood pressure. This information is not intended to replace advice given to you by your health care provider. Make sure you discuss any questions you have with your health care provider. Document Revised: 03/24/2022 Document Reviewed: 03/24/2022 [employer] Patient Education ? 2023 Access [employer] TSH WITH T4FR REFLEX Collected: 025 8:16 AM Status: F Source: [facility] TYPE CODE TESTS RESULT OUT OF RANGE REFERENCE UNITS LAB 3016-3(LOINC) THYROTROPIN: ACNC:PT:SER/ PLAS:QN: 2.28 Normal 0.34-5.60 mcIU/mL Performed By: #### [id number] #### [facility] [address] [place] [address] EGFR Collected: 8:16 AM Status: F Source: [facility] TYPE CODE TESTS RESULT OUT OF RANGE REFERENCE UNITS LAB 86547126(LOINC) eGFR 118 Normal >=59 mL/min/1 .7 3 m2 Performed By: #### [id number] #### [facility] [address] [place] [address] CMP Collected: 02/22/2025 8:16 AM Status: F Source: [facility] TYPE CODE TESTS RESULT OUT OF RANGE REFERENCE UNITS LAB 2345-7(LOINC) GLUCOSE:MCNC:P T:SER/PLAS:QN: 86 Normal 55-199 mg/dL LAB 3094-0(LOINC) UREA NITROGEN:MCNC: PT:SER/PLAS:QN : 12 Normal 5-21 mg/dL LAB 2160-0([facility]) CREATININE:MCN C:PT:SER/PLAS: QN: 0.7 Normal 0.5-1.3 mg/dL LAB 68928-9([facility]) CALCIUM:MCNC:P T:SER/PLAS:QN: 9.1 Normal 8.9-11.1 mg/dL LAB 2951-2([facility]) SODIUM:SCNC:PT :SER/PLAS:QN: 136 Normal 135-145 mmol/L LAB 2823-3([facility]) POTASSIUM:SCNC :PT:SER/PLAS:Q N: 4.5 Normal 3.5-5.3 mmol/L LAB 2075-0([facility]) CHLORIDE:SCNC: PT:SER/PLAS:QN : 106 Normal 101-111 mmol/L LAB 2028-9([facility]) CARBON DIOXIDE:SCNC:P T:SER/PLAS:QN: 25 Normal 21-31 mmol/L LAB 6768-6([facility]) ALKALINE PHOSPHATASE:CC NC:PT:SER/PLAS :QN: 48 Normal 21-98 Int._Unit /L LAB 1975-2([facility]) BILIRUBIN:MCNC :PT:SER/PLAS:Q N: 0.8 Normal 0.0-1.1 mg/dL LAB 1751-7([facility]) ALBUMIN:MCNC:P T:SER/PLAS:QN: 4.5 Normal 3.3-5.0 gm/dL LAB 2885-2([facility]) PROTEIN:MCNC:P T:SER/PLAS:QN: 7.4 Normal 6.0-7.8 gm/dL LAB 1744-2([facility]) ALANINE AMINOTRANSFERA SE:CCNC:PT:SER /PLAS:QN:NO ADDITION OF P-5'-P 14 Normal 6-46 Int._Unit /L LAB 1920-8([facility]) ASPARTATE AMINOTRANSFERA SE:CCNC:PT:SER /PLAS:QN: 17 Normal 5-43 Int._Unit /L LAB 3097-3([facility]) UREA NITROGEN/CREAT ININE:MRTO:PT: SER/PLAS:QN: 17 Normal 10-20 No Units LAB 12090-0([facility]) ANION GAP:SCNC:PT:SE R/PLAS:QN:CALC ULATED 10 Normal 6-16 mEq/L LAB 57776-6([facility]) GLOBULIN:MCNC: PT:SER:QN:CALC ULATED 2.9 Normal 1.4-4.0 gm/dL LAB 33306-7([facility]) ALBUMIN/GLOBUL IN:MCRTO:PT:SE R:QN: 1.6 Normal 1.1-2.2 Performed By: #### [id number] # ### [facility] [address] [place] [address] CBC W/ AUTO DIFF Collected: 02/22/2025 8:16 AM Statu s: F Source: [facility] TYPE CODE TESTS RESULT OUT OF RANGE REFERENCE UNITS LAB 79059-2([facility]) LEUKOCYTES^^CO RRECTED FOR NUCLEATED ERYTHROCYTES:N CNC:PT:BLD:QN: AUTOMATED COUNT 6.0 Normal 4.0-11.0 E9/L LAB 789-8([facility]) ERYTHROCYTES:N CNC:PT:BLD:QN: AUTOMATED COUNT 4.8 Normal 4.3-5.9 E12/L LAB 718-7([facility]) HEMOGLOBIN:MCN C:PT:BLD:QN: 14.7 Normal 12.0-16.0 gm/dL LAB 4544-3([facility]) ERYTHROCYTE/BL OOD:VFR:PT:BLD :QN:AUTOMATED COUNT 43.2 Normal 34.0-46.0 % LAB 788-0([facility]) OBSERVATION:DI STWIDTH:PT:RBC :QN:AUTOMATED COUNT 14.5 High 10.9-14.2 % LAB 785-6([facility]) HEMOGLOBIN:ENT MASS:PT:RBC:QN :AUTOMATED COUNT 30.8 Normal 27.0-34.0 pg LAB 786-4([facility]) HEMOGLOBIN:ENT MCNC:PT:RBC:QN :AUTOMATED COUNT 33.9 Normal 31.4-36.0 gm/dL LAB 787-2([facility]) OBSERVATION:EN TMEANVOL:PT:RB C:QN:AUTOMATED COUNT 90.8 Normal 80.0-100.0 fL LAB 26715-8([facility]) PLATELET:ENTME ANVOL:PT:BLD:Q N:AUTOMATED COUNT 10.2 Normal 6.4-10.8 fL LAB 777-3([facility]) PLATELETS:NCNC :PT:BLD:QN:AUT OMATED COUNT 185.0 Normal 150.0-500.0 E9/L LAB 66348-6([facility]) NEUTROPHILS/LE UKOCYTES:NFR:P T:BLD:QN: 57.0 Normal 36.0-75.0 % LAB 731-0([facility]) LYMPHOCYTES:NC NC:PT:BLD:QN:A UTOMATED COUNT 34.2 Normal 14.0-50.0 % LAB 742-7([facility]) MONOCYTES:NCNC :PT:BLD:QN:AUT OMATED COUNT 0.5 Normal 0.2-1.0 E9/L LAB 713-8([facility]) EOSINOPHILS/LE UKOCYTES:NFR:P T:BLD:QN:AUTOM ATED COUNT 0.6 Normal 0.0-8.0 % LAB 704-7([facility]) BASOPHILS:NCNC :PT:BLD:QN:AUT OMATED COUNT 0.7 Normal 0.0-2.0 % LAB 751-8([facility]) NEUTROPHILS:NC NC:PT:BLD:QN:A UTOMATED COUNT 3.4 Normal 2.0-7.5 E9/L LAB 45933-7([facility]) LYMPHOCYTES:NC NC:PT:BLD:QN: 2.1 Normal 1.0-4.0 E9/L LAB 85095-2([facility]) EOSINOPHILS:NC NC:PT:BLD:QN: 0.0 Normal 0.0-0.5 E9/L LAB 14440-0([facility]) BASOPHILS/LEUK OCYTES:NFR.DF: PT:BLD:QN:AUTO MATED COUNT 0.0 Normal 0.0-0.2 E9/L Performed By: #### [id number] # ### [facility] [address] [place] [address] LIPID PANEL Collected: 02/22/2025 8:16 AM Status: F Source: [facility] TYPE CODE TESTS RESULT OUT OF RANGE REFERENCE UNITS LAB 3-3([facility]) CHOLESTEROL:M CNC:PT:SER/PL :QN: 128 Normal 120-200 mg/dL LAB 9([facility]) CHOLESTEROL.I N HDL:MCNC:PT:S ER/PLAS:QN: 50 Unknown mg/dL Result Comment: '>= 60 LOW R ISK' '<= 40 HIGH RISK' LAB 2088-11([facility]) CHOLESTEROL.I N LDL:MCNC:PT:S ER/PLAS:QN: 80 Normal <=129 mg/dL LAB 2571-8([facility]) TRIGLYCERIDE: MCNC:PT:SER/P LAS:QN: 82 Normal <=149 mg/dL LAB 46429-2([facility]) CHOLESTEROL.I N VLDL:MCNC:PT: SER/PLAS:QN:C ALCULATED 16 Normal 7-40 mg/dL Performed By: #### [id number] # ### [facility] [address] [place] [address] AMBULATORY VISIT SUMMARY Observed: 02/22 7:35 AM Status: F Source: [facility] Ambulatory Visit Summary ZARA ROBISON :1995 Visit Date:02/22/2025 Ambulatory Visit Instructions Your Diagnosis Well adult exam Blood in stool Constipation Coccyx pain Non-smoker BMI 23.0-23.9, adult Your Care Team Attending Physician - HAMMAD SUTTON CNP Primary Care Physician - HAMMAD SUTTON CNP This Is Your Medications List albuterol (albuterol 90 mcg/inh inhalation powder) doxycycline (doxycycline hyclate 100 mg Tab) ondansetron (ondansetron 4 mg Tab) Procedures Performed EGD - Esophagogastroduodenoscopy, Tonsillectomy. Discharge Vitals Temperature (Oral) 36.3 ???C [...] Traumatic, No, Blood in stool Coccyx pain, pp_set_radiology_subspecialty, [facility] Medications What How Much When Instructions Unchanged [...] you for choosing us for your care. FAMILY MEDICINE OFFICE/CLINI C NOTE Observed: 02/22/2025 7:35 AM Status: F Source: [facility] Family Medicine Office/Clini c Note Chief Complaint The patient reports intermittent [...] Diff Comprehensive Metabolic Panel Lab Specimen Collect 96288 Lipid Panel TSH With T4fr Reflex 2. Blood in stool (K92.1: Melena) - Recommend MiraLAX as a stool softener to alleviate symptoms linked with straining. - Initiate referral to gastroenterology for detailed evaluation due to family history considerations. - Continue assessing stool softening impact and adjust interventions as necessary. [place] [facility] [place] XR Sacrum and Coccyx Min 2 Views 3. Constipation (K59.00: Constipation, unspecified) - Start MiraLAX - Encouraged to drink at least 64 ounces of water per day Ordered: polyethylene glycol 3350, 17 gm, Oral, Daily, # 10 EA, Refills(s) 1, Pharmacy: [id number], 159, cm, 02/22/25 7:44:00 EDT, Height/Length Dosing, 59.2, kg, 02/22/25 7:44:00 EDT, Weight Dosing 4. Coccyx pain (M53.3: Sacrococcygeal disorders, not elsewhere classified) - Plan x-ray imaging for further evaluation due to pain persistence and exacerbation post-childbirth. - Suggest sitting cushion use to reduce coccygeal pressure. - Explore physical therapy pending pain reassessment. - Observe pain progression and consider further pharmacological management if needed. Ordered: XR Sacrum and Coccyx Min 2 Views 5. Non-smoker (Z78.9: Other specified health status) - Encouraged to continue as a non-smoker 6. BMI 23.0-23.9, adult (Z68.23: Body mass index [BMI] 23.0-23.9, adult) - BMI 23.42 Follow-up No qualifying data available Patient Education Health Maintenance, Female Problem List/Past Medical History Ongoing Anxiety disorder Asthma BMI 24.0-24.9, adult BMI 26.0-26.9,adult Changing nevus IBS (irritable bowel syndrome) Neoplasm of uncertain behavior of skin Nonsmoker Orthostatic hypotension Scoliosis Historical No qualifying data Procedure/Surgical History EGD - Esophagogastroduodenoscopy, Tonsillectomy. Medications albuterol 90 mcg/inh inhalation powder, 1.0 Inhaler(s), Inhalation, q6hr Miralax 3350 17 gram packet, 17 gm, Oral, Daily, 1 refills ondansetron 4 mg Tab, 56 tab(s), Oral, q6hr Allergies No Known Allergies No Known Medication Allergies Social History Alcohol - Denies Alcohol Use, 02/12/2022 Never., 09/06/2024 Substance Abuse - Denies Substance Abuse, 02/12/2022 Never., 09/06/2024 Tobacco Never (less than 100 in lifetime) Tobacco Use:. Never Smokeless Tobacco Use:. Household tobacco concerns: No. Yes, 02/22/2025 Family History Anxiety: Mother. COPD: Mother. Depression: Father. Hypertension: Sister. Immunizations Vaccine Date Status Comments influenza virus vaccine, inactivated 08/03/2022 Recorded SARS-CoV-2 (COVID-19) mRNA BNT-162b2 vax 10/24/2021 Recorded influenza virus vaccine, inactivated 08/04/2021 Recorded influenza virus vaccine, inactivated 07/2021 Recorded SARS-CoV-2 (COVID-19) mRNA BNT-162b2 vax 04/24/2021 Recorded 2024-09-06: TPVAL SARS-CoV-2 (COVID-19) mRNA BNT-162b2 vax 04/07/2021 Recorded 2024-09-06: TPVAL influenza, unspecified formulation 09/13/2020 Recorded influenza virus vaccine, inactivated 06/24/2018 Recorded diphtheria/pertussis, acel/tetanus adult 03/20/2015 Recorded Result Comment: Electronical ly Signed By: HAMMAD SUTTON CNP\.bunny\Date and Time Signed: 02/22/25 09:52 EDT FAMILY MEDICINE OFFICE/CLINI C NOTE Observed: 09/06/2024 2:04 PM Status: F Source: [facility] Family Medicine Office/Clini c Note Chief Complaint Establish Care *possible UTI [...] take AZO this morning. Does get UTI 1- 2x/yr. History of Present Illness 29 year old [...] day(s), # 10 tab(s), Refills(s) 0, Pharmacy: [facility]/pharmacy #[id number], 159, cm, 09/06/24 13:14:00 EDT, Height/Length Dosing, 63, kg, 09/06/24 13:14:00 EDT, Weight Dosing Urine Culture Urnls Dip Stick Auto w/o Microscopy POC 17703 2. Encounter to establish care (Z76.89: Persons encountering health services in other specified circumstances) Ordered: ciprofloxacin, 500 mg = 1 tab(s), Oral, q12hr, X 5 day(s), # 10 tab(s), Refills(s) 0, Pharmacy: [facility]/pharmacy #[id number], 159, cm, 09/06/24 13:14:00 EDT, Height/Length Dosing, 63, kg, 09/06/24 13:14:00 EDT, Weight Dosing 3. BMI 24.0-24.9, adult (Z68.24: Body mass index [BMI] 24.0-24.9, adult) Monitor weight at each visit Encourage portion control and daily exercise Ordered: ciprofloxacin, 500 mg = 1 tab(s), Oral, q12hr, X 5 day(s), # 10 tab(s), Refills(s) 0, Pharmacy: [facility]/pharmacy #[id number], 159, cm, 09/06/24 13:14:00 EDT, Height/Length Dosing, 63, kg, 09/06/24 13:14:00 EDT, Weight Dosing 4. Nonsmoker (Z78.9: Other specified health status) Encouraged to continue as a non-smoker Ordered: ciprofloxacin, 500 mg = 1 tab(s), Oral, q12hr, X 5 day(s), # 10 tab(s), Refills(s) 0, Pharmacy: [facility]/pharmacy #[id number], 159, cm, 09/06/24 13:14:00 EDT, Height/Length Dosing, 63, kg, 09/06/24 13:14:00 EDT, Weight Dosing Follow-up With When Contact Information HERMAN MALCOLM, PRINCE FERRO Within 1 year [address] [place] [address] Business (1) Additional Instructions: Well check Problem List/Past Medical History Ongoing Anxiety disorder Asthma BMI 24.0-24.9, adult BMI 26.0-26.9,adult Changing nevus IBS (irritable bowel syndrome) Neoplasm of uncertain behavior of skin Nonsmoker Orthostatic hypotension Scoliosis Historical No qualifying data Procedure/Surgical History EGD - Esophagogastroduodenoscopy, Tonsillectomy. Medications Cipro 500 mg Tab, 500 mg= 1 tab(s), Oral, q12hr Allergies No Known Allergies No Known Medication Allergies Social History Alcohol - Denies Alcohol Use, 02/12/2022 Never., 09/06/2024 Substance Abuse - Denies Substance Abuse, 02/12/2022 Never., 09/06/2024 Tobacco Never (less than 100 in lifetime) Tobacco Use:. Never Smokeless Tobacco Use:. Household tobacco concerns: No. Yes, 09/06/2024 Family History Anxiety: Mother. COPD: Mother. Depression: Father. Hypertension: Sister. Immunizations Vaccine Date Status Comments influenza virus vaccine, inactivated 08/03/2022 Recorded SARS-CoV-2 (COVID-19) mRNA BNT-162b2 vax 10/24/2021 Recorded influenza virus vaccine, inactivated 08/04/2021 Recorded influenza virus vaccine, inactivated 07/2021 Recorded SARS-CoV-2 (COVID-19) mRNA BNT-162b2 vax 04/24/2021 Recorded 2024-09-06: TPVAL SARS-CoV-2 (COVID-19) mRNA BNT-162b2 vax 04/07/2021 Recorded 2024-09-06: TPVAL influenza, unspecified formulation 09/13/2020 Recorded influenza virus vaccine, inactivated 06/24/2018 Recorded diphtheria/pertussis, acel/tetanus adult 03/20/2015 Recorded Lab Results Ambulatory Point of Care Results Bilirubin Urine Dipstick: 1+ Small (09/06/24 13:21:00) Blood Urine Dipstick: Negative (09/06/24 13:21:00) Glucose Urine Dipstick: Trace 100 mg/dl (09/06/24 13:21:00) Ketones Urine Dipstick: Trace - 5 mg/dl (09/06/24 13:21:00) Leukocytes Urine Dipstick: Negative (09/06/24 13:21:00) Nitrite Urine Dipstick: Positive (09/06/24 13:21:00) Protein Urine Dipstick: 2+ (100 mg/dl) (09/06/24 13:21:00) Specific [place] Urine Dipstick: 1.025 (09/06/24 13:21:00) Urine Appearance Urine Dipstick: Clear (09/06/24 13:21:00) Urine Color Urine Dipstick: [place] (09/06/24 13:21:00) Urobilinogen Urine Dipstick: 2 EU/dl (09/06/24 13:21:00) pH Urine Dipstick: 5.5 (09/06/24 13:21:00) Result Comment: Electronical ly Signed By: HAMMAD SUTTON CNP\.br\Date and Time Signed: 09/06/24 14:04 EDT AMBULATORY VISIT SUMMARY Observed: 09/06 1:31 PM Status: F Source: [facility] Ambulatory Visit Summary ZARA ROBISON Trae :1995 Visit Date:09/06/2024 Ambulatory Visit Instructions Your Diagnosis UTI symptoms Encounter to establish care Your Care Team Attending Physician - HAMMAD SUTTON CNP Primary Care Physician - Alla Beatty MD Procedures Performed EGD - Esophagogastroduodenoscopy, Tonsillectomy. Discharge Vitals Temperature (Oral) 36.8 ?C [...] you for choosing us for your care. C URINE Observed: 09/06/2024 1:28 PM Status: F Source: [facility] Microbiology PROCEDURE: Urine Culture [R1] SOURCE: U Random BODY SITE: COLLECTED DATE/TIME: 09/06/2024 13:28 EDT RECEIVED DATE/TIME: 09/06/2024 18:02 EDT START DATE/TIME: 09/06/2024 18:02 EDT FREE TEXT SOURCE: HAMMAD SUTTON CNP, CNP, SHELLY A FINAL REPORTS Final Report [] Verified Date/Time: 09/08/2024 11:00 EDT 2,000 cfu/ml Mixed skin contaminants Performing Locations R1: This test was performed at: [facility], [address] [place] [address], [facility]- , , Performed By: #### [id number] # ### [facility] [address] [place] [address] C URINE Observed: 09/06/2024 1:28 PM Status: F Source: [facility] Microbiology PROCEDURE: Urine Culture [R1] SOURCE: U Random BODY SITE: COLLECTED DATE/TIME: 09/06/2024 13:28 EDT RECEIVED DATE/TIME: 09/06/2024 18:02 EDT START DATE/TIME: 09/06/2024 18:02 EDT FREE TEXT SOURCE: HAMMAD SUTTON CNP, CNP, SHELLY A FINAL REPORTS Final Report [] Verified Date/Time: 09/08/2024 11:00 EDT 2,000 cfu/ml Mixed skin contaminants Performing Locations R1: This test was performed at: [facility], [address] [place] [address], [id number]- , , Performed By: #### [id number] # ### [facility] [address] [place] [address] ALLERGIES DATE TYPE / CODE NAME / CODE REACTION SEVERITY SOURCE [id number](SNOME D CT) penicillin [id number] [facility] [id number](SNOME D CT) No Known Allergies [facility] [id number](SNOME D CT) No Known Medication Allergies [facility] ENCOUNTERS ADMIT/DISCHARGE ACCOUNT NUMBER ADMITTING ENCOUNTER CLASS LOCATION SOURCE 08/01/2025/08/01/20 [id number] Ambulatory Building:NO MS BCP OB [facility] EPIC 07/20/2025/07/20/20 [id number] Ambulatory Building:NO MS BCP OB [facility] EPIC 04/12/2025/04/12/20 [id number] [facility] [place] [facility] 02/27/2025 [id number] [facility] [place] [facility] 02/22/2025 [id number] YUN SUTTON Ambulatory [facility] 02/22/2025/02/23/20 [id number] YUN SUTTON Ambulatory [facility] 02/22/2025/02/23/20 25 [id number] [place] [facility] [place] [place] m: CD:[id number] 75 [facility] 09/06/2024/09/06/20 24 [id number] YUN SUTTON Ambulatory [facility] 09/06/2024/09/06/20 24 [id number] [facility] [facility] [place] [place] m: CD:[id number] 75 [facility] 09/06/2024 [id number] Ambulatory [facility] PAYERS ENCOUNTER GUARANTOR PAYER SUBSCRIBER SOURCE 08/01/2025 ZARA ROBISONB: [place], [place] [address]Ofi: (HP) Primary Insurance:BCBSPoli cy Number: [id number] ctive Date:2023-11-16 ALLA ROBISONDOB: [id number] [place] [address] [facility] EPIC 07/20/2025 ZARA ROBISONDOB: [place], [place] [address]Nek: (HP) Primary Insurance:BCBSPoli cy Number: [id number] ctive Date:2023-11-16 ALLA ROBISONDOB: [id number] [address] [facility] EPIC 04/12/2025 ZARA Trae ENRIQUETADOB: UPPER [place]USKY HTSTel: ~ ~(41 (HP) Primary Insurance:AnthemPo licy Number: [id number] ctive Date:[id number] [address]FG: ALLAMALVIN CORDOVA [facility] 02/22/2025 ZARA Trae ROBISONDOB: UPPER [place]KY HTSTel: ~ ~(41 (HP) Primary Insurance:AnthemPo licy Number: [id number] ctive Date:4541-55-83GG [address] [place] [phone]: ALLA CORDOVA [facility] 02/22/2025 ZARA ROBISONDOB: UPPER SANDUSKY HTSTel: ~ ~(41 (HP) Primary Insurance:AnthemPo licy Number: [id number] ctive Date:2732-26-36[id number] [place] [phone]: ALLA Alina ENRIQUETA [facility] 02/22/2025 Secondary Insurance:SELF PAYPolicy Number: [id number] Date:2025-05-26 ZARA Trae [facility] 09/06/2024 ZARA CABRERA: UPPER SANDUSKY HTSTel: ~ ~(41 (HP) Primary Insurance:AnthemPo licy Number: [id number] ctive Date:9274-31-93LZ [id number] [place] [phone]: ALLA ENRIQUETA [facility] 09/06/2024 ZARA CABRERA: UPPER SANDUSKY HTSTel: ~ ~(41 (HP) Primary Insurance:AnthemPo licy Number: [id number] ctive Date:[id number] [id number] [place] [phone]: [facility]
--- OUTSIDE RECORDS SUMMARY | 2025-08-01 14:20 | XMS_ITS | Encounter Summary ---
Author Organization [facility] Address [address] [place] [address] Care Team Providers Care Manufacturing Recruiter Name Role Phone Unavailable Primary Care Provider Unavailabl e Reason for Visit * Reason Comments Pre-op Visit Encounter Details Date Type Department Care Team (Late st Contact Info) Description 08/01/2025 2:20 PM EDT Consult [facility] [address] [place] [phone] Power Cutler DO [address] [facility] [place] [address] Pre-op examination; Labial pain; Dyspareunia in female; Pelvic pain; Difficulty urinating Social History Tobacco Use Types Packs/Day Years [...] Sign Reading Time Taken Comments Blood Pressure 104/68 08/01/2025 2:38 PM EDT Pulse - - Temperature - - Respiratory Rate - - Oxygen Saturation - - Inhaled Oxygen Concentration - - Weight 59.4 kg (131 lb) 08/01/2025 2:38 PM EDT Height - - Body Mass Index 23.96 07/06/2023 8:57 AM EDT documented in this encounter Progress Notes * Power Cutler, DO - 08/01/2025 2:20 PM EDT Reason for Appointment: Patient ID: Zara Gao is a 30 y.o. female who presents for Pre-op Visit Patient presents today for Pre Op appointment. Patient is scheduled to undergo Labiaplasty on 08-25-[address] Cutler at [facility]. MEDICATIONS Current Outpatient Medications Medication Instructions albuterol [...] Active Ambulatory Problems Diagnosis Date Noted Surrogate ([facility]) 07/06/2023 Resolved Ambulatory Problems Diagnosis Date Noted [...] History: Procedure Laterality Date EGD 2019 TONSILLECTOMY 1997 REVIEW OF SYSTEMS Review of Systems: Review of Systems Constitutional: Negative. HENT: Negative. Eyes: Negative. Respiratory: Negative. Cardiovascular: Negative. Gastrointestinal: Negative. Genitourinary: Positive for difficulty urinating, dyspareunia and pelvic pain. Musculoskeletal: Negative. Skin: Negative. Neurological: Negative. [...] nursing note reviewed. Exam conducted with a manager international present. Vitals: Estimated body mass index is 23.98 kg/m?? as calculated from the following: Height as of 07/06/23: 5' 2 . Weight as of 07/20/25: 131 lb 1.9 oz. BP: Patient's last menstrual period was 06/28/2025. ASSESSMENT & PLAN ICD-10-CM 1. Pre-op examination Z01.818 2. Labial pain N94.89 3. Dyspareunia in female N94.10 4. Pelvic pain R10.2 5. Difficulty urinating R39.198 Pre Op: Patient is doing well but has complaints of labial pain, dyspareunia, pelvic pain and difficulty urinating. I have discussed conservative management vs. surgical management with the patient in detailand patient desires surgical management at this time. Patient will undergo Labiaplasty on 08-25-25.Surgical consents were signed, mmc was reviewed, and patient is to proceed to [facility] OR. Follow Up: Patient is to follow up one to two weeks postoperatively to assess proper healing and recovery fromprocedure. Documented by Bailey Gallegos LPN on behalf of: Power Cutler DO documented in this encounter Plan of Treatment Upcoming Encounters Date Type Department Care Team (Late st Contact Info) Description 09/07/2025 8:30 AM EDT Office Visit [facility] [address] [place] [address] Safia Avalos PA [address] [place] [address] documented as of this encounter Goals Goal Patient Goal Type Associated Problems Recent Progress Patient-Stated? Author Reminders Care Plan OB Reminders No Open Scheduling, Background documented as of this encounter Visit Diagnoses Diagnosis Pre-op examination Labial pain Unspecified symptom associated with female genital organs Dyspareunia in female Pelvic pain Difficulty urinating Other symptoms involving urinary system documented in this encounter Additional Health Concerns Active Problems Noted Date Diagnosed Date OB Reminders 12/09/2023 documented as of this encounter
--- OUTSIDE RECORDS SUMMARY | 2025-08-14 09:01 | XMS_ITS | Encounter Summary ---
Author Organization [facility] Address [address] [place] [place] [address] Care Team Providers Care Boiler Room Helper Name Role Phone Unavailable Primary Care Provider Unavailabl e Encounter Details Date Type Department Care Team (Late st Contact Info) Description 05/24/2024 Clinisync Result Encounter [facility] External Department Unsolicited Gonzales Cutler DO [address], [facility] Social History [...] Description 09/07/2025 8:30 AM EDT Office Visit [facility] [address] [place] [address] Safia Avalos PA [address] [place], [facility] documented as of this encounter Goals Goal [...] PM EDT Narrative 05/24/2024 2:43 [place] [address] Ultrasound Report Signed Patient: ZARA ROBISON MR#: [id number] : 1995 Acct:[id number] Age/Sex: 28 / F ADM Date: 05/24/24 Loc: US Attending Dr: Gonzales Cutler D.O. Ordering Physician: Gonzales Cutler D.O. Date of Service: 05/24/24 Procedure(s): US OB BPP w non-stress Accession Number(s): [id number] cc: Gonzales Cutler D.O.; Physician,Non-Staff M.DMegan The [address] [address] Patient Name: ZARA ROBISON MRN: [id number] date: 1995 Sex: F Assigned Patient Location: US Current Patient Location: Accession/Order Number: [id number] Exam Date: 05/24/2024 13:06 Report Date: 05/24/2024 [...] Signed By: 05/24/24 1443 DD/ 144 TD/TT: Doughnut Glazier: Procedure Note Radiology, Radiologist, MD - 05/24/2024 [place] [address] Ultrasound Report Signed Patient: ZARA ROBISON NMR#: [id number] : 1995Acct:[id number] Age/Sex: 28 / FADM Date: 05/24/24 Loc: US Attending Dr: Gonzales Cutler D.O. Ordering Physician: Gonzales Cutler D.O. Date of Service: 05/24/24 Procedure(s): US OB BPP w non-stress Accession Number(s): [id number] cc: Gonzales Cutler D.O.; Physician,Non-Staff [place] [facility] [place] [id number] Patient Name: ZARA ROBISON MRN: [id number] date: 1995 Sex: F Assigned Patient Location: US Current Patient Location: Accession/Order Number: [id number] Exam Date: 05/24/2024 13:06 Report Date: 05/24/2024 [...] M.D. Signed By:05/24/24 1443 DD/ 1441 TD/TT: Doughnut Glazier: us Gonzales Cutler DO [facility] Final Result documented in this encounter Visit Diagnoses Not on filedocumented in this encounter Additional Health Concerns Active Problems Noted Date Diagnosed Date OB Reminders 12/09/2023 documented as of this encounter
--- OUTSIDE RECORDS SUMMARY | 2025-08-14 09:01 | XMS_ITS | Encounter Summary ---
Author Organization [facility] Address [address] [place] [address] Care Team Providers Care Pressing Machine Operator Name Role Phone Unavailable Primary Care Provider Unavailabl e Encounter Details Date Type Department Care Team (Late st Contact Info) Description 05/10/2024 Clinisync Result Encounter NOMS External Department Unsolicited Gonzales Cutler DO [address] [place], [facility]11 Social History Tobacco Use Types [...] EDT Office Visit NOMSonja Liao OBGYN [address] [place] [address] Safia Avalos PA [address] [place], [facility]11 documented as of this encounter [...] PM EDT Narrative 05/10/2024 2:54 [place] [address] Ultrasound Report Signed Patient: ZARA ROBISON MR#: [id number] : 1995 Acct:[id number] Age/Sex: 28 / F ADM Date: 05/10/24 Loc: [facility] 250-[address]: Gonzales Cutler D.O. Ordering Physician: Gonzales Cutler D.O. Date of Service: 05/10/24 Procedure(s): US OB BPP w non-stress Accession Number(s): [id number] cc: Gonzales Cutler D.O.; Physician,Non-Staff M.DMegan The [place] [address] Patient Name: ZARA ROBISON MRN: [id number] date: 1995 Sex: F Assigned Patient Location: [facility] Current Patient Location: [facility] Accession/Order Number: [id number] Exam Date: 05/10/2024 14:12 Report Date: 05/10/2024 [...] M.D. Signed By: 05/10/241453 DD/ 50 TD/TT: Laboratory Cureman: Procedure Note Radiology, Radiologist, - 05/10/2024 [place] [address] Ultrasound Report Signed Patient: ZARA ROBISON NMR#: [id number] : 1995Acct:[id number] Age/Sex: 28 / FADM Date: 05/10/24 Loc: [facility] 250-[address]: Gonzales Cutler D.O. Ordering Physician: Gonzales Cutler D.O. Date of Service: 05/10/24 Procedure(s): US OB BPP w non-stress Accession Number(s): [id number] cc: Gonzales Cutler D.O.; Physician,Non-Staff Theron The [place] [address] Patient Name: ZARA ROBISON MRN: [id number] date: 1995 Sex: F Assigned Patient Location: [facility] Current Patient Location: [facility] Accession/Order Number: [id number] Exam Date: 05/10/2024 14:12 Report Date: 05/10/2024 [...] Modi M.D. Signed By:05/10/241453 DD/ 50 TD/TT: Laboratory Cureman: us Gonzales Cutler DO [facility] Final Result documented in this encounter Visit Diagnoses Not on filedocumented in this encounter Additional Health Concerns Active Problems Noted Date Diagnosed Date OB Reminders 12/09/2023 documented as of this encounter
--- OUTSIDE RECORDS SUMMARY | 2025-08-14 09:01 | XMS_ITS | Encounter Summary ---
Author Organization [facility] Address [address] [place] [address] Care Team Providers Care Drug Enforcement Agent Name Role Phone Unavailable Primary Care Provider Unavailabl e Encounter Details Date Type Department Care Team (Late Contact Info) Description 05/30/2024 Abstract NOMSonja TORRES [address] [place] [phone] Power Cutler DO [address] [place], [place] [address] Social History Tobacco Use Types Packs/Day Years [...] 09/07/2025 8:30 AM EDT Office Visit NOMSonja TORRES [address] [place] [address] Safia Avalos PA [address] [place], [facility]11 documented as of this encounter Goals Goal Patient Goal Type Associated Problems Recent Progress Patient-Stated? Author Reminders Care Plan OB Reminders No Open Scheduling, Background documented as of this encounter Visit Diagnoses Not on filedocumented in this encounter Additional Health Concerns Active Problems Noted Date Diagnosed Date OB Reminders 12/09/2023 documented as of this encounter
--- OUTSIDE RECORDS SUMMARY | 2025-08-14 09:01 | XMS_ITS | Clinical Summary ---
Author Organization [facility] Address [address], [address] [place] [address] Care Team Providers Care Tankroom Worker Name Role Phone None, None Primary Care [...] 2023 HPV (without or with Pap) 2023 DTaP/Tdap/Td vaccine (2 - Td or Tdap) 03/20/2025 03/20/2015 Flu vaccine (#1) 06/16/2025 08/03/2022, 08/04/2021, 06/24/2018 COVID-19 Vaccine (4 2024-2 6 season) 2025 10/24/2021, 04/24/2021, 04/07/2021 HPV vaccine (No Doses Required) Completed Hepatitis A vaccine Aged Out No longe [...] patient's age to complete this topic Insurance [place] BCBS Care Teams Tankroom Worker Relationship Specialty Start Date End Date None, None PCP - General 02/03/24
--- OUTSIDE RECORDS SUMMARY | 2025-08-14 09:01 | XMS_ITS | Encounter Summary ---
Author Organization [facility] Address [address] [place] [address] Care Team Providers Care Director Revenue Name Role Phone Unavailable Primary Care Provider Unavailabl e Encounter Details Date Type Department Care Team (Late st Contact Info) Description 05/29/2023 Abstract [facility]OMS Keshawn TORRES [address] [place] [address] Power Cutler DO [address] [place], [place] [address] Social History Tobacco Use Types Packs/Day Years [...] 8:30 AM EDT Office Visit NOMS Keshawn TORRES [address] [place] [address] Saifa Avalos PA [address] [place], [facility]11 documented as of this encounter Visit Diagnoses Not on filedocumented in this encounter
--- OUTSIDE RECORDS SUMMARY | 2025-08-14 09:01 | XMS_ITS | Encounter Summary ---
Author Organization [facility] Address [address] [place] [place] [address] Care Team Providers Care Enforcement Manager Name Role Phone Unavailable Primary Care Provider Unavailabl e Encounter Details Date Type Department Care Team (Late st Contact Info) Description 05/17/2024 Clinisync Result Encounter NOMS External Department Unsolicited Gonzales Cutler DO [address] [place], [facility]11 Social History Tobacco Use Types Packs/Day Years [...] EDT Office Visit NOMSonja Liao OBGYN [address] [place] [address] Safia Avalos PA [address] [facility] [address] [place], [facility]11 documented as of this encounter Goals Goal [...] PM EDT Narrative 05/17/2024 3:28 [place] [address] Ultrasound Report Signed Patient: ZARA ROBISON MR#: [id number] : 1995 Acct:[id number] Age/Sex: 28 / F ADM Date: 05/17/24 Loc: US Attending Dr: Gonzales Cutler D.O. Ordering Physician: Gonzales Cutler D.O. Date of Service: 05/17/24 Procedure(s): US OB BPP w non-stress Accession Number(s): [id number] cc: Gonzales Cutler D.O.; Physician,Non-Staff M.DMegan The [address] [address] Patient Name: ZARA ROBISON MRN: [id number] date: 1995 Sex: F Assigned Patient Location: US Current Patient Location: US Accession/Order Number: [id number] Exam Date: 05/17/2024 14:30 Report Date: 05/17/2024 [...] VILLANUEVA Date: 05/17/2024 15:25 Dictated By: Dale Villauneva M.D. Signed By: 05/17/24 1528 DD/ 152 TD/TT: Kindergarten Teacher: Procedure Note Radiology, Radiologist, - 05/17/2024 [place] [address] Ultrasound Report Signed Patient: ZARA ROBISON NMR#: [id number] : 1995Acct:[id number] Age/Sex: 28 / FADM Date: 05/17/24 Loc: US Attending Dr: Gonzales Cutler D.O. Ordering Physician: Gonzales Cutler D.O. Date of Service: 05/17/24 Procedure(s): US OB BPP w non-stress Accession Number(s): [id number] cc: Gonzales Cutler D.O.; Physician,Non-Staff Theron The [place] [address] Patient Name: ZARA ROBISON MRN: [id number] date: 1995 Sex: F Assigned Patient Location: US Current Patient Location: US Accession/Order Number: [id number] Exam Date: 05/17/2024 14:30 Report Date: 05/17/2024 [...] VILLANUEVA Date: 05/17/2024 15:25 Dictated By: Dale Vilalnueva M.D. Signed By:05/17/24 1528 DD/ 1525 TD/TT: Kindergarten Teacher: us Gonzales Cutler DO [facility] Final Result documented in this encounter Visit Diagnoses Not on filedocumented in this encounter Additional Health Concerns Active Problems Noted Date Diagnosed Date OB Reminders 12/09/2023 documented as of this encounter
--- OUTSIDE RECORDS SUMMARY | 2025-08-14 09:01 | XMS_ITS | Clinical Summary ---
Author Organization [facility] Address [id number] [address] [place] [address] Care Team Providers Care Valve Fitter Name Role Phone Alan Beatty MD Primary Care Provider [phone] Allergies No known active allergies Medications vit,calc76/iron [...] Moser, Dr. Mendoza, Dr. Villarreal, Fartun Neil [facility], nAna De León GSA COORDINATOR, Jaelyn Carson [facility], Delmy Christian [facility], Safia Rasheed- Lead mortgage loan processing clerk, Esther Dimas RN, and Sugar Shah RN, The following recommendations were made: No NICU needed at this time; Need to re-evaluate and follow-up at [facility]; no formal dx on cystic structure; no [...] 07/17/2025 Medical Devices Not on file Insurance [facility] MEDICAID Care Teams Valve Fitter Relationship Specialty Start Date End Date Alan Beatty MD PCP - General Family Medicine 09/16/19
--- OUTSIDE RECORDS SUMMARY | 2025-08-14 09:01 | XMS_ITS | Patient Health Record ---
Author Organization Count Includes The [facility] vices Address [address] [place], [place] [id number] Care Team Providers Care Cable Television Access Coordinator Name Role Phone Wesley Franks Primary Care [...] Coverage End Date [employer] [address] [place], [place] [id number] Alan Gao Spouse - patient is the spouse of the insured 3 Medical (General) History Medical History History ICD Code Asthma J45.909 Surgical History Surgery Date(Month/Year) Tonsillectomy 1997 Endoscopy 2018
--- OUTSIDE RECORDS SUMMARY | 2025-08-14 09:01 | XMS_ITS | Encounter Summary ---
Author Organization [facility] Address [address] [place] [address] Care Team Providers Care Bingo Floater Name Role Phone Unavailable Primary Care Provider Unavailabl e Encounter Details Date Type Department Care Team (Late st Contact Info) Description 05/27/2024 Clinisync Result Encounter NOMS External Department Unsolicited Gonzales Cutler DO [address] [place] [address] [place], [facility]11 Social History Tobacco Use Types Packs/Day [...] EDT Office Visit NOMSonja Liao OBGYN [address] [place] [address] Safia Avalos PA [address] [place], [facility]11 documented as of this encounter Goals [...] PM EDT Narrative 05/27/2024 4:15 [place] [address] Ultrasound Report Signed Patient: ZARA ROBISON MR#: [id number] : 1995 Acct:[id number] Age/Sex: 28 / F ADM Date: 05/27/24 Loc: [facility] Attending Dr: Gonzales Cutler D.O. Ordering Physician: Gonzales Cutler D.O. Date of Service: 05/27/24 Procedure(s): US OB BPP w non-stress Accession Number(s): [id number] cc: Gonzales Cutler D.O.; Physician,Non-Staff M.DMegan [address] [address] Patient Name: ZARA ROBISON MRN: [id number] date: 1995 Sex: F Assigned Patient Location: [facility] Current Patient Location: Accession/Order Number: [id number] Exam Date: 05/27/2024 15:30 Report Date: 05/27/2024 [...] By: Lina Modi M.D. Signed By: 05/27/24 161 DD/ 11 TD/TT: Regulation Supervisor: Procedure Note Radiology, Radiologist, - 05/27/2024 [place] [address] Ultrasound Report Signed Patient: ZARA ROBISON NMR#: [id number] : 1995Acct:[id number] Age/Sex: 28 / FADM Date: 05/27/24 Loc: [facility] Attending Dr: Gonzales Cutler D.O. Ordering Physician: Gonzales Cutler D.O. Date of Service: 05/27/24 Procedure(s): US OB BPP w non-stress Accession Number(s): [id number] cc: Gonzales Cutler D.O.; Physician,Non-Staff Theron The [place] [id number] Patient Name: ZARA ROBISON MRN: [id number] date: 1995 Sex: F Assigned Patient Location: [facility] Current Patient Location: Accession/Order Number: [id number] Exam Date: 05/27/2024 15:30 Report Date: 05/27/2024 [...] Lina Modi M.D. Signed By:05/27/24 1615 DD/ 11 TD/TT: Regulation Supervisor: Gonzales Cutler DO [facility] Final Result documented in this encounter Visit Diagnoses Not on filedocumented in this encounter Additional Health Concerns Active Problems Noted Date Diagnosed Date OB Reminders 12/09/2023 documented as of this encounter
--- OUTSIDE RECORDS SUMMARY | 2025-08-14 09:01 | XMS_ITS | Encounter Summary ---
Author Organization [facility] Address [address] [place] [address] Care Team Providers Care Blocker Hand Name Role Phone Unavailable Primary Care Provider Unavailabl e Encounter Details Date Type Department Care Team (Late st Contact Info) Description 01/11/2024 Clinisync Result Encounter NOMS External Department Unsolicited Gonzales Cutler DO [address] [place] [address], [facility]11 Social History Tobacco Use Types Packs/Day [...] EDT Office Visit NOMSonja Liao OBGYN [address] [place] [address] Safia Avalos PA [address] [place], [facility]11 documented as of this encounter Goals [...] PM EST Narrative 01/11/2024 3:24 [place] [address] Ultrasound Report Signed Patient: ZARA ROBISON MR#: [id number] : 1995 Acct:[id number] Age/Sex: 28 / F ADM Date: 01/11/24 Loc: US Attending Dr: Gonzales Cutler D.O. Ordering Physician: Gonzales Cutler D.O. Date of Service: 01/11/24 Procedure(s): US OB growth Accession Number(s): [id number] cc: Gonzales Cutler D.O.; YANG EMANUEL M.D. The [place] [address] Patient Name: ZARA ROBISON MRN: [id number] date: 1995 Sex: F Assigned Patient Location: Current Patient Location: US Accession/Order Number: [id number] Exam Date: 01/11/2024 14:50 Report Date: 01/11/2024 [...] Dictated By: Lina Modi M.D. Signed By: 01/11/241523 DD/ 21 TD/TT: Electronic Engineering Draftsperson: Procedure Note Radiology, Radiologist, MD - 01/20/2024 [place] [address] Ultrasound Report Signed Patient: ZARA ROBISON NMR#: [id number] : 1995Acct:[id number] Age/Sex: 28 / FADM Date: 01/11/24 Loc: US Attending Dr: Gonzales Culter D.O. Ordering Physician: Gonzales Cutler D.O. Date of Service: 01/11/24 Procedure(s): US OB growth Accession Number(s): [id number] cc: Gonzales Cutler D.O.; YANG EMANUEL M.D. The [place] [address] Patient Name: ZARA ROBISON MRN: [id number] date: 1995 Sex: F Assigned Patient Location: US Current Patient Location: US Accession/Order Number: [id number] Exam Date: 01/11/2024 14:50 Report Date: 01/11/2024 [...] M.D. Signed By:01/11/24 1524 DD/ 1522 TD/TT: Electronic Engineering Draftsperson: us Gonzales Murciao DO [facility] Final Result documented in this encounter Visit Diagnoses Not on filedocumented in this encounter Additional Health Concerns Active Problems Noted Date Diagnosed Date OB Reminders 12/09/2023 documented as of this encounter
--- OUTSIDE RECORDS SUMMARY | 2025-08-14 09:01 | XMS_ITS | Encounter Summary ---
Author Organization [facility] Address [address] [place] [address] Care Team Providers Care Petrographer Name Role Phone Unavailable Primary Care Provider Unavailabl e Encounter Details Date Type Department Care Team (Late st Contact Info) Description 05/27/2024 Clinisync Result Encounter NOMS External Department Unsolicited Gonzales Cutler DO [address] [place] [address], [facility]11 Social History Tobacco Use Types [...] EDT Office Visit NOMSonja Liao OBGYN [address] [place] [address] Safia Avalos PA [address] [place], [facility]11 documented as of this encounter Goals Goal [...] PM EDT Narrative 05/27/2024 4:20 [place] [address] Ultrasound Report Signed Patient: ZARA ROBISON MR#: [id number] : 1995 Acct:[id number] Age/Sex: 28 / F ADM Date: 05/27/24 Loc: [facility] Attending Dr: Gonzales Cutler D.O. Ordering Physician: Gonzales Cutler D.O. Date of Service: 05/27/24 Procedure(s): US OB umbilical artery Accession Number(s): [id number] cc: Gonzales Cutler D.O.; Physician,Non-Staff M.D. [place] [address] Patient Name: ZARA ROBISON MRN: [id number] date: 1995 Sex: F Assigned Patient Location: [facility] Current Patient Location: [facility] Accession/Order Number: [id number] Exam Date: 05/27/2024 15:30 Report Date: 05/27/2024 [...] Signed By: 05/27/24 1620 DD/ 1617 TD/TT: [employer] Worker: Procedure Note Radiology, Radiologist, MD - 05/27/2024 [place] [address] Ultrasound Report Signed Patient: ZARA ROBISON NMR#: [id number] : 1995Acct:[id number] Age/Sex: 28 / FADM Date: 05/27/24 Loc: [facility] Attending Dr: Gonzales Cutler D.O. Ordering Physician: Gonzales Cutler D.O. Date of Service: 05/27/24 Procedure(s): US OB umbilical artery Accession Number(s): [id number] cc: Gonzales Cutler D.O.; Physician,Non-Staff Theron The [place] [id number] Patient Name: ZARA ROBISON MRN: [id number] date: 1995 Sex: F Assigned Patient Location: [facility] Current Patient Location: [facility] Accession/Order Number: [id number] Exam Date: 05/27/2024 15:30 Report Date: 05/27/2024 [...] MODI Date: 05/27/2024 16:17 Dictated By: Lina Mdoi M.D. Signed By:05/27/24 1620 DD/ 1617 TD/TT: [employer] Worker: us Gonzales Cutler DO IMG XR PROCEDURES Final Result documented in this encounter Visit Diagnoses Not on filedocumented in this encounter Additional Health Concerns Active Problems Noted Date Diagnosed Date OB Reminders 12/09/2023 documented as of this encounter
--- OUTSIDE RECORDS SUMMARY | 2025-08-14 09:01 | XMS_ITS | Encounter Summary ---
Author Organization [facility] Address [address] [place] [address] Care Team Providers Care Senior Reservations Agent Name Role Phone Unavailable Primary Care Provider Unavailabl e Encounter Details Date Type Department Care Team (Late st Contact Info) Description 12/14/2023 Clinisync Result Encounter NOMS External Department Unsolicited Gonzales Cutler DO [address] [place] [address] [place], [facility]11 Social History [...] EDT Office Visit NOMSonja Liao OBGYN [address] [place] [address] Safia Avalos PA [address] [place], [facility]11 documented [...] PM EST Narrative 12/14/2023 5:14 [place] [address] Ultrasound Report Signed Patient: ZARA ROBISON MR#: [id number] : 1995 Acct:[id number] Age/Sex: 28 / F ADM Date: 12/14/23 Loc: US Attending Dr: Gonzales Cutler D.O. Ordering Physician: Gonzales Cutler D.O. Date of Service: 12/14/23 Procedure(s): US OB growth Accession Number(s): [id number] cc: Gonzales Cutler D.O.; YANG EMANUEL M.D. The [place] [address] Patient Name: ZARA ROBISON MRN: [id number] date: 1995 Sex: F Assigned Patient Location: US Current Patient Location: US Accession/Order Number: [id number] Exam Date: 12/14/2023 15:40 Report Date: 12/14/2023 [...] M.D. Signed By: 12/14/231713 DD/ 10 TD/TT: Animal Cruelty Investigator: Procedure Note Radiology, Radiologist, - 12/14/2023 [place] [address] Ultrasound Report Signed Patient: ZARA ROBISON NMR#: [id number] : 1995Acct:[id number] Age/Sex: 28 / FADM Date: 12/14/23 Loc: US Attending Dr: Gonzales Cutler D.O. Ordering Physician: Gonzales Cutler D.O. Date of Service: 12/14/23 Procedure(s): US OB growth Accession Number(s): [id number] cc: Gonzales Cutler D.O.; YANG EMANUEL M.D. The [place] [address] Patient Name: ZARA ROBISON MRN: [id number] date: 1995 Sex: F Assigned Patient Location: US Current Patient Location: US Accession/Order Number: [id number] Exam Date: 12/14/2023 15:40 Report Date: 12/14/2023 [...] August 16, 2007. Electronically authenticated by: LINA MOID Date: 12/14/2023 17:11 Dictated By: Lina Modi M.D. Signed By:12/14/231713 DD/ 10 TD/TT: Animal Cruelty Investigator: us Gonzales Omayra DO [facility] Final Result documented in this encounter Visit Diagnoses Not on filedocumented in this encounter Additional Health Concerns Active Problems Noted Date Diagnosed Date OB Reminders 12/09/2023 documented as of this encounter
--- OUTSIDE RECORDS SUMMARY | 2025-08-14 09:01 | XMS_ITS | Encounter Summary ---
Author Organization [facility] Address [address] [place] [address] Care Team Providers Care Transportation Escort Name Role Phone Unavailable Primary Care Provider Unavailabl e Encounter Details Date Type Department Care Team (Late st Contact Info) Description 05/27/2024 Clinisync Result Encounter NOMS External Department Unsolicited Gonzales Cutler DO [address] [place] [address] [place], [facility]11 Social History Tobacco Use Types Packs/Day [...] EDT Office Visit NOMSonja Liao OBGYN [address] [place] [address] Safia Avalos PA [address] [place], [facility]11 documented as of this encounter Goals [...] PM EDT Narrative 05/27/2024 4:18 [place] [address] Ultrasound Report Signed Patient: ZARA ROBISON MR#: [id number] : 1995 Acct:[id number] Age/Sex: 28 / F ADM Date: 05/27/24 Loc: [facility] Attending Dr: Gonzales Cutler D.O. Ordering Physician: Gonzales Cutler D.O. Date of Service: 05/27/24 Procedure(s): US OB growth Accession Number(s): [id number] cc: Gonzales Cutler D.O.; Physician,Non-Staff M.DMegan The [place] [address] Patient Name: ZARA ROBISON MRN: [id number] date: 1995 Sex: F Assigned Patient Location: [facility] Current Patient Location: [facility] Accession/Order Number: [id number] Exam Date: 05/27/2024 15:30 Report Date: 05/27/2024 [...] M.D. Signed By: 05/27/248 DD/ 14 TD/TT: Vibrating Screed Operator: Procedure Note Radiology, Radiologist, MD - 05/27/2024 [place] [address] Ultrasound Report Signed Patient: ZARA ROBISON NMR#: [id number] : 1995Acct:[id number] Age/Sex: 28 / FADM Date: 05/27/24 Loc: [facility]O Attending Dr: Gonzales Cutler D.O. Ordering Physician: Gonzales Cutler D.O. Date of Service: 05/27/24 Procedure(s): US OB growth Accession Number(s): [id number] cc: Gonzales Cutler D.O.; Physician,Non-Staff Theron The [place] [id number] Patient Name: ZARA ROBISON MRN: [id number] date: 1995 Sex: F Assigned Patient Location: [facility] Current Patient Location: [facility] Accession/Order Number: [id number] Exam Date: 05/27/2024 15:30 Report Date: 05/27/2024 [...] M.D. Signed By:05/27/24 1618 DD/ 1615 TD/TT: Vibrating Screed Operator: us Gonzales Omayra DO [facility] Final Result documented in this encounter Visit Diagnoses Not on filedocumented in this encounter Additional Health Concerns Active Problems Noted Date Diagnosed Date OB Reminders 12/09/2023 documented as of this encounter
--- OUTSIDE RECORDS SUMMARY | 2025-08-14 09:02 | XMS_ITS | Encounter Summary ---
Author Organization [facility] Address [address] [place] [address] Care Team Providers Care Wharf Labourer Name Role Phone Unavailable Primary Care Provider Unavailabl e Encounter Details Date Type Department Care Team (Late st Contact Info) Description 05/06/2024 Clinisync Result Encounter [facility] External Department Unsolicited Gonzales Cutler DO [address] [place], [facility]11 Social History Tobacco Use Types Packs/Day Years [...] EDT Office Visit [facility] [address] [place] [phone] Safia Avalos PA [address] [facility] [address] [place], [facility]11 documented as of this encounter Goals Goal [...] PM EDT Narrative 05/06/2024 4:45 [place] [address] Ultrasound Report Signed Patient: ZARA ROBISON MR#: [id number] : 1995 Acct:[id number] Age/Sex: 28 / F ADM Date: 05/06/24 Loc: LAB Attending Dr: Gonzales Cutler D.O. Ordering Physician: Gonzaels Cutler D.O. Date of Service: 05/06/24 Procedure(s): US OB BPP w non-stress Accession Number(s): [id number] cc: Gonzales Cutler D.O.; Physician,Non-Staff M.Ahmet [address] [address] Patient Name: ZARA ROBISON MRN: [id number] date: 1995 Sex: F Assigned Patient Location: [facility] Current Patient Location: Accession/Order Number: [id number] Exam Date: 05/06/2024 15:29 Report Date: 05/06/2024 [...] M.D. Signed By: 05/06/241644 DD/ 41 TD/TT: Staffing Assistant: Procedure Note Radiology, Radiologist, MD - 05/06/2024 [place] [address] Ultrasound Report Signed Patient: ZARA ROBISON NMR#: [id number] : 1995Acct:[id number] Age/Sex: 28 / FADM Date: 05/06/24 Loc: LAB Attending Dr: Gonzales Cutler D.O. Ordering Physician: Gonzales Cutler D.O. Date of Service: 05/06/24 Procedure(s): US OB BPP w non-stress Accession Number(s): [id number] cc: Gonzales Cutler D.O.; Physician,Non-Staff Theron The [place] [address] Patient Name: ZARA ROBISON MRN: [id number] date: 1995 Sex: F Assigned Patient Location: [facility] Current Patient Location: Accession/Order Number: [id number] Exam Date: 05/06/2024 15:29 Report Date: 05/06/2024 [...] FINDINGS: Single live intrauterine seen with heart [id number] bpm. Biophysical profile: breathin body movements: 2 [...] 16:42 Dictated By: Mary Campbell M.D. Signed By:05/06/245 DD/ 41 TD/TT: Staffing Assistant: us Gonzales Omayra DO [facility] Final Result documented in this encounter Visit Diagnoses Not on filedocumented in this encounter Additional Health Concerns Active Problems Noted Date Diagnosed Date OB Reminders 12/09/2023 documented as of this encounter
--- OUTSIDE RECORDS SUMMARY | 2025-08-14 09:02 | XMS_ITS | Encounter Summary ---
Author Organization [facility] Address [address] [place] [address] Care Team Providers Care Industrial Hygenist Name Role Phone Unavailable Primary Care Provider Unavailabl e Encounter Details Date Type Department Care Team (Late Contact Info) Description 05/31/2024 Abstract N[facility]ja TORRES [address] [facility] [place] [address] Teagan Mello LPN [address] [facility] [address], [place] [address] Social History Tobacco Use Types Packs/Day Years [...] AM EDT Office Visit NOMSonja TORRES [address] [facility] [place] [address] Safia Avalos PA [address] [facility] [address] [place], [facility] [...]
--- OUTSIDE RECORDS SUMMARY | 2025-08-14 09:02 | XMS_ITS | Clinical Summary ---
Author Organization [facility] Address [address] [place] [address] Care Team Providers Care Wheel Truing Machine Tender Name Role Phone Unavailable Primary Care [...]
--- OUTSIDE RECORDS SUMMARY | 2025-08-14 09:02 | XMS_ITS | Encounter Summary ---
Author Organization [facility] Address [address] [place] [address] Care Team Providers Care 2Nd Grade Teacher Name Role Phone Unavailable Primary Care Provider Unavailabl e Encounter Details Date Type Department Care Team (Late st Contact Info) Description 05/04/2024 Clinisync Result Encounter [facility] External Department Unsolicited Gonzales Cutler DO [address] [place], [facility]11 Social History Tobacco Use Types Packs/Day [...] EDT Office Visit [facility] OBGYN [address] [place] [phone] Safia Avalos PA [address] [facility] [address] [place], [facility]11 documented as of this encounter Goals Goal [...] AM EDT Narrative 05/04/2024 7:00 [place] [address] Ultrasound Report Signed Patient: ZARA ROBISON MR#: [id number] : 1995 Acct:[id number] Age/Sex: 28 / F ADM Date: 05/03/24 Loc: US Attending Dr: Gonzales Cutler D.O. Ordering Physician: Gonzales Cutler D.O. Date of Service: 05/03/24 Procedure(s): US OB growth Accession Number(s): [id number] cc: Gonzales Cutler D.O.; Physician,Non-Staff M.D. The [place] [address] Patient Name: ZARA ROBISON MRN: [id number] date: 1995 Sex: F Assigned Patient Location: US Current Patient Location: Accession/Order Number: [id number] Exam Date: 05/03/2024 14:48 Report Date: 05/04/2024 [...] Villanueva M.D. Signed By: 05/04/24 0700 DD/ TD/TT: Debarker Operator: Procedure Note Radiology, Radiologist, MD - 05/04/2024 [place] [address] Ultrasound Report Signed Patient: ZARA ROBISON NMR#: [id number] : 1995Acct:[id number] Age/Sex: 28 / FADM Date: 05/03/24 Loc: US Attending Dr: Gonzales Cutler D.O. Ordering Physician: Gonzales Cutler D.O. Date of Service: 05/03/24 Procedure(s): US OB growth Accession Number(s): [id number] cc: Gonzales Cutler D.O.; Physician,Non-Staff Theron The [place] [address] Patient Name: ZARA ROBISON MRN: [id number] date: 1995 Sex: F Assigned Patient Location: US Current Patient Location: US Accession/Order Number: [id number] Exam Date: 05/03/2024 14:48 Report Date: 05/04/2024 [...] M.D. Signed By:05/04/24 0700 DD/ 0658 TD/TT: Debarker Operator: us Gonzales Omayra DO [facility] Final Result documented in this encounter Visit Diagnoses Not on filedocumented in this encounter Additional Health Concerns Active Problems Noted Date Diagnosed Date OB Reminders 12/09/2023 documented as of this encounter
--- OUTSIDE RECORDS SUMMARY | 2025-08-14 09:02 | XMS_ITS | Encounter Summary ---
Author Organization [facility] Address [address] [place] [address] Care Team Providers Care Assembly Line Worker Name Role Phone Unavailable Primary Care Provider Unavailabl e Encounter Details Date Type Department Care Team (Late Contact Info) Description 04/18/2024 Abstract NOM[facility]ja TORRES [address] [facility] [place] [address] Teagan Mello LPN 102 [facility] [address] [place], [place] [address] Social History Tobacco Use Types Packs/Day Years [...] AM EDT Office Visit NOMSonja TORRES [address] [facility] [place] [address] Safia Avalos PA [address] [facility] [address] [place], [facility]11 documented as of this encounter Goals Goal Patient Goal Type Associated Problems Recent Progress Patient-Stated? Author Reminders Care Plan OB Reminders No Open Scheduling, Background documented as of this encounter Visit Diagnoses Not on filedocumented in this encounter Additional Health Concerns Active Problems Noted Date Diagnosed Date OB Reminders 12/09/2023 documented as of this encounter
--- OUTSIDE RECORDS SUMMARY | 2025-08-14 09:02 | XMS_ITS | Encounter Summary ---
Author Organization [facility] Address [address] [place] [address] Care Team Providers Care Fisher Eel Name Role Phone Unavailable Primary Care Provider Unavailabl e Encounter Details Date Type Department Care Team (Late Contact Info) Description 06/02/2024 Abstract NOMSonja TORRES [address] [facility] [place] [phone] Power Cutler DO [address] [facility] [address] [place], [place] [address] Social History Tobacco Use Types Packs/Day Years [...] AM EDT Office Visit NOMSonja TORRES [address] [facility] [place] [address] Safia Avalos PA [address] [facility] [address] [place], [facility]11 documented as of this encounter Goals Goal Patient Goal Type Associated Problems Recent Progress Patient-Stated? Author Reminders Care Plan OB Reminders No Open Scheduling, Background documented as of this encounter Visit Diagnoses Not on filedocumented in this encounter Additional Health Concerns Active Problems Noted Date Diagnosed Date OB Reminders 12/09/2023 documented as of this encounter
--- OUTSIDE RECORDS SUMMARY | 2025-08-14 09:02 | XMS_ITS | Encounter Summary ---
Author Organization [facility] Address [address] [place] [address] Care Team Providers Care Injury Prevention Coordinator Name Role Phone Unavailable Primary Care Provider Unavailabl e Encounter Details Date Type Department Care Team (Late Contact Info) Description 04/12/2024 Abstract NOMSonja TORRES [address] [place] [phone] Power Cutler DO [address] [facility] [address] [place], [place] [address] Social History Tobacco Use Types Packs/Day Years [...] Encounters Date Type Department Care Team (Late Contact Info) Description 09/07/2025 8:30 AM EDT Office Visit NOMSonja TORRES [address] [place] [address] Safia Avalos PA [address] [facility] [address] [place], [facility] documented as of this encounter Goals Goal Patient Goal Type Associated Problems Recent Progress Patient-Stated? Author Reminders Care Plan OB Reminders No Open Scheduling, Background documented as of this encounter Visit Diagnoses Not on filedocumented in this encounter Additional Health Concerns Active Problems Noted Date Diagnosed Date OB Reminders 12/09/2023 documented as of this encounter
--- OUTSIDE RECORDS SUMMARY | 2025-08-14 09:02 | XMS_ITS | Encounter Summary ---
Author Organization [facility] Address [address] [place] [address] Care Team Providers Care Pump Installer Name Role Phone Unavailable Primary Care Provider Unavailabl e Encounter Details Date Type Department Care Team (Late Contact Info) Description 04/13/2024 Abstract NOMSonja TORRES [address] [facility] [place] [phone] Power Cutler DO [address] [facility] [address] [place] [place], [place] [address] Social History Tobacco Use Types Packs/Day Years [...] AM EDT Office Visit NOMSonja TORRES [address] [facility] [place] [address] Safia Avalos PA [address] [facility] [address] [place], [place] [address] documented as of this encounter Goals Goal Patient Goal Type Associated Problems Recent Progress Patient-Stated? Author Reminders Care Plan OB Reminders No Open Scheduling, Background documented as of this encounter Visit Diagnoses Not on filedocumented in this encounter Additional Health Concerns Active Problems Noted Date Diagnosed Date OB Reminders 12/09/2023 documented as of this encounter
--- OUTSIDE RECORDS SUMMARY | 2025-08-14 09:02 | XMS_ITS | Encounter Summary ---
Author Organization [facility] Address [address] [place] [address] Care Team Providers Care Convention Services Director Name Role Phone Unavailable Primary Care Provider Unavailabl e Encounter Details Date Type Department Care Team (Late Contact Info) Description 07/24/2025 Orders Only NOMSonja TORRES [address] [facility] [place] [phone] Doreen Petit MA [address] [facility] [place] [address] Social History Tobacco Use Types Packs/Day Years [...] EDT Office Visit [facility]S Keshawn TORRES [address] [facility] [place] [phone] Safia Avalos PA [address] [facility] [address] [place], [place] [id number] documented as of this encounter Goals Goal Patient Goal Type Associated Problems Recent Progress Patient-Stated? Author Reminders Care Plan OB Reminders No Open Scheduling, Background documented as of this encounter Procedures Procedure Name Priority Date/Time Associated Diagnosis Comments PAP SMEAR Routine 07/20/2025 12:00 AM EDT documented in this encounter Results * Pap Smear (07/20/2025 12:00 AM EDT) Swab Cervical swab / Unknown us Cherie Callahan NP LAB CYTOLOGY ORDERABLES Final Result EXTERNAL LAB documented in this encounter Visit Diagnoses Not on filedocumented in this encounter Additional Health Concerns Active Problems Noted Date Diagnosed Date OB Reminders 12/09/2023 documented as of this encounter
--- OUTSIDE RECORDS SUMMARY | 2025-08-14 09:02 | XMS_ITS | Encounter Summary ---
Author Organization [facility] Address [address] [place] [address] Care Team Providers Care Wastewater Treatment Engineer Name Role Phone Unavailable Primary Care Provider Unavailabl e Encounter Details Date Type Department Care Team (Late st Contact Info) Description 05/31/2024 Clinisync Result Encounter [facility]S External Department Unsolicited Gonzales Cutler DO [address] [place], [facility]11 Social History Tobacco Use Types Packs/Day [...] EDT Office Visit [facility]ja Liao OBGYN [address] [place] [address] Safia Avalos PA [address] [facility] [address] [place], [facility]11 documented as of this encounter Goals [...] PM EDT Narrative 05/31/2024 3:14 [place] [address] Ultrasound Report Signed Patient: ZARA ROBISON MR#: [id number] : 1995 Acct:[id number] Age/Sex: 28 / F ADM Date: 05/31/24 Loc: [facility] 250-[address]: Gonzales Cutler D.O. Ordering Physician: Gonzales Cutler D.O. Date of Service: 05/31/24 Procedure(s): US OB BPP w non-stress Accession Number(s): [id number] cc: Gonzales Cutler D.O.; Physician,Non-Staff M.DMegan The [place] [id number] Patient Name: ZARA ROBISON MRN: [id number] date: 1995 Sex: F Assigned Patient Location: [facility] Current Patient Location: [facility] Accession/Order Number: [id number] Exam Date: 05/31/2024 14:48 Report Date: 05/31/2024 [...] M.D. Signed By: 05/31/241513 DD/ 10 TD/TT: Energy Analyst: Procedure Note Radiology, Radiologist, - 05/31/2024 [place] [address] Ultrasound Report Signed Patient: ZARA ROBISON NMR#: [id number] : 1995Acct:[id number] Age/Sex: 28 / FADM Date: 05/31/24 Loc: [facility] 250-[address]: Gonzales Cutler D.O. Ordering Physician: Gonzales Cutler D.O. Date of Service: 05/31/24 Procedure(s): US OB BPP w non-stress Accession Number(s): [id number] cc: Gonzales Cutler D.O.; Physician,Non-Staff Theron The [place] [address] Patient Name: ZARA ROBISON MRN: [id number] date: 1995 Sex: F Assigned Patient Location: [facility] Current Patient Location: [facility] Accession/Order Number: [id number] Exam Date: 05/31/2024 14:48 Report Date: 05/31/2024 [...] LINA MODI Date: 05/31/2024 15:11 Dictated By: Lnia Modi M.D. Signed By:05/31/241513 DD/ TD/TT: Energy Analyst: us Gonzales Cutler DO [facility] Final Result documented in this encounter Visit Diagnoses Not on filedocumented in this encounter Additional Health Concerns Active Problems Noted Date Diagnosed Date OB Reminders 12/09/2023 documented as of this encounter
--- OUTSIDE RECORDS SUMMARY | 2025-08-14 09:02 | XMS_ITS | Encounter Summary ---
Author Organization [facility] Address [address] [place] [address] Care Team Providers Care Revolving Field Assembler Name Role Phone Unavailable Primary Care Provider Unavailabl e Encounter Details Date Type Department Care Team (Late st Contact Info) Description 05/04/2024 Clinisync Result Encounter NOMS External Department Unsolicited Gonzales Cutler DO [address] [place], [facility]11 Social History Tobacco Use Types [...] EDT Office Visit [facility]Sonja Liao OBGYN [address] [place] [address] Safia Avalos PA [address] [facility] [address] [place], [facility]11 documented as of this encounter [...] AM EDT Narrative 05/04/2024 6:55 [place] [address] Ultrasound Report Signed Patient: ZARA ROBISON MR#: [id number] : 1995 Acct:[id number] Age/Sex: 28 / F ADM Date: 05/03/24 Loc: US Attending Dr: Gonzales Cutler D.O. Ordering Physician: Gonzales Cutler D.O. Date of Service: 05/03/24 Procedure(s): US OB BPP w non-stress Accession Number(s): [id number] cc: Gonzales Cutler D.O.; Physician,Non-Staff M.DMegan The [address] [address] Patient Name: ZARA ROBISON MRN: [id number] date: 1995 Sex: F Assigned Patient Location: US Current Patient Location: LAB Accession/Order Number: [id number] Exam Date: 05/03/2024 14:48 Report Date: 05/04/2024 [...] M.D. Signed By: 05/04/24 0655 DD/ TD/TT: Berry Planter: Procedure Note Radiology, Radiologist, MD - 05/04/2024 [place] [address] Ultrasound Report Signed Patient: ZARA ROBISON NMR#: [id number] : 1995Acct:[id number] Age/Sex: 28 / FADM Date: 05/03/24 Loc: US Attending Dr: Gonzales Cutler D.O. Ordering Physician: Gonzales Cutler D.O. Date of Service: 05/03/24 Procedure(s): US OB BPP w non-stress Accession Number(s): [id number] cc: Gonzales Cutler D.O.; Physician,Non-Staff Theron The [place] [id number] Patient Name: ZARA ROBISON MRN: [id number] date: 1995 Sex: F Assigned Patient Location: US Current Patient Location: LAB Accession/Order Number: [id number] Exam Date: 05/03/2024 14:48 Report Date: 05/04/2024 [...] M.D. Signed By:05/04/24 0655 DD/ 0653 TD/TT: Berry Planter: us Gonzales Cutler DO [facility] Final Result documented in this encounter Visit Diagnoses Not on filedocumented in this encounter Additional Health Concerns Active Problems Noted Date Diagnosed Date OB Reminders 12/09/2023 documented as of this encounter
--- OUTSIDE RECORDS SUMMARY | 2025-08-14 09:02 | XMS_ITS | Encounter Summary ---
Author Organization [facility] Address [address] [place] [address] Care Team Providers Care Sr. Director Product Management Name Role Phone Unavailable Primary Care Provider Unavailabl e Encounter Details Date Type Department Care Team (Late Contact Info) Description 06/01/2024 Abstract NOMSonja TORRES [address] [facility] [place] [address] Teagan Mello LPN 102 [facility] [address] [place], [place] [address] Social History Tobacco Use Types Packs/Day Years [...] EDT Office Visit NOMSonja TORRES [address] [facility] [place] [address] Safia Avalos PA [address] [facility] [address] [place], [facility]11 documented as of this encounter Goals Goal Patient Goal Type Associated Problems Recent Progress Patient-Stated? Author Reminders Care Plan OB Reminders No Open Scheduling, Background documented as of this encounter Visit Diagnoses Not on filedocumented in this encounter Additional Health Concerns Active Problems Noted Date Diagnosed Date OB Reminders 12/09/2023 documented as of this encounter
--- OUTSIDE RECORDS SUMMARY | 2025-08-14 09:02 | XMS_ITS | Encounter Summary ---
Author Organization [facility] Address [address] [place] [address] Care Team Providers Care Underground Truck Operator Name Role Phone Unavailable Primary Care Provider Unavailabl e Encounter Details Date Type Department Care Team (Late Contact Info) Description 05/31/2024 Abstract NOMSonja TORRES [address] [facility] [place] [address] Power Cutler DO [address] [facility] [address] [place], [place] [address] Social History Tobacco Use Types Packs/Day Years [...] Office Visit NOMSonja TORRES [address] [place] [address] Safia Avalos PA [address] [facility] [address] [place], [facility]11 documented as of this encounter Goals Goal Patient Goal Type Associated Problems Recent Progress Patient-Stated? Author Reminders Care Plan OB Reminders No Open Scheduling, Background documented as of this encounter Visit Diagnoses Not on filedocumented in this encounter Additional Health Concerns Active Problems Noted Date Diagnosed Date OB Reminders 12/09/2023 documented as of this encounter
--- OUTSIDE RECORDS SUMMARY | 2025-08-14 09:02 | XMS_ITS | Clinical Summary ---
Author Organization [facility] Healthcare Address [address] [place] [address] Care Team Providers Care Hat Block Maker Name Role Phone Unavailable Primary Care [...] (PriLOSEC) [address] capsuleIndications :Third trimester ([facility]) Take 1 capsule (20 mg) by mouth in the morning. Take before meals. Do not crush or chew.. 30 capsule 11 03/28/20 24 Active Yvnvdhlh-Oqn-Ka-FA ( 1 + IRON PO) Take 1 [...] by mouth daily 28 tablet 11 06/21/20 025 Discontinued doxycycline (Vibramycin) 100 MG capsuleIndications :Cervicitis and endocervicitis Take 1 capsule (100 mg) by mouth in the morning and 1 capsule (100 mg) before bedtime. Do all this for 7 days. Take with at least 8 ounces (large glass) of water, do not lie down for 30 minutes after. 14 capsule 07/20/20 025 Active Problems Problem Noted Date Diagnosed Date Surrogate ([facility]) 07/06/2023 Encounters Date Type Department Care Team Description 08/01/2025 2:20 PM EDT [place] [address] Power Cutler DO Pre-op examination; Labial pain; Dyspareunia in female; Pelvic pain; Difficulty urinating 07/24/2025 [place] [address] Doreen Petit MA 07/20/2025 9:00 AM EDT [place] [phone] Cherie Callahan NP Well woman exam with routine gynecological exam (Primary Dx); Exposure to STD; Vaginal discharge; Pelvic pain in female; Hormone disorder; Cervicitis and endocervicitis 07/20/2025 Clinisync Result Encounter [facility] External Department Unsolicited Cherie Callahan NP 07/20/2025 External Result Encounter [facility] External Department Unsolicited Cherie Callahan NP 07/20/2025 Bamboo [place] [address] Cherie Callahan NP 07/19/2025 Travel 06/21/2025 Refill [facility] [address] [place] [address] Safia Avalos PA Encounter for initial prescription of contraceptive [...] (131 lb) 08/01/2025 2:38 PM EDT Height 157.5 cm (5' 2 ) 07/06/2023 8:57 AM EDT Body Mass Index 23.96 07/06/2023 8:57 AM EDT Plan of Treatment Upcoming Encounters Date Type Department Care Team (Late st Contact Info) Description 09/07/2025 8:30 AM EDT Office Visit [facility] [address] [place] [phone] Safia Avalos PA [address] [place] [address] Health Maintenance Due Date Last Done Comments Influenza Vaccine (#1) 2025 2, 08/04/2021, 09/13/2020, Additional history exists Cervical Cancer Screening 07/20/2030 HPV/Cotest 07/20/2030 Pap Smear 07/20/2030 07/20/2025, 07/06/2023 Goals Goal Patient Goal Type Associated Problems Recent Progress Patient-Stated? Author Reminders Care Plan OB Reminders No Open Scheduling, Background Procedures Procedure Name Priority Date/Time Associated Diagnosis Comments RECURRENT VAGINITIS (HTRX) Routine 07/20/2025 11:43 AM EDT POCT URINALYSIS DIPSTICK Routine 07/20/2025 9:27 AM EDT Pelvic pain in female POCT , URINE Routine 07/20/2025 9:26 AM EDT Pelvic pain in female IGP,APTIMA HPV,AGE GDLN Routine 07/20/2025 9:09 AM EDT PAP SMEAR Routine 07/20/2025 12:00 AM EDT from Last 3 Months Results * RECURRENT VAGINITIS (HTRX) (07/20/2025 11:43 AM EDT) Pathologist [facility] ATOPOBIUM VAGINAE 0 19.961 - 24.689 ppm 07/21/2025 6:39 AM EDT [facility] ATOPOBIUM VAGINAE Not Detected 19.961 - 24.689 ppm 07/21/2025 6:39 AM EDT [facility] BVAB 2,3 (BACTERIAL VAGINOSIS ASSOCIATED BACTERIA 2, 3); MOBILUNCUS SPP 0 19.961 - 24.689 ppm 07/21/2025 6:39 AM EDT [facility]BACTERIAL VAGINOSIS ASSOCIATED BACTERIA 2, 3); MOBILUNCUS SPP Not Detected 19.961 - 24.689 ppm 07/21/2025 6:39 AM EDT [facility] YAMEL ALBICANS, PARAPSILOSIS, TROPICALIS 0 23.000 - 30.347 ppm 07/21/2025 6:39 AM EDT [facility] YAMEL ALBICANS, PARAPSILOSIS, TROPICALIS Not Detected 23.000 - 30.347 ppm 07/21/2025 6:39 AM EDT [facility] YAMEL GLABRATA 0 23.000 - 31.618 ppm 07/21/2025 6:39 AM EDT [facility] YAMEL GLABRATA Not Detected 23.000 - 31.618 ppm 07/21/2025 6:39 AM EDT [facility] YAMEL KRUSEI 0 23.000 - 30.873 ppm 07/21/2025 6:39 AM EDT [facility] YAMEL KRUSEI Not Detected 23.000 - 30.873 ppm 07/21/2025 6:39 AM EDT [facility] CHLAMYDIA TRACHOMATIS 0 23.000 - 31.586 ppm 07/21/2025 6:39 AM EDT [facility] CHLAMYDIA TRACHOMATIS Not Detected 23.000 - 31.586 ppm 07/21/2025 6:39 AM EDT [facility] GARDNERELLA VAGINALIS 0 19.961 - 24.689 ppm 07/21/2025 6:39 AM EDT [facility] GARDNERELLA VAGINALIS Not Detected 19.961 - 24.689 ppm 07/21/2025 6:39 AM EDT [facility] MEGASPHAERA (TYPES 1, 2) 0 19.961 - 24.689 ppm 07/21/2025 6:39 AM EDT [facility] MEGASPHAERA (TYPES 1, 2) Not Detected 19.961 - 24.689 ppm 07/21/2025 6:39 AM EDT [facility] NEISSERIA GONORRHOEAE 0 23.000 - 32.587 ppm 07/21/2025 6:39 AM EDT [facility] NEISSERIA GONORRHOEAE Not Detected 23.000 - 32.587 ppm 07/21/2025 6:39 AM EDT [facility] TRICHOMONAS VAGINALIS 0 23.000 - 31.995 ppm 07/21/2025 6:39 AM EDT [facility] TRICHOMONAS VAGINALIS Not Detected 23.000 - 31.995 ppm 07/21/2025 6:39 AM EDT [facility] MYCOPLASMA GENITALIUM 0 19.961 - 24.689 ppm 07/21/2025 6:39 AM EDT [facility] MYCOPLASMA GENITALIUM Not Detected 19.961 - 24.689 ppm 07/21/2025 6:39 AM EDT [facility] Tissue 07/20/2025 11:4 3 AM EDT 07/21/2025 1:52 AM EDT us Cherie Callahan NP LAB BLOOD ORDERABLES Final Re sult [facility] [address] [address] * (ABNORMAL) POCT urinalysis dipstick manually resulted [...] CARE TEST ENTER/EDIT ORDERABLES Final Result * IGP,APTIMA HPV,AGE GDLN (07/20/2025 9:09 AM EDT) AGE GDLN ACOG TESTING Note . [facility] Comment: TESTS RESULT FLAG UNITS REF RANGE LAB Clinician Provided Cytology Information Source.............Cervix;Endocervix No. of containers..01 ThinPrep Vial Age Algo ACOG Lauryn... 28 FLAG LEGEND: L-Low Normal,H-High Normal,LL-Alert Low,HH-Alert High <-Panic Low,>-Panic High,A-Abnormal,AA-Critical Abnormal Performed at: 01 =G [facility] [address] Corrine Monique MD, IGP, APTIMA HPV, RFX 16/18,45 Note . [facility] Comment: TESTS RESULT FLAG UNITS REF RANGE LAB DIAGNOSIS: 02 NEGATIVE FOR INTRAEPITHELIAL LESION OR MALIGNANCY. Specimen adequacy: 02 Satisfactory for evaluation. Endocervical and/or squamous metaplastic cells (endocervical component) are present. Performed by: 02 Mary Knight Recreation Coordinator ([facility]) . 02 Note: Note 02 The Pap smear is a screening test designed to aid in the detection of premalignant and malignant conditions of the uterine cervix. It is not a diagnostic procedure and should not be used as the sole means of detecting cervical cancer. Both false-positive and false-negative reports do occur. Test Methodology: Note 02 This liquid based ThinPrep(R) pap test was screened with the use of an image guided system. HPV Genotype Reflex Note 02 Criteria not met, HPV Genotype not performed. FLAG LEGEND: L-Low Normal,H-High Normal,LL-Alert Low,HH-Alert High <-Panic Low,>-Panic High,A-Abnormal,AA-Critical Abnormal Performed at: [address] [address] Corrine Monique MD, HPV APTIMA Negative Negative TB Comment: This nucleic acid amplification test detects fourteen high- risk HPV types (16,18,31,33,35,39,45,51,52,56,58,59,66,68) without differentiation. Performed at: = - [facility] [id number] Engine Lathe Tender: Corrine Monique MD, Phone: [phone] Performed at: [address] [id number] Engine Lathe Tender: Corrine Monique MD, Phone: [phone] 07/20/2025 9:09 AM EDT 07/20/2025 2:50 PM EDT Narrative [facility] - 07/23/2025 10:24 AM EDT BRUSH-SPATULA CERVIX ENDOCERVIX Cherie Sindy DIGITAL PRODUCT MANAGER LAB BLOOD ORDERABLES Final Re sult [facility] * Pap Smear (07/20/2025 12:00 AM EDT) Swab Cervical swab / Unknown Cherie Callahan NP LAB CYTOLOGY ORDERABLES Final Result Performing Organization Address City[facility]/ZIP Co de Phone Number EXTERNAL LAB from Last 3 Months Additional Health Concerns Active Problems Noted Date Diagnosed Date OB Reminders 12/09/2023 Insurance
--- OUTSIDE RECORDS SUMMARY | 2025-08-14 09:02 | XMS_ITS | Encounter Summary ---
Author Organization [facility] Address [address] [place] [address] Care Team Providers Care Funnel Setter Name Role Phone Unavailable Primary Care Provider Unavailabl e Encounter Details Date Type Department Care Team (Late st Contact Info) Description 04/04/2024 Clinisync Result Encounter [facility] External Department Unsolicited Gonzales Cutler DO [address], [facility] Social History Tobacco Use Types Packs/Day Years [...] EDT Office Visit [facility] [address] [place] [phone] Safia Avalos PA [address] [place], [facility] documented as of this encounter Goals Goal [...] PM EDT Narrative 04/04/2024 12:27 [place] [address] Ultrasound Report Signed Patient: ZARA ROBISON MR#: [id number] : 1995 Acct:[id number] Age/Sex: 28 / F ADM Date: 04/04/24 Loc: US Attending Dr: Gonzales Cutler D.O. Ordering Physician: Gonzales Cutler D.O. Date of Service: 04/04/24 Procedure(s): US OB growth Accession Number(s): [id number] cc: Gonzales Cutler D.O.; Physician,Non-Staff M.D. [facility] [place] [address] Patient Name: ZARA ROBISON MRN: [id number] date: 1995 Sex: F Assigned Patient Location: Current Patient Location: US Accession/Order Number: [id number] Exam Date: 04/04/2024 11:04 Report Date: 04/04/2024 [...] Signed By: 04/04/24 1227 DD/ 1224 TD/TT: Photographic Reproduction Technician: Procedure Note Radiology, Radiologist, MD - 04/04/2024 [place] [address] Ultrasound Report Signed Patient: ZARA ROBISON NMR#: [id number] : 1995Acct:[id number] Age/Sex: 28 / FADM Date: 04/04/24 Loc: US Attending Dr: Gonzales Cutler D.O. Ordering Physician: Gonzales Cutler D.O. Date of Service: 04/04/24 Procedure(s): US OB growth Accession Number(s): [id number] cc: Gonzales Cutler D.O.; Physician,Non-Staff [place] [facility] [place] [address] Patient Name: ZARA ROBISON MRN: [id number] date: 1995 Sex: F Assigned Patient Location: US Current Patient Location: US Accession/Order Number: [id number] Exam Date: 04/04/2024 11:04 Report Date: 04/04/2024 [...] Age by EDC: 29 weeks 0 days IBARHIMA by EDC: 06/20/2024 Age by US: 20 weeks 6 days IBRAHIMA by US: 06/21/2024 US/US OB growth IMPRESSION: 1. Single live intrauterine with growth detailed above. Electronically authenticated by: DALE VILLANUEVA Date: 04/04/2024 12:24 Dictated By: Dale Villanueva M.D. Signed By:04/04/24 1227 DD/ 1224 TD/TT: Photographic Reproduction Technician: us Gonzales Omayra DO [facility] Final Result documented in this encounter Visit Diagnoses Not on filedocumented in this encounter Additional Health Concerns Active Problems Noted Date Diagnosed Date OB Reminders 12/09/2023 documented as of this encounter
== END 2025-08-14 08:55 | disposition home or self-care (01) ==
LOC: PST 08:54
PROVIDERS: Visit Provider Obstetrics & Gynecology
DX: Z01.818 Encounter for other preprocedural examination (principal); N94.89 Other specified conditions associated with female genital organs and menstrual cycle

== ENCOUNTER 2025-08-14 08:57 | Outpatient (OUT) | payer BC, SELFPAY ==
--- OUTSIDE RECORDS SUMMARY | 2025-08-01 14:20 | XMS_ITS ---
Author Name Auto Generated Organization OHIP Care Team Providers Care Helicopter Officer Name Role Phone Deborah Deutsch Attending Unavailable HERMAN, HAMMAD A Attending Unavailable HERMAN, HAMMAD A Attending Unavailable HERMAN, HAMMAD A Admitting Unavailable HERMAN, HAMMAD A Attending Unavailable HERMAN, HAMMAD A Admitting Unavailable HERMAN, HAMMAD A Attending Unavailable HERMAN, HAMMAD A Admitting Unavailable HERMAN, HAMMAD A Attending Unavailable BENITO KIRKLAND Attending Unavailable EDWARDGONZALES Live Attending Unavailable PROBLEMS No Problem Records Found PROCEDURES No Procedure Records Found RESULTS PATIENT EDUCATION Observed: 02/22/2025 9:51 AM Status: F Source: [facility] Patient Education Obstetrics and Gynecology Health Maintenance, [...] provider. Document Revised: 03/24/2022 Document Reviewed: 03/24/2022 Elsevier Patient Education ? 2023 [employer] TSH WITH T4FR REFLEX Collected: 025 8:16 AM Status: F Source: [facility] TYPE CODE TESTS RESULT OUT OF RANGE REFERENCE UNITS LAB 3016-3([facility]) THYROTROPIN: ACNC:PT:SER/ PLAS:QN: 2.28 Normal 0.34-5.60 mcIU/mL Performed By: #### [id number] #### [facility] [address] [place] [address] EGFR Collected: 8:16 AM Status: F Source: [facility] TYPE CODE TESTS RESULT OUT OF RANGE REFERENCE UNITS LAB 96594348([facility]) eGFR 118 Normal >=59 mL/min/1 .7 3 m2 Performed By: #### [id number] #### [facility] [address] [place] [address] CMP Collected: 02/22/2025 8:16 AM Status: F Source: [facility] TYPE CODE TESTS RESULT OUT OF RANGE REFERENCE UNITS LAB 2345-7(LOINC) GLUCOSE:MCNC:P T:SER/PLAS:QN: 86 Normal 55-199 mg/dL LAB 3094-0(LOINC) UREA NITROGEN:MCNC: PT:SER/PLAS:QN : 12 Normal 5-21 mg/dL LAB 2160-0(LOINC) CREATININE:MCN C:PT:SER/PLAS: QN: 0.7 Normal 0.5-1.3 mg/dL LAB 53254-1([facility]) CALCIUM:MCNC:P T:SER/PLAS:QN: 9.1 Normal 8.9-11.1 mg/dL LAB 2951-2([facility]) SODIUM:SCNC:PT :SER/PLAS:QN: 136 Normal 135-145 mmol/L LAB 2823-3([facility]) POTASSIUM:SCNC :PT:SER/PLAS:Q N: 4.5 Normal 3.5-5.3 mmol/L LAB 2075-0([facility]) CHLORIDE:SCNC: PT:SER/PLAS:QN : 106 Normal 101-111 mmol/L LAB 2028-9([facility]) CARBON DIOXIDE:SCNC:P T:SER/PLAS:QN: 25 Normal 21-31 mmol/L LAB 6768-6([facility]) ALKALINE PHOSPHATASE:CC NC:PT:SER/PLAS :QN: 48 Normal 21-98 Int._Unit /L LAB 1975-2([facility]) BILIRUBIN:MCNC :PT:SER/PLAS:Q N: 0.8 Normal 0.0-1.1 mg/dL LAB 1751-7([facility]) ALBUMIN:MCNC:P T:SER/PLAS:QN: 4.5 Normal 3.3-5.0 gm/dL LAB 2885-2([facility]) PROTEIN:MCNC:P T:SER/PLAS:QN: 7.4 Normal 6.0-7.8 gm/dL LAB 1744-2([facility]) ALANINE AMINOTRANSFERA SE:CCNC:PT:SER /PLAS:QN:NO ADDITION OF P-5'-P 14 Normal 6-46 Int._Unit /L LAB 1920-8([facility]) ASPARTATE AMINOTRANSFERA SE:CCNC:PT:SER /PLAS:QN: 17 Normal 5-43 Int._Unit /L LAB 3097-3([facility]) UREA NITROGEN/CREAT ININE:MRTO:PT: SER/PLAS:QN: 17 Normal 10-20 No Units LAB 84223-3([facility]) ANION GAP:SCNC:PT:SE R/PLAS:QN:CALC ULATED 10 Normal 6-16 mEq/L LAB 19801-2([facility]) GLOBULIN:MCNC: PT:SER:QN:CALC ULATED 2.9 Normal 1.4-4.0 gm/dL LAB 50896-5([facility]) ALBUMIN/GLOBUL IN:MCRTO:PT:SE R:QN: 1.6 Normal 1.1-2.2 Performed By: #### [id number] # ### [facility] [address] [place] [address] CBC W/ AUTO DIFF Collected: 02/22/2025 8:16 AM Statu s: F Source: [facility] TYPE CODE TESTS RESULT OUT OF RANGE REFERENCE UNITS LAB 41959-0([facility]) LEUKOCYTES^^CO RRECTED FOR NUCLEATED ERYTHROCYTES:N CNC:PT:BLD:QN: AUTOMATED COUNT 6.0 Normal 4.0-11.0 E9/L LAB 789-8([facility]) ERYTHROCYTES:N CNC:PT:BLD:QN: AUTOMATED COUNT 4.8 Normal 4.3-5.9 E12/L LAB 718-7([facility]) HEMOGLOBIN:MCN C:PT:BLD:QN: 14.7 Normal 12.0-16.0 gm/dL LAB 4544-3([facility]) ERYTHROCYTE/BL OOD:VFR:PT:BLD :QN:AUTOMATED COUNT 43.2 Normal 34.0-46.0 % LAB 788-0([facility]) OBSERVATION:DI STWIDTH:PT:RBC :QN:AUTOMATED COUNT 14.5 High 10.9-14.2 % LAB 785-6([facility]) HEMOGLOBIN:ENT MASS:PT:RBC:QN :AUTOMATED COUNT 30.8 Normal 27.0-34.0 pg LAB 786-4([facility]) HEMOGLOBIN:ENT MCNC:PT:RBC:QN :AUTOMATED COUNT 33.9 Normal 31.4-36.0 gm/dL LAB 787-2([facility]) OBSERVATION:EN TMEANVOL:PT:RB C:QN:AUTOMATED COUNT 90.8 Normal 80.0-100.0 fL LAB 89834-7([facility]) PLATELET:ENTME ANVOL:PT:BLD:Q N:AUTOMATED COUNT 10.2 Normal 6.4-10.8 fL LAB 777-3([facility]) PLATELETS:NCNC :PT:BLD:QN:AUT OMATED COUNT 185.0 Normal 150.0-500.0 E9/L LAB 83180-7([facility]) NEUTROPHILS/LE UKOCYTES:NFR:P T:BLD:QN: 57.0 Normal 36.0-75.0 % LAB 731-0([facility]) LYMPHOCYTES:NC NC:PT:BLD:QN:A UTOMATED COUNT 34.2 Normal 14.0-50.0 % LAB 742-7([facility]) MONOCYTES:NCNC :PT:BLD:QN:AUT OMATED COUNT 0.5 Normal 0.2-1.0 E9/L LAB 713-8([facility]) EOSINOPHILS/LE UKOCYTES:NFR:P T:BLD:QN:AUTOM ATED COUNT 0.6 Normal 0.0-8.0 % LAB 704-7([facility]) BASOPHILS:NCNC :PT:BLD:QN:AUT OMATED COUNT 0.7 Normal 0.0-2.0 % LAB 751-8([facility]) NEUTROPHILS:NC NC:PT:BLD:QN:A UTOMATED COUNT 3.4 Normal 2.0-7.5 E9/L LAB 58964-3([facility]) LYMPHOCYTES:NC NC:PT:BLD:QN: 2.1 Normal 1.0-4.0 E9/L LAB 05066-5([facility]) EOSINOPHILS:NC NC:PT:BLD:QN: 0.0 Normal 0.0-0.5 E9/L LAB 06686-7([facility]) BASOPHILS/LEUK OCYTES:NFR.DF: PT:BLD:QN:AUTO MATED COUNT 0.0 Normal 0.0-0.2 E9/L Performed By: #### [id number] # ### [facility] [address] [place] [address] LIPID PANEL Collected: 02/22/2025 8:16 AM Status: F Source: [facility] TYPE CODE TESTS RESULT OUT OF RANGE REFERENCE UNITS LAB 2092-([facility]) CHOLESTEROL:M CNC:PT:SER/PL :QN: 128 Normal 120-200 mg/dL LAB 2084-([facility]) CHOLESTEROL.I N HDL:MCNC:PT:S ER/PLAS:QN: 50 Unknown mg/dL Result Comment: '>= 60 LOW R ISK' '<= 40 HIGH RISK' LAB 2089-1([facility]) CHOLESTEROL.I N LDL:MCNC:PT:S ER/PLAS:QN: 80 Normal <=129 mg/dL LAB 2571-8([facility]) TRIGLYCERIDE: MCNC:PT:SER/P LAS:QN: 82 Normal <=149 mg/dL LAB 90450-3([facility]) CHOLESTEROL.I N VLDL:MCNC:PT: SER/PLAS:QN:C ALCULATED 16 Normal 7-40 mg/dL Performed By: #### [id number] # ### [facility] [address] [place] [address] AMBULATORY VISIT SUMMARY Observed: 02/22 7:35 AM Status: F Source: [facility] Ambulatory Visit Summary ZARA ROBISON Trae :1995 Visit Date:02/22/2025 Ambulatory Visit Instructions [...] No, Blood in stool Coccyx pain, pp_set_radiology_subspecialty, [facility] Medications What How Much When Instructions [...] Observed: 02/22/2025 7:35 AM Status: F Source: [facility] Family Medicine Office/Clini c Note Chief Complaint [...] Diff Comprehensive Metabolic Panel Lab Specimen Collect 22342 Lipid Panel TSH With T4fr Reflex 2. Blood in stool (K92.1: Melena) - Recommend MiraLAX as a stool softener to alleviate symptoms linked with straining. - Initiate referral to gastroenterology for detailed evaluation due to family history considerations. - Continue assessing stool softening impact and adjust interventions as necessary. Ordered: [facility] Internal Ambulatory Referral XR Sacrum and Coccyx Min 2 Views 3. Constipation (K59.00: Constipation, unspecified) - Start MiraLAX - Encouraged to drink at least 64 ounces of water per day Ordered: polyethylene glycol 3350, 17 gm, Oral, Daily, # 10 EA, Refills(s) 1, Pharmacy: [facility] 0298, 159, cm, 02/22/25 7:44:00 EDT, Height/Length [...] Comment: Electronical ly Signed By: HAMMAD SUTTON CNP\.ubnny\Date and Time Signed: 02/22/25 09:52 EDT FAMILY MEDICINE OFFICE/CLINI C NOTE Observed: 09/06/2024 2:04 PM Status: F Source: [facility] Family Medicine Office/Clini c Note Chief Complaint [...] reports she was a prior patient of ByronMegan Solitario. She reports she has been healthy and [...] day(s), # 10 tab(s), Refills(s) 0, Pharmacy: [facility]/pharmacy #[id number], 159, cm, 09/06/24 13:14:00 EDT, Height/Length Dosing, 63, kg, 09/06/24 13:14:00 EDT, Weight Dosing Urine Culture Urnls Dip Stick Auto w/o Microscopy POC 95974 2. Encounter to establish care (Z76.89: Persons encountering health services in other specified circumstances) Ordered: ciprofloxacin, 500 mg = 1 tab(s), Oral, q12hr, X 5 day(s), # 10 tab(s), Refills(s) 0, Pharmacy: [facility]/pharmacy #[id number], 159, cm, 09/06/24 13:14:00 EDT, Height/Length Dosing, 63, kg, 09/06/24 13:14:00 EDT, Weight Dosing 3. BMI 24.0-24.9, adult (Z68.24: Body mass index [BMI] 24.0-24.9, adult) Monitor weight at each visit Encourage portion control and daily exercise Ordered: ciprofloxacin, 500 mg = 1 tab(s), Oral, q12hr, X 5 day(s), # 10 tab(s), Refills(s) 0, Pharmacy: [facility]/pharmacy #[id number], 159, cm, 09/06/24 13:14:00 EDT, Height/Length Dosing, 63, kg, 09/06/24 13:14:00 EDT, Weight Dosing 4. Nonsmoker (Z78.9: Other specified health status) Encouraged to continue as a non-smoker Ordered: ciprofloxacin, 500 mg = 1 tab(s), Oral, q12hr, X 5 day(s), # 10 tab(s), Refills(s) 0, Pharmacy: [facility]/pharmacy #[id number], 159, cm, 09/06/24 13:14:00 EDT, Height/Length Dosing, 63, kg, 09/06/24 13:14:00 EDT, Weight Dosing Follow-up With When Contact Information HAMMAD SUTTON CNP, FAM Within 1 year [address] [place] [address] Business (1) Additional Instructions: Well [...] Dipstick: 2+ (100 mg/dl) (09/06/24 13:21:00) Specific [place] Urine Dipstick: 1.025 (09/06/24 13:21:00) Urine Appearance Urine Dipstick: Clear (09/06/24 13:21:00) Urine Color Urine Dipstick: [place] (09/06/24 13:21:00) Urobilinogen Urine Dipstick: 2 EU/dl (09/06/24 13:21:00) pH Urine Dipstick: 5.5 (09/06/24 13:21:00) Result Comment: Electronical ly Signed By: HAMMAD SUTTON CNP\.br\Date and Time Signed: 09/06/24 14:04 EDT AMBULATORY VISIT SUMMARY Observed: 09/06 1:31 PM Status: F Source: [facility] Ambulatory Visit Summary ZARA ROBISON Trae :1995 [...] Observed: 09/06/2024 1:28 PM Status: F Source: [facility] Microbiology PROCEDURE: Urine Culture [R1] SOURCE: U Random BODY SITE: COLLECTED DATE/TIME: 09/06/2024 13:28 EDT RECEIVED DATE/TIME: 09/06/2024 18:02 EDT START DATE/TIME: 09/06/2024 18:02 EDT FREE TEXT SOURCE: HAMMAD SUTTON CNP, CNP, SHELLY A FINAL REPORTS Final Report [] Verified Date/Time: 09/08/2024 11:00 EDT 2,000 cfu/ml Mixed skin contaminants Performing Locations R1: This test was performed at: [facility], [address] [place] [address], [address]- , , Performed By: #### [id number] # ### [facility] [address] [place] [address] C URINE Observed: 09/06/2024 1:28 PM Status: F Source: [facility] Microbiology PROCEDURE: Urine Culture [R1] SOURCE: U Random BODY SITE: COLLECTED DATE/TIME: 09/06/2024 13:28 EDT RECEIVED DATE/TIME: 09/06/2024 18:02 EDT START DATE/TIME: 09/06/2024 18:02 EDT FREE TEXT SOURCE: HAMMAD SUTTON CNP, CNP, SHELLY A FINAL REPORTS Final Report [] Verified Date/Time: 09/08/2024 11:00 EDT 2,000 cfu/ml Mixed skin contaminants Performing Locations R1: This test was performed at: [facility], [address] [place] [address], [address]- , , Performed By: #### [id number] # ### [facility] [address] [place] [address] ALLERGIES DATE TYPE / CODE NAME / CODE REACTION SEVERITY SOURCE [id number](SNOME D CT) penicillin [id number] [facility] [id number](SNOME D CT) No Known Allergies [facility] [id number](SNOME D CT) No Known Medication Allergies [facility] ENCOUNTERS ADMIT/DISCHARGE ACCOUNT NUMBER ADMITTING ENCOUNTER CLASS LOCATION SOURCE 08/01/2025/08/01/20 [id number] Ambulatory Building:NO MS BCP OB [facility] EPIC 07/20/2025/07/20/20 [id number] Ambulatory Building:NO MS BCP OB [facility] EPIC 04/12/2025/04/12/20 [id number] Ambulatory [facility] 02/27/2025 [id number] Ambulatory [place]: [facility] 02/22/2025 [id number] HAMMAD SUTTON Ambulatory [facility]:FT LAB [facility] 02/22/2025/02/23/20 25 [id number] HAMMAD SUTTON Ambulatory [facility]in g:FT LAB [facility] 02/22/2025/02/23/20 25 [id number] Ambulatory [facility]: CD:[id number] [address] [place] [address] 09/06/2024/09/06/20 24 [id number] HAMMAD SUTTON Ambulatory FTMCBuildin g:FT LAB [facility] 09/06/2024/09/06/20 24 [id number] Ambulatory [facility] [place] [place] [facility]: CD:[id number] [address] [place] [address] 09/06/2024 [id number] Ambulatory [facility] [facility] PAYERS ENCOUNTER GUARANTOR PAYER SUBSCRIBER SOURCE 08/01/2025 ZARA WAHLB: [place], [place] [address]Rjy: (HP) Primary Insurance:D[place] cy Number: [id number] ctive Date:2023-11-16 ALLA ROBISONDOB: [id number] [address] [facility] 07/20/2025 ZARA ROBISONDOB: [place], [place] [address]Ydt: (HP) Primary Insurance:Awa cy Number: [id number] ctive Date:2023-11-16 ALLA ROBISONB: [id number] [address] [facility] EPIC 04/12/2025 ZARA ROBISONB: [place] HTSTel: ~ ~(41 (HP) Primary Insurance:AnthemPo licy Number: [id number] ctive Date:[id number] [address]SS: ALLAMALVIN ROBISON [facility] 02/22/2025 ZARA ROBISONB: [place] HTSTel: ~ ~(41 (HP) Primary Insurance:AnthemPo licy Number: [id number] ctive Date:5892-11-18WO[address] [address]EP: ALLA ROBSION [facility] 02/22/2025 ZARA ROBISONDOB: [place] HTSTel: ~ ~(41 (HP) Primary Insurance:AnthemPo licy Number: [id number] ctive Date:5457-51-55AS [address] [address]XI: ALLAMALVIN ROBISON [facility] 02/22/2025 Secondary Insurance:SELF PAYPolicy Number: [id number] Date:2025-05-26 ZARA ROBISONEast [facility] 09/06/2024 ZARA Larkin MARYURIB: [place] HTSTel: ~ ~(41 (HP) Primary Insurance:AnthemPo licy Number: [id number] ctive Date:3422-60-72FZ [address], [place] [address]AS: ALAL ROBISON [facility] 09/06/2024 ZARA Larkin MARYURIB: [place] HTSTel: ~ ~(41 (HP) Primary Insurance:AnthemPo licy Number: [id number] ctive Date:7709-66-14CW [address] [address]RG: ALLAMALVIN ROBISON [facility]
[2025-08-14 10:21] LABS: Free T3 2.00 pg/mL (2.18-3.98); Glucose 83 mg/dL (74-106)
[2025-08-14 10:53] LABS: Ferritin 16.0 ng/mL (8.0-252.0)
[2025-08-15 04:07] LABS: Sex Horm Binding Glob, Serum 75.6 nmol/L (24.6-122.0)
[2025-08-16 16:09] LABS: Calcitriol(1,25 di-OH Vit D) 44.1 pg/mL (24.8-81.5)
[2025-08-18 09:08] LABS: Serotonin, Serum 214 ng/mL (31-207)
[2025-08-18 11:10] LABS: Reverse T3, Serum 18.6 ng/dL (9.2-24.1)
== END 2025-08-14 08:58 | disposition home or self-care (01) ==
LOC: LAB 08:58
PROVIDERS: Visit Provider Nurse Practitioner Family
DX: E34.9 Endocrine disorder, unspecified (principal)
CPT/HCPCS: 36415; 82530; 82627; 82652; 82670; 82679; 82728; 82947; 83525; 84144; 84260; 84270; 84402; 84403; 84432; 84436; 84439; 84481; 84482; 84681; 86376; 86800

== ENCOUNTER 2025-08-25 07:45 | Day surgery (SDC) | payer BC, SELFPAY ==
[2025-08-14 09:05] VITALS: BP 118/77; PULSE 79; TEMP 36.8; O2SAT 99; BMI 24.5
[2025-08-25] VITALS (15 sets, daily range): BP systolic 107–139; BP diastolic 75–100; PULSE 60–98; TEMP 36.1–36.3; O2SAT 96–100; BMI 24.5
--- OUTSIDE RECORDS SUMMARY | 2025-08-25 07:50 | XMS_ITS | CCD ---
Author Organization [facility] Care Team Providers Care Electronics Scale Tester Name Role Phone TARAS, DR EARLY Admitting [...] EARLY Consulting Unavailable Unavailable Primary Care Provider UnavailHAMMAD Vickers Admitting Unavailable HAMMAD SUTTON Attending Unavailable HAMMAD SUTTON Attending Unavailable HERMAN, YUN Fuller Attending UnavailYUN Vickers Admitting UnavailDeborah Duran Attending Unavailable HAMMAD SUTTON Admitting Unavailable HAMMAD SUTTON Attending Unavailable HAMMAD SUTTON Attending Unavailable CHERIE CALLAHAN Attending Unavailable GONZALES CUTLER Attending [facility]available [facility] Unavailable Hammad Sutton Primary Care Unavailable [facility]ending Unavailable Hammad Sutton Primary Care Unavailable [facility] Admitting Unavailable Herman [facility] Provider [facility] Marvel GUTIERREZ Attending Provider Allergies Allergy Classification Reported Allergen(s) Allergy Type Date of Onset Reaction(s) Facility (3 sources) Penicillin; Translations: [penicillin] Drug Allergy [facility] Repository (3 sources) No Known Medication Allergies; Translations: [No Known Medication Allergies] Propensity to adverse reactions (disorder) [facility] Repository Medications Current Medications Medication Drug Class(es) Dates Sig (Normalized) Sig (Original) [id number] 200 actuat albuterol 0.09 mg/actuat metered dose inhaler (8 sources) beta2-Adrenergic Agonist take 2 puff(s) by inhalation every six hours albuterol HFA 90 mcg/act inhaler Inhale 2 puffs every 6 (six) hours if needed Active doxycycline hyclate 100 mg oral capsule (3 sources) Tetracycline-cla ss Drug Start: 07-20-2025 End: 07-27-2025 [...] sulfate 120 mg extended release oral tablet (8 sources) alpha-Adrenergic Agonist loratadine-pseudoep hedrine ER (Alavert Allergy/Sinus) 5-120 MG 12 hr tablet every 12 (twelve) hours Active omeprazole 20 mg delayed release oral capsule (8 sources) Proton Pump Inhibitor Start: 03-28-2024 End: 03-28-2025 take 1 capsule by mouth before mealtime omeprazole (PriLOSEC) [address] capsule Indications: Third trimester ([facility]) Take 1 capsule (20 mg) by mouth in the morning. Take before meals. Do not crush or chew.. 30 capsule 11 03/28/2024 Active ondansetron 4 mg oral tablet (11 sources) Serotonin-3 Receptor Antagonist Start: 12-23-2024 End: [...] vomiting 30 tablet 2 12/09/2023 01/08/2024 Active Yzjrvoot-Qfw-Qi-FA ( 1 + IRON PO) (5 sources) End: 07-20-2025 Ijzmuzvz-Tzp-Go-FA ( 1 + IRON PO) Take 1 each by mouth in the morning. 07/20/2025 Discontinued Multivi t-Min-Fe-FA ( 1 + IRON PO) Take 1 each by mouth in the morning. Active Multivi t-Min-Fe-FA ( 1 + IRON PO) Take 1 each by mouth in the morning. 0 Active Problems Active Problems Problem Classification Problem Date Documented Date Episodic/Chronic Abdominal pain (6 sources) Pelvic and perineal pain; Translations: [Pain in female pelvis] Onset: 11-05-2022 Episodic Congestive heart failure; nonhypertensive (1 source) Unspecified diastolic (congestive) heart failure; Translations: [UNSPECIFIED DIASTOLIC HEART FAILURE] Onset: 02-05-2022 Chronic Deficiency and other anemia (1 source) Anemia, unspecified; Translations: [ANEMIA UNSPECIFIED] Onset: 11-07-2022 Episodic Diabetes mellitus without complication (1 source) Other abnormal glucose; Translations: [OTHER ABNORMAL GLUCOSE] Onset: 11-07-2022 Episodic Genitourinary symptoms and ill-defined conditions (1 source) Difficulty passing urine; Translations: [Other difficulties with micturition] 08-01-2025 Episodic Hypertension with complications and secondary hypertension [...] unspecified] 07-20-2025 Episodic Other female genital disorders (1 source) Pain in female genitalia on intercourse; Translations: [Unspecified dyspareunia] 08-01-2025 Chronic Other female genital disorders (4 sources) Other specified noninflammatory disorders of vagina; Translations: [OTH SPEC NONINFLAMMATORY D/O VAGINA] Onset: 11-04-2022 Episodic Other female genital disorders (3 sources) Disorder of vulva; Translations: [Other specified conditions associated with female genital organs and menstrual cycle] 07-13-2024 Episodic Other female genital disorders (1 source) Vaginal discharge; Translations: [Other specified noninflammatory disorders of vagina] 07-20-2025 Episodic Other upper respiratory infections (5 sources) Acute sinusitis, unspecified; Translations: [ACUTE SINUSITIS UNSPECIFIED] Onset: 01-15-2022 Episodic Unclassified (3 sources) CONTACT W/AND (SUSP) EXPOS COVID-19; Translations: [CONTACT W/AND (SUSP) EXPOS COVID-19] Onset: 01-15-2022 Unclassified (9 sources) OB Reminders Onset: 12-09-2023 12-09-2023 Viral infection (1 source) COVID-19; Translations: [COVID-19] Onset: 06-05-2022 Past or Other Problems Problem Classification Problem Date Documented Da te Episodic/Chronic Other circulatory disease (4 sources) Orthostatic hypotension; Translations: [ORTHOSTATIC HYPOTENSION] Onset: 02-01-2022 Episodic Other connective tissue disease (3 sources) Pain in right foot; Translations: [PAIN IN RIGHT FOOT] Onset: 03-27-2022 Episodic Other and delivery including normal (11 sources) Surrogate ; Translations: [ state, gestational [...] Test Name Value Interpretation Reference Range Facility Albumin [Mass/volume] in Ser um or Plasma by Bromocresol green (BCG) dye binding methoOrdered By: Marvel Panchal on 08-21-2025 Albumin BCG dye [Mass/Vol] 4.4 g/dL 3.5-5.7 [facility] Cholesterol in LDL Calc [Mas s/Vol]Ordered By: Marvel Panchal on 08-21-2025 Cholesterol in LDL [Mass/Vol] 61 mg/dL 0-100 [facility] Comment on above: LDL ATP III CLASSIFI CATIONLDL less than 100 mg/dL OptimalLDL 100-129 mg/dL Near or above optimalLDL 130-159 mg/dL Borderline highLDL 160-189 mg/dL HighLDL greater than 189 mg/dL Very high Cholesterol in VLDL Calc [Ma ss/Vol]Ordered By: Marvel Panchal on 08-21-2025 Cholesterol in VLDL [Mass/Vol] 9 mg/dL [facility] Employee Comp Metabolic Pane linden 08-21-2025 Albumin [Mass/Vol] 4.4 g/dL Normal 3.5-5.7 [facility] Comment on above: Performed By: #### P ILLAR LIPID, PILLAR CMP, PILLAR CBC #### [facility] [address] [place] [address] GFR/1.73 sq M.predicted MDRD (S/P/Bld) [Vol rate/Area] mL/min/{1.73_m2} Normal [facility] Comment on above: Performed By: #### P ILLAR LIPID, PILLAR CMP, PILLAR CBC #### [facility] [address] Employee Comp Metabolic Pane lOrdered By: Marvel Panchal on 08-21-2025 Albumin/Globulin [Mass ratio] 1.8 {ratio} Normal [facility] Comment on above: Performed By: #### P ILLAR LIPID, PILLAR CMP, PILLAR CBC #### [facility] [address] ALP [Catalytic activity/Vol] 43 U/L Normal 34-104 [facility] Comment on above: Performed By: #### P ILLAR LIPID, PILLAR CMP, PILLAR CBC #### [facility] [address] ALT [Catalytic activity/Vol] 9 U/L Normal 7-52 [facility] Comment on above: Performed By: #### P ILLAR LIPID, PILLAR CMP, PILLAR CBC #### [facility] [address] Anion gap [Moles/Vol] 8.3 mmol/L Normal 6.0-15.0 [facility] Comment on above: Performed By: #### P ILLAR LIPID, PILLAR CMP, PILLAR CBC #### [address] AST [Catalytic activity/Vol] 14 U/L Normal 13-39 [facility] Comment on above: Performed By: #### P ILLAR LIPID, PILLAR CMP, PILLAR CBC #### [facility] [address] [place] [address] Bilirubin [Mass/Vol] 0.4 mg/dL Normal 0.3-1.0 [facility] Comment on above: Performed By: #### P ILLAR LIPID, PILLAR CMP, PILLAR CBC #### [address] Calcium [Mass/Vol] 8.5 mg/dL Low 8.6-10.3 [facility] Comment on above: Performed By: #### P ILLAR LIPID, PILLAR CMP, PILLAR CBC #### [facility] [address] [place] [address] [place] Chloride [Moles/Vol] 108 mmol/L High 98-107 [facility] Comment on above: Performed By: #### P ILLAR LIPID, PILLAR CMP, PILLAR CBC #### [address] CO2 [Moles/Vol] 27.2 mmol/L Normal 21.0-31.0 [facility] Comment on above: Performed By: #### P ILLAR LIPID, PILLAR CMP, PILLAR CBC #### [address] [place] [address] [place] Creatinine [Mass/Vol] 0.72 mg/dL Normal 0.60-1.20 [facility] Comment on above: Performed By: #### P ILLAR LIPID, PILLAR CMP, PILLAR CBC #### [facility] [address] Globulin (S) [Mass/Vol] 2.4 g/dL Normal [facility] Comment on above: Performed By: #### P ILLAR LIPID, PILLAR CMP, PILLAR CBC #### [address] Glucose [Mass/Vol] 88 mg/dL Normal 70-100 [facility] Comment on above: Performed By: #### P ILLAR LIPID, PILLAR CMP, PILLAR CBC #### [address] Potassium [Moles/Vol] 4.5 mmol/L Normal 3.5-5.1 [facility] Comment on above: Performed By: #### P ILLAR LIPID, PILLAR CMP, PILLAR CBC #### [address] Protein [Mass/Vol] 6.8 g/dL Normal 6.4-8.9 [facility] Comment on above: Performed By: #### P ILLAR LIPID, PILLAR CMP, PILLAR CBC #### [address] Sodium [Moles/Vol] 139 mmol/L Normal 136-145 [facility] Comment on above: Performed By: #### P ILLAR LIPID, PILLAR CMP, PILLAR CBC #### [address] Urea nitrogen [Mass/Vol] 13 mg/dL Normal 7-25 [facility] Comment on above: Performed By: #### P ILLAR LIPID, PILLAR CMP, PILLAR CBC #### [facility] [address] Employee Complete Blood Coun tOrdered By: Marvel Panchal on 08-21-2025 Basophils (Bld) [#/Vol] 0.0 10*3/uL Normal 0.0-0.2 [facility] Comment on above: Result Comment: PERF ORMED BY: [place] [address] PATHOLOGIST [employer] SUPERVISOR TAMIE WOLFE M.D. Performed By: #### P ILLAR LIPID, PILLAR CMP, PILLAR CBC #### [facility] [address] [place] [address] [place] Basophils/100 WBC (Bld) 0.3 % Normal . [facility] Comment on above: Performed By: #### P ILLAR LIPID, PILLAR CMP, PILLAR CBC #### [address] Eosinophils (Bld) [#/Vol] 0.1 10*3/uL Normal 0.0-0.45 [facility] Comment on above: Performed By: #### P ILLAR LIPID, PILLAR CMP, PILLAR CBC #### [address] Eosinophils/100 WBC (Bld) 1.2 % Normal . [facility] Comment on above: Performed By: #### P ILLAR LIPID, PILLAR CMP, PILLAR CBC #### [address] Erythrocyte distribution width (RBC) [Ratio] 13.9 % Normal 11.9-15.3 [facility] Comment on above: Performed By: #### P ILLAR LIPID, PILLAR CMP, PILLAR CBC #### [facility] [address] [place] [address] Hematocrit (Bld) [Volume fraction] 40.8 % Normal 34.0-46.4 [facility] Comment on above: Performed By: #### P ILLAR LIPID, PILLAR CMP, PILLAR CBC #### [place] [address] [place] Hemoglobin (Bld) [Mass/Vol] 13.9 g/dL Normal 11.8-15.4 [facility] Comment on above: Performed By: #### P ILLAR LIPID, PILLAR CMP, PILLAR CBC #### [address] Lymphocytes (Bld) [#/Vol] 1.7 10*3/uL Normal 1.00-4.8 [facility] Comment on above: Performed By: #### P ILLAR LIPID, PILLAR CMP, PILLAR CBC #### [address] Lymphocytes/100 WBC (Bld) 34.6 % Normal . [facility] Comment on above: Performed By: #### P ILLAR LIPID, PILLAR CMP, PILLAR CBC #### [address] MCH (RBC) [Entitic mass] 31.2 pg Normal 24.7-34.3 [facility] Comment on above: Performed By: #### P ILLAR LIPID, PILLAR CMP, PILLAR CBC #### [address] MCV (RBC) [Entitic vol] 91.8 fL Normal 80-100 [facility] Comment on above: Performed By: #### P ILLAR LIPID, PILLAR CMP, PILLAR CBC #### [address] Monocytes (Bld) [#/Vol] 0.4 10*3/uL Normal 0.0-0.8 [facility] Comment on above: Performed By: #### P ILLAR LIPID, PILLAR CMP, PILLAR CBC #### [address] Monocytes/100 WBC (Bld) 9.1 % Normal . [facility] Comment on above: Performed By: #### P ILLAR LIPID, PILLAR CMP, PILLAR CBC #### [address] Neutrophils (Bld) [#/Vol] 2.6 10*3/uL Normal 1.8-7.7 [facility] Comment on above: Performed By: #### P ILLAR LIPID, PILLAR CMP, PILLAR CBC #### [address] Neutrophils/100 WBC (Bld) 54.8 % Normal . [facility] Comment on above: Performed By: #### P ILLAR LIPID, PILLAR CMP, PILLAR CBC #### [address] Platelet mean volume (Bld) [Entitic vol] 9.4 fL Normal 6.3-10.7 [facility] Comment on above: Performed By: #### P ILLAR LIPID, PILLAR CMP, PILLAR CBC #### [address] Platelets (Bld) [#/Vol] 164 10*3/uL Normal 150-450 [facility] Comment on above: Performed By: #### P ILLAR LIPID, PILLAR CMP, PILLAR CBC #### [address] RBC (Bld) [#/Vol] 4.44 10*6/uL Normal 3.60-5.00 [facility] Comment on above: Performed By: #### P ILLAR LIPID, PILLAR CMP, PILLAR CBC #### [address] WBC (Bld) [#/Vol] 4.8 10*3/uL Normal 3.8-11.6 [facility] Comment on above: Performed By: #### P ILLAR LIPID, PILLAR CMP, PILLAR CBC #### [address] Employee Complete Blood Coun ton 08-21-2025 Mean Corpuscular HGB Conc 34.0 g/dL Normal 32.0-35.0 [facility] Comment on above: Performed By: #### P ILLAR LIPID, PILLAR CMP, PILLAR CBC #### [address] NRBC% 0.1 /100{WBC} Normal 0-0.5 [facility] Comment on above: Performed By: #### P ILLAR LIPID, PILLAR CMP, PILLAR CBC #### [facility] [address] White Blood Count 4.8 [CFU]/mL Normal 3.8-11.6 [facility] Comment on above: Performed By: #### P ILLAR LIPID, PILLAR CMP, PILLAR CBC #### [facility] [address] Employee Lipid ProfileOrdere d By: Marvel Panchal on 08-21-2025 Cholesterol [Mass/Vol] 112 mg/dL Low 140-200 [facility] Comment on above: Result Comment: Chol less than 200 mg/dl low risk Chol 201-239 mg/dl borderline risk Chol 240 mg/dl and greater high risk Performed By: #### P ILLAR LIPID, PILLAR CMP, PILLAR CBC #### [facility] [address] Chol less than 200 m g/dl low riskChol 201-239 mg/dl borderline riskChol 240 mg/dl and greater high risk Cholesterol in HDL [Mass/Vol] 41 mg/dL Normal 23-92 [facility] Comment on above: Result Comment: HDL CHOL ATP-III CLASSIFICATION Cardiovascular Risk HDL > or equal to 60 mg/dL LOW HDL < 40 mg/dL HIGH Performed By: #### P ILLAR LIPID, PILLAR CMP, PILLAR CBC #### [facility] [address] HDL CHOL ATP-III CLA SSIFICATION Cardiovascular RiskHDL > or equal to 60 mg/dL LOWHDL < 40 mg/dL HIGH Cholesterol.total/Chol esterol in HDL [Mass ratio] 2.7 {ratio} Normal <5.0 [facility] Comment on above: Result Comment: PERF ORMED BY: [place] [address] PATHOLOGIST [employer] SUPER[employer] TAMIE WOLFE M.D. Performed By: #### P ILLAR LIPID, PILLAR CMP, PILLAR CBC #### [facility] [address] Employee Lipid Profileon LDL Cholesterol,Calculated 61 mg/dL Normal 0-100 [facility] Comment on above: Result Comment: LDL ATP III CLASSIFICATION LDL less than 100 mg/dL Optimal LDL 100-129 mg/dL Near or above optimal LDL 130-159 mg/dL Borderline high LDL 160-189 mg/dL High LDL greater than 189 mg/dL Very high Performed By: #### P ILLAR LIPID, PILLAR CMP, PILLAR CBC #### [facility] [address] Triglyceride w/Reflex 48 mg/dL Normal 0-149 [facility] Comment on above: Result Comment: TRIG ATP III CLASSIFICATION TRIG less than 150 mg/dL Normal TRIG 150-199 mg/dL Borderline high TRIG 200-500 mg/dL High TRIG greater than 500 mg/dL Very high Standard traceable to the Center for Disease Conrtrol and Prevention (CDC) test method. Performed By: #### P ILLAR LIPID, PILLAR CMP, PILLAR CBC #### [facility] [address] VLDL CHOLESTEROL 9 mg/dL Normal [facility] Comment on above: Performed By: #### P ILLAR LIPID, PILLAR CMP, PILLAR CBC #### [facility] [address] [place] [id number] [facility] Glomerular filtration rate [ Volume Rate/Area] in Serum, Plasma or Blood by CreatinineOrdered By: Marvel Panchal on 08-21-2025 Glomerular filtration rate [Volume Rate/Area] in Serum, Plasma or Blood by Creatinine > 60.0 mL/Min [facility] Leukocytes [#/volume] correc jass for nucleated erythrocytes in Blood by Automated counOrdered By: Marvel Panchal on 08-21-2025 WBC corrected for nucl RBC Auto (Bld) [#/Vol] 4.8 10*3/uL 3.8-11.6 [facility] MCHC Auto (RBC) [Mass/Vol]Or dered By: Marvel Panchal on 08-21-2025 MCHC (RBC) [Mass/Vol] 34.0 g/dL 32.0-35.0 [facility] No Panel InformationOrdered By: Marvel Panchal on 08-21-2025 Pharmacy Creatinine Clearance (Chem N/A [facility] Nucleated erythrocytes [Pres ence] in Blood by Automated countOrdered By: Marvel Panchal on 08-21-2025 Nucleated RBC Auto Ql (Bld) 0.1 /100{WBC} 0-0.5 [facility] Triglyceride [Mass/volume] i n Serum or PlasmaOrdered By: Marvel Panchal on 08-21-2025 Triglyceride [Mass/Vol] 48 mg/dL 0-149 [facility] Comment on above: TRIG ATP III CLASSIF ICATIONTRIG less than 150 mg/dL NormalTRIG 150-199 mg/dL Borderline highTRIG 200-500 mg/dL High TRIG greater than 500 mg/dL Very highStandard traceable to the Center for Disease Conrtrol and Prevention (CDC) test method. ALL T3 FREEon 08-14-2025 Free T3 [Mass/Vol] 2 pg/mL Low 2.18 - 3. 98 pg/mL [facility] Interpretation and review of laboratory results Abnormal [facility] ALL THYROXINE (T4)on 025 T4 [Mass/Vol] 8.7 ug/dL 4.80 - 13.90 ug/dL [facility] No Panel Informationon 08-14 [facility] TBH GLUCOSE BLOODon 08-14-20 25 Glucose [Mass/Vol] 83 mg/dL 74 - 106 mg/dL [facility] IGP,APTIMA HPV,AGE GDLNon AGE GDLN ACOG TESTING Note . [facility] Comment on above: TESTS RESULT FLAG UN ITS REF RANGE LAB Clinician Provided Cytology Information Source.............Cervix;Endocervix No. of containers..01 ThinPrep Vial Age Algo ACOG Lauryn... FLAG LEGEND: L-Low Normal,H-High Normal,LL-Alert Low,HH-Alert High <-Panic Low,>-Panic High,A-Abnormal,AA-Critical Abnormal Performed at: 01 =[address] [id number] Corrine Monique MD, HPV APTIMA Negative Negative [facility] Comment on above: This nucleic acid am plification test detects fourteen high- risk HPV types (16,18,31,33,35,39,45,51,52,56,58,59,66,68) without differentiation. Performed at: =[address] [id number] [employer]: Corrine Monique MD, Phone: [phone] Performed at: [address] [id number] [employer]: Corrine Monique MD, Phone: [phone] IGP, APTIMA HPV, RFX 16/18,45 Note . [facility] Comment on above: TESTS RESULT FLAG UN ITS REF RANGE LAB DIAGNOSIS: 02 NEGATIVE FOR INTRAEPITHELIAL LESION OR MALIGNANCY. Specimen adequacy: 02 Satisfactory for evaluation. Endocervical and/or squamous metaplastic cells (endocervical component) are present. Performed by: 02 Mary Knight, Customer Agent ([facility]) . 02 Note: Note 02 The [...] <-Panic Low,>-Panic High,A-Abnormal,AA-Critical Abnormal Performed at: 02 [address] [facility] [address] [address] Corrine Monique MD, BRUSH-SPATULA CERVIX ENDOCERVIX [facility] RECURRENT VAGINITIS (HTRX)on 07-21-2025 ATOPOBIUM VAGINAE 0 [facility] ATOPOBIUM VAGINAE Not detected [facility] BVAB 2,3 (BACTERIAL VAGINOSIS ASSOCIATED BACTERIA 2, 3); MOBILUNCUS SPP 0 [facility] BVAB 2,3 (BACTERIAL VAGINOSIS ASSOCIATED BACTERIA 2, 3); MOBILUNCUS SPP Not detected [facility] ANGELIA ALBICANS, PARAPSILOSIS, TROPICALIS 0 [facility] ANGELIA ALBICANS, PARAPSILOSIS, TROPICALIS Not detected [facility] ANGELIA GLABRATA 0 [facility] ANGELIA GLABRATA Not detected [facility] ANGELIA KRUSEI 0 [facility] ANGELIA KRUSEI Not detected [facility] CHLAMYDIA TRACHOMATIS 0 [facility] CHLAMYDIA TRACHOMATIS Not detected [facility] GARDNERELLA VAGINALIS 0 [facility] GARDNERELLA VAGINALIS Not detected [facility] MEGASPHAERA (TYPES 1, 2) 0 [facility] MEGASPHAERA (TYPES 1, 2) Not detected [facility] MYCOPLASMA GENITALIUM 0 [facility] MYCOPLASMA GENITALIUM Not detected [facility] NEISSERIA GONORRHOEAE 0 [facility] NEISSERIA GONORRHOEAE Not detected [facility] TRICHOMONAS VAGINALIS 0 [facility] TRICHOMONAS VAGINALIS Not detected [facility] HCG ( test) Ql (U)o n 07-20-2025 Interpretation and review of laboratory results Normal [facility] Preg Test, Ur Negative Negative [facility] Urinalysis macro (dipstick) panel (U)on 07-20-2025 Bilirubin, UA Negative Negative - 4(70) +++ mg/dL [facility] Blood, UA Negative Negative - 50 Ervin/mcL [facility] Clarity, UA Clear [facility] Color, UA Straw [facility] Glucose, UA Negative Negative - 2000(110) ++++ mg/dL [facility] Interpretation and review of laboratory results Abnormal [facility] Ketones, UA Negative Negative - 160(16) ++++ mg/dL [facility] Leukocytes, UA Positive Negative - 500+++ Cathi/mcL [facility] Nitrite, UA Negative Negative - Positive [facility] pH, UA 6 5 - 9 [facility] Protein, UA Negative Negative - 1999(20) ++++ mg/dL [facility] Spec Grav, UA 1.025 1 - 1.03 [facility] Urobilinogen, UA 1.0 0.2 - 12 mg/dL [facility] Ambulatory Visit Summaryon 0 - Ambulatory Visit Summary Ambulatory Visit Summary ZARA [...] 4 mg Tab) Procedures Performed EGD - Esophagogastroduodeno scopy, Tonsillectomy. Discharge Vitals Temperature (Oral) 36.3 ???C [...] Traumatic, No, Blood in stool Coccyx pain, pp_set_radiology_subs pecialty, [facility] Medications What How Much When Instructions [...] for choosing us for your care. Normal [facility] CBC w/ Auto Diffon 5 Basophils/100 WBC (Bld) 0.7 % Normal 0.0-2.0 [facility] Comment on above: Performed By: #### 2 [id number] #### [facility] [address] [place] [address] Basophils/Leukocytes Auto (Bld) [Pure # fraction] 0.0 E9/L Normal 0.0-0.2 [facility] Comment on above: Performed By: #### 2 [id number] #### [facility] [address] [place] [address] Eosinophils (Bld) [#/Vol] 0.0 E9/L Normal 0.0-0.5 [facility] Comment on above: Performed By: #### 2 [id number] #### [facility] [address] [place] [address] Eosinophils/100 WBC (Bld) 0.6 % Normal 0.0-8.0 [facility] Comment on above: Performed By: #### 2 [id number] #### [facility] [address] [place] [address] Erythrocyte distribution width (RBC) [Ratio] 14.5 % High 10.9-14.2 [facility] Comment on above: Performed By: #### 2 [id number] #### [facility] [address] [place] [address] Hematocrit (Bld) [Volume fraction] 43.2 % Normal 34.0-46.0 [facility] Comment on above: Performed By: #### 2 [id number] #### [facility] [address] [place] [address] Hemoglobin (Bld) [Mass/Vol] 14.7 g/dL Normal 12.0-16.0 [facility] Comment on above: Performed By: #### 2 [id number] #### [facility] [address] [place] [address] Lymphocytes (Bld) [#/Vol] 2.1 E9/L Normal 1.0-4.0 [facility] Comment on above: Performed By: #### 2 [id number] #### [facility] [address] [place] [address] Lymphocytes/100 WBC (Bld) 34.2 % Normal 14.0-50.0 [facility] Comment on above: Performed By: #### 2 [id number] #### [facility] [address] [place] [address] MCH (RBC) [Entitic mass] 30.8 pg Normal 27.0-34.0 [facility] Comment on above: Performed By: #### 2 [id number] #### [facility] [address] [place] [address] MCHC (RBC) [Mass/Vol] 33.9 g/dL Normal 31.4-36.0 [facility] Comment on above: Performed By: #### 2 [id number] #### [facility] [address] [place] [address] MCV (RBC) [Entitic vol] 90.8 fL Normal 80.0-100.0 [facility] Comment on above: Performed By: #### 2 [id number] #### [facility] [address] [place] [address] Monocytes (Bld) [#/Vol] 0.5 E9/L Normal 0.2-1.0 [facility] Comment on above: Performed By: #### 2 552596 #### [facility] [address] [place] [address] Neutrophils (Bld) [#/Vol] 3.4 E9/L Normal 2.0-7.5 [facility] Comment on above: Performed By: #### 2 [id number] #### [facility] [address] [place] [address] Neutrophils/100 WBC (Bld) 57.0 % Normal 36.0-75.0 [facility] Comment on above: Performed By: #### 2 471011 #### [facility] [address] [place] [address] Platelet mean volume (Bld) [Entitic vol] 10.2 fL Normal 6.4-10.8 [facility] Comment on above: Performed By: #### 2 [id number] #### [facility] [address] [place] [address] Platelets (Bld) [#/Vol] 185.0 E9/L Normal 150.0-500.0 [facility] Comment on above: Performed By: #### 2 285237 #### [facility] [address] [place] [address] RBC (Bld) [#/Vol] 4.8 E12/L Normal 4.3-5.9 [facility] Comment on above: Performed By: #### 2 796187 #### [facility] [address] [place] [address] WBC corrected for nucl RBC Auto (Bld) [#/Vol] 6.0 E9/L Normal 4.0-11.0 [facility] Comment on above: Performed By: #### 2 [id number] #### [facility] [address] [place] [address] [place] [address] CMPon 02-22-2025 Albumin [Mass/Vol] 4.5 g/dL Normal 3.3-5.0 [facility] Comment on above: Performed By: #### 2 207992 #### [facility] [address] [place] [address] Albumin/Globulin (S) [Mass conc ratio] 1.6 Normal 1.1-2.2 [facility] Comment on above: Performed By: #### 2 739050 #### [facility] [address] [place] [address] ALP [Catalytic activity/Vol] 48 Int._Unit/L Normal 21-98 [facility] Comment on above: Performed By: #### 2 824237 #### [facility] [address] [place] [address] ALT No additional P-5'-P [Catalytic activity/Vol] 14 Int._Unit/L Normal 6-46 [facility] Comment on above: Performed By: #### 2 180741 #### [facility] [address] [place] [address] Anion gap [Moles/Vol] 10 mmol/L Normal 6-16 [facility] Comment on above: Performed By: #### 2 058684 #### [facility] [address] [place] [address] AST [Catalytic activity/Vol] 17 Int._Unit/L Normal 5-43 [facility] Comment on above: Performed By: #### 2 789441 #### [facility] [address] [place] [address] Bilirubin [Mass/Vol] 0.8 mg/dL Normal 0.0-1.1 [facility] Comment on above: Performed By: #### 2 679509 #### [facility] [address] [place] [address] Calcium [Mass/Vol] 9.1 mg/dL Normal 8.9-11.1 [facility] Comment on above: Performed By: #### 2 552627 #### [facility] [address] [place] [address] Chloride [Moles/Vol] 106 mmol/L Normal 101-111 [facility] Comment on above: Performed By: #### 2 083423 #### [facility] [address] [place] [address] CO2 [Moles/Vol] 25 mmol/L Normal 21-31 [facility] Comment on above: Performed By: #### 2 349598 #### [facility] [address] [place] [address] Creatinine [Mass/Vol] 0.7 mg/dL Normal 0.5-1.3 [facility] Comment on above: Performed By: #### 2 992921 #### [facility] [address] [place] [address] Globulin (S) [Mass/Vol] 2.9 g/dL Normal 1.4-4.0 [facility] Comment on above: Performed By: #### 2 962997 #### [facility] [address] [place] [address] Glucose [Mass/Vol] 86 mg/dL Normal 55-199 [facility] Comment on above: Performed By: #### 2 868030 #### [facility] [address] [place] [address] Potassium [Moles/Vol] 4.5 mmol/L Normal 3.5-5.3 [facility] Comment on above: Performed By: #### 2 949760 #### [facility] [address] [place] [address] Protein [Mass/Vol] 7.4 g/dL Normal 6.0-7.8 [facility] Comment on above: Performed By: #### 2 955550 #### [facility] [address] [place] [address] Sodium [Moles/Vol] 136 mmol/L Normal 135-145 [facility] Comment on above: Performed By: #### 2 122354 #### [facility] [address] [place] [address] Urea nitrogen [Mass/Vol] 12 mg/dL Normal 5-21 [facility] Comment on above: Performed By: #### 2 878865 #### [facility] [address] [place] [address] Urea nitrogen/Creatinine [Mass ratio] 17 No Units Normal 10-20 [facility] Comment on above: Performed By: #### 2 406778 #### [facility] [address] [place] [address] Family Medicine Office/Clini c Noteon 02-22-2025 Family [...] Diff Comprehensive Metabolic Panel Lab Specimen Collect 89721 Lipid Panel TSH With T4fr Reflex 2. Blood in stool (K92.1: Melena) - Recommend MiraLAX as a stool softener to alleviate symptoms linked with straining. - Initiate referral to gastroenterology for detailed evaluation due to family history considerations. - Continue assessing stool softening impact and adjust interventions as necessary. [place] [facility] [place] Referral XR Sacrum and Coccyx Min 2 Views 3. Constipation (K59.00: Constipation, unspecified) - Start MiraLAX - Encouraged to drink at least 64 ounces of water per day Ordered: polyethylene glycol 3350, 17 gm, Oral, Daily, # 10 EA, Refills(s) 1, Pharmacy: [id number], 159, cm, 02/22/25 7:44:00 EDT, Height/Length Dosing, 59.2, kg, 02/22/25 7:44:00 EDT, Weight Dosing 4. Coccyx pain (M53.3: Sacrococcygeal disorders, not elsewhere classi (more content not included)... Normal [facility] Comment on above: Result Comment: Elec tronically Signed By: HAMMAD SUTTON CNP\.br\Date and Time Signed: 02/22/25 09:52 EDT Lipid Panelon 02-22-2025 Cholesterol [Mass/Vol] 128 mg/dL Normal 120-200 [facility] Comment on above: Performed By: #### 2 [id number] #### [facility] [address] [place] [address] Cholesterol in HDL [Mass/Vol] 50 mg/dL Invalid Interpretation Code [facility] Comment on above: Result Comment: '>= 60 LOW RISK' '<= 40 HIGH RISK' Performed By: #### 2 [id number] #### [facility] [address] [place] [address] Cholesterol in LDL [Mass/Vol] 80 mg/dL Normal <=129 [facility] Comment on above: Performed By: #### 2 [id number] #### [facility] [address] [place] [address] Cholesterol in VLDL [Mass/Vol] 16 mg/dL Normal 7-40 [facility] Comment on above: Performed By: #### 2 490012 #### [facility] [address] [place] [address] Triglyceride [Mass/Vol] 82 mg/dL Normal <=149 [facility] Comment on above: Performed By: #### 2 556543 #### [facility] [address] [place] [address] TSH With T4fr Reflexon 02-22 TSH Qn 2.28 m[IU]/L Normal 0.34-5.60 [facility] Comment on above: Performed By: #### 1 [id number] #### [facility] [address] [place] [address] eGFRon 02-22-2025 eGFR 118 mL/min/1.73 m2 Normal >=59 [facility] Comment on above: Performed By: #### 1 [id number] #### [facility] [address] [place] [address] C Urineon 09-08-2024 Bacteria identified Cx Nom [...] Locations R1: [facility], [address] [place] [address], [address]- , , Normal [facility] Comment on above: Performed By: #### 2 [id number] #### [facility] [address] [place] [address] Ambulatory Visit Summaryon 1 Ambulatory Visit Summary Ambulatory Visit Summary ZARA GAO :1995 Visit Date:09/06/2024 Ambulatory Visit Instructions Your Diagnosis UTI symptoms Encounter to establish care Your Care Team Attending Physician - HAMMAD SUTTON CNP Primary Care Physician - Alla Beatty MD Procedures Performed EGD - Esophagogastroduodeno scopy, Tonsillectomy. Discharge Vitals Temperature (Oral) 36.8 ?C [...] you for choosing us for your care. Asya [facility] Family Medicine Office/Clini c Noteon 09-06-2024 Family [...] day(s), # 10 tab(s), Refills(s) 0, Pharmacy: [facility]/pharmacy #[id number], 159, cm, 09/06/24 13:14:00 EDT, Height/Length Dosing, 63, kg, 09/06/24 13:14:00 EDT, Weight Dosing Urine Culture Urnls Dip Stick Auto w/o Microscopy POC 84397 2. Encounter to establish care (Z76.89: Persons encountering health services in other specified circumstances) Ordered: ciprofloxacin, 500 mg = 1 tab(s), Oral, q12hr, X 5 day(s), # 10 tab(s), Refills(s) 0, Pharmacy: [facility]/pharmacy #[id number], 159, cm, 09/06/24 13:14:00 EDT, Height/Length Dosing, 63, kg, 09/06/24 13:14:00 EDT, Weight Dosing 3. BMI 24.0-24.9, adult (Z68.24: Body mass index [BMI] 24.0-24.9, adult) Monitor weight at each visit Encourage portion control and daily exercise Ordered: ciprofloxacin, 500 mg = 1 tab(s), Oral, q12hr, X 5 day(s), # 10 tab(s), Refills(s) 0, Pharmacy: [facility]/pharmacy #[id number], 159, cm, 09/06/24 13:14:00 EDT, Height/Length Dosing, 63, kg, 09/06/24 13:14:00 EDT, Weight Dosing 4. Nonsmoker (Z78.9: Other specified health status) Encouraged to continue as a non-smoker Ordered: ciprofloxacin, 500 mg = 1 tab(s), Oral, q12hr, X 5 day(s), # 10 tab(s), Refills(s) 0, Pharmacy: [facility]/pharmacy #[id number], 159, cm, 09/06/24 13:14:00 EDT, Height/Length Dosing, 63, kg, 09/06/24 13:14:00 EDT, Weight Dosing Follow-up With When Contact Information HAMMAD SUTTON CNP, FAM Within 1 year [address] [place] [address] Business (1) Additional Instructions: Well check Problem List/Past Medical History Ongoing (more content not included)... Normal [facility] Comment on above: Result Comment: Elec tronically Signed By: HAMMAD SUTTON CNP\Date and Time Signed: 09/06/24 14:04 EDT ALL CBC WITH AUTO DIFFon BASOPHILS ABSOLUTE AUTO 0.0 [facility] Basophils/100 WBC (Bld) 0.3 % 0.2 - 2.0 % [facility] Eosinophils/100 WBC (Bld) 0.6 % Low 0.9 - 7.0 % [facility] Erythrocyte distribution width (RBC) [Ratio] 13.3 % 11.0 - 15.0 % [facility] Hematocrit (Bld) [Volume fraction] 36.6 % 36.0 - 48.0 % [facility] Hemoglobin (Bld) [Mass/Vol] 12.2 g/dL 12.0 - 16.0 g/dL [facility] IMMATURE GRANULOCYTES ABS AUTO 0.04 High [facility] Immature granulocytes/100 WBC (Bld) 0.5 % 0.0 - 0.5 % [facility] Interpretation and review of laboratory results Abnormal [facility] LYMPHOCYTES ABSOLUTE AUTO 2.0 [facility] Lymphocytes/100 WBC (Bld) 23.3 % 20.5 - 60.0 % [facility] MCH (RBC) [Entitic mass] 31.5 pg 26.7 - 34.0 pg [facility] MCHC (RBC) [Mass/Vol] 33.3 g/dL 29.9 - 35.2 g/dL [facility] MCV (RBC) [Entitic vol] 94.6 fL 81.0 - 99.0 fL [facility] MONOCYTES ABSOLUTE AUTO 0.5 [facility] Monocytes/100 WBC (Bld) 6.3 % 1.7 - 12.0 % [facility] NEUTROPHILS ABSOLUTE AUTO 6.0 [facility] Neutrophils/100 WBC (Bld) 69.0 % 43.0 - 75.0 % [facility] Platelet mean volume (Bld) [Entitic vol] 11.3 fL 9.5 - 13.5 fL [facility] TBH EO # 0.1 [facility] TB PLT 208 [facility] RBC 3.87 Low [facility] WBC 8.6 [facility] CHLAMYDIA/GONOCOCCUS BACILIO (SW AB/URINE/PAPon 11-07-2022 Chlamydia trachomatis, BACILIO Negative Normal Negative [facility] Comment on above: Performed By: #### L IPID, CMP, T7, BNP, TSH #### [facility] [address], [place] [address] Dr. David Das Neisseria gonorrhoeae, BACILIO Negative Normal Negative [facility] Comment on above: Performed By: #### L IPID, CMP, T7, BNP, TSH #### [facility] [address], [place] [address] Dr. David Das US PELVIS AND TRANSVAGon [...] SONIA CHEN Date: 2022-11-06 17:13 Normal [facility] VAGINITIS/VAGINOSIS DNA PROB Farhan 11-06-2022 Angelia species Negative Normal Negative [facility] Comment on above: Performed By: #### V AGINT #### [facility] [address], [place] [address] Dr. David Das Gardnerella vaginalis Negative Normal Negative [facility] Comment on above: Performed By: #### V AGINT #### [facility] [address] [place] [address] Dr. David Das Trichomonas vaginalis Negative Normal Negative [facility] Comment on above: Performed By: #### V AGINT #### [facility] [address] [place] [address] Dr. David Das INSULINon 11-04-2022 Insulin 17.4 uIU/mL Normal 2.6-24.9 [facility] Comment on above: Performed By: #### I NSULIN #### [facility] [address] [place] [address] Dr. David Das CBC AUTO DIFFon 11-03-2022 BASO # 0.0 103/ul Normal 0.0-0.1 [facility] Comment on above: Performed By: #### L IPID, CMP, T7, BNP, TSH #### [facility] [address] [place] [address] Dr. David Das Basophils/100 WBC (Bld) 0.4 % Normal 0.2-2.0 [facility] Comment on above: Performed By: #### L IPID, CMP, T7, BNP, TSH #### [facility] [address] [place] [address] Dr. David Das EO # 0.1 103/ul Normal 0.0-0.7 [facility] Comment on above: Performed By: #### L IPID, CMP, T7, BNP, TSH #### [facility] [address] [place] [address] Dr. David Das Eosinophils/100 WBC (Bld) 1.4 % Normal 0.9-7.0 [facility] Comment on above: Performed By: #### L IPID, CMP, T7, BNP, TSH #### [facility] [address] [place] [address] Dr. David Das Erythrocyte distribution width (RBC) [Ratio] 12.4 % Normal 11.0-15.0 [facility] Comment on above: Performed By: #### L IPID, CMP, T7, BNP, TSH #### [facility] [address] [place] [address] Dr. David Das Hematocrit (Bld) [Volume fraction] 43.8 % Normal 36.0-48.0 [facility] Comment on above: Performed By: #### L IPID, CMP, T7, BNP, TSH #### [facility] [address] [place] [address] [address] David Das Hemoglobin (Bld) [Mass/Vol] 14.6 g/dL Normal 12.0-16.0 [facility] Comment on above: Performed By: #### L IPID, CMP, T7, BNP, TSH #### [facility] [address] [address] [address] David Das IG # 0.01 10e3/ul Normal 0.00-0.03 [facility] Comment on above: Performed By: #### L IPID, CMP, T7, BNP, TSH #### [facility] [address] [place] [address] Dr. David Das IG % 0.2 % Normal 0.0-0.5 [facility] Comment on above: Performed By: #### L IPID, CMP, T7, BNP, TSH #### [facility] [address] [address] [address] David Das LYMPH # 1.8 103/ul Normal 1.2-3.8 [facility] Comment on above: Performed By: #### L IPID, CMP, T7, BNP, TSH #### [facility] [address] [address] [address] David Das Lymphocytes/100 WBC (Bld) 33.3 % Normal 20.5-60.0 [facility] Comment on above: Performed By: #### L IPID, CMP, T7, BNP, TSH #### [facility] [address] [address] [address] David Das MANUAL DIFF REQ NO Normal [facility] Comment on above: Performed By: #### L IPID, CMP, T7, BNP, TSH #### [facility] [address] [address] [address] David Das MCH (RBC) [Entitic mass] 30.7 pg Normal 26.7-34.0 [facility] Comment on above: Performed By: #### L IPID, CMP, T7, BNP, TSH #### [facility] [address] [place] [address] Dr. David Das MCHC (RBC) [Mass/Vol] 33.3 g/dL Normal 29.9-35.2 [facility] Comment on above: Performed By: #### L IPID, CMP, T7, BNP, TSH #### [facility] [address] [place] [address] Dr. David Das MCV (RBC) [Entitic vol] 92.0 fL Normal 81.0-99.0 [facility] Comment on above: Performed By: #### L IPID, CMP, T7, BNP, TSH #### [facility] [address] [place] [address] Dr. David Das MONO # 0.4 103/ul Normal 0.3-0.8 [facility] Comment on above: Performed By: #### L IPID, CMP, T7, BNP, TSH #### [facility] [address] [place] [address] Dr. David Das Monocytes/100 WBC (Bld) 7.6 % Normal 1.7-12.0 [facility] Comment on above: Performed By: #### L IPID, CMP, T7, BNP, TSH #### [facility] [address] [place] [address] Dr. David Das NEUT # 3.2 103/ul Normal 1.4-6.5 [facility] Comment on above: Performed By: #### L IPID, CMP, T7, BNP, TSH #### [facility] [address] [place] [address] Dr. David Das Neutrophils/100 WBC (Bld) 57.1 % Normal 43.0-75.0 [facility] Comment on above: Performed By: #### L IPID, CMP, T7, BNP, TSH #### [facility] [address] [place] [address] Dr. David Das Platelet mean volume (Bld) [Entitic vol] 10.5 fL Normal 9.5-13.5 [facility] Comment on above: Performed By: #### L IPID, CMP, T7, BNP, TSH #### [facility] [address] [place] [address] Dr. David Das PLT 200 103/ul Normal 150-450 [facility] Comment on above: Performed By: #### L IPID, CMP, T7, BNP, TSH #### [facility] [address] [place] [address] Dr. David Das RBC 4.76 106/ul Normal 4.20-5.40 [facility] Comment on above: Performed By: #### L IPID, CMP, T7, BNP, TSH #### [facility] [address] [place] [address] Dr. David Das WBC 5.5 103/ul Normal 4.0-11.0 [facility] Comment on above: Performed By: #### L IPID, CMP, T7, BNP, TSH #### [facility] [address] [place] [address] Dr. David Das FREE THYROXINE INDEX T7on FTI 2.38 Normal 1.30-4.50 [facility] Comment on above: Performed By: #### L IPID, CMP, T7, BNP, TSH #### [facility] [address] [place] [address] Dr. David Das T3U 33.0 % Normal 30.0-39.0 [facility] Comment on above: Performed By: #### L IPID, CMP, T7, BNP, TSH #### [facility] [address] [place] [address] Dr. David Das T4 [Mass/Vol] 7.20 ug/dL Normal 4.80-13.90 [facility] Comment on above: Performed By: #### L IPID, CMP, T7, BNP, TSH #### [facility] [address] [place] [address] Dr. David Das GLYCOHEMOGLOBIN A1Con 2021 ADA RECOMMENDATION SEE BELOW Normal [facility] Comment on above: Result Comment: ADA RECOMMENDED LIMIT 4.0 - 6.0 ADA THERAPEUTIC TARGET < 7.0 ACTION SUGGESTED > 7.0 Performed By: #### L IPID, CMP, T7, BNP, TSH #### [facility] [address] [address] [address] David Das Glucose [Mass/Vol] 103 mg/dL Normal [facility] Comment on above: Performed By: #### L IPID, CMP, T7, BNP, TSH #### [facility] [address] [address] [address] David Das HbA1c (Bld) [Mass fraction] 5.2 % Normal 4.5-6.2 [facility] Comment on above: Performed By: #### L IPID, CMP, T7, BNP, TSH #### [facility] [address] [place] [address] Dr. David Das IRONon 11-03-2022 Iron [Mass/Vol] 117.0 ug/dL Normal 50.0-170.0 [facility] Comment on above: Performed By: #### L IPID, CMP, T7, BNP, TSH #### [facility] [address] [place] [address] Dr. David Das LIPID PROFILEon 11-03-2022 CHOL-HDL RATIO NORM SEE BELOW Normal [facility] Comment on above: Result Comment: 3.3 - 4.4 LOW RISK 4.4 - 7.1 AVERAGE RISK 7.1 - 11.0 MODERATE RISK >11.0 HIGH RISK Performed By: #### L IPID, CMP, T7, BNP, TSH #### [facility] [address] [address] [address] David Das Cholesterol [Mass/Vol] 120 mg/dL Normal <=200 [facility] Comment on above: Performed By: #### L IPID, CMP, T7, BNP, TSH #### [facility] [address] [address] [address] David Das Cholesterol in HDL [Mass/Vol] 54 mg/dL Normal 40-60 [facility] Comment on above: Performed By: #### L IPID, CMP, T7, BNP, TSH #### [facility] [address] [address] [address] David Das Cholesterol in LDL [Mass/Vol] 56.8 mg/dL Normal [facility] Comment on above: Performed By: #### L IPID, CMP, T7, BNP, TSH #### [facility] [address] [address] [address] David Das Cholesterol.total/Chol esterol in HDL [Mass ratio] 2.2 {ratio} Normal [facility] Comment on above: Performed By: #### L IPID, CMP, T7, BNP, TSH #### [facility] [address] [address] [address] David Das HDL NORMAL > or = 60 mg/dl - LO W CARDIOVASCULAR RISK <40 mg/dl - HIGH CARDIOVASCULAR RISK Normal [facility] Comment on above: Performed By: #### L IPID, CMP, T7, BNP, TSH #### [facility] [address] [address] [address] David aDs LDL CALC NORMAL SEE BELOW Normal [facility] [facility] Comment on above: Result Comment: <100 mg/dl OPTIMAL 100 - 129 mg/dl NEAR OR ABOVE OPTIMAL 130 - 159 mg/dl BORDERLINE HIGH 160 - 189 mg/dl HIGH >190 mg/dl VERY HIGH Performed By: #### L IPID, CMP, T7, BNP, TSH #### [facility] [address] [address] [address] David Das Triglyceride [Mass/Vol] 46 mg/dL Normal <=150 [facility] Comment on above: Performed By: #### L IPID, CMP, T7, BNP, TSH #### [facility] [address] [address] [address] David Das VLDL CALC 9.2 mg/dL Normal [facility] Comment on above: Performed By: #### L IPID, CMP, T7, BNP, TSH #### [facility] [address] [address] [address] David Das PROF 14(COMP METB)on 022 Albumin [Mass/Vol] 4.1 g/dL Normal 3.4-5.0 [facility] Comment on above: Performed By: #### L IPID, CMP, T7, BNP, TSH #### [facility] [address] [place] [address] Dr. David Das Albumin/Globulin [Mass ratio] 1.2 {ratio} Normal [facility] Comment on above: Performed By: #### L IPID, CMP, T7, BNP, TSH #### [facility] [address] [place] [address] Dr. David Das ALP [Catalytic activity/Vol] 50 U/L Normal 46-116 [facility] Comment on above: Performed By: #### L IPID, CMP, T7, BNP, TSH #### [facility] [address] [place] [address] Dr. David Das ALT [Catalytic activity/Vol] 15 U/L Normal 14-59 [facility] Comment on above: Performed By: #### L IPID, CMP, T7, BNP, TSH #### [facility] [address] [place] [address] Dr. David Das Anion gap [Moles/Vol] 11.0 mmol/L Normal [facility] Comment on above: Performed By: #### L IPID, CMP, T7, BNP, TSH #### [facility] [address] [place] [address] Dr. David Das AST [Catalytic activity/Vol] 16 U/L Normal 15-37 [facility] Comment on above: Performed By: #### L IPID, CMP, T7, BNP, TSH #### [facility] [address] [place] [address] Dr. David Das Bilirubin [Mass/Vol] 0.5 mg/dL Normal 0.2-1.0 [facility] Comment on above: Performed By: #### L IPID, CMP, T7, BNP, TSH #### [facility] [address] [place] [address] Dr. David Das Calcium [Mass/Vol] 8.7 mg/dL Normal 8.5-10.1 [facility] Comment on above: Performed By: #### L IPID, CMP, T7, BNP, TSH #### [facility] [address] [address] [address] David Das Chloride [Moles/Vol] 104 mmol/L Normal 98-107 [facility] Comment on above: Performed By: #### L IPID, CMP, T7, BNP, TSH #### [facility] [address] [place] [address] Dr. David Das CO2 [Moles/Vol] 31.4 mmol/L Normal 21.0-32.0 [facility] Comment on above: Performed By: #### L IPID, CMP, T7, BNP, TSH #### [facility] [address] [place] [address] Dr. David Das Creatinine [Mass/Vol] 0.64 mg/dL Normal 0.55-1.02 [facility] Comment on above: Performed By: #### L IPID, CMP, T7, BNP, TSH #### [facility] [address] [place] [address] Dr. David Das EGFR-AF CYPRIOT >60 Normal >=60 [facility] Comment on above: Performed By: #### L IPID, CMP, T7, BNP, TSH #### [facility] [address] [place] [address] Dr. David Das EGFR-NON AF CYPRIOT >60 Normal >=60 [facility] Comment on above: Performed By: #### L IPID, CMP, T7, BNP, TSH #### [facility] [address] [address] [address] David Das Globulin (S) [Mass/Vol] 3.4 g/dL Normal [facility] Comment on above: Performed By: #### L IPID, CMP, T7, BNP, TSH #### [facility] [address] [place] [address] Dr. David Das Glucose [Mass/Vol] 92 mg/dL Normal 74-106 [facility] Comment on above: Performed By: #### L IPID, CMP, T7, BNP, TSH #### [facility] [address] [place] [address] Dr. David Das Potassium [Moles/Vol] 4.4 mmol/L Normal 3.5-5.1 [facility] Comment on above: Performed By: #### L IPID, CMP, T7, BNP, TSH #### [facility] [address] [place] [address] Dr. David Das Protein [Mass/Vol] 7.5 g/dL Normal 6.4-8.2 [facility] Comment on above: Performed By: #### L IPID, CMP, T7, BNP, TSH #### [facility] [address] [address] [address] David Das Sodium [Moles/Vol] 142 mmol/L Normal 136-145 [facility] Comment on above: Performed By: #### L IPID, CMP, T7, BNP, TSH #### [facility] [address] [place] [address] Dr. David Das Urea nitrogen [Mass/Vol] 11.0 mg/dL Normal 7.0-18.0 [facility] Comment on above: Performed By: #### L IPID, CMP, T7, BNP, TSH #### [facility] [address] [place] [address] Dr. David Das Urea nitrogen/Creatinine [Mass ratio] 17.2 mg/mg Normal [facility] Comment on above: Performed By: #### L IPID, CMP, T7, BNP, TSH #### [facility] [address] [place] [address] Dr. David Das TSHon 11-03-2022 TSH 1.923 uIU/mL Normal 0.358-3.740 [facility] Comment on above: Performed By: #### L IPID, CMP, T7, BNP, TSH #### [facility] [address] [place] [address] Dr. David Das Covid-19 PCR ([facility])on 05-17 SARS-CoV-2 (COVID-19) RNA BACILIO+probe Ql (Unsp spec) Detected Critically abnormal NOT DETECTED [facility] Comment on above: Result Comment: This test is not yet approved or cleared by the [place] FDA. When there are no FDA-approved or cleared tests available, and other criteria are met, FDA can make tests available under an emergency access mechanism called an Emergency Use Authorization (EUA). The EUA for this test is supported by the Route Inspector of Health and Human Service's declaration that [...] used). Performed By: #### C VDTBH #### [facility] [address] [place] [address] Dr. David Das PAP ACOG PANEL 2: 21 to 27on 05-23-2022 . . [facility] Comment on above: Performed By: #### L IPID, CMP, T7, BNP, TSH #### [facility] [address] [place] [address] Dr. David Das Age Gdln ACOG Testing - [facility] Comment on above: Performed By: #### L IPID, CMP, T7, BNP, TSH #### [facility] [address] [place] [address] Dr. David Das DIAGNOSIS: Comment [facility] Comment on above: Result Comment: NEGA TIVE FOR INTRAEPITHELIAL LESION OR MALIGNANCY. Performed By: #### L IPID, CMP, T7, BNP, TSH #### [facility] [address] [place] [address] Dr. David Das Methodology: Comment [facility] Comment on above: Result Comment: This liquid based ThinPrep(R) pap test was screened with the use of an image guided system. Performed By: #### L IPID, CMP, T7, BNP, TSH #### [facility] [address] [place] [address] Dr. David Das Note: Comment [facility] Comment on above: Result Comment: [...] L IPID, CMP, T7, BNP, TSH #### [facility] [address] [address] [address] David Das Performed by: Comment Normal [facility] Comment on above: Result Comment: Cayla Jay, Child Caregiver (ASCP) Performed By: #### L IPID, CMP, T7, BNP, TSH #### [facility] [address] [address] [address] David Das Reflex Criteria: Comment Normal [facility] Comment on above: Result Comment: The HPV DNA reflex criteria were not met with this specimen result therefore, no HPV testing was performed. . Performed By: #### L IPID, CMP, T7, BNP, TSH #### [facility] [address] [address] [address] David Das Specimen adequacy: Comment Normal [facility] Comment on above: Result Comment: Sati sfactory for evaluation. Endocervical and/or squamous metaplastic cells (endocervical component) are present. Areas of partially obscuring inflammatory exudate are present. Performed By: #### L IPID, CMP, T7, BNP, TSH #### [facility] [address] [address] [address] aDvid Das XR FOOT RT MIN 3 VIEWSon XR FOOT RT MIN 3 VIEWS IMAGES REVIEWED: XR FOOT RT MIN 3 VIEWS COMPARISON: None available. CLINICAL INDICATION: Pain, no injury. FINDINGS/IMPRESSION: Unremarkable radiographic appearance of the right foot. Electronically authenticated by: VIVIEN NOONAN Date: 2022-03-27 20:26 Normal [facility] BNPon 02-01-2022 Natriuretic peptide B (Bld) [Mass/Vol] 64.0 pg/mL Normal <=450.0 [facility] Comment on above: Performed By: #### L IPID, CMP, T7, BNP, TSH #### [facility] [address] [address] [address] David Das CBC AUTO DIFFon 02-01-2022 BASO # 0.0 103/ul Normal 0.0-0.1 [facility] Comment on above: Performed By: #### L IPID, CMP, T7, BNP, TSH #### [facility] [address] [place] [address] Dr. David Das Basophils/100 WBC (Bld) 0.4 % Normal 0.2-2.0 [facility] Comment on above: Performed By: #### L IPID, CMP, T7, BNP, TSH #### [facility] [address] [place] [address] Dr. David Das EO # 0.1 103/ul Normal 0.0-0.7 [facility] Comment on above: Performed By: #### L IPID, CMP, T7, BNP, TSH #### [facility] [address] [place] [address] Dr. David Das Eosinophils/100 WBC (Bld) 1.8 % Normal 0.9-7.0 [facility] Comment on above: Performed By: #### L IPID, CMP, T7, BNP, TSH #### [facility] [address] [place] [address] Dr. David Das Erythrocyte distribution width (RBC) [Ratio] 12.5 % Normal 11.0-15.0 [facility] Comment on above: Performed By: #### L IPID, CMP, T7, BNP, TSH #### [facility] [address] [place] [address] Dr. David Das Hematocrit (Bld) [Volume fraction] 43.6 % Normal 36.0-48.0 [facility] Comment on above: Performed By: #### L IPID, CMP, T7, BNP, TSH #### [facility] [address] [place] [address] Dr. David Das Hemoglobin (Bld) [Mass/Vol] 14.2 g/dL Normal 12.0-16.0 [facility] Comment on above: Performed By: #### L IPID, CMP, T7, BNP, TSH #### [facility] [address] [place] [address] Dr. David Das IG # 0.01 10e3/ul Normal 0.00-0.03 [facility] Comment on above: Performed By: #### L IPID, CMP, T7, BNP, TSH #### [facility] [address] [place] [address] Dr. David Das IG % 0.2 % Normal 0.0-0.5 [facility] Comment on above: Performed By: #### L IPID, CMP, T7, BNP, TSH #### [facility] [address] [place] [address] Dr. David Das LYMPH # 1.8 103/ul Normal 1.2-3.8 [facility] Comment on above: Performed By: #### L IPID, CMP, T7, BNP, TSH #### [facility] [address] [place] [address] Dr. David Das Lymphocytes/100 WBC (Bld) 32.0 % Normal 20.5-60.0 [facility] Comment on above: Performed By: #### L IPID, CMP, T7, BNP, TSH #### [facility] [address] [place] [address] Dr. David Das MANUAL DIFF REQ NO Normal [facility] Comment on above: Performed By: #### L IPID, CMP, T7, BNP, TSH #### [facility] [address] [place] [address] Dr. David Das MCH (RBC) [Entitic mass] 30.8 pg Normal 26.7-34.0 [facility] Comment on above: Performed By: #### L IPID, CMP, T7, BNP, TSH #### [facility] [address] [place] [address] Dr. David Das MCHC (RBC) [Mass/Vol] 32.6 g/dL Normal 29.9-35.2 [facility] Comment on above: Performed By: #### L IPID, CMP, T7, BNP, TSH #### [facility] [address] [place] [address] Dr. David Das MCV (RBC) [Entitic vol] 94.6 fL Normal 81.0-99.0 [facility] Comment on above: Performed By: #### L IPID, CMP, T7, BNP, TSH #### [facility] [address] [place] [address] Dr. David Das MONO # 0.4 103/ul Normal 0.3-0.8 [facility] Comment on above: Performed By: #### L IPID, CMP, T7, BNP, TSH #### [facility] [address] [address] [address] David Das Monocytes/100 WBC (Bld) 6.5 % Normal 1.7-12.0 [facility] Comment on above: Performed By: #### L IPID, CMP, T7, BNP, TSH #### [facility] [address] [place] [address] Dr. David Das NEUT # 3.3 103/ul Normal 1.4-6.5 [facility] Comment on above: Performed By: #### L IPID, CMP, T7, BNP, TSH #### [facility] [address] [place] [address] Dr. David Das Neutrophils/100 WBC (Bld) 59.1 % Normal 43.0-75.0 [facility] Comment on above: Performed By: #### L IPID, CMP, T7, BNP, TSH #### [facility] [address] [place] [address] Dr. David Das Platelet mean volume (Bld) [Entitic vol] 10.5 fL Normal 9.5-13.5 [facility] Comment on above: Performed By: #### L IPID, CMP, T7, BNP, TSH #### [facility] [address] [place] [address] Dr. David Das PLT 195 103/ul Normal 150-450 [facility] Comment on above: Performed By: #### L IPID, CMP, T7, BNP, TSH #### [facility] [address] [place] [address] Dr. David Das RBC 4.61 106/ul Normal 4.20-5.40 [facility] Comment on above: Performed By: #### L IPID, CMP, T7, BNP, TSH #### [facility] [address] [address] [address] David Das WBC 5.7 103/ul Normal 4.0-11.0 [facility] Comment on above: Performed By: #### L IPID, CMP, T7, BNP, TSH #### [facility] [address] [address] [address] David Das FREE THYROXINE INDEX T7on FTI 2.41 Normal [facility] Comment on above: Performed By: #### L IPID, CMP, T7, BNP, TSH #### [facility] [address] [place] [address] Dr. David Das T3U 33.0 % Normal 23.5-40.5 [facility] Comment on above: Performed By: #### L IPID, CMP, T7, BNP, TSH #### [facility] [address] [place] [address] Dr. David Das T4 [Mass/Vol] 7.30 ug/dL Normal 5.53-11.00 [facility] Comment on above: Performed By: #### L IPID, CMP, T7, BNP, TSH #### [facility] [address] [place] [address] Dr. David Das GLYCOHEMOGLOBIN A1Con 2021 ADA RECOMMENDATION ADA THERAPEUTIC TARGET 6.0 - 7.0 ACTION SUGGESTED > 7.0 Normal [facility] Comment on above: Performed By: #### A 1C #### [facility] [address] [place] [address] Dr. David Das Glucose [Mass/Vol] 100 mg/dL Normal [facility] Comment on above: Performed By: #### A 1C #### [facility] [address] [place] [address] Dr. David Das HbA1c (Bld) [Mass fraction] 5.1 % Normal <=6.0 [facility] Comment on above: Performed By: #### A 1C #### [facility] [address] [address] [address] David Das IRONon 02-01-2022 Iron [Mass/Vol] 101.0 ug/dL Normal 37.0-170.0 [facility] Comment on above: Performed By: #### L IPID, CMP, T7, BNP, TSH #### [facility] [address] [address] [address] David Das LIPID PROFILEon 02-01-2022 CHOL-HDL RATIO NORM SEE BELOW Normal [facility] Comment on above: Result Comment: 3.3 - 4.4 LOW RISK 4.4 - 7.1 AVERAGE RISK 7.1 - 11.0 MODERATE RISK >11.0 HIGH RISK Performed By: #### L IPID, CMP, T7, BNP, TSH #### [facility] [address] [place] [address] Dr. David Das Cholesterol [Mass/Vol] 123 mg/dL Normal <=200 [facility] Comment on above: Performed By: #### L IPID, CMP, T7, BNP, TSH #### [facility] [address] [address] [address] David Das Cholesterol in HDL [Mass/Vol] 44 mg/dL Normal 40-60 [facility] Comment on above: Performed By: #### L IPID, CMP, T7, BNP, TSH #### [facility] [address] [address] [address] David Das Cholesterol in LDL [Mass/Vol] 63.2 mg/dL Normal [facility] Comment on above: Performed By: #### L IPID, CMP, T7, BNP, TSH #### [facility] [address] [address] [address] David Das Cholesterol.total/Chol esterol in HDL [Mass ratio] 2.8 {ratio} Normal [facility] Comment on above: Performed By: #### L IPID, CMP, T7, BNP, TSH #### [facility] [address] [address] [address] David Das HDL NORMAL > or = 60 mg/dl - LO W CARDIOVASCULAR RISK <40 mg/dl - HIGH CARDIOVASCULAR RISK Normal [facility] Comment on above: Performed By: #### L IPID, CMP, T7, BNP, TSH #### [facility] [address] [address] [address] David Das LDL CALC NORMAL SEE BELOW Normal [facility] Comment on above: Result Comment: <100 mg/dl OPTIMAL 100 - 129 mg/dl NEAR OR ABOVE OPTIMAL 130 - 159 mg/dl BORDERLINE HIGH 160 - 189 mg/dl HIGH >190 mg/dl VERY HIGH Performed By: #### L IPID, CMP, T7, BNP, TSH #### [facility] [address] [address] [address] David Das Triglyceride [Mass/Vol] 79 mg/dL Normal <=150 [facility] Comment on above: Performed By: #### L IPID, CMP, T7, BNP, TSH #### [facility] [address] [place] [address] Dr. David Das VLDL CALC 15.8 mg/dL Normal [facility] Comment on above: Performed By: #### L IPID, CMP, T7, BNP, TSH #### [facility] [address] [place] [address] Dr. David Das PROF 14(COMP METB)on 022 Albumin [Mass/Vol] 3.9 g/dL Normal 3.4-5.0 [facility] Comment on above: Performed By: #### L IPID, CMP, T7, BNP, TSH #### [facility] [address] [address] [address] David Das Albumin/Globulin [Mass ratio] 1.2 {ratio} Normal [facility] Comment on above: Performed By: #### L IPID, CMP, T7, BNP, TSH #### [facility] [address] [address] [address] David Das ALP [Catalytic activity/Vol] 49 U/L Normal 46-116 [facility] Comment on above: Performed By: #### L IPID, CMP, T7, BNP, TSH #### [facility] [address] [address] [address] David Das ALT [Catalytic activity/Vol] 13 U/L Critically low 14-59 [facility] Comment on above: Performed By: #### L IPID, CMP, T7, BNP, TSH #### [facility] [address] [address] [address] David Das Anion gap [Moles/Vol] 12.6 mmol/L Normal [facility] Comment on above: Performed By: #### L IPID, CMP, T7, BNP, TSH #### [facility] [address] [address] [address] David Das AST [Catalytic activity/Vol] 10 U/L Critically low 15-37 [facility] Comment on above: Performed By: #### L IPID, CMP, T7, BNP, TSH #### [facility] [address] [place] [address] Dr. David Das Bilirubin [Mass/Vol] 0.4 mg/dL Normal 0.2-1.3 [facility] Comment on above: Performed By: #### L IPID, CMP, T7, BNP, TSH #### [facility] [address] [address] [address] David Das Calcium [Mass/Vol] 8.7 mg/dL Normal 8.5-10.1 [facility] Comment on above: Performed By: #### L IPID, CMP, T7, BNP, TSH #### [facility] [address] [address] [address] David Das Chloride [Moles/Vol] 106 mmol/L Normal 98-107 [facility] Comment on above: Performed By: #### L IPID, CMP, T7, BNP, TSH #### [facility] [address] [place] [address] Dr. David Das CO2 [Moles/Vol] 27.9 mmol/L Normal 22.0-30.0 [facility] Comment on above: Performed By: #### L IPID, CMP, T7, BNP, TSH #### [facility] [address] [place] [address] Dr. David Das Creatinine [Mass/Vol] 0.69 mg/dL Normal 0.52-1.04 [facility] Comment on above: Performed By: #### L IPID, CMP, T7, BNP, TSH #### [facility] [address] [address] [address] David Das EGFR-AF CYPRIOT >60 Normal >=60 [facility] Comment on above: Performed By: #### L IPID, CMP, T7, BNP, TSH #### [facility] [address] [address] [address] David Das EGFR-NON AF CYPRIOT >60 Normal >=60 [facility] Comment on above: Performed By: #### L IPID, CMP, T7, BNP, TSH #### [facility] [address] [place] [address] Dr. David Das Globulin (S) [Mass/Vol] 3.2 g/dL Normal [facility] Comment on above: Performed By: #### L IPID, CMP, T7, BNP, TSH #### [facility] [address] [address] [address] David Das Glucose [Mass/Vol] 104 mg/dL Normal 74-106 [facility] Comment on above: Performed By: #### L IPID, CMP, T7, BNP, TSH #### [facility] [address] [place] [address] Dr. David Das Potassium [Moles/Vol] 4.5 mmol/L Normal 3.4-5.0 [facility] Comment on above: Performed By: #### L IPID, CMP, T7, BNP, TSH #### [facility] [address] [place] [address] Dr. David Das Protein [Mass/Vol] 7.1 g/dL Normal 6.1-8.2 [facility] Comment on above: Performed By: #### L IPID, CMP, T7, BNP, TSH #### [facility] [address] [place] [address] Dr. David Das Sodium [Moles/Vol] 142 mmol/L Normal 137-145 [facility] Comment on above: Performed By: #### L IPID, CMP, T7, BNP, TSH #### [facility] [address] [address] [address] David Das Urea nitrogen [Mass/Vol] 12.0 mg/dL Normal 7.0-18.0 [facility] Comment on above: Performed By: #### L IPID, CMP, T7, BNP, TSH #### [facility] [address] [place] [address] Dr. David Das Urea nitrogen/Creatinine [Mass ratio] 17.4 mg/mg Normal [facility] Comment on above: Performed By: #### L IPID, CMP, T7, BNP, TSH #### [facility] [address] [address] [address] David Das TSHon 02-01-2022 TSH 1.718 uIU/mL Normal 0.470-4.680 [facility] Comment on above: Performed By: #### L IPID, CMP, T7, BNP, TSH #### [facility] [address] [address] [address] David Das TSH RANGE SEE BELOW Normal [facility] Comment on above: Result Comment: <0.3 4 UIU/ml HYPERTHYROID 0.34-5.60 UIU/ml EUTHYROID >5.60 UIU/ml HYPOTHYROID Performed By: #### L IPID, CMP, T7, BNP, TSH #### [facility] [address] [place] [address] Dr. David Das [facility]18 SARS-CoV-2 (COVID-19) RNA BACILIO+probe Ql (Unsp spec) Not detected Normal NOT DETECTED [facility] Comment on above: Result Comment: This test is not yet approved or cleared by the [place] FDA. When there are no FDA-approved or cleared tests available, and other criteria are met, FDA can make tests available under an emergency access mechanism called an Emergency Use Authorization (EUA). The EUA for this test is supported by the Route Inspector of Health and Human Service's (HHS's) declaration [...] consistent with SARS-CoV-2. Performed By: #### C [facility] #### [facility] [address] [place] [address] Dr. David Das Vital Signs Date Time Vital Sign Value Performing Clinician Facamando lity 08-01-2025 14:38-0400 Body mass index (BMI) [Ratio] 23.96 kg/m2 Gonzales Omayra DO Work Phone: [facility] 08-01-2025 14:38-0400 Body weight 59.42 kg Gonzales Omayra DO Work Phone: [facility] 08-01-2025 14:38-0400 Diastolic blood pressure 68 mm[Hg] Gonzales Omayra DO Work Phone: [facility] 08-01-2025 14:38-0400 Systolic blood pressure 104 mm[Hg] Gonzales Omayra DO Work Phone: [facility] 07-20-2025 09:16-0400 Body mass index (BMI) [Ratio] 23.98 kg/m2 Cherie Callahan ROTOPRINTER Work Phone: [facility] 07-20-2025 09:16-0400 Body weight 59.48 kg Cherie Sindy ROTOPRINTER Work Phone: [facility] 07-20-2025 09:16-0400 Diastolic blood pressure 70 mm[Hg] Cherie Sindy ROTOPRINTER Work Phone: [facility] 07-20-2025 09:16-0400 Systolic blood pressure 120 mm[Hg] Cherie Sindy ROTOPRINTER Work Phone: [facility] 07-13-2024 13:03-0400 Body mass index (BMI) [Ratio] 25.57 kg/m2 Gonzales Omayra DO Work Phone: [facility] 07-13-2024 13:03-040 Body weight 63.41 kg Gonzales Omayra DO Work Phone: [facility] 07-13-2024 13:03-0400 Diastolic blood pressure 74 mm[Hg] Gonzales Omayra DO Work Phone: [facility] 07-13-2024 13:03-0400 Systolic blood pressure 104 mm[Hg] Gonzales Omayra DO Work Phone: [facility] Encounters Encounter Date Encounter Type Care Provider Facility Start: 08-21-2025 End: 08-21-2025 Departed Referred Marvel Sidhu [facility] Start: 08-21-2025 End: 08-21-2025 ambulatory Marvel Panchal [facility] Facility:[facility] Start: 08-18-2025 ambulatory Marvel Panchal [facility] Faci lity:[facility] Start: 08-14-2025 End: 08-14-2025 Clinisync Result Encounter Cherie Callahan NP Work Phone: [facility] External Department Unsolicited Start: 08-14-2025 End: 08-14-2025 Clinisync Result Encounter Cherie Callahan NP Work Phone: [facility] External Department Unsolicited Start: 08-01-2025 End: 08-01-2025 ambulatory GONZALES OMAYRA Not Available Start: 08-01-2025 End: 08-01-2025 Office outpatient visit 15 minutes Gonzales Omayra DO Work Phone: [facility] Comment on above: Pre-op examination; Labial pain; Dyspareunia in female; Pelvic pain; Difficulty urinating Start: 08-01-2025 End: 08-01-2025 Preprocedural examination done Gonzales Omayra DO Work Phone: [facility] Start: 07-20-2025 End: 07-20-2025 Bamboo flowsheet Cherie Callahan NP Work Phone: [facility] Start: 07-20-2025 End: 07-23-2025 Bamboo flowsheet Cherie Callahan ROTOPRINTER Work Phone: [facility] Start: 07-20-2025 End: 07-23-2025 Clinisync Result Encounter Cherie Callahan ROTOPRINTER Work Phone: [facility] Unsolicited Start: 07-20-2025 End: 07-21-2025 External Result Encounter Cherie Callahan ROTOPRINTER Work Phone: [facility] Unsolicited Start: 07-20-2025 End: 07-20-2025 Patient encounter procedure Cherie Callahan ROTOPRINTER Work Phone: [facility] Work Phone: Start: 07-20-2025 End: 07-20-2025 Periodic preventive med est patient 18-39 yrs Cherie Mesaly ROTOPRINTER Work Phone: [facility] Comment on above: Well woman exam with routine gynecological exam (Primary Dx); Exposure to STD; Vaginal discharge; Pelvic pain in female; Hormone disorder; Cervicitis and endocervicitis Start: 07-20-2025 End: 07-20-2025 ambulatory CHERIE CALLAHAN Not Available Start: 04-12-2025 End: 04-12-2025 ambulatory Deborah Deutsch Facility:[facility] Start: 02-27-2025 ambulatory MATERIALS DEVELOPMENT ENGINEER HAMMAD SUTTON Faci lity:[facility] Start: 02-22-2025 End: 02-22-2025 ambulatory MATERIALS DEVELOPMENT ENGINEER HAMMAD A HERMAN [facility] Start: 09-06-2024 End: 09-06-2024 ambulatory HAMMAD A HERMAN [facility] Start: 09-06-2024 ambulatory HAMMAD HERMAN Facility :[facility] Start: 07-13-2024 End: 07-13-2024 Office outpatient visit 15 minutes Gonzales Omayra DO Work Phone: [facility] Comment on above: 6 weeks f ollow-up; Pre-op examination; Labial pain Start: 07-13-2024 End: 07-13-2024 Preprocedural examination done Gonzales Murciao DO Work Phone: [facility] Start: 12-28-2023 Clinisync Result Encounter Cor ey Omayra DO Work Phone: [facility] External Department Unsolicited Start: 12-28-2023 Clinisync Result Encounter Cor ey Omayra DO Work Phone: [facility] Unsolicited Start: 11-05-2022 End: 11-06-[address] NNEKA [...] Date Procedure Procedure Detail Performing Clinician Start: 08-14-2025 ALL T3 FREE Cherie sanders ROTOPRINTER Work Phone: Start: 08-14-2025 ALL THYROXINE (T4) Krystian Callahan ROTOPRINTER Work Phone: Start: 08-14-2025 TBH GLUCOSE BLOOD Woo Callahan ROTOPRINTER Work Phone: Start: 07-20-2025 RECURRENT VAGINITIS (HTRX) Cherie Callahan ROTOPRINTER Work Phone: Start: 07-20-2025 End: 07-20-2025 Urnls dip stick/tablet rgnt non-auto w/o micrscp Cherie Callahan ROTOPRINTER Work Phone: Start: 07-20-2025 IGP,APTIMA HPV,AGE GDLN Cherie Callahan ROTOPRINTER Work Phone: Start: 07-20-2025 Microscopic observat ion [Identifier] in Cervix by Cyto stain Gonzales Omayra DO Work Phone: Start: 12-28-2023 ALL CBC WITH AUTO DIFF Gonzales Omayra DO Work Phone: Start: 07-06-2023 Microscopic observat ion [Identifier] in Cervix by Cyto stain Gonzales Omayra DO Work Phone: Plan of Treatment Date Care Activity Detail Author Start: 07-20-2030 Screening for malign ant neoplasm of cervix [facility] Start: 07-06-2028 Screening for malign ant neoplasm of cervix [facility] Start: 09-07-2025 End: 09-07-2025 Patient encounter procedure SAIRA TORRES Start: 08-01-2025 End: 08-01-2025 Patient encounter procedure 08/01/2025 2:20 PM EDT Consult SAIRA TORRES [address] [place] [phone] Gonzales Cutler DO [address] [place] [address] [facility] Start: 07-20-2025 End: 07-20-2026 C-peptide C-peptide Lab Routine Hormone disorder Expected: 07/20/2025 (Approximate), Expires: 07/20/2026 [facility] Comment on above: Expected: 07/20/2025 (Approximate), Expires: 07/20/2026 Start: 07-20-2025 End: 07-20-2026 Cortisol free Cortisol, free Lab Routine Hormone disorder Expected: 07/20/2025 (Approximate), Expires: 07/20/2026 [facility] Comment on above: Expected: 07/20/2025 (Approximate), Expires: 07/20/2026 Start: 07-20-2025 End: 07-20-2026 Glucose [Mass/volume] in Serum or Plasma Glucose, random Lab Routine Hormone disorder Expected: 07/20/2025 (Approximate), Expires: 07/20/2026 [facility] Comment on above: Expected: 07/20/2025 (Approximate), Expires: 07/20/2026 Start: 07-20-2025 End: 07-20-2026 Insulin, total Insulin, total Lab Routine Hormone disorder Expected: 07/20/2025 (Approximate), Expires: 07/20/2026 [facility] Comment on above: Expected: 07/20/2025 (Approximate), Expires: 07/20/2026 Start: 07-20-2025 End: 07-20-2026 Serotonin serum Serotonin serum Lab Routine Hormone disorder Expected: 07/20/2025 (Approximate), Expires: 07/20/2026 [facility] Comment on above: Expected: 07/20/2025 (Approximate), Expires: 07/20/2026 Start: 07-20-2025 End: 07-20-2026 Thyroglobulin Thyroglobulin Lab Routine Hormone disorder Expected: 07/20/2025 (Approximate), Expires: 07/20/2026 [facility] Comment on above: Expected: 07/20/2025 (Approximate), Expires: 07/20/2026 Start: 07-20-2025 End: 07-20-2026 Thyroglobulin Antibody Thyroglobulin Antibody Lab Routine Hormone disorder Expected: 07/20/2025 (Approximate), Expires: 07/20/2026 [facility] Comment on above: Expected: 07/20/2025 (Approximate), Expires: 07/20/2026 Start: 07-20-2025 End: 07-20-2026 Thyrotropin [Units/volume] in Serum or Plasma T4 Lab Routine Hormone disorder Expected: 07/20/2025 (Approximate), Expires: 07/20/2026 [facility] Comment on above: Expected: 07/20/2025 (Approximate), Expires: 07/20/2026 Start: 07-20-2025 End: 07-20-2025 Patient encounter procedure 07/20/2025 9:00 AM EDT Procedure Visit [facility] [address] [place] [phone] Cherie Callahan, ROTOPRINTER [address] [place] [phone] Arrived [facility] Comment on above: Arrived Start: 07-17-2025 Influenza vaccination Influenza Vacc ine (#1) [facility] Start: 07-17-2024 Influenza vaccination Influenza Vacc ine (#1) [facility] Start: 01-06-2024 End: 01-06-2024 Patient encounter procedure 01/06/2024 2:10 PM EST [facility] [address] [place] [phone] Gonzales Cutler DO [address] [place] [address] [facility] Start: 07-17-2023 Influenza vaccination Influenza Vacc ine (#1) [facility] Start: 2023 Screening for malign ant neoplasm of cervix [facility] Start: 2014 Screening for malign ant neoplasm of cervix Pap Smear [facility] CHLAMYDIA TRACHOMATI S (GENITO/STI) CHLAMYDIA TRACHOMATIS (GENITO/STI) Lab Routine Exposure to STD Ordered: 07/20/2025 [facility] Comment on above: Ordered: 07/20/2025 Cytology Cervical or vaginal smear or scraping study Pap Smear Pathology and Cytology Routine Well woman exam with routine gynecological exam Ordered: 07/20/2025 [facility] Work Phone: Comment on above: Ordered: 07/20/2025 DHEA-sulfate DHEA-sulfate Lab Routine Hormone disorder Ordered: 07/20/2025 [facility] Comment on above: Ordered: 07/20/2025 Estradiol Estradiol Lab Ro utine Hormone disorder Ordered: 07/20/2025 [facility] Comment on above: Ordered: 07/20/2025 Estrone Estrone Lab Rout ine Hormone disorder Ordered: 07/20/2025 [facility] Comment on above: Ordered: 07/20/2025 Ferritin [Mass/volum e] in Serum or Plasma Ferritin Lab Routine Hormone disorder Ordered: 07/20/2025 [facility] Comment on above: Ordered: 07/20/2025 Human papilloma viru s DNA [Presence] in Unspecified specimen by Probe with amplification HPV DNA probe, amplified Microbiology Routine Well woman exam with routine gynecological exam Ordered: 07/20/2025 [facility] Comment on above: Ordered: 07/20/2025 Neisseria gonorrhoea e DNA [Presence] in Unspecified specimen by BACILIO with probe detection Neisseria gonorrhea DNA probe, direct Lab Routine Exposure to STD Ordered: 07/20/2025 [facility] Comment on above: Ordered: 07/20/2025 Progesterone Progesterone Lab Routine Hormone disorder Ordered: 07/20/2025 [facility] Comment on above: Ordered: 07/20/2025 Sex hormone binding globulin Sex hormone binding globulin Lab Routine Hormone disorder Ordered: 07/20/2025 [facility] Comment on above: Ordered: 07/20/2025 SURESWAB(R) ADVANCED VAGINITIS PLUS, TMA SURESWAB(R) ADVANCED VAGINITIS PLUS, TMA Pathology and Cytology Routine Vaginal discharge Ordered: 07/20/2025 [facility] Comment on above: Ordered: 07/20/2025 T3, reverse T3, reverse Lab Routine Hormone disorder Ordered: 07/20/2025 [facility] Comment on above: Ordered: 07/20/2025 TESTOSTERONE, FREE TESTOSTERONE, FREE Lab Routine Hormone disorder Ordered: 07/20/2025 [facility] Comment on above: Ordered: 07/20/2025 Testosterone, free, total Testos terone, free, total Lab Routine Hormone disorder Ordered: 07/20/2025 [facility] Comment on above: Ordered: 07/20/2025 Thyroid peroxidase antibody Thyroid peroxidase antibody Lab Routine Hormone disorder Ordered: 07/20/2025 [facility] Comment on above: Ordered: 07/20/2025 Thyroxine (T4) free [Mass/volume] in Serum or Plasma T4, free Lab Routine Hormone disorder Ordered: 07/20/2025 [facility] Comment on above: Ordered: 07/20/2025 Triiodothyronine (T3 ) Free [Mass/volume] in Serum or Plasma T3, free Lab Routine Hormone disorder Ordered: 07/20/2025 [facility] Comment on above: Ordered: 07/20/2025 Vitamin D 1,25 dihydroxy Vitamin D 1,25 dihydroxy Lab Routine Hormone disorder Ordered: 07/20/2025 [facility] Comment on above: Ordered: 07/20/2025 Immunizations Immunization Date Immunization Notes Care Provider Debbie pedro pablo 08-03-2022 influenza virus vacc ine, unspecified formulation Gonzales Cutler DO Work Phone: [facility] Payers Date Payer Category Payer Self-pay [id number] 2023 [facility] BCBS Memb er Subscriber Plan / Payer (Effective 2023-Present) Name: Zara Gao Relation to Subscriber: Spouse Name: Alla Gao Date of : 1992 Address: [address] [place] [id number] Payer ID: Not on file Type: Not on file Address: [address] [place] [id number] 2023 Unknown BCBS BCBS xxxxxx [id number] 2023-Present [phone] [address] [id number] 2023 Unknown [id number] 1993 Unknown [id number] 2.16.840.1.371994.3.579.2. 593 1993 Unknown [id number] 2.16.840.1.243782.3.579.2. 593 1993 Unknown [id number] 2.16.840.1.239256.3.579.2. 593 1993 Unknown [id number] .16.840.1.315237.3.579.2. 593 1993 Unknown [id number] 2.16.840.1.304823.3.579.2. 593 1993 Unknown [id number] 2.16.840.1.377919.3.579.2. 593 1993 Unknown [id number] 2.16.840.1.028802.3.579.2. 593 1993 Unknown [id number] 2.16.840.1.784671.3.579.2. 593 1993 Unknown [id number] 2.16.840.1.746263.3.579.2. 593 1993 Unknown [id number] 2.16.840.1.769690.3.579.2. 727 1993 Unknown [id number] 2.16.840.1.761701.3.579.2. 727 1993 Unknown [id number] 2.16.840.1.119007.3.579.2. 727 1993 Unknown [id number] 2.16.840.1.366028.3.579.2. 727 1993 Unknown [id number] 2.16.840.1.635443.3.579.2. 727 1993 Unknown [id number] 2.16.840.1.275600.3.579.2. 1259 1993 Unknown [id number] 2.16.840.1.974144.3.579.2. 1259 1959 Self-pay 1959 Unknown [id number] 1959 Unknown [id number] 1959 Unknown [id number] 1959 Unknown [id number] Social History Date Type Detail Facility Start: 07-01-2023 Tobacco smoking status MDIS Never smoked tobacco [facility] Start: 07-01-2023 End: 09-12-2024 History of Social function [facility] Start: 07-01-2023 End: 09-12-2024 Tobacco use panel [facility] Start: 11-13-2023 [facility] Start: 1995 Sex Assigned At Female [facility] Start: 05-08-2023 Gender identity Identifies as female gender (finding) [facility] Start: 05-08-2023 Sexual orientation Heterosexual (finding) [facility] Tobacco smoking stat NHIS Unknown if ever smoked [facility] Work Phone: Sex Female (finding) [facility] Goals Date Patient Goal Desired Activity /State Personal health goal History of Present illness Narrative 08-01-2025 Gonzales Cutler, - 08/01/2025 2:20 PM EDT Note Date & Type Note Facility 08-01-2025 History of Presen t illness Narrative Reason for Appointment: Patient ID: Zara Gao is a 30 y.o. female who presents for Pre-op Visit Patient presents today for Pre Op appointment. Patient is scheduled to undergo Labiaplasty on 08-25-[address] Cutler at [facility]. MEDICATIONS Current Outpatient Medications Medication Instructions [...] Active Ambulatory Problems Diagnosis Date Noted Surrogate ([facility] 07/06/2023 Resolved Ambulatory Problems Diagnosis [...] nursing note reviewed. Exam conducted with a residential installer present. Vitals: Estimated body mass index is [...] this time. Patient will undergo Labiaplasty on 08-25-25. Surgical consents were signed, mmc was reviewed, and patient is to proceed to [facility] OR. Follow Up: Patient is to follow up one to two weeks postoperatively to assess proper healing and recovery from procedure. Documented by Bailey Gallegos LPN on behalf of: Gonzales Cutler DO documented in this encounter [facility] History of Present illness Narrative 07-20-2025 Cherie [...] Active Ambulatory Problems Diagnosis Date Noted Surrogate ([facility]) 07/06/2023 Resolved Ambulatory Problems Diagnosis Date Noted [...] nursing note reviewed. Exam conducted with a residential installer present. Vitals: Estimated body mass index is [...] Cherie Callahan NP documented in this encounter [facility] Clinical Note 02-22-2025 Note Date & Type [...] drink alcohol: ? (more content not included)... [facility] History of Present illness Narrative 07-13-2024 Mary Wu - 07/13/2024 1:00 PM EDT Note Date & Type Note Facility 07-13-2024 History of Presen t illness Narrative Reason for Appointment: Patient ID: Zara Gao is a 29 y.o. female who presents for Care and Pre-op Visit Patient presents today for 6 Week Post /Pre Op appointment. Patient is scheduled to undergo Labial Reconstruction (Labiaplasty) on 08/12/[address] Cutler at [facility]. MEDICATIONS Current Outpatient Medications Medication Instructions [...] 6 HOURS NEEDED FOR NAUSEA OR VOMITING [id number] ( 1 + IRON PO) 1 each, [...] nursing note reviewed. Exam conducted with a residential installer present. Vitals: Estimated body mass index is [...] reviewed, and patient is to proceed to [facility] OR. Follow Up: Patient is to follow [...] endocervicitis documented in this encounter [facility] Evaluation note Note Date & Type Note Facility Evaluation note Diagnosis Pre-op examination Labial pain Unspecified symptom associated with female genital organs Dyspareunia in female Pelvic pain Difficulty urinating Other symptoms involving urinary system documented in this encounter [facility] Evaluation note Note Date & Type Note Facility Evaluation note No assessment information availa [facility] Work Phone: Reason for referral (narrative) Note Date & Type Note Facility Reason for referral (narrative) No reason for referral information available [facility] Work Phone: Summary Purpose Family History No Family History [...] Directives Records FoundNo Advanced Directives Records Found Chief Complaint and Reason for Visit Chief Complaint Admit Date Pillars August 21, 2025 7: 39am Additional Source Comments INFORMATION SOURCE (unrecogn ized section and content) DATE CREATED AUTHOR 11/13/2022 [facility] DATE CREATED AUTHOR AUTHOR'S ORGANIZ ATION 09/08/2024 [facility] DATE CREATED AUTHOR AUTHOR'S ORGANIZ ATION 09/10/2024 [facility] DATE CREATED AUTHOR AUTHOR'S ORGANIZ ATION 02/24/2025 [facility] DATE CREATED AUTHOR AUTHOR'S ORGANIZ ATION 04/13/2025 [facility] DATE CREATED AUTHOR AUTHOR'S ORGANIZ ATION 05/31/2025 [facility] DATE CREATED AUTHOR AUTHOR'S ORGANIZ ATION 08/02/2025 [facility] EPIC DATE CREATED AUTHOR AUTHOR'S ORGANIZ ATION 08/22/2025 [facility] Reason for Visit (unrecogniz ed section and content) Reason Comments Care Pre-op Visit Reason Comments Well Women Visit Reason Comments Pre-op Visit Care Teams (unrecognized sec tion and content) Team Status: Active Member Role Status Dates KRYSTYNA Gann Primary Care Provider Active Team Status: Inactive Member Role Status Dates KRYSTYNA Gann Primary Care Provider Active Start: August 21, 2025 End: August 21, 2025 Marvel GUILLEN , DO [facility] Attending Provider Active Start: August 21, 2025 End: August 21, 2025 Goals (unrecognized section and content) Goals may be documented in a n alternate section FOR RECORDS PERTAINING TO PATIENTS WHO ARE [...] BE BASED ON THE PRIMARY CLINICAL RECORDS. [facility] [employer] [facility]. provides no warranty or guarantee of the accuracy or completeness of information in this document.
[2025-08-25 09:57] LABS: Hematocrit 42.9 % (36.0-48.0); Hemoglobin 14.5 g/dL (12.0-16.0); Immature Granulocytes Abs Auto 0.01 10^3/uL (0.00-0.03); Immature Granulocytes Pct Auto 0.3 % (0.0-0.5); Lymphocytes Absolute Auto 1.8 10^3/uL (1.2-3.8); Mean Corpuscular HGB Conc 33.8 g/dL (29.9-35.2); Mean Corpuscular Hemoglobin 31.2 pg (26.7-34.0); Mean Corpuscular Volume 92.3 fL (81.0-99.0); Platelet Count 198 10^3/uL (150-450); Red Blood Count 4.65 10^6/uL (4.20-5.40); White Blood Count 4.0 10^3/uL (4.0-11.0)
[2025-08-25] MEDS: BACITRACIN OINTMENT 28.4 GM TUBE 1 APPLIC TOPICAL (11:01)
[2025-08-25] MEDS: HYDROMORPHONE HCL 0.5 MG/0.5 ML SYRINGE IV (11:25)
--- NOTE | 2025-08-25 11:29 | PC.NURSE ---
1125: pt pain 04/25,medicated with 0.5mg IV Dilaudid per 's order.
[2025-08-25] MEDS: BENZOCAINE/MENTHOL 85 GRAM SPRAY BOTTLE 1 APPLIC TOPICAL (11:33)
[2025-08-25] MEDS: ACETAMINOPHEN 500 MG TABLET PO (11:45)
--- NOTE | 2025-08-25 11:51 | PC.NURSE ---
1145: pt pain 5/10,pt given 500mg PO Tylenol.
--- NOTE | 2025-08-25 13:31 | PC.NURSE ---
Patient up to the bathroom and was able to void without issue. Noted swelling to labia. Sutures intact. Patient cleansed area gently with wet wipes. Ice pack reapplied to labia area when returned to the bed.
--- NOTE | 2025-09-06 08:25 | PM.ONB ---
Brief Operative Note Date of procedure: 09/06/25 Pre-op diagnosis general: dyspareunia, enlarged labia minora Post-op diagnosis: same as pre-op Procedure: NAME OF PROCEDURE: [ bilateral vaginal labiaplasty] PROCEDURE: The patient was taken back to the Operating Room where she was prepped and draped in normal sterile fashion after being placed under general anesthesia without difficulty. She was also placed in the dorsal lithotomy position. the pts right labia minor was identified, the area for removal was clearly marked using a sterile marker, the area was incised and removed using a knife and sharp metzenbaum scissors, bovie was used for excellent hemostasis, the skin was then approximated using 4-0 vicryl, this was performed on the contralateral side as well, sponge lap and needle count correct times 2, pt taken into recovery in stable condition Anesthesia: MAC Surgeon: Power Cutler Estimated blood loss (mL): 5 Pathology: none sent Condition: stable Disposition: PACU
== END 2025-08-25 14:05 | disposition home or self-care (01) ==
LOC: SURGOUT 07:47
PROVIDERS: Visit Provider Obstetrics & Gynecology
PROC: (CPT 906; principal; 2025-08-25 09:00)
DX: N94.89 Other specified conditions associated with female genital organs and menstrual cycle (principal); N94.10 Unspecified dyspareunia; R39.198 Other difficulties with micturition; J45.909 Unspecified asthma, uncomplicated; F41.9 Anxiety disorder, unspecified
CPT/HCPCS: 56620; 36415; 84702; 85025; J0131; J1100; J1171; J1885; J2250; J2405; J2704; J3010